=== PATIENT | female | born 1955 | race Caucasian/White ===

== ENCOUNTER 2019-01-01 16:47 | Inpatient (IN) | payer MEDICARE, OTHER ==
[~2019-01-01] VITALS: Ht 182.9 cm; Wt 120.8 kg
[2019-01-01] MEDS ORDERED: NITROGLYCERIN 0.4 MG SL TABS BTL 25'S SL ONE (17:00)
[2019-01-01] MEDS ORDERED: ASPIRIN 81 MG CHEW (CHILDREN'S ASA) ONE (17:00)
[2019-01-01] MEDS ORDERED: ONDANSETRON 4 MG/2 ML (SDV) Z0FRAN ONE (17:01)
--- NOTE | 2019-01-01 17:12 | ED Chest Pain ---
General Chief Complaint: Chest Pain Stated Complaint: CHEST PAIN Nursing Triage Note: PATIENT C/O CHEST PAIN SINCE AROUND 1400. STATES THAT THE PAIN IN HER CHEST AND RADIATES DOWN BILATERAL UPPER EXTREMITIES Nursing Sepsis Screen: No Definite Risk Source: patient Exam Limitations: no limitations History of Present Illness Date Seen by Provider: January 01, 2019 Time Seen by Provider: 16:49 Initial Comments Patient presents to ER by private conveyance with her significant other and chief complaint that for the past 3 hours she's been experiencing some constant , progressively worsening, sharp chest pain and tightness across the front of her chest radiating down the bilateral shoulders and arms. She is having some nausea but no sweats. She has a little shortness of breath and does have a history of COPD but denies any wheezing. She has not had any coughing or fevers area and she has no history of coronary disease or stroke or heart failure but she did have some pains in her chest before that were diagnosed as probable bronchospasms a year or 2 ago. She's not noticing any swelling in her hands or feet. She has no orthopnea. She does smoke cigarettes about a pack per day and has high blood pressure but no hypercholesterolemia. She does take her medicines routinely. She has diabetes for which she is on Victoza. She did take some Motrin earlier but it did not help her pain. Allergies and Home Medications Allergies Coded Allergies: No Known Drug Allergies (Unverified , 01/01/19) Patient Home Medication List Home Medication List Reviewed: Yes Review of Systems Review of Systems Constitutional: No chills, No fever, No malaise EENTM: No Blurred Vision, No Double Vision Respiratory: Denies Cough; Shortness of Air; Denies Wheezing Cardiovascular: See HPI, Chest Pain; Denies Edema, Denies Syncope Gastrointestinal: Denies Abdomen Distended, Denies Abdominal Pain, Denies Constipated, Denies Diarrhea; Nausea Genitourinary: Denies Burning, Denies Discharge Musculoskeletal: No back pain, No joint pain Skin: No lesions, No lumps Past Hsqvqfy-Lyfoxy-Zqnrco Hx Patient Social History Alcohol Use: Denies Use Recreational Drug Use: No Smoking Status: Current Everyday Smoker Type Used: Cigarettes 2nd Hand Smoke Exposure: No Recent Foreign Travel: No Contact w/Someone Who Travel: No Recent Infectious Disease Expo: No Recent Hopitalizations: No Physical Abuse: No Sexual Abuse: No Mistreated: No Fear: No Seasonal Allergies Seasonal Allergies: No Past Medical History Surgeries: Yes (MELANOMA REMOVED FROM RIGHT SHOULDER AND FOREARM) Section, Hysterectomy Respiratory: No Cardiac: Yes Hypertension Neurological: 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 oz. 112.092120wg; BMI Method:Stated General Appearance: WD/WN, Anxious, Moderate Distress HEENT: Normal ENT Inspection, Moist Mucous Membranes Neck: Full Range of Motion, Normal Inspection Respiratory: Chest Non Tender, Lungs Clear, Normal Breath Sounds, No Accessory Muscle Use, No Respiratory Distress Cardiovascular: Regular Rate, Rhythm, No Edema, Normal Peripheral Pulses Gastrointestinal: Normal Bowel Sounds, Non Tender, Soft Extremity: Normal Capillary Refill, Normal Inspection, No Pedal Edema Neurologic/Psychiatric: Alert, Oriented x3 Skin: Normal Color, Warm/Dry Progress/Results/Core Measures Results/Orders Lab Results Laboratory Tests Test 01/01/19 16:59 Range/Units White Blood Count 19.0 H 4.3-11.0 10^3/uL Red Blood Count 4.90 4.35-5.85 10^6/uL Hemoglobin 15.7 11.5-16.0 G/DL Hematocrit 47 35-52 % Mean Corpuscular Volume 96 80-99 FL Mean Corpuscular Hemoglobin 32 25-34 PG Mean Corpuscular Hemoglobin Concent 34 32-36 G/DL Red Cell Distribution Width 12.5 10.0-14.5 % Platelet Count 293 130-400 10^3/uL Mean Platelet Volume 10.1 7.4-10.4 FL Neutrophils (%) (Auto) 70 42-75 % Lymphocytes (%) (Auto) 21 12-44 % Monocytes (%) (Auto) 7 0-12 % Eosinophils (%) (Auto) 1 0-10 % Basophils (%) (Auto) 1 0-10 % Neutrophils # (Auto) 13.2 H 1.8-7.8 X 10^3 Lymphocytes # (Auto) 4.0 1.0-4.0 X 10^3 Monocytes # (Auto) 1.4 H 0.0-1.0 X 10^3 Eosinophils # (Auto) 0.3 0.0-0.3 10^3/uL Basophils # (Auto) 0.1 0.0-0.1 10^3/uL Neutrophils % (Manual) 74 % Lymphocytes % (Manual) 15 % Monocytes % (Manual) 5 % Eosinophils % (Manual) 1 % Reactive Lymphocytes 5 % Blood Morphology Comment NORMAL Prothrombin Time 12.9 12.2-14.7 SEC INR Comment 0.9 0.8-1.4 Activated Partial Thromboplast Time 36 H 24-35 SEC Sodium Level 139 135-145 MMOL/L Potassium Level 3.8 3.6-5.0 MMOL/L Chloride Level 98 98-107 MMOL/L Carbon Dioxide Level 22 21-32 MMOL/L Anion Gap 19 H 5-14 MMOL/L Blood Urea Nitrogen 10 7-18 MG/DL Creatinine 0.70 0.60-1.30 MG/DL Estimat Glomerular Filtration Rate > 60 BUN/Creatinine Ratio 14 Glucose Level 244 H 70-105 MG/DL Calcium Level 9.3 8.5-10.1 MG/DL Corrected Calcium 8.9 8.5-10.1 MG/DL Magnesium Level 1.8 1.8-2.4 MG/DL Total Bilirubin 0.7 0.1-1.0 MG/DL Aspartate Amino Transf (AST/SGOT) 13 5-34 U/L Alanine Aminotransferase (ALT/SGPT) 16 0-55 U/L Alkaline Phosphatase 93 40-136 U/L Myoglobin 25.6 10.0-92.0 NG/ML Troponin T 19 H <=10 NG/L Pro-B-Type Natriuretic Peptide 202.9 H <75.0 PG/ML Total Protein 7.6 6.4-8.2 GM/DL Albumin 4.5 3.2-4.5 GM/DL My Orders Orders - JOSE LUND Continuous Ekg Monitoring (01/01/19 16:48) Ekg Tracing (01/01/19 16:48) Cbc With Automated Diff (01/01/19 17:02) Magnesium (01/01/19 17:02) Chest 1 View Ap/Pa Only (01/01/19 17:02) Comprehensive Metabolic Panel (01/01/19 17:02) Myoglobin Serum (01/01/19 17:02) Protime With Inr (01/01/19 17:02) Partial Thromboplastin Time (01/01/19 17:02) O2 (01/01/19 17:02) Lipid Panel (01/02/19 06:00) Aspirin Chewable Tablet (Baby Aspirin Ch (01/01/19 17:15) Nitroglycerin 0.4 Mg Btl 25's (Nitrostat (01/01/19 17:15) Ed Iv/Invasive Line Start (01/01/19 17:02) Troponin T (01/01/19 17:02) Probnp Fs (01/01/19 17:02) Ondansetron Injection (Zofran Injectio (01/01/19 17:15) Nitroglycerin 0.4 Mg Btl 25's (Nitrostat (01/01/19 17:00) Aspirin Chewable Tablet (Baby Aspirin Ch (01/01/19 17:00) Ondansetron Injection (Zofran Injectio (01/01/19 17:01) Morphine Injection (Morphine Injection (01/01/19 17:16) Manual Differential (01/01/19 16:59) Morphine Injection (Morphine Injection (01/01/19 17:39) Ekg Tracing (01/01/19 17:48) Ticagrelor Tablet (Brilinta Tablet) (01/01/19 18:15) Enoxaparin Injection (Lovenox Injection) (01/01/19 18:15) Morphine Injection (Morphine Injection (01/01/19 18:12) Medications Given in ED Current Medications Medications Dose Ordered Sig/Ciara Route Start Time Stop Time Status Last Admin Dose Admin Aspirin 324 mg ONCE ONCE PO 01/01/19 17:15 01/01/19 17:16 DC 01/01/19 17:07 324 MG Nitroglycerin 0.4 mg UD PRN SL 01/01/19 17:15 01/01/19 17:07 0.4 MG Ondansetron HCl 4 mg ONCE ONCE IVP 01/01/19 17:15 01/01/19 17:16 DC 01/01/19 17:05 4 MG Vital Signs/I&O 01/01/19 16:47 Pulse 93 Resp 17 B/P (MAP) 187/58 (101) Pulse Ox 98 O2 Delivery Room Air Blood Pressure Mean: 101 Progress Progress Note #1: Time: 17:10 Progress Note We will start with aspirin and nitroglycerin. Unfortunately the first EKG because of her tremor and shortness of breath has quite a bit of artifact making it difficult to interpret. There may be some elevation in aVR over that may be artifact. There is also some depression in the 3 and V5 but they are not contiguous. After we get her pain under control with either nitroglycerin or morphine we will repeat an EKG. Progress Note #2: Time: 18:20 Progress Note Nitroglycerin did nothing for her pain and was given a total of 12 mg of morphine. We have ordered another 6 mg and she says her pains really not helped any. She is not complaining anymore and seems a little more relaxed. We'll going give her Brilinta 180 mg she has already received aspirin and will give her metoprolol XL 50 mg times one and Lovenox 120 mg subcutaneous. Initial ECG Impression Date: January 01, 2019 Initial ECG Impression Time: 16:53 Initial ECG Rate: 91 Initial ECG Rhythm: Normal Sinus Initial ECG Intervals: QT (511) Initial ECG Impression: Nonspecific Changes Initial ECG Comparisson: No Previous ECG Available Comment No significant ST elevation or depression. No contiguous ST depression. We'll need to repeat with less artifact. EKG : EKG Time: 17:53 Rate: 79 Rhythm: Normal Sinus Intervals: QT (519) ECG Comparisson: Unchanged ECG Impression: Nonspecific Changes Comment No significant ST elevation or depression. Diagnostic Imaging Diagonstic Imaging: Xray Plain Films/CT/US/NM/MRI: chest (1v) Comments NAME: CARMEN RICHARDSON [facility] REC#: [id number] PT STATUS: REG ER : 1955 PHYSICIAN: JOSE LUND MD ADMIT DATE: 01/01/19/ER FS Signed Date of Exam:01/01/19 CHEST 1 VIEW AP/PA ONLY Indication: Chest pain Single AP view of the chest is obtained. COMPARISON: No previous study is available for comparison at this time. FINDINGS: Heart size and pulmonary vasculature are within normal limits, and the lungs are clear, bilaterally. IMPRESSION: Unremarkable chest. Dictated by: Dictated on workstation # [id number] Dict: 01/01/19 1725 Trans: 01/01/19 1725 [id number] Interpreted by: SATNAM OSPINA MD Electronically signed by: SATNAM OSPINA MD 01/01/195 Reviewed: Reviewed by Me Departure Communication (Admissions) Time/Spoke to Admitting Phy: 18:05 Discussed the case with Dr. Hudson and he agrees to admit the patient with consultation to Dr. Mercado. Time/Spoke to Consulting Phy: 18:10 Discussed the case with Dr. Mercado, cardiology and he agrees with Brilinta, aspirin and Lovenox. Once the patient on cardiac stepdown and get an echocardiogram in the morning. We'll repeat a troponin I as soon as the patient arrives. Impression Primary Impression: NSTEMI, initial episode of care Disposition: ADMITTED INPATIENT Condition: Stable Admissions Decision to Admit Reason: Admit from ER (General) Decision to Admit/Date: January 01, 2019 Time/Decision to Admit Time: 18:00 Copy Copies To 1: MARYSOL ROWE MD, TITUS J January 01, 2019 17:12
[2019-01-01 17:13] LABS: BASOPHILS % (AUTO) 1 % (0-10); EOSINOPHILS % (AUTO) 1 % (0-10); HEMATOCRIT 47 % (35-52); HEMOGLOBIN 15.7 G/DL (11.5-16.0); LYMPHOCYTES % (AUTO) 21 % (12-44); MEAN CORPUSCULAR HEMOGLOBIN 32 PG (25-34); MEAN CORPUSCULAR HGB CONC 34 G/DL (32-36); MEAN CORPUSCULAR VOLUME 96 FL (80-99); MEAN PLATELET VOLUME 10.1 FL (7.4-10.4); MONOCYTES % (AUTO) 7 % (0-12); NEUTROPHILS % (AUTO) 70 % (42-75); PLATELET COUNT 293 10^3/uL (130-400); RED CELL DISTRIBUTION WIDTH 12.5 % (10.0-14.5)
[2019-01-01 17:14] LABS: BASOPHILS # (AUTO) 0.1 10^3/uL (0.0-0.1); EOSINOPHILS # (AUTO) 0.3 10^3/uL (0.0-0.3); MONOCYTES # (AUTO) 1.4 X 10^3 (0.0-1.0); NEUTROPHILS # (AUTO) 13.2 X 10^3 (1.8-7.8)
[2019-01-01] MEDS ORDERED: ONDANSETRON 4 MG/2 ML (SDV) Z0FRAN IVP ONE (17:15)
[2019-01-01] MEDS ORDERED: NITROGLYCERIN 0.4 MG SL TABS BTL 25'S SL PRN ×2 (17:15→20:15)
[2019-01-01] MEDS ORDERED: ASPIRIN 81 MG CHEW (CHILDREN'S ASA) PO ONE (17:15)
[2019-01-01] MEDS ORDERED: morphine INJ 10 MG/ML 1ML (SYR OR VIAL) IVP STA ×3 (17:16→18:12)
[2019-01-01 17:25] LABS: EOSINOPHILS % (MANUAL) 1 %; LYMPHOCYTES % (MANUAL) 15 %; MONOCYTES % (MANUAL) 5 %; NEUTROPHILS % (MANUAL) 74 %; RBC MORPH NORMAL; REACTIVE LYMPHOCYTES 5 %
--- NOTE | 2019-01-01 17:25 | Diagnostic Imaging Report ---
Indication: Chest pain Single AP view of the chest is obtained. COMPARISON: No previous study is available for comparison at this time. FINDINGS: Heart size and pulmonary vasculature are within normal limits, and the lungs are clear, bilaterally. IMPRESSION: Unremarkable chest. Dictated by: Dictated on workstation # [id number]
[2019-01-01 17:26] LABS: INR 0.9 (0.8-1.4); PROTHROMBIN TIME PATIENT 12.9 SEC (12.2-14.7)
[2019-01-01 17:27] LABS: SODIUM 139 MMOL/L (135-145)
[2019-01-01 17:28] LABS: ALANINE AMINOTRANSFERASE 16 U/L (0-55); ALBUMIN 4.5 GM/DL (3.2-4.5); ALKALINE PHOSPHATASE 93 U/L (40-136); BILIRUBIN,TOTAL 0.7 MG/DL (0.1-1.0); BUN/CREATININE RATIO 14; CALCIUM 9.3 MG/DL (8.5-10.1); CARBON DIOXIDE 22 MMOL/L (21-32); CHLORIDE 98 MMOL/L (98-107); GFR ESTIMATED > 60; GLUCOSE 244 MG/DL (70-105); MAGNESIUM 1.8 MG/DL (1.8-2.4); POTASSIUM 3.8 MMOL/L (3.6-5.0); TOTAL PROTEIN 7.6 GM/DL (6.4-8.2)
[2019-01-01] MEDS ORDERED: TICAGRELOR 90 MG TABLET (BRILINTA) PO ONE (18:15)
[2019-01-01] MEDS ORDERED: ENOXAPARIN 60 MG/0.6 ML (LOVENOX) SYR SC ONE (18:15)
[2019-01-01] MEDS ORDERED: meTOproloL SUCCINATE 50 MG (TOPROL XL) TAB PO SCH (18:30)
[2019-01-01 20:00] VITALS: BP 114/66
[2019-01-01] MEDS ORDERED: CATHETER FLUSH 10 ML SYR IV PRN (20:15)
[2019-01-01] MEDS ORDERED: morphine INJ 10 MG/ML 1ML (SYR OR VIAL) IV PRN (20:15)
[2019-01-01] MEDS ORDERED: ONDANSETRON 4 MG/2 ML (SDV) Z0FRAN IV PRN (20:15)
[2019-01-01 21:00] VITALS: BP 124/65
[2019-01-01] MEDS ORDERED: ATORVASTATIN 40 MG (LIPITOR) TABLET PO SCH (21:00)
[2019-01-01] MEDS: NS IV 1000 ML 1,000 ML IV SCH (22:01)
[2019-01-01 22:02] VITALS: BP 135/78
--- NOTE | 2019-01-01 22:12 | Diagnostic Imaging Report ---
PROCEDURE: CT angiography of the chest with contrast. TECHNIQUE: Multiple contiguous axial images were obtained through the chest after uneventful bolus administration of intravenous contrast. 2D reconstructed CTA MIP acquisitions were also performed. Auto Exposure Controls were utilized during the CT exam to meet ALARA standards for radiation dose reduction. INDICATION: Chest pain. FINDINGS: There is good opacification of pulmonary arteries. There is a small intraluminal filling defect along the inferior left hilum. This cannot definitely be connected with the arterial system. This would be unusual for pulmonary vein and may represent small embolism. Otherwise, there is no evidence of pulmonary arterial filling defect. Thoracic aorta demonstrates atherosclerotic calcification without other evidence of acute abnormality. 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 There is mild diffuse centrilobular emphysema throughout the lungs. There is mild dependent atelectasis in the lung bases without significant pleural or pericardial fluid. There is low-density in the liver suggestive of steatosis. IMPRESSION: There is apparent intraluminal vessel filling defect along the inferior left hilum. This cannot be confirmed as arterial or venous. The possibility of small pulmonary embolism is not excluded. Otherwise, there is no acute abnormality identified. Dictated by: Dictated on workstation # [id number]
[2019-01-01] MEDS: inSUlin ASPART (NovoLOG) 1 UNIT/0.01 ML (CHARGE PER UNIT) SC SCH (22:37)
[2019-01-01 23:00] VITALS: BP 106/79
[2019-01-02] VITALS (29 sets, daily range): BP systolic 89–165; BP diastolic 51–100
[2019-01-02 02:14] LABS: BASOPHILS % (AUTO) 0 % (0-10); EOSINOPHILS % (AUTO) 0 % (0-10); HEMATOCRIT 44 % (35-52); HEMOGLOBIN 14.4 G/DL (11.5-16.0); LYMPHOCYTES % (AUTO) 4 % (12-44); MEAN CORPUSCULAR HEMOGLOBIN 32 PG (25-34); MEAN CORPUSCULAR HGB CONC 33 G/DL (32-36); MEAN CORPUSCULAR VOLUME 98 FL (80-99); MEAN PLATELET VOLUME 10.3 FL (7.4-10.4); MONOCYTES # (AUTO) 1.7 X 10^3 (0.0-1.0); MONOCYTES % (AUTO) 7 % (0-12); NEUTROPHILS # (AUTO) 23.5 X 10^3 (1.8-7.8); NEUTROPHILS % (AUTO) 90 % (42-75); PLATELET COUNT 280 10^3/uL (130-400); RED CELL DISTRIBUTION WIDTH 13.2 % (10.0-14.5); WHITE BLOOD COUNT 26.2 10^3/uL (4.3-11.0)
[2019-01-02 02:26] LABS: ALBUMIN 4.2 GM/DL (3.2-4.5); BILIRUBIN,TOTAL 0.3 MG/DL (0.1-1.0); CALCIUM 9.3 MG/DL (8.5-10.1); CREATININE SERUM 1.23 MG/DL (0.60-1.30); POTASSIUM 5.2 MMOL/L (3.6-5.0); TOTAL PROTEIN 7.1 GM/DL (6.4-8.2)
[2019-01-02] MEDS ORDERED: NS IV 1000 ML 1,000 ML IV SCH ×2 (06:15→12:45)
--- NOTE | 2019-01-02 06:23 | Pulmonary Consultation ---
History of Present Illness History of Present Illness Date of Consultation 01/02/19 06:17 Time Seen by Provider: 06:17 Date of Admission History of Present Illness 63yo with hx DM, COPD and current smoker presented to ED secondary to progressive sharp CP with radiation down bilateral upper extremities. Pt was also having worsening SOB, wheezing, diaphoresis and nausea. No fevers or productive cough. Pt's troponin has continued to rise to 16. RN has notified Dr. Mercado. This AM pt started having arrhythmia, EKG changes. EKG shows supraventricular bigeminy and RBBB. Cardiology is already consulted. I am consulted for pulmonary management. Allergies and Home Medications Allergies Coded Allergies: No Known Drug Allergies (Unverified , 01/01/19) Past Mgkgsyl-Jgwiig-Fbwwno Hx Patient Social History Alcohol Use: Denies Use Recreational Drug Use: No Smoking Status: Current Everyday Smoker Type Used: Cigarettes 2nd Hand Smoke Exposure: No Recent Foreign Travel: No Contact w/Someone Who Travel: No Recent Infectious Disease Expo: No Recent Hopitalizations: No Physical Abuse: No Sexual Abuse: No Mistreated: No Fear: No Immunizations Up To Date Date of Pneumonia Vaccine: January 01, 2017 Seasonal Allergies Seasonal Allergies: No Past Medical History Surgeries: Yes (MELANOMA REMOVED FROM RIGHT SHOULDER AND FOREARM) Section, Hysterectomy Respiratory: No Cardiac: Yes Hypertension 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 Genitourinary: No Gastrointestinal: No Musculoskeletal: No Endocrine: Yes Diabetes, Non-Insulin dep HEENT: No Cancer: No Psychosocial: No Integumentary: No Blood Disorders: No Review of Systems Time Seen by Provider: 06:40 Constitutional: Sweats, Malaise; No: Fever, Chills, Weakness, Other Eyes: No: Pain, Vision change, Conjunctivae inflammation, Eyelid inflammation, Other, Redness ENT: Nose congestion; No: Ear pain, Ear discharge, Nose pain, Nose discharge, Mouth pain, Mouth swelling, Throat pain, Throat swelling, Other Respiratory: Cough, Dry, Shortness of breath, SOB with excertion, Wheezing; No : Hemoptysis, Pleuritic Pain Cardiovascular: Chest Pain, Orthopnea, Paroxysmal Noc. Dyspnea, Lt Headedness Gastrointestinal: Nausea; No: Vomiting, Abdominal Pain, Diarrhea, Constipation Genitourinary: Dysuria; No Frequency, No Incontinence; Retention Sepsis Event Evaluation Height, Weight, BMI Height: 6'0.00" Weight: 256lbs. 8.0oz. 116.117367uf; 34.8 BMI Method:Stated Exam Exam Vital Signs Date Time Temp Pulse Resp B/P (MAP) Pulse Ox O2 Delivery O2 Flow Rate FiO2 01/02/19 06:00 82 14 98/67 (77) 91 Nasal Cannula 4.00 01/02/19 05:00 80 18 120/70 (87) 93 Nasal Cannula 4.00 01/02/19 04:00 94 Nasal Cannula 4.00 01/02/19 04:00 81 17 118/71 (87) 92 Nasal Cannula 4.00 01/02/19 03:00 83 12 125/80 (95) 93 Nasal Cannula 4.00 01/02/19 02:00 87 16 119/74 (89) 93 Nasal Cannula 4.00 01/02/19 01:00 92 13 165/93 (117) 95 Nasal Cannula 4.00 01/02/19 00:48 92 01/02/19 00:00 87 12 136/83 (100) 94 Nasal Cannula 4.00 01/02/19 00:00 94 Nasal Cannula 4.00 01/01/19 23:00 96 21 106/79 (88) 93 Nasal Cannula 4.00 01/01/19 22:42 Nasal Cannula 4.00 01/01/19 22:02 101 19 135/78 (97) 92 Nasal Cannula 2.00 01/01/19 21:09 Nasal Cannula 2.00 01/01/19 21:00 93 12 124/65 (84) 88 Nasal Cannula 2.00 01/01/19 20:00 92 22 114/66 (82) 92 Nasal Cannula 2.00 01/01/19 20:00 94 01/01/19 19:50 94 Nasal Cannula 2.00 01/01/19 19:10 97.6 91 16 128/55 (79) 95 Room Air 01/01/19 18:15 Nasal Cannula 2.00 95 01/01/19 16:47 93 17 187/58 (101) 98 Room Air I & O 01/02/19 07:00 Intake Total 0 ml Output Total 0 ml Balance 0 ml Height & Weight Height: 6'0.00" Weight: 256lbs. 8.0oz. 116.740088uh; 34.8 BMI Method:Stated General Appearance: WD/WN, Anxious, Moderate Distress HEENT: Normal ENT Inspection, Moist Mucous Membranes Neck: Full Range of Motion, Normal Inspection Respiratory: Chest Non Tender, Lungs Clear, Normal Breath Sounds, No Accessory Muscle Use, No Respiratory Distress Cardiovascular: Regular Rate, Rhythm, No Edema, Normal Peripheral Pulses Capillary Refill: Greater Than 3 Seconds Extremity: Normal Capillary Refill, Normal Inspection, No Pedal Edema Neurologic/Psychiatric: Alert, Oriented x3 Skin: Normal Color, Warm/Dry Results Lab Laboratory Tests 01/01/19 16:59 01/02/19 02:00 Assessment/Plan Assessment/Plan CP with NSTEMI and EKG changes -Make ICU status -Cardiology following -Nitro was given in ED however made pt nauseated and did not improve pain -Morphine CT scan shows possible PE -Lovenox was started -Check Bilateral dopplers Leukocytosis r/o sepsis -Check LA -Reilly culture, check UA -MRSA swab -Start Rocephin Hypotension -Give a liter bolus of NS Hyperkalemia -Repeat labs with mg, and phos COPDAE -Start Solumedrol IV Q 6 -SVNs -Singulair, Claritin Hx of COPD with persistent tobacco use -education -oxygen -monitor Probable JAC -Out pt testing JOSE LUIS MONTOYA DO January 02, 2019 06:23
[2019-01-02] MEDS: NS IV 1000 ML 1,000 ML IV SCH ×4 (06:25→17:13)
[2019-01-02] MEDS: ENOXAPARIN 300 MG/3 ML (LOVENOX) MULTI-DOSE VIAL SQ SCH ×2 (06:27→17:32)
[2019-01-02] MEDS ORDERED: cefTRIAXone FOR IV USE 1,000 MG in WATER (STERILE) FOR INJECTION 10 ML IV SCH (06:30)
[2019-01-02 06:51] LABS: BASOPHILS % (AUTO) 0 % (0-10); EOSINOPHILS % (AUTO) 0 % (0-10); HEMATOCRIT 42 % (35-52); HEMOGLOBIN 14.2 G/DL (11.5-16.0); LYMPHOCYTES # (AUTO) 1.6 X 10^3 (1.0-4.0); LYMPHOCYTES % (AUTO) 7 % (12-44); MEAN CORPUSCULAR HEMOGLOBIN 33 PG (25-34); MEAN CORPUSCULAR HGB CONC 34 G/DL (32-36); MEAN CORPUSCULAR VOLUME 97 FL (80-99); MEAN PLATELET VOLUME 10.5 FL (7.4-10.4); MONOCYTES % (AUTO) 9 % (0-12); NEUTROPHILS # (AUTO) 19.5 X 10^3 (1.8-7.8); NEUTROPHILS % (AUTO) 85 % (42-75); PLATELET COUNT 269 10^3/uL (130-400); RED CELL DISTRIBUTION WIDTH 13.2 % (10.0-14.5); WHITE BLOOD COUNT 23.1 10^3/uL (4.3-11.0)
--- NOTE | 2019-01-02 06:52 | Diagnostic Imaging Report ---
EXAM: CHEST 1 VIEW, AP/PA ONLY INDICATION: Shortness of breath. Chest pain. COMPARISON: Chest radiograph 01/01/2019. FINDINGS: Normal heart size and central pulmonary vascularity. Mild atelectasis or infiltrate in the right lung base has progressed since yesterday. No pleural effusion or pneumothorax. No acute osseous findings. IMPRESSION: Mild atelectasis or infiltrate in the right lung base has progressed since yesterday. Dictated by: Dictated on workstation # [id number]
[2019-01-02 06:57] LABS: SMEAR SCAN COMMENT N
[2019-01-02] MEDS: inSUlin ASPART (NovoLOG) 1 UNIT/0.01 ML (CHARGE PER UNIT) SC SCH ×4 (06:59→23:51)
[2019-01-02 07:03] LABS: BILIRUBIN,URINE NEGATIVE (NEGATIVE); CLARITY,URINE CLEAR; COLOR,URINE YELLOW; GLUCOSE, URINE (UA) 1+ (NEGATIVE); KETONES,URINE NEGATIVE (NEGATIVE); LEUKOCYTE ESTERASE ,URINE 1+ (NEGATIVE); NITRITE,URINE NEGATIVE (NEGATIVE); PH,URINE 5 (5-9); PROTEIN,URINE 2+ (NEGATIVE); UROBILINOGEN,URINE 1 MG/DL (NORMAL)
[2019-01-02 07:14] LABS: BILIRUBIN,TOTAL 0.3 MG/DL (0.1-1.0); CREATININE SERUM 1.33 MG/DL (0.60-1.30); MAGNESIUM 1.9 MG/DL (1.8-2.4); PHOSPHORUS 5.7 MG/DL (2.3-4.7); POTASSIUM 4.9 MMOL/L (3.6-5.0); TOTAL PROTEIN 6.6 GM/DL (6.4-8.2)
[2019-01-02 07:14] LABS: BACTERIA,URINE FEW /HPF; SQUAMOUS EPITHELIAL CELL,UR 0-2 /HPF; WBC,URINE 0-2 /HPF
[2019-01-02] MEDS: NS IV 1000 ML 2,000 ML IV NR (07:41)
--- NOTE | 2019-01-02 07:50 | NUR ---
1949--Pt to ICU 2 via EMS, pt attached to monitors, pt reporting chest pain, Dr Mercado notified, orders received 2105--Repeat EKG obtained, troponin elevated, labs called to Dr Mercado, CTA obtained 2209--CTA results to , ordered to obtain consent for cath in am 239--repeat troponin elevated, notified, pt continues to rate chest pain at 2/10, resting comfortably, reports that morphine makes pt drowsy, pt requiring 4L NC o2 0600--Pt's rhythm per tele changed significantly in ectopy, new EKG obtained, pt's blood pressure decreased to 60/30 at this time, pt awoken, rhythm and blood pressure improved to 100s/50s, pt is alert and oriented, reports chest pain is still at 2/10 0620--Dr Mercado notified of new EKG and pt condition, ordered to hold am dose of lovenox 0630--Pt unable to void, bladder scan performed, 570 ml noted in bladder, orders received to place [place] 0635--[place] placed
[2019-01-02] MEDS: LORATADINE (CLARITIN) 10 MG TAB PO SCH (07:54)
[2019-01-02] MEDS ORDERED: LIDOCAINE 1% INJ 20 ML 20 ML VIAL ONE ×2 (07:59→08:11)
[2019-01-02] MEDS ORDERED: HEParin (CATH LAB) 1,000 ML IV ONE (07:59)
--- NOTE | 2019-01-02 08:09 | Consultation-Cardiology ---
HPI-Cardiology Cardiology Consultation: Date of Consultation 01/02/19 Date of Admission Attending Physician Ish Hudson MD Admitting Physician Consulting Physician Jc MERCADO MD HPI: Time Seen by a Provider: 07:45 Chief Complaint: Chest pain This is a 63 year old lady with history of active smoking, copd, diabetes who presented with severe chest pain yesterday afternoon. 10/10 which improved with morphine to 6/10. substernal. no radiation. associated with cough. no exacerbation or relieving factors. overnight the chest pain reduced to 2/10 to 3 /10. Review of Systems-Cardiology Review of Systems Constitutional: As described under HPI; No As described under HPI, No no symptoms reported, No chills, No fever, No lightheadedness Eyes: No As described under HPI, No no symptoms reported, No blindness, No blurred vision, No contact lenses, No drainage, No decreased acuity, No foreign body sensation, No pain, No vision change Ears/Nose/Throat: No As described under HPI, No no symptoms reported, No chronic hearing loss, No ear discharge, No ear pain, No nasal drainage, No ulcerations Respiratory: No no symptoms reported; As described under HPI; No As described under HPI, No cough, No orthopnea; shortness of breath; No SOB with excertion Cardiovascular: No no symptoms reported; As described under HPI; No As described under HPI; chest pain; No edema, No irregular heart rate, No lightheadedness, No palpitations Gastrointestinal: No no symptoms reported, No As described under HPI, No abdomen distended, No abdominal pain, No blood streaked bowels, No constipation , No diarrhea, No nausea, No vomiting, No stool coloration changes Genitourinary: No As described under HPI, No burning, No dysuria, No discharge , No frequency, No flank pain, No hematuria, No urgency : Yes : No Skin: No rash, No skin related problems, No ulcerations Psychiatric/Neurological: No anxiety, No depression, No seizure, No focal weakness, No syncope Hematologic: No bleeding abnormalities UBS-[id number]-[id number] Hx Patient Social History Alcohol Use: Denies Use Recreational Drug Use: No Smoking Status: Current Everyday Smoker Type Used: Cigarettes 2nd Hand Smoke Exposure: No Recent Foreign Travel: No Recent Infectious Disease Expo: No Immunizations Up To Date Date of Pneumonia Vaccine: January 01, 2017 Past Medical History PMH As described under Assessment. Allergies and Home Medications Allergies Coded Allergies: No Known Drug Allergies (Unverified , 01/01/19) Home Medications Amlodipine Besylate 10 Mg Tablet, 10 MG PO DAILY, (Reported) Buspirone HCl 7.5 Mg Tablet, 7.5 MG PO BID, (Reported) Cholecalciferol (Vitamin D3) 1,000 Unit Capsule, 1,000 UNIT PO DAILY, (Reported) Citalopram Hydrobromide 40 Mg Tablet, 40 MG PO DAILY, (Reported) Glimepiride 4 Mg Tablet, 4 MG PO BID, (Reported) Krill/Om-3/Dha/Epa/Phospho/Ast 1 Each Capsule, 1,000 MG PO DAILY, (Reported) Liraglutide 0.6 Mg/0.1 Ml Pen.injctr, 1.6 MG SC HS, (Reported) Losartan Potassium 100 Mg Tablet, 100 MG PO DAILY, (Reported) Meloxicam 15 Mg Tablet, 15 MG PO DAILY, (Reported) Multivitamin 1 Each Tablet, 1 TAB PO DAILY, (Reported) Nystatin 15 Gm Oint...g., TOP BID PRN for RASH, (Reported) Pantoprazole Sodium 40 Mg Tablet.dr, 40 MG PO DAILY, (Reported) Patient Home Medication List Home Medication List Reviewed: Yes Physical Exam-Cardiology Physical Exam Vital Signs/I&O 01/02/19 01/02/19 01/02/19 01/02/19 01:00 02:00 03:00 04:00 Pulse 92 87 83 81 Resp 13 16 12 17 B/P (MAP) 165/93 (117) 119/74 (89) 125/80 (95) 118/71 (87) Pulse Ox 95 93 93 92 O2 Delivery Nasal Cannula Nasal Cannula Nasal Cannula Nasal Cannula O2 Flow Rate 4.00 4.00 4.00 4.00 01/02/19 01/02/19 01/02/19 01/02/19 04:00 05:00 06:00 07:00 Pulse 80 82 72 Resp 18 14 B/P (MAP) 120/70 (87) 98/67 (77) Pulse Ox 94 93 91 O2 Delivery Nasal Cannula Nasal Cannula Nasal Cannula O2 Flow Rate 4.00 4.00 4.00 5/10/19 5/10/19 5/10/19 5/10/19 07:00 07:42 08:00 08:00 Temp 99.2 Pulse 81 88 Resp 12 25 B/P (MAP) 131/100 (110) 134/79 (97) Pulse Ox 92 96 O2 Delivery Nasal Cannula Nasal Cannula Nasal Cannula O2 Flow Rate 4.00 4.00 4.00 01/02/19 01/02/19 01/02/19 01/02/19 08:36 08:54 09:00 10:00 Pulse 90 85 Resp 11 17 B/P (MAP) 126/69 (88) 139/74 (95) Pulse Ox 93 95 99 96 O2 Delivery Nasal Cannula Nasal Cannula Nasal Cannula Nasal Cannula O2 Flow Rate 4.00 4.00 4.00 4.00 01/02/19 01/02/19 01/02/19 01/02/19 10:24 11:00 11:00 11:05 Temp 99.7 Pulse 80 80 Resp 19 10 B/P (MAP) 132/100 (111) Pulse Ox 99 99 97 O2 Delivery Nasal Cannula NIV Bilevel O2 Flow Rate 40.00 4.00 FiO2 40 01/02/19 11:32 B/P (MAP) 130/50 01/02/19 00:00 Intake Total 0 ml Output Total 0 ml Balance 0 ml Capillary Refill : Greater Than 3 Seconds Constitutional: appears stated age, AAO x 3, apparent distress, well-developed , well-nourished HEENT: PERRL; No normal ENT inspection, No TMs normal, No pharynx normal, No scleral icterus (R), No scleral icterus (L), No pale conjunctivae (R), No pale conjunctivae (L), No photophobia, No TM abnormal (R), No TM abnormal (L), No pharyngeal erythema, No tonsillar exudate, No other, No discharge, No EOMI; hearing is well preserved; No hard of hearing; oral hygience is good; No ulceration, No xanthelasmas are seen Neck: No non-tender, No full range of motion, No supple, No normal inspection, No carotid bruit, No limited range of motion, No lymphadenopathy (R), No lymphadenopathy (L), No tender lateral, No tender midline, No thyromegaly, No other; carotid pulses are 2 + bilaterally; No with good upstrokes Respiratory: accessory muscle use, respiratory distress, chest is bilaterally symmetric, lungs clear to auscultation Cardiovascular: regular rate-rhythm; No irregularly irregular, No extra beats, No parasternal heave is noted, No JVD, No edema, No bradycardia, No tachycardia , No point of maximal impulse, No cardiac thrills are palpable; S1 and S2; No gallop/S3, No gallop/S4, No diastolic murmur, No systolic murmur, No friction rub, No click, No other Gastrointestinal: No tender, No soft, No round, No distended, No pulsatile mass , No organomegaly, No guarding, No rebound, No tenderness, No hernia, No mass, No audible bowel sounds, No abnormal bowel sounds, No abdominal bruits, No spleenomegaly, No other Rectal: deferred Extremities: No normal range of motion, No non-tender, No normal inspection, No pedal edema, No calf tenderness, No normal capillary refill, No pelvis stable , No calf tenderness, No inflammation, No pedal edema, No slow capillary refill , No swelling, No other, No abrasion, No clubbing, No cyanosis, No ecchymosis, No laceration, No no lower extremity edema bilateral, No significant edema, No tenderness, No wound Neurologic/Psychiatric: no motor/sensory deficits, alert, normal mood/affect, oriented x 3, power is 5/5 both on sides Skin: No normal color, No warm/dry, No cyanosis, No cool, No diaphoresis, No damp, No ecchymosis, No jaundice, No mottled, No pallor, No rash, No tattoos/ piercings, No ulcerations, No rash on exposed areas, No ulcerations on exposed areas, No other Data Review Labs Laboratory Tests 01/01/19 16:59: White Blood Count 19.0H, Red Blood Count 4.90, Hemoglobin 15.7, Hematocrit 47, Mean Corpuscular Volume 96, Mean Corpuscular Hemoglobin 32, Mean Corpuscular Hemoglobin Concent 34, Red Cell Distribution Width 12.5, Platelet Count 293, Mean Platelet Volume 10.1, Neutrophils (%) (Auto) 70, Lymphocytes (%) (Auto) 21 , Monocytes (%) (Auto) 7, Eosinophils (%) (Auto) 1, Basophils (%) (Auto) 1, Neutrophils # (Auto) 13.2H, Lymphocytes # (Auto) 4.0, Monocytes # (Auto) 1.4H, Eosinophils # (Auto) 0.3, Basophils # (Auto) 0.1, Neutrophils % (Manual) 74, Lymphocytes % (Manual) 15, Monocytes % (Manual) 5, Eosinophils % (Manual) 1, Reactive Lymphocytes 5, Blood Morphology Comment NORMAL, Prothrombin Time 12.9, INR Comment 0.9, Activated Partial Thromboplast Time 36H, Sodium Level 139, Potassium Level 3.8, Chloride Level 98, Carbon Dioxide Level 22, Anion Gap 19H, Blood Urea Nitrogen 10, Creatinine 0.70, Estimat Glomerular Filtration Rate > 60 , BUN/Creatinine Ratio 14, Glucose Level 244H, Calcium Level 9.3, Corrected Calcium 8.9, Magnesium Level 1.8, Total Bilirubin 0.7, Aspartate Amino Transf ( AST/SGOT) 13, Alanine Aminotransferase (ALT/SGPT) 16, Alkaline Phosphatase 93, Myoglobin 25.6, Troponin T 19H, Pro-B-Type Natriuretic Peptide 202.9H, Total Protein 7.6, Albumin 4.5 01/01/19 20:09: D-Dimer 0.54H, Troponin I 0.745*H, B-Type Natriuretic Peptide 69.0 01/01/19 22:24: Glucometer 314H 01/02/19 02:00: White Blood Count 26.2H, Red Blood Count 4.46, Hemoglobin 14.4, Hematocrit 44, Mean Corpuscular Volume 98, Mean Corpuscular Hemoglobin 32, Mean Corpuscular Hemoglobin Concent 33, Red Cell Distribution Width 13.2, Platelet Count 280, Mean Platelet Volume 10.3, Neutrophils (%) (Auto) 90H, Lymphocytes (%) (Auto) 4L , Monocytes (%) (Auto) 7, Eosinophils (%) (Auto) 0, Basophils (%) (Auto) 0, Neutrophils # (Auto) 23.5H, Lymphocytes # (Auto) 1.0, Monocytes # (Auto) 1.7H, Eosinophils # (Auto) 0.0, Basophils # (Auto) 0.0, Sodium Level 137, Potassium Level 5.2H, Chloride Level 103, Carbon Dioxide Level 21, Anion Gap 13, Blood Urea Nitrogen 13, Creatinine 1.23, Estimat Glomerular Filtration Rate 44, BUN/ Creatinine Ratio 11, Glucose Level 271H, Calcium Level 9.3, Corrected Calcium 9.1, Total Bilirubin 0.3, Aspartate Amino Transf (AST/SGOT) 80H, Alanine Aminotransferase (ALT/SGPT) 25, Alkaline Phosphatase 89, Total Protein 7.1, Albumin 4.2, Troponin I 16.131*H, Triglycerides Level 190H, Cholesterol Level 237H, LDL Cholesterol Direct 178H, VLDL Cholesterol 38, HDL Cholesterol 39L 01/02/19 06:30: White Blood Count 23.1H, Red Blood Count 4.35, Hemoglobin 14.2, Hematocrit 42, Mean Corpuscular Volume 97, Mean Corpuscular Hemoglobin 33, Mean Corpuscular Hemoglobin Concent 34, Red Cell Distribution Width 13.2, Platelet Count 269, Mean Platelet Volume 10.5H, Neutrophils (%) (Auto) 85H, Lymphocytes (%) (Auto) 7L, Monocytes (%) (Auto) 9, Eosinophils (%) (Auto) 0, Basophils (%) (Auto) 0, Neutrophils # (Auto) 19.5H, Lymphocytes # (Auto) 1.6, Monocytes # (Auto) 2.0H, Eosinophils # (Auto) 0.0, Basophils # (Auto) 0.0, Sodium Level 136, Potassium Level 4.9, Chloride Level 104, Carbon Dioxide Level 22, Anion Gap 10, Blood Urea Nitrogen 15, Creatinine 1.33H, Estimat Glomerular Filtration Rate 40, BUN/ Creatinine Ratio 11, Glucose Level 162H, Lactic Acid Level 2.35*H, Calcium Level 9.0, Corrected Calcium 9.0, Phosphorus Level 5.7H, Magnesium Level 1.9, Total Bilirubin 0.3, Aspartate Amino Transf (AST/SGOT) 96H, Alanine Aminotransferase (ALT/SGPT) 26, Alkaline Phosphatase 81, Total Protein 6.6, Albumin 4.0, Smear Scan N 01/02/19 06:55: Urine Color YELLOW, Urine Clarity CLEAR, Urine pH 5, Urine Specific [place] 1.010L, Urine Protein 2+H, Urine Glucose (UA) 1+H, Urine Ketones NEGATIVE, Urine Nitrite NEGATIVE, Urine Bilirubin NEGATIVE, Urine Urobilinogen 1, Urine Leukocyte Esterase 1+H, Urine RBC (Auto) NEGATIVE, Urine RBC NONE, Urine WBC 0-2 , Urine Squamous Epithelial Cells 0-2, Urine Crystals NONE, Urine Bacteria FEWH , Urine Casts PRESENT, Urine Hyaline Casts 2-5H, Urine Mucus NEGATIVE, Urine Culture Indicated NO 01/02/19 08:09: Blood Gas Puncture Site RT RADIAL, Blood Gas Patient Temperature 99.2, Arterial Blood pH 7.25*L, Arterial Blood Partial Pressure CO2 58H, Arterial Blood Partial Pressure O2 75L, Arterial Blood HCO3 24, Arterial Blood Total CO2 25.9, Arterial Blood Oxygen Saturation 95, Arterial Blood Base Excess -2.0, Denny Test YES-POS, Blood Gas Ventilator Setting NO, Blood Gas Inspired Oxygen 4 01/02/19 09:20: Lactic Acid Level 2.48*H 01/02/19 10:18: Glucometer 168H Microbiology 01/02/19 Influenza Types A,B Antigen (SYLVIE) - Final, Complete ECG Impression ECG Initial ECG Rhythm: Normal Sinus Initial ECG Impression: Nonspecific Changes A/P-Cardiology Assessment/Admission Diagnosis NSTEMI, refractory to medical therapy. Acute respiratory failure, Active smoking, Diabetes, COPD Plan Non-STEMI refractory to medical therapy, Coronary angiography today, aspirin, Brilinta. hold lovenox for now. The patient has sepsis with leukocytosis, respiratory acidosis, lactic acidosis , mild fever. Source is likely right lower lobe pneumonia. However the patient is having non-STEMI with continuous chest pain refractory to medical therapy with significantly elevated troponin. Therefore coronary angiography is emergent/urgent. I have discussed with Dr. Riggs and he agrees with the plan. Acute respiratory failure, intubated/ventilated. Sepsis, likely right lower lobe pneumonia. Broad-spectrum antibiotic. Due to coronary angiography, I will recommend IV vancomycin to be added. Active smoking, strongly recommended to quit. Diabetes, deferred to the primary team. Critically ill patient, over 30 minutes were spent taking care of this patient. Thank you for your consultation. Please call me if you have any questions. Bety Mercado MD, FACP, FACC, FSCAI, FHRS, CCDS Interventional Cardiology Cardiac Electrophysiology Vascular Medicine and Endovascular Interventions Clinical Quality Measures AMI/AHF: ASA po Prior to arrival: No DVT/VTE Risk/Contraindication: Risk Factor Score Per Nursin RFS Level Per Nursing on Admit: 4+=Very High Jc MERCADO MD January 02, 2019 08:09
[2019-01-02] MEDS ORDERED: HEParin (CATH LAB) 2,000 ML IV ONE (08:11)
[2019-01-02 08:16] LABS: ABG OXYGEN SATURATION 95 % (94-100); ABG PCO2 58 MMHG (35-45); ABG PO2 75 MMHG (79-93); ABG TCO2 25.9 MMOL/L (21.0-31.0)
[2019-01-02 08:19] LABS: ABG PH 7.25 (7.37-7.43); ALLENS TEST YES-POS; INSPIRED O2 4; PATIENT TEMP 99.2; VENTILATOR NO
[2019-01-02] MEDS: lisINopril 5 MG (PRINIVIL) TABLET PO SCH (08:25)
[2019-01-02] MEDS: meTOproloL SUCCINATE 50 MG (TOPROL XL) TAB PO SCH (08:25)
--- NOTE | 2019-01-02 08:26 | NUR ---
TOPROL AND LISINOPRIL HELD PER DR KHAN.
[2019-01-02] MEDS ORDERED: RT-ALBUTEROL/IPRATROPIUM 3 ML (DUONEB) VIAL INH SCH ×2 (09:00→12:00)
[2019-01-02] MEDS: ASPIRIN E.C. 81 MG (ECOTRIN) TAB PO SCH (09:02)
[2019-01-02] MEDS: TICAGRELOR 90 MG TABLET (BRILINTA) PO SCH ×2 (09:02→21:27)
[2019-01-02] MEDS ORDERED: GLIM4TAB PO (09:49)
[2019-01-02] MEDS ORDERED: MULT1TAB69 PO (09:49)
[2019-01-02] MEDS ORDERED: NYST15OI13 TOP (09:49)
[2019-01-02] MEDS ORDERED: CITA40TA11 PO (09:49)
[2019-01-02] MEDS ORDERED: KRIL1CAP18 PO (09:49)
[2019-01-02] MEDS ORDERED: LIRA0.6P SC (09:49)
[2019-01-02] MEDS ORDERED: LOSA100T57 PO (09:49)
[2019-01-02] MEDS ORDERED: PANT40TA3 PO (09:49)
[2019-01-02] MEDS ORDERED: BUSP7.5T5 PO (09:49)
[2019-01-02] MEDS ORDERED: MELO15TA39 PO (09:49)
[2019-01-02] MEDS ORDERED: AMLO10TA7 PO (09:49)
[2019-01-02] MEDS ORDERED: CHOL10007 PO (09:50)
--- NOTE | 2019-01-02 09:51 | NUR ---
SPOKE WITH THE PATIENT ABOUT HER MEDICATIONS, WE WENT OVER THE EXT MED HX AND SHE VERIFIED HOW SHE TAKES THEM. SHE ALSO LISTED HER OTC MEDS.
[2019-01-02] MEDS ORDERED: methylPREDNISolone 125 MG (Solu-MEDROL) VIAL IVP NR (10:28)
[2019-01-02] MEDS ORDERED: MIDAZOLAM 5 MG/5 ML (VERSED) VIAL ONE (10:40)
[2019-01-02] MEDS ORDERED: fentaNYL INJECTION 100 MCG/2 ML AMP ONE ×2 (10:40→11:57)
--- NOTE | 2019-01-02 10:48 | Diagnostic Imaging Report ---
PROCEDURE: US Venous Lower Ext [place]. TECHNIQUE: Multiple real-time grayscale images were obtained over the lower extremities in various projections, bilaterally. Additional duplex Doppler and color Doppler images were also obtained. INDICATION: Chest pain. There is no evidence of right or left lower extremity DVT. Both lower extremity deep venous systems demonstrate normal compressibility with normal response to augmentation and Valsalva. No fluid collection or mass is seen. IMPRESSION: No evidence of right or left lower extremity DVT. Dictated by: Dictated on workstation # [id number]
[2019-01-02] MEDS ORDERED: PROPOFOL DRIP (ICU) 100 ML IV ONE (10:54)
--- NOTE | 2019-01-02 11:05 | NUR ---
DR MONTOYA IN ROOM W/ PT, RT, AND THIS RN TO INTUBATE PT. PT AGREES TO INTUBATION AND CONSENT SIGNED. PT RECEIVED VERSED 2MG IVP AND FENTANYL 50MCG IVP @1105AM FOR SEDATION. @1110AM PT RECEIVED ADDITIONAL 2MG VERSED IVP. 11:19AM PT INTUBATED BY DR MONTOYA W/ SIZE 8ETT, PLACED 22-23@LIP. PROPOFOL GTT STARTED AT 20 (SEE EMAR FOR DETAILS) AND ADDITIONAL 75MCG IVP FENTANYL GIVEN PER DR MONTOYA. OG INSERTED AND CONNECTED TO LIS W/O DIFFICULTY AND STAT CXR ORDERED FOR PLACEMENT.
[2019-01-02] MEDS: PROPOFOL DRIP (ICU) 100 ML IV SCH ×4 (11:32→21:39)
--- NOTE | 2019-01-02 11:37 | NUR ---
PT LEFT FLOOR W/ EQUIPMENT OR MACHINERY CLEANER STAFF.
--- NOTE | 2019-01-02 11:37 | Pulmonary Progress Note ---
Subjective Time Seen by a Provider: 11:34 Subjective/Events-last exam Called back to bedside secondary to worsening respiratory distress. ABG shows acute respiratory failure. Pt is now on BiPAP and family at bedside. Sepsis Event Evaluation Height, Weight, BMI Height: 6'0.00" Weight: 261lbs. 9.0oz. 118.067207sn; 34.8 BMI Method:Stated Focused Exam Lactate Level 01/02/19 06:30: Lactic Acid Level 2.35*H 01/02/19 09:20: Lactic Acid Level 2.48*H Lactic Acid Level Laboratory Tests Test 01/02/19 09:20 Lactic Acid Level 2.48 MMOL/L (0.50-2.00) *H Exam Exam Vital Signs Date Time Temp Pulse Resp B/P (MAP) Pulse Ox O2 Delivery O2 Flow Rate FiO2 01/02/19 10:24 80 19 99 40.00 01/02/19 10:00 85 17 139/74 (95) 96 Nasal Cannula 4.00 01/02/19 09:00 90 11 126/69 (88) 99 Nasal Cannula 4.00 01/02/19 08:54 95 Nasal Cannula 4.00 01/02/19 08:36 93 Nasal Cannula 4.00 01/02/19 08:00 Nasal Cannula 4.00 01/02/19 08:00 88 25 134/79 (97) 96 Nasal Cannula 4.00 01/02/19 07:42 99.2 01/02/19 07:00 81 12 131/100 (110) 92 Nasal Cannula 4.00 01/02/19 07:00 72 01/02/19 06:00 82 14 98/67 (77) 91 Nasal Cannula 4.00 01/02/19 05:00 80 18 120/70 (87) 93 Nasal Cannula 4.00 01/02/19 04:00 94 Nasal Cannula 4.00 01/02/19 04:00 81 17 118/71 (87) 92 Nasal Cannula 4.00 01/02/19 03:00 83 12 125/80 (95) 93 Nasal Cannula 4.00 01/02/19 02:00 87 16 119/74 (89) 93 Nasal Cannula 4.00 01/02/19 01:00 92 13 165/93 (117) 95 Nasal Cannula 4.00 01/02/19 00:48 92 01/02/19 00:00 87 12 136/83 (100) 94 Nasal Cannula 4.00 01/02/19 00:00 94 Nasal Cannula 4.00 01/01/19 23:00 96 21 106/79 (88) 93 Nasal Cannula 4.00 01/01/19 22:42 Nasal Cannula 4.00 01/01/19 22:02 101 19 135/78 (97) 92 Nasal Cannula 2.00 01/01/19 21:09 Nasal Cannula 2.00 01/01/19 21:00 93 12 124/65 (84) 88 Nasal Cannula 2.00 01/01/19 20:00 92 22 114/66 (82) 92 Nasal Cannula 2.00 01/01/19 20:00 94 01/01/19 19:50 94 Nasal Cannula 2.00 01/01/19 19:10 97.6 91 16 128/55 (79) 95 Room Air 01/01/19 18:15 Nasal Cannula 2.00 95 01/01/19 16:47 93 17 187/58 (101) 98 Room Air I & O 01/02/19 07:00 Intake Total 0 ml Output Total 100 ml Balance -100 ml Height & Weight Height: 6'0.00" Weight: 261lbs. 9.0oz. 118.580234wk; 34.8 BMI Method:Stated General Appearance: WD/WN, Anxious, Chronically ill, Severe Distress HEENT: Normal ENT Inspection, Moist Mucous Membranes Neck: Full Range of Motion, Normal Inspection Respiratory: Accessory Muscle Use, Decreased Breath Sounds, Respiratory Distress Cardiovascular: Regular Rate, Rhythm, No Edema, Normal Peripheral Pulses Capillary Refill: Greater Than 3 Seconds Gastrointestinal: normal bowel sounds, non tender, soft, no organomegaly, no pulsatile mass Extremity: Normal Capillary Refill, Normal Inspection, No Pedal Edema Neurologic/Psychiatric: Alert Skin: Normal Color, Warm/Dry Results Lab Laboratory Tests 01/01/19 16:59 01/02/19 02:00 01/02/19 06:30 Assessment/Plan Assessment/Plan Acute respiratory failure -- much worse -AGB shows acute respiratory acidosis -Intubate pt secondary to progressive respiratory failure CP with NSTEMI and EKG changes -Dr. Espinoza-- I agree pt needs cardiac cath -Cardiology following -Nitro was given in ED however made pt nauseated and did not improve pain -Morphine CT scan shows possible PE -- I am not convinced this is PE -Lovenox was started -Bilateral dopplers -- neg Severe sepsis secondary to pneumonia -Pt is on severe sepsis protocol -Reilly culture, check UA -MRSA swab -Start Rocephin Metabolic lactic acidosis -IVF -MOnitor Hypotension -Give a liter bolus of NS Hyperkalemia -Repeat labs with mg, and phos COPDAE -Start Solumedrol IV Q 6 -SVNs -Singulair, Claritin Hx of COPD with persistent tobacco use -education -oxygen -monitor Probable JAC -Out pt testing I have discussed plan of care in detail with family, Dr. Mercado, and medical staff. Time spent with patient, family, and medical staff is 60min not including this morning's exam or procedure. Critical Care: Critically Ill Patient Time spent with patient (mins): 45 JOSE LUIS MONTOYA DO January 02, 2019 11:37
--- NOTE | 2019-01-02 11:40 | Diagnostic Imaging Report ---
INDICATION: Intubated COMPARISON: 01/02/19 at 6:43 a.m. FINDINGS: Single view chest demonstrates the ET tube in the midtrachea. There is an NG tube well within the stomach. There is no pneumothorax. Heart is enlarged. There is some increasing perihilar and basilar opacities. IMPRESSION: 1. Well-positioned support lines. 2. Increasing opacities in the bases and perihilar regions. Dictated by: Dictated on workstation # [id number]
--- NOTE | 2019-01-02 11:55 | Pulmonary Procedures ---
Pulmonary Procedures Date of Procedure Date of Service: January 02, 2019 Reason for Intubation: Acute respiratory failure Time of Intubation: 11:54 Intubation Method: orotracheal Tube Size: 8 Medications: Fentanyl, Propofol, Versed Positive End Tide CO2: Yes Breath Sounds after Intubation: bilateral-equal Intubation Complications: no complications Post Intubation Xray: Yes JOSE LUIS MONTOYA DO January 02, 2019 11:55
[2019-01-02] MEDS ORDERED: MIDAZOLAM 2 MG/2 ML (VERSED) VIAL ONE (11:59)
[2019-01-02] MEDS ORDERED: PHARMACY TO DOSE IV SCH (12:00)
[2019-01-02] MEDS ORDERED: HEParin 1000 UNIT/ML (10ML VIAL) FOR BOLUS ONE (12:01)
[2019-01-02] MEDS ORDERED: NITRO DRIP 25000 MCG/D5W 250 ML IV ONE (12:01)
[2019-01-02] MEDS ORDERED: VANCOMYCIN INJECTION 2,250 MG in NS IV 500 ML 500 ML IV NR (12:09)
--- NOTE | 2019-01-02 12:28 | NUR ---
VANCOMYCIN DOSING SCR 1.33; CRCL ~ 60; BOLUS VANC 20 MG/KG X 118 KG ~ 2250 MG THEN VANC 15 MG/KG ~ 1750 MG Q24H CHECK TROUGH LEVEL 01/04 AT 1200 HOLD DOSE AND CONTACT PHARMACY IF LEVEL IS GREATER THAN 20
[2019-01-02] MEDS ORDERED: PATIENT MAY USE OWN MEDS, ALL PO SCH (12:45)
--- NOTE | 2019-01-02 12:45 | Coronary Angiography & PCI ---
Coronary Angiography & PCI DATE OF PROCEDURE: 01/02/19 INDICATION: Non-STEMI refractory to medical therapy PREOPERATIVE DIAGNOSIS: Non-STEMI refractory to medical therapy POSTOPERATIVE DIAGNOSIS: Severe OM1 stenosis treated with a drug-eluting stent. HISTORY: This is a 63-year-old lady with history of active smoking, COPD, diabetes who presents with a prolonged episode of chest pain which was initially 10/10. She was given aspirin, Brilinta, Lovenox, high dose morphine but the pain continued. When I saw the patient the patient was still having 3/ 10 chest pain. She was also found to have sepsis with leukocytosis, lactic acidosis, mild fever. However I discussed with Dr. Riggs and because of non- STEMI refractory to medical therapy with ongoing chest pain with a significantly increased troponin and decided to proceed with urgent coronary angiography. Due to severe respiratory failure and respiratory acidosis, the patient was intubated just prior to coming down to the [facility]. PROCEDURES PERFORMED: 1.Coronary angiography. 2.Left heart catheterization. 3.PCI to the OM1 with 2 drug-eluting stents. COMPLICATIONS: None. SPECIMENS: None. ESTIMATED BLOOD LOSS: 10 mL ANESTHESIA: Conscious sedation ANTICOAGULATION: IV heparin CONTRAST: 120 mL. FLUOROSCOPY: 5.6 minutes. FLOUROSCOPY DOSE: 2275 mgy. PROCEDURE DETAILS: The patient is a 63 female and was brought to the rn cardiac cath after informed consent was taken. All the risks and complications were explained in detail; this included the risk of bleeding, vascular damage, stroke , OR and even . The patient was draped and prepped in the usual sterile fashion. Denny's test was abnormal therefore access was not gained in the right radial artery. Access was gained in the right femoral artery with a 6 Polish sheath. Coronary angiography and left heart catheterization was performed with a JR4 and JL4 catheter. FINDINGS: 1.Left main: Patent. 2.LAD: Long severe stenosis in the proximal/midsegment. 3.Left circumflex artery: Subtotal occlusion of the proximal OM1 artery with CHRIS 2 flow. Mild haziness suggesting culprit artery. 4.RCA: Moderate to severe mid RCA stenosis. 5.Left heart catheterization: LV pressure 111/28 mmHg. LVEDP 31 mmHg. Aortic pressure 105/61 mmHg. Preserved LV function with no clear wall motion abnormalities. No gradient across the aortic valve. RECOMMENDATIONS: PCI to OM1 artery is recommended. INTERVENTION DETAILS: EBU guide catheter, whisper extra-support guidewire, IV heparin for anticoagulation. ACT was done once which was 237 seconds. The lesion was crossed with the whisper wire and the tip of the whisper wire was placed in the distal OM1 artery. The lesion was direct stented with a science Raine 2.5 x 15 mm stent at 18 aide for 30 seconds. Post-stent angiogram showed the just distal to the distal edge of the stent there was at least a moderate stenosis with possible haziness suggesting possible dissection. Therefore another science Raine 2.5 x 15 stent was placed with an overlap with the previous stent at 14 aide for 26 seconds. The stent balloon was then pulled back and the overlap area was postdilated at 18 aide for 30 seconds. The stent balloon was taken out and post-angiogram showed excellent results with CHRIS 3 flow with no residual stenosis. Manual compression will be held at the right groin site. CONCLUSIONS: 1. Culprit artery was a severe subtotal OM 1 artery which was successfully treated with 2 drug-eluting stents. Dual antiplatelet therapy, high-dose statin. 2. Severe LAD stenosis and moderate to severe mid RCA stenosis can be treated as a stage procedure if required. 3. Continue IV fluids, transferred back to the ICU. Patient will need added vancomycin. I've already discussed with Dr. Riggs the director of regulatory affairs. Bety Mercado MD, FACP, FACC, [facility] Interventional Cardiology Jc MERCADO MD January 02, 2019 12:45
--- NOTE | 2019-01-02 12:57 | NUR ---
PT BACK TO [facility] FROM [facility] VIA BED. RIGHT GROIN SHEATH NOTED. SEE POST CATH INTERVENTION FOR FURTHER DETAILS.
[2019-01-02] MEDS: CEFEPIME INJECTION 1,000 MG in WATER (STERILE) FOR INJECTION 10 ML IV SCH ×3 (13:17→23:44)
[2019-01-02] MEDS: methylPREDNISolone 40 MG/ML (Solu-MEDROL) VIAL IV SCH ×3 (13:25→23:44)
[2019-01-02] MEDS: fentaNYL INJECTION 1,250 MCG in NS (IVPB) 250 ML IV SCH (13:33)
--- NOTE | 2019-01-02 13:48 | NUR ---
DR MONTOYA INFORMED OF DECREASE IN BP, NEW ORDERS RECEIVED FOR PICC LINE PLACEMENT.
[2019-01-02] MEDS ORDERED: MIDAZOLAM 5 MG/5 ML (VERSED) VIAL IJ ONE (14:05)
[2019-01-02] MEDS ORDERED: fentaNYL INJECTION 100 MCG/2 ML AMP INJ ONE (14:05)
--- NOTE | 2019-01-02 14:18 | Diagnostic Imaging Report ---
INDICATION: ET tube placement. COMPARISON: 01/02/2019 at 11:30 a.m. FINDINGS: Single view of the chest demonstrates the ET tube in the [id number] trachea. The NG tube is well within the stomach. Aeration of the lungs is unchanged. No pneumothorax. IMPRESSION: Support lines as described. Unchanged aeration of the lungs. Dictated by: Dictated on workstation # [id number]
[2019-01-02 14:34] LABS: ABG BASE EXCESS -5.7 MMOL/L (-2.5-2.5); ABG OXYGEN SATURATION 96 % (94-100); ABG PCO2 59 MMHG (35-45); ABG PO2 90 MMHG (79-93)
[2019-01-02 14:36] LABS: ABG PH 7.19 (7.37-7.43); ALLENS TEST YES-POS; INSPIRED O2 80%; PATIENT TEMP 99.8; VENTILATOR YES
--- NOTE | 2019-01-02 14:50 | NUR ---
HEART RATE DECREASED TO 40'S, BP 89/50. DR MONTOYA INFORMED, NEW ORDERS RECEIVED TO START LEVOPHED. DR KHAN ALSO INFORMED, OK TO START LEVOPHED. PICC LINE BEING PLACED AT THIS TIME.
[2019-01-02] MEDS: NOREPINEPHRINE 4 MG in NS (IVPB) 250 ML IV SCH ×3 (15:13→21:40)
[2019-01-02] MEDS: RT-ALBUTEROL/IPRATROPIUM 3 ML (DUONEB) VIAL INH SCH ×3 (15:35→22:30)
--- NOTE | 2019-01-02 16:05 | Diagnostic Imaging Report ---
INDICATION: Line placement. TECHNIQUE: Single view chest 3:16 p.m. CORRELATION STUDY: 01/02/2019. FINDINGS: Endotracheal tube and gastric tube remain in place. Since the prior study, a right-sided central line has been placed. Tip projects over the high right atrium just below the cavoatrial junction. Heart size remains enlarged. Pulmonary vascular congestion and perihilar edema persists. Additional areas of consolidation about the central lung ham are noted. Probable edema with superimposed infiltrate not excluded. IMPRESSION: 1. Right left-sided central line has been placed, tip projects at the high right atrium. 2. Cardiac enlargement, pulmonary vascular congestion and likely perihilar edema. Superimposed infiltrate would be difficult to exclude. Followup imaging recommended. Dictated by: Dictated on workstation # [id number]
[2019-01-02 16:25] LABS: ABG BASE EXCESS -7.9 MMOL/L (-2.5-2.5); ABG OXYGEN SATURATION 97 % (94-100); ABG PCO2 53 MMHG (35-45); ABG PO2 95 MMHG (79-93); ABG TCO2 20.6 MMOL/L (21.0-31.0)
[2019-01-02 16:28] LABS: ABG PH 7.18 (7.37-7.43); ALLENS TEST POSITIVE; INSPIRED O2 80%; PATIENT TEMP 99.3; VENTILATOR YES
[2019-01-02] MEDS ORDERED: ATROPINE INJ 0.4 MG/ML SDV ONE (16:45)
[2019-01-02] MEDS ORDERED: ATROPINE INJECTION 1 MG/10 ML SYR (ABBOTT) ONE (16:54)
--- NOTE | 2019-01-02 16:57 | Diagnostic Imaging Report ---
INDICATION: PICC line reposition. COMPARISON: 01/02/2019 at 3:16 p.m. FINDINGS: Single view of the chest demonstrates slight withdrawal of the right entering PICC line to the SVC right atrial junction. The remaining support lines are intact. Aeration is unchanged. There is no pneumothorax. IMPRESSION: Slight withdrawal of the right entering PICC line to the SVC right atrial junction. Dictated by: Dictated on workstation # [id number]
[2019-01-02] MEDS: PANTOPRAZOLE 40 MG (PROTONIX) VIAL IV SCH (18:26)
[2019-01-02] MEDS: ENOXAPARIN 40 MG/0.4 ML (LOVENOX) SYR SQ SCH (18:26)
[2019-01-02 19:16] LABS: ABG BASE EXCESS -8.8 MMOL/L (-2.5-2.5); ABG OXYGEN SATURATION 99 % (94-100); ABG PCO2 43 MMHG (35-45); ABG PO2 122 MMHG (79-93); ABG TCO2 18.6 MMOL/L (21.0-31.0)
[2019-01-02 19:20] LABS: ABG PH 7.23 (7.37-7.43)
[2019-01-02 19:21] LABS: ALLENS TEST POSITIVE; INSPIRED O2 80%; PATIENT TEMP 99.1; VENTILATOR YES
--- NOTE | 2019-01-02 19:30 | NUR ---
CRITICAL ABG RESULTS CALLED TO E-ICU. DR. BLUE ORDERED TO TURN FIO2 FROM 80% DOWN TO 60% AT THIS TIME. ORDER REPORTED TO RT NICOLETTE AT THIS TIME.
[2019-01-02] MEDS ORDERED: TICAGRELOR 90 MG TABLET (BRILINTA) PO SCH (21:00)
[2019-01-02] MEDS: ATORVASTATIN 80 MG (LIPITOR) TABLET PO SCH (21:27)
[2019-01-02] MEDS: MONTELUKAST 10 MG (SINGULAIR) TAB PO SCH (21:28)
[2019-01-03] VITALS (33 sets, daily range): BP systolic 88–166; BP diastolic 45–82
[2019-01-03] MEDS: NS IV 1000 ML 1,000 ML IV SCH (00:03)
[2019-01-03] MEDS: PROPOFOL DRIP (ICU) 100 ML IV SCH ×9 (01:13→20:00)
[2019-01-03] MEDS: RT-ALBUTEROL/IPRATROPIUM 3 ML (DUONEB) VIAL INH SCH ×7 (02:21→22:40)
[2019-01-03 02:52] LABS: BASOPHILS % (AUTO) 0 % (0-10); EOSINOPHILS % (AUTO) 0 % (0-10); HEMATOCRIT 37 % (35-52); HEMOGLOBIN 11.8 G/DL (11.5-16.0); LYMPHOCYTES # (AUTO) 0.7 X 10^3 (1.0-4.0); LYMPHOCYTES % (AUTO) 5 % (12-44); MEAN CORPUSCULAR HEMOGLOBIN 32 PG (25-34); MEAN CORPUSCULAR HGB CONC 32 G/DL (32-36); MEAN CORPUSCULAR VOLUME 100 FL (80-99); MEAN PLATELET VOLUME 10.3 FL (7.4-10.4); MONOCYTES # (AUTO) 0.6 X 10^3 (0.0-1.0); MONOCYTES % (AUTO) 4 % (0-12); NEUTROPHILS # (AUTO) 12.1 X 10^3 (1.8-7.8); NEUTROPHILS % (AUTO) 91 % (42-75); PLATELET COUNT 216 10^3/uL (130-400); RED CELL DISTRIBUTION WIDTH 13.4 % (10.0-14.5); WHITE BLOOD COUNT 13.4 10^3/uL (4.3-11.0)
[2019-01-03 03:06] LABS: ABG BASE EXCESS -8.7 MMOL/L (-2.5-2.5); ABG OXYGEN SATURATION 92 % (94-100); ABG PCO2 37 MMHG (35-45); ABG PO2 112 MMHG (79-93)
[2019-01-03 03:07] LABS: ABG PH 7.28 (7.37-7.43); ALLENS TEST POSITIVE; INSPIRED O2 40% VENT; PATIENT TEMP 97.3; VENTILATOR YES
[2019-01-03 03:14] LABS: CALCIUM 7.6 MG/DL (8.5-10.1); CREATININE SERUM 1.16 MG/DL (0.60-1.30); MAGNESIUM 1.6 MG/DL (1.8-2.4); POTASSIUM 4.2 MMOL/L (3.6-5.0)
[2019-01-03] MEDS ORDERED: SODIUM BICARB 8.4% 50 MEQ/50 ML VIAL ONE (04:45)
[2019-01-03] MEDS: methylPREDNISolone 40 MG/ML (Solu-MEDROL) VIAL IV SCH (05:30)
[2019-01-03] MEDS: inSUlin ASPART (NovoLOG) 1 UNIT/0.01 ML (CHARGE PER UNIT) SC SCH ×3 (05:30→17:36)
[2019-01-03] MEDS: CEFEPIME INJECTION 1,000 MG in WATER (STERILE) FOR INJECTION 10 ML IV SCH ×4 (05:30→23:23)
[2019-01-03] MEDS: NS IV 1000 ML 2,000 ML IV NR (05:49)
--- NOTE | 2019-01-03 06:14 | Pulmonary Progress Note ---
Subjective Time Seen by a Provider: 06:48 Subjective/Events-last exam Pt is sedated on vent. Family at bedside. I discussed with family extensively. Sepsis Event Evaluation Height, Weight, BMI Height: 6'0.00" Weight: 265lbs. 9.0oz. 120.529222lq; 34.8 BMI Method:Stated Focused Exam Lactate Level 01/02/19 06:30: Lactic Acid Level 2.35*H 01/02/19 09:20: Lactic Acid Level 2.48*H 01/03/19 02:45: Lactic Acid Level 4.32*H Lactic Acid Level Laboratory Tests Test 01/03/19 02:45 Lactic Acid Level 4.32 MMOL/L (0.50-2.00) *H Exam Exam Vital Signs Date Time Temp Pulse Resp B/P (MAP) Pulse Ox O2 Delivery O2 Flow Rate FiO2 01/03/19 05:00 106 166/79 (108) 97 Mechanical Ventilator 35.00 01/03/19 04:07 97.7 82 24 121/65 96 Mechanical Ventilator 35.00 01/03/19 04:00 96 Mechanical Ventilator 35 01/03/19 04:00 96 Mechanical Ventilator 35 01/03/19 04:00 103 23 148/82 (104) 96 Mechanical Ventilator 35.00 01/03/19 03:57 97.7 Mechanical Ventilator 35.00 01/03/19 03:54 92 24 95 35 01/03/19 03:00 84 24 101/54 (70) 96 Mechanical Ventilator 40.00 01/03/19 02:30 Mechanical Ventilator 40.00 01/03/19 02:28 82 24 98 40 01/03/19 02:00 81 23 106/57 (73) 98 Mechanical Ventilator 50.00 01/03/19 01:13 97.2 86 24 120/63 97 Mechanical Ventilator 45.00 01/03/19 01:00 85 01/03/19 01:00 85 24 103/55 (71) 97 Mechanical Ventilator 50.00 01/03/19 00:06 Mechanical Ventilator 45.00 01/03/19 00:05 86 24 97 45 01/03/19 00:00 95 Mechanical Ventilator 45 01/03/19 00:00 97.2 Mechanical Ventilator 45.00 01/03/19 00:00 95 Mechanical Ventilator 45 01/03/19 00:00 86 30 120/63 (82) 97 Mechanical Ventilator 45.00 01/02/19 23:00 89 23 149/72 (97) 98 Mechanical Ventilator 50.00 01/02/19 22:36 Mechanical Ventilator 50.00 01/02/19 22:36 Mechanical Ventilator 50.00 01/02/19 22:30 75 24 99 50 01/02/19 22:00 79 23 144/75 (98) 99 Mechanical Ventilator 60.00 01/02/19 21:39 97.8 80 23 144/75 98 Mechanical Ventilator 60.00 01/02/19 21:00 80 23 144/75 (98) 98 Mechanical Ventilator 60.00 01/02/19 20:20 73 24 98 60 01/02/19 20:00 96 Mechanical Ventilator 60 01/02/19 20:00 96 Mechanical Ventilator 60 01/02/19 20:00 67 23 120/59 (79) 96 Mechanical Ventilator 60.00 01/02/19 19:39 97.8 71 24 108/60 (76) 96 Mechanical Ventilator 60.00 01/02/19 19:05 Mechanical Ventilator 75.00 01/02/19 19:00 78 24 98 75 01/02/19 19:00 76 01/02/19 19:00 76 24 118/59 (78) 98 Mechanical Ventilator 80.00 01/02/19 18:26 124/61 01/02/19 18:00 75 24 134/63 (86) 99 Mechanical Ventilator 80.00 01/02/19 17:00 76 23 127/67 (87) 100 Mechanical Ventilator 80.00 01/02/19 16:00 61 23 128/77 (94) 98 Mechanical Ventilator 80.00 01/02/19 15:41 97 Mechanical Ventilator 80 01/02/19 15:37 97 Mechanical Ventilator 80 01/02/19 15:35 64 24 97 80 01/02/19 15:27 98.8 01/02/19 15:00 81 24 89/51 (64) 96 Mechanical Ventilator 80.00 01/02/19 14:25 88/58 01/02/19 14:00 76 19 89/54 (66) 97 Mechanical Ventilator 80.00 01/02/19 13:16 82 01/02/19 13:10 70 19 95 100 01/02/19 13:00 62 21 90 Mechanical Ventilator 100.00 01/02/19 12:00 79 15 129/67 (87) 99 Mechanical Ventilator 100.00 01/02/19 11:32 130/50 01/02/19 11:30 Mechanical Ventilator 100 01/02/19 11:19 75 16 98 100 01/02/19 11:05 97 NIV Bilevel 40 01/02/19 11:00 99.7 01/02/19 11:00 80 10 132/100 (111) 99 Nasal Cannula 4.00 01/02/19 10:24 80 19 99 40.00 01/02/19 10:00 85 17 139/74 (95) 96 Nasal Cannula 4.00 01/02/19 09:00 90 11 126/69 (88) 99 Nasal Cannula 4.00 01/02/19 08:54 95 Nasal Cannula 4.00 01/02/19 08:36 93 Nasal Cannula 4.00 01/02/19 08:00 Nasal Cannula 4.00 01/02/19 08:00 88 25 134/79 (97) 96 Nasal Cannula 4.00 01/02/19 07:42 99.2 01/02/19 07:00 81 12 131/100 (110) 92 Nasal Cannula 4.00 01/02/19 07:00 72 I & O 01/03/19 07:00 Intake Total 7556.5 ml Output Total 1710 ml Balance 5846.5 ml Height & Weight Height: 6'0.00" Weight: 265lbs. 9.0oz. 120.687242my; 34.8 BMI Method:Stated General Appearance: No Apparent Distress, WD/WN, Anxious, Chronically ill, Other (pt sedated on vent) HEENT: Normal ENT Inspection, Moist Mucous Membranes Neck: Full Range of Motion, Normal Inspection Respiratory: Accessory Muscle Use, Decreased Breath Sounds, Respiratory Distress Cardiovascular: Regular Rate, Rhythm, No Edema, Normal Peripheral Pulses Capillary Refill: Less Than 3 Seconds Gastrointestinal: normal bowel sounds, non tender, soft, no organomegaly, no pulsatile mass Extremity: Normal Capillary Refill, Normal Inspection, Pedal Edema Skin: Normal Color, Warm/Dry Results Lab Laboratory Tests 01/01/19 16:59 01/02/19 02:00 01/02/19 06:30 01/03/19 02:45 Assessment/Plan Assessment/Plan Acute respiratory failure -- much worse -Continue ventilator care -Propofol, Fentanyl CP with NSTEMI and EKG changes -Dr. Espinoza-- I agree pt needs cardiac cath -Cardiology following -Nitro was given in ED however made pt nauseated and did not improve pain -Morphine CT scan shows possible PE -- I am not convinced this is PE -Lovenox was started -Bilateral dopplers -- neg Severe sepsis secondary to pneumonia -Pt is on severe sepsis protocol -Reilly culture, check UA -MRSA swab -Start Rocephin Metabolic lactic acidosis -Lactic acid worsening. Repeat in 2hrs if still worsening CT abd/pelvis -IVF -Monitor Hyperkalemia -Repeat labs with mg, and phos COPDAE -Start Solumedrol IV Q 6 -SVNs -Singulair, Claritin Hx of COPD with persistent tobacco use -education -oxygen -monitor Probable JAC -Out pt testing JOSE LUIS MONTOYA DO January 03, 2019 06:14
[2019-01-03] MEDS ORDERED: SODIUM PHOSPHATE INJ 30 MM in NS (IVPB) 250 ML IV ONE (06:15)
[2019-01-03] MEDS ORDERED: LACTATED RINGERS 1,000 ML IV ONE ×2 (06:24→07:00)
[2019-01-03] MEDS: LACTATED RINGERS 1,000 ML IV SCH ×3 (06:42→18:09)
[2019-01-03] MEDS: fentaNYL INJECTION 1,250 MCG in NS (IVPB) 250 ML IV SCH ×2 (07:33→21:26)
--- NOTE | 2019-01-03 07:34 | NUR ---
50ML CADD PUMP FENTANYL WASTED W/ HELEN PAN.
[2019-01-03] MEDS: PANTOPRAZOLE 40 MG (PROTONIX) VIAL IV SCH (07:46)
[2019-01-03] MEDS: MAGNESIUM 1 GM/100 ML IVPB 100 ML IV SCH (07:46)
[2019-01-03] MEDS: LORATADINE (CLARITIN) 10 MG TAB PO SCH (07:47)
[2019-01-03] MEDS: ASPIRIN E.C. 81 MG (ECOTRIN) TAB PO SCH (07:47)
[2019-01-03] MEDS: meTOproloL SUCCINATE 50 MG (TOPROL XL) TAB PO SCH (07:47)
[2019-01-03] MEDS: lisINopril 5 MG (PRINIVIL) TABLET PO SCH (07:47)
[2019-01-03] MEDS: TICAGRELOR 90 MG TABLET (BRILINTA) PO SCH ×2 (07:47→20:00)
--- NOTE | 2019-01-03 07:57 | Diagnostic Imaging Report ---
EXAM: Portable erect AP chest at 3:38 a.m. INDICATION: Respiratory failure FINDINGS: The heart is enlarged but similar in size to the prior exam of 01/02/2019. However, the central pulmonary vascularity and the interstitial densities in both lungs do seem less prominent than noted on the previous study. The band of atelectasis/infiltrate in the right perihilar region noted on the prior study has also diminished in size. No new parenchymal abnormality has developed. The mediastinum is not widened. The osseous structures are intact. In the interval since the prior exam, the right-sided PICC line has been retracted and the tip now overlies the distal superior vena cava. The other supportive tubes and lines seem to be in good position. IMPRESSION: 1. The appearance of the chest has improved as there is less pulmonary congestion. A follow study would be recommended for continued evaluation. 2. The right-sided PICC line tip has been retracted and the tip now overlies the distal superior vena cava. Dictated by: Dictated on workstation # [id number]
[2019-01-03] MEDS ORDERED: meTOprolol TARTRATE 25 MG (LOPRESSOR) TABLET PO SCH (09:00)
[2019-01-03] MEDS ORDERED: ASPIRIN E.C. 81 MG (ECOTRIN) TAB PO SCH (09:00)
--- NOTE | 2019-01-03 09:13 | NUR ---
PULMOCARE TF STARTED AT 15ML/HR PER DR ORDERS.
--- NOTE | 2019-01-03 10:40 | NUR ---
BP TRENDING BACK DOWN, CURRENTLY 87/46. DR MONTOYA INFORMED. NEW ORDERS RECEIVED TO RESTART LEVOPHED AND START SOLUCORTEF 100MG Q8 HRS. SOLUMEDROL D/C'D PER
[2019-01-03] MEDS: VANCOMYCIN 1,750 MG/NS 500 ML IVPB IV SCH ×2 (12:22)
--- NOTE | 2019-01-03 12:22 | Progress Note-Hospitalist ---
Subjective HPI/CC On Admission Date Seen by Provider: January 03, 2019 Time Seen by Provider: 09:30 Patient sedated on vent appears to be in no acute distress. Skin coloration looks good which the family status and improvement from yesterday Focused Exam Lactate Level 01/02/19 09:20: Lactic Acid Level 2.48*H 01/03/19 02:45: Lactic Acid Level 4.32*H 01/03/19 06:35: Lactic Acid Level 5.40*H Objective Exam Vital Signs Vital Signs Date Time Temp Pulse Resp B/P (MAP) Pulse Ox O2 Delivery O2 Flow Rate FiO2 01/03/19 12:00 91 115/60 (78) 95 Mechanical Ventilator 35.00 01/03/19 11:46 35 01/03/19 11:43 24 01/03/19 11:30 98.8 Capillary Refill : Less Than 3 Seconds General Appearance: No Apparent Distress, WD/WN, Obese, Other (pt sedated on vent) HEENT: Moist Mucous Membranes Neck: Normal Inspection Respiratory: No Respiratory Distress, Accessory Muscle Use, Other (Chest surprisingly clear a few diminished breath sounds in both bases no wheezing or rhonchi appreciated.) Cardiovascular: Regular Rate, Rhythm, No Edema, Normal Peripheral Pulses Gastrointestinal: Normal Bowel Sounds, Non Tender, Soft Extremity: Normal Capillary Refill, Normal Inspection, Pedal Edema (1+ edema noted in both upper and lower extremities.) Skin: Normal Color, Warm/Dry Results/Procedures Lab Laboratory Tests 01/03/19 02:45 Patient resulted labs reviewed. Assessment/Plan Assessment and Plan Assess & Plan/Chief Complaint Acute respiratory failure -improved from yesterday ABGs improving patient appears to be in less distress. -Continue ventilator care -Propofol, Fentanyl CP with NSTEMI and EKG changes -Dr. Espinoza-- apparently placed to obtuse marginal stents with disease in other arteries son noted report pending. This is according to nursing staff. -Cardiology following -Nitro was given in ED however made pt nauseated and did not improve pain -Morphine CT scan shows possible PE -- I am not convinced this is PE -Lovenox was started -Bilateral dopplers -- neg Severe sepsis secondary to pneumonia -Pt is on severe sepsis protocol -Reilly culture, check UA -MRSA swab -Start Rocephin Metabolic lactic acidosis -Lactic acid worsening. Repeat in 2hrs if still worsening CT abd/pelvis -IVF -Monitor Hyperkalemia -Repeat labs with mg, and phos COPDAE -Start Solumedrol IV Q 6 -SVNs -Singulair, Claritin Hx of COPD with persistent tobacco use -education -oxygen -monitor Probable JAC -Out pt testing Critical Care Critically Ill Patient Clinical Quality Measures AMI/AHF: ASA po Prior to arrival: No DVT/VTE Risk/Contraindication: Risk Factor Score Per Nursin RFS Level Per Nursing on Admit: 4+=Very High EVITA JOSEPH MD January 03, 2019 12:22
--- NOTE | 2019-01-03 13:14 | Cardiology Progress Note ---
Cardiology SOAP Progress Note Subjective: Intubated/ventilated. Objective: I&O/Vital Signs 01/03/19 01/03/19 01/03/19 01/03/19 01:13 02:00 02:28 02:30 Temp 97.2 Pulse 86 81 82 Resp 24 23 24 B/P (MAP) 120/63 106/57 (73) Pulse Ox 97 98 98 O2 Delivery Mechanical Ventilator Mechanical Ventilator Mechanical Ventilator O2 Flow Rate 45.00 50.00 40.00 FiO2 40 01/03/19 01/03/19 01/03/19 01/03/19 03:00 03:54 03:57 04:00 Temp 97.7 Pulse 84 92 103 Resp 24 23 B/P (MAP) 101/54 (70) 148/82 (104) Pulse Ox 96 95 96 O2 Delivery Mechanical Ventilator Mechanical Ventilator Mechanical Ventilator O2 Flow Rate 40.00 35.00 35.00 FiO2 35 01/03/19 01/03/19 01/03/19 01/03/19 04:00 04:00 04:07 05:00 Temp 97.7 Pulse 82 106 Resp 24 B/P (MAP) 121/65 166/79 (108) Pulse Ox 96 96 96 97 O2 Delivery Mechanical Ventilator Mechanical Ventilator Mechanical Ventilator Mechanical Ventilator O2 Flow Rate 35.00 35.00 FiO2 35 35 01/03/19 01/03/19 01/03/19 01/03/19 06:00 06:42 07:00 07:00 Temp 97.7 Pulse 102 102 99 99 Resp 24 B/P (MAP) 133/64 (87) 133/64 121/59 (79) Pulse Ox 96 96 95 O2 Delivery Mechanical Ventilator Mechanical Ventilator Mechanical Ventilator O2 Flow Rate 35.00 35.00 35.00 01/03/19 01/03/19 01/03/19 01/03/19 07:11 07:32 08:00 08:25 Temp 99.3 Pulse 98 100 Resp 20 B/P (MAP) 120/58 (78) Pulse Ox 95 94 O2 Delivery Mechanical Ventilator Mechanical Ventilator O2 Flow Rate 35.00 FiO2 40 35 01/03/19 01/03/19 01/03/19 01/03/19 08:31 08:38 09:00 10:00 Pulse 96 91 B/P (MAP) 115/55 104/53 (70) 91/48 (62) Pulse Ox 94 95 O2 Delivery Mechanical Ventilator Mechanical Ventilator Mechanical Ventilator O2 Flow Rate 35.00 35.00 FiO2 35 01/03/19 01/03/19 01/03/19 01/03/19 11:00 11:08 11:30 11:43 Temp 98.8 Pulse 90 90 Resp 24 B/P (MAP) 147/71 (96) 147/71 Pulse Ox 95 95 O2 Delivery Mechanical Ventilator O2 Flow Rate 35.00 FiO2 40 01/03/19 01/03/19 01/03/19 01/03/19 11:46 12:00 12:27 13:00 Pulse 91 90 B/P (MAP) 115/60 (78) Pulse Ox 95 O2 Delivery Mechanical Ventilator Mechanical Ventilator Mechanical Ventilator O2 Flow Rate 35.00 FiO2 35 35 01/03/19 00:00 Intake Total 3346.5 ml Output Total 925 ml Balance 2421.5 ml Weight (Pounds): 265 Weight (Ounces): 9.0 Weight (Calculated Kilograms): 120.885031 Constitutional: appears stated age, apparent distress, well-developed, well- nourished, other (Intubated/ventilated.) Respiratory: No accessory muscle use, No respiratory distress, No chest tender , No chest expansion is symmetric; chest is bilaterally symmetric; No lungs clear to percussion; lungs clear to auscultation; No crackles, No rhonchi, No rales, No stridor, No wheezing, No pleural rub, No other Cardiovascular: regular rate-rhythm; No irregularly irregular, No extra beats, No parasternal heave is noted, No JVD, No edema, No bradycardia, No tachycardia , No point of maximal impulse, No cardiac thrills are palpable; S1 and S2; No gallop/S3, No gallop/S4, No diastolic murmur, No systolic murmur, No friction rub, No click, No other Gastrointestional: No tender, No soft, No round, No distended, No pulsatile mass, No organomegaly, No guarding, No rebound, No tenderness, No hernia, No mass, No audible bowel sounds, No abnormal bowel sounds, No abdominal bruits, No spleenomegaly, No other Extremities: No normal range of motion, No non-tender, No normal inspection, No pedal edema, No calf tenderness, No normal capillary refill, No pelvis stable , No calf tenderness, No inflammation, No pedal edema, No slow capillary refill , No swelling, No other, No abrasion, No clubbing, No cyanosis, No ecchymosis, No laceration, No no lower extremity edema bilateral, No significant edema, No tenderness, No wound Neurologic/Psychiatric: other (Intubated/ventilated.) Skin: No normal color, No warm/dry, No cyanosis, No cool, No diaphoresis, No damp, No ecchymosis, No jaundice, No mottled, No pallor, No rash, No tattoos/ piercings, No ulcerations, No rash on exposed areas, No ulcerations on exposed areas, No other Results/Procedures: Labs Laboratory Tests 01/02/19 13:50: Activated Partial Thromboplast Time 135*H, Triglycerides Level 122 01/02/19 14:27: Blood Gas Puncture Site LT RADIAL, Blood Gas Patient Temperature 99.8, Arterial Blood pH 7.19*L, Arterial Blood Partial Pressure CO2 59H, Arterial Blood Partial Pressure O2 90, Arterial Blood HCO3 21L, Arterial Blood Total CO2 23.0, Arterial Blood Oxygen Saturation 96, Arterial Blood Base Excess -5.7L, Denny Test YES-POS, Blood Gas Ventilator Setting YES, Blood Gas Inspired Oxygen 80% 01/02/19 15:50: Activated Partial Thromboplast Time 55H 01/02/19 16:15: Blood Gas Puncture Site LEFT RADIAL, Blood Gas Patient Temperature 99.3, Arterial Blood pH 7.18*L, Arterial Blood Partial Pressure CO2 53H, Arterial Blood Partial Pressure O2 95H, Arterial Blood HCO3 19L, Arterial Blood Total CO2 20.6L, Arterial Blood Oxygen Saturation 97, Arterial Blood Base Excess -7.9L , Denny Test POSITIVE, Blood Gas Ventilator Setting YES, Blood Gas Inspired Oxygen 80% 01/02/19 17:29: Glucometer 325H 01/02/19 19:05: Blood Gas Puncture Site RIGHT RADIAL, Blood Gas Patient Temperature 99.1, Arterial Blood pH 7.23*L, Arterial Blood Partial Pressure CO2 43, Arterial Blood Partial Pressure O2 122H, Arterial Blood HCO3 17*L, Arterial Blood Total CO2 18.6L, Arterial Blood Oxygen Saturation 99, Arterial Blood Base Excess -8.8L , Denny Test POSITIVE, Blood Gas Ventilator Setting YES, Blood Gas Inspired Oxygen 80% 01/02/19 23:43: Glucometer 318H 01/03/19 02:45: White Blood Count 13.4H, Red Blood Count 3.69L, Hemoglobin 11.8, Hematocrit 37, Mean Corpuscular Volume 100H, Mean Corpuscular Hemoglobin 32, Mean Corpuscular Hemoglobin Concent 32, Red Cell Distribution Width 13.4, Platelet Count 216, Mean Platelet Volume 10.3, Neutrophils (%) (Auto) 91H, Lymphocytes (%) (Auto) 5L , Monocytes (%) (Auto) 4, Eosinophils (%) (Auto) 0, Basophils (%) (Auto) 0, Neutrophils # (Auto) 12.1H, Lymphocytes # (Auto) 0.7L, Monocytes # (Auto) 0.6, Eosinophils # (Auto) 0.0, Basophils # (Auto) 0.0, Sodium Level 137, Potassium Level 4.2, Chloride Level 111H, Carbon Dioxide Level 14L, Anion Gap 12, Blood Urea Nitrogen 19H, Creatinine 1.16, Estimat Glomerular Filtration Rate 47, BUN/ Creatinine Ratio 16, Glucose Level 301H, Lactic Acid Level 4.32*H, Calcium Level 7.6L, Phosphorus Level 2.0L, Magnesium Level 1.6L, Troponin I 15.861*H 01/03/19 03:02: Blood Gas Puncture Site LEFT RADIAL, Blood Gas Patient Temperature 97.3, Arterial Blood pH 7.28*L, Arterial Blood Partial Pressure CO2 37, Arterial Blood Partial Pressure O2 112H, Arterial Blood HCO3 17*L, Arterial Blood Total CO2 18.0L, Arterial Blood Oxygen Saturation 92L, Arterial Blood Base Excess - 8.7L, Denny Test POSITIVE, Blood Gas Ventilator Setting YES, Blood Gas Inspired Oxygen 40% VENT 01/03/19 06:35: Lactic Acid Level 5.40*H 01/03/19 11:37: Glucometer 239H Microbiology 01/02/19 Gram Stain - Final, Resulted 01/02/19 Sputum Culture, Resulted Pending A/P: Assessment/Dx: NSTEMI, refractory to medical therapy. Acute respiratory failure, Active smoking, Diabetes, COPD Plan: Non-STEMI refractory to medical therapy, Coronary angiography today, aspirin, Brilinta. 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 Proximal OM artery had severe stenosis with haziness and CHRIS 2 flow which is likely the culprit artery. 2 drug-eluting stents placed. LAD and RCA to be addressed later when the patient is much more stable. The patient has sepsis with leukocytosis, respiratory acidosis, lactic acidosis , mild fever. Source is likely right lower lobe pneumonia. However the patient is having non-STEMI with continuous chest pain refractory to medical therapy with significantly elevated troponin. Therefore coronary angiography is emergent/urgent. I have discussed with Dr. Riggs and he agrees with the plan. Acute respiratory failure, intubated/ventilated. Sepsis, likely right lower lobe pneumonia. Broad-spectrum antibiotic. On cefepime and vancomycin. Active smoking, strongly recommended to quit on admission. Diabetes, deferred to the primary team. Critically ill patient. Thank you for your consultation. Please call me if you have any questions. Bety Mercado MD, FACP, FACC, FSCAI, FHRS, CCDS Interventional Cardiology Cardiac Electrophysiology Vascular Medicine and Endovascular Interventions Focused Exam Lactate Level 01/02/19 09:20: Lactic Acid Level 2.48*H 01/03/19 02:45: Lactic Acid Level 4.32*H 01/03/19 06:35: Lactic Acid Level 5.40*H Clinical Quality Measures AMI/AHF: ASA po Prior to arrival: Jc Cheatham MD January 03, 2019 13:14
[2019-01-03] MEDS: HYDROCORTISONE 100 MG/2 ML (Solu-CORTEF) VIAL IV SCH ×2 (13:26→23:23)
[2019-01-03 15:35] LABS: ALANINE AMINOTRANSFERASE 35 U/L (0-55); ALBUMIN 2.9 GM/DL (3.2-4.5); ALKALINE PHOSPHATASE 50 U/L (40-136); BILIRUBIN,TOTAL 0.2 MG/DL (0.1-1.0); BUN/CREATININE RATIO 22; CALCIUM 7.8 MG/DL (8.5-10.1); CARBON DIOXIDE 17 MMOL/L (21-32); CHLORIDE 110 MMOL/L (98-107); CREATININE SERUM 0.92 MG/DL (0.60-1.30); GFR ESTIMATED > 60; GLUCOSE 224 MG/DL (70-105); POTASSIUM 3.8 MMOL/L (3.6-5.0); SODIUM 139 MMOL/L (135-145); TOTAL PROTEIN 4.7 GM/DL (6.4-8.2)
[2019-01-03] MEDS: ENOXAPARIN 40 MG/0.4 ML (LOVENOX) SYR SQ SCH (17:36)
[2019-01-03] MEDS: MONTELUKAST 10 MG (SINGULAIR) TAB PO SCH (20:00)
[2019-01-03] MEDS: ATORVASTATIN 80 MG (LIPITOR) TABLET PO SCH (20:00)
[2019-01-04] VITALS (33 sets, daily range): BP systolic 89–153; BP diastolic 47–91
[2019-01-04] MEDS: inSUlin ASPART (NovoLOG) 1 UNIT/0.01 ML (CHARGE PER UNIT) SC SCH ×5 (00:12→23:24)
[2019-01-04] MEDS: PROPOFOL DRIP (ICU) 100 ML IV SCH ×9 (00:30→21:00)
[2019-01-04] MEDS: LACTATED RINGERS 1,000 ML IV SCH ×4 (01:04→19:42)
[2019-01-04] MEDS: RT-ALBUTEROL/IPRATROPIUM 3 ML (DUONEB) VIAL INH SCH ×6 (02:26→22:30)
[2019-01-04 03:17] LABS: BASOPHILS % (AUTO) 0 % (0-10); EOSINOPHILS % (AUTO) 0 % (0-10); HEMATOCRIT 33 % (35-52); HEMOGLOBIN 10.8 G/DL (11.5-16.0); LYMPHOCYTES # (AUTO) 0.8 X 10^3 (1.0-4.0); LYMPHOCYTES % (AUTO) 4 % (12-44); MEAN CORPUSCULAR HEMOGLOBIN 32 PG (25-34); MEAN CORPUSCULAR HGB CONC 33 G/DL (32-36); MEAN CORPUSCULAR VOLUME 99 FL (80-99); MEAN PLATELET VOLUME 10.2 FL (7.4-10.4); MONOCYTES # (AUTO) 1.8 X 10^3 (0.0-1.0); MONOCYTES % (AUTO) 9 % (0-12); NEUTROPHILS # (AUTO) 17.3 X 10^3 (1.8-7.8); NEUTROPHILS % (AUTO) 87 % (42-75); PLATELET COUNT 202 10^3/uL (130-400); RED CELL DISTRIBUTION WIDTH 13.9 % (10.0-14.5)
[2019-01-04 03:18] LABS: ABG BASE EXCESS -3.1 MMOL/L (-2.5-2.5); ABG OXYGEN SATURATION 96 % (94-100); ABG PCO2 35 MMHG (35-45); ABG PH 7.39 (7.37-7.43); ABG PO2 73 MMHG (79-93); ABG TCO2 22.3 MMOL/L (21.0-31.0); ALLENS TEST POSITIVE; INSPIRED O2 35% VENT; PATIENT TEMP 97.5; VENTILATOR YES
[2019-01-04 04:12] LABS: BUN/CREATININE RATIO 22; CALCIUM 8.1 MG/DL (8.5-10.1); CARBON DIOXIDE 18 MMOL/L (21-32); CHLORIDE 111 MMOL/L (98-107); GFR ESTIMATED > 60; GLUCOSE 149 MG/DL (70-105); MAGNESIUM 1.9 MG/DL (1.8-2.4); SODIUM 140 MMOL/L (135-145)
--- NOTE | 2019-01-04 05:13 | Pulmonary Progress Note ---
Subjective Time Seen by a Provider: 05:18 Subjective/Events-last exam Pt is sedated on vent Sepsis Event Evaluation Height, Weight, BMI Height: 6'0.00" Weight: 265lbs. 9.0oz. 120.985723fv; 34.8 BMI Method:Stated Focused Exam Lactate Level 01/03/19 06:35: Lactic Acid Level 5.40*H 01/03/19 15:05: Lactic Acid Level 3.15*H 01/03/19 17:29: Lactic Acid Level 3.18*H Exam Exam Vital Signs Date Time Temp Pulse Resp B/P (MAP) Pulse Ox O2 Delivery O2 Flow Rate FiO2 01/04/19 04:35 88 24 95 35 01/04/19 03:54 98.0 93 23 100/51 93 Mechanical Ventilator 35.00 01/04/19 03:00 93 23 100/51 (67) 93 Mechanical Ventilator 35.00 01/04/19 02:33 98.0 93 24 130/65 94 Mechanical Ventilator 35.00 01/04/19 02:27 93 24 94 35 01/04/19 02:00 96 23 107/54 (71) 94 Mechanical Ventilator 35.00 01/04/19 01:00 97 24 108/53 (71) 94 Mechanical Ventilator 35.00 01/04/19 01:00 96 01/04/19 00:32 87 24 94 35 01/04/19 00:30 98.0 87 24 91/48 94 Mechanical Ventilator 35.00 01/04/19 00:00 92 14 89/47 (61) 94 Mechanical Ventilator 35.00 01/04/19 00:00 Mechanical Ventilator 35 01/04/19 00:00 Mechanical Ventilator 35 01/03/19 23:38 98.0 01/03/19 23:00 100 25 116/56 (76) 95 Mechanical Ventilator 35.00 01/03/19 22:40 96 24 94 35 01/03/19 22:00 86 24 91/47 (62) 94 Mechanical Ventilator 35.00 01/03/19 21:00 89 24 102/48 (66) 95 Mechanical Ventilator 35.00 01/03/19 20:37 90 24 95 35 01/03/19 20:00 92 23 105/47 (66) 95 Mechanical Ventilator 35.00 01/03/19 20:00 Mechanical Ventilator 35 5/11/19 20:00 98.0 87 24 91/48 94 Mechanical Ventilator 35.00 01/03/19 19:59 Mechanical Ventilator 35 01/03/19 19:22 98.1 92 24 98/45 (62) 94 Mechanical Ventilator 35.00 01/03/19 19:00 93 01/03/19 18:24 85 24 95 35 01/03/19 18:09 102/51 01/03/19 18:00 85 24 102/51 (68) 95 Mechanical Ventilator 35.00 01/03/19 17:00 87 23 98/50 (66) 95 Mechanical Ventilator 35.00 01/03/19 16:00 89 18 88/45 (59) 94 Mechanical Ventilator 35.00 01/03/19 15:59 97/52 01/03/19 15:11 Mechanical Ventilator 35 01/03/19 15:10 99.1 01/03/19 15:10 Mechanical Ventilator 35 01/03/19 15:00 93 23 94/49 (64) 94 Mechanical Ventilator 35.00 01/03/19 14:37 96 24 95 40 01/03/19 14:00 88 23 115/60 (78) 94 Mechanical Ventilator 35.00 01/03/19 13:53 115/60 01/03/19 13:00 90 108/58 (75) 95 Mechanical Ventilator 35.00 01/03/19 13:00 90 01/03/19 12:27 Mechanical Ventilator 35 01/03/19 12:00 91 115/60 (78) 95 Mechanical Ventilator 35.00 01/03/19 11:46 Mechanical Ventilator 35 01/03/19 11:43 90 24 95 40 01/03/19 11:30 98.8 01/03/19 11:08 147/71 01/03/19 11:00 90 147/71 (96) 95 Mechanical Ventilator 35.00 01/03/19 10:00 91 91/48 (62) 95 Mechanical Ventilator 35.00 01/03/19 09:00 96 104/53 (70) 94 Mechanical Ventilator 35.00 01/03/19 08:38 115/55 01/03/19 08:31 Mechanical Ventilator 35 01/03/19 08:25 Mechanical Ventilator 35 01/03/19 08:00 100 120/58 (78) 94 Mechanical Ventilator 35.00 01/03/19 07:32 99.3 01/03/19 07:11 98 20 95 40 01/03/19 07:00 99 121/59 (79) 95 Mechanical Ventilator 35.00 01/03/19 07:00 99 01/03/19 06:42 97.7 102 24 133/64 96 Mechanical Ventilator 35.00 01/03/19 06:00 102 133/64 (87) 96 Mechanical Ventilator 35.00 I & O 01/04/19 07:00 Intake Total 4769.5 ml Output Total 900 ml Balance 3869.5 ml Height & Weight Height: 6'0.00" Weight: 265lbs. 9.0oz. 120.108615ct; 34.8 BMI Method:Stated General Appearance: No Apparent Distress, WD/WN, Anxious, Chronically ill, Other (pt sedated on vent) HEENT: Normal ENT Inspection, Moist Mucous Membranes Neck: Full Range of Motion, Normal Inspection Respiratory: Accessory Muscle Use, Decreased Breath Sounds, Respiratory Distress Cardiovascular: Regular Rate, Rhythm, No Edema, Normal Peripheral Pulses Capillary Refill: Less Than 3 Seconds Gastrointestinal: normal bowel sounds, non tender, soft, no organomegaly, no pulsatile mass Extremity: Normal Capillary Refill, Normal Inspection, Pedal Edema Skin: Normal Color, Warm/Dry Results Lab Laboratory Tests 01/02/19 06:30 01/03/19 02:45 01/03/19 15:05 01/04/19 03:00 Assessment/Plan Assessment/Plan Acute respiratory failure -- much worse -Continue ventilator care -Propofol, Fentanyl -TF started yesterday CP with NSTEMI and EKG changes s/p cath -Cardiology following -Morphine CT scan shows possible PE -- I am not convinced this is PE -Lovenox was started -Bilateral dopplers -- neg Severe sepsis secondary to pneumonia -Pt is on severe sepsis protocol -Reilly culture, check UA -MRSA swab -Start Rocephin Metabolic lactic acidosis -Lactic acid worsening. Repeat in 2hrs if still worsening CT abd/pelvis -IVF -Monitor COPDAE -SoluCortef decrease to 100 to IV q12 -SVNs -Singulair, Claritin Hx of COPD with persistent tobacco use -education -oxygen -monitor Probable JAC -Out pt testing JOSE LUIS MONTOYA DO January 04, 2019 05:13
[2019-01-04] MEDS ORDERED: DEXMEDETOMIDINE INJECTION 200 MCG in NS (IVPB) 50 ML IV SCH (05:15)
[2019-01-04] MEDS: CEFEPIME INJECTION 1,000 MG in WATER (STERILE) FOR INJECTION 10 ML IV SCH ×4 (05:59→23:22)
[2019-01-04] MEDS: lisINopril 5 MG (PRINIVIL) TABLET PO SCH (07:13)
[2019-01-04] MEDS: meTOproloL SUCCINATE 50 MG (TOPROL XL) TAB PO SCH (07:13)
[2019-01-04] MEDS ORDERED: LACTATED RINGERS 1,000 ML IV ONE (07:15)
[2019-01-04] MEDS: LORATADINE (CLARITIN) 10 MG TAB PO SCH (07:26)
[2019-01-04] MEDS: HYDROCORTISONE 100 MG/2 ML (Solu-CORTEF) VIAL IV SCH ×2 (07:26→20:15)
[2019-01-04] MEDS: TICAGRELOR 90 MG TABLET (BRILINTA) PO SCH ×2 (07:26→20:15)
[2019-01-04] MEDS: PANTOPRAZOLE 40 MG (PROTONIX) VIAL IV SCH (07:26)
[2019-01-04] MEDS: ASPIRIN E.C. 81 MG (ECOTRIN) TAB PO SCH (07:26)
[2019-01-04] MEDS: fentaNYL INJECTION 1,250 MCG in NS (IVPB) 250 ML IV SCH ×2 (07:50→21:01)
--- NOTE | 2019-01-04 07:52 | NUR ---
40ML CADD PUMP FENT WASTED W/ JOCELINE PAN.
--- NOTE | 2019-01-04 08:20 | Diagnostic Imaging Report ---
Indication: Dyspnea, followup sepsis. Comparison: 01/03/2019. Discussion: Single portable upright view of the chest was obtained. Endotracheal tube, enteric tube, and right upper extremity PICC line are stable and in good position. Normal heart size. Nonspecific bilateral infiltrates are stable, right greater than left. No pleural fluid or pneumothorax. No osseous abnormality. Impression: 1. Stable chest. Dictated by: Dictated on workstation # [id number]
[2019-01-04] MEDS: DEXMEDETOMIDINE INJECTION 1,000 MCG in NS (IVPB) 250 ML IV SCH ×2 (11:26→22:57)
[2019-01-04] MEDS ORDERED: TROUGH ORDER-PHARMACY XX NR (12:00)
[2019-01-04] MEDS: VANCOMYCIN 1,750 MG/NS 500 ML IVPB IV SCH ×2 (12:47)
--- NOTE | 2019-01-04 13:32 | Progress Note-Hospitalist ---
Subjective HPI/CC On Admission Date Seen by Provider: January 04, 2019 Time Seen by Provider: 11:30 Patient sedated on vent appears to be in no acute distress. Skin coloration looks good which the family status and improvement from yesterday Subjective/Events-last exam Patient sedated on the vent appears to be in no acute distress. Focused Exam Lactate Level 01/03/19 17:29: Lactic Acid Level 3.18*H 01/04/19 06:15: Lactic Acid Level 3.44*H 01/04/19 09:00: Lactic Acid Level 2.07*H Objective Exam Vital Signs Vital Signs Date Time Temp Pulse Resp B/P (MAP) Pulse Ox O2 Delivery O2 Flow Rate FiO2 01/04/19 12:10 147/75 01/04/19 11:48 Mechanical Ventilator 35 01/04/19 11:42 97.8 01/04/19 10:28 81 24 95 01/04/19 10:00 35.00 Capillary Refill : Less Than 3 Seconds General Appearance: No Apparent Distress, WD/WN, Anxious, Chronically ill, Other (pt sedated on vent) HEENT: Normal ENT Inspection, Moist Mucous Membranes Neck: Full Range of Motion, Normal Inspection Respiratory: Accessory Muscle Use, Decreased Breath Sounds, Respiratory Distress Cardiovascular: Regular Rate, Rhythm, No Edema, Normal Peripheral Pulses Gastrointestinal: Normal Bowel Sounds, Non Tender, Soft Extremity: Normal Capillary Refill, Normal Inspection, Pedal Edema Skin: Normal Color, Warm/Dry Results/Procedures Lab Laboratory Tests 01/03/19 15:05 01/04/19 03:00 Patient resulted labs reviewed. Assessment/Plan Assessment and Plan Assess & Plan/Chief Complaint Acute respiratory failure -improved from yesterday ABGs pain to improve patient and a 35 percent FiO2. If improvement continues suspect patiently ready for lightening of sedation and pressure support trials tomorrow. Defer to Dr. Riggs. -Continue ventilator care -Propofol, Fentanyl CP with NSTEMI and EKG changes -Dr. Espinoza-- apparently placed to obtuse marginal stents with disease in other arteries son noted report pending. This is according to nursing staff. -Cardiology following -Nitro was given in ED however made pt nauseated and did not improve pain -Morphine CT scan shows possible PE -- I am not convinced this is PE -Lovenox was started -Bilateral dopplers -- neg Severe sepsis secondary to pneumonia improving lactate levels returning to normal with stable vital signs. -Pt is on severe sepsis protocol -Reilly culture, check UA -MRSA swab -Start Rocephin Metabolic lactic acidosis -Lactic acid worsening. Repeat in 2hrs if still worsening CT abd/pelvis -IVF -Monitor Hyperkalemia -Repeat labs with mg, and phos COPDAE -Start Solumedrol IV Q 6 -SVNs -Singulair, Claritin Hx of COPD with persistent tobacco use -education -oxygen -monitor Probable JAC -Out pt testing Critical Care Critically Ill Patient Clinical Quality Measures AMI/AHF: ASA po Prior to arrival: No DVT/VTE Risk/Contraindication: Risk Factor Score Per Nursin RFS Level Per Nursing on Admit: 4+=Very High EVITA JOSEPH MD January 04, 2019 13:32
[2019-01-04] MEDS: ENOXAPARIN 40 MG/0.4 ML (LOVENOX) SYR SQ SCH (17:09)
--- NOTE | 2019-01-04 19:17 | Cardiology Progress Note ---
Cardiology SOAP Progress Note Subjective: Intubated/ventilated Objective: I&O/Vital Signs 01/04/19 01/04/19 01/04/19 01/04/19 07:27 08:00 08:09 08:11 Temp 96.8 Pulse 82 Resp 25 B/P (MAP) 108/55 120/63 (82) Pulse Ox 95 O2 Delivery Mechanical Ventilator Mechanical Ventilator O2 Flow Rate 35.00 FiO2 35 01/04/19 01/04/19 01/04/19 01/04/19 08:19 08:37 09:00 10:00 Pulse 84 80 81 Resp 24 23 23 B/P (MAP) 132/74 (93) 136/76 (96) Pulse Ox 95 95 95 O2 Delivery Mechanical Ventilator Mechanical Ventilator Mechanical Ventilator O2 Flow Rate 35.00 35.00 FiO2 35 35 01/04/19 01/04/19 01/04/19 01/04/19 10:08 10:28 11:00 11:42 Temp 97.8 Pulse 81 85 Resp 24 23 B/P (MAP) 136/76 139/70 (93) Pulse Ox 95 95 O2 Delivery Mechanical Ventilator O2 Flow Rate 35.00 FiO2 35 01/04/19 01/04/19 01/04/19 01/04/19 11:48 12:00 12:10 13:00 Pulse 85 83 Resp 24 24 B/P (MAP) 149/79 (102) 147/75 153/83 (106) Pulse Ox 95 O2 Delivery Mechanical Ventilator Mechanical Ventilator Mechanical Ventilator O2 Flow Rate 35.00 35.00 FiO2 35 01/04/19 01/04/19 01/04/19 01/04/19 13:00 14:00 14:08 15:00 Pulse 83 74 74 77 Resp 24 24 23 B/P (MAP) 150/84 (106) 152/81 (104) Pulse Ox 95 O2 Delivery Mechanical Ventilator Mechanical Ventilator O2 Flow Rate 35.00 35.00 FiO2 35 01/04/19 01/04/19 01/04/19 01/04/19 15:11 15:13 16:00 16:01 Temp 97.2 Pulse 76 Resp 25 B/P (MAP) 142/75 (97) 142/75 O2 Delivery Mechanical Ventilator Mechanical Ventilator O2 Flow Rate 35.00 FiO2 35 01/04/19 01/04/19 17:00 18:00 Pulse 74 74 Resp 18 22 B/P (MAP) 139/82 (101) 142/81 (101) O2 Delivery Mechanical Ventilator Mechanical Ventilator O2 Flow Rate 35.00 35.00 01/04/19 00:00 Intake Total 3210.5 ml Output Total 650 ml Balance 2560.5 ml Weight (Pounds): 289 Weight (Ounces): 9.0 Weight (Calculated Kilograms): 131.894215 Constitutional: appears stated age, apparent distress, well-developed, well- nourished, other (Intubated/ventilated.) Respiratory: No accessory muscle use, No respiratory distress, No chest tender , No chest expansion is symmetric; chest is bilaterally symmetric; No lungs clear to percussion; lungs clear to auscultation; No crackles, No rhonchi, No rales, No stridor, No wheezing, No pleural rub, No other Cardiovascular: regular rate-rhythm; No irregularly irregular, No extra beats, No parasternal heave is noted, No JVD, No edema, No bradycardia, No tachycardia , No point of maximal impulse, No cardiac thrills are palpable; S1 and S2; No gallop/S3, No gallop/S4, No diastolic murmur, No systolic murmur, No friction rub, No click, No other Gastrointestional: No tender, No soft, No round, No distended, No pulsatile mass, No organomegaly, No guarding, No rebound, No tenderness, No hernia, No mass, No audible bowel sounds, No abnormal bowel sounds, No abdominal bruits, No spleenomegaly, No other Extremities: No normal range of motion, No non-tender, No normal inspection, No pedal edema, No calf tenderness, No normal capillary refill, No pelvis stable , No calf tenderness, No inflammation, No pedal edema, No slow capillary refill , No swelling, No other, No abrasion, No clubbing, No cyanosis, No ecchymosis, No laceration, No no lower extremity edema bilateral, No significant edema, No tenderness, No wound Neurologic/Psychiatric: other (Intubated/ventilated.) Skin: No normal color, No warm/dry, No cyanosis, No cool, No diaphoresis, No damp, No ecchymosis, No jaundice, No mottled, No pallor, No rash, No tattoos/ piercings, No ulcerations, No rash on exposed areas, No ulcerations on exposed areas, No other Results/Procedures: Labs Laboratory Tests 01/03/19 23:33: Glucometer 154H 01/04/19 03:00: White Blood Count 20.0H, Red Blood Count 3.35L, Hemoglobin 10.8L, Hematocrit 33L , Mean Corpuscular Volume 99, Mean Corpuscular Hemoglobin 32, Mean Corpuscular Hemoglobin Concent 33, Red Cell Distribution Width 13.9, Platelet Count 202, Mean Platelet Volume 10.2, Neutrophils (%) (Auto) 87H, Lymphocytes (%) (Auto) 4L , Monocytes (%) (Auto) 9, Eosinophils (%) (Auto) 0, Basophils (%) (Auto) 0, Neutrophils # (Auto) 17.3H, Lymphocytes # (Auto) 0.8L, Monocytes # (Auto) 1.8H, Eosinophils # (Auto) 0.0, Basophils # (Auto) 0.0, Blood Gas Puncture Site LEFT RADIAL, Blood Gas Patient Temperature 97.5, Arterial Blood pH 7.39, Arterial Blood Partial Pressure CO2 35, Arterial Blood Partial Pressure O2 73L, Arterial Blood HCO3 21L, Arterial Blood Total CO2 22.3, Arterial Blood Oxygen Saturation 96, Arterial Blood Base Excess -3.1L, Denny Test POSITIVE, Blood Gas Ventilator Setting YES, Blood Gas Inspired Oxygen 35% VENT, Sodium Level 140, Potassium Level 4.0, Chloride Level 111H, Carbon Dioxide Level 18L, Anion Gap 11, Blood Urea Nitrogen 20H, Creatinine 0.90, Estimat Glomerular Filtration Rate > 60, BUN /Creatinine Ratio 22, Glucose Level 149H, Calcium Level 8.1L, Phosphorus Level 2.8, Magnesium Level 1.9, Troponin I 9.689*H 01/04/19 06:15: Lactic Acid Level 3.44*H 01/04/19 09:00: Lactic Acid Level 2.07*H 01/04/19 11:25: Glucometer 189H 01/04/19 12:10: Triglycerides Level 290H, Vancomycin Level Trough 12.0 01/04/19 16:56: Glucometer 224H Microbiology 01/02/19 Blood Culture - Preliminary, Resulted No growth 01/02/19 Gram Stain - Final, Complete 01/02/19 Sputum Culture - Final, Complete Usual upper respiratory manuel A/P: Assessment/Dx: NSTEMI, refractory to medical therapy. Acute respiratory failure, Active smoking, Diabetes, COPD Plan: Non-STEMI refractory to medical therapy, aspirin, Brilinta. 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 Proximal OM artery had severe stenosis with haziness and CHRIS 2 flow which is likely the culprit artery. 2 drug-eluting stents placed. LAD and RCA to be addressed later when the patient is much more stable. The patient has sepsis with leukocytosis, respiratory acidosis, lactic acidosis , mild fever. Source is likely right lower lobe pneumonia. Worsening sepsis, defer to Dr. Riggs. Acute respiratory failure, intubated/ventilated. Sepsis, likely right lower lobe pneumonia. Broad-spectrum antibiotic. On cefepime and vancomycin. Active smoking, strongly recommended to quit on admission. Diabetes, deferred to the primary team. Critically ill patient. Thank you for your consultation. Please call me if you have any questions. Bety Mercado MD, FACP, FACC, FSCAI, FHRS, CCDS Interventional Cardiology Cardiac Electrophysiology Vascular Medicine and Endovascular Interventions Focused Exam Lactate Level 01/03/19 17:29: Lactic Acid Level 3.18*H 01/04/19 06:15: Lactic Acid Level 3.44*H 01/04/19 09:00: Lactic Acid Level 2.07*H Clinical Quality Measures AMI/AHF: ASA po Prior to arrival: Jc Cheatham MD January 04, 2019 19:17
[2019-01-04] MEDS: MONTELUKAST 10 MG (SINGULAIR) TAB PO SCH (20:15)
[2019-01-04] MEDS: ATORVASTATIN 80 MG (LIPITOR) TABLET PO SCH (20:15)
[2019-01-05] VITALS (33 sets, daily range): BP systolic 142–169; BP diastolic 77–101
[2019-01-05] MEDS: PROPOFOL DRIP (ICU) 100 ML IV SCH ×5 (01:18→21:29)
[2019-01-05] MEDS: LACTATED RINGERS 1,000 ML IV SCH ×3 (02:25→15:09)
[2019-01-05] MEDS: RT-ALBUTEROL/IPRATROPIUM 3 ML (DUONEB) VIAL INH SCH ×6 (02:28→21:32)
[2019-01-05 02:45] LABS: BASOPHILS % (AUTO) 0 % (0-10); EOSINOPHILS % (AUTO) 0 % (0-10); HEMATOCRIT 38 % (35-52); HEMOGLOBIN 12.6 G/DL (11.5-16.0); LYMPHOCYTES # (AUTO) 1.3 X 10^3 (1.0-4.0); LYMPHOCYTES % (AUTO) 9 % (12-44); MEAN CORPUSCULAR HEMOGLOBIN 32 PG (25-34); MEAN CORPUSCULAR HGB CONC 33 G/DL (32-36); MEAN CORPUSCULAR VOLUME 97 FL (80-99); MEAN PLATELET VOLUME 10.2 FL (7.4-10.4); MONOCYTES # (AUTO) 1.5 X 10^3 (0.0-1.0); MONOCYTES % (AUTO) 10 % (0-12); NEUTROPHILS # (AUTO) 12.8 X 10^3 (1.8-7.8); NEUTROPHILS % (AUTO) 82 % (42-75); PLATELET COUNT 211 10^3/uL (130-400); RED CELL DISTRIBUTION WIDTH 13.9 % (10.0-14.5); WHITE BLOOD COUNT 15.7 10^3/uL (4.3-11.0)
[2019-01-05 02:56] LABS: BUN/CREATININE RATIO 23; CALCIUM 8.4 MG/DL (8.5-10.1); CARBON DIOXIDE 20 MMOL/L (21-32); CHLORIDE 111 MMOL/L (98-107); CREATININE SERUM 0.88 MG/DL (0.60-1.30); GFR ESTIMATED > 60; GLUCOSE 233 MG/DL (70-105); MAGNESIUM 2.2 MG/DL (1.8-2.4); PHOSPHORUS 2.8 MG/DL (2.3-4.7); POTASSIUM 4.7 MMOL/L (3.6-5.0); SODIUM 141 MMOL/L (135-145)
[2019-01-05 04:02] LABS: ABG BASE EXCESS -0.5 MMOL/L (-2.5-2.5); ABG OXYGEN SATURATION 94 % (94-100); ABG PCO2 38 MMHG (35-45); ABG PH 7.41 (7.37-7.43); ABG PO2 73 MMHG (79-93); ABG TCO2 24.4 MMOL/L (21.0-31.0)
[2019-01-05 04:07] LABS: ALLENS TEST POSITIVE; INSPIRED O2 25% VENT; PATIENT TEMP 100.7; VENTILATOR YES
[2019-01-05] MEDS: ACETAMINOPHEN 500 MG TAB (TYLENOL) PO PRN (04:15)
--- NOTE | 2019-01-05 05:07 | Pulmonary Progress Note ---
Subjective Time Seen by a Provider: 05:55 Subjective/Events-last exam Sedated on vent family at bedside. Sepsis Event Evaluation Height, Weight, BMI Height: 6'0.00" Weight: 289lbs. 9.0oz. [id number]; 34.8 BMI Method:Stated Focused Exam Lactate Level 01/03/19 17:29: Lactic Acid Level 3.18*H 01/04/19 06:15: Lactic Acid Level 3.44*H 01/04/19 09:00: Lactic Acid Level 2.07*H Exam Exam Vital Signs Date Time Temp Pulse Resp B/P (MAP) Pulse Ox O2 Delivery O2 Flow Rate FiO2 01/05/19 04:15 100.7 01/05/19 04:00 100.7 01/05/19 04:00 93 Mechanical Ventilator 25 01/05/19 04:00 75 23 155/87 (109) 93 Mechanical Ventilator 25.00 01/05/19 03:00 77 24 155/84 (107) 93 Mechanical Ventilator 25.00 01/05/19 02:25 Mechanical Ventilator 25.00 01/05/19 02:00 75 23 152/83 (106) 94 Mechanical Ventilator 30.00 01/05/19 01:18 Mechanical Ventilator 30.00 01/05/19 01:02 77 01/05/19 01:00 77 23 154/85 (108) 94 Mechanical Ventilator 30.00 01/05/19 00:30 75 24 94 30 01/05/19 00:00 79 24 155/86 (109) 94 Mechanical Ventilator 30.00 01/04/19 23:25 94 Mechanical Ventilator 30 01/04/19 23:15 99.2 Mechanical Ventilator 30.00 01/04/19 23:00 79 24 152/85 (107) 94 Mechanical Ventilator 30.00 01/04/19 22:30 Mechanical Ventilator 30.00 01/04/19 22:27 76 24 94 30 01/04/19 22:00 75 23 152/87 (108) 94 Mechanical Ventilator 35.00 01/04/19 21:00 76 24 146/85 (105) 95 Mechanical Ventilator 35.00 01/04/19 21:00 77 24 146/85 95 Mechanical Ventilator 35.00 01/04/19 20:00 95 Mechanical Ventilator 35 01/04/19 20:00 76 23 146/85 (105) 96 Mechanical Ventilator 35.00 01/04/19 19:30 98.6 75 24 138/79 (98) 96 Mechanical Ventilator 35.00 01/04/19 19:13 73 24 96 35 01/04/19 19:02 72 01/04/19 18:00 74 22 142/81 (101) Mechanical Ventilator 35.00 01/04/19 17:00 74 18 139/82 (101) Mechanical Ventilator 35.00 01/04/19 16:01 142/75 01/04/19 16:00 76 25 142/75 (97) Mechanical Ventilator 35.00 01/04/19 15:13 Mechanical Ventilator 35 01/04/19 15:11 97.2 01/04/19 15:00 77 23 152/81 (104) Mechanical Ventilator 35.00 01/04/19 14:08 74 24 95 35 01/04/19 14:00 74 24 150/84 (106) Mechanical Ventilator 35.00 01/04/19 13:00 83 01/04/19 13:00 83 24 153/83 (106) Mechanical Ventilator 35.00 01/04/19 12:10 147/75 01/04/19 12:00 85 24 149/79 (102) 95 Mechanical Ventilator 35.00 01/04/19 11:48 Mechanical Ventilator 35 01/04/19 11:42 97.8 01/04/19 11:00 85 23 139/70 (93) 95 Mechanical Ventilator 35.00 01/04/19 10:28 81 24 95 35 01/04/19 10:08 136/76 01/04/19 10:00 81 23 136/76 (96) 95 Mechanical Ventilator 35.00 01/04/19 09:00 80 23 132/74 (93) 95 Mechanical Ventilator 35.00 01/04/19 08:37 Mechanical Ventilator 35 01/04/19 08:19 84 24 95 35 01/04/19 08:11 Mechanical Ventilator 35 01/04/19 08:09 96.8 01/04/19 08:00 82 25 120/63 (82) 95 Mechanical Ventilator 35.00 01/04/19 07:27 108/55 01/04/19 07:00 84 24 112/57 (75) 95 Mechanical Ventilator 35.00 01/04/19 07:00 84 01/04/19 06:34 81 24 96 35 01/04/19 06:00 85 24 113/58 (76) 96 Mechanical Ventilator 35.00 01/04/19 05:51 98.0 88 24 108/55 95 Mechanical Ventilator 35.00 I & O 01/05/19 07:00 Intake Total 7703.5 ml Output Total 1575 ml Balance 6128.5 ml Height & Weight Height: 6'0.00" Weight: 289lbs. 9.0oz. 131.615058dr; 34.8 BMI Method:Stated General Appearance: No Apparent Distress, WD/WN, Anxious, Chronically ill, Other (pt sedated on vent) HEENT: Normal ENT Inspection, Moist Mucous Membranes Neck: Full Range of Motion, Normal Inspection Respiratory: Accessory Muscle Use, Decreased Breath Sounds, Respiratory Distress Cardiovascular: Regular Rate, Rhythm, No Edema, Normal Peripheral Pulses Capillary Refill: Less Than 3 Seconds Gastrointestinal: normal bowel sounds, non tender, soft, no organomegaly, no pulsatile mass Extremity: Normal Capillary Refill, Normal Inspection, Pedal Edema Skin: Normal Color, Warm/Dry Results Lab Laboratory Tests 01/03/19 15:05 01/04/19 03:00 01/05/19 02:32 Assessment/Plan Assessment/Plan Acute respiratory failure -- much worse -Continue ventilator care -Propofol, Fentanyl precedex -TF Pulmonary edema with anasarca -Give 2mg of Bumex IV X 1 CP with NSTEMI and EKG changes s/p cath -Cardiology following -Morphine CT scan shows possible PE -- I am not convinced this is PE -Lovenox was started -Bilateral dopplers -- neg Severe sepsis secondary to pneumonia -Persistent fever, leukocytosis is improving -Repan cultures pending -Continue Abx -Pt is on severe sepsis protocol -Reilly culture, check UA -MRSA swab -Start Rocephin Metabolic lactic acidosis - improving -IVF -Monitor COPDAE -SoluCortef 100 to IV q12 -- change to solumedrol -SVNs -Singulair, Claritin Hx of COPD with persistent tobacco use -education -oxygen -monitor Probable JAC -Out pt testing JOSE LUIS MONTOYA DO January 05, 2019 05:07
[2019-01-05] MEDS: inSUlin ASPART (NovoLOG) 1 UNIT/0.01 ML (CHARGE PER UNIT) SC SCH ×4 (05:36→23:32)
[2019-01-05] MEDS: CEFEPIME INJECTION 1,000 MG in WATER (STERILE) FOR INJECTION 10 ML IV SCH ×4 (05:36→23:45)
[2019-01-05 05:41] LABS: BILIRUBIN,URINE NEGATIVE (NEGATIVE); CLARITY,URINE CLEAR; COLOR,URINE YELLOW; GLUCOSE, URINE (UA) NEGATIVE (NEGATIVE); KETONES,URINE NEGATIVE (NEGATIVE); LEUKOCYTE ESTERASE ,URINE 1+ (NEGATIVE); NITRITE,URINE NEGATIVE (NEGATIVE); PH,URINE 6 (5-9); PROTEIN,URINE 1+ (NEGATIVE); UROBILINOGEN,URINE NORMAL (NORMAL)
[2019-01-05 05:51] LABS: BACTERIA,URINE TRACE /HPF; SQUAMOUS EPITHELIAL CELL,UR RARE /HPF; WBC,URINE 0-2 /HPF
--- NOTE | 2019-01-05 07:42 | Diagnostic Imaging Report ---
PATIENT HISTORY: Chest pain. TECHNIQUE: Frontal view of the chest COMPARISON: 01/04/2019 FINDINGS: The endotracheal tube is approximately 4.5 cm from the kehinde. The right PICC line projects over the mid SVC. An enteric tube is not well seen distally, but appears to enter the stomach. There are airspace opacities in the lungs bilaterally which appear mildly increased, particularly in the right midlung and the left lung base. There is cardiomegaly with central vascular congestion which appears increased. No pneumothorax is seen. There is a small left pleural effusion. IMPRESSION: 1. Increasing central vascular congestion with increased airspace opacities in the right midlung and left lung base, may represent edema. 2. Small left pleural effusion. Dictated by: Dictated on workstation # [id number]
[2019-01-05] MEDS: TICAGRELOR 90 MG TABLET (BRILINTA) PO SCH ×2 (08:26→20:42)
[2019-01-05] MEDS: PANTOPRAZOLE 40 MG (PROTONIX) VIAL IV SCH (08:26)
[2019-01-05] MEDS: LORATADINE (CLARITIN) 10 MG TAB PO SCH (08:26)
[2019-01-05] MEDS: lisINopril 5 MG (PRINIVIL) TABLET PO SCH (08:26)
[2019-01-05] MEDS: HYDROCORTISONE 100 MG/2 ML (Solu-CORTEF) VIAL IV SCH ×2 (08:26→20:41)
[2019-01-05] MEDS: ASPIRIN E.C. 81 MG (ECOTRIN) TAB PO SCH (08:26)
[2019-01-05] MEDS: meTOproloL SUCCINATE 50 MG (TOPROL XL) TAB PO SCH (08:26)
[2019-01-05] MEDS: fentaNYL INJECTION 1,250 MCG in NS (IVPB) 250 ML IV SCH ×2 (08:53→23:03)
[2019-01-05] MEDS: ENOXAPARIN 40 MG/0.4 ML (LOVENOX) SYR SC SCH ×2 (11:09→23:45)
--- NOTE | 2019-01-05 11:15 | NUR ---
Pastoral care visit.
[2019-01-05] MEDS: VANCOMYCIN 1,750 MG/NS 500 ML IVPB IV SCH ×2 (12:28)
[2019-01-05] MEDS: DEXMEDETOMIDINE INJECTION 1,000 MCG in NS (IVPB) 250 ML IV SCH (15:08)
[2019-01-05] MEDS: hydrALAZINE (APESOLINE) 20 MG/ML VIAL IV PRN (15:23)
--- NOTE | 2019-01-05 16:01 | Progress Note-Hospitalist ---
Progress Note Progress Notes/Assess & Plan Date Seen 01/05/19 Time Seen by Provider: 15:56 Assessment & Plan The patient is a 63-year-old white female who presented to the [facility] emergency room on the evening of 01/01. She had been ill for about 3-4 hours before giving up and driving herself to the emergency room. The pain had been constant during that period of time. Workup showed a white blood count initially of 26,200. Additionally her troponins I was initially 0.745 which is elevated, it ultimately peaked at 16.13 and then began to decline. Her lactic acid in the resuscitation was elevated modestly at 2.35. Serially it then climbed to 4.32 and then peaked at 5.4 before declining. Today's reading is 2.07. Chest x-ray and CT pulmonary angiography did not demonstrate any pneumonia. Given the remarkable elevation of her troponin during the night of admission she was taken to the angiography lab on the morning of 01/02. She was found to have a severe stenosis of the obtuse marginal artery and angioplasty and stenting were performed. She remains on the ventilator although her vital signs are quite satisfactory and her laboratory abnormalities are correcting. Physical exam: Color is good. She is sedated and resting comfortably on the ventilator. Lungs are clear to auscultation. CV is regular without murmur. Abdomen is obese. Impression: Lactic acidosis and laboratory evidence suggesting sepsis. No site of infection has been defined. 2.acute non-STEMI. 3.status post intervention on severe obtuse marginal stenosis Focused Exam Lactate Level 01/03/19 17:29: Lactic Acid Level 3.18*H 01/04/19 06:15: Lactic Acid Level 3.44*H 01/04/19 09:00: Lactic Acid Level 2.07*H ANDREA WHITING MD January 05, 2019 16:01
--- NOTE | 2019-01-05 17:15 | Cardiology Progress Note ---
Cardiology SOAP Progress Note Subjective: Intubated/ventilated. Objective: I&O/Vital Signs 01/05/19 01/05/19 01/05/19 01/05/19 05:26 06:00 06:09 06:11 Temp 100.3 Pulse 72 72 Resp 24 24 B/P (MAP) 155/91 (112) Pulse Ox 93 95 O2 Delivery Mechanical Ventilator Mechanical Ventilator O2 Flow Rate 25.00 25.00 FiO2 30 01/05/19 01/05/19 01/05/19 01/05/19 07:00 07:00 08:00 08:00 Pulse 76 75 75 Resp 23 24 B/P (MAP) 160/90 (113) 149/101 (117) Pulse Ox 92 93 93 O2 Delivery Mechanical Ventilator Mechanical Ventilator Mechanical Ventilator O2 Flow Rate 25.00 25.00 FiO2 25 01/05/19 01/05/19 01/05/19 01/05/19 08:41 09:00 10:00 10:48 Pulse 73 72 72 71 Resp 24 24 24 24 B/P (MAP) 154/87 (109) 157/87 (110) Pulse Ox 93 91 92 92 O2 Delivery Mechanical Ventilator Mechanical Ventilator O2 Flow Rate 25.00 25.00 FiO2 30 30 01/05/19 01/05/19 01/05/19 01/05/19 11:00 12:00 12:00 12:29 Pulse 73 74 82 Resp 23 6 B/P (MAP) 155/87 (109) 164/88 (113) Pulse Ox 92 92 92 O2 Delivery Mechanical Ventilator Mechanical Ventilator Mechanical Ventilator O2 Flow Rate 25.00 25.00 FiO2 25 01/05/19 01/05/19 01/05/19 01/05/19 12:40 12:47 13:00 14:00 Pulse 82 74 81 70 Resp 24 23 7 B/P (MAP) 168/92 (117) 164/89 (114) Pulse Ox 88 89 92 O2 Delivery Mechanical Ventilator Mechanical Ventilator O2 Flow Rate 25.00 25.00 FiO2 30 01/05/19 01/05/19 01/05/19 01/05/19 14:23 15:00 16:00 16:36 Pulse 70 71 71 68 Resp 24 23 23 24 B/P (MAP) 161/88 (112) 149/77 (101) Pulse Ox 93 93 93 93 O2 Delivery Mechanical Ventilator Mechanical Ventilator O2 Flow Rate 25.00 25.00 FiO2 30 30 01/05/19 01/05/19 17:00 17:08 Pulse 67 67 Resp 23 B/P (MAP) 149/79 (102) Pulse Ox 94 O2 Delivery Mechanical Ventilator O2 Flow Rate 25.00 01/05/19 00:00 Intake Total 3832.5 ml Output Total 875 ml Balance 2957.5 ml Weight (Pounds): 303 Weight (Ounces): 6.0 Weight (Calculated Kilograms): 137.192874 Constitutional: appears stated age, apparent distress, well-developed, well- nourished, other (Intubated/ventilated.) Respiratory: No accessory muscle use, No respiratory distress, No chest tender , No chest expansion is symmetric; chest is bilaterally symmetric; No lungs clear to percussion; lungs clear to auscultation; No crackles, No rhonchi, No rales, No stridor, No wheezing, No pleural rub, No other Cardiovascular: regular rate-rhythm; No irregularly irregular, No extra beats, No parasternal heave is noted, No JVD, No edema, No bradycardia, No tachycardia , No point of maximal impulse, No cardiac thrills are palpable; S1 and S2; No gallop/S3, No gallop/S4, No diastolic murmur, No systolic murmur, No friction rub, No click, No other Gastrointestional: No tender, No soft, No round, No distended, No pulsatile mass, No organomegaly, No guarding, No rebound, No tenderness, No hernia, No mass, No audible bowel sounds, No abnormal bowel sounds, No abdominal bruits, No spleenomegaly, No other Extremities: No normal range of motion, No non-tender, No normal inspection, No pedal edema, No calf tenderness, No normal capillary refill, No pelvis stable , No calf tenderness, No inflammation, No pedal edema, No slow capillary refill , No swelling, No other, No abrasion, No clubbing, No cyanosis, No ecchymosis, No laceration, No no lower extremity edema bilateral, No significant edema, No tenderness, No wound Neurologic/Psychiatric: other (Intubated/ventilated.) Skin: No normal color, No warm/dry, No cyanosis, No cool, No diaphoresis, No damp, No ecchymosis, No jaundice, No mottled, No pallor, No rash, No tattoos/ piercings, No ulcerations, No rash on exposed areas, No ulcerations on exposed areas, No other Results/Procedures: Labs Laboratory Tests 01/04/19 23:21: Glucometer 224H 01/05/19 02:32: White Blood Count 15.7H, Red Blood Count 3.91L, Hemoglobin 12.6, Hematocrit 38, Mean Corpuscular Volume 97, Mean Corpuscular Hemoglobin 32, Mean Corpuscular Hemoglobin Concent 33, Red Cell Distribution Width 13.9, Platelet Count 211, Mean Platelet Volume 10.2, Neutrophils (%) (Auto) 82H, Lymphocytes (%) (Auto) 9L , Monocytes (%) (Auto) 10, Eosinophils (%) (Auto) 0, Basophils (%) (Auto) 0, Neutrophils # (Auto) 12.8H, Lymphocytes # (Auto) 1.3, Monocytes # (Auto) 1.5H, Eosinophils # (Auto) 0.0, Basophils # (Auto) 0.0, Sodium Level 141, Potassium Level 4.7, Chloride Level 111H, Carbon Dioxide Level 20L, Anion Gap 10, Blood Urea Nitrogen 20H, Creatinine 0.88, Estimat Glomerular Filtration Rate > 60, BUN /Creatinine Ratio 23, Glucose Level 233H, Calcium Level 8.4L, Phosphorus Level 2.8, Magnesium Level 2.2 01/05/19 03:51: Blood Gas Puncture Site LEFT RADIAL, Blood Gas Patient Temperature 100.7, Arterial Blood pH 7.41, Arterial Blood Partial Pressure CO2 38, Arterial Blood Partial Pressure O2 73L, Arterial Blood HCO3 23, Arterial Blood Total CO2 24.4, Arterial Blood Oxygen Saturation 94, Arterial Blood Base Excess -0.5, Denny Test POSITIVE, Blood Gas Ventilator Setting YES, Blood Gas Inspired Oxygen 25% VENT 01/05/19 05:30: Urine Color YELLOW, Urine Clarity CLEAR, Urine pH 6, Urine Specific S[place]heimer 1.015L, Urine Protein 1+H, Urine Glucose (UA) NEGATIVE, Urine Ketones NEGATIVE, Urine Nitrite NEGATIVE, Urine Bilirubin NEGATIVE, Urine Urobilinogen NORMAL, Urine Leukocyte Esterase 1+H, Urine RBC (Auto) 1+H, Urine RBC NONE, Urine WBC 0- 2, Urine Squamous Epithelial Cells RARE, Urine Crystals NONE, Urine Bacteria TRACE, Urine Casts NONE, Urine Mucus NEGATIVE, Urine Culture Indicated NO 01/05/19 05:31: Glucometer 208H 01/05/19 10:50: Glucometer 183H 01/05/19 17:01: Glucometer 211H Microbiology 01/02/19 Blood Culture - Preliminary, Resulted No growth 01/02/19 Gram Stain - Final, Complete 01/02/19 Sputum Culture - Final, Complete Usual upper respiratory manuel A/P: Assessment/Dx: NSTEMI, refractory to medical therapy. Acute respiratory failure, Active smoking, Diabetes, COPD Plan: Non-STEMI refractory to medical therapy, aspirin, Brilinta. 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 Proximal OM artery had severe stenosis with haziness and CHRIS 2 flow which is likely the culprit artery. 2 drug-eluting stents placed. LAD and RCA to be addressed later when the patient is much more stable. Hemodynamically stable, off pressors. The patient has sepsis with leukocytosis, respiratory acidosis, lactic acidosis , mild fever. Source is likely right lower lobe pneumonia. Worsening sepsis, defer to Dr. Riggs. Acute respiratory failure, intubated/ventilated. Sepsis, likely right lower lobe pneumonia. Broad-spectrum antibiotic. On cefepime and vancomycin. Active smoking, strongly recommended to quit on admission. Diabetes, deferred to the primary team. Critically ill patient. Thank you for your consultation. Please call me if you have any questions. Bety Mercado MD, FACP, FACC, FSCAI, FHRS, CCDS Interventional Cardiology Cardiac Electrophysiology Vascular Medicine and Endovascular Interventions Focused Exam Lactate Level 01/03/19 17:29: Lactic Acid Level 3.18*H 01/04/19 06:15: Lactic Acid Level 3.44*H 01/04/19 09:00: Lactic Acid Level 2.07*H Clinical Quality Measures AMI/AHF: ASA po Prior to arrival: Jc Cheatham MD January 05, 2019 5:15 pm
[2019-01-05] MEDS: MONTELUKAST 10 MG (SINGULAIR) TAB PO SCH (20:41)
[2019-01-05] MEDS: ATORVASTATIN 80 MG (LIPITOR) TABLET PO SCH (20:41)
[2019-01-06] VITALS (32 sets, daily range): BP systolic 18–168; BP diastolic 78–101
[2019-01-06] MEDS: LACTATED RINGERS 1,000 ML IV SCH (02:11)
[2019-01-06] MEDS: PROPOFOL DRIP (ICU) 100 ML IV SCH ×6 (02:18→20:48)
[2019-01-06] MEDS: RT-ALBUTEROL/IPRATROPIUM 3 ML (DUONEB) VIAL INH SCH ×6 (02:44→22:48)
[2019-01-06 03:48] LABS: ABG OXYGEN SATURATION 90 % (94-100); ABG PCO2 34 MMHG (35-45); ABG PH 7.46 (7.37-7.43); ABG PO2 58 MMHG (79-93); ABG TCO2 25.6 MMOL/L (21.0-31.0); BASOPHILS % (AUTO) 0 % (0-10); EOSINOPHILS % (AUTO) 0 % (0-10); HEMATOCRIT 38 % (35-52); HEMOGLOBIN 12.6 G/DL (11.5-16.0); LYMPHOCYTES # (AUTO) 1.7 X 10^3 (1.0-4.0); LYMPHOCYTES % (AUTO) 11 % (12-44); MEAN CORPUSCULAR HEMOGLOBIN 32 PG (25-34); MEAN CORPUSCULAR HGB CONC 33 G/DL (32-36); MEAN CORPUSCULAR VOLUME 95 FL (80-99); MEAN PLATELET VOLUME 10.5 FL (7.4-10.4); MONOCYTES # (AUTO) 1.3 X 10^3 (0.0-1.0); MONOCYTES % (AUTO) 9 % (0-12); NEUTROPHILS % (AUTO) 80 % (42-75); PLATELET COUNT 187 10^3/uL (130-400); RED CELL DISTRIBUTION WIDTH 13.5 % (10.0-14.5)
[2019-01-06 03:49] LABS: ALLENS TEST POSITIVE; INSPIRED O2 25%; PATIENT TEMP 97.7; VENTILATOR YES
[2019-01-06 04:07] LABS: BUN/CREATININE RATIO 22; CARBON DIOXIDE 21 MMOL/L (21-32); CHLORIDE 108 MMOL/L (98-107); CREATININE SERUM 0.72 MG/DL (0.60-1.30); GFR ESTIMATED > 60; GLUCOSE 192 MG/DL (70-105); MAGNESIUM 2.1 MG/DL (1.8-2.4); PHOSPHORUS 3.2 MG/DL (2.3-4.7); SODIUM 139 MMOL/L (135-145)
[2019-01-06] MEDS ORDERED: BUMETANIDE 1 MG/4 ML (BUMEX) VIAL IV ONE (05:15)
[2019-01-06] MEDS ORDERED: methylPREDNISolone 40 MG/ML (Solu-MEDROL) VIAL ONE (05:22)
[2019-01-06] MEDS ORDERED: BUMETANIDE 1 MG/4 ML (BUMEX) VIAL ONE (05:22)
[2019-01-06] MEDS ORDERED: POTASSIUM CL 10MEQ/50ML IVPB 200 ML IV ONE (05:30)
[2019-01-06] MEDS: CEFEPIME INJECTION 1,000 MG in WATER (STERILE) FOR INJECTION 10 ML IV SCH ×4 (05:35→23:44)
[2019-01-06] MEDS: methylPREDNISolone 40 MG/ML (Solu-MEDROL) VIAL IV SCH ×4 (05:35→23:44)
[2019-01-06] MEDS: inSUlin ASPART (NovoLOG) 1 UNIT/0.01 ML (CHARGE PER UNIT) SC SCH ×4 (05:36→23:44)
[2019-01-06] MEDS: POTASSIUM CL 10MEQ/50ML IVPB 50 ML IV SCH ×4 (05:36→07:34)
--- NOTE | 2019-01-06 05:55 | NUR ---
DR MONTOYA AT BEDSIDE, ORDERS TO DECREASE FENTANYL DRIP TO 50MCG/HR , INCREASE PRECEDEX DRIP TO 1.5MCG/KG/HR AND START TO TITRATE PROPOFOL TO D/C.
[2019-01-06] MEDS: DEXMEDETOMIDINE INJECTION 1,000 MCG in NS (IVPB) 250 ML IV SCH ×3 (05:59→22:23)
[2019-01-06] MEDS: hydrALAZINE (APESOLINE) 20 MG/ML VIAL IV PRN (06:53)
[2019-01-06] MEDS: TICAGRELOR 90 MG TABLET (BRILINTA) PO SCH ×2 (07:40→20:49)
[2019-01-06] MEDS: meTOproloL SUCCINATE 50 MG (TOPROL XL) TAB PO SCH (07:40)
[2019-01-06] MEDS: lisINopril 5 MG (PRINIVIL) TABLET PO SCH (07:40)
[2019-01-06] MEDS: LORATADINE (CLARITIN) 10 MG TAB PO SCH (07:40)
[2019-01-06] MEDS: ASPIRIN E.C. 81 MG (ECOTRIN) TAB PO SCH (07:41)
[2019-01-06] MEDS: PANTOPRAZOLE 40 MG (PROTONIX) VIAL IV SCH (07:41)
--- NOTE | 2019-01-06 07:59 | Diagnostic Imaging Report ---
Indication: Sepsis and heart disease. Comparison made with prior examination of 01/05/2019. Findings: Lines and tubes are in satisfactory position. There is cardiomegaly. Some venous congestion. Right perihilar atelectasis and/or pneumonitis. No pleural effusion or pneumothorax. Mediastinum is unremarkable. Impression: Right perihilar atelectasis and/or pneumonitis. Cardiomegaly and some central pulmonary venous congestion. Dictated by: Dictated on workstation # [id number]
--- NOTE | 2019-01-06 09:46 | History & Physical-Hospitalist ---
History of Present Illness HPI/Chief Complaint The patient is a 63-year-old white female with no previous history of cardiovascular disease noted the onset of rather sharp precordial chest pain that radiated to both arms roughly 3 hours prior to presentation to the emergency room. She had diaphoresis and shortness of breath with this. Upon presentation to the emergency room she appeared to be in acute distress with elevated troponin level and some ST depression in the anterior leads somewhat difficult to interpret as the patient was shaking. Initially her chest was clear and CTA study of the chest revealed no definitive evidence for pulmonary embolism or pneumonia. Patient was admitted to intensive care unit where she had progressive shortness of breath with ABG compatible acute respiratory failure for which she was intubated by Dr. Riggs and underwent emergent cardiac catheterization where the pulmonary report was patient had to critical stenosis of to obtuse marginal coronary arteries for which successful drug- eluting stents were placed. Currently the patient is on pressure support with mean arterial pressures greater than 65 sedated on mechanical ventilation. Date Seen 01/02/19 Time Seen by a Provider: 15:00 Attending Physician Evita Schwab MD PCP Referring Physician Date of Admission January 01, 2019 at 18:35 Home Medications & Allergies Home Medications Reviewed patient Home Medication Reconciliation performed by pharmacy medication reconciliations explosive ordnance disposal technician and/or nursing. Patients Allergies have been reviewed. Allergies Allergies Coded Allergies No Known Drug Allergies (Unverified01/01/19) Past Pkonjud-Lveudc-Diytzb Hx Past Med/Social Hx: Reviewed and Corrections made Patient Social History Alcohol Use: Denies Use Recreational Drug Use: No Smoking Status: Current Everyday Smoker Type Used: Cigarettes 2nd Hand Smoke Exposure: No Recent Foreign Travel: No Contact w/other who traveled: No Recent Hopitalizations: No Recent Infectious Disease Expo: No Immunizations Up To Date Date of Pneumonia Vaccine: January 01, 2017 Seasonal Allergies Seasonal Allergies: No Past Medical History Surgeries: Section, Hysterectomy Cardiac: Hypertension : No Hysterectomy Endocrine: Diabetes, Non-Insulin dep History of Blood Disorders: No Review of Systems ROS-Unable to Obtain: Due to the fact the patient is sedated and on mechanical ventilation Constitutional: see HPI Physical Exam Physical Exam Vital Signs Vital Signs - First Documented 01/01/19 01/01/19 01/01/19 16:47 18:15 19:10 Temp 97.6 Pulse 93 Resp 17 B/P (MAP) 187/58 (101) Pulse Ox 98 O2 Delivery Room Air O2 Flow Rate 2.00 FiO2 95 Capillary Refill : Less Than 3 Seconds Height, Weight, BMI Height: 6'0.00" Weight: 301lbs. 6.0oz. 136.195135vf; 34.8 BMI Method:Stated General Appearance: Moderate Distress Neck: Full Range of Motion, Normal Inspection Respiratory: Accessory Muscle Use, Other (Bilateral rales noted with scattered rhonchi due to the midlung ham posteriorly with rhonchi noted anteriorly no wheezing appreciated.) Cardiovascular: Regular Rate, Rhythm, No Edema, No Gallop, No JVD, No Murmur ( Difficult to hear over respiratory noises and mechanical ventilation however), Normal Peripheral Pulses Gastrointestinal: Normal Bowel Sounds, No Organomegaly, No Pulsatile Mass, Non Tender, Soft Extremity: Normal Capillary Refill, Normal Inspection, Normal Range of Motion, Non Tender, No Calf Tenderness, No Pedal Edema Neurologic/Psychiatric: Other (Sedated on vent but had been moving all extremities with no focal findings being appreciated prior to mechanical ventilation) Skin: Damp, Pallor Results Results/Procedures Labs Laboratory Tests 01/05/19 02:32 01/06/19 03:35 Patient resulted labs reviewed. Assessment/Plan Admission Diagnosis A/P 1. Acute coronary syndrome with secondary congestive heart failure leading to acute respiratory failure. Patient's condition temporarily stabilized on mechanical ventilation post OM stenting times two per Dr. Mercado. 2. There are also concerns for possible underlying pneumonia with sepsis Dr. Riggs's initiated broad-spectrum antibiotics will continue to monitor blood and sputum cultures pending. 3. History of ongoing tobaccoism with likely COPD patient for pulmonary function tests likely as an outpatient and will be discussing smoking cessation when appropriate. Admission Status: Inpatient Order (span 2 midnights) Reason for Inpatient Admission: See admission diagnosis Assessment and Plan Acute respiratory failure -improved from yesterday ABGs pain to improve patient and a 35 percent FiO2. If improvement continues suspect patiently ready for lightening of sedation and pressure support trials tomorrow. Defer to Dr. Riggs. -Continue ventilator care -Propofol, Fentanyl CP with NSTEMI and EKG changes -Dr. Espinoza-- apparently placed to obtuse marginal stents with disease in other arteries son noted report pending. This is according to nursing staff. -Cardiology following -Nitro was given in ED however made pt nauseated and did not improve pain -Morphine CT scan shows possible PE -- I am not convinced this is PE -Lovenox was started -Bilateral dopplers -- neg Severe sepsis secondary to pneumonia improving lactate levels returning to normal with stable vital signs. -Pt is on severe sepsis protocol -Reilly culture, check UA -MRSA swab -Start Rocephin Metabolic lactic acidosis -Lactic acid worsening. Repeat in 2hrs if still worsening CT abd/pelvis -IVF -Monitor Hyperkalemia -Repeat labs with mg, and phos COPDAE -Start Solumedrol IV Q 6 -SVNs -Singulair, Claritin Hx of COPD with persistent tobacco use -education -oxygen -monitor Probable JAC -Out pt testing Critical Care Critically Ill Patient Clinical Quality Measures AMI/AHF: ASA po Prior to arrival: No DVT/VTE Risk/Contraindication: Risk Factor Score Per Nursin RFS Level Per Nursing on Admit: 4+=Very High EVITA SCHWAB MD January 06, 2019 09:46
[2019-01-06] MEDS: fentaNYL INJECTION 1,250 MCG in NS (IVPB) 250 ML IV SCH (10:31)
[2019-01-06] MEDS: ENOXAPARIN 40 MG/0.4 ML (LOVENOX) SYR SC SCH ×2 (10:36→23:43)
--- NOTE | 2019-01-06 11:21 | Cardiology Progress Note ---
Cardiology SOAP Progress Note Subjective: Intubated/ventilated. Objective: I&O/Vital Signs 01/05/19 01/06/19 01/06/19 01/06/19 23:47 00:00 00:00 00:31 Temp 98.8 Pulse 65 64 Resp 23 24 B/P (MAP) 18/84 (62) Pulse Ox 94 94 95 O2 Delivery Mechanical Ventilator Mechanical Ventilator O2 Flow Rate 25.00 FiO2 25 25 01/06/19 01/06/19 01/06/19 01/06/19 01:00 01:00 02:00 02:18 Pulse 67 82 67 Resp 20 8 B/P (MAP) 138/101 (113) 153/78 (103) 153/78 Pulse Ox 93 94 O2 Delivery Mechanical Ventilator Mechanical Ventilator O2 Flow Rate 25.00 25.00 01/06/19 01/06/19 01/06/19 01/06/19 02:44 03:00 04:00 04:00 Temp 97.7 Pulse 64 67 Resp 24 9 B/P (MAP) 150/83 (105) Pulse Ox 94 94 94 O2 Delivery Mechanical Ventilator Mechanical Ventilator O2 Flow Rate 25.00 FiO2 25 25 01/06/19 01/06/19 01/06/19 01/06/19 04:00 05:00 05:58 06:00 Pulse 67 65 65 Resp 24 24 24 B/P (MAP) 167/87 (113) 167/89 (115) 167/90 164/90 (114) Pulse Ox 94 94 94 O2 Delivery Mechanical Ventilator Mechanical Ventilator Mechanical Ventilator O2 Flow Rate 25.00 25.00 25.00 01/06/19 01/06/19 01/06/19 01/06/19 06:05 07:00 07:00 08:00 Temp 98.8 Pulse 66 69 68 Resp 24 24 B/P (MAP) 162/87 (112) Pulse Ox 94 93 O2 Delivery Mechanical Ventilator O2 Flow Rate 25.00 FiO2 25 01/06/19 01/06/19 01/06/19 01/06/19 08:00 08:00 09:00 10:00 Pulse 67 84 71 Resp 24 14 13 B/P (MAP) 153/82 (105) 163/89 (113) 159/83 (108) Pulse Ox 92 93 91 92 O2 Delivery Mechanical Ventilator Mechanical Ventilator Mechanical Ventilator Mechanical Ventilator O2 Flow Rate 25.00 25.00 25.00 FiO2 25 01/06/19 01/06/19 01/06/19 10:17 10:26 11:00 Pulse 70 71 72 Resp 24 23 B/P (MAP) 163/84 (110) Pulse Ox 92 92 O2 Delivery Mechanical Ventilator O2 Flow Rate 25.00 FiO2 25 01/05/19 23:59 Intake Total 120 ml Output Total 1750 ml Balance -1630 ml Weight (Pounds): 301 Weight (Ounces): 6.0 Weight (Calculated Kilograms): 136.041184 Constitutional: appears stated age, apparent distress, well-developed, well- nourished, other (Intubated/ventilated.) Respiratory: No accessory muscle use, No respiratory distress, No chest tender , No chest expansion is symmetric; chest is bilaterally symmetric; No lungs clear to percussion; lungs clear to auscultation; No crackles, No rhonchi, No rales, No stridor, No wheezing, No pleural rub, No other Cardiovascular: regular rate-rhythm; No irregularly irregular, No extra beats, No parasternal heave is noted, No JVD, No edema, No bradycardia, No tachycardia , No point of maximal impulse, No cardiac thrills are palpable; S1 and S2; No gallop/S3, No gallop/S4, No diastolic murmur, No systolic murmur, No friction rub, No click, No other Gastrointestional: No tender, No soft, No round, No distended, No pulsatile mass, No organomegaly, No guarding, No rebound, No tenderness, No hernia, No mass, No audible bowel sounds, No abnormal bowel sounds, No abdominal bruits, No spleenomegaly, No other Extremities: No normal range of motion, No non-tender, No normal inspection, No pedal edema, No calf tenderness, No normal capillary refill, No pelvis stable , No calf tenderness, No inflammation, No pedal edema, No slow capillary refill , No swelling, No other, No abrasion, No clubbing, No cyanosis, No ecchymosis, No laceration, No no lower extremity edema bilateral, No significant edema, No tenderness, No wound Neurologic/Psychiatric: other (Intubated/ventilated.) Skin: No normal color, No warm/dry, No cyanosis, No cool, No diaphoresis, No damp, No ecchymosis, No jaundice, No mottled, No pallor, No rash, No tattoos/ piercings, No ulcerations, No rash on exposed areas, No ulcerations on exposed areas, No other Results/Procedures: Labs Laboratory Tests 01/05/19 17:01: Glucometer 211H 01/05/19 23:29: Glucometer 170H 01/06/19 03:35: White Blood Count 15.0H, Red Blood Count 3.95L, Hemoglobin 12.6, Hematocrit 38, Mean Corpuscular Volume 95, Mean Corpuscular Hemoglobin 32, Mean Corpuscular Hemoglobin Concent 33, Red Cell Distribution Width 13.5, Platelet Count 187, Mean Platelet Volume 10.5H, Neutrophils (%) (Auto) 80H, Lymphocytes (%) (Auto) 11L, Monocytes (%) (Auto) 9, Eosinophils (%) (Auto) 0, Basophils (%) (Auto) 0, Neutrophils # (Auto) 12.0H, Lymphocytes # (Auto) 1.7, Monocytes # (Auto) 1.3H, Eosinophils # (Auto) 0.0, Basophils # (Auto) 0.0, Blood Gas Puncture Site LEFT RADIAL, Blood Gas Patient Temperature 97.7, Arterial Blood pH 7.46H, Arterial Blood Partial Pressure CO2 34L, Arterial Blood Partial Pressure O2 58L, Arterial Blood HCO3 25, Arterial Blood Total CO2 25.6, Arterial Blood Oxygen Saturation 90L, Arterial Blood Base Excess 1.0, Denny Test POSITIVE, Blood Gas Ventilator Setting YES, Blood Gas Inspired Oxygen 25%, Sodium Level 139, Potassium Level 4.0, Chloride Level 108H, Carbon Dioxide Level 21, Anion Gap 10 , Blood Urea Nitrogen 16, Creatinine 0.72, Estimat Glomerular Filtration Rate > 60, BUN/Creatinine Ratio 22, Glucose Level 192H, Calcium Level 8.0L, Phosphorus Level 3.2, Magnesium Level 2.1 01/06/19 10:40: Glucometer 219H Microbiology 01/05/19 Blood Culture - Preliminary, Resulted No growth 01/05/19 Gram Stain - Final, Resulted 01/05/19 Sputum Culture, Resulted Pending A/P: Assessment/Dx: NSTEMI, refractory to medical therapy. Acute respiratory failure, Active smoking, Diabetes, COPD Plan: Non-STEMI refractory to medical therapy, aspirin, Brilinta. 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 Proximal OM artery had severe stenosis with haziness and CHRIS 2 flow which is likely the culprit artery. 2 drug-eluting stents placed. LAD and RCA to be addressed later when the patient is much more stable. Hemodynamically stable, off pressors. The patient has sepsis with leukocytosis, respiratory acidosis, lactic acidosis , mild fever. Source is likely right lower lobe pneumonia. Improving sepsis, defer to Dr. Riggs. Acute respiratory failure, intubated/ventilated. Sepsis, likely right lower lobe pneumonia. Broad-spectrum antibiotic. On cefepime and vancomycin. Active smoking, strongly recommended to quit on admission. Diabetes, deferred to the primary team. Critically ill patient. Thank you for your consultation. Please call me if you have any questions. Bety Mercado MD, FACP, FACC, FSCAI, FHRS, CCDS Interventional Cardiology Cardiac Electrophysiology Vascular Medicine and Endovascular Interventions Focused Exam Lactate Level 01/03/19 17:29: Lactic Acid Level 3.18*H 01/04/19 06:15: Lactic Acid Level 3.44*H 01/04/19 09:00: Lactic Acid Level 2.07*H Clinical Quality Measures AMI/AHF: ASA po Prior to arrival: Jc Cheatham MD January 06, 2019 11:21
[2019-01-06] MEDS: VANCOMYCIN 1,750 MG/NS 500 ML IVPB IV SCH ×2 (12:32)
--- NOTE | 2019-01-06 15:22 | Progress Note-Hospitalist ---
Progress Note Progress Notes/Assess & Plan Date Seen 01/06/19 Time Seen by Provider: 15:20 Assessment & Plan The patient remains deeply sedated and paralyzed. Her vital signs are stable. Lungs are clear to auscultation. CV is regular. Abdomen is obese and nontender. Impression: Bilateral pneumonia. 2.respiratory failure. 3.N STEMI post intervention. There are apparently several additional lesions to be dealt with after further recovery. Plan: There is to be an attempt at weaning from the ventilator tomorrow. Focused Exam Lactate Level 01/03/19 17:29: Lactic Acid Level 3.18*H 01/04/19 06:15: Lactic Acid Level 3.44*H 01/04/19 09:00: Lactic Acid Level 2.07*H ANDREA WHITING MD January 06, 2019 15:22
[2019-01-06] MEDS: ATORVASTATIN 80 MG (LIPITOR) TABLET PO SCH (20:49)
[2019-01-06] MEDS: meTOprolol TARTRATE 25 MG (LOPRESSOR) TABLET GT SCH (20:49)
[2019-01-06] MEDS: MONTELUKAST 10 MG (SINGULAIR) TAB PO SCH (20:49)
[2019-01-07] VITALS (25 sets, daily range): BP systolic 117–173; BP diastolic 49–92
[2019-01-07] MEDS: hydrALAZINE (APESOLINE) 20 MG/ML VIAL IV PRN (01:10)
[2019-01-07] MEDS: PROPOFOL DRIP (ICU) 100 ML IV SCH ×2 (01:11→03:39)
[2019-01-07] MEDS: RT-ALBUTEROL/IPRATROPIUM 3 ML (DUONEB) VIAL INH SCH ×6 (02:22→22:49)
[2019-01-07 03:24] LABS: BASOPHILS % (AUTO) 0 % (0-10); EOSINOPHILS % (AUTO) 0 % (0-10); HEMATOCRIT 37 % (35-52); HEMOGLOBIN 12.6 G/DL (11.5-16.0); LYMPHOCYTES # (AUTO) 0.7 X 10^3 (1.0-4.0); LYMPHOCYTES % (AUTO) 4 % (12-44); MEAN CORPUSCULAR HEMOGLOBIN 32 PG (25-34); MEAN CORPUSCULAR HGB CONC 34 G/DL (32-36); MEAN CORPUSCULAR VOLUME 94 FL (80-99); MEAN PLATELET VOLUME 10.3 FL (7.4-10.4); MONOCYTES % (AUTO) 7 % (0-12); NEUTROPHILS # (AUTO) 13.5 X 10^3 (1.8-7.8); NEUTROPHILS % (AUTO) 89 % (42-75); PLATELET COUNT 190 10^3/uL (130-400); RED CELL DISTRIBUTION WIDTH 13.1 % (10.0-14.5); WHITE BLOOD COUNT 15.1 10^3/uL (4.3-11.0)
[2019-01-07 03:25] LABS: ABG BASE EXCESS 4.2 MMOL/L (-2.5-2.5); ABG OXYGEN SATURATION 93 % (94-100); ABG PCO2 34 MMHG (35-45); ABG PH 7.52 (7.37-7.43); ABG PO2 65 MMHG (79-93); ABG TCO2 28.2 MMOL/L (21.0-31.0)
[2019-01-07 03:26] LABS: ALLENS TEST POSITIVE; INSPIRED O2 25% FIO2; PATIENT TEMP 98.5; VENTILATOR YES
[2019-01-07 03:42] LABS: BUN/CREATININE RATIO 27; CARBON DIOXIDE 22 MMOL/L (21-32); CHLORIDE 105 MMOL/L (98-107); CREATININE SERUM 0.66 MG/DL (0.60-1.30); GFR ESTIMATED > 60; GLUCOSE 201 MG/DL (70-105); MAGNESIUM 2.2 MG/DL (1.8-2.4); PHOSPHORUS 2.7 MG/DL (2.3-4.7); POTASSIUM 3.9 MMOL/L (3.6-5.0); SODIUM 139 MMOL/L (135-145)
[2019-01-07] MEDS: DEXMEDETOMIDINE INJECTION 1,000 MCG in NS (IVPB) 250 ML IV SCH ×4 (04:26→21:32)
[2019-01-07 04:48] LABS: LYMPHOCYTES % (MANUAL) 5 %; MONOCYTES % (MANUAL) 8 %; NEUTROPHILS % (MANUAL) 87 %
[2019-01-07] MEDS ORDERED: FUROSEMIDE 40 MG/4 ML INJ (LASIX) IVP ONE (05:45)
[2019-01-07] MEDS ORDERED: ANIDULAFUNGIN INJECTION 200 MG in NS (IVPB) 250 ML IV ONE (05:45)
[2019-01-07] MEDS ORDERED: FUROSEMIDE 40 MG/4 ML INJ (LASIX) ONE (05:59)
[2019-01-07] MEDS ORDERED: D5W IV SCH (06:00)
[2019-01-07] MEDS ORDERED: TRIMETHO IV SCH (06:00)
[2019-01-07] MEDS ORDERED: SULFAMETHOXAZOLE IV SCH (06:00)
--- NOTE | 2019-01-07 06:18 | Pulmonary Progress Note ---
Subjective Date Seen by a Provider: January 06, 2019 (Late entry for 01/06 today is 01/07 ) Time Seen by a Provider: 06:18 Subjective/Events-last exam Sedated on ventilator Sepsis Event Evaluation Height, Weight, BMI Height: 6'0.00" Weight: 301lbs. 6.0oz. 136.732455qq; 34.8 BMI Method:Stated Focused Exam Lactate Level 01/04/19 06:15: Lactic Acid Level 3.44*H 01/04/19 09:00: Lactic Acid Level 2.07*H Exam Exam Vital Signs Date Time Temp Pulse Resp B/P (MAP) Pulse Ox O2 Delivery O2 Flow Rate FiO2 01/07/19 05:00 68 23 158/81 (106) 92 Mechanical Ventilator 25.00 01/07/19 04:00 98.5 01/07/19 04:00 91 Mechanical Ventilator 25 01/07/19 04:00 69 23 151/78 (102) 91 Mechanical Ventilator 25.00 01/07/19 03:39 151/74 01/07/19 03:00 71 24 151/75 (100) 90 Mechanical Ventilator 25.00 01/07/19 02:22 71 24 91 25 01/07/19 02:00 77 23 152/74 (100) 91 Mechanical Ventilator 25.00 01/07/19 01:11 173/91 01/07/19 01:00 69 23 173/91 (118) 92 Mechanical Ventilator 25.00 01/07/19 01:00 69 01/07/19 00:00 71 23 170/88 (115) 91 Mechanical Ventilator 25.00 01/07/19 00:00 99.6 01/07/19 00:00 91 Mechanical Ventilator 25 01/06/19 23:00 70 24 164/83 (110) 91 Mechanical Ventilator 25.00 01/06/19 22:49 69 24 91 25 01/06/19 22:00 70 24 165/86 (112) 91 Mechanical Ventilator 25.00 01/06/19 21:00 87 14 167/90 (115) 93 Mechanical Ventilator 25.00 01/06/19 20:48 158/79 01/06/19 20:14 78 24 92 25 01/06/19 20:00 91 Mechanical Ventilator 25 01/06/19 20:00 75 24 167/85 (112) 92 Mechanical Ventilator 25.00 01/06/19 19:52 98.6 01/06/19 19:00 75 24 162/82 (108) 92 Mechanical Ventilator 25.00 01/06/19 19:00 75 01/06/19 18:30 71 24 92 25 01/06/19 18:00 93 Mechanical Ventilator 25 01/06/19 18:00 71 23 162/83 (109) 92 Mechanical Ventilator 25.00 01/06/19 17:00 71 24 160/82 (108) 92 Mechanical Ventilator 25.00 01/06/19 16:44 73 01/06/19 16:00 73 23 156/78 (104) 92 Mechanical Ventilator 25.00 01/06/19 16:00 93 Mechanical Ventilator 25 01/06/19 15:50 98.9 01/06/19 15:00 72 10 164/81 (108) 93 Mechanical Ventilator 25.00 01/06/19 14:16 71 24 92 25 01/06/19 14:00 73 7 168/83 (111) 92 Mechanical Ventilator 25.00 01/06/19 13:00 72 24 162/83 (109) 89 Mechanical Ventilator 25.00 01/06/19 12:47 70 01/06/19 12:33 70 01/06/19 12:00 93 Mechanical Ventilator 25 01/06/19 12:00 71 23 164/85 (111) 93 Mechanical Ventilator 25.00 01/06/19 11:25 98.9 01/06/19 11:00 72 23 163/84 (110) 92 Mechanical Ventilator 25.00 01/06/19 10:26 71 01/06/19 10:17 70 24 92 25 01/06/19 10:00 71 13 159/83 (108) 92 Mechanical Ventilator 25.00 01/06/19 09:00 84 14 163/89 (113) 91 Mechanical Ventilator 25.00 01/06/19 08:00 93 Mechanical Ventilator 25 01/06/19 08:00 67 24 153/82 (105) 92 Mechanical Ventilator 25.00 01/06/19 08:00 98.8 01/06/19 07:00 68 01/06/19 07:00 69 24 162/87 (112) 93 Mechanical Ventilator 25.00 I & O 01/07/19 07:00 Intake Total 180 ml Output Total 6590 ml Balance -6410 ml Height & Weight Height: 6'0.00" Weight: 301lbs. 6.0oz. 136.695973mh; 34.8 BMI Method:Stated General Appearance: No Apparent Distress, Other (sedated on vent ) HEENT: Normal ENT Inspection, Moist Mucous Membranes Neck: Full Range of Motion, Normal Inspection Respiratory: Accessory Muscle Use, Other (Bilateral rales noted with scattered rhonchi due to the midlung ham posteriorly with rhonchi noted anteriorly no wheezing appreciated.) Cardiovascular: Regular Rate, Rhythm, No Edema, No Gallop, No JVD, No Murmur ( Difficult to hear over respiratory noises and mechanical ventilation however), Normal Peripheral Pulses Capillary Refill: Less Than 3 Seconds Gastrointestinal: normal bowel sounds, non tender, soft, no organomegaly, no pulsatile mass Extremity: Normal Capillary Refill, Normal Inspection, Normal Range of Motion, Non Tender, No Calf Tenderness, No Pedal Edema Neurologic/Psychiatric: Other (Sedated on vent but had been moving all extremities with no focal findings being appreciated prior to mechanical ventilation) Skin: Damp, Pallor Results Lab Laboratory Tests 01/06/19 03:35 01/07/19 03:06 Assessment/Plan Assessment/Plan Acute respiratory failure -- much worse -Continue ventilator care -Propofol, Fentanyl precedex -TF - Pulmonary edema with anasarca -Bumex IV x1 CP with NSTEMI and EKG changes s/p cath -Cardiology following -Morphine CT scan shows possible PE -- I am not convinced this is PE -Lovenox was started -Bilateral dopplers -- neg Severe sepsis secondary to pneumonia -Persistent fever, leukocytosis is improving -Repan cultures pending -Continue Abx -Pt is on severe sepsis protocol -Reilly culture, check UA -MRSA swab -Start Rocephin Metabolic lactic acidosis - improving -IVF -Monitor COPDAE -SoluCortef 100 to IV q12 -- change to solumedrol -SVNs -Singulair, Claritin Hx of COPD with persistent tobacco use -education -oxygen -monitor Probable JAC -Out pt testing JOSE LUIS MONTOYA DO January 07, 2019 06:18
[2019-01-07] MEDS ORDERED: PROPOFOL DRIP (ICU) 0 ML IV ONE (06:22)
--- NOTE | 2019-01-07 06:24 | Pulmonary Progress Note ---
Subjective Time Seen by a Provider: 06:19 Subjective/Events-last exam Sedated on vent Sepsis Event Evaluation Height, Weight, BMI Height: 6'0.00" Weight: 301lbs. 6.0oz. 136.835348np; 34.8 BMI Method:Stated Focused Exam Lactate Level 01/04/19 09:00: Lactic Acid Level 2.07*H Exam Exam Vital Signs Date Time Temp Pulse Resp B/P (MAP) Pulse Ox O2 Delivery O2 Flow Rate FiO2 01/07/19 05:00 68 23 158/81 (106) 92 Mechanical Ventilator 25.00 01/07/19 04:00 98.5 01/07/19 04:00 91 Mechanical Ventilator 25 01/07/19 04:00 69 23 151/78 (102) 91 Mechanical Ventilator 25.00 01/07/19 03:39 151/74 01/07/19 03:00 71 24 151/75 (100) 90 Mechanical Ventilator 25.00 01/07/19 02:22 71 24 91 25 01/07/19 02:00 77 23 152/74 (100) 91 Mechanical Ventilator 25.00 01/07/19 01:11 173/91 01/07/19 01:00 69 23 173/91 (118) 92 Mechanical Ventilator 25.00 01/07/19 01:00 69 01/07/19 00:00 71 23 170/88 (115) 91 Mechanical Ventilator 25.00 01/07/19 00:00 99.6 01/07/19 00:00 91 Mechanical Ventilator 25 01/06/19 23:00 70 24 164/83 (110) 91 Mechanical Ventilator 25.00 01/06/19 22:49 69 24 91 25 01/06/19 22:00 70 24 165/86 (112) 91 Mechanical Ventilator 25.00 01/06/19 21:00 87 14 167/90 (115) 93 Mechanical Ventilator 25.00 01/06/19 20:48 158/79 01/06/19 20:14 78 24 92 25 01/06/19 20:00 91 Mechanical Ventilator 25 01/06/19 20:00 75 24 167/85 (112) 92 Mechanical Ventilator 25.00 01/06/19 19:52 98.6 01/06/19 19:00 75 24 162/82 (108) 92 Mechanical Ventilator 25.00 01/06/19 19:00 75 01/06/19 18:30 71 24 92 25 01/06/19 18:00 93 Mechanical Ventilator 25 01/06/19 18:00 71 23 162/83 (109) 92 Mechanical Ventilator 25.00 01/06/19 17:00 71 24 160/82 (108) 92 Mechanical Ventilator 25.00 01/06/19 16:44 73 01/06/19 16:00 73 23 156/78 (104) 92 Mechanical Ventilator 25.00 01/06/19 16:00 93 Mechanical Ventilator 25 01/06/19 15:50 98.9 01/06/19 15:00 72 10 164/81 (108) 93 Mechanical Ventilator 25.00 01/06/19 14:16 71 24 92 25 01/06/19 14:00 73 7 168/83 (111) 92 Mechanical Ventilator 25.00 01/06/19 13:00 72 24 162/83 (109) 89 Mechanical Ventilator 25.00 01/06/19 12:47 70 01/06/19 12:33 70 01/06/19 12:00 93 Mechanical Ventilator 25 01/06/19 12:00 71 23 164/85 (111) 93 Mechanical Ventilator 25.00 01/06/19 11:25 98.9 01/06/19 11:00 72 23 163/84 (110) 92 Mechanical Ventilator 25.00 01/06/19 10:26 71 01/06/19 10:17 70 24 92 25 01/06/19 10:00 71 13 159/83 (108) 92 Mechanical Ventilator 25.00 01/06/19 09:00 84 14 163/89 (113) 91 Mechanical Ventilator 25.00 01/06/19 08:00 93 Mechanical Ventilator 25 01/06/19 08:00 67 24 153/82 (105) 92 Mechanical Ventilator 25.00 01/06/19 08:00 98.8 01/06/19 07:00 68 01/06/19 07:00 69 24 162/87 (112) 93 Mechanical Ventilator 25.00 I & O 01/07/19 07:00 Intake Total 180 ml Output Total 6590 ml Balance -6410 ml Height & Weight Height: 6'0.00" Weight: 301lbs. 6.0oz. 136.314121hr; 34.8 BMI Method:Stated General Appearance: No Apparent Distress, Other (sedated on vent) HEENT: Normal ENT Inspection, Moist Mucous Membranes Neck: Full Range of Motion, Normal Inspection Respiratory: Accessory Muscle Use, Other (Bilateral rales noted with scattered rhonchi due to the midlung ham posteriorly with rhonchi noted anteriorly no wheezing appreciated.) Cardiovascular: Regular Rate, Rhythm, No Edema, No Gallop, No JVD, No Murmur ( Difficult to hear over respiratory noises and mechanical ventilation however), Normal Peripheral Pulses Capillary Refill: Less Than 3 Seconds Gastrointestinal: normal bowel sounds, non tender, soft, no organomegaly, no pulsatile mass Extremity: Normal Capillary Refill, Normal Inspection, Normal Range of Motion, Non Tender, No Calf Tenderness, No Pedal Edema Neurologic/Psychiatric: Other (Sedated on vent but had been moving all extremities with no focal findings being appreciated prior to mechanical ventilation) Skin: Damp, Pallor Results Lab Laboratory Tests 01/06/19 03:35 01/07/19 03:06 Assessment/Plan Assessment/Plan Acute respiratory failure -- much worse -Continue ventilator care -Will D/C sedation and attempt extubation -TF - Pulmonary edema with anasarca -Will give lasix x 1 CP with NSTEMI and EKG changes s/p cath -Cardiology following -Morphine CT scan shows possible PE -- I am not convinced this is PE -Lovenox was started -Bilateral dopplers -- neg Severe sepsis secondary to pneumonia -Persistent fever, leukocytosis is improving -Repan cultures pending -Continue Abx -Pt is on severe sepsis protocol -Reilly culture, check UA -MRSA swab -Start Rocephin Metabolic lactic acidosis - improving -IVF -Monitor COPDAE -SoluCortef 100 to IV q12 -- change to solumedrol -SVNs -Singulair, Claritin Hx of COPD with persistent tobacco use -education -oxygen -monitor Probable JAC -Out pt testing UPDATE: I have been in room multiple times secondary to pt waking up from sedation agitated. Family at bedside and I have discussed pt's current condition in depth. Family is very nice and understanding of pt's current condition. One of her Son's in an ED doctor. PT is currently extubated. She is lethargic however will follow some commands. She is currently requiring BIPAP. I am going to check ABG to make sure she's not retaining C02. Haldol, morphine and Ativan given secondary to agitation. Total time spent with pt today is 120min. JOSE LUIS MONTOYA DO January 07, 2019 06:24
[2019-01-07] MEDS: CEFEPIME INJECTION 1,000 MG in WATER (STERILE) FOR INJECTION 10 ML IV SCH ×4 (06:38→23:53)
[2019-01-07] MEDS: inSUlin ASPART (NovoLOG) 1 UNIT/0.01 ML (CHARGE PER UNIT) SC SCH ×4 (06:38→23:52)
[2019-01-07] MEDS: methylPREDNISolone 40 MG/ML (Solu-MEDROL) VIAL IV SCH ×4 (06:38→23:53)
--- NOTE | 2019-01-07 06:45 | NUR ---
PT EXTUBATED AND PLACED ON VAPOTHERM 21LPM AND 50% FIO2, TOLERATING WELL WITH FAMILY AT BEDSIDE
[2019-01-07] MEDS: POTASSIUM CL 10MEQ/50ML IVPB 50 ML IV SCH ×4 (07:00→08:57)
--- NOTE | 2019-01-07 07:45 | NUR ---
DISCUSSED WITH DR MONTOYA THE HIGH VOLUME NEEDED FOR BACTRIM IV, OK TO CHANGE DOSE TO 480MG/500 ML D5W, AND WILL RE-EVALUATE DOSING/ROUTE ONCE PATIENT ABLE TO SWALLOW.
[2019-01-07] MEDS: PANTOPRAZOLE 40 MG (PROTONIX) VIAL IV SCH (07:51)
--- NOTE | 2019-01-07 08:03 | Diagnostic Imaging Report ---
INDICATION: Respiratory distress. Comparison with 01/06/2019. FINDINGS: ET tube and NG tube remain in good position. There continues to be infiltrate in right perihilar region with some atelectasis. Left lung is well-aerated and clear. The heart is mildly enlarged. No pulmonary edema. No pneumothorax or pleural effusion. IMPRESSION: Tubes and lines remain in good position. Persistent right perihilar atelectasis and infiltrate. Dictated by: Dictated on workstation # [id number]
[2019-01-07] MEDS: SULFAMETHOXAZOLE/TRIMETHO INJ 480 MG in D5W 500 ML IV SOLUTION 500 ML IV SCH ×3 (08:55→19:39)
[2019-01-07] MEDS: TICAGRELOR 90 MG TABLET (BRILINTA) PO SCH ×2 (09:27→23:25)
--- NOTE | 2019-01-07 09:34 | Progress Note-Hospitalist ---
Subjective HPI/CC On Admission Date Seen by Provider: January 07, 2019 Time Seen by Provider: 09:30 The patient is a 63-year-old white female with no previous history of cardiovascular disease noted the onset of rather sharp precordial chest pain that radiated to both arms roughly 3 hours prior to presentation to the emergency room. She had diaphoresis and shortness of breath with this. Upon presentation to the emergency room she appeared to be in acute distress with elevated troponin level and some ST depression in the anterior leads somewhat difficult to interpret as the patient was shaking. Initially her chest was clear and CTA study of the chest revealed no definitive evidence for pulmonary embolism or pneumonia. Patient was admitted to intensive care unit where she had progressive shortness of breath with ABG compatible acute respiratory failure for which she was intubated by Dr. Riggs and underwent emergent cardiac catheterization where the pulmonary report was patient had to critical stenosis of to obtuse marginal coronary arteries for which successful drug- eluting stents were placed. Currently the patient is on pressure support with mean arterial pressures greater than 65 sedated on mechanical ventilation. Subjective/Events-last exam Patient has been extubated Very agitated so will initiate Ativan and will titrate down on Precedex if needed if becomes oversedated Entire family at the bedside Additional catheterization with intervention will be required Patient confused Will monitor closely Review of Systems General: Fatigue Pulmonary: Dyspnea Neurological: Confusion Objective Exam Vital Signs Vital Signs Date Time Temp Pulse Resp B/P (MAP) Pulse Ox O2 Delivery O2 Flow Rate FiO2 01/07/19 10:09 92 Vapotherm 21.00 50 01/07/19 10:00 84 47 158/83 (108) 01/07/19 04:00 98.5 Capillary Refill : Less Than 3 Seconds General Appearance: No Apparent Distress, WD/WN, Chronically ill, Obese HEENT: PERRL/EOMI, Normal ENT Inspection, Moist Mucous Membranes Neck: Full Range of Motion, Normal Inspection Respiratory: Accessory Muscle Use, Other (Bilateral rales noted with scattered rhonchi due to the midlung ham posteriorly with rhonchi noted anteriorly no wheezing appreciated.) Cardiovascular: Regular Rate, Rhythm, No Edema, No Gallop, No JVD, No Murmur, Normal Peripheral Pulses Gastrointestinal: Normal Bowel Sounds, No Organomegaly, No Pulsatile Mass, Non Tender, Soft Extremity: Normal Capillary Refill, Normal Inspection, Normal Range of Motion, Non Tender, No Calf Tenderness, No Pedal Edema Neurologic/Psychiatric: Alert, 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, lighting designer II-XII Norm as Tested, Disoriented, Other (Sedated on vent but had been moving all extremities with no focal findings being appreciated prior to mechanical ventilation) Skin: Damp, Pallor Results/Procedures Lab Laboratory Tests 01/07/19 03:06 Patient resulted labs reviewed. Assessment/Plan Assessment and Plan Assess & Plan/Chief Complaint Assessment: Vent dependent respiratory failure now extubated Respiratory failure Non-ST elevation CO status post stent placement but needs additional interventions Sepsis Obesity Diabetes mellitus Current smoker Plan: Smoking cessation Diabetes management with insulin Antibiotics Ativan for agitation Monitor closely Critical Care Critically Ill Patient Diagnosis/Problems Diagnosis/Problems (1) Respiratory failure Status: Acute Qualifiers: Chronicity: unspecified Respiratory failure complication: unspecified whether with hypoxia or hypercapnia Qualified Codes: J96.90 - Respiratory failure, unspecified, unspecified whether with hypoxia or hypercapnia (2) Ventilator dependence Status: Resolved Resolution Date/Time: 01/07/19 @ 11:09 (3) Obesity Status: Chronic Qualifiers: Obesity type: due to excess calories Obesity classification: adult class 3 (BMI >= 40) Serious obesity comorbidity presence: with serious comorbidity Body mass index: BMI 40.0-44.9 Qualified Codes: E66.01 - Morbid (severe) obesity due to excess calories; Z68.41 - Body mass index (BMI) 40.0-44.9, adult (4) Smoker Status: Chronic (5) Diabetes mellitus Status: Chronic Qualifiers: Diabetes mellitus type: type 2 Diabetes mellitus extermination supervisor insulin use: without extermination supervisor use Diabetes mellitus complication status: with unspecified complications Qualified Codes: E11.8 - Type 2 diabetes mellitus with unspecified complications (6) Agitation Status: Acute (7) Confusion Status: Acute (8) NSTEMI, initial episode of care Status: Acute (9) Chest pain Status: Acute Qualifiers: Chest pain type: chest pain due to myocardial ischemia Ischemic chest pain type: unspecified angina pectoris type Qualified Codes: I25.9 - Chronic ischemic heart disease, unspecified (10) Elevated brain natriuretic peptide (BNP) level Status: Acute (11) Leukocytosis Status: Acute Qualifiers: Leukocytosis type: leukemoid reaction Qualified Codes: D72.823 - Leukemoid reaction Clinical Quality Measures AMI/AHF: ASA po Prior to arrival: No DVT/VTE Risk/Contraindication: Risk Factor Score Per Nursin RFS Level Per Nursing on Admit: 4+=Very High YOGESH STALLWORTH DO January 07, 2019 09:34
[2019-01-07] MEDS ORDERED: LORazepam INJ 2 MG/ML (ATIVAN) VIAL ONE (09:47)
--- NOTE | 2019-01-07 09:57 | NUR ---
I spoke to Dr Riggs and the RN Prem Rogers about placing patient in contact isolation for her MDRO in her sputum. Patient resting quietly with family at bedside.
[2019-01-07] MEDS: meTOprolol TARTRATE 25 MG (LOPRESSOR) TABLET GT SCH ×2 (10:03→23:25)
[2019-01-07] MEDS: ASPIRIN E.C. 81 MG (ECOTRIN) TAB PO SCH (10:04)
[2019-01-07] MEDS: LORATADINE (CLARITIN) 10 MG TAB PO SCH (10:04)
[2019-01-07] MEDS: lisINopril 5 MG (PRINIVIL) TABLET PO SCH (10:04)
[2019-01-07] MEDS ORDERED: HALOPERIDOL 5 MG/ML (HALDOL) AMP ONE (11:53)
[2019-01-07] MEDS ORDERED: morphine INJ 4 MG/ML 1 ML (VIAL/SYRINGE) ONE (11:55)
[2019-01-07] MEDS: ENOXAPARIN 40 MG/0.4 ML (LOVENOX) SYR SC SCH ×2 (12:20→23:25)
--- NOTE | 2019-01-07 12:21 | Cardiology Progress Note ---
Cardiology SOAP Progress Note Subjective: Patient is agitated. However not complaining of chest pain. Objective: I&O/Vital Signs 01/07/19 01/07/19 01/07/19 01/07/19 01:11 02:00 02:22 03:00 Pulse 77 71 71 Resp 23 24 24 B/P (MAP) 173/91 152/74 (100) 151/75 (100) Pulse Ox 91 91 90 O2 Delivery Mechanical Ventilator Mechanical Ventilator O2 Flow Rate 25.00 25.00 FiO2 25 01/07/19 01/07/19 01/07/19 01/07/19 03:39 04:00 04:00 04:00 Temp 98.5 Pulse 69 Resp 23 B/P (MAP) 151/74 151/78 (102) Pulse Ox 91 91 O2 Delivery Mechanical Ventilator Mechanical Ventilator O2 Flow Rate 25.00 FiO2 25 01/07/19 01/07/19 01/07/19 01/07/19 05:00 06:00 07:00 07:00 Pulse 68 68 96 97 Resp 23 23 21 B/P (MAP) 158/81 (106) 165/78 (107) 139/80 (99) Pulse Ox 92 92 95 O2 Delivery Mechanical Ventilator Mechanical Ventilator Vapotherm O2 Flow Rate 25.00 25.00 50.00 01/07/19 01/07/19 01/07/19 01/07/19 08:00 08:00 09:00 10:00 Pulse 88 86 84 Resp 39 12 47 B/P (MAP) 145/80 (101) 159/82 (107) 158/83 (108) Pulse Ox 93 93 90 O2 Delivery Vapotherm Vapotherm Vapotherm Vapotherm O2 Flow Rate 21.00 50.00 50.00 50.00 FiO2 50 01/07/19 01/07/19 01/07/19 01/07/19 10:09 11:00 12:00 12:00 Pulse 85 75 Resp 31 28 B/P (MAP) 158/87 (110) 161/89 (113) Pulse Ox 92 91 75 93 O2 Delivery Vapotherm Vapotherm Vapotherm Vapotherm O2 Flow Rate 21.00 50.00 50.00 21.00 FiO2 50 70 01/07/19 12:02 Temp 96.1 01/06/19 23:59 Intake Total 120 ml Output Total 1750 ml Balance -1630 ml Weight (Pounds): 301 Weight (Ounces): 6.0 Weight (Calculated Kilograms): 136.186972 Constitutional: appears stated age, well-developed, well-nourished Respiratory: No accessory muscle use, No respiratory distress, No chest tender , No chest expansion is symmetric; chest is bilaterally symmetric; No lungs clear to percussion; lungs clear to auscultation; No crackles, No rhonchi, No rales, No stridor, No wheezing, No pleural rub, No other Cardiovascular: regular rate-rhythm; No irregularly irregular, No extra beats, No parasternal heave is noted, No JVD, No edema, No bradycardia, No tachycardia , No point of maximal impulse, No cardiac thrills are palpable; S1 and S2; No gallop/S3, No gallop/S4, No diastolic murmur, No systolic murmur, No friction rub, No click, No other Gastrointestional: No tender, No soft, No round, No distended, No pulsatile mass, No organomegaly, No guarding, No rebound, No tenderness, No hernia, No mass, No audible bowel sounds, No abnormal bowel sounds, No abdominal bruits, No spleenomegaly, No other Extremities: No normal range of motion, No non-tender, No normal inspection, No pedal edema, No calf tenderness, No normal capillary refill, No pelvis stable , No calf tenderness, No inflammation, No pedal edema, No slow capillary refill , No swelling, No other, No abrasion, No clubbing, No cyanosis, No ecchymosis, No laceration, No no lower extremity edema bilateral, No significant edema, No tenderness, No wound Neurologic/Psychiatric: disoriented x 3 Skin: No normal color, No warm/dry, No cyanosis, No cool, No diaphoresis, No damp, No ecchymosis, No jaundice, No mottled, No pallor, No rash, No tattoos/ piercings, No ulcerations, No rash on exposed areas, No ulcerations on exposed areas, No other Results/Procedures: Labs Laboratory Tests 01/06/19 17:57: Glucometer 224H 01/06/19 23:29: Glucometer 210H 01/07/19 03:06: White Blood Count 15.1H, Red Blood Count 4.00L, Hemoglobin 12.6, Hematocrit 37, Mean Corpuscular Volume 94, Mean Corpuscular Hemoglobin 32, Mean Corpuscular Hemoglobin Concent 34, Red Cell Distribution Width 13.1, Platelet Count 190, Mean Platelet Volume 10.3, Neutrophils (%) (Auto) 89H, Lymphocytes (%) (Auto) 4L , Monocytes (%) (Auto) 7, Eosinophils (%) (Auto) 0, Basophils (%) (Auto) 0, Neutrophils # (Auto) 13.5H, Lymphocytes # (Auto) 0.7L, Monocytes # (Auto) 1.0, Eosinophils # (Auto) 0.0, Basophils # (Auto) 0.0, Neutrophils % (Manual) 87, Lymphocytes % (Manual) 5, Monocytes % (Manual) 8, Sodium Level 139, Potassium Level 3.9, Chloride Level 105, Carbon Dioxide Level 22, Anion Gap 12, Blood Urea Nitrogen 18, Creatinine 0.66, Estimat Glomerular Filtration Rate > 60, BUN/ Creatinine Ratio 27, Glucose Level 201H, Calcium Level 8.0L, Phosphorus Level 2.7, Magnesium Level 2.2, B-Type Natriuretic Peptide 894.7H 01/07/19 03:20: Blood Gas Puncture Site LEFT RADIAL, Blood Gas Patient Temperature 98.5, Arterial Blood pH 7.52H, Arterial Blood Partial Pressure CO2 34L, Arterial Blood Partial Pressure O2 65L, Arterial Blood HCO3 27, Arterial Blood Total CO2 28.2, Arterial Blood Oxygen Saturation 93L, Arterial Blood Base Excess 4.2H, Denny Test POSITIVE, Blood Gas Ventilator Setting YES, Blood Gas Inspired Oxygen 25% FIO2 01/07/19 12:13: Glucometer 175H Microbiology 01/05/19 Blood Culture - Preliminary, Resulted No growth 01/05/19 Gram Stain - Final, Resulted 01/05/19 Sputum Culture - Preliminary, Resulted Stenotrophomonas Maltophilia YEAST A/P: Assessment/Dx: NSTEMI, refractory to medical therapy. Acute respiratory failure, Active smoking, Diabetes, COPD Plan: Non-STEMI refractory to medical therapy, aspirin, Brilinta. 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 Proximal OM artery had severe stenosis with haziness and CHRIS 2 flow which is likely the culprit artery. 2 drug-eluting stents placed. LAD and RCA to be addressed later when the patient is much more stable. Hemodynamically stable, off pressors. The patient has sepsis with leukocytosis, respiratory acidosis, lactic acidosis , mild fever. Source is likely right lower lobe pneumonia. Improving sepsis, defer to Dr. Riggs. Acute respiratory failure, extubated this morning. Patient is agitated and disoriented. Sepsis, likely right lower lobe pneumonia. Broad-spectrum antibiotic. On cefepime and vancomycin. Active smoking, strongly recommended to quit on admission. Diabetes, deferred to the primary team. Critically ill patient. Thank you for your consultation. Please call me if you have any questions. Bety Mercado MD, FACP, FACC, FSCAI, FHRS, CCDS Interventional Cardiology Cardiac Electrophysiology Vascular Medicine and Endovascular Interventions Clinical Quality Measures AMI/AHF: ASA po Prior to arrival: Jc Cheatham MD January 07, 2019 12:21
--- NOTE | 2019-01-07 13:53 | Physician Query Clarification ---
PQ-Intro New Diagnosis Admission/Discharge Admission Date: January 01, 2019 at 18:35 Discharge Date: The medical record reflects the following clinical scenario: History/Risk Factors: Severe Sepsis due to pneumonia NSTEMI Clinical Findings: 01/03-BP 105/57 and 101/54, Lactic acid 4.32 rising to 5.40. Treatment: Vasopressors Do you feel that this patient met criteria for any of the following diagnoses? Question: What condition best reflects the above clinical scenario? Please document below. 1. Septic Shock 2. Cardiogenic shock 3. Other, with explanation of the clinical findings. 4. Clinically undetermined, no explanation for the clinical findings. PHYSICIAN RESPONSE What condition reflects above: 2 In responding to this query, please exercise your independent professional judgment. The purpose of this communication is to more accurately reflect the complexity of your patients condition. The fact that a question is asked does not imply that any particular answer is desired or expected. Thank you for your timely response to this clarification. Requestors name: Viola Ortega [facility] Phone # ext [phone] or [phone] THIS PHYSICIAN QUERY FORM IS A PERMANENT PART OF THE MEDICAL RECORD VIOLA ORTEGA January 07, 2019 13:53 EVITA JOSEPH MD January 09, 2019 12:31
[2019-01-07 14:31] LABS: ABG BASE EXCESS 3.9 MMOL/L (-2.5-2.5); ABG OXYGEN SATURATION 96 % (94-100); ABG PCO2 36 MMHG (35-45); ABG PH 7.49 (7.37-7.43); ABG PO2 76 MMHG (79-93); ABG TCO2 28.4 MMOL/L (21.0-31.0)
[2019-01-07 14:32] LABS: ALLENS TEST POSITIVE; INSPIRED O2 70% VAPOTHERM
[2019-01-07 14:33] LABS: PATIENT TEMP 98.1; VENTILATOR NO
[2019-01-07] MEDS: HALOPERIDOL 5 MG/ML (HALDOL) AMP IV PRN ×2 (18:10→23:53)
[2019-01-07] MEDS: morphine INJ 4 MG/ML 1 ML (VIAL/SYRINGE) IVP PRN (21:50)
[2019-01-07] MEDS: ATORVASTATIN 80 MG (LIPITOR) TABLET PO SCH (23:25)
[2019-01-07] MEDS: MONTELUKAST 10 MG (SINGULAIR) TAB PO SCH (23:25)
[2019-01-08] VITALS (26 sets, daily range): BP systolic 121–167; BP diastolic 49–98
[2019-01-08] MEDS: morphine INJ 4 MG/ML 1 ML (VIAL/SYRINGE) IVP PRN ×2 (01:32→08:06)
[2019-01-08] MEDS ORDERED: morphine INJ 4 MG/ML 1 ML (VIAL/SYRINGE) IV ONE (02:00)
[2019-01-08] MEDS: SULFAMETHOXAZOLE/TRIMETHO INJ 480 MG in D5W 500 ML IV SOLUTION 500 ML IV SCH ×4 (02:20→20:57)
[2019-01-08] MEDS: DEXMEDETOMIDINE INJECTION 1,000 MCG in NS (IVPB) 250 ML IV SCH ×4 (02:30→21:39)
[2019-01-08] MEDS: RT-ALBUTEROL/IPRATROPIUM 3 ML (DUONEB) VIAL INH SCH ×6 (03:08→22:19)
[2019-01-08 03:15] LABS: BASOPHILS % (AUTO) 0 % (0-10); EOSINOPHILS % (AUTO) 0 % (0-10); HEMATOCRIT 36 % (35-52); HEMOGLOBIN 12.1 G/DL (11.5-16.0); LYMPHOCYTES # (AUTO) 0.5 X 10^3 (1.0-4.0); LYMPHOCYTES % (AUTO) 3 % (12-44); MEAN CORPUSCULAR HEMOGLOBIN 32 PG (25-34); MEAN CORPUSCULAR HGB CONC 34 G/DL (32-36); MEAN CORPUSCULAR VOLUME 94 FL (80-99); MEAN PLATELET VOLUME 10.4 FL (7.4-10.4); MONOCYTES % (AUTO) 5 % (0-12); NEUTROPHILS # (AUTO) 18.5 X 10^3 (1.8-7.8); NEUTROPHILS % (AUTO) 93 % (42-75); PLATELET COUNT 184 10^3/uL (130-400)
[2019-01-08 03:36] LABS: BUN/CREATININE RATIO 22; CALCIUM 8.4 MG/DL (8.5-10.1); CARBON DIOXIDE 23 MMOL/L (21-32); CHLORIDE 100 MMOL/L (98-107); CREATININE SERUM 0.81 MG/DL (0.60-1.30); GFR ESTIMATED > 60; GLUCOSE 256 MG/DL (70-105); MAGNESIUM 2.2 MG/DL (1.8-2.4); POTASSIUM 3.8 MMOL/L (3.6-5.0); SODIUM 135 MMOL/L (135-145)
--- NOTE | 2019-01-08 04:30 | NUR ---
PT ROLLED OVER RAIL OF BED AND WENT TO FLOOR, 2 FAMILY MEMBERS IN ROOM. ASSISTED BACK TO BED WITH STAFF TIMES 5. PT DENIES ANY INJURIES OR COMPLAINTS OF PAIN. DR MONTOYA HERE AND NOTIFIED. GONZALEZ SALEH RN [employer] AWARE
--- NOTE | 2019-01-08 05:35 | Pulmonary Progress Note ---
Subjective Time Seen by a Provider: 07:34 Subjective/Events-last exam PT is still lethargic and confused. Sepsis Event Evaluation Height, Weight, BMI Height: 6'0.00" Weight: 301lbs. 6.0oz. 136.274432al; 34.8 BMI Method:Stated Exam Exam Vital Signs Date Time Temp Pulse Resp B/P (MAP) Pulse Ox O2 Delivery O2 Flow Rate FiO2 01/08/19 05:00 79 14 152/75 (100) 95 Vapotherm 60.00 11.00 01/08/19 04:31 84 158/81 (106) Vapotherm 60.00 11.00 01/08/19 04:00 93 Vapotherm 21.00 70 01/08/19 04:00 79 20 148/75 (99) Vapotherm 60.00 11.00 01/08/19 03:13 81 12 94 Vapotherm 60.00 11.00 01/08/19 03:09 97 Vapotherm 21.00 70 01/08/19 03:00 78 22 147/81 (103) 97 Vapotherm 70.00 15.00 01/08/19 02:00 80 22 143/49 (80) 96 Vapotherm 70.00 15.00 01/08/19 01:30 80 22 141/73 (95) 93 Vapotherm 70.00 15.00 01/08/19 01:04 80 22 92 Vapotherm 70.00 15.00 01/08/19 01:00 81 01/08/19 01:00 81 25 131/64 (86) 94 Vapotherm 50.00 21.00 01/08/19 00:00 80 22 154/82 (106) 95 Vapotherm 50.00 21.00 01/08/19 00:00 93 Vapotherm 21.00 70 01/08/19 00:00 99.0 01/07/19 23:00 79 7 139/70 (93) 96 Vapotherm 50.00 21.00 01/07/19 22:50 95 Vapotherm 21.00 70 01/07/19 22:00 76 27 138/70 (92) 95 Vapotherm 50.00 21.00 01/07/19 21:00 71 24 117/49 (71) 96 Vapotherm 50.00 21.00 01/07/19 20:00 98.2 01/07/19 20:00 93 Vapotherm 21.00 70 01/07/19 20:00 74 131/61 (84) 95 Vapotherm 50.00 21.00 01/07/19 19:00 74 01/07/19 19:00 74 133/70 (91) 93 Vapotherm 50.00 21.00 01/07/19 18:39 94 Vapotherm 21.00 70 01/07/19 18:00 74 22 128/74 (92) 91 Vapotherm 50.00 21.00 01/07/19 17:00 72 18 161/81 (107) 92 Vapotherm 50.00 21.00 01/07/19 16:09 98.2 01/07/19 16:00 79 22 151/82 (105) 95 Vapotherm 50.00 21.00 01/07/19 16:00 93 Vapotherm 21.00 70 01/07/19 15:00 74 18 158/85 (109) 94 Vapotherm 50.00 21.00 01/07/19 14:28 94 Vapotherm 21.00 70 01/07/19 14:00 75 22 161/90 (113) 93 Vapotherm 50.00 21.00 01/07/19 13:00 89 20 165/92 (116) 92 Vapotherm 50.00 21.00 01/07/19 13:00 73 01/07/19 12:02 96.1 01/07/19 12:00 93 Vapotherm 21.00 70 01/07/19 12:00 75 28 161/89 (113) 75 Vapotherm 50.00 01/07/19 11:00 85 31 158/87 (110) 91 Vapotherm 50.00 01/07/19 10:09 92 Vapotherm 21.00 50 01/07/19 10:00 84 47 158/83 (108) 90 Vapotherm 50.00 01/07/19 09:00 86 12 159/82 (107) 93 Vapotherm 50.00 01/07/19 08:00 88 39 145/80 (101) Vapotherm 50.00 01/07/19 08:00 93 Vapotherm 21.00 50 01/07/19 07:00 97 21 139/80 (99) 95 Vapotherm 50.00 01/07/19 07:00 96 01/07/19 06:00 68 23 165/78 (107) 92 Mechanical Ventilator 25.00 I & O 01/08/19 07:00 Intake Total 150 ml Output Total 3850 ml Balance -3700 ml Height & Weight Height: 6'0.00" Weight: 301lbs. 6.0oz. 136.684365cw; 34.8 BMI Method:Stated General Appearance: No Apparent Distress, Other (sedated on vent) HEENT: Normal ENT Inspection, Moist Mucous Membranes Neck: Full Range of Motion, Normal Inspection Respiratory: Accessory Muscle Use, Other (Bilateral rales noted with scattered rhonchi due to the midlung ham posteriorly with rhonchi noted anteriorly no wheezing appreciated.) Cardiovascular: Regular Rate, Rhythm, No Edema, No Gallop, No JVD, No Murmur ( Difficult to hear over respiratory noises and mechanical ventilation however), Normal Peripheral Pulses Capillary Refill: Less Than 3 Seconds Gastrointestinal: normal bowel sounds, non tender, soft, no organomegaly, no pulsatile mass Extremity: Normal Capillary Refill, Normal Inspection, Normal Range of Motion, Non Tender, No Calf Tenderness, No Pedal Edema Neurologic/Psychiatric: Alert, Other (Sedated on vent but had been moving all extremities with no focal findings being appreciated prior to mechanical ventilation) Skin: Normal Color, Warm/Dry, Damp, Pallor Results Lab Laboratory Tests 01/07/19 03:06 01/08/19 03:10 Assessment/Plan Assessment/Plan Acute respiratory failure -- much worse - Vapotherm Pulmonary edema with anasarca -Continue Lasix daily 40mg CP with NSTEMI and EKG changes s/p cath -Cardiology following -Morphine CT scan shows possible PE -- I am not convinced this is PE -Lovenox was started -Bilateral dopplers -- neg Metabolic encephalopathy secondary to meds and medical condition Severe sepsis secondary to pneumonia with Stenotrophomonas - present at admission --Pt was septic at admission from pneumonia. -Continue Abx cefepime, Eraxis, Bactrim -Pt is on severe sepsis protocol -Reilly culture, check UA -MRSA swab - is negative Metabolic lactic acidosis - improving -IVF -Monitor COPDAE - solumedrol - decrease to Q12 -SVNs -Singulair, Claritin Hx of COPD with persistent tobacco use -education -oxygen -monitor Probable JAC -Out pt testing JOSE LUIS MONTOYA DO January 08, 2019 05:35
[2019-01-08] MEDS ORDERED: POTASSIUM CL 10MEQ/50ML IVPB 200 ML IV ONE (05:56)
[2019-01-08] MEDS: CEFEPIME INJECTION 1,000 MG in WATER (STERILE) FOR INJECTION 10 ML IV SCH ×3 (06:18→18:18)
[2019-01-08] MEDS: POTASSIUM CL 10MEQ/50ML IVPB 50 ML IV SCH ×3 (06:18→08:16)
[2019-01-08] MEDS: inSUlin ASPART (NovoLOG) 1 UNIT/0.01 ML (CHARGE PER UNIT) SC SCH ×3 (06:18→18:18)
--- NOTE | 2019-01-08 06:51 | Diagnostic Imaging Report ---
Clinical indication: Followup sepsis, non-STEMI ICU care. Exam: Portable chest x-ray upright view. Comparison: Portable chest x-ray dated 01/07/2019. Findings: There has been interval development of patchy bilateral lung infiltrates (right side more than the left). There is blunting of both costophrenic angle regions and small pleural effusions can't be excluded. There is no pneumothorax. Pulmonary vasculature is partially obscured, but does not appear significantly congested. There is mild cardiomegaly. Right PICC line seen in stable position. There is interval removal of the ET tube and feeding tube. Impression: 1: There is interval development of diffuse bilateral lung infiltrates (right side more than the left). 2: Small bilateral pleural effusions can't be excluded. Dictated by: Dictated on workstation # [id number]
[2019-01-08] MEDS: PANTOPRAZOLE 40 MG (PROTONIX) VIAL IV SCH (08:06)
[2019-01-08] MEDS: meTOprolol TARTRATE 25 MG (LOPRESSOR) TABLET GT SCH ×2 (08:06→20:59)
[2019-01-08] MEDS: methylPREDNISolone 40 MG/ML (Solu-MEDROL) VIAL IV SCH ×2 (08:06→20:59)
[2019-01-08] MEDS: TICAGRELOR 90 MG TABLET (BRILINTA) PO SCH ×2 (08:06→21:01)
[2019-01-08] MEDS: LORATADINE (CLARITIN) 10 MG TAB PO SCH (08:06)
[2019-01-08] MEDS: lisINopril 5 MG (PRINIVIL) TABLET PO SCH (08:08)
[2019-01-08] MEDS: ASPIRIN E.C. 81 MG (ECOTRIN) TAB PO SCH (08:08)
[2019-01-08] MEDS ORDERED: FUROSEMIDE 40 MG/4 ML INJ (LASIX) IVP SCH ×2 (09:00→21:00)
--- NOTE | 2019-01-08 10:01 | Progress Note-Hospitalist ---
Subjective HPI/CC On Admission Date Seen by Provider: January 08, 2019 Time Seen by Provider: 09:15 The patient is a 63-year-old white female with no previous history of cardiovascular disease noted the onset of rather sharp precordial chest pain that radiated to both arms roughly 3 hours prior to presentation to the emergency room. She had diaphoresis and shortness of breath with this. Upon presentation to the emergency room she appeared to be in acute distress with elevated troponin level and some ST depression in the anterior leads somewhat difficult to interpret as the patient was shaking. Initially her chest was clear and CTA study of the chest revealed no definitive evidence for pulmonary embolism or pneumonia. Patient was admitted to intensive care unit where she had progressive shortness of breath with ABG compatible acute respiratory failure for which she was intubated by Dr. Riggs and underwent emergent cardiac catheterization where the pulmonary report was patient had to critical stenosis of to obtuse marginal coronary arteries for which successful drug- eluting stents were placed. Currently the patient is on pressure support with mean arterial pressures greater than 65 sedated on mechanical ventilation. Subjective/Events-last exam Delirium continues Hypoxia stable Labs reviewed Meds reviewed Family at bedside along with sitter due to high risk for falling out of bed CXR reviewed Review of Systems General: Fatigue Pulmonary: Dyspnea Neurological: Confusion Objective Exam Vital Signs Vital Signs Date Time Temp Pulse Resp B/P (MAP) Pulse Ox O2 Delivery O2 Flow Rate FiO2 01/08/19 09:00 68 9 150/87 (108) 96 Vapotherm 50.00 9.00 01/08/19 08:00 50 01/08/19 00:00 99.0 Capillary Refill : Less Than 3 Seconds General Appearance: WD/WN, Chronically ill, Mild Distress, Obese HEENT: Normal ENT Inspection, Moist Mucous Membranes Neck: Full Range of Motion, Normal Inspection Respiratory: Accessory Muscle Use, Crackles, Decreased Breath Sounds Cardiovascular: Regular Rate, Rhythm, No Edema, No Gallop, No JVD, No Murmur ( Difficult to hear over respiratory noises and mechanical ventilation however), Normal Peripheral Pulses Gastrointestinal: Normal Bowel Sounds, No Organomegaly, No Pulsatile Mass, Non Tender, Soft Extremity: Normal Capillary Refill, Normal Inspection, Normal Range of Motion, Non Tender, No Calf Tenderness, No Pedal Edema Neurologic/Psychiatric: Alert, No Motor/Sensory Deficits, interventional radiology technologist II-XII Norm as Tested, Disoriented, Other (Sedated on vent but had been moving all extremities with no focal findings being appreciated prior to mechanical ventilation) Skin: Normal Color, Warm/Dry, Damp, Pallor Results/Procedures Lab Laboratory Tests 01/08/19 03:10 Patient resulted labs reviewed. Assessment/Plan Assessment and Plan Assess & Plan/Chief Complaint Assessment: Acute delirium Vent dependent respiratory failure now extubated Respiratory failure Non-ST elevation NV status post stent placement but needs additional interventions Sepsis Obesity Diabetes mellitus Current smoker Plan: Smoking cessation Diabetes management with insulin Antibiotics Ativan for agitation Monitor closely Delirium support Critical Care Critically Ill Patient Diagnosis/Problems Diagnosis/Problems (1) Delirium Status: Acute (2) Respiratory failure Status: Acute Qualifiers: Chronicity: unspecified Respiratory failure complication: unspecified whether with hypoxia or hypercapnia Qualified Codes: J96.90 - Respiratory failure, unspecified, unspecified whether with hypoxia or hypercapnia (3) Ventilator dependence Status: Resolved Resolution Date/Time: 01/07/19 @ 11:09 (4) Obesity Status: Chronic Qualifiers: Obesity type: due to excess calories Obesity classification: adult class 3 (BMI >= 40) Serious obesity comorbidity presence: with serious comorbidity Body mass index: BMI 40.0-44.9 Qualified Codes: E66.01 - Morbid (severe) obesity due to excess calories; Z68.41 - Body mass index (BMI) 40.0-44.9, adult (5) Smoker Status: Chronic (6) Diabetes mellitus Status: Chronic Qualifiers: Diabetes mellitus type: type 2 Diabetes mellitus fpc insulin use: without fpc use Diabetes mellitus complication status: with unspecified complications Qualified Codes: E11.8 - Type 2 diabetes mellitus with unspecified complications (7) Agitation Status: Acute (8) Confusion Status: Acute (9) NSTEMI, initial episode of care Status: Acute (10) Chest pain Status: Acute Qualifiers: Chest pain type: chest pain due to myocardial ischemia Ischemic chest pain type: unspecified angina pectoris type Qualified Codes: I25.9 - Chronic ischemic heart disease, unspecified (11) Elevated brain natriuretic peptide (BNP) level Status: Acute (12) Leukocytosis Status: Acute Qualifiers: Leukocytosis type: leukemoid reaction Qualified Codes: D72.823 - Leukemoid reaction Clinical Quality Measures AMI/AHF: ASA po Prior to arrival: No DVT/VTE Risk/Contraindication: Risk Factor Score Per Nursin RFS Level Per Nursing on Admit: 4+=Very High YOGESH STALLWORTH DO January 08, 2019 10:00
[2019-01-08] MEDS: ANIDULAFUNGIN INJECTION 100 MG in NS (IVPB) 100 ML IV SCH (10:13)
--- NOTE | 2019-01-08 10:28 | Cardiology Progress Note ---
Cardiology SOAP Progress Note Subjective: Agitated, noncooperative Objective: I&O/Vital Signs 01/07/19 01/07/19 01/08/19 01/08/19 22:50 23:00 00:00 00:00 Temp 99.0 Pulse 79 Resp 7 B/P (MAP) 139/70 (93) Pulse Ox 95 96 93 O2 Delivery Vapotherm Vapotherm Vapotherm O2 Flow Rate 21.00 50.00 21.00 21.00 FiO2 70 70 01/08/19 01/08/19 01/08/19 01/08/19 00:00 01:00 01:00 01:04 Pulse 80 81 81 80 Resp 22 25 22 B/P (MAP) 154/82 (106) 131/64 (86) Pulse Ox 95 94 92 O2 Delivery Vapotherm Vapotherm Vapotherm O2 Flow Rate 50.00 50.00 70.00 21.00 21.00 15.00 01/08/19 01/08/19 01/08/19 01/08/19 01:30 02:00 03:00 03:09 Pulse 80 80 78 Resp 22 22 22 B/P (MAP) 141/73 (95) 143/49 (80) 147/81 (103) Pulse Ox 93 96 97 97 O2 Delivery Vapotherm Vapotherm Vapotherm Vapotherm O2 Flow Rate 70.00 70.00 70.00 21.00 15.00 15.00 15.00 FiO2 70 01/08/19 01/08/19 01/08/19 01/08/19 03:13 04:00 04:00 04:31 Pulse 81 79 84 Resp 12 20 B/P (MAP) 148/75 (99) 158/81 (106) Pulse Ox 94 93 O2 Delivery Vapotherm Vapotherm Vapotherm Vapotherm O2 Flow Rate 60.00 60.00 21.00 60.00 11.00 11.00 11.00 FiO2 70 01/08/19 01/08/19 01/08/19 01/08/19 05:00 06:00 06:49 07:00 Pulse 79 77 80 Resp 14 14 14 B/P (MAP) 152/75 (100) 159/86 (110) 167/92 (117) Pulse Ox 95 95 97 97 O2 Delivery Vapotherm Vapotherm Vapotherm Vapotherm O2 Flow Rate 60.00 60.00 11.00 50.00 11.00 11.00 9.00 FiO2 60 01/08/19 01/08/19 01/08/19 01/08/19 07:00 08:00 08:00 09:00 Pulse 76 78 68 Resp 20 9 B/P (MAP) 158/89 (112) 150/87 (108) Pulse Ox 95 97 96 O2 Delivery Vapotherm Vapotherm Vapotherm O2 Flow Rate 9.00 50.00 50.00 9.00 9.00 FiO2 50 01/08/19 01/08/19 10:00 10:23 Pulse 63 Resp 23 B/P (MAP) 144/88 (106) Pulse Ox 98 96 O2 Delivery Vapotherm Vapotherm O2 Flow Rate 50.00 9.00 9.00 FiO2 50 01/08/19 00:00 Intake Total 150 ml Output Total 3850 ml Balance -3700 ml Weight (Pounds): 302 Weight (Ounces): 6.0 Weight (Calculated Kilograms): 136.790731 Constitutional: appears stated age, well-developed, well-nourished Respiratory: No accessory muscle use, No respiratory distress, No chest tender , No chest expansion is symmetric; chest is bilaterally symmetric; No lungs clear to percussion; lungs clear to auscultation; No crackles, No rhonchi, No rales, No stridor, No wheezing, No pleural rub, No other Cardiovascular: regular rate-rhythm; No irregularly irregular, No extra beats, No parasternal heave is noted, No JVD, No edema, No bradycardia, No tachycardia , No point of maximal impulse, No cardiac thrills are palpable; S1 and S2; No gallop/S3, No gallop/S4, No diastolic murmur, No systolic murmur, No friction rub, No click, No other Gastrointestional: No tender, No soft, No round, No distended, No pulsatile mass, No organomegaly, No guarding, No rebound, No tenderness, No hernia, No mass, No audible bowel sounds, No abnormal bowel sounds, No abdominal bruits, No spleenomegaly, No other Extremities: No normal range of motion, No non-tender, No normal inspection, No pedal edema, No calf tenderness, No normal capillary refill, No pelvis stable , No calf tenderness, No inflammation, No pedal edema, No slow capillary refill , No swelling, No other, No abrasion, No clubbing, No cyanosis, No ecchymosis, No laceration, No no lower extremity edema bilateral, No significant edema, No tenderness, No wound Neurologic/Psychiatric: No wheel adjuster II-XII nml as tested, No no motor/sensory deficits, No alert, No normal mood/affect, No oriented x 3, No abnormal cerebellar tests, No abnormal wheel adjuster II-XII, No abnormal gait, No aphasia, No EOM palsy, No facial droop, No motor weakness, No sensory deficit, No depressed affect; disoriented x 3; No other, No grossly intact, No power is 5/5 both on sides Skin: No normal color, No warm/dry, No cyanosis, No cool, No diaphoresis, No damp, No ecchymosis, No jaundice, No mottled, No pallor, No rash, No tattoos/ piercings, No ulcerations, No rash on exposed areas, No ulcerations on exposed areas, No other Results/Procedures: Labs Laboratory Tests 01/07/19 12:13: Glucometer 175H 01/07/19 14:23: Blood Gas Puncture Site RIGHT RADIAL, Blood Gas Patient Temperature 98.1, Arterial Blood pH 7.49H, Arterial Blood Partial Pressure CO2 36, Arterial Blood Partial Pressure O2 76L, Arterial Blood HCO3 27, Arterial Blood Total CO2 28.4, Arterial Blood Oxygen Saturation 96, Arterial Blood Base Excess 3.9H, Denny Test POSITIVE, Blood Gas Ventilator Setting NO, Blood Gas Inspired Oxygen 70% VAPOTHERM 01/07/19 18:11: Glucometer 262H 01/07/19 23:48: Glucometer 248H 01/08/19 03:10: White Blood Count 20.0H, Red Blood Count 3.78L, Hemoglobin 12.1, Hematocrit 36, Mean Corpuscular Volume 94, Mean Corpuscular Hemoglobin 32, Mean Corpuscular Hemoglobin Concent 34, Red Cell Distribution Width 13.0, Platelet Count 184, Mean Platelet Volume 10.4, Neutrophils (%) (Auto) 93H, Lymphocytes (%) (Auto) 3L , Monocytes (%) (Auto) 5, Eosinophils (%) (Auto) 0, Basophils (%) (Auto) 0, Neutrophils # (Auto) 18.5H, Lymphocytes # (Auto) 0.5L, Monocytes # (Auto) 1.0, Eosinophils # (Auto) 0.0, Basophils # (Auto) 0.0, Sodium Level 135, Potassium Level 3.8, Chloride Level 100, Carbon Dioxide Level 23, Anion Gap 12, Blood Urea Nitrogen 18, Creatinine 0.81, Estimat Glomerular Filtration Rate > 60, BUN/ Creatinine Ratio 22, Glucose Level 256H, Calcium Level 8.4L, Phosphorus Level 3.1, Magnesium Level 2.2 01/08/19 06:05: Ammonia 24 Microbiology 01/05/19 Blood Culture - Preliminary, Resulted No growth 01/05/19 Gram Stain - Final, Resulted 01/05/19 Sputum Culture - Preliminary, Resulted Stenotrophomonas Maltophilia YEAST A/P: Assessment/Dx: NSTEMI, refractory to medical therapy. Acute respiratory failure, Active smoking, Diabetes, COPD Plan: Non-STEMI refractory to medical therapy, aspirin, Brilinta. 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 Proximal OM artery had severe stenosis with haziness and CHRIS 2 flow which is likely the culprit artery. 2 drug-eluting stents placed. Severe LAD and moderate to severe RCA to be addressed later when the patient is much more stable. No urgency to perform PCI to LAD. It can be done as an outpatient when all the medical issues have stabilized/resolved. The patient has sepsis with leukocytosis, respiratory acidosis, lactic acidosis , mild fever. Source is likely right lower lobe pneumonia. Improving sepsis, defer to Dr. Riggs. Acute respiratory failure, Patient is agitated and disoriented. Sepsis, likely right lower lobe pneumonia. Broad-spectrum antibiotic. On cefepime and vancomycin. Active smoking, strongly recommended to quit on admission. Diabetes, deferred to the primary team. Thank you for your consultation. Please call me if you have any questions. Bety Mercado MD, FACP, FACC, FSCAI, FHRS, CCDS Interventional Cardiology Cardiac Electrophysiology Vascular Medicine and Endovascular Interventions Clinical Quality Measures AMI/AHF: ASA po Prior to arrival: Jc Cheatham MD January 08, 2019 10:28
--- NOTE | 2019-01-08 11:15 | NUR ---
Pastoral care visit.
[2019-01-08] MEDS: ENOXAPARIN 40 MG/0.4 ML (LOVENOX) SYR SC SCH ×2 (11:51→22:45)
[2019-01-08] MEDS: ATORVASTATIN 80 MG (LIPITOR) TABLET PO SCH (20:59)
[2019-01-08] MEDS: MONTELUKAST 10 MG (SINGULAIR) TAB PO SCH (20:59)
[2019-01-09] VITALS (24 sets, daily range): BP systolic 119–183; BP diastolic 55–102
[2019-01-09] MEDS: CEFEPIME INJECTION 1,000 MG in WATER (STERILE) FOR INJECTION 10 ML IV SCH ×2 (00:03→05:14)
[2019-01-09] MEDS: inSUlin ASPART (NovoLOG) 1 UNIT/0.01 ML (CHARGE PER UNIT) SC SCH ×4 (00:10→18:18)
[2019-01-09] MEDS: SULFAMETHOXAZOLE/TRIMETHO INJ 480 MG in D5W 500 ML IV SOLUTION 500 ML IV SCH ×4 (02:14→20:58)
[2019-01-09] MEDS: ACETAMINOPHEN 500 MG TAB (TYLENOL) PO PRN (02:14)
[2019-01-09] MEDS: RT-ALBUTEROL/IPRATROPIUM 3 ML (DUONEB) VIAL INH SCH ×6 (02:20→22:46)
[2019-01-09 04:09] LABS: BASOPHILS % (AUTO) 0 % (0-10); EOSINOPHILS % (AUTO) 0 % (0-10); HEMATOCRIT 37 % (35-52); HEMOGLOBIN 12.6 G/DL (11.5-16.0); LYMPHOCYTES # (AUTO) 0.5 X 10^3 (1.0-4.0); LYMPHOCYTES % (AUTO) 2 % (12-44); MEAN CORPUSCULAR HEMOGLOBIN 32 PG (25-34); MEAN CORPUSCULAR HGB CONC 34 G/DL (32-36); MEAN CORPUSCULAR VOLUME 93 FL (80-99); MEAN PLATELET VOLUME 10.3 FL (7.4-10.4); MONOCYTES # (AUTO) 1.9 X 10^3 (0.0-1.0); MONOCYTES % (AUTO) 9 % (0-12); NEUTROPHILS # (AUTO) 19.2 X 10^3 (1.8-7.8); NEUTROPHILS % (AUTO) 89 % (42-75); PLATELET COUNT 235 10^3/uL (130-400); RED CELL DISTRIBUTION WIDTH 13.4 % (10.0-14.5); WHITE BLOOD COUNT 21.7 10^3/uL (4.3-11.0)
[2019-01-09 04:27] LABS: CREATININE SERUM 0.99 MG/DL (0.60-1.30); MAGNESIUM 2.3 MG/DL (1.8-2.4); POTASSIUM 4.2 MMOL/L (3.6-5.0)
--- NOTE | 2019-01-09 05:24 | Pulmonary Progress Note ---
Subjective Time Seen by a Provider: 05:47 Subjective/Events-last exam Pt is doing better today. SHe is very weak however more alert. Family at bedside. She does have conversational dyspnea. Sepsis Event Evaluation Height, Weight, BMI Height: 6'0.00" Weight: 279lbs. 9.0oz. 126.704113zm; 34.8 BMI Method:Stated Exam Exam Vital Signs Date Time Temp Pulse Resp B/P (MAP) Pulse Ox O2 Delivery O2 Flow Rate FiO2 01/09/19 04:00 97.8 01/09/19 04:00 Vapotherm 9.00 50 01/09/19 04:00 78 26 149/73 (98) 95 Vapotherm 50.00 9.00 01/09/19 03:00 73 23 145/76 (99) 95 Vapotherm 50.00 9.00 01/09/19 02:21 95 Vapotherm 9.00 50 01/09/19 02:00 72 19 138/64 (88) 95 Vapotherm 50.00 9.00 01/09/19 01:00 65 20 119/55 (76) 95 Vapotherm 50.00 9.00 01/09/19 01:00 65 01/09/19 00:02 96.9 01/09/19 00:00 Vapotherm 9.00 50 01/09/19 00:00 67 20 126/65 (85) 95 Vapotherm 50.00 9.00 01/08/19 23:00 64 20 125/63 (83) 94 Vapotherm 50.00 9.00 01/08/19 22:21 95 Vapotherm 9.00 50 01/08/19 22:00 65 26 123/80 (94) 96 Vapotherm 50.00 9.00 01/08/19 21:00 66 21 135/71 (92) 96 Vapotherm 50.00 9.00 01/08/19 20:00 97.6 Vapotherm 50.00 9.00 01/08/19 20:00 Vapotherm 9.00 50 01/08/19 20:00 67 19 134/72 (92) 95 Vapotherm 50.00 9.00 01/08/19 19:00 64 20 142/98 (113) 95 Vapotherm 50.00 9.00 01/08/19 19:00 64 01/08/19 18:46 95 Vapotherm 9.00 50 01/08/19 18:00 64 20 129/73 (91) 96 Vapotherm 50.00 9.00 01/08/19 17:00 66 15 121/68 (85) 96 Vapotherm 50.00 9.00 01/08/19 16:00 65 21 134/74 (94) 95 Vapotherm 50.00 9.00 01/08/19 16:00 98.2 01/08/19 15:57 95 Vapotherm 9.00 50 01/08/19 15:05 97 Vapotherm 9.00 50 01/08/19 15:00 68 24 150/86 (107) 96 Vapotherm 50.00 9.00 01/08/19 14:00 66 17 137/75 (95) 96 Vapotherm 50.00 9.00 01/08/19 13:00 68 01/08/19 13:00 68 18 131/72 (91) 96 Vapotherm 50.00 9.00 01/08/19 12:00 97.2 01/08/19 12:00 66 23 141/73 (95) 96 Vapotherm 50.00 9.00 01/08/19 12:00 95 Vapotherm 9.00 50 01/08/19 11:00 65 15 143/83 (103) 97 Vapotherm 50.00 9.00 01/08/19 10:23 96 Vapotherm 9.00 50 01/08/19 10:00 63 23 144/88 (106) 98 Vapotherm 50.00 9.00 01/08/19 09:00 68 9 150/87 (108) 96 Vapotherm 50.00 9.00 01/08/19 08:00 78 20 158/89 (112) 97 Vapotherm 50.00 9.00 01/08/19 08:00 95 Vapotherm 9.00 50 01/08/19 07:00 76 01/08/19 07:00 80 14 167/92 (117) 97 Vapotherm 50.00 9.00 01/08/19 06:49 97 Vapotherm 11.00 60 01/08/19 06:00 77 14 159/86 (110) 95 Vapotherm 60.00 11.00 I & O 01/09/19 07:00 Intake Total 2850 ml Output Total 6900 ml Balance -4050 ml Height & Weight Height: 6'0.00" Weight: 279lbs. 9.0oz. 126.872725hx; 34.8 BMI Method:Stated General Appearance: Anxious, Mild Distress HEENT: Normal ENT Inspection, Moist Mucous Membranes Neck: Full Range of Motion, Normal Inspection Respiratory: Accessory Muscle Use, Decreased Breath Sounds, Wheezing Cardiovascular: Regular Rate, Rhythm, No Edema, No Gallop, No JVD, No Murmur ( Difficult to hear over respiratory noises and mechanical ventilation however), Normal Peripheral Pulses Capillary Refill: Less Than 3 Seconds Gastrointestinal: normal bowel sounds, non tender, soft, no organomegaly, no pulsatile mass Extremity: Normal Capillary Refill, Normal Inspection, Normal Range of Motion, Non Tender, No Calf Tenderness, No Pedal Edema Neurologic/Psychiatric: Alert, Oriented x3, Other (Sedated on vent but had been moving all extremities with no focal findings being appreciated prior to mechanical ventilation) Skin: Normal Color, Warm/Dry, Damp, Pallor Lymphatic: No Adenopathy Results Lab Laboratory Tests 01/08/19 03:10 01/09/19 04:00 Assessment/Plan Assessment/Plan Acute respiratory failure --slowly improving - Vapotherm Pulmonary edema with anasarca -Continue Lasix daily 40mg CP with NSTEMI and EKG changes s/p cath -Cardiology following -Morphine CT scan shows possible PE -- I am not convinced this is PE -Lovenox was started -Bilateral dopplers -- neg Metabolic encephalopathy secondary to meds and medical condition Severe sepsis secondary to pneumonia with Stenotrophomonas - present at admission --Pt was septic at admission from pneumonia. -cefepime, Eraxis, Bactrim -Pt is on severe sepsis protocol -Reilly culture, check UA -MRSA swab - is negative COPDAE - solumedrol - decrease to daily -SVNs -Singulair, Claritin Atelectasis -Start IS -Increase activity Hx of COPD with persistent tobacco use -education -oxygen -monitor Probable JAC -Out pt testing Debility -PT/OT -Up to chair -Advance diet to regular JOSE LUIS MONTOYA DO January 09, 2019 05:24
[2019-01-09] MEDS ORDERED: methylPREDNISolone 40 MG/ML (Solu-MEDROL) VIAL IV ONE (05:45)
[2019-01-09] MEDS ORDERED: morphine INJ 4 MG/ML 1 ML (VIAL/SYRINGE) IVP PRN (05:45)
[2019-01-09] MEDS ORDERED: RT-ALBUTEROL/IPRATROPIUM 3 ML (DUONEB) VIAL INH PRN (05:45)
[2019-01-09] MEDS ORDERED: ONDANSETRON 4 MG/2 ML (SDV) Z0FRAN ONE (06:13)
[2019-01-09] MEDS ORDERED: methylPREDNISolone 40 MG/ML (Solu-MEDROL) VIAL ONE (06:13)
[2019-01-09] MEDS: ONDANSETRON 4 MG/2 ML (SDV) Z0FRAN IVP PRN ×2 (06:27→20:58)
[2019-01-09] MEDS ORDERED: KCL 20 MEQ TAB (K-DUR) PO SCH (07:00)
[2019-01-09] MEDS: PANTOPRAZOLE 40 MG (PROTONIX) VIAL IV SCH (07:51)
[2019-01-09] MEDS: meTOprolol TARTRATE 25 MG (LOPRESSOR) TABLET GT SCH ×2 (07:51→20:58)
[2019-01-09] MEDS: TICAGRELOR 90 MG TABLET (BRILINTA) PO SCH ×2 (07:51→20:58)
[2019-01-09] MEDS: LORATADINE (CLARITIN) 10 MG TAB PO SCH (07:52)
[2019-01-09] MEDS: ASPIRIN E.C. 81 MG (ECOTRIN) TAB PO SCH (07:52)
[2019-01-09] MEDS: lisINopril 5 MG (PRINIVIL) TABLET PO SCH (07:52)
--- NOTE | 2019-01-09 07:57 | Diagnostic Imaging Report ---
INDICATION: Sepsis. COMPARISON: 01/08/2019. FINDINGS: Single frontal radiographic view of the chest was obtained and demonstrates overall improvement. Scattered patchy alveolar opacities are diminished. There is some mild residual diffuse interstitial prominence. There is also persistent prominence of the pulmonary vasculature and borderline prominence of cardiac silhouette. There is no large effusion or pneumothorax on either side. Right upper extremity PICC line is seen with tip in the low SVC. Bony structures show no gross acute abnormalities. IMPRESSION: 1. Overall improved aeration bilaterally. Dictated by: Dictated on workstation # [id number]
--- NOTE | 2019-01-09 08:50 | Physical Therapy Evaluation ---
PT Evaluation-General Medical Diagnosis Admission Date January 01, 2019 at 18:35 Medical Diagnosis: debility, MS Onset Date: January 01, 2019 Therapy Diagnosis Therapy Diagnosis: impaired mobility, strength, endurnace Height/Weight Height (Feet): 6 Height (Inches): 0.00 Weight (Pounds): 279 Weight (Ounces): 9.0 Precautions Precautions/Isolations: Fall Prevention Referral Physician: Antony Riggs DO Reason for Referral: Evaluation/Treatment Medical History Pertinent Medical History: COPD, DM, Smoking Additional Medical History obesity Current History Patient went to ER with CP and SOB Reviewed History: Yes Social History Home: Single Level Current Living Status: Spouse Entry Into Home: Stairs With Railing PT Steps Into Home: 2 Prior/Core FIM Prior Level of Function Therapy Code Descriptions/Definitions Functional [place] Measure: 0=Not Assessed/NA 4=Minimal Assistance 1=Total Assistance 5=Supervision or Setup 2=Maximal Assistance 6=Modified [place] 3=Moderate Assistance 7=Complete [place] Therapy Quality Codes: 6 Independent with activity with or without an assistive device 5 Patient requires set up or clean up by helper. Patient completes activity by themselves 4 Supervision or touching assist (CGA). Richards provide cues , steadying assist 3 The helper provides less than half the effort to complete the activity 2 The helper provides more than half the effort to complete the activity 1 Dependent. The helper does all the effort to complete an activity 7 Patient refused to complete or attempt activity 9 The patient did not perform the activity before the current illness or injury 88 Not attempted due to Medical conditions or safety concerns Functional Abilities and Goals: Independent: Patient completed the activities by him/herself, with or without an assistive device, with no assistance from a helper. Needed Some Help: Patient needed partial assistance from another person to complete activities. Dependent: A helper completed the activities for the patient. Unknown: Not Applicable: Bed Mobility: 7 Transfers (B,C,W/C) (FIM): 7 Gait: 7 Stairs: 7 Indoor Mobility (Ambulation): Independent Stairs: Independent PT Evaluation-Current Subjective Patient in bed pre tx, agrees to PT, has no complaints of pain. Patient is very shaky. Pt/Family Goals to be independent at home Objective Patient Orientation: Person, Place, Situation Attachments: Oxygen, [place] Catheter, IV ROM/Strength ROM Lower Extremities slightly generally limited due to obesity and LE edema Strength Lower Extremities right lower extremity (hip flexion 2/5, knee flexion 3+/5, knee extension 4/5, dorsiflexion 4/5), left lower extremity (hip flexion 2/5, knee flexion 3+/5, knee extension 4/5, dorsiflexion 4/5) Neuromuscular (Tone, Coordination, Reflexes) NT Sensory Hearing: Functional Sensation Right Lower Extremit: Intact Sensation Left Lower Extremity: Intact Transfers Therapy Code Descriptions/Definitions Functional [place] Measure: 0=Not Assessed/NA 4=Minimal Assistance 1=Total Assistance 5=Supervision or Setup 2=Maximal Assistance 6=Modified [place] 3=Moderate Assistance 7=Complete [place] Transfers (B, C, W/C) (FIM): 3 Scootin Rollin Supine to/from Sit: 4 Sit to/from Stand: 3 Patient needs min assist for supine to sit, mod assist to stand and perform transfer. Patient transferred to recliner beside bed. She could not do the transfer with a rolling walker because of knee buckling and her arms could not support her weight. Balance Sitting Static: Fair Sitting Dynamic: Fair Standing Static: Fair Standing Dynamic: Fair Treatment BLE seated exercises x15 (AP, LAQ). Patient advised to perform AP every 30 min for DVT prevention. Assessment/Needs Patient has impaired mobility, strength, endurance. She is very shaky. Weakness in BLE and has knee buckling when standing. Rehab Potential: Fair PT Short Term Goals Short Term Goals Time Frame: January 16, 2019 Transfers (B,C,W/C) (FIM): 5 Gait (FIM): 1 Gait Distance Comment: 20' Gait Level of Assist: 4 Gait Assistive Device: FWW PT Plan Problem List Problem List: Activity Tolerance, Functional Strength, Safety, Balance, Gait, Transfer, Bed Mobility, ROM Treatment/Plan Treatment Plan: Continue Plan of Care Treatment Plan: Bed Mobility, Education, Functional Activity Anaid, Functional Strength, Gait, Safety, Therapeutic Exercise, Transfers Treatment Duration: January 16, 2019 Frequency: 6 times per week Estimated Hrs Per Day: .25 hour per day (15-30') Patient and/or Family Agrees t: Yes Safety Risks/Education Patient Education: Transfer Techniques, Correct Positioning, Safety Issues Teaching Recipient: Patient Teaching Methods: Demonstration, Discussion Response to Teaching: Reinforcement Needed Discharge Recommendations Plan Patient will perform bed mobility and transfer training, balance and endurance training, functional strengthening, stair training, gait training, and education , to improve functional mobility and independence at home. Therapy D/C Recommendations: Acute Rehab, Home w/ Family Support Time/GCodes Time In: 814 Time Out: 839 Total Billed Treatment Time: 25 Total Billed Treatment 1 visit OSWALDO 15' FA 10' TRE SOLOMON PT January 09, 2019 08:50
[2019-01-09] MEDS ORDERED: FUROSEMIDE 40 MG/4 ML INJ (LASIX) IVP SCH (09:00)
[2019-01-09] MEDS: ANIDULAFUNGIN INJECTION 100 MG in NS (IVPB) 100 ML IV SCH (09:37)
--- NOTE | 2019-01-09 10:15 | Progress Note-Hospitalist ---
Subjective HPI/CC On Admission Date Seen by Provider: January 09, 2019 Time Seen by Provider: 09:30 The patient is a 63-year-old white female with no previous history of cardiovascular disease noted the onset of rather sharp precordial chest pain that radiated to both arms roughly 3 hours prior to presentation to the emergency room. She had diaphoresis and shortness of breath with this. Upon presentation to the emergency room she appeared to be in acute distress with elevated troponin level and some ST depression in the anterior leads somewhat difficult to interpret as the patient was shaking. Initially her chest was clear and CTA study of the chest revealed no definitive evidence for pulmonary embolism or pneumonia. Patient was admitted to intensive care unit where she had progressive shortness of breath with ABG compatible acute respiratory failure for which she was intubated by Dr. Riggs and underwent emergent cardiac catheterization where the pulmonary report was patient had to critical stenosis of to obtuse marginal coronary arteries for which successful drug- eluting stents were placed. Currently the patient is on pressure support with mean arterial pressures greater than 65 sedated on mechanical ventilation. Subjective/Events-last exam Patient delirium has improved tremendously Patient feels much better Lovenox oozing right lower abdomen and being dressed currently Just now eating today and will monitor bowels No pain is reported Dyspnea improved Overall much improved Review of Systems General: Fatigue Pulmonary: Dyspnea Objective Exam Vital Signs Vital Signs Date Time Temp Pulse Resp B/P (MAP) Pulse Ox O2 Delivery O2 Flow Rate FiO2 01/09/19 09:00 81 28 167/83 (111) 93 Vapotherm 50.00 9.00 01/09/19 07:55 98.7 01/09/19 07:02 50 Capillary Refill : Less Than 3 Seconds General Appearance: No Apparent Distress, WD/WN, Chronically ill, Obese HEENT: Normal ENT Inspection, Moist Mucous Membranes Neck: Full Range of Motion, Normal Inspection Respiratory: Chest Non Tender, No Respiratory Distress, Accessory Muscle Use, Decreased Breath Sounds, Wheezing Cardiovascular: Regular Rate, Rhythm, No Edema, No Gallop, No JVD, No Murmur ( Difficult to hear over respiratory noises and mechanical ventilation however), Normal Peripheral Pulses Gastrointestinal: Normal Bowel Sounds, No Organomegaly, No Pulsatile Mass, Non Tender, Soft Extremity: Normal Capillary Refill, Normal Inspection, Normal Range of Motion, Non Tender, No Calf Tenderness, No Pedal Edema Neurologic/Psychiatric: Alert, Oriented x3, No Motor/Sensory Deficits, 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, research and evaluation manager II-XII Norm as Tested, Other (Sedated on vent but had been moving all extremities with no focal findings being appreciated prior to mechanical ventilation) Skin: Normal Color, Warm/Dry, Damp, Pallor Lymphatic: No Adenopathy Results/Procedures Lab Laboratory Tests 01/09/19 04:00 Patient resulted labs reviewed. Assessment/Plan Assessment and Plan Assess & Plan/Chief Complaint Assessment: Acute delirium-resolving Vent dependent respiratory failure now extubated and on Vapotherm and weaning down Respiratory failure-resolving Non-ST elevation SD status post stent placement but needs additional interventions Sepsis Obesity Diabetes mellitus Current smoker Plan: Smoking cessation Diabetes management with insulin Antibiotics Ativan for agitation Monitor closely Delirium resolving PT/OT IRF Saturday? Critical Care Critically Ill Patient Diagnosis/Problems Diagnosis/Problems (1) Delirium Status: Resolved Resolution Date/Time: 01/09/19 @ 10:19 (2) Respiratory failure Status: Acute Qualifiers: Chronicity: unspecified Respiratory failure complication: unspecified whether with hypoxia or hypercapnia Qualified Codes: J96.90 - Respiratory failure, unspecified, unspecified whether with hypoxia or hypercapnia (3) Ventilator dependence Status: Resolved Resolution Date/Time: 01/07/19 @ 11:09 (4) Obesity Status: Chronic Qualifiers: Obesity type: due to excess calories Obesity classification: adult class 3 (BMI >= 40) Serious obesity comorbidity presence: with serious comorbidity Body mass index: BMI 40.0-44.9 Qualified Codes: E66.01 - Morbid (severe) obesity due to excess calories; Z68.41 - Body mass index (BMI) 40.0-44.9, adult (5) Smoker Status: Chronic (6) Diabetes mellitus Status: Chronic Qualifiers: Diabetes mellitus type: type 2 Diabetes mellitus watermaster insulin use: without usp use Diabetes mellitus complication status: with unspecified complications Qualified Codes: E11.8 - Type 2 diabetes mellitus with unspecified complications (7) Agitation Status: Acute (8) Confusion Status: Acute (9) NSTEMI, initial episode of care Status: Acute (10) Chest pain Status: Acute Qualifiers: Chest pain type: chest pain due to myocardial ischemia Ischemic chest pain type: unspecified angina pectoris type Qualified Codes: I25.9 - Chronic ischemic heart disease, unspecified (11) Elevated brain natriuretic peptide (BNP) level Status: Acute (12) Leukocytosis Status: Acute Qualifiers: Leukocytosis type: leukemoid reaction Qualified Codes: D72.823 - Leukemoid reaction Clinical Quality Measures AMI/AHF: ASA po Prior to arrival: No DVT/VTE Risk/Contraindication: Risk Factor Score Per Nursin RFS Level Per Nursing on Admit: 4+=Very High YOGESH STALLWORTH DO January 09, 2019 10:15
--- NOTE | 2019-01-09 11:11 | Cardiology Progress Note ---
Cardiology SOAP Progress Note Subjective: No chest pain. Objective: I&O/Vital Signs 01/09/19 01/09/19 01/09/19 01/09/19 00:00 00:00 00:02 01:00 Temp 96.9 Pulse 67 65 Resp 20 B/P (MAP) 126/65 (85) Pulse Ox 95 O2 Delivery Vapotherm Vapotherm O2 Flow Rate 50.00 9.00 9.00 FiO2 50 01/09/19 01/09/19 01/09/19 01/09/19 01:00 02:00 02:21 03:00 Pulse 65 72 73 Resp 20 19 23 B/P (MAP) 119/55 (76) 138/64 (88) 145/76 (99) Pulse Ox 95 95 95 95 O2 Delivery Vapotherm Vapotherm Vapotherm Vapotherm O2 Flow Rate 50.00 50.00 9.00 50.00 9.00 9.00 9.00 FiO2 50 01/09/19 01/09/19 01/09/19 01/09/19 04:00 04:00 04:00 05:00 Temp 97.8 Pulse 78 86 Resp 22 B/P (MAP) 149/73 (98) 153/72 (99) Pulse Ox 95 96 O2 Delivery Vapotherm Vapotherm Vapotherm O2 Flow Rate 50.00 9.00 50.00 9.00 9.00 FiO2 50 01/09/19 01/09/19 01/09/19 01/09/19 06:00 07:00 07:02 07:09 Pulse 90 100 99 Resp 20 B/P (MAP) 159/69 (99) 167/76 (106) Pulse Ox 95 96 96 O2 Delivery Vapotherm Vapotherm Vapotherm O2 Flow Rate 50.00 50.00 9.00 9.00 9.00 FiO2 50 01/09/19 01/09/19 01/09/19 01/09/19 07:55 08:00 08:00 09:00 Temp 98.7 Pulse 104 81 Resp 26 28 B/P (MAP) 160/102 (121) 167/83 (111) Pulse Ox 98 93 O2 Delivery Vapotherm Vapotherm Vapotherm O2 Flow Rate 9.00 50.00 50.00 9.00 9.00 FiO2 50 01/09/19 01/09/19 01/09/19 10:00 10:15 10:28 Pulse 82 Resp 15 B/P (MAP) 169/80 (109) Pulse Ox 94 93 O2 Delivery Vapotherm Vapotherm Vapotherm O2 Flow Rate 50.00 9.00 45.00 9.00 7.00 FiO2 50 01/09/19 00:00 Intake Total 1770 ml Output Total 2300 ml Balance -530 ml Weight (Pounds): 279 Weight (Ounces): 9.0 Weight (Calculated Kilograms): 126.636648 Constitutional: appears stated age, well-developed, well-nourished Respiratory: No accessory muscle use, No respiratory distress, No chest tender, No chest expansion is symmetric; chest is bilaterally symmetric; No lungs clear to percussion; lungs clear to auscultation; No crackles, No rhonchi, No rales, No stridor, No wheezing, No pleural rub, No other Cardiovascular: regular rate-rhythm; No irregularly irregular, No extra beats, No parasternal heave is noted, No JVD, No edema, No bradycardia, No tachycardia, No point of maximal impulse, No cardiac thrills are palpable; S1 and S2; No gallop/S3, No gallop/S4, No diastolic murmur, No systolic murmur, No friction rub, No click, No other Gastrointestional: No tender, No soft, No round, No distended, No pulsatile mass, No organomegaly, No guarding, No rebound, No tenderness, No hernia, No mass, No audible bowel sounds, No abnormal bowel sounds, No abdominal bruits, No spleenomegaly, No other Extremities: No normal range of motion, No non-tender, No normal inspection, No pedal edema, No calf tenderness, No normal capillary refill, No pelvis stable, No calf tenderness, No inflammation, No pedal edema, No slow capillary refill, No swelling, No other, No abrasion, No clubbing, No cyanosis, No ecchymosis, No laceration, No no lower extremity edema bilateral, No significant edema, No tenderness, No wound Neurologic/Psychiatric: No reference librarian II-XII nml as tested, No no motor/sensory deficits, No alert, No normal mood/affect, No oriented x 3, No abnormal cerebellar tests, No abnormal reference librarian II-XII, No abnormal gait, No aphasia, No EOM palsy, No facial droop, No motor weakness, No sensory deficit, No depressed affect; disoriented x 3; No other, No grossly intact, No power is 5/5 both on si kulwinder Skin: No normal color, No warm/dry, No cyanosis, No cool, No diaphoresis, No damp, No ecchymosis, No jaundice, No mottled, No pallor, No rash, No tattoos/piercings, No ulcerations, No rash on exposed areas, No ulcerations on exposed areas, No other Results/Procedures: Labs Laboratory Tests 01/08/19 11:45: Glucometer 250H 01/08/19 17:52: Glucometer 229H 01/09/19 00:03: Glucometer 247H 01/09/19 04:00: White Blood Count 21.7H, Red Blood Count 3.94L, Hemoglobin 12.6, Hematocrit 37, Mean Corpuscular Volume 93, Mean Corpuscular Hemoglobin 32, Mean Corpuscular Hem oglobin Concent 34, Red Cell Distribution Width 13.4, Platelet Count 235, Mean Platelet Volume 10.3, Neutrophils (%) (Auto) 89H, Lymphocytes (%) (Auto) 2L, Monocytes (%) (Auto) 9, Eosinophils (%) (Auto) 0, Basophils (%) (Auto) 0, Neutrophils # (Auto) 19.2H, Lymphocytes # (Auto) 0.5L, Monocytes # (Auto) 1.9H, Eosinophils # (Auto) 0.0, Basophils # (Auto) 0.0, Sodium Level 135, Potassium Level 4.2, Chloride Level 100, Carbon Dioxide Level 22, Anion Gap 13, Blood Urea Nitrogen 18, Creatinine 0.99, Estimat Glomerular Filtration Rate 56, BUN/Creatinine Ratio 18, Glucose Level 239H, Calcium Level 9.0, Phosphorus Level 3.5, Magnesium Level 2.3 Microbiology 01/05/19 Blood Culture - Preliminary, Resulted No growth 01/05/19 Gram Stain - Final, Complete 01/05/19 Sputum Culture - Final, Complete Stenotrophomonas Maltophilia YEAST A/P: Assessment/Dx: NSTEMI, refractory to medical therapy. Acute respiratory failure, Active smoking, Diabetes, COPD Plan: Non-STEMI refractory to medical therapy, aspirin, Brilinta. 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 Proximal OM artery had severe stenosis with haziness and CHRIS 2 flow which is likely the culprit artery. 2 drug-eluting stents placed. Severe LAD and moderate to severe RCA to be addressed later when the patient is much more stable. No urgency to perform PCI to LAD. It can be done as an outpatient when all the medical issues have stabilized/resolved. The patient has sepsis with leukocytosis, respiratory acidosis, lactic acidosis, mild fever. Source is likely right lower lobe pneumonia. Improving sepsis, defer to Dr. Riggs. Acute respiratory failure, Patient is agitated and disoriented. Sepsis, likely right lower lobe pneumonia. Broad-spectrum antibiotic. On cefepime and vancomycin. Active smoking, strongly recommended to quit on admission. Diabetes, deferred to the primary team. Thank you for your consultation. Please call me if you have any questions. Bety Mercado MD, FACP, FACC, FSCAI, FHRS, CCDS Interventional Cardiology Cardiac Electrophysiology Vascular Medicine and Endovascular Interventions Clinical Quality Measures AMI/AHF: ASA po Prior to arrival: Jc Cheatham MD January 09, 2019 11:11
[2019-01-09] MEDS: ENOXAPARIN 40 MG/0.4 ML (LOVENOX) SYR SC SCH ×2 (11:16→22:15)
--- NOTE | 2019-01-09 13:01 | Occupational Therapy Eval ---
OT Evaluation-General/PLF Medical Diagnosis Admission Date January 01, 2019 at 18:35 Medical Diagnosis: debility, IN Onset Date: January 01, 2019 Therapy Diagnosis Therapy Diagnosis: impaired ADLs and mobility Height/Weight Height (Feet): 6 Height (Inches): 0.00 Weight (Pounds): 279 Weight (Ounces): 9.0 Precautions Precautions/Isolations: Fall Prevention, Standard Precautions, Pressure Ulcer Safety Interventions: Reorient-PRN Weight Bear Status Weight Bearing Restriction: Weight Bearing/Tolerated Referral Physician: Antony Riggs DO Referral Reason: Activity Tolerance, Self Care, Evaluation/Treatment Medical History Pertinent Medical History: COPD, DM, Smoking Additional Medical History obesity Current History H &P : 01/06/19: "patient is a 63-year-old white female with no previous history of cardiovascular disease noted the onset of rather sharp precordial chest pain that radiated to both arms roughly 3 hours prior to presentation to the emergency room. She had diaphoresis and shortness of breath with this. Upon presentation to the emergency room she appeared to be in acute distress with elevated troponin level and some ST depression in the anterior leads somewhat difficult to interpret as the patient was shaking. Initially her chest was clear and CTA study of the chest revealed no definitive evidence for pulmonary embolism or pneumonia. Patient was admitted to intensive care unit where she had progressive shortness of breath with ABG compatible acute respiratory failure for which she was intubated by Dr. Riggs and underwent emergent cardiac catheterization where the pulmonary report was patient had to critical stenosis of to obtuse marginal coronary arteries for which successful drug-eluting stents were placed." Reviewed History: Yes Social History Home: Single Level Current Living Status: Spouse Entry Into Home: Stairs With Railing Steps Into Home: 3 ADL-Prior Level of Function Therapy Code Descriptions/Definitions Functional Point Measure: 0=Not Assessed/NA 4=Minimal Assistance 1=Total Assistance 5=Supervision or Setup 2=Maximal Assistance 6=Modified Point 3=Moderate Assistance 7=Complete Point Therapy Quality Codes: 6 Independent with activity with or without an assistive device 5 Patient requires set up or clean up by helper. Patient completes activity by themselves 4 Supervision or touching assist (CGA). [place] provide cues , steadying assist 3 The helper provides less than half the effort to complete the activity 2 The helper provides more than half the effort to complete the activity 1 Dependent. The helper does all the effort to complete an activity 7 Patient refused to complete or attempt activity 9 The patient did not perform the activity before the current illness or injury 88 Not attempted due to Medical conditions or safety concerns Functional Abilities and Goals: Independent: Patient completed the activities by him/herself, with or without an assistive device, with no assistance from a helper. Needed Some Help: Patient needed partial assistance from another person to complete activities. Dependent: A helper completed the activities for the patient. 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 pt son present in room. pt agreed to OT evaluation/ treatment session. noted fully body tremors. pt stated tremors are PLOF (began 3 years ago) Pain Numeric Pain Scale: 0-No Pain Mental Status/Objective Patient Orientation: Person, Place, Situation, Normal For Age Attachments: [place] Catheter, Oxygen, Telemetry Current Glasses/Contacts: Yes Hearing Aids: No Dentures/Partials: No Hand Dominance: Right Upper Extremity ROM WFL Upper Extremity Coordination decrease coordination secondary to trimmers. pt stated inna are PLOF (3 years) Upper Extremity Sensation WFL kade UE Upper Extremity Strength Kade UE 4/5 ADL-Treatment Therapy Code Descriptions/Definitions Functional Point Measure: 0=Not Assessed/NA 4=Minimal Assistance 1=Total Assistance 5=Supervision or Setup 2=Maximal Assistance 6=Modified Point 3=Moderate Assistance 7=Complete Point Therapy Quality Codes: 6 Independent with activity with or without an assistive device 5 Patient requires set up or clean up by helper. Patient completes activity by themselves 4 Supervision or touching assist (CGA). [place] provide cues , steadying assist 3 The helper provides less than half the effort to complete the activity 2 The helper provides more than half the effort to complete the activity 1 Dependent. The helper does all the effort to complete an activity 7 Patient refused to complete or attempt activity 9 The patient did not perform the activity before the current illness or injury 88 Not attempted due to Medical conditions or safety concerns pt currently requires set up while siting for grooming/ eating, total assist for LB dressing, MOD A for bathing, and MAX A X 2 person for sit to stands. Other Treatments pt education on proper hand placement / technique when performing sit to stands with RW. pt demo ability to perform scooting in chair with CGA for safety/ balance, and sit to stand with MAX A X 2 person. full stand not perform. noted pt has fear of falling. pt demo ability to perform 3X2 buttock raised while seated in chair in prep for toilet transfers. O2 saturation remained above 92% during TX session. pt education on energy conservation techniques during TX session/ pursed lip breathing. pt require MAX VC to facilitate trained technique within task. Education OT Patient Education: Energy conservation, Progress toward Goal/Update tx plan, Purpose of tx/functional activities, Safety issues, Transfer techniques Teaching Recipient: Patient, Family Teaching Methods: Demonstration, Discussion Response to Teaching: Verbalize Understanding, Reinforcement Needed OT Short Term Goals Short Term Goals Grooming(FIM): 5 Bathing(FIM): 4 Lower Body Dressing(FIM): 3 Toileting(FIM): 4 Transfers (B,C,W/C) (FIM): 5 Toilet/Commode Transfer(FIM): 4 1=Demonstrate adherence to instructed precautions during ADL tasks. 2=Patient will verbalize/demonstrate understanding of assistive devices/mo difications for ADL. 3=Patient will improve strength/tolerance for activity to enable patient to perform ADL's. OT [place] M[place] Supervisor Goals [place] Supervisor Goals Grooming(FIM): 6 Bathing(FIM): 6 Bathing Location: L Arm, R Arm, L Upper Leg, R Upper Leg, L Lower Leg (including foot), R Lower Leg (including foot), Chest, Abdomen, Buttocks, Perineal Area Lower Body Dressing(FIM): 6 Toileting(FIM): 6 Transfers (B,C,W/C) (FIM): 6 Toilet/Commode Transfer(FIM): 6 Additional Goals: 1-Demonstrate ADL Tasks, 2-Verbalize Understanding, 3- ImproveStrength/Anaid 1=Demonstrate adherence to instructed precautions during ADL tasks. 2=Patient will verbalize/demonstrate understanding of assistive devices/modifications for ADL. 3=Patient will improve strength/tolerance for activity to enable patient to perform ADL's. OT Education/Plan Problem List/Assessment Assessment: Decreased Activ Tolerance, Decreased Safety Aware, Decreased UE Strength, Dependent Transfers, Impaired Bed Mobility, Impaired Coordination, Impaired Funct Balance, Impaired I ADL's, Impaired Self-Care Skills, Restricted Funct UE ROM pt presents with functional limitations affecting areas of ADLS/ functional transfers. pt would benefit from OT services to increase safety/ independence with ADLS/. functional transfers. pt is NOT safe to return home at this time. recommend inpt rehab when medically stable. Discharge Recommendations Plan/Recommendations: Continue POC Therapy D/C Recommendations: Acute Rehab Treatment Plan/Plan of Care Treatment,Training & Education: Yes Patient would benefit from OT for education, treatment and training to promote independence in ADL's, mobility, safety and/or upper extremity function for ADL's. Plan of Care: ADL Retraining, Caregiver Training, Concurrent Therapy, Functional Mobility, Group Exercise/Act as Ind, UE Funct Exercise/Act Treatment Duration: January 23, 2019 Frequency: 5 times per week Estimated Hrs Per Day: .25 hour per day Agreement: Yes Rehab Potential: Fair Time/GCodes Start Time: 11:35 Stop Time: 12:00 Billed Treatment Time EVM 15 minutes FA 10 minutes, 1 unit GONZALEZ PEREZ OT January 09, 2019 13:00
--- NOTE | 2019-01-09 13:51 | Physical Therapy Progress Note ---
Therapy Progress Note Checked on patient to see if she was still up in the chair and if she would like to go back to bed. She was still in the chair and happy to stay in it for now. She was aware that being in the chair vs the bed was better for her lungs and she wanted to stay there. She also states that she has been performing ankle pumps often. Patient will get her regular daily treatment in the morning. TRE SOLOMON PT January 09, 2019 13:50
--- NOTE | 2019-01-09 15:39 | Physical Therapy Progress Note ---
Therapy Progress Note Nursing asked PT to help get patient back to bed this afternoon. Patient has been sitting in recliner most of the day, since PT got her into the recliner this morning. Patient performs transfer with mod assist and nurse aide help to watch lines and patient needs max assist to lay back down. Patient continues to be very shaky but no complaints of pain. Patient in bed post tx with nurse call, phone, tray, family in the room and nurse aide in the room. TRE SOLOMON PT January 09, 2019 15:39
[2019-01-09] MEDS: ATORVASTATIN 80 MG (LIPITOR) TABLET PO SCH (20:58)
[2019-01-09] MEDS: MONTELUKAST 10 MG (SINGULAIR) TAB PO SCH (20:58)
[2019-01-10] VITALS (22 sets, daily range): BP systolic 137–169; BP diastolic 64–116
[2019-01-10] MEDS: RT-ALBUTEROL/IPRATROPIUM 3 ML (DUONEB) VIAL INH SCH ×6 (02:30→22:12)
[2019-01-10] MEDS: SULFAMETHOXAZOLE/TRIMETHO INJ 480 MG in D5W 500 ML IV SOLUTION 500 ML IV SCH (02:33)
[2019-01-10 02:50] LABS: BASOPHILS % (AUTO) 0 % (0-10); EOSINOPHILS % (AUTO) 0 % (0-10); HEMATOCRIT 39 % (35-52); HEMOGLOBIN 13.1 G/DL (11.5-16.0); LYMPHOCYTES % (AUTO) 8 % (12-44); MEAN CORPUSCULAR HEMOGLOBIN 32 PG (25-34); MEAN CORPUSCULAR HGB CONC 33 G/DL (32-36); MEAN CORPUSCULAR VOLUME 95 FL (80-99); MEAN PLATELET VOLUME 10.2 FL (7.4-10.4); MONOCYTES # (AUTO) 3.4 X 10^3 (0.0-1.0); MONOCYTES % (AUTO) 14 % (0-12); NEUTROPHILS # (AUTO) 18.1 X 10^3 (1.8-7.8); NEUTROPHILS % (AUTO) 77 % (42-75); PLATELET COUNT 317 10^3/uL (130-400); RED CELL DISTRIBUTION WIDTH 13.8 % (10.0-14.5); WHITE BLOOD COUNT 23.5 10^3/uL (4.3-11.0)
[2019-01-10 03:07] LABS: CREATININE SERUM 1.08 MG/DL (0.60-1.30); POTASSIUM 3.8 MMOL/L (3.6-5.0)
[2019-01-10 03:08] LABS: CALCIUM 9.1 MG/DL (8.5-10.1); MAGNESIUM 2.4 MG/DL (1.8-2.4); PHOSPHORUS 2.2 MG/DL (2.3-4.7)
[2019-01-10 04:00] LABS: LYMPHOCYTES % (MANUAL) 9 %; MONOCYTES % (MANUAL) 12 %; NEUTROPHILS % (MANUAL) 79 %
[2019-01-10] MEDS ORDERED: POTASSIUM PHOSPHATE INJ 30 MM in NS (IVPB) 250 ML IV ONE (04:00)
--- NOTE | 2019-01-10 04:00 | Pulmonary Progress Note ---
Subjective Time Seen by a Provider: 04:34 Subjective/Events-last exam Pt was up in chair x 5 hours yesterday. She is running low grade fever and WBC is increasing. MS much improved. Sepsis Event Evaluation Height, Weight, BMI Height: 6'0.00" Weight: 279lbs. 9.0oz. 126.074063jx; 34.8 BMI Method:Stated Exam Exam Vital Signs Date Time Temp Pulse Resp B/P (MAP) Pulse Ox O2 Delivery O2 Flow Rate FiO2 01/10/19 03:00 76 15 167/81 (109) Vapotherm 40.00 9.00 01/10/19 02:35 Vapotherm 40.00 9.00 01/10/19 02:30 95 Vapotherm 9.00 40 01/10/19 02:00 89 15 169/91 (117) Vapotherm 45.00 9.00 01/10/19 01:00 83 19 164/81 (108) Vapotherm 45.00 9.00 01/10/19 01:00 83 01/10/19 00:00 Vapotherm 9.00 45 01/10/19 00:00 73 24 161/81 (107) 93 Vapotherm 45.00 9.00 01/09/19 23:45 100.0 01/09/19 23:00 75 20 158/89 (112) 94 Vapotherm 45.00 9.00 01/09/19 22:46 93 Vapotherm 9.00 45 01/09/19 22:00 92 18 149/83 (105) 94 Vapotherm 45.00 9.00 01/09/19 21:00 95 22 123/89 (100) 95 Vapotherm 45.00 9.00 01/09/19 20:00 98 25 175/96 (122) 96 Vapotherm 45.00 9.00 01/09/19 20:00 Vapotherm 9.00 45 01/09/19 19:55 99.6 01/09/19 19:00 98 18 153/81 (105) 96 Vapotherm 45.00 9.00 01/09/19 19:00 99 01/09/19 18:54 94 Vapotherm 9.00 50 01/09/19 18:00 96 18 155/79 (104) 92 Vapotherm 60.00 9.00 01/09/19 17:00 103 11 183/86 (118) 91 Vapotherm 60.00 9.00 01/09/19 16:00 Vapotherm 9.00 60 01/09/19 16:00 93 19 177/84 (115) 95 Vapotherm 60.00 9.00 01/09/19 15:55 99.2 01/09/19 15:00 83 19 166/82 (110) 93 Vapotherm 60.00 9.00 01/09/19 14:50 95 Vapotherm 9.00 60 01/09/19 14:00 84 25 173/74 (107) 94 Vapotherm 60.00 9.00 01/09/19 13:11 80 01/09/19 13:00 80 17 163/73 (103) 93 Vapotherm 60.00 9.00 01/09/19 12:00 Vapotherm 7.00 45 01/09/19 12:00 82 22 162/74 (103) 94 Vapotherm 45.00 7.00 01/09/19 12:00 97.6 01/09/19 11:00 81 23 136/101 (113) 92 Vapotherm 45.00 7.00 01/09/19 10:28 Vapotherm 45.00 7.00 01/09/19 10:15 93 Vapotherm 9.00 50 01/09/19 10:00 82 15 169/80 (109) 94 Vapotherm 50.00 9.00 01/09/19 09:00 81 28 167/83 (111) 93 Vapotherm 50.00 9.00 01/09/19 08:00 104 26 160/102 (121) 98 Vapotherm 50.00 9.00 01/09/19 08:00 Vapotherm 9.00 50 01/09/19 07:55 98.7 01/09/19 07:09 99 01/09/19 07:02 96 Vapotherm 9.00 50 01/09/19 07:00 100 20 167/76 (106) 96 Vapotherm 50.00 9.00 01/09/19 06:00 90 20 159/69 (99) 95 Vapotherm 50.00 9.00 01/09/19 05:00 86 22 153/72 (99) 96 Vapotherm 50.00 9.00 01/09/19 04:00 97.8 01/09/19 04:00 Vapotherm 9.00 50 01/09/19 04:00 78 26 149/73 (98) 95 Vapotherm 50.00 9.00 I & O 01/10/19 07:00 Intake Total 2790 ml Output Total 3725 ml Balance -935 ml Height & Weight Height: 6'0.00" Weight: 279lbs. 9.0oz. 126.910301fh; 34.8 BMI Method:Stated General Appearance: No Apparent Distress, WD/WN, Chronically ill, Obese HEENT: Normal ENT Inspection, Moist Mucous Membranes Neck: Full Range of Motion, Normal Inspection Respiratory: Chest Non Tender, No Respiratory Distress, Accessory Muscle Use, Decreased Breath Sounds, Wheezing Cardiovascular: Regular Rate, Rhythm, No Edema, No Gallop, No JVD, No Murmur (Difficult to hear over respiratory noises and mechanical ventilation however), Normal Peripheral Pulses Capillary Refill: Less Than 3 Seconds Gastrointestinal: normal bowel sounds, non tender, soft, no organomegaly, no pulsatile mass Extremity: Normal Capillary Refill, Normal Inspection, Normal Range of Motion, Non Tender, No Calf Tenderness, No Pedal Edema Neurologic/Psychiatric: Alert, Oriented x3, No Motor/Sensory Deficits, 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, clinical coder II-XII Norm as Tested, Other (Sedated on vent but had been moving all extremities with no focal findings being appreciated prior to mechanical ventilation) Skin: Normal Color, Warm/Dry, Damp, Pallor Lymphatic: No Adenopathy Results Lab Laboratory Tests 01/09/19 04:00 01/10/19 02:43 Assessment/Plan Assessment/Plan Acute respiratory failure --slowly improving - Vapotherm Pulmonary edema with anasarca - improved -D/C Lasix daily 40mg BUN is starting to increase and UO is very concentrated -Check UA -Start LR at 30cc/hr CP with NSTEMI and EKG changes s/p cath -Cardiology following -Morphine Fever and worsening leukocytosis despite decreasing Steroids -Solumedrol is d/c'd -Will start Merrem and Zyvox after repan culturing and repeating MRSA nasal swab -Continue Eraxis -Cefepime auto stopped 01/09 yesterday -No diarrhea Thrush -Start nystatin SS CT scan shows possible PE - Doubt PE -Lovenox PPX dose -Bilateral dopplers -- neg Metabolic encephalopathy secondary to meds and medical condition Severe sepsis secondary to pneumonia with Stenotrophomonas - present at admission --Pt was septic at admission from pneumonia. - Eraxis, Bactrim -Pt is on severe sepsis protocol -Reilly culture, check UA -MRSA swab - is negative COPDAE - solumedrol - decrease to daily -SVNs -Singulair, Claritin Atelectasis -Start IS -Increase activity Hx of COPD with persistent tobacco use -education -oxygen -monitor Probable JAC -Out pt testing Debility -PT/OT -Up to chair -Advance diet to regular JOSE LUIS MONTOYA DO January 10, 2019 04:00
[2019-01-10] MEDS: inSUlin ASPART (NovoLOG) 1 UNIT/0.01 ML (CHARGE PER UNIT) SC SCH ×4 (05:27→21:45)
[2019-01-10 05:30] LABS: BILIRUBIN,URINE NEGATIVE (NEGATIVE); CLARITY,URINE SLIGHTLY CLOUDY; COLOR,URINE AMBER; GLUCOSE, URINE (UA) NEGATIVE (NEGATIVE); KETONES,URINE NEGATIVE (NEGATIVE); LEUKOCYTE ESTERASE ,URINE 1+ (NEGATIVE); NITRITE,URINE NEGATIVE (NEGATIVE); PH,URINE 7 (5-9); PROTEIN,URINE 2+ (NEGATIVE); UROBILINOGEN,URINE NORMAL (NORMAL)
[2019-01-10 05:38] LABS: BACTERIA,URINE TRACE /HPF; RBC,URINE >100 /HPF; WBC,URINE 0-2 /HPF
[2019-01-10] MEDS: LACTATED RINGERS 1,000 ML IV SCH (05:41)
[2019-01-10] MEDS: NYSTATIN ORAL SUSP 5 ML UDC PO SCH ×4 (05:44→23:12)
[2019-01-10] MEDS: MEROPENEM 500 MG in WATER (STERILE) FOR INJECTION 10 ML IV SCH ×4 (05:44→21:32)
[2019-01-10] MEDS: ONDANSETRON 4 MG/2 ML (SDV) Z0FRAN IVP PRN (05:44)
[2019-01-10] MEDS: LORATADINE (CLARITIN) 10 MG TAB PO SCH (08:22)
[2019-01-10] MEDS: ASPIRIN E.C. 81 MG (ECOTRIN) TAB PO SCH (08:22)
[2019-01-10] MEDS: PANTOPRAZOLE 40 MG (PROTONIX) VIAL IV SCH (08:22)
[2019-01-10] MEDS: TICAGRELOR 90 MG TABLET (BRILINTA) PO SCH ×2 (08:22→21:32)
[2019-01-10] MEDS: ANIDULAFUNGIN INJECTION 100 MG in NS (IVPB) 100 ML IV SCH (08:22)
[2019-01-10] MEDS: meTOprolol TARTRATE 25 MG (LOPRESSOR) TABLET GT SCH ×2 (08:22→21:32)
[2019-01-10] MEDS: TRIM/SULFAMETH 160/800 (SEPTRA DS) TAB PO SCH ×2 (08:23→16:58)
[2019-01-10] MEDS: DOCUSATE SODIUM 100 MG (COLACE) CAP PO SCH ×2 (08:23→21:32)
[2019-01-10] MEDS: lisINopril 5 MG (PRINIVIL) TABLET PO SCH (08:23)
[2019-01-10] MEDS: LINEZOLID IVPB 300 ML IV SCH ×2 (09:21→21:32)
--- NOTE | 2019-01-10 09:28 | Progress Note-Hospitalist ---
Subjective HPI/CC On Admission Date Seen by Provider: January 10, 2019 Time Seen by Provider: 08:30 The patient is a 63-year-old white female with no previous history of cardiovascular disease noted the onset of rather sharp precordial chest pain that radiated to both arms roughly 3 hours prior to presentation to the emergency room. She had diaphoresis and shortness of breath with this. Upon presentation to the emergency room she appeared to be in acute distress with elevated troponin level and some ST depression in the anterior leads somewhat difficult to interpret as the patient was shaking. Initially her chest was clear and CTA study of the chest revealed no definitive evidence for pulmonary embolism or pneumonia. Patient was admitted to intensive care unit where she had progressive shortness of breath with ABG compatible acute respiratory failure for which she was intubated by Dr. Riggs and underwent emergent cardiac catheterization where the pulmonary report was patient had to critical stenosis of to obtuse marginal coronary arteries for which successful drug-eluting stents were placed. Currently the patient is on pressure support with mean arterial pressures greater than 65 sedated on mechanical ventilation. Subjective/Events-last exam Patient is working with the physical therapy this morning and getting ready to stand up to sit in a chair. She is very weak and shaky but alert and oriented and very easy to communicate with. She has not had a bowel movement to her recollection her abdomen does appear to be somewhat distended and is very quiet. She is on Vapotherm with sats 96 percent. Review of Systems Pulmonary: Dyspnea Neurological: Weakness Objective Exam Vital Signs Vital Signs Date Time Temp Pulse Resp B/P (MAP) Pulse Ox O2 Delivery O2 Flow Rate FiO2 01/11/19 20:03 95 Nasal Cannula 3.00 01/11/19 19:40 99.6 78 18 129/61 (83) 01/11/19 04:00 40 Capillary Refill : Less Than 3 Seconds General Appearance: No Apparent Distress, WD/WN, Chronically ill, Obese HEENT: Normal ENT Inspection, Moist Mucous Membranes Neck: Full Range of Motion, Normal Inspection Respiratory: Chest Non Tender, No Respiratory Distress, Accessory Muscle Use, Decreased Breath Sounds, Wheezing Cardiovascular: Regular Rate, Rhythm, No Edema, No Gallop, No JVD, No Murmur (Difficult to hear over respiratory noises and mechanical ventilation however), Normal Peripheral Pulses Gastrointestinal: No Organomegaly, No Pulsatile Mass, Non Tender, Abnormal Bowel Sounds, Distended Extremity: Normal Capillary Refill, Normal Inspection, Normal Range of Motion, Non Tender, No Calf Tenderness, Pedal Edema Neurologic/Psychiatric: Alert, Oriented x3, No Motor/Sensory Deficits, 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, division operations specialist II-XII Norm as Tested Skin: Normal Color, Warm/Dry, Damp, Pallor Lymphatic: No Adenopathy Results/Procedures Lab Laboratory Tests 01/11/19 03:30 Patient resulted labs reviewed. Imaging: Reviewed Imaging Report Assessment/Plan Assessment and Plan Assess & Plan/Chief Complaint Acute respiratory failure secondary to pneumonia and sepsis. Off the mechanical ventilator on Vapotherm-sats are 92 percent Non-ST segment elevation [place] status post stent placement. Abdominal distention will consider getting a KUB later today. Sepsis currently on meropenem and Zyvox and Bactrim-still running a low-grade fever. Weakness and deconditioning consideration should be given for an inpatient rehabilitation stay. Tobaccoism currently curtailed and counseled Critical Care Critically Ill Patient Clinical Quality Measures AMI/AHF: ASA po Prior to arrival: No DVT/VTE Risk/Contraindication: Risk Factor Score Per Nursin RFS Level Per Nursing on Admit: 4+=Very High HIPOLITO BRAVO MD January 10, 2019 09:28
--- NOTE | 2019-01-10 09:52 | Physical Therapy Daily Note ---
PT Daily Note-Current Subjective Pt reports she is starting to feel a little better. She requested to be up in the chair. Mental Status Patient Orientation: Person, Place, Time, Eyes Open, Situation Attachments: Oxygen, [place] Catheter, IV Transfers Therapy Code Descriptions/Definitions Functional [place] Measure: 0=Not Assessed/NA 4=Minimal Assistance 1=Total Assistance 5=Supervision or Setup 2=Maximal Assistance 6=Modified [place] 3=Moderate Assistance 7=Complete [place] Therapy Quality Codes: 6 Independent with activity with or without an assistive device 5 Patient requires set up or clean up by helper. Patient completes activity by themselves 4 Supervision or touching assist (CGA). [place] provide cues , steadying assist 3 The helper provides less than half the effort to complete the activity 2 The helper provides more than half the effort to complete the activity 1 Dependent. The helper does all the effort to complete an activity 7 Patient refused to complete or attempt activity 9 The patient did not perform the activity before the current illness or injury 88 Not attempted due to Medical conditions or safety concerns Transfers (B, C, W/C) (FIM): 3 Scootin Sit to/from Stand: 3 Bed to/from Chair: 3 Pt needed moderate physical assist for initial stand. 2nd trial of standing was min A. Pt was not able to fully lock knees during stand pivot transfer. Required Moderate assist for stand pivot to chair. Provided education on sequencing. Assessment Current Status: Fair Progress Demonstrated improved initiation of movement. she is very weak in (B) LEs and at risk for falls during standing. Activity tolerance is low. Pt will benefit from continued therapy to address mobility and strength. PT Short Term Goals Short Term Goals Time Frame: January 16, 2019 Transfers (B,C,W/C) (FIM): 5 Gait (FIM): 1 Gait Distance Comment: 20' Gait Level of Assist: 4 Gait Assistive Device: FWW PT Plan Problem List Problem List: Activity Tolerance, Balance, Gait, Bed Mobility Treatment/Plan Treatment Plan: Continue Plan of Care Treatment Plan: Bed Mobility, Education, Functional Activity [place], Functional Strength, Gait, Safety, Therapeutic Exercise, Transfers Treatment Duration: January 16, 2019 Frequency: 6 times per week Estimated Hrs Per Day: .25 hour per day (15-30') Patient and/or Family Agrees t: Yes Time/GCodes Time In: 850 Time Out: 915 Total Billed Treatment Time: 25 Total Billed Treatment visit, FA x 2 BALDEV ETIENNE PT January 10, 2019 09:52
--- NOTE | 2019-01-10 10:12 | Diagnostic Imaging Report ---
EXAM: CHEST 1 VIEW, AP/PA ONLY INDICATION: Sepsis. COMPARISON: Chest radiograph 01/09/2019. FINDINGS: Low lung volumes accentuate heart size. Diffuse interstitial prominence similar to the prior exam. No focal pulmonary opacity. No pleural effusion or pneumothorax. No acute osseous findings. Right PICC tip mid SVC. IMPRESSION: 1. Persistent interstitial prominence similar to yesterday. No new focal consolidation. 2. Heart size is accentuated by low lung volumes. Dictated by: Dictated on workstation # [id number]
[2019-01-10] MEDS: ENOXAPARIN 40 MG/0.4 ML (LOVENOX) SYR SC SCH ×2 (10:28→23:12)
--- NOTE | 2019-01-10 14:29 | Progress Note-Cardiology ---
Cardiology SOAP Progress Note Subjective: Less short of breath, but still tires easily and has shortness of breath with mild exertion No cp or palp or syncope Objective: I&O/Vital Signs 01/10/19 01/10/19 01/10/19 01/10/19 02:30 02:35 03:00 04:00 Pulse 76 Resp 15 B/P (MAP) 167/81 (109) Pulse Ox 95 O2 Delivery Vapotherm Vapotherm Vapotherm Vapotherm O2 Flow Rate 9.00 40.00 40.00 9.00 9.00 9.00 FiO2 40 45 01/10/19 01/10/19 01/10/19 01/10/19 04:00 04:08 05:00 06:00 Temp 99.5 Pulse 80 83 86 Resp 17 14 16 B/P (MAP) 163/81 (108) 163/76 (105) 152/77 (102) O2 Delivery Vapotherm Vapotherm Vapotherm O2 Flow Rate 40.00 40.00 40.00 9.00 9.00 9.00 01/10/19 01/10/19 01/10/19 01/10/19 06:59 07:00 07:00 08:00 Pulse 85 85 Resp 21 B/P (MAP) 163/74 (103) Pulse Ox 92 O2 Delivery Vapotherm Vapotherm Vapotherm O2 Flow Rate 9.00 40.00 9.00 9.00 FiO2 40 40 01/10/19 01/10/19 01/10/19 01/10/19 08:00 08:00 09:00 10:00 Temp 98.6 Pulse 85 90 78 Resp 42 16 15 B/P (MAP) 137/79 (98) 147/67 (93) O2 Delivery Vapotherm Vapotherm Vapotherm O2 Flow Rate 40.00 40.00 40.00 9.00 9.00 9.00 01/10/19 01/10/19 01/10/19 01/10/19 10:38 11:00 12:00 12:00 Temp 98.7 Pulse 73 Resp 22 B/P (MAP) 153/76 (101) Pulse Ox 93 95 O2 Delivery Vapotherm Vapotherm Vapotherm O2 Flow Rate 9.00 40.00 9.00 9.00 FiO2 40 40 01/10/19 01/10/19 01/10/1901/10/19 12:00 12:50 13:00 14:00 Pulse 68 66 80 69 Resp 13 32 26 B/P (MAP) 153/72 (99) 140/68 (92) 147/73 (97) O2 Delivery Vapotherm Vapotherm Vapotherm O2 Flow Rate 40.00 40.00 40.00 9.00 9.00 9.00 01/10/19 00:00 Intake Total 1930 ml Output Total 1625 ml Balance 305 ml Weight (Pounds): 266 Weight (Ounces): 7.0 Weight (Calculated Kilograms): 120.087815 Constitutional: AAO x 3, well-developed, well-nourished Respiratory: chest is bilaterally symmetric, other (fair air entry, prolonged exp, exp rhonchi, coarse basal crackles) Cardiovascular: regular rate-rhythm, S1 and S2, systolic murmur (soft PRIYANK at card basee) Gastrointestional: No tender; soft; No guarding, No rebound; audible bowel sounds Extremities: No clubbing, No cyanosis; significant edema (3-4+ edema of both legs) Neurologic/Psychiatric: oriented x 3, other (able to move all limbs equally) Skin: No rash on exposed areas, No ulcerations on exposed areas Results/Procedures: Labs Laboratory Tests 01/09/19 16:10: Glucometer 151H 01/09/19 21:20: Glucometer 111H 01/10/19 02:43: White Blood Count 23.5H, Red Blood Count 4.12L, Hemoglobin 13.1, Hematocrit 39, Mean Corpuscular Volume 95, Mean Corpuscular Hemoglobin 32, Mean Corpuscular Hemoglobin Concent 33, Red Cell Distribution Width 13.8, Platelet Count 317, Mean Platelet Volume 10.2, Neutrophils (%) (Auto) 77H, Lymphocytes (%) (Auto) 8L , Monocytes (%) (Auto) 14H, Eosinophils (%) (Auto) 0, Basophils (%) (Auto) 0, Neutrophils # (Auto) 18.1H, Lymphocytes # (Auto) 2.0, Monocytes # (Auto) 3.4H, Eosinophils # (Auto) 0.0, Basophils # (Auto) 0.0, Neutrophils % (Manual) 79, Lymphocytes % (Manual) 9, Monocytes % (Manual) 12, Sodium Level 136, Potassium Level 3.8, Chloride Level 99, Carbon Dioxide Level 24, Anion Gap 13, Blood Urea Nitrogen 20H, Creatinine 1.08, Estimat Glomerular Filtration Rate 51, BU N/Creatinine Ratio 19, Glucose Level 116H, Calcium Level 9.1, Phosphorus Level 2.2L, Magnesium Level 2.4 01/10/19 04:35: Urine Color AMBERH, Urine Clarity SLIGHTLY CLOUDY, Urine pH 7, Urine Specific [place] 1.010L, Urine Protein 2+H, Urine Glucose (UA) NEGATIVE, Urine Ketones NEGATIVE, Urine Nitrite NEGATIVE, Urine Bilirubin NEGATIVE, Urine Urobilinogen NORMAL, Urine Leukocyte Esterase 1+H, Urine RBC (Auto) 5+H, Urine RBC >100H, Urine WBC 0-2, Urine Squamous Epithelial Cells NONE, Urine Crystals NONE, Urine Bacteria TRACE, Urine Casts NONE, Urine Mucus NEGATIVE, Urine Culture Indicated NO 01/10/19 11:39: Glucometer 163H Microbiology 01/05/19 Blood Culture - Preliminary, Resulted No growth 01/05/19 Gram Stain - Final, Complete 01/05/19 Sputum Culture - Final, Complete Stenotrophomonas Maltophilia YEAST Laboratory Tests 01/09/19 04:00 01/10/19 02:43 A/P: Assessment: CAD. NSTEMI led to coronary angiography on 01/02/2019: triple vessel disease, severe. Proximal OM artery had severe stenosis with haziness and CHRIS 2 flow which was likely the culprit artery. 2 drug-eluting stents placed. Severe LAD and moderate to severe RCA to be addressed later when the patient is much more stable Acute respiratory failure: COPD exacerbation due to RLL pneumonia Sepsis due to right lower lobe pneumonia Chronic, continuing tobacco use DM II Echo of 01/02/19: LVEF 50-55%, grade 2 quarles dysfxn, mild to mod MR Plan: * Complex management due to multiple comorbidities * I reviewed her chart, interviewed her, examined her and answer and her family's CV-related questions * Continue current cardiac regimen * Furosemide is currently being held by the ICU Svce because of clinical ind icators of intravasc vol depletion (decreasing urine output, concentrated urine, rising Cr) * Monitor labs closely * She has been advised to refrain from tobacco use Clinical Quality Measures AMI/AHF: ASA po Prior to arrival: SHYANN Spaulding MD FACP FACC CCDS January 10, 2019 14:29
[2019-01-10] MEDS: ATORVASTATIN 80 MG (LIPITOR) TABLET PO SCH (21:32)
[2019-01-10] MEDS: MONTELUKAST 10 MG (SINGULAIR) TAB PO SCH (21:32)
[2019-01-11] VITALS (12 sets, daily range): BP systolic 129–163; BP diastolic 61–79
[2019-01-11] MEDS: RT-ALBUTEROL/IPRATROPIUM 3 ML (DUONEB) VIAL INH SCH ×6 (02:36→22:20)
[2019-01-11] MEDS: MEROPENEM 500 MG in WATER (STERILE) FOR INJECTION 10 ML IV SCH ×4 (03:26→23:08)
[2019-01-11 03:38] LABS: BASOPHILS % (AUTO) 0 % (0-10); EOSINOPHILS # (AUTO) 0.1 10^3/uL (0.0-0.3); EOSINOPHILS % (AUTO) 1 % (0-10); HEMATOCRIT 36 % (35-52); LYMPHOCYTES # (AUTO) 2.3 X 10^3 (1.0-4.0); LYMPHOCYTES % (AUTO) 14 % (12-44); MEAN CORPUSCULAR HEMOGLOBIN 32 PG (25-34); MEAN CORPUSCULAR HGB CONC 33 G/DL (32-36); MEAN CORPUSCULAR VOLUME 95 FL (80-99); MEAN PLATELET VOLUME 9.8 FL (7.4-10.4); MONOCYTES # (AUTO) 2.4 X 10^3 (0.0-1.0); MONOCYTES % (AUTO) 14 % (0-12); NEUTROPHILS # (AUTO) 12.2 X 10^3 (1.8-7.8); NEUTROPHILS % (AUTO) 72 % (42-75); PLATELET COUNT 270 10^3/uL (130-400); RED CELL DISTRIBUTION WIDTH 13.9 % (10.0-14.5); WHITE BLOOD COUNT 16.9 10^3/uL (4.3-11.0)
[2019-01-11 03:57] LABS: BUN/CREATININE RATIO 19; CALCIUM 8.6 MG/DL (8.5-10.1); CARBON DIOXIDE 25 MMOL/L (21-32); CHLORIDE 101 MMOL/L (98-107); CREATININE SERUM 0.78 MG/DL (0.60-1.30); GFR ESTIMATED > 60; GLUCOSE 125 MG/DL (70-105); PHOSPHORUS 2.5 MG/DL (2.3-4.7); POTASSIUM 3.8 MMOL/L (3.6-5.0); SODIUM 137 MMOL/L (135-145)
[2019-01-11] MEDS: LACTATED RINGERS 1,000 ML IV SCH (04:30)
--- NOTE | 2019-01-11 04:59 | Pulmonary Progress Note ---
Subjective Time Seen by a Provider: 04:59 Subjective/Events-last exam Pt is doing better. Pt is still requiring Vapotherm. Sepsis Event Evaluation Height, Weight, BMI Height: 6'0.00" Weight: 266lbs. 7.0oz. 120.811120pq; 34.8 BMI Method:Stated Exam Exam Vital Signs Date Time Temp Pulse Resp B/P (MAP) Pulse Ox O2 Delivery O2 Flow Rate FiO2 01/11/19 04:00 Vapotherm 9.00 40 01/11/19 04:00 75 29 163/78 (106) 97 Vapotherm 40.00 9.00 01/11/19 04:00 97.9 01/11/19 03:00 77 19 155/69 (97) 91 Vapotherm 40.00 9.00 01/11/19 02:37 96 Vapotherm 9.00 40 01/11/19 02:00 67 22 161/74 (103) 97 Vapotherm 40.00 9.00 01/11/19 01:00 67 21 157/71 (99) 97 Vapotherm 40.00 9.00 01/11/19 01:00 68 01/11/19 00:00 Vapotherm 9.00 40 01/11/19 00:00 65 20 160/77 (104) 96 Vapotherm 40.00 9.00 01/10/19 23:12 97.3 01/10/19 23:00 70 19 161/75 (103) 95 Vapotherm 40.00 9.00 01/10/19 22:13 97 Vapotherm 9.00 40 01/10/19 22:00 84 24 149/81 (103) 96 Vapotherm 40.00 9.00 01/10/19 21:00 80 21 143/67 (92) 93 Vapotherm 40.00 9.00 01/10/19 20:00 78 19 161/70 (100) 95 Vapotherm 40.00 9.00 01/10/19 20:00 Vapotherm 9.00 40 01/10/19 20:00 98.2 01/10/19 19:00 81 17 152/116 (128) 96 Vapotherm 40.00 9.00 01/10/19 19:00 83 01/10/19 18:45 96 Vapotherm 9.00 40 01/10/19 18:00 79 12 152/78 (102) Vapotherm 40.00 9.00 01/10/19 17:00 75 21 142/64 (90) Vapotherm 40.00 9.00 01/10/19 16:00 Vapotherm 9.00 40 01/10/19 16:00 73 26 146/67 (93) Vapotherm 40.00 9.00 01/10/19 15:00 72 27 Vapotherm 40.00 9.00 01/10/19 14:41 93 Vapotherm 9.00 40 01/10/19 14:00 69 26 147/73 (97) Vapotherm 40.00 9.00 01/10/19 13:00 80 32 140/68 (92) Vapotherm 40.00 9.00 01/10/19 12:50 66 01/10/19 12:00 68 13 153/72 (99) Vapotherm 40.00 9.00 01/10/19 12:00 98.7 01/10/19 12:00 Vapotherm 9.00 40 01/10/19 11:00 73 22 153/76 (101) 95 Vapotherm 40.00 9.00 01/10/19 10:38 93 Vapotherm 9.00 40 01/10/19 10:00 78 15 147/67 (93) Vapotherm 40.00 9.00 01/10/19 09:00 90 16 Vapotherm 40.00 9.00 01/10/19 08:00 85 42 137/79 (98) Vapotherm 40.00 9.00 01/10/19 08:00 98.6 01/10/19 08:00 Vapotherm 9.00 40 01/10/19 07:00 85 21 163/74 (103) Vapotherm 40.00 9.00 01/10/19 07:00 85 01/10/19 06:59 92 Vapotherm 9.00 40 01/10/19 06:00 86 16 152/77 (102) Vapotherm 40.00 9.00 01/10/19 05:00 83 14 163/76 (105) Vapotherm 40.00 9.00 I & O 01/11/19 07:00 Intake Total 1935 ml Output Total 1300 ml Balance 635 ml Height & Weight Height: 6'0.00" Weight: 266lbs. 7.0oz. 120.066035nq; 34.8 BMI Method:Stated General Appearance: No Apparent Distress, WD/WN, Chronically ill, Obese HEENT: Normal ENT Inspection, Moist Mucous Membranes Neck: Full Range of Motion, Normal Inspection Respiratory: Chest Non Tender, No Respiratory Distress, Accessory Muscle Use, Decreased Breath Sounds, Wheezing Cardiovascular: Regular Rate, Rhythm, No Edema, No Gallop, No JVD, No Murmur (Difficult to hear over respiratory noises and mechanical ventilation however), Normal Peripheral Pulses Capillary Refill: Less Than 3 Seconds Gastrointestinal: normal bowel sounds, non tender, soft, no organomegaly, no pulsatile mass Extremity: Normal Capillary Refill, Normal Inspection, Normal Range of Motion, Non Tender, No Calf Tenderness, Pedal Edema Neurologic/Psychiatric: Alert, Oriented x3, No Motor/Sensory Deficits, 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, 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 Skin: Normal Color, Warm/Dry, Damp, Pallor Lymphatic: No Adenopathy Results Lab Laboratory Tests 01/10/19 02:43 01/11/19 03:30 Assessment/Plan Assessment/Plan Acute respiratory failure --slowly improving - Vapotherm Pulmonary edema with anasarca - improved -improving CP with NSTEMI and EKG changes s/p cath -Cardiology following -Morphine Fever and worsening leukocytosis despite decreasing Steroids -Solumedrol is d/c'd - Merrem and Zyvox - repan culture pending repeat MRSA nasal swab -pending -Eraxis -Cefepime auto stopped 01/09 yesterday -No diarrhea Thrush -nystatin SS CT scan shows possible PE - Doubt PE -Lovenox PPX dose -Bilateral dopplers -- neg Metabolic encephalopathy secondary to meds and medical condition Severe sepsis secondary to pneumonia with Stenotrophomonas - present at admission --Pt was septic at admission from pneumonia. - Eraxis, Bactrim -Pt is on severe sepsis protocol -Reilly culture, check UA -MRSA swab - is negative COPDAE -SVNs -Singulair, Claritin Atelectasis -Start IS -Increase activity Hx of COPD with persistent tobacco use -education -oxygen -monitor Probable JAC -Out pt testing Debility -PT/OT -Up to chair -Advance diet to regular JOSE LUIS MONTOYA DO January 11, 2019 04:59
[2019-01-11] MEDS: inSUlin ASPART (NovoLOG) 1 UNIT/0.01 ML (CHARGE PER UNIT) SC SCH ×4 (05:51→20:23)
[2019-01-11] MEDS: NYSTATIN ORAL SUSP 5 ML UDC PO SCH ×4 (05:55→23:08)
[2019-01-11] MEDS: LORATADINE (CLARITIN) 10 MG TAB PO SCH (08:28)
[2019-01-11] MEDS: TRIM/SULFAMETH 160/800 (SEPTRA DS) TAB PO SCH ×2 (08:28→17:40)
[2019-01-11] MEDS: TICAGRELOR 90 MG TABLET (BRILINTA) PO SCH ×2 (08:29→20:23)
[2019-01-11] MEDS: PANTOPRAZOLE 40 MG (PROTONIX) VIAL IV SCH (08:29)
[2019-01-11] MEDS: DOCUSATE SODIUM 100 MG (COLACE) CAP PO SCH ×2 (08:29→20:22)
[2019-01-11] MEDS: meTOprolol TARTRATE 25 MG (LOPRESSOR) TABLET GT SCH ×2 (08:29→20:23)
[2019-01-11] MEDS: lisINopril 5 MG (PRINIVIL) TABLET PO SCH (08:29)
[2019-01-11] MEDS: ASPIRIN E.C. 81 MG (ECOTRIN) TAB PO SCH (08:29)
[2019-01-11] MEDS: LINEZOLID IVPB 300 ML IV SCH ×2 (08:30→20:23)
--- NOTE | 2019-01-11 08:45 | NUR ---
REPORT RECEIVED FROM MAXIM HEREDIA. PT IN ROOM 431, ALERT AND ORIENTED. O2 ON AT 3L. SANDERS PATENT, URINE CLEAR. FAMILY AT BEDSIDE, ORIENTED OT ROOM, CALL LIGHT WITHIN REACH. VOICES NO COMPLAINTS.
--- NOTE | 2019-01-11 09:45 | Diagnostic Imaging Report ---
Portable chest compared to prior study from 01/10/2019. INDICATION: Sepsis. Non-ST elevation myocardial infarction. FINDINGS: Position of right-sided PICC line is unchanged. Heart size remains mildly prominent, but there has been interval improvement in the central pulmonary vascularity compared to the previous exam. There is no focal infiltrate, consolidation or significant effusion. IMPRESSION: 1. Interval improvement in pulmonary vascularity compared to the prior examination. There is decreased prominence of the central pulmonary vascularity. There is no effusion. There are no alveolar infiltrates. Dictated by: Dictated on workstation # [id number]
[2019-01-11] MEDS: ANIDULAFUNGIN INJECTION 100 MG in NS (IVPB) 100 ML IV SCH (10:08)
--- NOTE | 2019-01-11 12:01 | Progress Note-Hospitalist ---
Subjective HPI/CC On Admission Date Seen by Provider: January 11, 2019 Time Seen by Provider: 11:30 The patient is a 63-year-old white female with no previous history of cardiovascular disease noted the onset of rather sharp precordial chest pain that radiated to both arms roughly 3 hours prior to presentation to the emergency room. She had diaphoresis and shortness of breath with this. Upon presentation to the emergency room she appeared to be in acute distress with elevated troponin level and some ST depression in the anterior leads somewhat difficult to interpret as the patient was shaking. Initially her chest was clear and CTA study of the chest revealed no definitive evidence for pulmonary embolism or pneumonia. Patient was admitted to intensive care unit where she had progressive shortness of breath with ABG compatible acute respiratory failure for which she was intubated by Dr. Riggs and underwent emergent cardiac catheterization where the pulmonary report was patient had to critical stenosis of to obtuse marginal coronary arteries for which successful drug-eluting stents were placed. Currently the patient is on pressure support with mean arterial pressures greater than 65 sedated on mechanical ventilation. Subjective/Events-last exam Patient is been moved down to fourth medical floor. She is up sitting in a chair and looks much stronger. She complains of the fluid overload. Otherwise she is without complaint Review of Systems Neurological: Weakness Objective Exam Vital Signs Vital Signs Date Time Temp Pulse Resp B/P (MAP) Pulse Ox O2 Delivery O2 Flow Rate FiO2 01/11/19 10:48 94 Nasal Cannula 2.00 01/11/19 08:00 81 20 153/78 (103) 01/11/19 04:00 40 01/11/19 04:00 97.9 Capillary Refill : Less Than 3 Seconds General Appearance: No Apparent Distress, WD/WN, Chronically ill, Obese HEENT: Normal ENT Inspection, Moist Mucous Membranes Neck: Full Range of Motion, Normal Inspection Respiratory: Chest Non Tender, No Respiratory Distress, Accessory Muscle Use, D ecreased Breath Sounds, Wheezing Cardiovascular: Regular Rate, Rhythm, No Edema, No Gallop, No JVD, No Murmur (Difficult to hear over respiratory noises and mechanical ventilation however), Normal Peripheral Pulses Gastrointestinal: No Organomegaly, No Pulsatile Mass, Non Tender, Abnormal Bowel Sounds, Distended Extremity: Normal Capillary Refill, Normal Inspection, Normal Range of Motion, Non Tender, No Calf Tenderness, Pedal Edema Neurologic/Psychiatric: Alert, Oriented x3, No Motor/Sensory Deficits, 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 Imaging: Reviewed Imaging Report Assessment/Plan Assessment and Plan Assess & Plan/Chief Complaint Acute respiratory failure secondary to pneumonia and sepsis. Off the mechanical ventilator on 3 L nasal cannula-sats are 92 percent Non-ST segment elevation [place] status post stent placement Abdominal distention improved after bowels moved Sepsis currently on meropenem and Zyvox and Bactrim-still running a low-grade fever. Weakness and deconditioning ; inpatient rehabilitation evaluation Tobaccoism currently curtailed and counseled Critical Care Critically Ill Patient Diagnosis/Problems Diagnosis/Problems (1) Respiratory failure Status: Acute Qualifiers: Chronicity: unspecified Respiratory failure complication: unspecified whether with hypoxia or hypercapnia Qualified Codes: J96.90 - Respiratory failure, unspecified, unspecified whether with hypoxia or hypercapnia (2) Obesity Status: Chronic Qualifiers: Obesity type: due to excess calories Obesity classification: adult class 3 (BMI >= 40) Serious obesity comorbidity presence: with serious comorbidity Body mass index: BMI 40.0-44.9 Qualified Codes: E66.01 - Morbid (severe) obesity due to excess calories; Z68.41 - Body mass index (BMI) 40.0-44.9, adult (3) Leukocytosis Status: Acute Qualifiers: Leukocytosis type: leukemoid reaction Qualified Codes: D72.823 - Leukemoid reaction (4) NSTEMI, initial episode of care Status: Acute (5) Diabetes mellitus Status: Chronic Qualifiers: Diabetes mellitus type: type 2 Diabetes mellitus long-term insulin use: without long-term use Diabetes mellitus complication status: with unspecified complications Qualified Codes: E11.8 - Type 2 diabetes mellitus with unspecified complications Clinical Quality Measures AMI/AHF: ASA po Prior to arrival: No DVT/VTE Risk/Contraindication: Risk Factor Score Per Nursin RFS Level Per Nursing on Admit: 4+=Very High HIPOLITO BRAVO MD January 11, 2019 12:01
[2019-01-11] MEDS: ENOXAPARIN 40 MG/0.4 ML (LOVENOX) SYR SC SCH (12:06)
--- NOTE | 2019-01-11 15:14 | Progress Note-Cardiology ---
Cardiology SOAP Progress Note Subjective: Feels a little less short of breath No cp or palp or syncope Objective: I&O/Vital Signs 01/11/19 01/11/19 01/11/19 01/11/19 04:00 04:00 04:00 05:00 Temp 97.9 Pulse 75 74 Resp 29 21 B/P (MAP) 163/78 (106) 158/77 (104) Pulse Ox 97 O2 Delivery Vapotherm Vapotherm Vapotherm O2 Flow Rate 40.00 9.00 40.00 9.00 9.00 FiO2 40 01/11/19 01/11/19 01/11/19 01/11/19 05:56 06:00 06:04 06:10 Pulse 75 Resp 24 B/P (MAP) 161/79 (106) Pulse Ox 96 96 O2 Delivery Nasal Cannula Nasal Cannula Nasal Cannula Nasal Cannula O2 Flow Rate 3.00 3.00 2.00 2.00 01/11/19 01/11/19 01/11/19 01/11/19 07:00 07:00 08:00 08:00 Pulse 80 82 81 Resp 22 20 B/P (MAP) 157/78 (104) 153/78 (103) O2 Delivery Nasal Cannula Nasal Cannula High Flow N/C O2 Flow Rate 3.00 3.00 3.00 01/11/19 01/11/19 01/11/19 01/11/19 09:00 10:48 12:00 14:28 Temp 98.4 Pulse 66 Resp 22 B/P (MAP) 139/64 (89) Pulse Ox 94 94 O2 Delivery Nasal Cannula Nasal Cannula Nasal Cannula Nasal Cannula O2 Flow Rate 3.00 2.00 3.00 2.00 01/11/19 00:00 Intake Total 1375 ml Output Total 675 ml Balance 700 ml Weight (Pounds): 265 Weight (Ounces): 2.0 Weight (Calculated Kilograms): 120.849959 Constitutional: AAO x 3, well-developed, well-nourished Respiratory: chest is bilaterally symmetric, other (fair air entry, prolonged e xp, exp rhonchi, coarse basal crackles) Cardiovascular: regular rate-rhythm, S1 and S2, systolic murmur (soft PRIYANK at card basee) Gastrointestional: No tender; soft; No guarding, No rebound; audible bowel sounds Extremities: No clubbing, No cyanosis; significant edema (2-3+ edema of both legs) Neurologic/Psychiatric: oriented x 3, other (able to move all limbs equally) Skin: No rash on exposed areas, No ulcerations on exposed areas Results/Procedures: Labs Laboratory Tests 01/10/19 16:40: Glucometer 164H 01/10/19 21:44: Glucometer 137H 01/11/19 03:30: White Blood Count 16.9H, Red Blood Count 3.80L, Hemoglobin 12.0, Hematocrit 36, Mean Corpuscular Volume 95, Mean Corpuscular Hemoglobin 32, Mean Corpuscular Hemoglobin Concent 33, Red Cell Distribution Width 13.9, Platelet Count 270, Mean Platelet Volume 9.8, Neutrophils (%) (Auto) 72, Lymphocytes (%) (Auto) 14, Monocytes (%) (Auto) 14H, Eosinophils (%) (Auto) 1, Basophils (%) (Auto) 0, Neutrophils # (Auto) 12.2H, Lymphocytes # (Auto) 2.3, Monocytes # (Auto) 2.4H, Eosinophils # (Auto) 0.1, Basophils # (Auto) 0.0, Sodium Level 137, Potassium Level 3.8, Chloride Level 101, Carbon Dioxide Level 25, Anion Gap 11, Blood Urea Nitrogen 15, Creatinine 0.78, Estimat Glomerular Filtration Rate > 60, BUN/Creatinine Ratio 19, Glucose Level 125H, Calcium Level 8.6, Phosphorus Level 2.5, Magnesium Level 2.0 01/11/19 11:04: Glucometer 222H Microbiology 01/05/19 Blood Culture - Final, Complete No growth 01/10/19 MRSA Screen - Final, Complete MRSA not isolated Laboratory Tests 01/10/19 02:43 01/11/19 03:30 A/P: Assessment: CAD. NSTEMI led to coronary angiography on 01/02/2019: triple vessel disease, severe. Proximal OM artery had severe stenosis with haziness and CHRIS 2 flow which was likely the culprit artery. 2 drug-eluting stents placed. Severe LAD and moderate to severe RCA to be addressed later when the patient is much more stable Acute respiratory failure: COPD exacerbation due to RLL pneumonia Sepsis due to right lower lobe pneumonia Chronic, continuing tobacco use DM II Echo of 01/02/19: LVEF 50-55%, grade 2 quarles dysfxn, mild to mod MR Plan: * Continue current cardiac regimen * Monitor labs closely * She has been advised to refrain from tobacco use Clinical Quality Measures AMI/AHF: ASA po Prior to arrival: SHYANN Spaulding MD FACP FAC CCDS January 11, 2019 15:14
[2019-01-11] MEDS: ATORVASTATIN 80 MG (LIPITOR) TABLET PO SCH (20:23)
[2019-01-11] MEDS: MONTELUKAST 10 MG (SINGULAIR) TAB PO SCH (20:23)
[2019-01-12 00:04] VITALS: BP 158/71
--- NOTE | 2019-01-12 01:15 | NUR ---
WHILE THE PT WAS SITTING ON THE TOILET URINATION WAS NOTED WHILE A SANDERS CATHETER IS IN PLACE. BLADDER SCANNER SHOWING 0 MLS AT THIS TIME. 5 MLS NS ADDED TO THE SANDERS CATHETER BALLOON, TOTALING 15 MLS NS. PT TOLERATED WELL. WILL CONTINUE TO MONITOR.
[2019-01-12] MEDS: RT-ALBUTEROL/IPRATROPIUM 3 ML (DUONEB) VIAL INH SCH ×2 (02:22→08:01)
[2019-01-12 03:01] VITALS: BP 158/73
[2019-01-12] MEDS: MEROPENEM 500 MG in WATER (STERILE) FOR INJECTION 10 ML IV SCH (05:11)
[2019-01-12 05:16] LABS: BASOPHILS % (AUTO) 0 % (0-10); EOSINOPHILS # (AUTO) 0.2 10^3/uL (0.0-0.3); EOSINOPHILS % (AUTO) 2 % (0-10); HEMATOCRIT 37 % (35-52); HEMOGLOBIN 12.1 G/DL (11.5-16.0); LYMPHOCYTES # (AUTO) 2.4 X 10^3 (1.0-4.0); LYMPHOCYTES % (AUTO) 16 % (12-44); MEAN CORPUSCULAR HEMOGLOBIN 32 PG (25-34); MEAN CORPUSCULAR HGB CONC 33 G/DL (32-36); MEAN CORPUSCULAR VOLUME 97 FL (80-99); MEAN PLATELET VOLUME 9.8 FL (7.4-10.4); MONOCYTES % (AUTO) 13 % (0-12); NEUTROPHILS # (AUTO) 10.8 X 10^3 (1.8-7.8); NEUTROPHILS % (AUTO) 70 % (42-75); PLATELET COUNT 260 10^3/uL (130-400); RED CELL DISTRIBUTION WIDTH 13.9 % (10.0-14.5); WHITE BLOOD COUNT 15.5 10^3/uL (4.3-11.0)
[2019-01-12 05:41] LABS: ALANINE AMINOTRANSFERASE 40 U/L (0-55); ALBUMIN 3.1 GM/DL (3.2-4.5); ALKALINE PHOSPHATASE 63 U/L (40-136); BILIRUBIN,TOTAL 0.6 MG/DL (0.1-1.0); BUN/CREATININE RATIO 18; CALCIUM 8.5 MG/DL (8.5-10.1); CARBON DIOXIDE 25 MMOL/L (21-32); CHLORIDE 103 MMOL/L (98-107); CREATININE SERUM 0.74 MG/DL (0.60-1.30); GFR ESTIMATED > 60; GLUCOSE 122 MG/DL (70-105); MAGNESIUM 2.2 MG/DL (1.8-2.4); PHOSPHORUS 2.5 MG/DL (2.3-4.7); POTASSIUM 3.7 MMOL/L (3.6-5.0); SODIUM 136 MMOL/L (135-145); TOTAL PROTEIN 5.2 GM/DL (6.4-8.2)
[2019-01-12] MEDS: TRIM/SULFAMETH 160/800 (SEPTRA DS) TAB PO SCH (05:42)
[2019-01-12] MEDS: NYSTATIN ORAL SUSP 5 ML UDC PO SCH ×2 (05:44→10:50)
[2019-01-12] MEDS: inSUlin ASPART (NovoLOG) 1 UNIT/0.01 ML (CHARGE PER UNIT) SC SCH ×2 (05:45→10:50)
--- NOTE | 2019-01-12 07:28 | Diagnostic Imaging Report ---
INDICATION: Sepsis COMPARISON: 01/11/2019 FINDINGS: Single view of the chest demonstrates stable cardiac enlargement. There is minimal atelectasis in both bases. There is no pneumothorax or large effusion. PICC line stable. IMPRESSION: Stable minimal basilar atelectasis Dictated by: Dictated on workstation # [id number]
[2019-01-12 08:17] VITALS: BP 161/68
[2019-01-12] MEDS: PANTOPRAZOLE 40 MG (PROTONIX) VIAL IV SCH (08:55)
[2019-01-12] MEDS: ASPIRIN E.C. 81 MG (ECOTRIN) TAB PO SCH (08:56)
[2019-01-12] MEDS: TICAGRELOR 90 MG TABLET (BRILINTA) PO SCH (08:56)
[2019-01-12] MEDS: LINEZOLID IVPB 300 ML IV SCH (08:56)
[2019-01-12] MEDS: LORATADINE (CLARITIN) 10 MG TAB PO SCH (08:56)
[2019-01-12] MEDS: lisINopril 5 MG (PRINIVIL) TABLET PO SCH (08:56)
[2019-01-12] MEDS: meTOprolol TARTRATE 25 MG (LOPRESSOR) TABLET GT SCH (08:56)
[2019-01-12] MEDS: DOCUSATE SODIUM 100 MG (COLACE) CAP PO SCH (09:16)
--- NOTE | 2019-01-12 09:22 | Cardiology Progress Note ---
Cardiology SOAP Progress Note Subjective: Improved shortness of breath. Objective: I&O/Vital Signs 01/12/19 01/12/19 01/12/19 01/12/19 00:04 02:22 03:01 08:01 Temp 97.5 98.4 Pulse 64 69 Resp 20 20 B/P (MAP) 158/71 (100) 158/73 (101) Pulse Ox 96 95 96 93 O2 Delivery High Flow N/C Nasal Cannula High Flow N/C Nasal Cannula O2 Flow Rate 3.00 2.00 3.00 1.00 01/12/19 08:17 Temp 97.7 Pulse 73 Resp 20 B/P (MAP) 161/68 (99) Pulse Ox 95 O2 Delivery Nasal Cannula O2 Flow Rate 1.00 01/12/19 00:00 Intake Total 1180 ml Output Total 850 ml Balance 330 ml Weight (Pounds): 266 Weight (Ounces): 6.0 Weight (Calculated Kilograms): 120.824842 Constitutional: AAO x 3, well-developed, well-nourished Respiratory: chest is bilaterally symmetric, other (fair air entry, prolonged exp, exp rhonchi, coarse basal crackles) Cardiovascular: regular rate-rhythm, S1 and S2, systolic murmur (soft PRIYANK at card basee) Gastrointestional: No tender; soft; No guarding, No rebound; audible bowel so unds Extremities: No clubbing, No cyanosis; significant edema (2-3+ edema of both legs) Neurologic/Psychiatric: oriented x 3, other (able to move all limbs equally) Skin: No rash on exposed areas, No ulcerations on exposed areas Results/Procedures: Labs Laboratory Tests 01/11/19 15:39: Glucometer 187H 01/11/19 19:58: Glucometer 177H 01/12/19 05:05: White Blood Count 15.5H, Red Blood Count 3.82L, Hemoglobin 12.1, Hematocrit 37, Mean Corpuscular Volume 97, Mean Corpuscular Hemoglobin 32, Mean Corpuscular Hemoglobin Concent 33, Red Cell Distribution Width 13.9, Platelet Count 260, Mean Platelet Volume 9.8, Neutrophils (%) (Auto) 70, Lymphocytes (%) (Auto) 16, Monocytes (%) (Auto) 13H, Eosinophils (%) (Auto) 2, Basophils (%) (Auto) 0, Neutrophils # (Auto) 10.8H, Lymphocytes # (Auto) 2.4, Monocytes # (Auto) 2.0H, Eosinophils # (Auto) 0.2, Basophils # (Auto) 0.0, Sodium Level 136, Potassium Level 3.7, Chloride Level 103, Carbon Dioxide Level 25, Anion Gap 8, Blood Urea Nitrogen 13, Creatinine 0.74, Estimat Glomerular Filtration Rate > 60, BUN/Creatinine Ratio 18, Glucose Level 122H, Calcium Level 8.5, Corrected Calcium 9.2, Phosphorus Level 2.5, Magnesium Level 2.2, Total Bilirubin 0.6, Aspartate Amino Transf (AST/SGOT) 25, Alanine Aminotransferase (ALT/SGPT) 40, Alkaline Phosphatase 63, B-Type Natriuretic Peptide 540.2H, Total Protein 5.2L, Albumin 3.1L 01/12/19 10:45: Glucometer 207H Microbiology 01/10/19 Blood Culture - Preliminary, Resulted No growth 01/10/19 MRSA Screen - Final, Complete MRSA not isolated A/P: Assessment/Dx: NSTEMI, refractory to medical therapy. Acute respiratory failure, Active smoking, Diabetes, COPD Plan: Non-STEMI refractory to medical therapy, aspirin, Brilinta. 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 Proximal OM artery had severe stenosis with haziness and CHRIS 2 flow which is likely the culprit artery. 2 drug-eluting stents placed. Severe LAD and moderate to severe RCA to be addressed later when the patient is much more stable. No urgency to perform PCI to LAD. It can be done as an outpatient when all the medical issues have stabilized/resolved. The patient has sepsis with leukocytosis, respiratory acidosis, lactic acidosis, mild fever. Source is likely right lower lobe pneumonia. Improving sepsis, defer to Dr. Riggs. Acute respiratory failure, significantly improved. Sepsis, likely right lower lobe pneumonia. Broad-spectrum antibiotic. On cefepime and vancomycin. Active smoking, patient is strongly considering to quit. Diabetes, deferred to the primary team. Thank you for your consultation. Please call me if you have any questions. Bety Mercado MD, FACP, FACC, FSCAI, FHRS, CCDS Interventional Cardiology Cardiac Electrophysiology Vascular Medicine and Endovascular Interventions Clinical Quality Measures AMI/AHF: ASA po Prior to arrival: Jc Cheatham MD January 12, 2019 09:22
--- NOTE | 2019-01-12 09:53 | NUR ---
IRF Evaluation Order received to evaluate patient for the ARU. Chart reviewed and discussed with Dr. Torres - patient accepted. Met with patient and son, Seymour to discuss details of rehabilitation program. Patient is agreeable to required therapy regimen and admission. Thank you for this referral.
[2019-01-12] MEDS: ANIDULAFUNGIN INJECTION 100 MG in NS (IVPB) 100 ML IV SCH (10:07)
[2019-01-12 10:25] VITALS: BP 161/68
--- NOTE | 2019-01-12 10:25 | NUR ---
DISCHARGED TO ARU ROOM 223 PER W/C WITH P.T. REPORT CALLED TO NICOLETTE PAN.
--- NOTE | 2019-01-12 10:39 | Progress Note-Hospitalist ---
Progress Note Progress Notes/Assess & Plan Date Seen 01/12/19 Time Seen by Provider: 10:32 Assessment & Plan The patient is off the ventilator, on the [facility] floor, and ready for transfer to the inpatient rehabilitation facility. This is my first visit with her off the ventilator and unsedated. She is really quite charming. 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 She has been able to get to the bathroom FOR bowel movements. Therefore [place] will be removed. She has had a persistent granulocytosis since admission despite long-term antibiotics and improvement in her respiratory state. After discussion with clinical pharmacology all of her antibacterials will be discontinued save Bactrim. A hematology consultation has been requested relative to the persistent granulocytosis. Physical exam: The patient is slightly hoarse. She states that this is chronic and related to cigarettes and not necessarily to the intubation. Lungs show distant breath sounds but are clear. CV is regular without murmur. Abdomen is obese. Remedies show 1+ pedal edema. Impression: Pneumonia. 2.septic shock. 3.respiratory failure. 4.N STEMI in the early acute phase of pneumonia, septic shock, and treatment. ANDREA WHITING MD January 12, 2019 10:39
[2019-01-12] MEDS ORDERED: ENOXAPARIN 40 MG/0.4 ML (LOVENOX) SYR SC SCH (11:00)
--- NOTE | 2019-01-12 11:19 | Pulmonary Progress Note ---
Sepsis Event Evaluation Height, Weight, BMI Height: 6'0.00" Weight: 266lbs. 6.0oz. 120.240748vi; 34.8 BMI Method:Stated Exam Exam Vital Signs Date Time Temp Pulse Resp B/P (MAP) Pulse Ox O2 Delivery O2 Flow Rate FiO2 01/12/19 08:17 97.7 73 20 161/68 (99) 95 Nasal Cannula 1.00 01/12/19 08:01 93 Nasal Cannula 1.00 01/12/19 03:01 98.4 69 20 158/73 (101) 96 High Flow N/C 3.00 01/12/19 02:22 95 Nasal Cannula 2.00 01/12/19 00:04 97.5 64 20 158/71 (100) 96 High Flow N/C 3.00 01/11/19 22:20 93 Nasal Cannula 2.00 01/11/19 20:03 95 Nasal Cannula 3.00 01/11/19 20:00 Nasal Cannula 3.00 01/11/19 19:40 99.6 78 18 129/61 (83) 92 Nasal Cannula 3.00 01/11/19 16:00 98.7 69 20 141/64 (89) 96 Nasal Cannula 3.00 01/11/19 14:28 94 Nasal Cannula 2.00 01/11/19 12:00 98.4 66 22 139/64 (89) Nasal Cannula 3.00 I & O 01/12/19 07:00 Intake Total 1530 ml Output Total 1150 ml Balance 380 ml Height & Weight Height: 6'0.00" Weight: 266lbs. 6.0oz. 120.671938ai; 34.8 BMI Method:Stated General Appearance: No Apparent Distress, WD/WN, Chronically ill, Obese HEENT: Normal ENT Inspection, Moist Mucous Membranes Neck: Full Range of Motion, Normal Inspection Respiratory: Chest Non Tender, No Respiratory Distress, Accessory Muscle Use, Decreased Breath Sounds, Wheezing Cardiovascular: Regular Rate, Rhythm, No Edema, No Gallop, No JVD, No Murmur (Difficult to hear over respiratory noises and mechanical ventilation however), Normal Peripheral Pulses Capillary Refill: Less Than 3 Seconds Gastrointestinal: normal bowel sounds, non tender, soft, no organomegaly, no pulsatile mass Extremity: Normal Capillary Refill, Normal Inspection, Normal Range of Motion, Non Tender, No Calf Tenderness, Pedal Edema Neurologic/Psychiatric: Alert, Oriented x3, No Motor/Sensory Deficits, 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, breaker tender II-XII Norm as Tested Skin: Normal Color, Warm/Dry, Damp, Pallor Lymphatic: No Adenopathy Results Lab Laboratory Tests 01/11/19 03:30 01/12/19 05:05 Assessment/Plan Assessment/Plan Acute respiratory failure --slowly improving - Vapotherm Pulmonary edema with anasarca - improved -improving CP with NSTEMI and EKG changes s/p cath -Cardiology following -Morphine Fever and worsening leukocytosis despite decreasing Steroids -Solumedrol is d/c'd - Merrem and Zyvox - repan culture pending repeat MRSA nasal swab -pending -Eraxis -Cefepime auto stopped 01/09 yesterday -No diarrhea Thrush -nystatin SS CT scan shows possible PE - Doubt PE -Lovenox PPX dose -Bilateral dopplers -- neg Metabolic encephalopathy secondary to meds and medical condition Severe sepsis secondary to pneumonia with Stenotrophomonas - present at admissi on --Pt was septic at admission from pneumonia. - Eraxis, Bactrim -Pt is on severe sepsis protocol -Reilly culture, check UA -MRSA swab - is negative COPDAE -SVNs -Singulair, Claritin Atelectasis -Start IS -Increase activity Hx of COPD with persistent tobacco use -education -oxygen -monitor Probable JAC -Out pt testing Debility -PT/OT -Up to chair -Advance diet to regular JOSE LUIS MONTOYA DO January 12, 2019 11:18
[2019-01-13] MEDS ORDERED: fluCOnazole (DIFLUCAN) 100 MG TAB PO SCH (09:00)
[2019-01-13] MEDS ORDERED: PANTOPRAZOLE 40 MG (PROTONIX) TAB PO SCH (09:00)
--- NOTE | 2019-01-15 12:09 | Physician Query Clarification ---
PQ-CHF Specificity Admission Date: January 01, 2019 at 18:35 Discharge Date: January 12, 2019 at 10:50 The medical record reflects the following clinical scenario: History/Risk Factors: Sepsis, NSTEMI, Pneumonia, Acute respiratory failure Clinical Findings: Acute coronary syndrome with secondary congestive heart failure leading to acute respiratory failure per Dr. Schwab 01/06 PN, BNP 894.7 Treatment: IVBumex 2 mg, IV lasix 60 mg Question: Can you further specify the acuity &/or type of CHF per the clinical indicators above? Please document a response in the Progress Notes or Discharge Summary. 1. Acuity: Acute, Chronic or Acute on Chronic 2. Type: Systolic, Diastolic or Systolic & Diastolic 3. Unspecified: CHF cannot be further specified regarding type or acuity 4. Other, with explanation of clinical findings 5. Clinically undetermined, no explanation for clinical findings PHYSICIAN RESPONSE Acuity: Acute Type: Diastolic Please remember a lack of response to the above will prompt a phone page by CDI/Coding staff. In responding to this query, please exercise your independent professional judgment. The purpose of this communication is to more accurately reflect the complexity of your patients condition. The fact that a question is asked does not imply that any particular answer is desired or expected. Thank you for your timely response to this clarification. Requestors name: [employer] THIS PHYSICIAN QUERY FORM IS A PERMANENT PART OF THE MEDICAL RECORD FANTA VALDEZ January 15, 2019 12:09 Jc KHAN MD January 16, 2019 09:16
[2019-01-16] MEDS ORDERED: LISI-552 PO (09:07)
[2019-01-16] MEDS ORDERED: NYST1000 PO (09:07)
[2019-01-16] MEDS ORDERED: ASPI-983 PO (09:07)
[2019-01-16] MEDS ORDERED: IPRA3AMP31 INH (09:07)
[2019-01-16] MEDS ORDERED: METO-333 GT (09:07)
[2019-01-16] MEDS ORDERED: BUSP7.5T5 PO (09:07)
[2019-01-16] MEDS ORDERED: POTA10CA43 PO (09:07)
[2019-01-16] MEDS ORDERED: MONT10TA24 PO (09:07)
[2019-01-16] MEDS ORDERED: GLIM1TAB PO (09:07)
[2019-01-16] MEDS ORDERED: TICA90TA PO (09:07)
[2019-01-16] MEDS ORDERED: LORA10TA7 PO (09:07)
[2019-01-16] MEDS ORDERED: ATOR80TA76 PO (09:07)
== END 2019-01-12 10:50 | DRG 853 ==
LOC: ER FS 16:48 → ICU 18:35 → 4TH 01-11 08:51
PROVIDERS: ADMIT Internal Medicine; ATTEND Internal Medicine
PROC: 0BH17EZ Insertion of Endotracheal Airway into Trachea, Via Natural or Artificial Opening (ICD-10-PCS; principal; 2019-01-02)
PROC: 5A1955Z Respiratory Ventilation, Greater than 96 Consecutive Hours (ICD-10-PCS; 2019-01-02)
PROC: 027035Z Dilation of Coronary Artery, One Artery with Two Drug-eluting Intraluminal Devices, Percutaneous Approach (ICD-10-PCS; 2019-01-02)
PROC: 4A023N7 Measurement of Cardiac Sampling and Pressure, Left Heart, Percutaneous Approach (ICD-10-PCS; 2019-01-02)
PROC: B2111ZZ Fluoroscopy of Multiple Coronary Arteries using Low Osmolar Contrast (ICD-10-PCS; 2019-01-02)
PROC: B2151ZZ Fluoroscopy of Left Heart using Low Osmolar Contrast (ICD-10-PCS; 2019-01-02)
DX: A41.59 Other Gram-negative sepsis (principal); R65.20 Severe sepsis without septic shock; J15.6 Pneumonia due to other Gram-negative bacteria; I21.4 Non-ST elevation (NSTEMI) myocardial infarction; J96.00 Acute respiratory failure, unspecified whether with hypoxia or hypercapnia; R57.0 Cardiogenic shock; I25.42 Coronary artery dissection; J44.1 Chronic obstructive pulmonary disease with (acute) exacerbation; I50.31 Acute diastolic (congestive) heart failure; I11.0 Hypertensive heart disease with heart failure; E87.2 Acidosis; J44.0 Chronic obstructive pulmonary disease with (acute) lower respiratory infection; E11.9 Type 2 diabetes mellitus without complications; E66.01 Morbid (severe) obesity due to excess calories; E87.5 Hyperkalemia; G47.33 Obstructive sleep apnea (adult) (pediatric); I45.10 Unspecified right bundle-branch block; F17.210 Nicotine dependence, cigarettes, uncomplicated; Z85.820 Personal history of malignant melanoma of skin; Z68.36 Body mass index [BMI] 36.0-36.9, adult; G93.41 Metabolic encephalopathy; J98.11 Atelectasis; B37.0 Candidal stomatitis
CPT/HCPCS: 36415; 36600; 71045; 71275; 80048; 80053; 80061; 80202; 81000; 82140; 82805; 82962; 83605; 83735; 83874; 83880; 84100; 84478; 84484; 85007; 85025; 85027; 85379; 85610; 85730; 87040; 87070; 87077; 87081; 87186; 87205; 87804; 93005; 93306; 93458; 93970; 94002; 94003; 94640; 94660; 94760; 94799; 96372; 96374; 96375; 96376

== ENCOUNTER 2019-01-12 10:50 | Inpatient (IN) | payer MEDICARE, OTHER | END 2019-01-17 10:35 | disposition home or self-care (01) ==

== ENCOUNTER 2019-01-22 08:49 | Inpatient (IN) | payer MEDICARE, OTHER ==
[~2019-01-22] VITALS: Ht 182.9 cm; Wt 112.5 kg
[2019-01-22] VITALS (13 sets, daily range): BP systolic 84–159; BP diastolic 56–116
[~2019-01-22 08:49] MED LIST: AMLO10TA7 PO; ASPI-983 PO; ATOR80TA76 PO; BUSP7.5T5 PO; CHOL10007 PO; CITA40TA11 PO; GLIM1TAB PO; GLIM4TAB PO; IPRA3AMP31 INH; KRIL1CAP18 PO; LIRA0.6P SC; LISI-552 PO; LORA10TA7 PO; LOSA100T57 PO; MELO15TA39 PO; METO-333 GT; MONT10TA24 PO; MULT1TAB69 PO; NYST1000 PO; NYST15OI13 TOP; PANT40TA3 PO; POTA10CA43 PO; TICA90TA PO
--- NOTE | 2019-01-22 09:17 | ED Respiratory ---
General Chief Complaint: Respiratory Problems Stated Complaint: SOB Source: patient, family Exam Limitations: no limitations History of Present Illness Date Seen by Provider: January 22, 2019 Time Seen by Provider: 09:05 Initial Comments 63-year-old female recently discharged from [facility] with history of an NSTEMI, sepsis and hypoxia. She presents with some increased difficulty breathing. No associated chest pain or palpitations. She's not had any fever or chills. She thought she would stop by to be evaluated given her history of previous problems. She has a history of melanoma on her neck and arm without known recurrence. Timing/Duration: yesterday Allergies and Home Medications Allergies Coded Allergies: No Known Drug Allergies (Unverified , 01/01/19) Home Medications Aspirin 81 Mg Tablet.dr, 81 MG PO DAILY Prescribed by: YOGESH STALLWORTH on 01/16/19906 Atorvastatin Calcium 80 Mg Tablet, 80 MG PO HS Prescribed by: YOGESH STALLWORTH on 01/16/19906 Buspirone HCl 7.5 Mg Tablet, 7.5 MG PO BID Prescribed by: YOGESH STALLWORTH on 01/16/19906 Cholecalciferol (Vitamin D3) 1,000 Unit Capsule, 1,000 UNIT PO DAILY, (Reported) Citalopram Hydrobromide 40 Mg Tablet, 40 MG PO DAILY, (Reported) Glimepiride 1 Mg Tablet, 1 MG PO BID Prescribed by: YOGESH STALLWORTH on 01/16/19906 Ipratropium/Albuterol Sulfate 3 Ml Ampul.neb, 3 ML INH RTQID Prescribed by: YOGESH STALLWORTH on 01/16/19906 Krill/Om-3/Dha/Epa/Phospho/Ast 1 Each Capsule, 1,000 MG PO DAILY, (Reported) Liraglutide 0.6 Mg/0.1 Ml Pen.injctr, 1.6 MG SC HS, (Reported) Lisinopril 20 Mg Tablet, 20 MG PO DAILY@0900 Prescribed by: YOGESH STALLWORTH on 01/16/19906 Loratadine 10 Mg Tablet, 10 MG PO DAILY Prescribed by: YOGESH STALLWORTH on 01/16/19906 Metoprolol Tartrate 25 Mg Tablet, 25 MG GT BID Prescribed by: YOGESH STALLWORTH on 01/16/19906 Montelukast Sodium 10 Mg Tablet, 10 MG PO HS Prescribed by: YOGESH STALLWORTH on 01/16/19906 Multivitamin 1 Each Tablet, 1 TAB PO DAILY, (Reported) Nystatin 15 Gm Oint...g., TOP BID PRN for RASH, (Reported) Nystatin 100,000 Unit/1 Ml Oral.susp, 5 ML PO Q6HR Prescribed by: YOGESH STALLWORTH on 01/16/19906 Pantoprazole Sodium 40 Mg Tablet.dr, 40 MG PO DAILY, (Reported) Potassium Chloride 10 Meq Capsule.er, 10 MEQ PO DAILY Prescribed by: YOGESH STALLWORTH on 01/16/19906 Ticagrelor 90 Mg Tablet, 90 MG PO BID Prescribed by: YOGESH STALLWORTH on 01/16/19906 Patient Home Medication List Home Medication List Reviewed: Yes Review of Systems Review of Systems Constitutional: see HPI, malaise EENTM: see HPI Respiratory: see HPI, cough; No phlegm Cardiovascular: no symptoms reported Gastrointestinal: no symptoms reported Genitourinary: no symptoms reported Musculoskeletal: no symptoms reported Skin: no symptoms reported Psychiatric/Neurological: No Symptoms Reported Hematologic/Lymphatic: No Symptoms Reported Immunological/Allergic: no symptoms reported Past Jkonghl-Pgmmhd-Yztfbw Hx Past Med/Social Hx: Reviewed Nursing Past Med/Soc Hx Patient Social History Type Used: Cigarettes 2nd Hand Smoke Exposure: No Recent Hopitalizations: Yes Immunizations Up To Date PED Vaccines UTD: Yes Date of Pneumonia Vaccine: Jan 25, 2016 Seasonal Allergies Seasonal Allergies: No Past Medical History Surgeries: Yes Section, Hysterectomy Respiratory: Yes COPD Currently Using CPAP: No Currently Using BIPAP: No Cardiac: Yes Hypertension 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 Sexually Transmitted Disease: No HIV/AIDS: No Genitourinary: No Gastrointestinal: No Musculoskeletal: No Endocrine: No Diabetes, Non-Insulin dep HEENT: No Cancer: Yes Melanoma Did You Recieve Any Treatments: No What Type of Treatment Did You: Surgical Intervention Psychosocial: No Integumentary: Yes (Melanoma on Right arm Removed) Blood Disorders: No Adverse Reaction/Blood Tranf: No Family Medical History Alcoholism 19 MOTHER Alzheimer's disease 19 FATHER Arthritis 19 FATHER Asthma 19 FATHER Cardiovascular disease 19 FATHER Cataracts 19 FATHER Diabetes mellitus Hypertension 19 FATHER 19 MOTHER Myocardial infarction 19 FATHER Osteoporosis 19 MOTHER Parkinson's disease 19 MOTHER Respiratory disorder 19 MOTHER No Family History of: Glaucoma Physical Exam Vital Signs - First Documented 01/22/19 09:00 Temp 99.4 Pulse 84 Resp 20 B/P (MAP) 160/77 (104) Pulse Ox 96 O2 Delivery Room Air Capillary Refill : less than 2 sec Height: 6'0.00" Weight: 251lbs. 0.0oz. 113.086982np; 37.5 BMI Method:Stated General Appearance: WD/WN, no apparent distress Eyes: Bilateral Eye Normal Inspection, Bilateral Eye PERRL, Bilateral Eye EOMI HEENT: PERRL/EOMI, normal ENT inspection, pharynx normal; No scleral icterus (R ), No scleral icterus (L) Neck: non-tender, full range of motion, supple, normal inspection Respiratory: chest non-tender, lungs clear, normal breath sounds, no respiratory distress, no accessory muscle use; No respiratory distress; decreased breath sounds Cardiovascular: regular rate, rhythm, no edema, no gallop, no JVD, no murmur Gastrointestinal: normal bowel sounds, non tender, soft Extremities: normal range of motion, non-tender, normal inspection, no pedal edema, no calf tenderness, normal capillary refill Neurologic/Psychiatric: floor supervisor II-XII nml as tested, no motor/sensory deficits, alert, normal mood/affect, oriented x 3 Skin: normal color, warm/dry Lymphatic: no adenopathy Focused Exam Lactate Level 01/22/19 10:40: Lactic Acid Level Laboratory Tests Test 01/22/19 10:40 Procedures/Interventions Date of ETT Placement: January 02, 2019 Time of ETT Placement: 1119 Progress/Results/Core Measures Suspected Sepsis SIRS Temperature: Pulse: Respiratory Rate: Laboratory Tests 01/22/19 09:20: White Blood Count 7.8 Blood Pressure / Mean: 01/22/19 10:40: Laboratory Tests 01/22/19 09:20: Creatinine 0.57L, INR Comment 1.0, Platelet Count 339, Total Bilirubin 0.6 Results/Orders Lab Results Laboratory Tests Test 01/22/19 09:20 01/22/19 10:25 01/22/19 10:40 Range/Units White Blood Count 7.8 4.3-11.0 10^3/uL Red Blood Count 3.79 L 4.35-5.85 10^6/uL Hemoglobin 11.8 11.5-16.0 G/DL Hematocrit 37 35-52 % Mean Corpuscular Volume 97 80-99 FL Mean Corpuscular Hemoglobin 31 25-34 PG Mean Corpuscular Hemoglobin Concent 32 32-36 G/DL Red Cell Distribution Width 12.9 10.0-14.5 % Platelet Count 339 130-400 10^3/uL Mean Platelet Volume 9.3 7.4-10.4 FL Neutrophils (%) (Auto) 72 42-75 % Lymphocytes (%) (Auto) 17 12-44 % Monocytes (%) (Auto) 8 0-12 % Eosinophils (%) (Auto) 2 0-10 % Basophils (%) (Auto) 1 0-10 % Neutrophils # (Auto) 5.6 1.8-7.8 X 10^3 Lymphocytes # (Auto) 1.3 1.0-4.0 X 10^3 Monocytes # (Auto) 0.7 0.0-1.0 X 10^3 Eosinophils # (Auto) 0.2 0.0-0.3 10^3/uL Basophils # (Auto) 0.1 0.0-0.1 10^3/uL Prothrombin Time 13.0 12.2-14.7 SEC INR Comment 1.0 0.8-1.4 Activated Partial Thromboplast Time 32 24-35 SEC Sodium Level 141 135-145 MMOL/L Potassium Level 3.1 L 3.6-5.0 MMOL/L Chloride Level 102 98-107 MMOL/L Carbon Dioxide Level 25 21-32 MMOL/L Anion Gap 14 5-14 MMOL/L Blood Urea Nitrogen 7 7-18 MG/DL Creatinine 0.57 L 0.60-1.30 MG/DL Estimat Glomerular Filtration Rate > 60 BUN/Creatinine Ratio 12 Glucose Level 182 H 70-105 MG/DL Calcium Level 8.8 8.5-10.1 MG/DL Corrected Calcium 9.0 8.5-10.1 MG/DL Magnesium Level 1.3 L 1.8-2.4 MG/DL Total Bilirubin 0.6 0.1-1.0 MG/DL Aspartate Amino Transf (AST/SGOT) 24 5-34 U/L Alanine Aminotransferase (ALT/SGPT) 58 H 0-55 U/L Alkaline Phosphatase 86 40-136 U/L Myoglobin 26.7 10.0-92.0 NG/ML Troponin T 72 H <=10 NG/L Pro-B-Type Natriuretic Peptide 3387.0 H <75.0 PG/ML Total Protein 6.3 L 6.4-8.2 GM/DL Albumin 3.7 3.2-4.5 GM/DL Lipase 46 8-78 U/L My Orders Orders - MARYSOL MONTAGUE MD Cbc With Automated Diff (01/22/19 09:10) Magnesium (01/22/19 09:10) Chest 1 View Ap/Pa Only (01/22/19 09:10) Ekg Tracing (01/22/19 09:10) Comprehensive Metabolic Panel (01/22/19 09:10) Myoglobin Serum (01/22/19 09:10) Protime With Inr (01/22/19 09:10) Partial Thromboplastin Time (01/22/19 09:10) O2 (01/22/19 09:10) Monitor-Rhythm Ecg Trace Only (01/22/19 09:10) Ed Iv/Invasive Line Start (01/22/19 09:10) Lipase (01/22/19 09:10) Blood Culture (01/22/19 09:40) Lactic Acid Analyzer (01/22/19 09:40) Ceftriaxone For Iv Use (Rocephin For I (01/22/19 09:45) Azithromycin Injection (Zithromax Inject (01/22/19 09:45) Probnp Fs (01/22/19 09:42) Troponin T (01/22/19 10:22) Ua Culture If Indicated (01/22/19 10:22) Ondansetron Injection (Zofran Injectio (01/22/19 11:05) Troponin T (01/22/19 11:19) Ondansetron Injection (Zofran Injectio (01/22/19 11:30) Medications Given in ED Current Medications Medications Dose Ordered Sig/Ciara Route Start Time Stop Time Status Last Admin Dose Admin Azithromycin 500 mg/Sodium Chloride 250 ml @ 250 mls/hr ONCE ONCE IV 01/22/19 09:45 01/22/19 10:44 DC 01/22/19 10:53 250 MLS/HR Ceftriaxone Sodium 1000 mg/ Sterile Water 10 ml @ 200 mls/hr ONCE ONCE IV 01/22/19 09:45 01/22/19 09:47 DC 01/22/19 10:53 200 MLS/HR Ondansetron HCl 4 mg STK-MED ONCE .ROUTE 01/22/19 11:05 01/22/19 11:10 DC 01/22/19 11:12 4 MG Vital Signs/I&O 01/22/19 09:00 Temp 99.4 Pulse 84 Resp 20 B/P (MAP) 160/77 (104) Pulse Ox 96 O2 Delivery Room Air Capillary Refill : Progress Note : Time: 09:15 Progress Note Patient in no distress. O2 sat is 97% we'll proceed with cardiac workup. Discussed with patient and who understand and agree with plan. 0940 chest x-ray demonstrates changes consistent with pneumonia. With her recent history, we will obtain blood cultures, lactic acid and administer antibiotics. I explained this to the patient and her who agree. 1104 Discussed findings with patient and . I recommended hospitalization due to elevated troponin and CXR findings. I left a message for Dr. Stallworth, hospitalist valuation consultant and who took care of her the recent hospitalization. ECG Initial ECG Impression Date: January 22, 2019 Initial ECG Impression Time: 09:16 Initial ECG Rate: 80 Initial ECG Rhythm: Normal Sinus Initial ECG Intervals Interventricular conduction delay noted. nonspecific ST changes are evident. Initial ECG Impression: Nonspecific Changes Diagnostic Imaging Diagonstic Imaging: Xray Plain Films/CT/US/NM/MRI: chest Comments NAME: [facility]ICHAR[facility]ON [facility] REC#: [id number] PT STATUS: REG ER : 1955 PHYSICIAN: MARYSOL MONTAGUE MD ADMIT DATE: 01/22/19/ER FS Draft Date of Exam:01/22/19 CHEST 1 VIEW AP/PA ONLY INDICATION: Dyspnea and chest tightness AP view of the chest obtained with comparison made to the study of 01/14/2019. Heart size and pulmonary vascularity within normal limits. There is mild bibasilar atelectasis and/or scarring. No consolidation or significant pleural fluid is seen. IMPRESSION: Mild bibasilar atelectasis and/or pneumonitis. Dictated on workstation # [id number] Dict: 01/22/1933 Trans: 01/22/19 0934 [facility] [id number] Interpreted by: SATNAM OSPINA MD Electronically signed by: Critical Care Note Critical Care Total Time (minutes) 35 Progress NSTEMI, pneumonia, medical intervention, discussion with specialist. Departure Communication (Admissions) Time/Spoke to Admitting Phy: 10:56 Time/Spoke to Consulting Phy: 11:20 Pseudomonal Risk: COPD HCAP with risk for mulit-drug: Hospitalized>2d (pst 90d) Patient allergy/sensitivity/re: None Pneumonia order set available: CAP Non ICU Impression Primary Impression: NSTEMI (non-ST elevated myocardial infarction) Additional Impressions: Pneumonia Qualified Codes: J18.9 - Pneumonia, unspecified organism CHF (congestive heart failure) Qualified Codes: I50.9 - Heart failure, unspecified COPD (chronic obstructive pulmonary disease) Qualified Codes: J44.1 - Chronic obstructive pulmonary disease with (acute) exacerbation CAD (coronary artery disease) Qualified Codes: I25.10 - Atherosclerotic heart disease of [place] coronary artery without angina pectoris Disposition: XFER SHT-TRM HOSP Condition: Improved Admissions Decision to Admit Reason: Admit from ER (General) Decision to Admit/Date: January 22, 2019 Time/Decision to Admit Time: 11:00 Transfer Time Spoke to Accepting Phy: 10:[address] Stallworth, accepting. discussed with Dr. Em who agrees with transfer and will see patient upon arrival. Transfer Time: 11:31 Method of Transfer: EMS Departure-Patient Inst. Decision time for Depature: 11:32 Referrals: MARYSOL ROWE MD (PCP/Family) Primary Care Physician MARYSOL MONTAGUE MD January 22, 2019 09:17
--- NOTE | 2019-01-22 09:34 | Diagnostic Imaging Report ---
INDICATION: Dyspnea and chest tightness AP view of the chest obtained with comparison made to the study of 01/14/2019. Heart size and pulmonary vascularity within normal limits. There is mild bibasilar atelectasis and/or scarring. No consolidation or significant pleural fluid is seen. IMPRESSION: Mild bibasilar atelectasis and/or pneumonitis. Dictated by: Dictated on workstation # [id number]
[2019-01-22 09:41] LABS: BASOPHILS # (AUTO) 0.1 10^3/uL (0.0-0.1); BASOPHILS % (AUTO) 1 % (0-10); EOSINOPHILS # (AUTO) 0.2 10^3/uL (0.0-0.3); EOSINOPHILS % (AUTO) 2 % (0-10); HEMATOCRIT 37 % (35-52); HEMOGLOBIN 11.8 G/DL (11.5-16.0); LYMPHOCYTES # (AUTO) 1.3 X 10^3 (1.0-4.0); LYMPHOCYTES % (AUTO) 17 % (12-44); MEAN CORPUSCULAR HEMOGLOBIN 31 PG (25-34); MEAN CORPUSCULAR HGB CONC 32 G/DL (32-36); MEAN CORPUSCULAR VOLUME 97 FL (80-99); MEAN PLATELET VOLUME 9.3 FL (7.4-10.4); MONOCYTES # (AUTO) 0.7 X 10^3 (0.0-1.0); MONOCYTES % (AUTO) 8 % (0-12); NEUTROPHILS # (AUTO) 5.6 X 10^3 (1.8-7.8); NEUTROPHILS % (AUTO) 72 % (42-75); PLATELET COUNT 339 10^3/uL (130-400); RED CELL DISTRIBUTION WIDTH 12.9 % (10.0-14.5); WHITE BLOOD COUNT 7.8 10^3/uL (4.3-11.0)
[2019-01-22] MEDS ORDERED: AZITHROMYCIN INJECTION 500 MG in NS (IVPB) 250 ML IV ONE (09:45)
[2019-01-22] MEDS ORDERED: cefTRIAXone FOR IV USE 1,000 MG in WATER (STERILE) FOR INJECTION 10 ML IV ONE (09:45)
[2019-01-22 09:57] LABS: BUN/CREATININE RATIO 12; CALCIUM 8.8 MG/DL (8.5-10.1); CARBON DIOXIDE 25 MMOL/L (21-32); CHLORIDE 102 MMOL/L (98-107); CREATININE SERUM 0.57 MG/DL (0.60-1.30); GFR ESTIMATED > 60; GLUCOSE 182 MG/DL (70-105); POTASSIUM 3.1 MMOL/L (3.6-5.0); SODIUM 141 MMOL/L (135-145)
[2019-01-22 09:58] LABS: ALANINE AMINOTRANSFERASE 58 U/L (0-55); ALBUMIN 3.7 GM/DL (3.2-4.5); ALKALINE PHOSPHATASE 86 U/L (40-136); BILIRUBIN,TOTAL 0.6 MG/DL (0.1-1.0); LIPASE 46 U/L (8-78); MAGNESIUM 1.3 MG/DL (1.8-2.4); TOTAL PROTEIN 6.3 GM/DL (6.4-8.2)
[2019-01-22] MEDS ORDERED: ONDANSETRON 4 MG/2 ML (SDV) Z0FRAN ONE (11:05)
[2019-01-22] MEDS ORDERED: ONDANSETRON 4 MG/2 ML (SDV) Z0FRAN IVP ONE (11:30)
[2019-01-22 12:18] LABS: BILIRUBIN,URINE NEGATIVE (NEGATIVE); CLARITY,URINE CLEAR; COLOR,URINE YELLOW; GLUCOSE, URINE (UA) NEGATIVE (NEGATIVE); KETONES,URINE NEGATIVE (NEGATIVE); NITRITE,URINE NEGATIVE (NEGATIVE); PH,URINE 6.5 (5-9); PROTEIN,URINE NEGATIVE (NEGATIVE)
[2019-01-22 12:19] LABS: BACTERIA,URINE FEW /HPF; LEUKOCYTE ESTERASE ,URINE TRACE (NEGATIVE); UROBILINOGEN,URINE 0.2 MG/DL (NORMAL)
[2019-01-22] MEDS ORDERED: CATHETER FLUSH 10 ML SYR IV PRN (14:15)
[2019-01-22] MEDS ORDERED: ATOR80TA64 PO (14:28)
[2019-01-22] MEDS ORDERED: LISI-552 PO (14:28)
[2019-01-22] MEDS ORDERED: POTA10CA43 PO (14:28)
[2019-01-22] MEDS ORDERED: GLIM1TAB PO (14:28)
[2019-01-22] MEDS ORDERED: ASPI-983 PO (14:28)
[2019-01-22] MEDS ORDERED: BUSP7.5T5 PO (14:28)
[2019-01-22] MEDS ORDERED: NYST1000 PO (14:28)
[2019-01-22] MEDS ORDERED: TICA90TA PO (14:28)
[2019-01-22] MEDS ORDERED: METO-333 PO (14:28)
[2019-01-22] MEDS ORDERED: LORA10TA7 PO (14:28)
[2019-01-22] MEDS ORDERED: IPRA3AMP31 NEB (14:28)
[2019-01-22] MEDS ORDERED: MONT10TA24 PO (14:28)
[2019-01-22] MEDS ORDERED: ONDANSETRON 4 MG (ZOFRAN) ORAL DISSOLVE TAB PO PRN (14:30)
[2019-01-22] MEDS ORDERED: ACETAMINOPHEN 500 MG TAB (TYLENOL) PO PRN (14:30)
[2019-01-22] MEDS ORDERED: DOCUSATE SODIUM 100 MG (COLACE) CAP PO PRN (14:30)
[2019-01-22] MEDS ORDERED: diphenhydrAMINE 25 MG TAB (BENADRYL) PO PRN (14:30)
[2019-01-22] MEDS ORDERED: HYDROcodone/APAP 5 MG/325 MG (LORTAB) TAB PO PRN (14:30)
[2019-01-22] MEDS ORDERED: MELATONIN 3 MG TABLET PO PRN (14:30)
[2019-01-22] MEDS ORDERED: ONDANSETRON 4 MG/2 ML (SDV) Z0FRAN IVP PRN (14:30)
[2019-01-22] MEDS ORDERED: CALCIUM CARBONATE 500 MG (TUMS) TAB.CHEW PO PRN (14:30)
[2019-01-22] MEDS ORDERED: ALPRAZolam 0.25 MG (XANAX) TAB PO PRN (14:30)
--- NOTE | 2019-01-22 14:30 | NUR ---
SPOKE WITH THE PATIENT AND SHE VERIFIED SHE HAS BEEN FOLLOWING HER DISCHARGE ORDERS FROM HER RECENT DISCHARGE FROM REHAB EXACTLY HOW THEY WERE PRESCRIBED. THE ONLY PROBLEM WAS SHE HAD DIFFICULTY FILLING HER NEBULIZER SOLUTION AND MACHINE SO SHE HAS NOT STARTED THOSE AT HOME YET. SHE STATES SHE THINKS IT WAS FINALLY RESOLVED AND SUPPOSED TO BE READY FOR VAMP STRAP IRONER TODAY HOWEVER NOW SHE HAS BEEN RE ADMITTED. I LEFT IT ON THE MED REC IT WAS ORDERED UPON DISCHARGE AND SHE HOPES TO NOT HAVE ANY TROUBLE GETTING IT SOON SHE IS DISCHARGED AGAIN.
--- NOTE | 2019-01-22 14:37 | Pulmonary Consultation ---
History of Present Illness History of Present Illness Date of Consultation 01/22/19 14:31 Time Seen by Provider: 14:31 Date of Admission History of Present Illness 63yo with hx of melanoma, and recent hospitalization with NSTEMI, and sepsis. She was recently discharged from hospital she presented to ED secondary to worsening dyspnea. Denies f/ns/c. While in the ED pt was found to have i nfiltrations on CXR and an elevated troponin. I am consulted for pulmonary/CC management. Allergies and Home Medications Allergies Coded Allergies: No Known Drug Allergies (Unverified , 01/01/19) Home Medications Aspirin 81 Mg Tablet.dr, 81 MG PO DAILY, (Reported) Atorvastatin Calcium 80 Mg Tablet, 80 MG PO HS, (Reported) Buspirone HCl 7.5 Mg Tablet, 7.5 MG PO BID, (Reported) Cholecalciferol (Vitamin D3) 1,000 Unit Capsule, 1,000 UNIT PO DAILY, (Reported) Citalopram Hydrobromide 40 Mg Tablet, 40 MG PO DAILY, (Reported) Glimepiride 1 Mg Tablet, 1 MG PO BID, (Reported) Ipratropium/Albuterol Sulfate 3 Ml Ampul.neb, 3 ML NEB QID, (Reported) Isosorbide Mononitrate 30 Mg Tab.er.24h, 30 MG PO DAILY Prescribed by: ERIN SANTIAGO on 01/23/19 0725 Krill/Om-3/Dha/Epa/Phospho/Ast 1 Each Capsule, 1,000 MG PO DAILY, (Reported) Liraglutide 0.6 Mg/0.1 Ml Pen.injctr, 1.6 MG SC HS, (Reported) Lisinopril 20 Mg Tablet, 20 MG PO DAILY, (Reported) Loratadine 10 Mg Tablet, 10 MG PO DAILY, (Reported) Metoprolol Tartrate 25 Mg Tablet, 25 MG PO BID, (Reported) Montelukast Sodium 10 Mg Tablet, 10 MG PO HS, (Reported) Multivitamin 1 Each Tablet, 1 TAB PO DAILY, (Reported) Nitroglycerin 0.4 Mg Tab.subl, 0.4 MG SL UD Use one tablet under tongue every 5 minutes up to 3 tablets for chest pain Prescribed by: ERIN SANTIAGO on 01/23/19 0725 Nystatin 15 Gm Oint...g., TOP BID PRN for RASH, (Reported) Nystatin 100,000 Unit/1 Ml Oral.susp, 5 ML PO Q6H, (Reported) 6 DAY SUPPLY FILLED 01-16-19 Pantoprazole Sodium 40 Mg Tablet.dr, 40 MG PO DAILY, (Reported) Potassium Chloride 10 Meq Capsule.er, 10 MEQ PO DAILY, (Reported) Ticagrelor 90 Mg Tablet, 90 MG PO BID, (Reported) Past Vtivkyq-Lwypvq-Gonwev Hx Past Med/Social Hx: Reviewed Nursing Past Med/Soc Hx Patient Social History Alcohol Use: Denies Use Recreational Drug Use: No Smoking Status: Former Smoker Type Used: Cigarettes Former Smoker, Quit: January 08, 2019 2nd Hand Smoke Exposure: No Recent Foreign Travel: No Contact w/Someone Who Travel: No Recent Infectious Disease Expo: No Recent Hopitalizations: Yes (VIA [employer] 01/17/19) Physical Abuse: No Sexual Abuse: No Mistreated: No Fear: No Immunizations Up To Date PED Vaccines UTD: Yes Date of Pneumonia Vaccine: Jan 25, 2016 Seasonal Allergies Seasonal Allergies: No Past Medical History Surgeries: Yes Section, Coronary Stent, Hysterectomy Respiratory: Yes COPD Currently Using CPAP: No Currently Using BIPAP: No Cardiac: Yes Heart Attack, Hypertension 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 Sexually Transmitted Disease: No HIV/AIDS: No Genitourinary: No Gastrointestinal: No Musculoskeletal: No Endocrine: No Diabetes, Non-Insulin dep HEENT: No Cancer: Yes Melanoma Did You Recieve Any Treatments: No What Type of Treatment Did You: Surgical Intervention Psychosocial: No Integumentary: Yes (Melanoma on Right arm Removed) Blood Disorders: No Adverse Reaction/Blood Tranf: No Family Medical History Alcoholism 19 MOTHER Alzheimer's disease 19 FATHER Arthritis 19 FATHER Asthma 19 FATHER Cardiovascular disease 19 FATHER Cataracts 19 FATHER Diabetes mellitus Hypertension 19 FATHER 19 MOTHER Myocardial infarction 19 FATHER Osteoporosis 19 MOTHER Parkinson's disease 19 MOTHER Respiratory disorder 19 MOTHER No Family History of: Glaucoma Review of Systems Time Seen by Provider: 14:36 Sepsis Event Evaluation Height, Weight, BMI Height: 6'0" Weight: 245lbs. 0.0oz. 111.026539xt; 37.5 BMI Method:Stated Exam Exam Vital Signs Date Time Temp Pulse Resp B/P (MAP) Pulse Ox O2 Delivery O2 Flow Rate FiO2 01/22/19 14:18 79 01/22/19 13:10 99.1 81 18 149/60 (89) 95 Room Air 01/22/19 09:00 99.4 84 20 160/77 (104) 96 Room Air Height & Weight Height: 6'0" Weight: 245lbs. 0.0oz. 111.308026kk; 37.5 BMI Method:Stated General Appearance: Anxious, Chronically ill HEENT: Normal ENT Inspection, Pharynx Normal Neck: Full Range of Motion, Non Tender, Supple Respiratory: Chest Non Tender, Crackles, Decreased Breath Sounds Cardiovascular: No Edema, No Gallop Capillary Refill: Less Than 3 Seconds Gastrointestinal: normal bowel sounds, non tender, soft Extremity: Normal Capillary Refill Neurologic/Psychiatric: Alert Skin: Normal Color, Warm/Dry Results Lab Laboratory Tests 01/22/19 09:20 Assessment/Plan Assessment/Plan NSTEMI -Cardiology following recent hx with PNA with Stenotrophomonas - S/p BCTM -No leukocytosis or fever currently Metabolic lactic acidosis Atelectasis -Start IS -Increase activity Hx of COPD with persistent tobacco use -education -oxygen -monitor Probable JAC -Out pt testing Debility -PT/OT JOSE LUIS MONTOYA DO January 22, 2019 14:36
--- NOTE | 2019-01-22 15:00 | NUR ---
RECEIVED REPORT FROM NADIRA PAN, THIS RN TO ASSUME CARE OF PT FOR REMAINDER OF SHIFT. PT CURRENTLY SITTING UP IN BED W/ AT BEDSIDE. VSS, ON ROOM AIR. NO C/O AT THIS TIME. 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 CALL LIGHT W/IN REACH. WILL CONT TO MONITOR.
[2019-01-22 15:03] LABS: BASOPHILS % (AUTO) 0 % (0-10); EOSINOPHILS # (AUTO) 0.1 10^3/uL (0.0-0.3); EOSINOPHILS % (AUTO) 1 % (0-10); HEMATOCRIT 35 % (35-52); HEMOGLOBIN 11.2 G/DL (11.5-16.0); LYMPHOCYTES % (AUTO) 14 % (12-44); MEAN CORPUSCULAR HEMOGLOBIN 31 PG (25-34); MEAN CORPUSCULAR HGB CONC 32 G/DL (32-36); MEAN CORPUSCULAR VOLUME 97 FL (80-99); MEAN PLATELET VOLUME 9.5 FL (7.4-10.4); MONOCYTES # (AUTO) 0.6 X 10^3 (0.0-1.0); MONOCYTES % (AUTO) 8 % (0-12); NEUTROPHILS # (AUTO) 5.6 X 10^3 (1.8-7.8); NEUTROPHILS % (AUTO) 78 % (42-75); PLATELET COUNT 315 10^3/uL (130-400); RED CELL DISTRIBUTION WIDTH 13.2 % (10.0-14.5); WHITE BLOOD COUNT 7.2 10^3/uL (4.3-11.0)
[2019-01-22] MEDS ORDERED: NYSTATIN OINTMENT 30 GM TUBE TOP PRN (15:15)
[2019-01-22] MEDS ORDERED: DILTIAZEM 25 MG/5 ML INJ (CARDIZEM) VIAL IVP ONE (16:00)
--- NOTE | 2019-01-22 16:10 | Consultation-Cardiology ---
HPI-Cardiology Cardiology Consultation Date of Consultation 01/22/19 Date of Admission Time Seen by Provider: 16:04 Indication: Shortness of breath HPI and 63 years old lady with history of coronary artery disease, had stenting to the ostial and proximal obtuse marginal branch, has severe multivessel disease. Was doing well until this morning when she started having shortness of breath and chest discomfort, described it as tightness in the retrosternal area. No palpitation. No syncope or near syncopal episode, came into the emergency room and noted to have mild infiltrate on her chest x-ray. Has slight elevation in troponin level. Currently feeling better. No active chest pain. No palpitation. No syncope or near syncopal episodes. Home Medications & Allergies Allergies: Coded Allergies: No Known Drug Allergies (Unverified , 01/01/19) Home Medication List Reviewed: Yes [id number] Hx Patient Social History Marital Status: Employed/Student: employed Alcohol Use: Denies Use Recreational Drug Use: No Smoking Status: Former Smoker Type Used: Cigarettes 2nd Hand Smoke Exposure: No Recent Foreign Travel: No Recent Infectious Disease Expo: No Recent Hopitalizations: Yes (VIA [employer] 01/17/19) Immunizations Up To Date Date of Pneumonia Vaccine: Jan 25, 2016 Past Medical History discussed below Family Medical History Family History: Alcoholism 19 MOTHER Alzheimer's disease 19 FATHER Arthritis 19 FATHER Asthma 19 FATHER Cardiovascular disease 19 FATHER Cataracts 19 FATHER Diabetes mellitus Hypertension 19 FATHER 19 MOTHER Myocardial infarction 19 FATHER Osteoporosis 19 MOTHER Parkinson's disease 19 MOTHER Respiratory disorder 19 MOTHER No Family History of: Glaucoma Review of Systems-General Review of Systems Constitutional: no symptoms reported, see HPI, malaise EENTM: see HPI, no symptoms reported Respiratory: see HPI, cough, dyspnea on exertion; No phlegm; short of breath Cardiovascular: see HPI, chest pain; No edema, No Hx of Intervention, No palpitations, No syncope, No vascular heart diseas, No other Gastrointestinal: no symptoms reported, see HPI Genitourinary: no symptoms reported, see HPI Musculoskeletal: no symptoms reported, see HPI Skin: no symptoms reported, see HPI Psychiatric/Neurological: No Symptoms Reported, See HPI Reviewed Test Results Reviewed Test Results Lab Laboratory Tests Test 01/22/19 09:20 01/22/19 10:25 01/22/19 10:40 5/30/19 11:55 Range/Units White Blood Count 7.8 4.3-11.0 10^3/uL Red Blood Count 3.79 L 4.35-5.85 10^6/uL Hemoglobin 11.8 11.5-16.0 G/DL Hematocrit 37 35-52 % Mean Corpuscular Volume 97 80-99 FL Mean Corpuscular Hemoglobin 31 25-34 PG Mean Corpuscular Hemoglobin Concent 32 32-36 G/DL Red Cell Distribution Width 12.9 10.0-14.5 % Platelet Count 339 130-400 10^3/uL Mean Platelet Volume 9.3 7.4-10.4 FL Neutrophils (%) (Auto) 72 42-75 % Lymphocytes (%) (Auto) 17 12-44 % Monocytes (%) (Auto) 8 0-12 % Eosinophils (%) (Auto) 2 0-10 % Basophils (%) (Auto) 1 0-10 % Neutrophils # (Auto) 5.6 1.8-7.8 X 10^3 Lymphocytes # (Auto) 1.3 1.0-4.0 X 10^3 Monocytes # (Auto) 0.7 0.0-1.0 X 10^3 Eosinophils # (Auto) 0.2 0.0-0.3 10^3/uL Basophils # (Auto) 0.1 0.0-0.1 10^3/uL Prothrombin Time 13.0 12.2-14.7 SEC INR Comment 1.0 0.8-1.4 Activated Partial Thromboplast Time 32 24-35 SEC Sodium Level 141 135-145 MMOL/L Potassium Level 3.1 L 3.6-5.0 MMOL/L Chloride Level 102 98-107 MMOL/L Carbon Dioxide Level 25 21-32 MMOL/L Anion Gap 14 5-14 MMOL/L Blood Urea Nitrogen 7 7-18 MG/DL Creatinine 0.57 L 0.60-1.30 MG/DL Estimat Glomerular Filtration Rate > 60 BUN/Creatinine Ratio 12 Glucose Level 182 H 70-105 MG/DL Calcium Level 8.8 8.5-10.1 MG/DL Corrected Calcium 9.0 8.5-10.1 MG/DL Magnesium Level 1.3 L 1.8-2.4 MG/DL Total Bilirubin 0.6 0.1-1.0 MG/DL Aspartate Amino Transf (AST/SGOT) 24 5-34 U/L Alanine Aminotransferase (ALT/SGPT) 58 H 0-55 U/L Alkaline Phosphatase 86 40-136 U/L Myoglobin 26.7 10.0-92.0 NG/ML Troponin T 72 H 63 H <=10 NG/L Pro-B-Type Natriuretic Peptide 3387.0 H <75.0 PG/ML Total Protein 6.3 L 6.4-8.2 GM/DL Albumin 3.7 3.2-4.5 GM/DL Lipase 46 8-78 U/L Urine Color YELLOW Urine Clarity CLEAR Urine pH 6.5 5-9 Urine Specific [place] <=1.005 1.016-1.022 Urine Protein NEGATIVE NEGATIVE Urine Glucose (UA) NEGATIVE NEGATIVE Urine Ketones NEGATIVE NEGATIVE Urine Nitrite NEGATIVE NEGATIVE Urine Bilirubin NEGATIVE NEGATIVE Urine Urobilinogen 0.2 NORMAL MG/DL Urine Leukocyte Esterase TRACE H NEGATIVE Urine RBC (Auto) NEGATIVE NEGATIVE Urine RBC NONE /HPF Urine WBC 5-10 H /HPF Urine Squamous Epithelial Cells 10-25 H /HPF Urine Crystals NONE /LPF Urine Bacteria FEW H /HPF Urine Casts NONE /LPF Urine Mucus NEGATIVE /LPF Urine Culture Indicated NO Lactic Acid Level 2.33 *H 0.50-2.00 MMOL/L Test 01/22/19 14:28 01/22/19 14:50 Range/Units Phosphorus Level 3.9 2.3-4.7 MG/DL Troponin I 0.045 H <0.028 NG/ML White Blood Count 7.2 4.3-11.0 10^3/uL Red Blood Count 3.59 L 4.35-5.85 10^6/uL Hemoglobin 11.2 L 11.5-16.0 G/DL Hematocrit 35 35-52 % Mean Corpuscular Volume 97 80-99 FL Mean Corpuscular Hemoglobin 31 25-34 PG Mean Corpuscular Hemoglobin Concent 32 32-36 G/DL Red Cell Distribution Width 13.2 10.0-14.5 % Platelet Count 315 130-400 10^3/uL Mean Platelet Volume 9.5 7.4-10.4 FL Neutrophils (%) (Auto) 78 H 42-75 % Lymphocytes (%) (Auto) 14 12-44 % Monocytes (%) (Auto) 8 0-12 % Eosinophils (%) (Auto) 1 0-10 % Basophils (%) (Auto) 0 0-10 % Neutrophils # (Auto) 5.6 1.8-7.8 X 10^3 Lymphocytes # (Auto) 1.0 1.0-4.0 X 10^3 Monocytes # (Auto) 0.6 0.0-1.0 X 10^3 Eosinophils # (Auto) 0.1 0.0-0.3 10^3/uL Basophils # (Auto) 0.0 0.0-0.1 10^3/uL Lactic Acid Level 1.18 0.50-2.00 MMOL/L Physical Exam Physical Exam Vital Signs Vital Signs - First Documented 01/22/19 09:00 Temp 99.4 Pulse 84 Resp 20 B/P (MAP) 160/77 (104) Pulse Ox 96 O2 Delivery Room Air Capillary Refill : Less Than 3 Seconds Height, Weight, BMI Height: 6'0.00" Weight: 248lbs. 0.0oz. [id number]; 33.6 BMI Method:Stated General Appearance: No Apparent Distress, WD/WN Eyes: Bilateral Eye Normal Inspection, Bilateral Eye PERRL, Bilateral Eye EOMI HEENT: PERRL/EOMI, TMs Normal, Normal ENT Inspection, Pharynx Normal, Moist Mucous Membranes Neck: Full Range of Motion, Normal Inspection, Non Tender, Supple, Carotid Bruit Respiratory: Chest Non Tender, Normal Breath Sounds, No Accessory Muscle Use, No Respiratory Distress Cardiovascular: Regular Rate, Rhythm, No Edema, No Gallop, No JVD, No Murmur, Normal Peripheral Pulses Gastrointestinal: Normal Bowel Sounds, No Organomegaly, No Pulsatile Mass, Non Tender, Soft Back: Normal Inspection, No CVA Tenderness, No Vertebral Tenderness Extremity: Normal Capillary Refill, Normal Inspection, Normal Range of Motion, Non Tender, No Calf Tenderness, No Pedal Edema Neurologic/Psychiatric: Alert, Oriented x3, No Motor/Sensory Deficits, 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 Skin: Normal Color, Warm/Dry Lymphatic: No Adenopathy A/P-Cardiology Admission Diagnosis Unstable angina Coronary artery disease Non-ST elevation myocardial infarction Hypertension Hyperlipidemia Assessment/Plan Chest pain, shortness of breath, non-ST elevation myocardial infarction, slight elevation in troponin level. Patient had a cardiac catheterization done by Dr. Mercado on January 02, 2019 showing severe proximal and ostial obtuse marginal branch underwent 2 stent deployment to that artery. In addition she had severe diffuse disease in the proper circumflex artery, severe long segment stenosis in the mid LAD and severe stenosis at the midright coronary artery that will be addressed at a later point. I will continue monitoring troponin level, add long-acting nitroglycerin to her medication and continue on current medication Abnormal EKG with poor R-wave progression in the anterior leads. No acute ST-T changes, left axis deviation. Continue to monitor Pulmonary infiltrates and shortness of breath, mild elevation lactic acid. Managed by Dr. Keely Juarez, educated on smoking cessation Hypertension, controlled and monitored Hyperlipidemia started on Lipitor 80 mg daily Diabetes mellitus, followed and managed by primary care physician BMI 33, obesity, educated on weight loss Clinical Quality Measures DVT/VTE Risk/Contraindication: Risk Factor Score Per Nursin RFS Level Per Nursing on Admit: 3=High Pneumonia: Pseudomonal Risk: COPD HCAP with risk for mulit-drug: Hospitalized>2d (pst 90d) ERIN SANTIAGO MD January 22, 2019 16:10
[2019-01-22] MEDS: ISOSORBIDE MONONITRATE 30 MG (IMDUR) TAB PO SCH (16:24)
[2019-01-22] MEDS: GLIMEPIRIDE 1 MG (AMARYL) TAB PO SCH (16:24)
--- NOTE | 2019-01-22 16:32 | Diagnostic Imaging Report ---
PROCEDURE: US Venous Lower Ext [place]. INDICATION: Pneumonia. Myocardial infarction. Dyspnea and chest tightness. TECHNIQUE: Grayscale with color-flow and Doppler waveform evaluation of the bilateral lower extremity deep venous systems. CORRELATION STUDY: None FINDINGS: Color and grayscale sonographic images demonstrate no intraluminal defect within the visualized portion of the common femoral, superficial femoral and/or popliteal veins to suggest thrombus formation. These vessels demonstrate normal response to compression and augmentation. No soft tissue fluid collection. IMPRESSION: 1. Negative for deep venous thrombosis of either leg. Dictated by: Dictated on workstation # [id number]
[2019-01-22] MEDS ORDERED: RT-ALBUTEROL/IPRATROPIUM 3 ML (DUONEB) VIAL INH SCH (18:00)
[2019-01-22] MEDS: RT-ALBUTEROL/IPRATROPIUM 3 ML (DUONEB) VIAL IH SCH (19:47)
[2019-01-22] MEDS: busPIRone 15 MG (BUSPAR) TABLET PO SCH (21:00)
[2019-01-22] MEDS ORDERED: MONTELUKAST 10 MG (SINGULAIR) TAB PO SCH (21:00)
[2019-01-22] MEDS ORDERED: ATORVASTATIN 80 MG (LIPITOR) TABLET PO SCH (21:00)
[2019-01-22] MEDS: SENNA W/DOCUSATE (SENOKOT S) TABLET PO SCH (21:01)
[2019-01-22] MEDS: meTOprolol TARTRATE 25 MG (LOPRESSOR) TABLET PO SCH (21:01)
[2019-01-22] MEDS: TICAGRELOR 90 MG TABLET (BRILINTA) PO SCH (21:01)
[2019-01-22] MEDS: POLYETHYLENE GLYCOL 17 GM (MIRALAX) PACK PO SCH (21:11)
[2019-01-22] MEDS: CATHETER FLUSH 10 ML SYR IV SCH (23:07)
[2019-01-23] VITALS (13 sets, daily range): BP systolic 105–133; BP diastolic 52–84
[2019-01-23 03:26] LABS: HEMOGLOBIN 10.3 G/DL (11.5-16.0); MEAN PLATELET VOLUME 9.6 FL (7.4-10.4); RED CELL DISTRIBUTION WIDTH 13.3 % (10.0-14.5); WHITE BLOOD COUNT 7.5 10^3/uL (4.3-11.0)
[2019-01-23 03:51] LABS: ALANINE AMINOTRANSFERASE 47 U/L (0-55); ALBUMIN 3.2 GM/DL (3.2-4.5); ALKALINE PHOSPHATASE 72 U/L (40-136); BILIRUBIN,TOTAL 0.5 MG/DL (0.1-1.0); BUN/CREATININE RATIO 13; CALCIUM 8.4 MG/DL (8.5-10.1); CARBON DIOXIDE 26 MMOL/L (21-32); CHLORIDE 107 MMOL/L (98-107); CHOLESTEROL 122 MG/DL (< 200); CREATININE SERUM 0.64 MG/DL (0.60-1.30); GFR ESTIMATED > 60; GLUCOSE 78 MG/DL (70-105); HDL CHOLESTEROL 28 MG/DL (40-60); MAGNESIUM 1.3 MG/DL (1.8-2.4); POTASSIUM 3.3 MMOL/L (3.6-5.0); SODIUM 142 MMOL/L (135-145); TOTAL PROTEIN 5.4 GM/DL (6.4-8.2); TRIGLYCERIDES 190 MG/DL (<150); VLDL CHOLESTEROL 38 MG/DL (5-40)
--- NOTE | 2019-01-23 05:27 | Pulmonary Progress Note ---
Subjective Time Seen by a Provider: 10:53 Sepsis Event Evaluation Height, Weight, BMI Height: 6'0.00" Weight: 248lbs. 0.0oz. 112.155408ct; 33.6 BMI Method:Stated Focused Exam Lactate Level 01/22/19 10:40: Lactic Acid Level 2.33*H 01/22/19 14:50: Lactic Acid Level 1.18 Exam Exam Vital Signs Date Time Temp Pulse Resp B/P (MAP) Pulse Ox O2 Delivery O2 Flow Rate FiO2 01/23/19 04:00 79 14 128/67 (87) 95 Room Air 01/23/19 04:00 Room Air 01/23/19 04:00 98.3 01/23/19 03:00 81 18 123/65 (84) 94 Room Air 01/23/19 02:00 78 26 115/56 (75) 91 Room Air 01/23/19 01:00 85 20 121/61 (81) 93 Room Air 01/23/19 01:00 85 01/23/19 00:00 98.9 01/23/19 00:00 77 18 113/72 (86) 95 Room Air 01/23/19 00:00 Room Air 01/22/19 23:00 80 18 106/56 (73) 95 Room Air 01/22/19 22:00 87 18 84/63 (70) 94 Room Air 01/22/19 21:00 88 18 126/73 (90) 95 Room Air 01/22/19 20:00 80 16 120/95 (103) 95 Room Air 01/22/19 20:00 Room Air 01/22/19 19:48 95 Room Air 01/22/19 19:45 98.3 01/22/19 19:00 77 17 123/64 (83) 95 Room Air 01/22/19 19:00 77 01/22/19 18:00 78 16 136/72 (93) 96 Room Air 01/22/19 17:00 81 22 135/82 (99) 97 Room Air 01/22/19 16:00 98.0 01/22/19 16:00 77 20 159/116 (130) 96 Room Air 01/22/19 15:45 79 25 151/80 (103) 97 Room Air 01/22/19 15:30 78 21 144/88 (106) 96 Room Air 01/22/19 15:21 Room Air 01/22/19 15:15 77 13 131/81 (98) 97 Room Air 01/22/19 15:00 13 146/91 (109) 97 Room Air 01/22/19 14:30 82 96 Room Air 01/22/19 14:18 79 01/22/19 14:15 131/79 (96) 97 Room Air 01/22/19 13:10 98 Nasal Cannula 01/22/19 13:10 99.1 81 18 149/60 (89) 95 Room Air 01/22/19 09:00 99.4 84 20 160/77 (104) 96 Room Air I & O 01/23/19 07:00 Intake Total 800 ml Output Total 600 ml Balance 200 ml Height & Weight Height: 6'0.00" Weight: 248lbs. 0.0oz. 112.698173jf; 33.6 BMI Method:Stated General Appearance: No Apparent Distress, WD/WN HEENT: PERRL/EOMI, TMs Normal, Normal ENT Inspection, Pharynx Normal, Moist Mucous Membranes Neck: Full Range of Motion, Normal Inspection, Non Tender, Supple, Carotid Bruit Respiratory: Chest Non Tender, Normal Breath Sounds, No Accessory Muscle Use, No Respiratory Distress Cardiovascular: Regular Rate, Rhythm, No Edema, No Gallop, No JVD, No Murmur, Normal Peripheral Pulses Capillary Refill: Less Than 3 Seconds Gastrointestinal: normal bowel sounds, non tender, soft Extremity: Normal Capillary Refill, Normal Inspection, Normal Range of Motion, Non Tender, No Calf Tenderness, No Pedal Edema Neurologic/Psychiatric: Alert, Oriented x3, No Motor/Sensory Deficits, 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 Skin: Normal Color, Warm/Dry Lymphatic: No Adenopathy Results Lab Laboratory Tests 01/22/19 09:20 01/22/19 14:50 01/23/19 02:59 Assessment/Plan Assessment/Plan NSTEMI -Cardiology following -Await their recommendations Metabolic lactic acidosis - resolved - secondary to cardiac Resolving PNA -- Doubt active PNA -Monitor Atelectasis -Start IS -Increase activity Hx of COPD - currently stable -education -SVNs -oxygen -monitor Probable JAC -Out pt testing recent hx with PNA with Stenotrophomonas - S/p BCTM -No leukocytosis or fever currently JOSE LUIS MONTOYA DO January 23, 2019 05:27
[2019-01-23] MEDS: MAGNESIUM 1 GM/100 ML IVPB 100 ML IV SCH ×2 (05:56→08:29)
[2019-01-23] MEDS: CATHETER FLUSH 10 ML SYR IV SCH (05:57)
[2019-01-23] MEDS ORDERED: POTASSIUM CL 10MEQ/50ML IVPB 50 ML IV SCH (06:00)
[2019-01-23] MEDS ORDERED: MAGNESIUM 1 GM/100 ML IVPB 100 ML IV SCH (06:00)
[2019-01-23] MEDS ORDERED: KCL 20 MEQ TAB (K-DUR) PO SCH (06:00)
[2019-01-23] MEDS: RT-ALBUTEROL/IPRATROPIUM 3 ML (DUONEB) VIAL IH SCH ×2 (06:29→10:34)
[2019-01-23] MEDS ORDERED: KCL 20 MEQ TAB (K-DUR) PO ONE (07:00)
[2019-01-23] MEDS ORDERED: KCL 10 MEQ TAB (MICRO K) PO ONE (07:00)
[2019-01-23] MEDS ORDERED: VITAMIN D3 1,000 UNITS (CHOLECALCIFEROL) TABLET PO SCH (07:00)
[2019-01-23] MEDS ORDERED: MULTIVIT W/MINERALS TAB (THERAGRAN M) PO SCH (07:00)
[2019-01-23] MEDS ORDERED: KCL 10 MEQ TAB (MICRO K) PO SCH (07:00)
--- NOTE | 2019-01-23 07:21 | Cardiology Progress Note ---
Subjective Date Seen by Provider: January 23, 2019 Time Seen by Provider: 07:19 Subjective/Events-last exam patient is laying down in bed, feeling better. Denied any further episode of chest pain or shortness of breath. Reporting improvement after receiving Isosorbide. Review of Systems General: No Chills, No Night Sweats, No Fatigue, No Malaise, No Appetite, No Other HEENT: No Head Aches, No Visual Changes, No Eye Pain, No Ear Pain, No Dysphasia, No Sinus Congestion, No Post Nasal Drip, No Sore Throat, No Other Pulmonary: No Dyspnea, No Cough, No Pleuritic Chest Pain, No Other Cardiovascular: No: Chest Pain, Palpitations, Orthopnea, Paroxysmal Noc. Dyspnea, Edema, Lt Headedness, Other Focused Exam Lactate Level 01/22/19 10:40: Lactic Acid Level 2.33*H 01/22/19 14:50: Lactic Acid Level 1.18 Objective-Cardiology Exam Last Set of Vital Signs Vital Signs 01/23/19 01/23/19 01/23/19 04:00 06:00 06:29 Temp 98.3 Pulse 78 Resp 21 B/P (MAP) 133/66 (88) Pulse Ox 93 O2 Delivery Room Air Capillary Refill : Less Than 3 Seconds I&O Intake and Output 01/23/19 00:00 Intake Total 800 ml Output Total 600 ml Balance 200 ml Intake Oral 800 ml Output Urine Total 600 ml # Voids 1 General: Alert, Oriented X3, Cooperative HEENT: Atraumatic, PERRLA Neck: Supple, No JVD, No Thyromegaly Lungs: Clear to Auscultation, Normal Air Movement Heart: Regular Rate, Normal S1, Normal S2, No Murmurs Abdomen: Normal Bowel Sounds, Soft, No Tenderness, No Hepatosplenomegaly, No Masses Extremities: No Clubbing, No Cyanosis, No Edema, Normal Pulses, No Tenderness/Swelling Skin: No Rashes, No Breakdown, No Significant Lesion Neuro: Normal Gait, Normal Speech, Strength at 5/5 X4 Ext, Normal Tone, Sensation Intact Psych/Mental Status: Mental Status NL, Mood NL Results Lab Laboratory Tests 01/22/19 09:20 01/22/19 14:50 01/23/19 02:59 A/P-Cardiology Admission Diagnosis Unstable angina Coronary artery disease Non-ST elevation myocardial infarction Hypertension Hyperlipidemia Assessment/Plan Chest pain, shortness of breath, non-ST elevation myocardial infarction, slight elevation in troponin level. Patient had a cardiac catheterization done by Dr. Mercado on January 02, 2019 showing severe proximal and ostial obtuse marginal branch underwent 2 stent deployment to that artery. In addition she had severe diffuse disease in the proper circumflex artery, severe long segment stenosis in the mid LAD and severe stenosis at the midright coronary artery, discussed in length management plan, recommended referral for bypass surgery, patient requested [facility]. I'll make arrangement. Unstable angina, started on Isorbid bite, educated about using sublingual nitroglycerin as needed Abnormal EKG with poor R-wave progression in the anterior leads. No acute ST-T changes, left axis deviation. Continue to monitor Pulmonary infiltrates and shortness of breath, mild elevation lactic acid. Managed by Dr. Keely Juarez, educated on smoking cessation Hypertension, controlled and monitored Hyperlipidemia started on Lipitor 80 mg daily Diabetes mellitus, followed and managed by primary care physician BMI 33, obesity, educated on weight loss Clinical Quality Measures DVT/VTE Risk/Contraindication: Risk Factor Score Per Nursin RFS Level Per Nursing on Admit: 3=High Pneumonia: Pseudomonal Risk: COPD HCAP with risk for mulit-drug: Hospitalized>2d (pst 90d) ERIN SANTIAGO MD January 23, 2019 07:21
[2019-01-23] MEDS ORDERED: ISOS30TA3 PO (07:25)
[2019-01-23] MEDS ORDERED: NITR0.4T42 SL (07:25)
[2019-01-23] MEDS: meTOprolol TARTRATE 25 MG (LOPRESSOR) TABLET PO SCH (08:30)
[2019-01-23] MEDS: busPIRone 15 MG (BUSPAR) TABLET PO SCH (08:31)
[2019-01-23] MEDS: GLIMEPIRIDE 1 MG (AMARYL) TAB PO SCH (08:31)
[2019-01-23] MEDS: TICAGRELOR 90 MG TABLET (BRILINTA) PO SCH (08:31)
[2019-01-23] MEDS: ISOSORBIDE MONONITRATE 30 MG (IMDUR) TAB PO SCH (08:32)
--- NOTE | 2019-01-23 08:38 | Diagnostic Imaging Report ---
INDICATION: Pneumonia. Frontal chest obtained at 3:35 a.m. and compared to yesterday. FINDINGS: Heart is borderline in size. Mediastinal silhouette is unremarkable. There are chronic appearing increased interstitial markings. There is some mild infiltrate versus atelectasis in the right medial base which is unchanged. There is no new abnormality. IMPRESSION: Borderline heart size with mild chronic appearing increased interstitial markings. Mild infiltrate or atelectasis in right medial base is unchanged. There is no new abnormality. Dictated by: Dictated on workstation # [id number]
[2019-01-23] MEDS ORDERED: LORATADINE (CLARITIN) 10 MG TAB PO SCH (09:00)
[2019-01-23] MEDS ORDERED: lisINopril 20 MG (PRINIVIL) TABLET PO SCH (09:00)
[2019-01-23] MEDS ORDERED: PANTOPRAZOLE 40 MG (PROTONIX) TAB PO SCH (09:00)
[2019-01-23] MEDS ORDERED: ASPIRIN E.C. 81 MG (ECOTRIN) TAB PO SCH (09:00)
[2019-01-23] MEDS: POLYETHYLENE GLYCOL 17 GM (MIRALAX) PACK PO SCH (09:11)
[2019-01-23] MEDS: SENNA W/DOCUSATE (SENOKOT S) TABLET PO SCH (09:11)
--- NOTE | 2019-01-23 10:56 | Short Stay Summary-Hospitalist ---
History of Present Illness HPI/Chief Complaint CC: NSTEMI HPI: This is a 63-year-old white female clinic patient of Dr. Hagen who I know very well following severe debility and ICU myopathy and requiring inpatient rehabilitation for 7 days due to respiratory failure exacerbation of COPD and non-ST elevation PA at that time requiring stent placement but more heart di shiv was in need of multiple interventions who presented the [facility] less than 1 week after discharge shortness of breath found to have elevated troponin and elevated BNP so Dr. Em was consulted and he reviewed cardiac catheterization report along with Dr. Villegas and the consensus was to refer to [facility] for bypass surgery so she was placed on Imdur with good results overnight. She will remain on aspirin and Brilinta along with the new Imdur and will have close follow-up with cardiothoracic surgery at for bypass surgery. Source: patient, family, RN/MD, old records Exam Limitations: no limitations Date Seen 01/23/19 Time Seen by a Provider: 10:00 Attending Physician Gretchen Stallworth DO PCP Kade Hagen MD Referring Physician Date of Admission January 22, 2019 at 11:59 Home Medications & Allergies Home Medications Reviewed patient Home Medication Reconciliation performed by pharmacy medication reconciliations telephone technician and/or nursing. Patients Allergies have been reviewed. Allergies Allergies Coded Allergies No Known Drug Allergies (Unverified01/01/19) Past Jcljwuy-Poshbv-Xwyzoa Hx Past Med/Social Hx: Reviewed Nursing Past Med/Soc Hx, Reviewed and Corrections made Patient Social History Marrital Status: Employed/Student: employed Alcohol Use: Denies Use Recreational Drug Use: No Smoking Status: Former Smoker Former Smoker, Quit: January 08, 2019 Type Used: Cigarettes 2nd Hand Smoke Exposure: No Recent Foreign Travel: No Contact w/other who traveled: No Recent Hopitalizations: Yes (VIA [email or web address] 01/17/19) Recent Infectious Disease Expo: No Immunizations Up To Date Pediatric: Yes Date of Pneumonia Vaccine: Jan 25, 2016 Seasonal Allergies Seasonal Allergies: No Past Medical History Surgeries: Section, Coronary Stent, Hysterectomy Respiratory: Pneumonia, Sleep Apnea Currently Using CPAP: No Currently Using BIPAP: No Cardiac: Coronary Artery Disease, Heart Attack, Hypertension Sexually Transmitted Disease: No HIV/AIDS: No Hysterectomy Endocrine: Diabetes, Non-Insulin dep Cancer: Melanoma Did You Recieve Any Treatments: No What Type of Treatment Did You: Surgical Intervention History of Blood Disorders: No Adverse Reaction to Blood Pearson: No Family History Alcoholism 19 MOTHER Alzheimer's disease 19 FATHER Arthritis 19 FATHER Asthma 19 FATHER Cardiovascular disease 19 FATHER Cataracts 19 FATHER Diabetes mellitus Hypertension 19 FATHER 19 MOTHER Myocardial infarction 19 FATHER Osteoporosis 19 MOTHER Parkinson's disease 19 MOTHER Respiratory disorder 19 MOTHER No Family History of: Glaucoma Review of Systems Constitutional: see HPI EENTM: no symptoms reported Respiratory: dyspnea on exertion Cardiovascular: chest pain Gastrointestinal: no symptoms reported Genitourinary: no symptoms reported Musculoskeletal: no symptoms reported Skin: no symptoms reported Psychiatric/Neurological: No Symptoms Reported All Other Systems Reviewed Negative Unless Noted: Yes Physical Exam Physical Exam Vital Signs Vital Signs - First Documented 01/22/19 09:00 Temp 99.4 Pulse 84 Resp 20 B/P (MAP) 160/77 (104) Pulse Ox 96 O2 Delivery Room Air Capillary Refill : Less Than 3 Seconds Height, Weight, BMI Height: 6'0.00" Weight: 248lbs. 0.0oz. 112.883793ni; 33.6 BMI Method:Stated General Appearance: No Apparent Distress, WD/WN, Chronically ill, Obese Eyes: Bilateral Eye Normal Inspection, Bilateral Eye PERRL, Bilateral Eye EOMI HEENT: PERRL/EOMI, Normal ENT Inspection, Pharynx Normal, Moist Mucous Membranes Neck: Full Range of Motion, Normal Inspection, Non Tender, Supple, Carotid Bruit Respiratory: Chest Non Tender, Normal Breath Sounds, No Accessory Muscle Use, N o Respiratory Distress Cardiovascular: Regular Rate, Rhythm, No Edema, No Gallop, No JVD, No Murmur, Normal Peripheral Pulses Gastrointestinal: Normal Bowel Sounds, No Organomegaly, No Pulsatile Mass, Non Tender, Soft Back: Normal Inspection, No CVA Tenderness, No Vertebral Tenderness Extremity: Normal Capillary Refill, Normal Inspection, Normal Range of Motion, Non Tender, No Calf Tenderness, No Pedal Edema Neurologic/Psychiatric: Alert, Oriented x3, No Motor/Sensory Deficits, 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 Skin: Normal Color, Warm/Dry Lymphatic: No Adenopathy Results Results/Procedures Labs Laboratory Tests 01/22/19 09:20 01/22/19 14:50 01/23/19 02:59 Patient resulted labs reviewed. Short Stay Diagnosis Discharge Diagnosis-Short Stay Admission Diagnosis Non-ST elevation PA Recent stent placement in need of bypass surgery Angina COPD Smoker JAC Critical illness myopathy just DC last Saturday Final Discharge Diagnosis Non-ST elevation PA Recent stent placement in need of bypass surgery Angina COPD Smoker JAC Critical illness myopathy just DC last Saturday Conclusion Plan DC home Imdur [facility] needs bypass Diagnosis/Problems Diagnosis/Problems (1) NSTEMI (non-ST elevated myocardial infarction) Status: Acute (2) Chest pain Status: Acute Qualifiers: (3) CAD (coronary artery disease) Status: Acute Qualifiers: Qualified Codes: I25.10 - Atherosclerotic heart disease of [place] coronary artery without angina pectoris (4) Smoker Status: Chronic (5) Diabetes mellitus Status: Chronic Qualifiers: Qualified Codes: E11.8 - Type 2 diabetes mellitus with unspecified complications (6) Obesity Status: Chronic Qualifiers: (7) Elevated brain natriuretic peptide (BNP) level Status: Acute (8) Myopathy Status: Acute (9) COPD (chronic obstructive pulmonary disease) Status: Chronic Qualifiers: Qualified Codes: J44.1 - Chronic obstructive pulmonary disease with (acute) exacerbation Clinical Quality Measures DVT/VTE Risk/Contraindication: Risk Factor Score Per Nursin RFS Level Per Nursing on Admit: 3=High Pneumonia: Pseudomonal Risk: COPD HCAP with risk for mulit-drug: Hospitalized>2d (pst 90d) GRETCHEN STALLWORTH DO January 23, 2019 10:56
--- NOTE | 2019-01-23 11:43 | NUR ---
1115 THIS RN LEFT MESSAGE WITH [facility] REGARDING FOLLOWUP APPT.
--- NOTE | 2019-01-27 12:00 | Physician Query Clarification ---
PQ-Further Specificity Admission/Discharge Admission Date: January 22, 2019 at 11:59 Discharge Date: January 23, 2019 at 11:40 The medical record reflects the following clinical scenario: History/Risk Factors: NSTEMI, HTN, CHF, CAD, COPD, resolving pneumonia Clinical Findings: Pro-B Natriuretic 3387.0, EF 50-55% 01/22/19 Treatment: Metoprolol PO Question: Can you further specify CHF per the clinical indicators above? Please document a response in the Progress Notes or Discharge Summary. 1. Chronic diastolic CHF 2. Acute on chronic diastolic CHF (if yes, what treatment was given)? 3. CHF ruled out 4. Other, with explanation of the clinical findings. 5. Clinically undetermined, no explanation for the clinical findings. PHYSICIAN RESPONSE Can you specify per above: Other, explanation/clinical finding Explanation/Clinical Findings CHF ruled out Normal echo Please remember a lack of response to the above will prompt a phone page by CDI/Coding staff. In responding to this query, please exercise your independent professional judgment. The purpose of this communication is to more accurately reflect the complexity of your patients condition. The fact that a question is asked does not imply that any particular answer is desired or expected. Thank you for your timely response to this clarification. Requestors name: Fanta THIS PHYSICIAN QUERY FORM IS A PERMANENT PART OF THE MEDICAL RECORD FANTA VALDEZ Jan 27, 2019 12:00 ERIN SANTIAGO MD Jan 27, 2019 19:21
--- NOTE | 2019-01-27 12:13 | Physician Query Clarification ---
PQ-Further Specificity Admission/Discharge Admission Date: January 22, 2019 at 11:59 Discharge Date: January 23, 2019 at 11:40 The medical record reflects the following clinical scenario: History/Risk Factors: NSTEMI, HTN, CHF, CAD, COPD, recent Pneumonia Clinical Findings: CXR - mild atelectasis and or pneumonitis, decreased breathe sounds, WBC 7.8 Treatment: 01/22 Ceftriaxone, Azithromycin Question: Can you further specify Pneumonia per the clinical indicators above? Please document a response in the Progress Notes or Discharge Summary. 1. Pneumonia still being treated on this admission 2. Pneumonia resolved. Atelectasis only 3. Other, with explanation of the clinical findings. 4. Clinically undetermined, no explanation for the clinical findings. PHYSICIAN RESPONSE Can you specify per above: 2 Please remember a lack of response to the above will prompt a phone page by CDI/Coding staff. In responding to this query, please exercise your independent professional judgment. The purpose of this communication is to more accurately reflect the complexity of your patients condition. The fact that a question is asked does not imply that any particular answer is desired or expected. Thank you for your timely response to this clarification. Requestors name: Fanat THIS PHYSICIAN QUERY FORM IS A PERMANENT PART OF THE MEDICAL RECORD FANTA VALDEZ Jan 27, 2019 12:13 YOGESH STALLWORTH DO Jan 27, 2019 14:07
== END 2019-01-23 11:40 | disposition home or self-care (01) | DRG 281 ==
LOC: EDUNIT# 08:49 → ER FS 08:50 → ICU 11:59
PROVIDERS: ADMIT Internal Medicine; ATTEND Internal Medicine
DX: I21.4 Non-ST elevation (NSTEMI) myocardial infarction (principal); I25.110 Atherosclerotic heart disease of native coronary artery with unstable angina pectoris; J98.11 Atelectasis; Z87.01 Personal history of pneumonia (recurrent); J44.9 Chronic obstructive pulmonary disease, unspecified; I10 Essential (primary) hypertension; E11.9 Type 2 diabetes mellitus without complications; Z79.84 Long term (current) use of oral hypoglycemic drugs; E87.2 Acidosis; G47.33 Obstructive sleep apnea (adult) (pediatric); E78.5 Hyperlipidemia, unspecified; E66.9 Obesity, unspecified; Z68.33 Body mass index [BMI] 33.0-33.9, adult; Z95.5 Presence of coronary angioplasty implant and graft; Z85.820 Personal history of malignant melanoma of skin; Z87.891 Personal history of nicotine dependence
CPT/HCPCS: 36415; 71045; 80053; 80061; 81000; 82962; 83605; 83690; 83735; 83874; 83880; 84100; 84484; 85025; 85027; 85610; 85730; 87040; 87081; 93005; 93041; 93306; 93970; 94640; 94664; 96365; 96375

== ENCOUNTER → 2019-02-24 | Outpatient (CLI) | payer MEDICARE, OTHER ==
[~2019-02-24] MED LIST changes: +ATOR80TA64 PO; +IPRA3AMP31 NEB; +ISOS30TA3 PO; +METO-333 PO; +NITR0.4T42 SL
[2019-02-24 10:42] LABS: BUN/CREATININE RATIO 7; CREATININE SERUM 0.92 MG/DL (0.60-1.30); GFR ESTIMATED > 60
--- NOTE | 2019-02-24 12:00 | Diagnostic Imaging Report ---
PROCEDURE: CT chest with contrast only. TECHNIQUE: Multiple contiguous axial images were obtained through the chest after administration of intravenous contrast. Auto Exposure Controls were utilized during the CT exam to meet ALARA standards for radiation dose reduction. INDICATION: Shortness of breath, COPD, pneumonia and sepsis COMPARISON: Comparison made with prior examination 01/01/2019. FINDINGS: There are no discrete pulmonary nodules, masses or infiltrates. There is minimal scarring in the right lung base. There is no pneumothorax. The thoracic aorta is normal in caliber without evidence of dissection. There is no pathologically enlarged adenopathy of the chest. There are mild degenerative changes in the spine. The visualized intra-abdominal structures are unremarkable. IMPRESSION: Minimal scarring in the right lung base otherwise unremarkable CT chest. Dictated by: Dictated on workstation # [id number]
== END ==
LOC: RAD 09:28
PROVIDERS: ATTEND Nurse Practitioner Family
DX: J44.9 Chronic obstructive pulmonary disease, unspecified (principal); J30.9 Allergic rhinitis, unspecified; J96.90 Respiratory failure, unspecified, unspecified whether with hypoxia or hypercapnia; J18.9 Pneumonia, unspecified organism
CPT/HCPCS: 36415; 71260; 82565; 84520

== ENCOUNTER 2019-03-19 07:21 | Inpatient (IN) | payer MEDICARE, OTHER ==
[~2019-03-19] VITALS: Ht 182.9 cm; Wt 110.9 kg
[2019-03-19] VITALS (17 sets, daily range): BP systolic 141–179; BP diastolic 76–117
--- NOTE | 2019-03-19 07:22 | NUR ---
Arrival via [facility] as 911 call for patient with chest pain. Pt arrival with c/o SOA. "I was panting trying to get my breathe." "I have had problems for the last 10 days with increasing problems getting my breathe." "I thought the higher humidity and temperatures have affected me." Pt reports a hx of 01/01/19 have been to ER for similar problem and had pneumonia with sepsis requiring intubation and also an AR. Pt has 2 cardiac stents placed on that admission and is recooperating to get stronger for a probable double bypass to occur at [facility]. Pt follow up is April to arrange. Pt was initiated on CPAP as new for her JAC dx last night. Pt reports poor tolerance with c/o "sweating, face confinement and smoothering feeling." Pt wore CPAP 2517-2720 being awake or up most of it and then resumed [id number] and could not tolerate any more. Pt arriving trial of room air was 85-86% with good wave form and moderately anxious patient. Pt was titrated onto O2 requiring 4L/m n.c. to achieve 90% initially. The O2 flow rate discussed with Dr Hoffman to try to achieve 90-92%.
[2019-03-19] MEDS ORDERED: RT-ALBUTEROL/IPRATROPIUM 3 ML (DUONEB) VIAL INH ONE (07:30)
[2019-03-19] MEDS ORDERED: methylPREDNISolone 125 MG (Solu-MEDROL) VIAL IVP ONE (07:30)
--- NOTE | 2019-03-19 07:44 | ED Dyspnea ---
General Stated Complaint: SOB Source of Information: Patient, EMS Exam Limitations: No Limitations History of Present Illness Date Seen by Provider: Mar 19, 2019 Time Seen by Provider: 07:25 Initial Comments The patient is a very pleasant 64-year-old female who arrives via EMS for evaluation of shortness of breath and chest tightness. The patient has a history of COPD and coronary artery disease. She had 2 cardiac stents placed at [facility] on January 01. She is currently taking Brilinta. This morning she was sitting on her couch and suddenly became more short of breath than usual. She did note some wheezing. She tried to use her home DuoNeb but states it did not help significantly and EMS was called. She then developed some chest discomfort and diaphoresis. EMS gave the patient 4 baby aspirin and an additional DuoNeb treatment which seemed to help significantly. Upon arrival the patient states she is no longer having any chest discomfort but does feel somewhat short of breath. She is no longer diaphoretic but the back of her hair is noted to be damp. She says that in April of this year she is expecting to have at least a double if not triple CABG at . During her recent visit at [place] where she had the stents placed she also had a pneumonia, sepsis, and required intubation. She is not in any significant respiratory distress upon arrival today. She is a former smoker who essentially quit January 01. Additionally she was recently instructed to use home CPAP for obstructive sleep apnea and last night was the first attempt and she states that it "did not go well". Timing/Duration: 4-6 Hours Severity: Moderate Activities at Onset: None Prior Episodes/Possible Cause: Other (previous COPD exacerbations, recent pneumonia, coronary artery disease with recent stent placement) Modifying Factors: Improves With Activity (worsens), Improves With Albuterol Nebulizer (helps), Improves With Oxygen (helps), Improves With Rest (helps) Associated Symptoms: Chest Pain ("tightness"), Wheezing Allergies and Home Medications Allergies Coded Allergies: No Known Drug Allergies (Unverified , 01/01/19) Home Medications Aspirin 81 Mg Tablet.dr, 81 MG PO DAILY, (Reported) Atorvastatin Calcium 80 Mg Tablet, 80 MG PO HS, (Reported) Buspirone HCl 7.5 Mg Tablet, 7.5 MG PO BID, (Reported) Cholecalciferol (Vitamin D3) 1,000 Unit Capsule, 1,000 UNIT PO DAILY, (Reported) Citalopram Hydrobromide 40 Mg Tablet, 40 MG PO DAILY, (Reported) Glimepiride 1 Mg Tablet, 1 MG PO BID, (Reported) Ipratropium/Albuterol Sulfate 3 Ml Ampul.neb, 3 ML NEB QID, (Reported) Isosorbide Mononitrate 30 Mg Tab.er.24h, 30 MG PO DAILY Prescribed by: ERIN SANTIAGO on 01/23/19724 Krill/Om-3/Dha/Epa/Phospho/Ast 1 Each Capsule, 1,000 MG PO DAILY, (Reported) Liraglutide 0.6 Mg/0.1 Ml Pen.injctr, 1.6 MG SC HS, (Reported) Loratadine 10 Mg Tablet, 10 MG PO DAILY, (Reported) Metoprolol Tartrate 25 Mg Tablet, 25 MG PO BID, (Reported) Montelukast Sodium 10 Mg Tablet, 10 MG PO HS, (Reported) Multivitamin 1 Each Tablet, 1 TAB PO DAILY, (Reported) Nitroglycerin 0.4 Mg Tab.subl, 0.4 MG SL UD Use one tablet under tongue every 5 minutes up to 3 tablets for chest pain Prescribed by: ERIN SANTIAGO on 01/23/19724 Pantoprazole Sodium 40 Mg Tablet.dr, 40 MG PO DAILY, (Reported) Potassium Chloride 10 Meq Capsule.er, 10 MEQ PO DAILY, (Reported) Ticagrelor 90 Mg Tablet, 90 MG PO BID, (Reported) Patient Home Medication List Home Medication List Reviewed: Yes Review of Systems Review of Systems Constitutional: diaphoresis EENTM: see HPI; No blurred vision, No double vision, No throat pain Respiratory: cough, short of breath; No stridor; wheezing Cardiovascular: chest pain; No edema, No palpitations, No syncope Gastrointestinal: no symptoms reported; No diarrhea, No nausea Genitourinary: No hematuria, No pain : No Musculoskeletal: no symptoms reported Skin: no symptoms reported Psychiatric/Neurological: No Symptoms Reported; Denies Paresthesia, Denies Seizure, Denies Tingling Endocrine: Denies Excessive Sweating, Denies Flushing, Denies Increased Urine, Denies Other Hematologic/Lymphatic: Denies Other All Other Systems Reviewed Negative Unless Noted: Yes Past Qxefgww-[id number]-Fbnqpn Hx Past Med/Social Hx: Reviewed Nursing Past Med/Soc Hx Patient Social History Type Used: Cigarettes Former Smoker, Quit: January 08, 2019 2nd Hand Smoke Exposure: No Recent Hopitalizations: Yes ([facility] - [place] 01/17/19) Immunizations Up To Date PED Vaccines UTD: Yes Date of Pneumonia Vaccine: Jan 25, 2016 Seasonal Allergies Seasonal Allergies: No Past Medical History Surgeries: Yes Section, Coronary Stent, Hysterectomy Respiratory: Yes COPD Currently Using CPAP: No Currently Using BIPAP: No Cardiac: Yes Coronary Artery Disease, Heart Attack, Hypertension 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 Sexually Transmitted Disease: No HIV/AIDS: No Genitourinary: No Gastrointestinal: No Musculoskeletal: No Endocrine: No Diabetes, Non-Insulin dep HEENT: No Cancer: Yes Melanoma Did You Recieve Any Treatments: No What Type of Treatment Did You: Surgical Intervention Psychosocial: No Integumentary: Yes (Melanoma on Right arm Removed) Blood Disorders: No Adverse Reaction/Blood Tranf: No Family Medical History Alcoholism 19 MOTHER Alzheimer's disease 19 FATHER Arthritis 19 FATHER Asthma 19 FATHER Cardiovascular disease 19 FATHER Cataracts 19 FATHER Diabetes mellitus Hypertension 19 FATHER 19 MOTHER Myocardial infarction 19 FATHER Osteoporosis 19 MOTHER Parkinson's disease 19 MOTHER Respiratory disorder 19 MOTHER No Family History of: Glaucoma Physical Exam Vital Signs Vital Signs - First Documented 03/19/19 07:22 Temp 96.8 Pulse 95 Resp 22 B/P (MAP) 163/116 (132) Pulse Ox 90 O2 Delivery Nasal Cannula O2 Flow Rate 4.00 Capillary Refill : Height, Weight, BMI Height: 6'0.00" Weight: 248lbs. 0.0oz. 112.410726cd; 33.6 BMI Method:Stated General Appearance: WD/WN, Mild Distress (respiratory) HEENT: PERRL/EOMI, Normal ENT Inspection Neck: Full Range of Motion, Non Tender, Supple Respiratory: Decreased Breath Sounds (bilateral), Rales (bilateral bases), Wheezing (diffuse) Cardiovascular: No Edema, No JVD, No Murmur Gastrointestinal: Normal Bowel Sounds, No Pulsatile Mass, Non Tender, Soft Extremity: Normal Capillary Refill, Normal Inspection, Normal Range of Motion, Non Tender, No Calf Tenderness Neurologic/Psychiatric: Alert, Oriented x3, No Motor/Sensory Deficits, 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 Skin: Normal Color, Diaphoresis (back of hair damp, otherwise dry) Procedures/Interventions Date of ETT Placement: January 02, 2019 Time of ETT Placement: 1119 Progress/Results/Core Measures Results/Orders Lab Results Laboratory Tests Test 03/19/19 07:40 Range/Units White Blood Count 21.5 H 4.3-11.0 10^3/uL Red Blood Count 4.39 4.35-5.85 10^6/uL Hemoglobin 13.2 11.5-16.0 G/DL Hematocrit 41 35-52 % Mean Corpuscular Volume 95 80-99 FL Mean Corpuscular Hemoglobin 30 25-34 PG Mean Corpuscular Hemoglobin Concent 32 32-36 G/DL Red Cell Distribution Width 13.1 10.0-14.5 % Platelet Count 278 130-400 10^3/uL Mean Platelet Volume 11.1 H 7.4-10.4 FL Neutrophils (%) (Auto) 77 H 42-75 % Lymphocytes (%) (Auto) 12 12-44 % Monocytes (%) (Auto) 11 0-12 % Eosinophils (%) (Auto) 0 0-10 % Basophils (%) (Auto) 0 0-10 % Neutrophils # (Auto) 16.2 H 1.8-7.8 X 10^3 Lymphocytes # (Auto) 2.5 1.0-4.0 X 10^3 Monocytes # (Auto) 2.3 H 0.0-1.0 X 10^3 Eosinophils # (Auto) 0.1 0.0-0.3 10^3/uL Basophils # (Auto) 0.1 0.0-0.1 10^3/uL Neutrophils % (Manual) 79 % Lymphocytes % (Manual) 11 % Monocytes % (Manual) 9 % Myelocytes % 1 % Band Neutrophils 3 % Blood Morphology Comment NORMAL Sodium Level 136 135-145 MMOL/L Potassium Level 3.4 L 3.6-5.0 MMOL/L Chloride Level 98 98-107 MMOL/L Carbon Dioxide Level 22 21-32 MMOL/L Anion Gap 16 H 5-14 MMOL/L Blood Urea Nitrogen 16 7-18 MG/DL Creatinine 0.77 0.60-1.30 MG/DL Estimat Glomerular Filtration Rate > 60 BUN/Creatinine Ratio 21 Glucose Level 307 H 70-105 MG/DL Calcium Level 8.9 8.5-10.1 MG/DL Corrected Calcium 8.9 8.5-10.1 MG/DL Magnesium Level 1.7 L 1.8-2.4 MG/DL Total Bilirubin 0.6 0.1-1.0 MG/DL Aspartate Amino Transf (AST/SGOT) 35 H 5-34 U/L Alanine Aminotransferase (ALT/SGPT) 44 0-55 U/L Alkaline Phosphatase 113 40-136 U/L Troponin I < 0.30 <0.30 NG/ML Pro-B-Type Natriuretic Peptide 5843.0 H <75.0 PG/ML Total Protein 6.8 6.4-8.2 GM/DL Albumin 4.0 3.2-4.5 GM/DL My Orders Orders - CHRISTOPHER HOFFMAN DO Cbc With Automated Diff (03/19/19 07:23) Comprehensive Metabolic Panel (03/19/19 07:23) Blood Culture (03/19/19 07:23) Chest 1 View Ap/Pa Only (03/19/19 07:23) Albuterol/Ipra Inhalation Soln (Duoneb I (03/19/19 07:30) Magnesium (03/19/19 07:23) Ekg Tracing (03/19/19 07:23) O2 (03/19/19 07:23) Ed Iv/Invasive Line Start (03/19/19 07:23) Monitor-Rhythm Ecg Trace Only (03/19/19 07:23) Troponin I (03/19/19 07:23) Probnp Fs (03/19/19 07:23) Methylprednisolone Sod Succ (Solu-Medrol (03/19/19 07:30) Investigation Officer (03/19/19 08:15) Ed Iv/Invasive Line Start (03/19/19 08:15) Continuous Pulse Ox (03/19/19 08:15) Creatine Kinase Mb (03/19/19 07:40) Manual Differential (03/19/19 07:40) Furosemide Injection (Lasix Injection) (03/19/19 08:45) Medications Given in ED Current Medications Medications Dose Ordered Sig/Ciara Route Start Time Stop Time Status Last Admin Dose Admin Albuterol/ Ipratropium 3 ml ONCE ONCE INH 03/19/19 07:30 03/19/19 07:33 DC 03/19/19 07:50 3 ML Furosemide 40 mg ONCE ONCE IVP 03/19/19 08:45 03/19/19 08:46 DC 03/19/19 09:00 40 MG Methylprednisolone Sodium Succinate 125 mg ONCE ONCE IVP 03/19/19 07:30 03/19/19 07:33 DC 03/19/19 07:50 125 MG Vital Signs/I&O 03/19/19 03/19/19 03/19/19 03/19/19 07:22 07:25 07:30 07:45 Temp 96.8 96.8 Pulse 95 91 89 Resp 22 23 26 B/P (MAP) 163/116 (132) 163/116 (132) 164/100 (121) Pulse Ox 90 91 89 92 O2 Delivery Nasal Cannula Nasal Cannula Nasal Cannula Room Air O2 Flow Rate 4.00 4.00 4.00 4.00 4.00 03/19/19 08:00 Pulse 88 Resp 19 B/P (MAP) 153/106 (122) Pulse Ox 95 O2 Delivery Nasal Cannula O2 Flow Rate 4.00 Progress Progress Note : Progress Note @0935 - Patient and family updated on Levaquin and imaging results suggesting COPD exacerbation as well as CHF exacerbation the patient is agreeable to admission. Dr. Torres at [facility] accepts the admission. Comment EKG@0729 - Normal sinus rhythm, rate of 91, left axis deviation present, evidence of LVH, no acute ischemic findings noted, no STEMI, reviewed and interpreted by myself Diagnostic Imaging Comments [facility] [employer], [place] NAME: CARMEN RICHARDSON [facility] REC#: [id number] PT STATUS: REG ER : 1955 PHYSICIAN: CHRISTOPHER HOFFMAN DO ADMIT DATE: 03/19/19/ER FS Draft Date of Exam:03/19/19 CHEST 1 VIEW AP/PA ONLY Indication: Shortness of breath, cough Comparison: 01/23/2019 Technique: Single frontal radiograph of the chest dated 03/19/2019. Findings: The cardiac silhouette is borderline enlarged. Significant central pulmonary vascular congestion is present, increased from the prior examination. Diffuse interstitial opacities are now present with associated multiple Trixie B-lines. Trace right pleural effusion. No significant left pleural effusion. No pneumothorax. No acute osseous abnormality. Impression: Constellation of findings felt to relate to congestive heart failure with associated interstitial edema and tiny right basilar pleural effusion. Dictated on workstation # [id number] Dict: 03/19/19 0807 Trans: 03/19/19 0811 CVB [id number] Interpreted by: CAMERON LOZANO MD Electronically signed by: Departure Communication (Admissions) Time/Spoke to Admitting Phy: 09:30 @0930 - Dr. Torres accepts the telemetry admission at this time. Impression Primary Impression: COPD with exacerbation Additional Impression: Congestive heart failure Disposition: ADMITTED INPATIENT Condition: Stable Admissions Decision to Admit Reason: Admit from ER (General) Decision to Admit/Date: Mar 19, 2019 Time/Decision to Admit Time: 09:30 Transfer Method of Transfer: EMS Departure-Patient Inst. Referrals: MARYSOL RWOE MD (PCP/Family) Primary Care Physician CHRISTOPHER HOFFMAN DO Mar 19, 2019 07:44
--- NOTE | 2019-03-19 07:55 | NUR ---
Completion of 5 min Duoneb tx with aersol via O2 at 7L. SaO2 noted up to 97% while nebulizing. Pt was replaced on n.c. at 4L/m per n.c. Pt reports feeling it is starting to loosen up chest tightness. No expectoration with tx.
--- NOTE | 2019-03-19 08:12 | Diagnostic Imaging Report ---
Indication: Shortness of breath, cough Comparison: 01/23/2019 Technique: Single frontal radiograph of the chest dated 03/19/2019. Findings: The cardiac silhouette is borderline enlarged. Significant central pulmonary vascular congestion is present, increased from the prior examination. Diffuse interstitial opacities are now present with associated multiple Trixie B-lines. Trace right pleural effusion. No significant left pleural effusion. No pneumothorax. No acute osseous abnormality. Impression: Constellation of findings felt to relate to congestive heart failure with associated interstitial edema and tiny right basilar pleural effusion. Dictated by: Dictated on workstation # [id number]
[2019-03-19 08:25] LABS: ALANINE AMINOTRANSFERASE 44 U/L (0-55); ALKALINE PHOSPHATASE 113 U/L (40-136); BILIRUBIN,TOTAL 0.6 MG/DL (0.1-1.0); BUN/CREATININE RATIO 21; CALCIUM 8.9 MG/DL (8.5-10.1); CARBON DIOXIDE 22 MMOL/L (21-32); CHLORIDE 98 MMOL/L (98-107); CREATININE SERUM 0.77 MG/DL (0.60-1.30); GFR ESTIMATED > 60; GLUCOSE 307 MG/DL (70-105); MAGNESIUM 1.7 MG/DL (1.8-2.4); POTASSIUM 3.4 MMOL/L (3.6-5.0); SODIUM 136 MMOL/L (135-145)
[2019-03-19 08:26] LABS: TOTAL PROTEIN 6.8 GM/DL (6.4-8.2)
[2019-03-19 08:27] LABS: WHITE BLOOD COUNT 21.5 10^3/uL (4.3-11.0)
[2019-03-19 08:28] LABS: BASOPHILS # (AUTO) 0.1 10^3/uL (0.0-0.1); BASOPHILS % (AUTO) 0 % (0-10); EOSINOPHILS # (AUTO) 0.1 10^3/uL (0.0-0.3); EOSINOPHILS % (AUTO) 0 % (0-10); HEMOGLOBIN 13.2 G/DL (11.5-16.0); LYMPHOCYTES # (AUTO) 2.5 X 10^3 (1.0-4.0); LYMPHOCYTES % (AUTO) 12 % (12-44); MEAN CORPUSCULAR HEMOGLOBIN 30 PG (25-34); MEAN CORPUSCULAR HGB CONC 32 G/DL (32-36); MEAN CORPUSCULAR VOLUME 95 FL (80-99); MEAN PLATELET VOLUME 11.1 FL (7.4-10.4); MONOCYTES # (AUTO) 2.3 X 10^3 (0.0-1.0); MONOCYTES % (AUTO) 11 % (0-12); NEUTROPHILS # (AUTO) 16.2 X 10^3 (1.8-7.8); NEUTROPHILS % (AUTO) 77 % (42-75); PLATELET COUNT 278 10^3/uL (130-400); RED CELL DISTRIBUTION WIDTH 13.1 % (10.0-14.5)
[2019-03-19 08:29] LABS: HEMATOCRIT 41 % (35-52)
[2019-03-19 08:33] LABS: BAND NEUTROPHILS 3 %; LYMPHOCYTES % (MANUAL) 11 %; MONOCYTES % (MANUAL) 9 %; MYELOCYTES % 1 %; NEUTROPHILS % (MANUAL) 79 %; RBC MORPH NORMAL
[2019-03-19] MEDS ORDERED: FUROSEMIDE 40 MG/4 ML INJ (LASIX) IVP ONE (08:45)
--- NOTE | 2019-03-19 09:00 | NUR ---
Pt resting with H.O.B. elevated and continuing to converse with family present in room. SaO2-94% on 4L/n.c.
--- NOTE | 2019-03-19 09:10 | NUR ---
Maura has infused SIVP.
--- NOTE | 2019-03-19 09:35 | NUR ---
Patient has voided 500 ml clear lt fanta urine on BSC
[2019-03-19] MEDS ORDERED: PRD10T PO (09:39)
[2019-03-19] MEDS ORDERED: ALBU18HF2 INH (09:41)
[2019-03-19] MEDS ORDERED: FLUT1BLS3 INH (09:41)
--- NOTE | 2019-03-19 10:05 | NUR ---
Pt up to BSC to void 700 ml clear urine. Pt reports not feeling like panting with exertional activity.
--- NOTE | 2019-03-19 10:57 | NUR ---
Patient voided 600 ml clear urine. Pt reports breathing is much improved and no chest pain/tightness.
[2019-03-19] MEDS ORDERED: CATHETER FLUSH 10 ML SYR IV PRN (12:00)
[2019-03-19] MEDS ORDERED: ISOS30TA3 PO (13:19)
[2019-03-19] MEDS ORDERED: BETA1TAB15 PO (13:19)
[2019-03-19] MEDS ORDERED: ATOR80TA76 PO (13:19)
[2019-03-19] MEDS ORDERED: VITA-252 PO (13:19)
[2019-03-19] MEDS ORDERED: NITR0.4T39 SL (13:19)
[2019-03-19] MEDS ORDERED: POTA10TA10 PO (13:19)
--- NOTE | 2019-03-19 13:29 | NUR ---
SPOKE WITH THE PATIENT ABOUT HER MEDICATIONS. WE WENT OVER THE EXT MED HX AND SHE VERIFIED HOW SHE TAKES THEM. SHE STATES SHE HAS NOT HAD ANY OF HER MEDICATIONS YET TODAY. SHE NO LONGER TAKING THE LISINOPRIL OR AMLODIPINE. OTC MEDS: MTV DAILY HAIR SKIN AND NAILS DAILY PRESERVISION DAILY KRILL OIL DAILY VITAMIN D DAILY
[2019-03-19] MEDS: CATHETER FLUSH 10 ML SYR IV SCH ×2 (14:08→21:39)
--- NOTE | 2019-03-19 14:54 | History & Physical-Hospitalist ---
History of Present Illness HPI/Chief Complaint Chief complain: SOB HPI: This is a 63yoWF known to me from prior admission then subsequent inpatient rehab hospital course after a critical illness and intubation with coronary stents placed and intubation who ultimately returned home, was connected with [facility] and will likely undergo coronary artery bypass graft in April who presented to the [facility] with SOB, her BNP was 5,00 chest X-ray was consistent with pulmonary edema, white count was 21,000 but she is on steroids currently. EMS brought her into the ER and Pt is less hypoxic and will be consulting Dr. Riggs and Dr. Mercado once she arrives in cardiac step-down at [facility] in [place]. Dr. Hagen is her PCP. Source: patient, family Exam Limitations: no limitations Date Seen 03/19/19 Time Seen by a Provider: 13:05 Attending Physician Gretchen Stallworth DO PCP Kade Hagen MD Referring Physician Date of Admission Mar 19, 2019 at 10:53 Home Medications & Allergies Home Medications Reviewed patient Home Medication Reconciliation performed by pharmacy medication reconciliations line technician and/or nursing. Patients Allergies have been reviewed. Allergies Allergies Coded Allergies No Known Drug Allergies (Unverified01/01/19) Past Ufodeyy-Vdtycb-Ytgsyv Hx Past Med/Social Hx: Reviewed Nursing Past Med/Soc Hx, Reviewed and Corrections made Patient Social History Marrital Status: Employed/Student: retired Alcohol Use: Denies Use Recreational Drug Use: No Smoking Status: Former Smoker Former Smoker, Quit: January 01, 2019 Type Used: Cigarettes 2nd Hand Smoke Exposure: No Recent Foreign Travel: No Contact w/other who traveled: No Recent Hopitalizations: Yes (VIA [employer] 01/17/19) Recent Infectious Disease Expo: No Immunizations Up To Date Pediatric: Yes Date of Pneumonia Vaccine: Jan 25, 2016 Seasonal Allergies Seasonal Allergies: No Past Medical History Surgeries: Section, Coronary Stent, Hysterectomy Respiratory: Asthma, COPD, Pneumonia, Sleep Apnea Currently Using CPAP: No Currently Using BIPAP: No Cardiac: Coronary Artery Disease, Heart Attack, Hypertension : No Sexually Transmitted Disease: No HIV/AIDS: No Hysterectomy Endocrine: Diabetes, Non-Insulin dep Cancer: Melanoma Did You Recieve Any Treatments: No What Type of Treatment Did You: Surgical Intervention History of Blood Disorders: No Adverse Reaction to Blood Pearson: No Family History Alcoholism 19 MOTHER Alzheimer's disease 19 FATHER Arthritis 19 FATHER Asthma 19 FATHER Cardiovascular disease 19 FATHER Cataracts 19 FATHER Diabetes mellitus Hypertension 19 FATHER 19 MOTHER Myocardial infarction 19 FATHER Osteoporosis 19 MOTHER Parkinson's disease 19 MOTHER Respiratory disorder 19 MOTHER No Family History of: Glaucoma Review of Systems Constitutional: see HPI EENTM: no symptoms reported Respiratory: dyspnea on exertion, wheezing Physical Exam Physical Exam Vital Signs Vital Signs - First Documented 03/19/19 07:22 Temp 96.8 Pulse 95 Resp 22 B/P (MAP) 163/116 (132) Pulse Ox 90 O2 Delivery Nasal Cannula O2 Flow Rate 4.00 Capillary Refill : Less Than 3 SecondsLess Than 3 Seconds Height, Weight, BMI Height: 6'0.00" Weight: 244lbs. 9.0oz. 110.426796pc; 33.2 BMI Method:Stated General Appearance: No Apparent Distress, WD/WN, Chronically ill, Obese Eyes: Right Eye Normal Inspection, Right Eye PERRL HEENT: PERRL/EOMI, Normal ENT Inspection, Pharynx Normal, Moist Mucous Membranes Neck: Full Range of Motion, Normal Inspection, Non Tender Respiratory: Chest Non Tender, No Accessory Muscle Use, No Respiratory Distress, Crackles, Decreased Breath Sounds, Wheezing Cardiovascular: Regular Rate, Rhythm, No Edema, No Gallop, No JVD, No Murmur, Normal Peripheral Pulses Gastrointestinal: Normal Bowel Sounds, No Organomegaly, No Pulsatile Mass, Non Tender, Soft Back: Normal Inspection, No CVA Tenderness, No Vertebral Tenderness Extremity: Normal Capillary Refill, Normal Inspection, Normal Range of Motion, Non Tender, No Calf Tenderness, No Pedal Edema Neurologic/Psychiatric: Alert, Oriented x3, No Motor/Sensory Deficits, 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 Skin: Normal Color, Warm/Dry Lymphatic: No Adenopathy Results Results/Procedures Labs Laboratory Tests 03/19/19 07:40 Patient resulted labs reviewed. Assessment/Plan Admission Diagnosis Assessment: Acute respiratory failure Pulmonary edema CP with elevated troponin Leukocytosis AECOPD Former smoker Probable JAC Debility DM Plan: Cardiology and Pulmonology consultations IV steroids Nebs O2 Admission Status: Inpatient Order (span 2 midnights) Reason for Inpatient Admission: Hypoxia and elevated troponin will require ICU monitoring and 3 days hospital Diagnosis/Problems Diagnosis/Problems (1) Respiratory failure Status: Acute (2) COPD with exacerbation Status: Acute (3) Elevated brain natriuretic peptide (BNP) level Status: Acute (4) Diabetes mellitus Status: Chronic Qualifiers: Diabetes mellitus type: type 2 Diabetes mellitus intermission coordinator insulin use: unspecified group home insulin use status (5) COPD (chronic obstructive pulmonary disease) Status: Chronic (6) Leukocytosis Status: Acute Qualifiers: Leukocytosis type: leukemoid reaction Qualified Codes: D72.823 - Leukemoid reaction Clinical Quality Measures DVT/VTE Risk/Contraindication: Risk Factor Score Per Nursin RFS Level Per Nursing on Admit: 4+=Very High GRETCHEN STALLWORTH DO Mar 19, 2019 14:54
[2019-03-19] MEDS ORDERED: guaiFENesin/CODEINE (ROBITUSSIN AC) 10ML UDC PO PRN (16:00)
[2019-03-19] MEDS ORDERED: LOPERAMIDE 2 MG (IMODIUM) TABLET PO PRN (16:00)
[2019-03-19] MEDS ORDERED: inSUlin ASPART (NovoLOG) 1 UNIT/0.01 ML (CHARGE PER UNIT) SC SCH ×2 (16:00→21:15)
[2019-03-19] MEDS ORDERED: MELATONIN 3 MG TABLET PO PRN (16:00)
[2019-03-19] MEDS ORDERED: HYDROcodone/APAP 5 MG/325 MG (LORTAB) TAB PO PRN (16:00)
[2019-03-19] MEDS ORDERED: ONDANSETRON 4 MG/2 ML (SDV) Z0FRAN IVP PRN (16:00)
[2019-03-19] MEDS ORDERED: NITROGLYCERIN 0.4 MG SL TABS BTL 25'S SL PRN (16:00)
[2019-03-19] MEDS ORDERED: ACETAMINOPHEN 500 MG TAB (TYLENOL) PO PRN (16:00)
[2019-03-19] MEDS ORDERED: methylPREDNISolone 40 MG/ML (Solu-MEDROL) VIAL IV SCH (16:00)
[2019-03-19] MEDS: GLIMEPIRIDE 1 MG (AMARYL) TAB PO SCH (16:11)
[2019-03-19] MEDS: inSUlin ASPART (NovoLOG) 1 UNIT/0.01 ML (CHARGE PER UNIT) SC SCH (21:34)
[2019-03-19] MEDS: busPIRone 15 MG (BUSPAR) TABLET PO SCH (21:36)
[2019-03-19] MEDS: methylPREDNISolone 40 MG/ML (Solu-MEDROL) VIAL IV SCH (21:36)
[2019-03-19] MEDS: MONTELUKAST 10 MG (SINGULAIR) TAB PO SCH (21:37)
[2019-03-19] MEDS: SENNA W/DOCUSATE (SENOKOT S) TABLET PO SCH (21:37)
[2019-03-19] MEDS: meTOprolol TARTRATE 25 MG (LOPRESSOR) TABLET PO SCH (21:38)
[2019-03-19] MEDS: TICAGRELOR 90 MG TABLET (BRILINTA) PO SCH (21:38)
[2019-03-19] MEDS: ATORVASTATIN 80 MG (LIPITOR) TABLET PO SCH (21:38)
[2019-03-20] VITALS (11 sets, daily range): BP systolic 125–156; BP diastolic 68–91
[2019-03-20 03:49] LABS: BASOPHILS % (AUTO) 0 % (0-10); EOSINOPHILS % (AUTO) 0 % (0-10); HEMATOCRIT 41 % (35-52); LYMPHOCYTES # (AUTO) 0.9 X 10^3 (1.0-4.0); LYMPHOCYTES % (AUTO) 6 % (12-44); MEAN CORPUSCULAR HEMOGLOBIN 29 PG (25-34); MEAN CORPUSCULAR HGB CONC 32 G/DL (32-36); MEAN CORPUSCULAR VOLUME 92 FL (80-99); MEAN PLATELET VOLUME 11.1 FL (7.4-10.4); MONOCYTES # (AUTO) 1.1 X 10^3 (0.0-1.0); MONOCYTES % (AUTO) 7 % (0-12); NEUTROPHILS # (AUTO) 13.5 X 10^3 (1.8-7.8); NEUTROPHILS % (AUTO) 87 % (42-75); PLATELET COUNT 246 10^3/uL (130-400); RED CELL DISTRIBUTION WIDTH 13.4 % (10.0-14.5); WHITE BLOOD COUNT 15.5 10^3/uL (4.3-11.0)
[2019-03-20 04:08] LABS: ALANINE AMINOTRANSFERASE 36 U/L (0-55); ALBUMIN 3.9 GM/DL (3.2-4.5); ALKALINE PHOSPHATASE 111 U/L (40-136); BILIRUBIN,TOTAL 0.7 MG/DL (0.1-1.0); BUN/CREATININE RATIO 22; CALCIUM 9.8 MG/DL (8.5-10.1); CARBON DIOXIDE 23 MMOL/L (21-32); CHLORIDE 99 MMOL/L (98-107); CREATININE SERUM 0.79 MG/DL (0.60-1.30); GFR ESTIMATED > 60; GLUCOSE 188 MG/DL (70-105); MAGNESIUM 2.1 MG/DL (1.8-2.4); PHOSPHORUS 3.4 MG/DL (2.3-4.7); POTASSIUM 3.6 MMOL/L (3.6-5.0); SODIUM 136 MMOL/L (135-145); TOTAL PROTEIN 6.7 GM/DL (6.4-8.2)
[2019-03-20] MEDS: CATHETER FLUSH 10 ML SYR IV SCH ×3 (05:10→20:27)
[2019-03-20] MEDS: methylPREDNISolone 40 MG/ML (Solu-MEDROL) VIAL IV SCH ×4 (05:10→20:26)
--- NOTE | 2019-03-20 05:40 | Pulmonary Consultation ---
History of Present Illness History of Present Illness Date of Consultation 03/20/19 05:37 Time Seen by Provider: 05:37 Date of Admission History of Present Illness 63yo with recent hospitalization and required mechanical ventilation, cardiac cath with stent placement, and in patient rehab presented to ED secondary to worsening SOB. She was given lasix after BNP was found to be elevated. Pt is also known to maureen and is planning on undergoing CABG this Apr. Pt was seen in my office on Saturday and I rx her a steroid taper. She was taking prednisone taper however SOB continued to worsen. Allergies and Home Medications Allergies Coded Allergies: No Known Drug Allergies (Unverified , 01/01/19) Home Medications Albuterol Sulfate 18 Gm Hfa.aer.ad, 2 PUFF INH Q4H, (Reported) Aspirin 81 Mg Tablet.dr, 81 MG PO DAILY, (Reported) Atorvastatin Calcium 80 Mg Tablet, 80 MG PO HS, (Reported) Buspirone HCl 7.5 Mg Tablet, 7.5 MG PO BID, (Reported) Cholecalciferol (Vitamin D3) 1,000 Unit Capsule, 1,000 UNIT PO DAILY, (Reported) Citalopram Hydrobromide 40 Mg Tablet, 40 MG PO DAILY, (Reported) Fluticasone/Umeclidin/Vilanter 1 Each Blst.w.dev, 1 PUFF INH DAILY, (Reported) Glimepiride 1 Mg Tablet, 1 MG PO BID, (Reported) Ipratropium/Albuterol Sulfate 3 Ml Ampul.neb, 3 ML NEB QID PRN for SHORTNESS OF BREATH, (Reported) Isosorbide Mononitrate 30 Mg Tab.er.24h, 30 MG PO DAILY, (Reported) Krill/Om-3/Dha/Epa/Phospho/Ast 1 Each Capsule, 1,000 MG PO DAILY, (Reported) Liraglutide 0.6 Mg/0.1 Ml Pen.injctr, 1.6 MG SC HS, (Reported) Loratadine 10 Mg Tablet, 10 MG PO DAILY, (Reported) Metoprolol Tartrate 25 Mg Tablet, 25 MG PO BID, (Reported) Montelukast Sodium 10 Mg Tablet, 10 MG PO HS, (Reported) Multivitamin 1 Each Tablet, 1 TAB PO DAILY, (Reported) Nitroglycerin 0.4 Mg Tab.subl, 0.4 MG SL UD PRN for CHEST PAIN, (Reported) Pantoprazole Sodium 40 Mg Tablet.dr, 40 MG PO DAILY, (Reported) Potassium Chloride 10 Meq Tablet.er, 10 MEQ PO DAILY, (Reported) Prednisone 10 Mg Tab, PO UD, (Reported) TAKE 6 TABS DAYS 1 & 2 TAKE 5 TABS DAYS 3 & 4 TAKE 4 TABS DAYS 5 & 6 TAKE 3 TABS DAYS 7 & 8 TAKE 2 TABS DAYS 9 & 10 TAKE 1 TAB DAYS 10 & 11 FILLED # 42 03-16-19 Ticagrelor 90 Mg Tablet, 90 MG PO BID, (Reported) Vit A/Vit C/Vit E/Zinc/Copper 1 Each Tablet, 1 TAB PO DAILY, (Reported) Vitamin C/Biotin 1 Each Tab.chew, 1 TAB.CHEW PO DAILY, (Reported) Past Jbfeeag-Vzvgga-Zralcf Hx Past Med/Social Hx: Reviewed Nursing Past Med/Soc Hx, Reviewed and Corrections made Patient Social History Alcohol Use: Denies Use Recreational Drug Use: No Smoking Status: Former Smoker Type Used: Cigarettes Former Smoker, Quit: January 01, 2019 2nd Hand Smoke Exposure: No Recent Foreign Travel: No Contact w/Someone Who Travel: No Recent Infectious Disease Expo: No Recent Hopitalizations: Yes (VIA [employer] 01/17/19) Physical Abuse: No Sexual Abuse: No Mistreated: No Fear: No Immunizations Up To Date PED Vaccines UTD: Yes Date of Pneumonia Vaccine: Jan 25, 2016 Seasonal Allergies Seasonal Allergies: No Past Medical History Surgeries: Yes (Coronary stenting x 2 12/2018) Section, Coronary Stent, Hysterectomy Respiratory: Yes (Initiation home CPAP 03/18/19, Tobaccoism Hx) Sleep Apnea, COPD Currently Using CPAP: No Currently Using BIPAP: No Cardiac: Yes Coronary Artery Disease, Heart Attack, Hypertension Neurological: Yes : No [employer] History: Hysterectomy Sexually Transmitted Disease: No HIV/AIDS: No Genitourinary: No Gastrointestinal: No Musculoskeletal: No Endocrine: Yes Diabetes, Non-Insulin dep HEENT: No Cancer: Yes Melanoma Did You Recieve Any Treatments: No What Type of Treatment Did You: Surgical Intervention Psychosocial: No Integumentary: Yes (Melanoma on Right arm Removed) Blood Disorders: No Adverse Reaction/Blood Tranf: No Family Medical History Alcoholism 19 MOTHER Alzheimer's disease 19 FATHER Arthritis 19 FATHER Asthma 19 FATHER Cardiovascular disease 19 FATHER Cataracts 19 FATHER Diabetes mellitus Hypertension 19 FATHER 19 MOTHER Myocardial infarction 19 FATHER Osteoporosis 19 MOTHER Parkinson's disease 19 MOTHER Respiratory disorder 19 MOTHER No Family History of: Glaucoma Review of Systems Time Seen by Provider: 07:42 Constitutional: Sweats, Weakness, Malaise Eyes: No: Pain, Vision change, Conjunctivae inflammation, Eyelid inflammation, Other, Redness ENT: Nose congestion; No: Ear pain, Ear discharge, Nose pain, Nose discharge, Mouth pain, Mouth swelling, Throat pain, Throat swelling, Other Respiratory: Cough, Shortness of breath, SOB with excertion, Wheezing, Pleuritic Pain, Sputum; No: Hemoptysis Cardiovascular: Chest Pain, Palpitations, Paroxysmal Noc. Dyspnea, Lt Headedness Gastrointestinal: No: Nausea, Vomiting, Diarrhea, Constipation Neurological: Weakness Sepsis Event Evaluation Height, Weight, BMI Height: 6'0.00" Weight: 244lbs. 9.0oz. 110.700397ae; 33.2 BMI Method:Stated Exam Exam Vital Signs Date Time Temp Pulse Resp B/P (MAP) Pulse Ox O2 Delivery O2 Flow Rate FiO2 03/20/19 04:12 74 25 148/82 (104) 96 Nasal Cannula 3.00 03/20/19 03:00 73 26 156/82 (106) 96 Nasal Cannula 3.00 03/20/19 02:00 67 20 141/82 (101) 97 Nasal Cannula 3.00 03/20/19 01:00 75 20 150/87 (108) 97 Nasal Cannula 3.00 03/20/19 01:00 75 03/20/19 00:00 80 26 154/91 (112) 96 Nasal Cannula 3.00 03/19/19 21:00 96 Nasal Cannula 3.00 03/19/19 19:57 97.5 84 20 179/100 (126) 96 Nasal Cannula 3.00 03/19/19 19:00 87 03/19/19 16:00 80 19 141/86 (104) 97 Nasal Cannula 3.00 03/19/19 16:00 97.7 03/19/19 13:45 84 31 141/76 (97) 96 Nasal Cannula 3.00 03/19/19 13:15 84 26 149/117 (128) 96 Nasal Cannula 3.00 03/19/19 13:00 85 03/19/19 12:45 85 22 151/76 (101) 96 Nasal Cannula 3.00 03/19/19 12:30 91 19 153/84 (107) 97 Nasal Cannula 3.00 03/19/19 12:15 81 25 143/94 (110) 96 Nasal Cannula 3.00 03/19/19 12:00 98 Nasal Cannula 3.00 03/19/19 12:00 97.7 03/19/19 12:00 84 19 166/87 (113) 96 Nasal Cannula 3.00 03/19/19 11:53 87 03/19/19 11:00 99.8 88 23 156/82 (106) 96 Nasal Cannula 4.00 03/19/19 11:00 99.8 88 23 156/82 (106) 96 Nasal Cannula 4.00 03/19/19 10:45 99.8 90 20 161/81 (107) 95 Nasal Cannula 4.00 03/19/19 10:30 87 19 168/76 (106) 95 Nasal Cannula 4.00 03/19/19 10:15 99.7 88 21 175/98 (123) 95 Nasal Cannula 4.00 03/19/19 10:00 99.7 90 23 175/98 (123) 95 Nasal Cannula 4.00 03/19/19 09:30 89 20 94 Nasal Cannula 4.00 03/19/19 09:00 94 23 170/101 (124) 94 Nasal Cannula 4.00 03/19/19 08:30 25 94 Nasal Cannula 4.00 03/19/19 08:15 94 Nasal Cannula 4.00 03/19/19 08:00 88 19 153/106 (122) 95 Nasal Cannula 4.00 03/19/19 07:45 89 26 164/100 (121) 92 Room Air 4.00 03/19/19 07:30 96.8 91 23 163/116 (132) 89 Nasal Cannula 4.00 4.00 03/19/19 07:25 91 Nasal Cannula 4.00 03/19/19 07:22 96.8 95 22 163/116 (132) 90 Nasal Cannula 4.00 I & O 03/20/19 07:00 Intake Total 2258 ml Output Total 3600 ml Balance -1342 ml Height & Weight Height: 6'0.00" Weight: 244lbs. 9.0oz. 110.924325qm; 33.2 BMI Method:Stated General Appearance: Anxious, Mild Distress HEENT: PERRL/EOMI, Pharynx Normal Neck: Full Range of Motion, Non Tender, Supple Respiratory: Chest Non Tender, No Accessory Muscle Use, No Respiratory Distress, Crackles, Decreased Breath Sounds, Wheezing Cardiovascular: Regular Rate, Rhythm Capillary Refill: Less Than 3 Seconds Gastrointestinal: normal bowel sounds, non tender, soft Extremity: Normal Capillary Refill, No Pedal Edema Neurologic/Psychiatric: Alert, Oriented x3 Skin: Normal Color, Warm/Dry Lymphatic: No Adenopathy Results Lab Laboratory Tests 03/19/19 07:40 03/20/19 03:35 Assessment/Plan Assessment/Plan Acute respiratory failure -Repeat Troponin --Check Echocardiogram -Consult cardiology -CXR reviewed -Continue lasix for now COPDAE -failed out pt treatment. -Duonebs -Solumedrol -S/p Lasix 40mg -Oxygen Leukocytosis -Probably secondary to steroids before and during hospitalization JAC -Pt has a home CPAP DM CAD hx HTN JOSE LUIS MONTOYA DO Mar 20, 2019 05:40
[2019-03-20] MEDS ORDERED: KCL 20 MEQ TAB (K-DUR) PO ONE ×4 (05:45→09:00)
[2019-03-20] MEDS ORDERED: FUROSEMIDE 40 MG/4 ML INJ (LASIX) IVP ONE (06:00)
[2019-03-20] MEDS ORDERED: FUROSEMIDE 40 MG/4 ML INJ (LASIX) ONE (06:35)
[2019-03-20] MEDS: VITAMIN D3 1,000 UNITS (CHOLECALCIFEROL) TABLET PO SCH (06:46)
[2019-03-20] MEDS: GLIMEPIRIDE 1 MG (AMARYL) TAB PO SCH ×2 (06:46→16:43)
[2019-03-20] MEDS: MULTIVIT W/MINERALS TAB (THERAGRAN M) PO SCH (06:47)
[2019-03-20] MEDS: KCL 10 MEQ TAB (MICRO K) PO SCH (06:47)
[2019-03-20] MEDS: inSUlin ASPART (NovoLOG) 1 UNIT/0.01 ML (CHARGE PER UNIT) SC SCH ×4 (06:48→20:26)
--- NOTE | 2019-03-20 08:58 | Diagnostic Imaging Report ---
EXAMINATION: Chest one view. INDICATION: Shortness of breath. COMPARISON: 03/19/2019. FINDINGS: Heart size is normal. Previously seen pulmonary edema has resolved. No pleural effusion. No pneumothorax. No pneumonia. IMPRESSION: 1. Clear lungs. Dictated by: Dictated on workstation # [id number]
[2019-03-20] MEDS ORDERED: NON-FORMULARY MEDICATION 1 EA EA (Fluticasone/Umeclidin/Vilanter (Trelegy Ellipta 100-62.5 INH SCH (09:00)
[2019-03-20] MEDS: busPIRone 15 MG (BUSPAR) TABLET PO SCH ×2 (09:02→20:26)
[2019-03-20] MEDS: LORATADINE (CLARITIN) 10 MG TAB PO SCH (09:02)
[2019-03-20] MEDS: TICAGRELOR 90 MG TABLET (BRILINTA) PO SCH ×2 (09:03→20:26)
[2019-03-20] MEDS: SENNA W/DOCUSATE (SENOKOT S) TABLET PO SCH ×2 (09:03→20:25)
[2019-03-20] MEDS: ASPIRIN E.C. 81 MG (ECOTRIN) TAB PO SCH (09:03)
[2019-03-20] MEDS: PANTOPRAZOLE 40 MG (PROTONIX) TAB PO SCH (09:04)
[2019-03-20] MEDS: meTOprolol TARTRATE 25 MG (LOPRESSOR) TABLET PO SCH ×2 (09:04→20:26)
[2019-03-20] MEDS: ISOSORBIDE MONONITRATE 30 MG (IMDUR) TAB PO SCH (09:04)
--- NOTE | 2019-03-20 10:32 | Progress Note - Hospitalist ---
Subjective HPI/CC On Admission Date Seen by Provider: Mar 20, 2019 Time Seen by Provider: 09:45 Chief complain: SOB HPI: This is a 63yoWF known to me from prior admission then subsequent inpatient rehab hospital course after a critical illness and intubation with coronary stents placed and intubation who ultimately returned home, was connected with Med and will likely undergo coronary artery bypass graft in April who presented to the [facility] ER with SOB, her BNP was 5,00 chest X-ray was consistent with pulmonary edema, white count was 21,000 but she is on steroids currently. EMS brought her into the ER and Pt is less hypoxic and will be consulting Dr. Riggs and Dr. Mercado once she arrives in cardiac step-down at [facility] in [place]. Dr. Hagen is her PCP. Subjective/Events-last exam Patient feeling much better Appreciate Dr. Riggs consultation Elevated troponin is concerning Cardiology evaluated the need for intervention or transfer up to for bypass surgery Denies any other significant pain Feels like she is much better Review of Systems General: Fatigue Objective Exam Vital Signs Vital Signs Date Time Temp Pulse Resp B/P (MAP) Pulse Ox O2 Delivery O2 Flow Rate FiO2 03/20/19 09:00 96 Nasal Cannula 3.00 03/20/19 08:00 73 33 144/85 (104) 03/19/19 19:57 97.5 Capillary Refill : Less Than 3 SecondsLess Than 3 Seconds General Appearance: Anxious, Mild Distress HEENT: PERRL/EOMI, Pharynx Normal Neck: Full Range of Motion, Non Tender, Supple Respiratory: Chest Non Tender, No Accessory Muscle Use, No Respiratory Distress, Crackles, Decreased Breath Sounds, Wheezing Cardiovascular: Regular Rate, Rhythm Gastrointestinal: Normal Bowel Sounds, No Organomegaly, No Pulsatile Mass, Non Tender, Soft Back: Normal Inspection, No CVA Tenderness, No Vertebral Tenderness Extremity: Normal Capillary Refill, No Pedal Edema Neurologic/Psychiatric: Alert, Oriented x3 Skin: Normal Color, Warm/Dry Lymphatic: No Adenopathy Results/Procedures Lab Laboratory Tests 03/20/19 03:35 Patient resulted labs reviewed. Assessment/Plan Assessment and Plan Assess & Plan/Chief Complaint Assessment: Acute respiratory failure resolved Pulmonary edema CP with elevated troponin Leukocytosis AECOPD Former smoker Probable JAC Debility DM Plan: Cardiology and Pulmonology consultations IV steroids Nebs O2 Diagnosis/Problems Diagnosis/Problems (1) Respiratory failure Status: Acute (2) COPD with exacerbation Status: Acute (3) Elevated brain natriuretic peptide (BNP) level Status: Acute (4) Diabetes mellitus Status: Chronic Qualifiers: Diabetes mellitus type: type 2 Diabetes mellitus chcf insulin use: unspecified chcf insulin use status (5) COPD (chronic obstructive pulmonary disease) Status: Chronic (6) Leukocytosis Status: Acute Qualifiers: Leukocytosis type: leukemoid reaction Qualified Codes: D72.823 - Leukemoid reaction Clinical Quality Measures DVT/VTE Risk/Contraindication: Risk Factor Score Per Nursin RFS Level Per Nursing on Admit: 4+=Very High YOGESH STALLWORTH DO Mar 20, 2019 10:32
--- NOTE | 2019-03-20 10:48 | Consultation-Cardiology ---
HPI-Cardiology Cardiology Consultation: Date of Consultation 03/20/19 Date of Admission Attending Physician Gretchen Torres DO Admitting Physician Kade Hagen MD Consulting Physician Jc MERCADO MD HPI: Time Seen by a Provider: 08:45 Chief Complaint: Shortness of breath, chest tightness This is a 64-year-old lady who I previously saw in December 2018 when she presented with severe chest pain and non-STEMI. However she developed acute respiratory failure and sepsis and needed to be intubated. I did coronary angiography in December 2018 and which demonstrated severe triple vessel disease. However the culprit vessel with CHRIS 2 flow and haziness was left circumflex artery which was treated with 2 drug-eluting stents. LAD and RCA; CABG versus staged PCI. Patient does have history of diabetes. Patient presented with shortness of breath and wheezing. She is a previous smoker. She does have history of obstructive sleep apnea on CPAP. Review of Systems-Cardiology Review of Systems Constitutional: As described under HPI; No As described under HPI, No no symptoms reported, No chills, No fever, No lightheadedness Eyes: No As described under HPI, No no symptoms reported, No blindness, No blurred vision, No contact lenses, No drainage, No decreased acuity, No foreign body sensation, No pain, No vision change Ears/Nose/Throat: No As described under HPI, No no symptoms reported, No chronic hearing loss, No ear discharge, No ear pain, No nasal drainage, No ulcerations Respiratory: No no symptoms reported; As described under HPI; No As described under HPI, No cough, No orthopnea; shortness of breath; No SOB with excertion Cardiovascular: No no symptoms reported; As described under HPI; No As described under HPI; chest pain; No edema, No irregular heart rate, No lightheadedness, No palpitations Gastrointestinal: No no symptoms reported, No As described under HPI, No abdomen distended, No abdominal pain, No blood streaked bowels, No constipation, No diarrhea, No nausea, No vomiting, No stool coloration changes Genitourinary: No As described under HPI, No burning, No dysuria, No discharge, No frequency, No flank pain, No hematuria, No urgency : No Skin: No rash, No skin related problems, No ulcerations Psychiatric/Neurological: No anxiety, No depression, No seizure, No focal weakness, No syncope Hematologic: No bleeding abnormalities All Other Systems Reviewed Negative Unless Noted: Yes [id number] Hx Patient Social History Marrital Status: Employed/Student: retired Alcohol Use: Denies Use Recreational Drug Use: No Smoking Status: Former Smoker Type Used: Cigarettes 2nd Hand Smoke Exposure: No Recent Foreign Travel: No Recent Infectious Disease Expo: No Hospitalization with Isolation: Denies Immunizations Up To Date Date of Pneumonia Vaccine: Jan 25, 2016 Past Medical History PMH As described under Assessment. Family Medical History Family History: Alcoholism 19 MOTHER Alzheimer's disease 19 FATHER Arthritis 19 FATHER Asthma 19 FATHER Cardiovascular disease 19 FATHER Cataracts 19 FATHER Diabetes mellitus Hypertension 19 FATHER 19 MOTHER Myocardial infarction 19 FATHER Osteoporosis 19 MOTHER Parkinson's disease 19 MOTHER Respiratory disorder 19 MOTHER No Family History of: Glaucoma Allergies and Home Medications Allergies Coded Allergies: No Known Drug Allergies (Unverified , 01/01/19) Home Medications Albuterol Sulfate 18 Gm Hfa.aer.ad, 2 PUFF INH Q4H, (Reported) Aspirin 81 Mg Tablet.dr, 81 MG PO DAILY, (Reported) Atorvastatin Calcium 80 Mg Tablet, 80 MG PO HS, (Reported) Buspirone HCl 7.5 Mg Tablet, 7.5 MG PO BID, (Reported) Cholecalciferol (Vitamin D3) 1,000 Unit Capsule, 1,000 UNIT PO DAILY, (Reported) Citalopram Hydrobromide 40 Mg Tablet, 40 MG PO DAILY, (Reported) Fluticasone/Umeclidin/Vilanter 1 Each Blst.w.dev, 1 PUFF INH DAILY, (Reported) Glimepiride 1 Mg Tablet, 1 MG PO BID, (Reported) Ipratropium/Albuterol Sulfate 3 Ml Ampul.neb, 3 ML NEB QID PRN for SHORTNESS OF BREATH, (Reported) Isosorbide Mononitrate 30 Mg Tab.er.24h, 30 MG PO DAILY, (Reported) Krill/Om-3/Dha/Epa/Phospho/Ast 1 Each Capsule, 1,000 MG PO DAILY, (Reported) Liraglutide 0.6 Mg/0.1 Ml Pen.injctr, 1.6 MG SC HS, (Reported) Loratadine 10 Mg Tablet, 10 MG PO DAILY, (Reported) Metoprolol Tartrate 25 Mg Tablet, 25 MG PO BID, (Reported) Montelukast Sodium 10 Mg Tablet, 10 MG PO HS, (Reported) Multivitamin 1 Each Tablet, 1 TAB PO DAILY, (Reported) Nitroglycerin 0.4 Mg Tab.subl, 0.4 MG SL UD PRN for CHEST PAIN, (Reported) Pantoprazole Sodium 40 Mg Tablet.dr, 40 MG PO DAILY, (Reported) Potassium Chloride 10 Meq Tablet.er, 10 MEQ PO DAILY, (Reported) Prednisone 10 Mg Tab, PO UD, (Reported) TAKE 6 TABS DAYS 1 & 2 TAKE 5 TABS DAYS 3 & 4 TAKE 4 TABS DAYS 5 & 6 TAKE 3 TABS DAYS 7 & 8 TAKE 2 TABS DAYS 9 & 10 TAKE 1 TAB DAYS 10 & 11 FILLED # 42 03-16-19 Ticagrelor 90 Mg Tablet, 90 MG PO BID, (Reported) Vit A/Vit C/Vit E/Zinc/Copper 1 Each Tablet, 1 TAB PO DAILY, (Reported) Vitamin C/Biotin 1 Each Tab.chew, 1 TAB.CHEW PO DAILY, (Reported) Patient Home Medication List Home Medication List Reviewed: Yes Physical Exam-Cardiology Physical Exam Vital Signs/I&O 03/20/19 03/20/19 03/20/19 03/20/19 12:00 13:00 16:05 19:00 Temp 98.1 Pulse 66 70 67 70 Resp 19 18 B/P (MAP) 140/81 (100) 125/68 (87) Pulse Ox 96 94 O2 Delivery Nasal Cannula Room Air O2 Flow Rate 3.00 03/20/19 03/20/19 19:57 21:24 Temp 98.4 Pulse 72 Resp 20 B/P (MAP) 131/80 (97) Pulse Ox 94 O2 Delivery Room Air Room Air 03/19/19 23:59 Intake Total 2258 ml Output Total 1600 ml Balance 658 ml Capillary Refill : Less Than 3 SecondsLess Than 3 Seconds Constitutional: appears stated age, AAO x 3; No apparent distress; well- developed, well-nourished HEENT: PERRL; No normal ENT inspection, No TMs normal, No pharynx normal, No scleral icterus (R), No scleral icterus (L), No pale conjunctivae (R), No pale conjunctivae (L), No photophobia, No TM abnormal (R), No TM abnormal (L), No pharyngeal erythema, No tonsillar exudate, No other, No discharge, No EOMI; hearing is well preserved; No hard of hearing; oral hygience is good; No ulceration, No xanthelasmas are seen Neck: No non-tender, No full range of motion, No supple, No normal inspection, No carotid bruit, No limited range of motion, No lymphadenopathy (R), No lymphadenopathy (L), No tender lateral, No tender midline, No thyromegaly, No o ther; carotid pulses are 2 + bilaterally; No with good upstrokes Respiratory: chest is bilaterally symmetric, lungs clear to auscultation Cardiovascular: regular rate-rhythm, S1 and S2 Gastrointestinal: No tender, No soft, No round, No distended, No pulsatile mass, No organomegaly, No guarding, No rebound, No tenderness, No hernia, No mass, No audible bowel sounds, No abnormal bowel sounds, No abdominal bruits, No spleenomegaly, No other Rectal: deferred Extremities: No normal range of motion, No non-tender, No normal inspection, No pedal edema, No calf tenderness, No normal capillary refill, No pelvis stable, No calf tenderness, No inflammation, No pedal edema, No slow capillary refill, No swelling, No other, No abrasion, No clubbing, No cyanosis, No ecchymosis, No laceration, No no lower extremity edema bilateral, No significant edema, No tenderness, No wound Neurologic/Psychiatric: no motor/sensory deficits, alert, normal mood/affect, oriented x 3, power is 5/5 both on sides Skin: No normal color, No warm/dry, No cyanosis, No cool, No diaphoresis, No damp, No ecchymosis, No jaundice, No mottled, No pallor, No rash, No tattoos/piercings, No ulcerations, No rash on exposed areas, No ulcerations on exposed areas, No other Data Review Labs Laboratory Tests 03/20/19 03:35: White Blood Count 15.5H, Red Blood Count 4.42, Hemoglobin 13.0, Hematocrit 41, Mean Corpuscular Volume 92, Mean Corpuscular Hemoglobin 29, Mean Corpuscular Hemoglobin Concent 32, Red Cell Distribution Width 13.4, Platelet Count 246, Mean Platelet Volume 11.1H, Neutrophils (%) (Auto) 87H, Lymphocytes (%) (Auto) 6L, Monocytes (%) (Auto) 7, Eosinophils (%) (Auto) 0, Basophils (%) (Auto) 0, Neutrophils # (Auto) 13.5H, Lymphocytes # (Auto) 0.9L, Monocytes # (Auto) 1.1H, Eosinophils # (Auto) 0.0, Basophils # (Auto) 0.0, Sodium Level 136, Potassium Level 3.6, Chloride Level 99, Carbon Dioxide Level 23, Anion Gap 14, Blood Urea Nitrogen 17, Creatinine 0.79, Estimat Glomerular Filtration Rate > 60, BUN/Creatinine Ratio 22, Glucose Level 188H, Calcium Level 9.8, Corrected Calcium 9.9, Phosphorus Level 3.4, Magnesium Level 2.1, Total Bilirubin 0.7, Aspartate Amino Transf (AST/SGOT) 13, Alanine Aminotransferase (ALT/SGPT) 36, Alkaline Phosphatase 111, Troponin I 0.049H, Total Protein 6.7, Albumin 3.9 03/20/19 11:21: Glucometer 256H 03/20/19 16:27: Glucometer 298H 03/20/19 19:55: Glucometer 307H Microbiology 03/19/19 Blood Culture - Preliminary, Resulted No growth ECG Impression ECG Initial ECG Rhythm: Normal Sinus Comment IVCD, Prolonged QTc 502 ms, PVCs A/P-Cardiology Assessment/Admission Diagnosis Unstable angina Coronary artery disease, s/p PCI, Acute diastolic CHF, Pneumonia, Leucocytosis, Hypertension, Hyperlipidemia. Plan Chest pain, shortness of breath, non-ST elevation myocardial infarction, slight elevation in troponin level. Patient had a cardiac catheterization done January 02, 2019 showing severe proximal and ostial obtuse marginal branch underwent 2 stent deployment to that artery. In addition she had severe diffuse disease in the proper circumflex artery, severe long segment stenosis in the mid LAD and severe stenosis at the midright coronary artery, discussed in length management plan, Staged PCI vs CABG. Unstable angina, Leukocytosis, shortness of breath, pneumonia, Managed by Dr. Keely Juarez, educated on smoking cessation Hypertension, controlled and monitored Hyperlipidemia, on Lipitor 80 mg daily Diabetes mellitus, followed and managed by primary care physician BMI 33, obesity, educated on weight loss Thank you for your consultation. Please call me if you have any questions. Bety Mercado MD, FACP, FACC, FSCAI, FHRS, CCDS Interventional Cardiology Cardiac Electrophysiology Vascular Medicine and Endovascular Interventions Clinical Quality Measures DVT/VTE Risk/Contraindication: Risk Factor Score Per Nursin RFS Level Per Nursing on Admit: 4+=Very High Jc MERCADO MD Mar 20, 2019 10:48
--- NOTE | 2019-03-20 15:54 | NUR ---
Patient arrived on unit at 1550.
[2019-03-20] MEDS: ATORVASTATIN 80 MG (LIPITOR) TABLET PO SCH (20:25)
[2019-03-20] MEDS: MONTELUKAST 10 MG (SINGULAIR) TAB PO SCH (20:25)
[2019-03-21 04:01] VITALS: BP 137/86
[2019-03-21] MEDS: methylPREDNISolone 40 MG/ML (Solu-MEDROL) VIAL IV SCH (04:04)
[2019-03-21] MEDS: CATHETER FLUSH 10 ML SYR IV SCH ×2 (04:05→12:43)
[2019-03-21] MEDS: VITAMIN D3 1,000 UNITS (CHOLECALCIFEROL) TABLET PO SCH (05:52)
[2019-03-21] MEDS: KCL 10 MEQ TAB (MICRO K) PO SCH (05:52)
[2019-03-21] MEDS: GLIMEPIRIDE 1 MG (AMARYL) TAB PO SCH (05:52)
[2019-03-21] MEDS: MULTIVIT W/MINERALS TAB (THERAGRAN M) PO SCH (05:52)
[2019-03-21] MEDS: inSUlin ASPART (NovoLOG) 1 UNIT/0.01 ML (CHARGE PER UNIT) SC SCH ×2 (06:05→11:22)
[2019-03-21] MEDS ORDERED: RT-ALBUTEROL/IPRATROPIUM 3 ML (DUONEB) VIAL INH PRN (07:00)
--- NOTE | 2019-03-21 07:47 | Pulmonary Progress Note ---
Subjective Time Seen by a Provider: 07:42 Subjective/Events-last exam No complications noted. Sepsis Event Evaluation Height, Weight, BMI Height: 6'0.00" Weight: 244lbs. 9.0oz. 110.591791mx; 33.2 BMI Method:Stated Exam Exam Vital Signs Date Time Temp Pulse Resp B/P (MAP) Pulse Ox O2 Delivery O2 Flow Rate FiO2 03/21/19 07:28 95 Room Air 03/21/19 07:00 71 03/21/19 04:01 97.5 63 22 137/86 (103) 94 Room Air 03/21/19 01:00 69 03/20/19 23:57 98.0 74 18 142/71 (94) 92 Room Air 03/20/19 21:24 Room Air 03/20/19 19:57 98.4 72 20 131/80 (97) 94 Room Air 03/20/19 19:00 70 03/20/19 16:05 98.1 67 18 125/68 (87) 94 Room Air 03/20/19 13:00 70 03/20/19 12:00 66 19 140/81 (100) 96 Nasal Cannula 3.00 03/20/19 09:00 96 Nasal Cannula 3.00 03/20/19 08:00 73 33 144/85 (104) 93 Nasal Cannula 3.00 I & O 03/21/19 07:00 Intake Total 1860 ml Output Total 1200 ml Balance 660 ml Height & Weight Height: 6'0.00" Weight: 244lbs. 9.0oz. 110.517471bp; 33.2 BMI Method:Stated General Appearance: No Apparent Distress, WD/WN, Anxious HEENT: PERRL/EOMI, Normal ENT Inspection, Pharynx Normal Neck: Full Range of Motion, Non Tender, Supple Respiratory: Chest Non Tender, No Accessory Muscle Use, No Respiratory Distress, Decreased Breath Sounds Cardiovascular: Regular Rate, Rhythm, No Edema, No Murmur Capillary Refill: Less Than 3 Seconds Gastrointestinal: normal bowel sounds, non tender, soft Extremity: Normal Capillary Refill, Pedal Edema Neurologic/Psychiatric: Alert, Oriented x3 Skin: Normal Color, Warm/Dry Lymphatic: No Adenopathy Results Lab Laboratory Tests 03/20/19 03:35 Assessment/Plan Assessment/Plan Acute respiratory failure -- Echocardiogram - cardiology -CXR reviewed COPDAE -failed out pt treatment. -Duonebs -Solumedrol - change to prednisone taper -Oxygen Leukocytosis -Probably secondary to steroids before and during hospitalization JAC -Pt has a home CPAP DM CAD hx HTN Pt is ok from pulmonary standpoint for discharge. JOSE LUIS MONTOYA DO Mar 21, 2019 07:46
[2019-03-21 08:00] VITALS: BP 167/79
[2019-03-21] MEDS ORDERED: predniSONE 10 MG TAB PO SCH (09:00)
[2019-03-21] MEDS ORDERED: RT-ALBUTEROL/IPRATROPIUM 3 ML (DUONEB) VIAL INH SCH ×2 (09:00→14:00)
[2019-03-21] MEDS: meTOprolol TARTRATE 25 MG (LOPRESSOR) TABLET PO SCH (09:12)
[2019-03-21] MEDS: busPIRone 15 MG (BUSPAR) TABLET PO SCH (09:12)
[2019-03-21] MEDS: ASPIRIN E.C. 81 MG (ECOTRIN) TAB PO SCH (09:13)
[2019-03-21] MEDS: LORATADINE (CLARITIN) 10 MG TAB PO SCH (09:13)
[2019-03-21] MEDS: PANTOPRAZOLE 40 MG (PROTONIX) TAB PO SCH (09:13)
[2019-03-21] MEDS: TICAGRELOR 90 MG TABLET (BRILINTA) PO SCH (09:13)
[2019-03-21] MEDS: ISOSORBIDE MONONITRATE 30 MG (IMDUR) TAB PO SCH (09:13)
[2019-03-21] MEDS: SENNA W/DOCUSATE (SENOKOT S) TABLET PO SCH (09:13)
[2019-03-21] MEDS ORDERED: inSUlin ASPART (NovoLOG) 1 UNIT/0.01 ML (CHARGE PER UNIT) SC ONE (11:30)
[2019-03-21] MEDS ORDERED: inSUlin (REGULAR) HUMAN 1 UNIT/0.01 ML (CHARGE PER UNIT) SC ONE (11:30)
[2019-03-21 12:00] VITALS: BP 133/78
[2019-03-21] MEDS ORDERED: FURO20TA4 PO (13:13)
--- NOTE | 2019-03-21 13:20 | Discharge Summary ---
Diagnosis/Chief Complaint Date of Admission Mar 19, 2019 at 10:53 Date of Discharge Discharge Date: Mar 21, 2019 Admission Diagnosis Assessment: Acute respiratory failure Pulmonary edema CP with elevated troponin Leukocytosis AECOPD Former smoker Probable JAC Debility DM Plan: Cardiology and Pulmonology consultations IV steroids Nebs O2 Discharge Diagnosis (1) Respiratory failure Status: Acute (2) COPD with exacerbation Status: Acute (3) Elevated brain natriuretic peptide (BNP) level Status: Acute (4) Diabetes mellitus Status: Chronic (5) COPD (chronic obstructive pulmonary disease) Status: Chronic (6) Leukocytosis Status: Acute Discharge Summary Discharge Physical Exam Allergies: Coded Allergies: No Known Drug Allergies (Unverified , 01/01/19) Vitals & I&Os Vital Signs Date Time Temp Pulse Resp B/P (MAP) Pulse Ox O2 Delivery O2 Flow Rate FiO2 03/21/19 12:44 66 03/21/19 12:00 97.6 20 133/78 (96) 96 Room Air 03/20/19 12:00 3.00 General Appearance: No Apparent Distress, WD/WN, Obese Respiratory: Chest Non Tender, Normal Breath Sounds, No Accessory Muscle Use, No Respiratory Distress, Crackles (2 fine basilar rales noted chest clear otherwise) Cardiovascular: Regular Rate, Rhythm, No Edema, No Gallop, No JVD, Normal Peripheral Pulses, Systolic Murmur (early systolic murmur noted best at the left lower sternal border and apex) Extremity: Normal Capillary Refill, No Calf Tenderness, No Pedal Edema Hospital Course Was the Problem List Reviewed?: Yes HPI: This is a 63yoWF known to me from prior admission then subsequent inpatient rehab hospital course after a critical illness and intubation with coronary stents placed and intubation who ultimately returned home, was connected with [facility] and will likely undergo coronary artery bypass graft in April who presented to the [place] ER with SOB, her BNP was 5,00 chest X-ray was consistent with pulmonary edema, white count was 21,000 but she is on steroids currently. EMS brought her into the ER and Pt is less hypoxic and will be c onsulting Dr. Riggs and Dr. Mercado once she arrives in cardiac step-down at [facility] in [place]. Dr. Rowe is her PCP patient was started on oral steroids Lasix and her other home medications which are numerous were initiated. She had a small bump in her troponin level but rather rapid resolution of shortness of breath. She had no infectious type symptoms with nonproductive cough that was significantly improved by the time of her discharge as well. Echocardiography is pending. Patient is aware of the possibility of significant infarct as she is having more shortness of breath or chest discomfort that she needs to return to the emergency room. Currently the game plan is to try to wait several weeks post-stenting and then undergo likely bypass surgery in [place]. She'll be discharged on furosemide 20 mg daily continuing the potassium that she was already on. She was advised to follow-up with Dr. Rowe next week unless she has an appointment with cardiovascular services at . She'll need repeat laboratory evaluation on her return including a basic metabolic panel considering the initiation of Lasix. She will continue current potassium replacement. Labs (last 24 hrs) Laboratory Tests 03/20/19 16:27: Glucometer 298H 03/20/19 19:55: Glucometer 307H 03/21/19 05:53: Glucometer 232H Microbiology 03/19/19 Blood Culture - Preliminary, Resulted No growth Patient resulted labs reviewed. Pending Labs Laboratory Tests 03/21/19 05:53: Glucometer 232 Imaging: Reviewed Imaging Report Discussion & Recommendations Discharge Planning: >30 minutes discharge planning Discharge Home Medications: Active Scripts Active Furosemide 20 Mg Tablet 20 Mg PO DAILY 30 Days Reported Nitroglycerin 0.4 Mg Tab.subl 0.4 Mg SL UD PRN Potassium Chloride 10 Meq Tablet.er 10 Meq PO DAILY Wvur-Dizs-Nwxlm Gummies (Vitamin C/Biotin) 1 Each Tab.chew 1 Tab.chew PO DAILY Preservision Areds Tablet (Vit A/Vit C/Vit E/Zinc/Copper) 1 Each Tablet 1 Tab PO DAILY Atorvastatin Calcium 80 Mg Tablet 80 Mg PO HS Isosorbide Mononitrate ER (Isosorbide Mononitrate) 30 Mg Tab.er.24h 30 Mg PO DAILY Ventolin Hfa (Albuterol Sulfate) 18 Gm Hfa.aer.ad 2 Puff INH Q4H Trelegy Ellipta 100-62.5-25 (Fluticasone/Umeclidin/Vilanter) 1 Each Blst.w.dev 1 Puff INH DAILY Prednisone 10 Mg Tab PO UD 12 Days TAKE 6 TABS DAYS 1 & 2 TAKE 5 TABS DAYS 3 & 4 TAKE 4 TABS DAYS 5 & 6 TAKE 3 TABS DAYS 7 & 8 TAKE 2 TABS DAYS 9 & 10 TAKE 1 TAB DAYS 10 & 11 FILLED # 42 7-22-19 Metoprolol Tartrate 25 Mg Tablet 25 Mg PO BID Iprat-Albut 0.5-3(2.5) mg/3 ml (Ipratropium/Albuterol Sulfate) 3 Ml Ampul.neb 3 Ml NEB QID PRN Glimepiride 1 Mg Tablet 1 Mg PO BID Montelukast Sodium 10 Mg Tablet 10 Mg PO HS Loratadine 10 Mg Tablet 10 Mg PO DAILY Aspirin EC (Aspirin) 81 Mg Tablet.dr 81 Mg PO DAILY Brilinta (Ticagrelor) 90 Mg Tablet 90 Mg PO BID Buspirone HCl 7.5 Mg Tablet 7.5 Mg PO BID Vitamin D3 (Cholecalciferol (Vitamin D3)) 1,000 Unit Capsule 1,000 Unit PO DAILY Krill Oil 1,000 mg Softgel (Krill/Om-3/Dha/Epa/Phospho/Ast) 1 Each Capsule 1,000 Mg PO DAILY Multivitamins (Multivitamin) 1 Each Tablet 1 Tab PO DAILY Victoza 2-Willi (Liraglutide) 0.6 Mg/0.1 Ml Pen.injctr 1.6 Mg SC HS Pantoprazole Sodium 40 Mg Tablet.dr 40 Mg PO DAILY Citalopram HBr (Citalopram Hydrobromide) 40 Mg Tablet 40 Mg PO DAILY Instructions to patient/family Please see electronic discharge instructions given to patient. 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
--- NOTE | 2019-03-21 13:34 | NUR ---
PT REQUESTING DISCHARGE. SPOKE WITH DR. KHAN FOR LONG TIME. STATES SHE WILL CALL ON SATURDAY FOR F/U WITH PLANS FOR CABG. DR. JOSEPH NOTIFIED AND ORDERS REC'D.
--- NOTE | 2019-03-21 13:35 | Cardiology Progress Note ---
Cardiology SOAP Progress Note Subjective: No further chest pain. Improved shortness of breath. Objective: I&O/Vital Signs 03/21/19 03/21/19 03/21/19 03/21/19 04:01 07:00 07:28 08:00 Temp 97.5 97.1 Pulse 63 71 84 Resp 22 20 B/P (MAP) 137/86 (103) 167/79 (108) Pulse Ox 94 95 97 O2 Delivery Room Air Room Air Room Air 03/21/19 03/21/19 03/21/19 09:00 12:00 12:44 Temp 97.6 Pulse 64 66 Resp 20 B/P (MAP) 133/78 (96) Pulse Ox 96 O2 Delivery Room Air Room Air 03/21/19 00:00 Intake Total 1460 ml Output Total 1200 ml Balance 260 ml Weight (Pounds): 244 Weight (Ounces): 9.0 Weight (Calculated Kilograms): 110.523861 Constitutional: appears stated age, AAO x 3; No apparent distress; well- developed, well-nourished Respiratory: chest is bilaterally symmetric, lungs clear to auscultation Cardiovascular: regular rate-rhythm, S1 and S2 Gastrointestional: No tender, No soft, No round, No distended, No pulsatile mass, No organomegaly, No guarding, No rebound, No tenderness, No hernia, No ma ss, No audible bowel sounds, No abnormal bowel sounds, No abdominal bruits, No spleenomegaly, No other Extremities: No normal range of motion, No non-tender, No normal inspection, No pedal edema, No calf tenderness, No normal capillary refill, No pelvis stable, No calf tenderness, No inflammation, No pedal edema, No slow capillary refill, No swelling, No other, No abrasion, No clubbing, No cyanosis, No ecchymosis, No laceration, No no lower extremity edema bilateral, No significant edema, No tenderness, No wound Neurologic/Psychiatric: no motor/sensory deficits, alert, normal mood/affect, oriented x 3, power is 5/5 both on sides Skin: No normal color, No warm/dry, No cyanosis, No cool, No diaphoresis, No damp, No ecchymosis, No jaundice, No mottled, No pallor, No rash, No tattoos/piercings, No ulcerations, No rash on exposed areas, No ulcerations on exposed areas, No other Results/Procedures: Labs Laboratory Tests 03/20/19 16:27: Glucometer 298H 03/20/19 19:55: Glucometer 307H 03/21/19 05:53: Glucometer 232H Microbiology 03/19/19 Blood Culture - Preliminary, Resulted No growth A/P: Assessment/Dx: Non-STEMI Coronary artery disease, s/p PCI, Acute diastolic CHF, Pneumonia, Leucocytosis, Hypertension, Hyperlipidemia. Plan: Chest pain, shortness of breath, non-ST elevation myocardial infarction, slight elevation in troponin level. Patient had a cardiac catheterization done January 02, 2019 showing severe proximal and ostial obtuse marginal branch underwent 2 stent deployment to that artery. In addition she had severe diffuse disease in the proper circumflex artery, severe long segment stenosis in the mid LAD and severe stenosis at the midright coronary artery, discussed in length management plan, Staged PCI vs CABG. I discussed at length with the patient and discussed that she is had mildly abnormal troponin which represent non-STEMI. I discussed option of PCI versus CABG. In patients that have diabetes CABG is superior to PCI. However there is a risk of non-STEMI on STEMI while the patient is waiting for surgery. The patient understands the risk. She will be discharged later today. She will call the cardiac surgery team on Saturday to discuss about earlier appointment and early cardiac surgery. I will recommended cardiac surgery be done on dual antiplatelet therapy. Non-STEMI, continue dual antiplatelet therapy. Leukocytosis, shortness of breath, pneumonia, Managed by Dr. Riggs Tobaccoism, educated on smoking cessation Hypertension, controlled and monitored Hyperlipidemia, on Lipitor 80 mg daily Diabetes mellitus, followed and managed by primary care physician BMI 33, obesity, educated on weight loss Thank you for your consultation. Please call me if you have any questions. Bety Mercado MD, FACP, FACC, FSCAI, FHRS, CCDS Interventional Cardiology Cardiac Electrophysiology Vascular Medicine and Endovascular Interventions Jc MERCADO MD Mar 21, 2019 1:35 pm
--- NOTE | 2019-03-21 13:40 | NUR ---
DC'D PER ESTUARDO WITH . REVIEWED RX AND INST AND PT TO F/U SATURDAY WITH [facility] PER DR. KHAN.
== END 2019-03-21 13:40 | disposition home or self-care (01) | DRG 189 ==
LOC: EDUNIT# 07:21 → ER FS 07:22 → ICU 10:53 → 4TH 03-20 15:45
PROVIDERS: ADMIT Internal Medicine; ATTEND Internal Medicine
DX: J96.01 Acute respiratory failure with hypoxia (principal); J44.1 Chronic obstructive pulmonary disease with (acute) exacerbation; I11.0 Hypertensive heart disease with heart failure; I50.31 Acute diastolic (congestive) heart failure; I25.110 Atherosclerotic heart disease of native coronary artery with unstable angina pectoris; I25.2 Old myocardial infarction; E11.9 Type 2 diabetes mellitus without complications; G47.33 Obstructive sleep apnea (adult) (pediatric); R53.81 Other malaise; D72.823 Leukemoid reaction; E78.5 Hyperlipidemia, unspecified; E66.9 Obesity, unspecified; T38.0X5A Adverse effect of glucocorticoids and synthetic analogues, initial encounter; Z68.33 Body mass index [BMI] 33.0-33.9, adult; Z95.5 Presence of coronary angioplasty implant and graft; Z87.891 Personal history of nicotine dependence; Z87.01 Personal history of pneumonia (recurrent); Z85.820 Personal history of malignant melanoma of skin; Z79.02 Long term (current) use of antithrombotics/antiplatelets; Z79.84 Long term (current) use of oral hypoglycemic drugs
CPT/HCPCS: 36415; 71045; 80053; 82553; 82962; 83735; 83880; 84100; 84484; 85007; 85025; 85027; 87040; 93005; 93041; 93306; 94640; 94760; 96374; 96375

== ENCOUNTER 2019-05-02 15:01 | Emergency (ER) | payer MEDICARE, OTHER ==
[~2019-05-02] VITALS: Ht 182.9 cm; Wt 114.3 kg
[~2019-05-02 15:01] MED LIST changes: +ALBU18HF2 INH; +BETA1TAB15 PO; +FLUT1BLS3 INH; +FURO20TA4 PO; +NITR0.4T39 SL; +POTA10TA10 PO; +PRD10T PO; +VITA-252 PO
[2019-05-02] MEDS ORDERED: RT-ALBUTEROL/IPRATROPIUM 3 ML (DUONEB) VIAL ONE (15:14)
--- NOTE | 2019-05-02 15:28 | ED Respiratory ---
General Stated Complaint: SOB Source: patient, family Exam Limitations: no limitations History of Present Illness Date Seen by Provider: May 02, 2019 Time Seen by Provider: 15:14 Initial Comments Patient arrives to the ER by private conveyance with family and chief complaint of shortness of breath since yesterday. She's had a cough today mildly productive. No fevers or chills. She does have a history of CHF, coronary disease and COPD. She says usually with her COPD if she takes a breathing treatment and makes it feel better but today it open her lungs up she said she still was not able to catch her breath and so she suspected maybe her CHF was getting worse. She's noticed an 8 pound weight gain over the past 2 days but no edema in her abdomen or feet. She took her Lasix 40 mg per scheduled this morning and did produce urine multiple times. She still feels short of breath and shaky. In December, 4 months ago she had pneumonia, sepsis with respiratory failure and had to be intubated and also had a non-STEMI. She had [address] Mercado and was referred on to [facility] Dr. Roland for CABG. She has an appointment Saturday, 4 days from now at [facility]. Allergies and Home Medications Allergies Coded Allergies: No Known Drug Allergies (Unverified , 01/01/19) Home Medications Albuterol Sulfate 18 Gm Hfa.aer.ad, 2 PUFF INH Q4H, (Reported) Aspirin 81 Mg Tablet.dr, 81 MG PO DAILY, (Reported) Atorvastatin Calcium 80 Mg Tablet, 80 MG PO HS, (Reported) Buspirone HCl 7.5 Mg Tablet, 7.5 MG PO BID, (Reported) Cholecalciferol (Vitamin D3) 1,000 Unit Capsule, 1,000 UNIT PO DAILY, (Reported) Citalopram Hydrobromide 40 Mg Tablet, 40 MG PO DAILY, (Reported) Fluticasone/Umeclidin/Vilanter 1 Each Blst.w.dev, 1 PUFF INH DAILY, (Reported) Furosemide 20 Mg Tablet, 20 MG PO DAILY Prescribed by: EVITA JOSEPH on 03/21/19 1313 Glimepiride 1 Mg Tablet, 1 MG PO BID, (Reported) Ipratropium/Albuterol Sulfate 3 Ml Ampul.neb, 3 ML NEB QID PRN for SHORTNESS OF BREATH, (Reported) Isosorbide Mononitrate 30 Mg Tab.er.24h, 30 MG PO DAILY, (Reported) Krill/Om-3/Dha/Epa/Phospho/Ast 1 Each Capsule, 1,000 MG PO DAILY, (Reported) Liraglutide 0.6 Mg/0.1 Ml Pen.injctr, 1.6 MG SC HS, (Reported) Loratadine 10 Mg Tablet, 10 MG PO DAILY, (Reported) Metoprolol Tartrate 25 Mg Tablet, 25 MG PO BID, (Reported) Montelukast Sodium 10 Mg Tablet, 10 MG PO HS, (Reported) Multivitamin 1 Each Tablet, 1 TAB PO DAILY, (Reported) Nitroglycerin 0.4 Mg Tab.subl, 0.4 MG SL UD PRN for CHEST PAIN, (Reported) Pantoprazole Sodium 40 Mg Tablet.dr, 40 MG PO DAILY, (Reported) Potassium Chloride 10 Meq Tablet.er, 10 MEQ PO DAILY, (Reported) Prednisone 10 Mg Tab, PO UD, (Reported) TAKE 6 TABS DAYS 1 & 2 TAKE 5 TABS DAYS 3 & 4 TAKE 4 TABS DAYS 5 & 6 TAKE 3 TABS DAYS 7 & 8 TAKE 2 TABS DAYS 9 & 10 TAKE 1 TAB DAYS 10 & 11 FILLED # 42 03-16-19 Ticagrelor 90 Mg Tablet, 90 MG PO BID, (Reported) Vit A/Vit C/Vit E/Zinc/Copper 1 Each Tablet, 1 TAB PO DAILY, (Reported) Vitamin C/Biotin 1 Each Tab.chew, 1 TAB.CHEW PO DAILY, (Reported) Patient Home Medication List Home Medication List Reviewed: Yes Review of Systems Review of Systems Constitutional: No chills, No diaphoresis EENTM: No ear discharge, No ear pain Respiratory: cough, orthopnea, phlegm, short of breath, wheezing Cardiovascular: No chest pain, No edema; Hx of Intervention; No palpitations, No syncope; vascular heart diseas Gastrointestinal: No abdominal pain, No constipation, No diarrhea, No nausea Genitourinary: No discharge, No dysuria Musculoskeletal: No back pain, No joint pain Past Msjwmmz-Eeuahr-Kkitlv Hx Patient Social History Alcohol Use: Denies Use Recreational Drug Use: No Smoking Status: Former Smoker Type Used: Cigarettes Former Smoker, Quit: January 01, 2019 2nd Hand Smoke Exposure: No Recent Hopitalizations: Yes (VIA [employer] 01/17/19) Immunizations Up To Date PED Vaccines UTD: Yes Date of Pneumonia Vaccine: Jan 25, 2016 Seasonal Allergies Seasonal Allergies: No Past Medical History Surgeries: Yes (Coronary stenting x 2 12/2018) Section, Coronary Stent, Hysterectomy Respiratory: Yes (Initiation home CPAP 03/18/19, Tobaccoism Hx) Sleep Apnea, COPD Currently Using CPAP: No Currently Using BIPAP: No Cardiac: Yes Coronary Artery Disease, Heart Attack, Hypertension 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 Sexually Transmitted Disease: No HIV/AIDS: No Genitourinary: No Gastrointestinal: No Musculoskeletal: No Endocrine: Yes Diabetes, Non-Insulin dep HEENT: No Cancer: Yes Melanoma Did You Recieve Any Treatments: No What Type of Treatment Did You: Surgical Intervention Psychosocial: No Integumentary: Yes (Melanoma on Right arm Removed) Blood Disorders: No Adverse Reaction/Blood Tranf: No Family Medical History Alcoholism 19 MOTHER Alzheimer's disease 19 FATHER Arthritis 19 FATHER Asthma 19 FATHER Cardiovascular disease 19 FATHER Cataracts 19 FATHER Diabetes mellitus Hypertension 19 FATHER 19 MOTHER Myocardial infarction 19 FATHER Osteoporosis 19 MOTHER Parkinson's disease 19 MOTHER Respiratory disorder 19 MOTHER No Family History of: Glaucoma Physical Exam Vital Signs - First Documented 05/02/19 15:10 Temp 98.1 Pulse 62 Resp 17 B/P (MAP) 122/97 (105) Pulse Ox 96 O2 Delivery Room Air Capillary Refill : Height: 6'0.00" Weight: 244lbs. 9.0oz. 110.188985ll; 33.2 BMI Method:Stated General Appearance: WD/WN, mild distress Eyes: Bilateral Eye Normal Inspection, Bilateral Eye PERRL, Bilateral Eye EOMI HEENT: PERRL/EOMI, normal ENT inspection, pharynx normal Respiratory: chest non-tender, respiratory distress (mild), accessory muscle use (mild); No rales; wheezing, expiration Cardiovascular: normal peripheral pulses, regular rate, rhythm, no edema, no JVD Gastrointestinal: non tender, soft Neurologic/Psychiatric: alert, normal mood/affect, oriented x 3 Skin: normal color, warm/dry Focused Exam Lactate Level 05/02/19 15:30: Lactic Acid Level 2.14*H 05/02/19 17:30: Lactic Acid Level 2.04*H Lactic Acid Level Laboratory Tests Test 05/02/19 15:30 05/02/19 17:30 Lactic Acid Level 2.14 MMOL/L (0.50-2.00) *H 2.04 MMOL/L (0.50-2.00) *H Procedures/Interventions Date of ETT Placement: January 02, 2019 Time of ETT Placement: 1119 Progress/Results/Core Measures Suspected Sepsis SIRS Temperature: Pulse: Respiratory Rate: Laboratory Tests 05/02/19 15:30: White Blood Count 9.3 Blood Pressure / Mean: 05/02/19 15:30: Lactic Acid Level 2.14*H 05/02/19 17:30: Lactic Acid Level 2.04*H Laboratory Tests 05/02/19 15:30: Creatinine 1.06, INR Comment 0.9, Platelet Count 221, Total Bilirubin 0.4 Results/Orders Lab Results Laboratory Tests Test 05/02/19 15:30 05/02/19 17:30 Range/Units White Blood Count 9.3 4.3-11.0 10^3/uL Red Blood Count 4.44 4.35-5.85 10^6/uL Hemoglobin 13.5 11.5-16.0 G/DL Hematocrit 41 35-52 % Mean Corpuscular Volume 91 80-99 FL Mean Corpuscular Hemoglobin 30 25-34 PG Mean Corpuscular Hemoglobin Concent 33 32-36 G/DL Red Cell Distribution Width 13.6 10.0-14.5 % Platelet Count 221 130-400 10^3/uL Mean Platelet Volume 10.7 H 7.4-10.4 FL Neutrophils (%) (Auto) 59 42-75 % Lymphocytes (%) (Auto) 25 12-44 % Monocytes (%) (Auto) 9 0-12 % Eosinophils (%) (Auto) 6 0-10 % Basophils (%) (Auto) 1 0-10 % Neutrophils # (Auto) 5.5 1.8-7.8 X 10^3 Lymphocytes # (Auto) 2.3 1.0-4.0 X 10^3 Monocytes # (Auto) 0.9 0.0-1.0 X 10^3 Eosinophils # (Auto) 0.5 H 0.0-0.3 10^3/uL Basophils # (Auto) 0.1 0.0-0.1 10^3/uL Prothrombin Time 12.3 12.2-14.7 SEC INR Comment 0.9 0.8-1.4 Activated Partial Thromboplast Time 32 24-35 SEC Sodium Level 135 135-145 MMOL/L Potassium Level 4.6 3.6-5.0 MMOL/L Chloride Level 94 L 98-107 MMOL/L Carbon Dioxide Level 23 21-32 MMOL/L Anion Gap 18 H 5-14 MMOL/L Blood Urea Nitrogen 17 7-18 MG/DL Creatinine 1.06 0.60-1.30 MG/DL Estimat Glomerular Filtration Rate 52 BUN/Creatinine Ratio 16 Glucose Level 236 H 70-105 MG/DL Lactic Acid Level 2.14 *H 2.04 *H 0.50-2.00 MMOL/L Calcium Level 9.4 8.5-10.1 MG/DL Corrected Calcium 9.4 8.5-10.1 MG/DL Total Bilirubin 0.4 0.1-1.0 MG/DL Aspartate Amino Transf (AST/SGOT) 17 5-34 U/L Alanine Aminotransferase (ALT/SGPT) 18 0-55 U/L Alkaline Phosphatase 95 40-136 U/L Troponin I < 0.30 < 0.30 <0.30 NG/ML Pro-B-Type Natriuretic Peptide 985.3 H <75.0 PG/ML Total Protein 6.7 6.4-8.2 GM/DL Albumin 4.0 3.2-4.5 GM/DL My Orders Orders - JOSE LUND Albuterol/Ipra Inhalation Soln (Duoneb I (05/02/19 15:14) Albuterol/Ipra Inhalation Soln (Duoneb I (05/02/19 15:30) Svn Small Volume Nebulizer (05/02/19 15:22) Chest Pa/Lat (2 View) (05/02/19 15:22) Probnp Fs (05/02/19 15:22) Cbc With Automated Diff (05/02/19 15:22) Comprehensive Metabolic Panel (05/02/19 15:22) Troponin I (05/02/19 15:22) Protime With Inr (05/02/19 15:22) Partial Thromboplastin Time (05/02/19 15:22) Blood Culture (05/02/19 15:22) Lactic Acid Analyzer (05/02/19 15:22) Continuous Ekg Monitoring (05/02/19 15:22) Ekg Tracing (05/02/19 15:22) Ekg Tracing (05/02/19 16:11) Troponin I (05/02/19 17:30) Medications Given in ED Current Medications Medications Dose Ordered Sig/Ciara Route Start Time Stop Time Status Last Admin Dose Admin Albuterol/ Ipratropium 3 ml ONCE ONCE INH 05/02/19 15:30 05/02/19 15:31 DC 05/02/19 15:35 3 ML Vital Signs/I&O 05/02/19 05/02/19 15:10 15:30 Temp 98.1 Pulse 62 Resp 17 B/P (MAP) 122/97 (105) Pulse Ox 96 95 O2 Delivery Room Air Room Air Capillary Refill : Progress Note #1: Time: 15:27 Progress Note Labs to include troponin, BNP. PT/INR/PTT in case she needs heparin drip. She's not having any chest pain at this time. She does still have wheezes so we'll give her a DuoNeb reading treatment get a 2 view chest x-ray and keep her on the monitor. Initial EKG unremarkable. Echocardiogram Dr. Mercado February 2019: Left ventricular wall thickness mildly moderately increased with concentric hypertrophy, normal systolic function of 55-65%. Moderate to severe mitral regurgitation Cardiac catheterization January 02, 2019 showing severe proximal and ostial obtuse marginal branch stenosis with placement of 2 stents. Severe diffuse disease in the proper certain complex artery, severe long segment stenosis in the mid LAD and severe stenosis at the mid right coronary artery. Tobaccoism, hyperlipidemia, diabetes, BMI 33, history of NSTEMI. Progress Note #2: Time: 15:59 Progress Note After a DuoNeb her work of breathing is acting normal and her oxygen saturations are still in the high 90s. She still not having any chest pain. Her expiratory wheezes are gone. She is not using accessory muscles to breathe. She says she feels better. Chest x-ray does not demonstrate any pulmonary edema/congestion. No overt external signs of heart failure exacerbation. This is Less likely atypical angina since it was improved with a DuoNeb and she had monster ball improvement in her breath sounds and work of breathing coinciding with her improvement in symptoms. Progress Note #3: Time: 16:21 Progress Note Her BNP is acceptable. The past she was in the 3-5000 range when she was in fluid overload and today she is 1000. Chest x-ray unremarkable for acute disease. I suspect this is just a COPD exacerbation. She should not hold her Lasix despite the mildly elevated lactate which is probably indicative of mild dehydration secondary to the Lasix which does seem to be working per her history. It would be reasonable to do a delta troponin however. Delta EKG. ECG Initial ECG Impression Date: May 02, 2019 Initial ECG Impression Time: 15:15 Initial ECG Rate: 55 Initial ECG Rhythm: Normal Sinus Initial ECG Intervals: Normal Initial ECG Impression: Normal, Nonspecific Changes Initial ECG Comparisson: Unchanged Comment Right bundle-branch block and LVH. Sinus rhythm without ST elevation or depression. Respiratory artifact noted. EKG : EKG Time: 16:41 Rate: 53 Rhythm: Normal Sinus Intervals: Normal Intervals Right bundle-branch block and left anterior fascicular block with LVH. Sinus rhythm without clinically significant ST elevation or depression. Diagnostic Imaging Diagonstic Imaging: Xray Plain Films/CT/US/NM/MRI: chest (2v) Comments No acute cardiopulmonary processes noted. NAME: CARMEN RICHARDSON [facility] REC#: [id number] PT STATUS: REG ER : 1955 PHYSICIAN: JOSE LUND MD ADMIT DATE: 05/02/19/ER FS Draft Date of Exam:05/02/19 CHEST PA/LAT (2 VIEW) INDICATION: Shortness of breath. EXAMINATION: PA and lateral chest at 3:32 p.m. FINDINGS: The heart size is within normal limits and stable when compared to 03/20/2019. The central pulmonary vascularity is somewhat prominent but no different than on the prior exam. The elevated right hemidiaphragm, seen previously, is again visualized and unchanged as well. There is no evidence for failure, pneumonia or for a pleural effusion. The mediastinum is not widened. The osseous structures are intact. IMPRESSION: There is no evidence for active disease. When compared to the previous study, there has been no adverse change. Dictated on workstation # [id number] Dict: 05/02/19 1558 Trans: 05/02/19 1603 [facility] [id number] Interpreted by: GEORGI ALLEN MD Electronically signed by: Reviewed: Reviewed by Me Departure Impression Primary Impression: COPD exacerbation Disposition: HOME, SELF-CARE Condition: Improved Departure-Patient Inst. Decision time for Depature: 18:01 Referrals: MARYSOL ROWE MD (PCP/Family) Primary Care Physician Patient Instructions: Chronic Obstructive Pulmonary Disease (COPD), Including Emphysema Add. Discharge Instructions: Start taking your DuoNeb 4 times a day on a schedule. You may take the DuoNeb in between those scheduled doses if necessary for wheezing coughing or shortness of breath. Follow-up with primary care as necessary. Keep your scheduled appointment with the cardiothoracic surgeon at [facility]. If you begin to experience chest pain, shortness of breath or other worrisome symptoms please return to the nearest ER. JOSE LUND May 02, 2019 15:28
[2019-05-02] MEDS ORDERED: RT-ALBUTEROL/IPRATROPIUM 3 ML (DUONEB) VIAL INH ONE (15:30)
[2019-05-02 15:47] LABS: BASOPHILS % (AUTO) 1 % (0-10); EOSINOPHILS % (AUTO) 6 % (0-10); HEMATOCRIT 41 % (35-52); HEMOGLOBIN 13.5 G/DL (11.5-16.0); LYMPHOCYTES # (AUTO) 2.3 X 10^3 (1.0-4.0); LYMPHOCYTES % (AUTO) 25 % (12-44); MEAN CORPUSCULAR HEMOGLOBIN 30 PG (25-34); MEAN CORPUSCULAR HGB CONC 33 G/DL (32-36); MEAN CORPUSCULAR VOLUME 91 FL (80-99); MEAN PLATELET VOLUME 10.7 FL (7.4-10.4); MONOCYTES # (AUTO) 0.9 X 10^3 (0.0-1.0); MONOCYTES % (AUTO) 9 % (0-12); NEUTROPHILS # (AUTO) 5.5 X 10^3 (1.8-7.8); NEUTROPHILS % (AUTO) 59 % (42-75); PLATELET COUNT 221 10^3/uL (130-400); RED CELL DISTRIBUTION WIDTH 13.6 % (10.0-14.5); WHITE BLOOD COUNT 9.3 10^3/uL (4.3-11.0)
[2019-05-02 15:48] LABS: BASOPHILS # (AUTO) 0.1 10^3/uL (0.0-0.1); EOSINOPHILS # (AUTO) 0.5 10^3/uL (0.0-0.3)
--- NOTE | 2019-05-02 16:04 | Diagnostic Imaging Report ---
INDICATION: Shortness of breath. EXAMINATION: PA and lateral chest at 3:32 p.m. FINDINGS: The heart size is within normal limits and stable when compared to 03/20/2019. The central pulmonary vascularity is somewhat prominent but no different than on the prior exam. The elevated right hemidiaphragm, seen previously, is again visualized and unchanged as well. There is no evidence for failure, pneumonia or for a pleural effusion. The mediastinum is not widened. The osseous structures are intact. IMPRESSION: There is no evidence for active disease. When compared to the previous study, there has been no adverse change. Dictated by: Dictated on workstation # [id number]
[2019-05-02 16:06] LABS: INR 0.9 (0.8-1.4); PROTHROMBIN TIME PATIENT 12.3 SEC (12.2-14.7)
[2019-05-02 16:17] LABS: BILIRUBIN,TOTAL 0.4 MG/DL (0.1-1.0); BUN/CREATININE RATIO 16; CALCIUM 9.4 MG/DL (8.5-10.1); CARBON DIOXIDE 23 MMOL/L (21-32); CHLORIDE 94 MMOL/L (98-107); CREATININE SERUM 1.06 MG/DL (0.60-1.30); GFR ESTIMATED 52; GLUCOSE 236 MG/DL (70-105); POTASSIUM 4.6 MMOL/L (3.6-5.0); SODIUM 135 MMOL/L (135-145)
[2019-05-02 16:18] LABS: ALANINE AMINOTRANSFERASE 18 U/L (0-55); ALKALINE PHOSPHATASE 95 U/L (40-136); TOTAL PROTEIN 6.7 GM/DL (6.4-8.2)
[2019-05-02 18:04] VITALS: BP 114/86
== END 2019-05-02 18:13 | disposition home or self-care (01) ==
LOC: EDUNIT# 15:01 → ER FS 15:02
DX: J44.1 Chronic obstructive pulmonary disease with (acute) exacerbation (principal); I11.0 Hypertensive heart disease with heart failure; I50.9 Heart failure, unspecified; I25.10 Atherosclerotic heart disease of native coronary artery without angina pectoris; G47.30 Sleep apnea, unspecified; E11.9 Type 2 diabetes mellitus without complications; Z85.828 Personal history of other malignant neoplasm of skin; Z95.5 Presence of coronary angioplasty implant and graft; Z95.1 Presence of aortocoronary bypass graft; Z79.82 Long term (current) use of aspirin; Z79.84 Long term (current) use of oral hypoglycemic drugs; Z87.891 Personal history of nicotine dependence; Z90.710 Acquired absence of both cervix and uterus; Z82.49 Family history of ischemic heart disease and other diseases of the circulatory system
CPT/HCPCS: 36415; 71046; 80053; 83605; 83880; 84484; 85025; 85610; 85730; 87040; 93005; 94640

== ENCOUNTER 2019-06-10 13:25 | Inpatient (IN) | payer MEDICARE, OTHER ==
[~2019-06-10] VITALS: Ht 182.9 cm; Wt 118.7 kg
[~2019-06-10 13:25] MED LIST changes: -GLIM1TAB PO; +GLIM1TAB2 PO; -GLIM4TAB PO; +GLIM4TAB3 PO
[2019-06-10 16:33] VITALS: BP 149/75
[2019-06-10] MEDS ORDERED: HEParin 1000 UNIT/ML (10ML VIAL) FOR BOLUS IV PRN (17:15)
--- NOTE | 2019-06-10 17:19 | Consultation-Cardiology ---
HPI-Cardiology Cardiology Consultation Date of Consultation 06/10/19 Date of Admission Time Seen by Provider: 17:16 Indication: Atrial fibrillation HPI 64-year-old lady with history of coronary artery disease, had CABG 3 with mitral valve repair done 3 weeks ago, was at for follow-up where she was noted to be in atrial fibrillation, denied any chest pain, no palpitation, no syncope, feeling some fluttering sensation in her chest. I was contacted by Dr. Bailey from regarding initiating her on aggressive anticoagulation with heparin and Coumadin. Patient was admitted directly. Home Medications & Allergies Allergies: Coded Allergies: No Known Drug Allergies (Unverified , 01/01/19) Home Medication List Reviewed: Yes [id number]-Amunbp Hx Patient Social History Marital Status: Employed/Student: employed Type Used: Cigarettes 2nd Hand Smoke Exposure: No Recent Foreign Travel: No Recent Infectious Disease Expo: No Recent Hopitalizations: Yes (VIA [employer] 01/17/19) Immunizations Up To Date Date of Pneumonia Vaccine: Jun 11, 2017 Date of Influenza Vaccine: Jun 08, 2019 Past Medical History Discussed below Family Medical History Family History: Alcoholism 19 MOTHER Alzheimer's disease 19 FATHER Arthritis 19 FATHER Asthma 19 FATHER Cardiovascular disease 19 FATHER Cataracts 19 FATHER Diabetes mellitus Hypertension 19 FATHER 19 MOTHER Myocardial infarction 19 FATHER Osteoporosis 19 MOTHER Parkinson's disease 19 MOTHER Respiratory disorder 19 MOTHER No Family History of: Glaucoma Review of Systems-General Review of Systems Constitutional: no symptoms reported, see HPI EENTM: see HPI, no symptoms reported Respiratory: no symptoms reported, see HPI Cardiovascular: see HPI; No chest pain, No edema, No Hx of Intervention; palpitations; No syncope, No vascular heart diseas, No other Gastrointestinal: no symptoms reported, see HPI Genitourinary: no symptoms reported, see HPI Musculoskeletal: no symptoms reported, see HPI Skin: no symptoms reported, see HPI Psychiatric/Neurological: No Symptoms Reported, See HPI Reviewed Test Results Reviewed Test Results Lab Labs were drawn today Physical Exam Physical Exam Vital Signs Vital Signs - First Documented 06/10/19 16:33 Temp 36.9 Pulse 54 Resp 15 B/P (MAP) 149/75 (99) Pulse Ox 96 O2 Delivery Room Air Capillary Refill : Height, Weight, BMI Height: 6'0" Weight: 252lbs. 9.0oz. 114.329613cw; 33.83 BMI Method:Stated General Appearance: No Apparent Distress, WD/WN Eyes: Bilateral Eye Normal Inspection, Bilateral Eye PERRL, Bilateral Eye EOMI HEENT: PERRL/EOMI, TMs Normal, Normal ENT Inspection, Pharynx Normal, Moist Mucous Membranes Neck: Full Range of Motion, Normal Inspection, Non Tender, Supple, Carotid Bruit Respiratory: Chest Non Tender, Normal Breath Sounds, No Accessory Muscle Use, No Respiratory Distress Cardiovascular: No Edema, No Gallop, No JVD, Normal Peripheral Pulses, Systolic Murmur, Irregularly Irregular Gastrointestinal: Normal Bowel Sounds, No Organomegaly, No Pulsatile Mass, Non Tender, Soft Back: Normal Inspection, No CVA Tenderness, No Vertebral Tenderness Extremity: Normal Capillary Refill, Normal Inspection, Normal Range of Motion, Non Tender, No Calf Tenderness, No Pedal Edema Neurologic/Psychiatric: Alert, Oriented x3, No Motor/Sensory Deficits, 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 Skin: Normal Color, Warm/Dry Lymphatic: No Adenopathy A/P-Cardiology Admission Diagnosis Acute atrial fibrillation Coronary artery disease Hypertension Hyperlipidemia Assessment/Plan Atrial fibrillation with controlled heart rate, no onset, patient has been on amiodarone which will be continued, started on heparin drip and loading Coumadin monitoring INR closely, continue on metoprolol and monitor next Coronary artery disease status post CABG 3 done 3 weeks ago, recovering well. Continue to monitor Severe mitral regurgitation, status post mitral valve repair with a ring and a clip, doing well. Continue to monitor next Hypertension, restart home medication monitor next Hyperlipidemia, restart Lipitor 80 mg and monitor Diabetes mellitus, followed and managed by primary care physician Tobaccoism, stopped smoking after her bypass surgery. Clinical Quality Measures DVT/VTE Risk/Contraindication: Risk Factor Score Per Nursin RFS Level Per Nursing on Admit: 4+=Very High ERIN SANTIAGO MD Jun 10, 2019 17:19
[2019-06-10 17:36] LABS: HEMOGLOBIN 9.6 G/DL (11.5-16.0); MEAN PLATELET VOLUME 9.4 FL (7.4-10.4); RED CELL DISTRIBUTION WIDTH 17.9 % (10.0-14.5); WHITE BLOOD COUNT 10.8 10^3/uL (4.3-11.0)
[2019-06-10 17:47] LABS: INR 1.2 (0.8-1.4); PROTHROMBIN TIME PATIENT 15.6 SEC (12.2-14.7)
[2019-06-10 17:55] LABS: ALBUMIN 3.5 GM/DL (3.2-4.5); BILIRUBIN,TOTAL 0.6 MG/DL (0.1-1.0); CALCIUM 8.8 MG/DL (8.5-10.1); CREATININE SERUM 1.39 MG/DL (0.60-1.30); POTASSIUM 4.5 MMOL/L (3.6-5.0); TOTAL PROTEIN 6.2 GM/DL (6.4-8.2)
[2019-06-10] MEDS: HEParin DRIP 25000 UNIT/500ML 500 ML IV SCH (17:58)
[2019-06-10] MEDS ORDERED: warFARin 10 MG (COUMADIN) TAB PO SCH (18:00)
[2019-06-10 20:00] VITALS: BP 134/70
[2019-06-10] MEDS: AMIODARONE 200 MG (CORDARONE) TAB PO SCH (21:15)
[2019-06-10] MEDS ORDERED: ACETAMINOPHEN 325 MG TABLET ONE (21:55)
[2019-06-11 00:26] VITALS: BP 134/71
[2019-06-11 03:58] LABS: INR 1.1 (0.8-1.4); PROTHROMBIN TIME PATIENT 14.7 SEC (12.2-14.7)
[2019-06-11 04:35] VITALS: BP 158/71
[2019-06-11 07:46] VITALS: BP 161/80
--- NOTE | 2019-06-11 07:58 | Cardiology Progress Note ---
Subjective Date Seen by Provider: Jun 11, 2019 Time Seen by Provider: 07:57 Subjective/Events-last exam Patient is laying down in bed, feeling well, mild shortness of breath. No chest pain Review of Systems General: No Chills, No Night Sweats, No Fatigue, No Malaise, No Appetite, No Other HEENT: No Head Aches, No Visual Changes, No Eye Pain, No Ear Pain, No Dysphas ia, No Sinus Congestion, No Post Nasal Drip, No Sore Throat, No Other Pulmonary: Dyspnea; No Cough, No Pleuritic Chest Pain, No Other Cardiovascular: No: Chest Pain, Palpitations, Orthopnea, Paroxysmal Noc. Dyspnea, Edema, Lt Headedness, Other Objective-Cardiology Exam Last Set of Vital Signs Vital Signs 06/11/19 07:46 Temp 36.1 Pulse 58 Resp 18 B/P (MAP) 161/80 (107) Pulse Ox 96 O2 Delivery Room Air Capillary Refill : I&O Intake and Output 06/11/19 00:00 Intake Total 250 ml Balance 250 ml Intake Oral 250 ml # Voids 1 Daily Weight Change No General: Alert, Oriented X3, Cooperative HEENT: Atraumatic, PERRLA Neck: Supple, No JVD, No Thyromegaly Lungs: Clear to Auscultation, Normal Air Movement Heart: Normal S1, Normal S2, Other (Irregular rhythm, systolic murmur at the left sternal border) Abdomen: Normal Bowel Sounds, Soft, No Tenderness, No Hepatosplenomegaly, No Masses Extremities: No Clubbing, No Cyanosis, No Edema, Normal Pulses, No Tenderness/Swelling Skin: No Rashes, No Breakdown, No Significant Lesion Neuro: Normal Gait, Normal Speech, Strength at 5/5 X4 Ext, Normal Tone, Sensation Intact Psych/Mental Status: Mental Status NL, Mood NL Results Lab Laboratory Tests 06/10/19 17:27 06/11/19 03:20 A/P-Cardiology Admission Diagnosis Acute atrial fibrillation Coronary artery disease Hypertension Hyperlipidemia Assessment/Plan Atrial fibrillation with controlled heart rate, no onset, patient has been on amiodarone which will be continued, continue with Coumadin and heparin and monitor INR Coronary artery disease status post CABG 3 done 3 weeks ago, recovering well. Continue to monitor Severe mitral regurgitation, status post mitral valve repair with a ring and a clip, doing well. Continue to monitor next Hypertension, restart home medication monitor next Hyperlipidemia, restart Lipitor 80 mg and monitor Diabetes mellitus, followed and managed by primary care physician Tobaccoism, stopped smoking after her bypass surgery. Clinical Quality Measures DVT/VTE Risk/Contraindication: Risk Factor Score Per Nursin RFS Level Per Nursing on Admit: 4+=Very High ERIN SANTIAGO MD Jun 11, 2019 07:58
[2019-06-11] MEDS: ASPIRIN E.C. 81 MG (ECOTRIN) TAB PO SCH (08:34)
[2019-06-11] MEDS: AMIODARONE 200 MG (CORDARONE) TAB PO SCH ×2 (08:34→21:10)
[2019-06-11] MEDS: ACETAMINOPHEN 325 MG TABLET PO PRN ×2 (08:40→21:17)
--- NOTE | 2019-06-11 09:12 | Diagnostic Imaging Report ---
INDICATION: Dyspnea. Time of exam: 8:47 AM Correlation is made with prior study from 05/02/2019. Changes of median sternotomy are noted. Heart size is stable. There appears to be some infiltrate or atelectasis in the left base. Otherwise, the lungs are clear. There is no effusion or pneumothorax. IMPRESSION: Mild left basilar infiltrate or atelectasis. Dictated by: Dictated on workstation # [id number]
[2019-06-11] MEDS ORDERED: FURO20TA4 PO (09:23)
[2019-06-11] MEDS ORDERED: POTA10CA43 PO (09:23)
[2019-06-11] MEDS ORDERED: AMIO400T5 PO (09:23)
[2019-06-11] MEDS ORDERED: TRM50T PO (09:23)
[2019-06-11] MEDS ORDERED: METF-397 PO (09:23)
[2019-06-11] MEDS ORDERED: FLUT1DIS26 IH (09:23)
[2019-06-11] MEDS ORDERED: NPH,100I5 SQ (09:23)
--- NOTE | 2019-06-11 09:32 | NUR ---
SPOKE WITH THE PATIENT ABOUT HER MEDICATIONS. SHE HAD A LIST FORM HER RECENT DISCHARGE FROM , WE WENT OVER THAT WELL THE EXT MED HX AND SHE WAS ABLE TO VERIFY HER RECENT MEDICATION CHANGES. SHE WAS PRESCRIBED OXYCODONE AND SENNA S AT DISCHARGE, SHE IS NOT TAKING EITHER OF THESE MEDICATIONS. SHE DOES NOT LIKE TO TAKE PAIN MEDICATION AND THEREFORE HAS NOT HAD ANY CONSTIPATION. SHE WAS STARTED ON METFORMIN AND HUMULIN N - THEREFORE SHE STOPPED THE GLIMEPIRIDE AND VICTOZA. SHE STATES SHE IS TO RESUME THE VICOTZA IN THE FUTURE WITH GUIDANCE FROM HER PCP AND AT THAT TIME REDUCE THE HUMULIN FROM 7 UNITS BID TO 3 UNITS BID BUT THAT HAS NOT HAPPENED YET. I REMOVED VICTOZA FROM THE MED REC AT THIS TIME. SHE STATES THE FOLLOWING MEDICATIONS HAVE BEEN STOPPED: 05-12-19 LISINOPRIL 20MG DAILY #90 (STOPPED) 05-12-19 IMDUR 30MG DAILY #60 (STOPPED) 05-09-19 VICTOZA (CURRENTLY STOPPED) 04-15-19 TRELEGY (CHANGED TO ADVAIR 250 BID, RECEIVES THROUGH 340B AT [facility]) 04-13-19 GLIMEPIRIDE 1MG #180 BID (STOPPED) 04-13-19 BRILINTA 90MG BID #180 (STOPPED) SHE ALSO STATES SHE HAS NITRO NEEDED AND DUONEB NEEDED. OTC MEDS: ASPIRIN 81MG DAILY VITAMIN D 1000 UNITS DAILY KRILL OIL DAILY MTV DAILY PRESERVISION DAILY HAIR SKIN AND NAILS DAILY
[2019-06-11] MEDS ORDERED: RT-ALBUTEROL SULF 2.5 MG/3 ML PRE-MIX VIAL INH PRN (11:45)
[2019-06-11] MEDS ORDERED: POLYETHYLENE GLYCOL 17 GM (MIRALAX) PACK PO PRN (11:45)
[2019-06-11] MEDS ORDERED: ONDANSETRON 4 MG (ZOFRAN) ORAL DISSOLVE TAB PO PRN (11:45)
[2019-06-11] MEDS ORDERED: RT-ALBUTEROL/IPRATROPIUM 3 ML (DUONEB) VIAL IH PRN (11:45)
[2019-06-11] MEDS ORDERED: diphenhydrAMINE 25 MG TAB (BENADRYL) PO PRN (11:45)
[2019-06-11] MEDS ORDERED: SENNA W/DOCUSATE (SENOKOT S) TABLET PO PRN (11:45)
[2019-06-11] MEDS ORDERED: MELATONIN 3 MG TABLET PO PRN (11:45)
--- NOTE | 2019-06-11 11:45 | History & Physical-Hospitalist ---
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 She reports that she had been there for a follow-up appointment from her recent bypass surgery and mitral valve ring. She denies any previous history of atrial fibrillation. She currently denies any fevers, chills, chest pain, palpitations, shortness of breath, cough, abdominal pain, nausea, vomiting, diarrhea, constipation, dysuria. Source: patient Exam Limitations: no limitations Date Seen 06/11/19 Time Seen by a Provider: 10:00 Attending Physician Aminah Segura MD PCP Kade Hagen MD Referring Physician Date of Admission Jun 10, 2019 at 16:33 Home Medications & Allergies Home Medications Reviewed patient Home Medication Reconciliation performed by pharmacy medication reconciliations control valve technician and/or nursing. Patients Allergies have been reviewed. Allergies Allergies Coded Allergies No Known Drug Allergies (Unverified01/01/19) Past Jisanrq-Uzvooa-Eefmmg Hx Past Med/Social Hx: Reviewed Nursing Past Med/Soc Hx Patient Social History Marrital Status: Employed/Student: employed Former Smoker, Quit: January 01, 2019 Type Used: Cigarettes 2nd Hand Smoke Exposure: No Recent Foreign Travel: No Contact w/other who traveled: No Recent Hopitalizations: Yes (VIA [employer] 01/17/19) Recent Infectious Disease Expo: No Immunizations Up To Date Pediatric: Yes Date of Pneumonia Vaccine: Jun 11, 2017 Date of Influenza Vaccine: Jun 08, 2019 Seasonal Allergies Seasonal Allergies: No Past Medical History Surgeries: Section, Coronary Stent, Hysterectomy Respiratory: Pneumonia, Sleep Apnea Currently Using CPAP: No Currently Using BIPAP: No Cardiac: Coronary Artery Disease, Heart Attack, Hypertension Sexually Transmitted Disease: No HIV/AIDS: No Hysterectomy Endocrine: Diabetes, Non-Insulin dep Cancer: Melanoma Did You Recieve Any Treatments: No What Type of Treatment Did You: Surgical Intervention History of Blood Disorders: No Adverse Reaction to Blood Pearson: No Family History Alcoholism 19 MOTHER Alzheimer's disease 19 FATHER Arthritis 19 FATHER Asthma 19 FATHER Cardiovascular disease 19 FATHER Cataracts 19 FATHER Diabetes mellitus Hypertension 19 FATHER 19 MOTHER Myocardial infarction 19 FATHER Osteoporosis 19 MOTHER Parkinson's disease 19 MOTHER Respiratory disorder 19 MOTHER No Family History of: Glaucoma Review of Systems Constitutional: no symptoms reported, see HPI Physical Exam Physical Exam Vital Signs Vital Signs - First Documented 06/10/19 16:33 Temp 36.9 Pulse 54 Resp 15 B/P (MAP) 149/75 (99) Pulse Ox 96 O2 Delivery Room Air Capillary Refill : Height, Weight, BMI Height: 6'0" Weight: 252lbs. 9.0oz. 114.910785rp; 33.83 BMI Method:Stated General Appearance: No Apparent Distress, WD/WN, Obese HEENT: PERRL/EOMI, Pharynx Normal Neck: Normal Inspection, Supple Respiratory: Lungs Clear, Normal Breath Sounds, No Respiratory Distress Cardiovascular: Regular Rate, Rhythm, No Edema, No Murmur Gastrointestinal: Normal Bowel Sounds, Non Tender, Soft Extremity: Normal Inspection, Non Tender, No Pedal Edema Neurologic/Psychiatric: Alert, Oriented x3, No Motor/Sensory Deficits, 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 Skin: Normal Color, Warm/Dry Lymphatic: No Adenopathy Results Results/Procedures Labs Laboratory Tests 06/10/19 17:27 06/11/19 03:20 Patient resulted labs reviewed. Assessment/Plan Admission Diagnosis paroxysmal atrial fibrillation Admission Status: Observation Reason for Inpatient Admission: new onset paroxysmal atrial fibrillation requiring anticoagulation and heparin bridge Assessment and Plan Paroxysmal atrial fibrillation Hypertension Coronary artery disease status post CABG Started on heparin GTT Received one dose of Coumadin 10 mg last night Decrease to Coumadin 5 mg daily Continue to monitor INR Continue amiodarone and metoprolol Cardiology following, appreciate assistance Type II diabetes mellitus Continue metformin Sliding scale insulin COPD without exacerbation continue home meds Hyperlipidemia Continue statin Seasonal allergies Continue loratadine DVT prophylaxis: Patient already receiving therapeutic anticoagulation Diagnosis/Problems Diagnosis/Problems (1) Paroxysmal atrial fibrillation Status: Acute (2) Hypertension Status: Chronic Qualifiers: Hypertension type: essential hypertension Qualified Codes: I10 - Essential (primary) hypertension (3) Hyperlipidemia Status: Chronic (4) COPD without exacerbation Status: Chronic (5) Seasonal allergies Status: Chronic (6) Obesity Status: Chronic Qualifiers: Obesity type: due to excess calories Obesity classification: adult class 1 (BMI 30 - 34.9) Serious obesity comorbidity presence: with serious comorbidity Body mass index: BMI 33.0-33.9 Qualified Codes: E66.09 - Other obesity due to excess calories; Z68.33 - Body mass index (bmi) 33.0-33.9, adult Clinical Quality Measures DVT/VTE Risk/Contraindication: Risk Factor Score Per Nursin RFS Level Per Nursing on Admit: 4+=Very High AMINAH SEGURA MD Jun 11, 2019 11:45
[2019-06-11 12:00] VITALS: BP 170/73
[2019-06-11] MEDS: inSUlin ASPART (NovoLOG) 1 UNIT/0.01 ML (CHARGE PER UNIT) SC SCH ×3 (13:27→21:12)
--- NOTE | 2019-06-11 13:52 | NUR ---
RD ASSESSMENT PMHx: CAD, CABGx3, DM, HTN, HLD PT INTERACTION: Pt was awake and pleasant during consult for MST score. Pt states current appetite as "so-so" and has been for the past three weeks. Pt states trying to follow a "low-sodium/low-fat kind of diet" at home, and currently has no issues with chewing/swallowing food at this time. Pt states no recent issues with n/v/c/d at this time, and last BM was 06/10. Pt states recent 3-4# wt loss x3w, attributing to poot appetite since her surgery. Note 2# wt loss x1mon, per chart review. Pt states current DM management is good and that her last HbA1c was 6.1% in Apr. Upon visual exam, pt appears to be well-nourished with BMI of 33.8. ABNORMAL NUTRITION-RELATED LAB VALUES: BUN 28 (H); cr 1.39 (H); glu 151 (H); Pro 6.1 (L) Est. kcal needs: 3544-1593 kcal (15-20 kcal/kg) Est. Pro needs: 113-125 g Pro (1.0-1.1 g Pro/kg) PES STATEMENT: Inadequate oral intake (NI-2.1) related to loss of appetite (x3w) as evidenced by pt interview INTERVENTION: Continue with current diet order of Heart Healthy diet. Encouraged pt to eat when able. MONITOR/EVALUATE: PO Intake; Plan of Care; Hydration Status; Weight Status; Lab Values Prem oMreira, MS, RD, LD Ext. 133
[2019-06-11] MEDS: HEParin DRIP 25000 UNIT/500ML 500 ML IV SCH (15:09)
[2019-06-11 16:00] VITALS: BP 172/85
[2019-06-11] MEDS: metFORMIN 500 MG (GLUCOPHAGE) TAB PO SCH (16:22)
[2019-06-11] MEDS ORDERED: warFARin 10 MG (COUMADIN) TAB PO SCH (18:00)
[2019-06-11] MEDS: warFARin 5 MG (COUMADIN) TAB PO SCH (19:02)
[2019-06-11 19:27] VITALS: BP 169/74
[2019-06-11] MEDS: RT-ADVAIR HFA 115/21 MCG PER PUFF IH SCH (19:40)
[2019-06-11] MEDS: busPIRone 15 MG (BUSPAR) TABLET PO SCH (21:09)
[2019-06-11] MEDS: MONTELUKAST 10 MG (SINGULAIR) TAB PO SCH (21:10)
[2019-06-11] MEDS: DOCUSATE SODIUM 100 MG (COLACE) CAP PO SCH (21:11)
[2019-06-12] VITALS: BP 150/74
[2019-06-12 03:57] LABS: INR 1.4 (0.8-1.4); PROTHROMBIN TIME PATIENT 17.3 SEC (12.2-14.7)
[2019-06-12 04:00] VITALS: BP 160/2
[2019-06-12 04:07] LABS: CALCIUM 8.8 MG/DL (8.5-10.1); CREATININE SERUM 0.94 MG/DL (0.60-1.30); POTASSIUM 4.4 MMOL/L (3.6-5.0)
[2019-06-12] MEDS: inSUlin ASPART (NovoLOG) 1 UNIT/0.01 ML (CHARGE PER UNIT) SC SCH ×4 (06:50→21:07)
[2019-06-12] MEDS: metFORMIN 500 MG (GLUCOPHAGE) TAB PO SCH ×2 (06:50→17:01)
[2019-06-12] MEDS: RT-ADVAIR HFA 115/21 MCG PER PUFF IH SCH ×2 (07:17→19:02)
--- NOTE | 2019-06-12 07:20 | Cardiology Progress Note ---
Subjective Date Seen by Provider: Jun 12, 2019 Time Seen by Provider: 07:19 Subjective/Events-last exam Patient is laying down in bed feeling better today. No chest pain was reported. Review of Systems General: No Chills, No Night Sweats, No Fatigue, No Malaise, No Appetite, No Other HEENT: No Head Aches, No Visual Changes, No Eye Pain, No Ear Pain, No Dysphasia, No Sinus Congestion, No Post Nasal Drip, No Sore Throat, No Other Pulmonary: No Dyspnea, No Cough, No Pleuritic Chest Pain, No Other Cardiovascular: No: Chest Pain, Palpitations, Orthopnea, Paroxysmal Noc. Dyspnea, Edema, Lt Headedness, Other Objective-Cardiology Exam Last Set of Vital Signs Vital Signs Capillary Refill : I&O Intake and Output 06/12/19 00:00 Intake Total 1730 ml Balance 1730 ml Intake Oral 1230 ml IV Total 500 ml # Voids 6 # Bowel Movements 1 General: Alert, Oriented X3, Cooperative HEENT: Atraumatic, PERRLA Neck: Supple, No JVD, No Thyromegaly Lungs: Clear to Auscultation, Normal Air Movement Heart: Normal S1, Normal S2, Other (Irregular rhythm, systolic murmur at the left sternal border) Abdomen: Normal Bowel Sounds, Soft, No Tenderness, No Hepatosplenomegaly, No Masses Extremities: No Clubbing, No Cyanosis, No Edema, Normal Pulses, No Tenderness/Swelling Skin: No Rashes, No Breakdown, No Significant Lesion Neuro: Normal Gait, Normal Speech, Strength at 5/5 X4 Ext, Normal Tone, Sensation Intact Psych/Mental Status: Mental Status NL, Mood NL Results Lab Laboratory Tests 06/12/19 03:10 A/P-Cardiology Admission Diagnosis Acute atrial fibrillation Coronary artery disease Hypertension Hyperlipidemia Assessment/Plan Atrial fibrillation with controlled heart rate, new onset, patient has been on amiodarone which will be continued, continue with Coumadin and heparin and monitor INR, will consider DAKSHA and cardioversion after reaching a therapeutic level of INR if she did not convert on her own Coronary artery disease status post CABG 3 done 3 weeks ago, recovering well. Continue to monitor Severe mitral regurgitation, status post mitral valve repair with a ring and a clip, doing well. Continue to monitor next Hypertension, continue current medication monitor blood pressure Hyperlipidemia, continue on Lipitor 80 mg and continue to monitor as an outpatient Diabetes mellitus, followed and managed by primary care physician Larry, stopped smoking after her bypass surgery. Clinical Quality Measures DVT/VTE Risk/Contraindication: Risk Factor Score Per Nursin RFS Level Per Nursing on Admit: 4+=Very High ERIN SANTIAGO MD Jun 12, 2019 07:20
[2019-06-12 08:30] VITALS: BP 160/70
[2019-06-12] MEDS: busPIRone 15 MG (BUSPAR) TABLET PO SCH ×2 (08:54→21:10)
[2019-06-12] MEDS: PANTOPRAZOLE 40 MG (PROTONIX) TAB PO SCH (08:54)
[2019-06-12] MEDS: LORATADINE (CLARITIN) 10 MG TAB PO SCH (08:54)
[2019-06-12] MEDS: DOCUSATE SODIUM 100 MG (COLACE) CAP PO SCH ×2 (08:55→21:11)
[2019-06-12] MEDS: ASPIRIN E.C. 81 MG (ECOTRIN) TAB PO SCH (08:55)
[2019-06-12] MEDS: AMIODARONE 200 MG (CORDARONE) TAB PO SCH ×2 (08:55→21:10)
[2019-06-12] MEDS: ACETAMINOPHEN 325 MG TABLET PO PRN ×2 (09:53→21:12)
--- NOTE | 2019-06-12 09:54 | Progress Note - Hospitalist ---
Subjective HPI/CC On Admission Date Seen by Provider: Jun 12, 2019 Time Seen by Provider: 09:30 new onset atrial fibrillation Subjective/Events-last exam She has no complaints or concerns this morning. She is watching television. She had breakfast without any issues. She denies any abdominal pain, nausea, vo miting, or diarrhea. She denies any chest pain or palpitations. She denies any shortness of breath. She denies any bleeding issues. Objective Exam Vital Signs Vital Signs Date Time Temp Pulse Resp B/P (MAP) Pulse Ox O2 Delivery O2 Flow Rate FiO2 06/12/19 08:30 35.8 55 20 160/70 (100) 95 06/12/19 07:17 Room Air Capillary Refill : General Appearance: No Apparent Distress, WD/WN, Obese Neck: Normal Inspection, Supple Respiratory: Lungs Clear, Normal Breath Sounds, No Respiratory Distress Cardiovascular: Regular Rate, Rhythm, No Edema, No Murmur Gastrointestinal: Normal Bowel Sounds, Non Tender, Soft Extremity: Normal Inspection, Non Tender, No Pedal Edema Neurologic/Psychiatric: Alert, Oriented x3, No Motor/Sensory Deficits, 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 Skin: Normal Color, Warm/Dry Lymphatic: No Adenopathy Results/Procedures Lab Laboratory Tests 06/12/19 03:10 Patient resulted labs reviewed. Assessment/Plan Assessment and Plan Assess & Plan/Chief Complaint Paroxysmal atrial fibrillation Hypertension Coronary artery disease status post CABG continue heparin GTT continue Coumadin Continue to monitor INR daily Continue amiodarone and metoprolol Cardiology following, appreciate assistance Type II diabetes mellitus Continue metformin Sliding scale insulin COPD without exacerbation continue home meds Hyperlipidemia Continue statin Seasonal allergies Continue loratadine DVT prophylaxis: Patient already receiving therapeutic anticoagulation Diagnosis/Problems Diagnosis/Problems (1) Paroxysmal atrial fibrillation Status: Acute (2) Hypertension Status: Chronic Qualifiers: Hypertension type: essential hypertension Qualified Codes: I10 - Essential (primary) hypertension (3) Hyperlipidemia Status: Chronic (4) COPD without exacerbation Status: Chronic (5) Seasonal allergies Status: Chronic (6) Obesity Status: Chronic Qualifiers: Obesity type: due to excess calories Obesity classification: adult class 1 (BMI 30 - 34.9) Serious obesity comorbidity presence: with serious comorbidity Body mass index: BMI 33.0-33.9 Qualified Codes: E66.09 - Other obesity due to excess calories; Z68.33 - Body mass index (bmi) 33.0-33.9, adult Clinical Quality Measures DVT/VTE Risk/Contraindication: Risk Factor Score Per Nursin RFS Level Per Nursing on Admit: 4+=Very High AMINAH SEGURA MD Jun 12, 2019 09:54
[2019-06-12] MEDS: MAGNESIUM 1 GM/100 ML IVPB 100 ML IV SCH (10:34)
[2019-06-12 12:00] VITALS: BP 114/68
--- NOTE | 2019-06-12 13:32 | NUR ---
Initial visit: Pt is [facility]. Her , Mil, was present this visit. They live in [place], and describe supportive family and community.
[2019-06-12] MEDS: HEParin DRIP 25000 UNIT/500ML 500 ML IV SCH (15:04)
[2019-06-12 16:00] VITALS: BP 121/56
[2019-06-12] MEDS: warFARin 5 MG (COUMADIN) TAB PO SCH (17:01)
[2019-06-12 20:00] VITALS: BP 158/76
[2019-06-12] MEDS: MONTELUKAST 10 MG (SINGULAIR) TAB PO SCH (21:10)
[2019-06-13] VITALS: BP 167/70
[2019-06-13 04:14] VITALS: BP 136/73
[2019-06-13 04:18] LABS: HEMOGLOBIN 9.2 G/DL (11.5-16.0); MEAN PLATELET VOLUME 9.6 FL (7.4-10.4); WHITE BLOOD COUNT 9.2 10^3/uL (4.3-11.0)
[2019-06-13 04:23] LABS: INR 1.6 (0.8-1.4); PROTHROMBIN TIME PATIENT 19.5 SEC (12.2-14.7)
[2019-06-13 04:34] LABS: ALBUMIN 3.6 GM/DL (3.2-4.5); BILIRUBIN,TOTAL 0.5 MG/DL (0.1-1.0); CREATININE SERUM 0.99 MG/DL (0.60-1.30); POTASSIUM 4.8 MMOL/L (3.6-5.0)
[2019-06-13] MEDS: inSUlin ASPART (NovoLOG) 1 UNIT/0.01 ML (CHARGE PER UNIT) SC SCH ×4 (06:16→21:45)
[2019-06-13] MEDS: PANTOPRAZOLE 40 MG (PROTONIX) TAB PO SCH (06:51)
[2019-06-13] MEDS: metFORMIN 500 MG (GLUCOPHAGE) TAB PO SCH ×2 (06:52→18:11)
[2019-06-13 08:00] VITALS: BP 183/70
[2019-06-13] MEDS: DOCUSATE SODIUM 100 MG (COLACE) CAP PO SCH ×2 (09:00→22:36)
[2019-06-13] MEDS: busPIRone 15 MG (BUSPAR) TABLET PO SCH ×2 (09:14→20:23)
[2019-06-13] MEDS: AMIODARONE 200 MG (CORDARONE) TAB PO SCH ×2 (09:14→20:23)
[2019-06-13] MEDS: LORATADINE (CLARITIN) 10 MG TAB PO SCH (09:14)
[2019-06-13] MEDS: ASPIRIN E.C. 81 MG (ECOTRIN) TAB PO SCH (09:14)
[2019-06-13] MEDS: RT-ADVAIR HFA 115/21 MCG PER PUFF IH SCH ×2 (09:39→21:14)
[2019-06-13 12:00] VITALS: BP 171/63
--- NOTE | 2019-06-13 13:35 | Progress Note - Cardiology ---
Cardiology SOAP Progress Note Subjective: Feels well No cp or palp or syncope or shortness of breath Wishes to come off of iv heparin (pole limits activity) Objective: I&O/Vital Signs 06/13/19 06/13/19 06/13/19 06/13/19 04:13 04:14 07:00 08:00 Temp 36.6 Pulse 52 56 Resp 18 B/P (MAP) 136/73 (94) Pulse Ox 94 O2 Delivery Room Air Room Air Room Air 06/13/19 06/13/19 06/13/19 06/13/19 08:00 09:00 09:39 11:25 Temp 36.7 Pulse 56 Resp 18 B/P (MAP) 183/70 (107) Pulse Ox 95 95 O2 Delivery Room Air Room Air Room Air Room Air 06/13/19 00:00 Intake Total 860 ml Balance 860 ml Weight (Pounds): 252 Weight (Ounces): 9.0 Weight (Calculated Kilograms): 114.338736 Constitutional: AAO x 3, well-developed, well-nourished Respiratory: No accessory muscle use; other (good bilat air enty) Cardiovascular: regular rate-rhythm, S1 and S2, systolic murmur (faint PRIYANK at card base) Gastrointestional: No tender; soft; No guarding, No rebound; audible bowel sounds Extremities: No clubbing, No cyanosis, No significant edema Neurologic/Psychiatric: oriented x 3, grossly intact, power is 5/5 both on sides Skin: No rash on exposed areas, No ulcerations on exposed areas Results/Procedures: Labs Laboratory Tests 06/12/19 16:10: Activated Partial Thromboplast Time 72H 06/12/19 20:50: Glucometer 187H 06/12/19 22:30: Activated Partial Thromboplast Time 79H 06/13/19 03:44: White Blood Count 9.2, Red Blood Count 3.22L, Hemoglobin 9.2L, Hematocrit 31L, M danny Corpuscular Volume 96, Mean Corpuscular Hemoglobin 29, Mean Corpuscular Hemoglobin Concent 30L, Red Cell Distribution Width 18.0H, Platelet Count 396, Mean Platelet Volume 9.6, Prothrombin Time 19.5H, INR Comment 1.6H, Sodium Level 138, Potassium Level 4.8, Chloride Level 104, Carbon Dioxide Level 23, Anion Gap 11, Blood Urea Nitrogen 13, Creatinine 0.99, Estimat Glomerular Filtration Rate 56, BUN/Creatinine Ratio 13, Glucose Level 117H, Calcium Level 9.0, Corrected Calcium 9.3, Total Bilirubin 0.5, Aspartate Amino Transf (AST/SGOT) 16, Alanine Aminotransferase (ALT/SGPT) 31, Alkaline Phosphatase 143H, Total Protein 6.0L, Albumin 3.6 06/13/19 11:15: Glucometer 178H Laboratory Tests 06/12/19 03:10 06/13/19 03:44 A/P: Assessment: PAF, currently NSR Coronary artery disease status post CABG 3 and MV Repair at [facility] in late Apr 2019 Hypertension Hyperlipidemia DM II Tobaccoism, stopped smoking after her bypass surgery. Plan: * I reviewed spoke with her, examined her, reviewed her records, and discussed her case with Dr Fine * Will change iv heparin to treatment-márquez enoxaparin, per pt request * INR not therapeutic, but rising. Likely to be therapeutic at next reading. Continue to monitor SHYANN YOST MD FACP FAC CCDS Jun 13, 2019 13:35
[2019-06-13] MEDS: HEParin DRIP 25000 UNIT/500ML 500 ML IV SCH (15:11)
--- NOTE | 2019-06-13 15:29 | Progress Note - Hospitalist ---
Subjective HPI/CC On Admission Date Seen by Provider: Jun 13, 2019 Time Seen by Provider: 08:30 new onset atrial fibrillation Subjective/Events-last exam She has no complaints or concerns. She denies any bleeding. She denies fevers, chest pain, shortness of breath, abdominal pain, nausea, vomiting, and diarrhea. Objective Exam Vital Signs Vital Signs Date Time Temp Pulse Resp B/P (MAP) Pulse Ox O2 Delivery O2 Flow Rate FiO2 06/13/19 15:17 Room Air 06/13/19 13:00 60 06/13/19 12:00 36.4 18 171/63 (99) 96 Capillary Refill : General Appearance: No Apparent Distress, WD/WN HEENT: PERRL/EOMI, Pharynx Normal Neck: Normal Inspection, Supple Respiratory: Lungs Clear, Normal Breath Sounds, No Respiratory Distress Cardiovascular: Regular Rate, Rhythm, No Edema, No Murmur, Other (sternal incision clean, dry and intact) Gastrointestinal: Normal Bowel Sounds, Non Tender, Soft Extremity: Normal Inspection, Non Tender, No Pedal Edema Neurologic/Psychiatric: Alert, Oriented x3, 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 Skin: Normal Color, Warm/Dry Results/Procedures Lab Laboratory Tests 06/13/19 03:44 Patient resulted labs reviewed. Assessment/Plan Assessment and Plan Assess & Plan/Chief Complaint Paroxysmal atrial fibrillation Hypertension Coronary artery disease status post CABG continue heparin GTT continue Coumadin Continue to monitor INR daily Continue amiodarone and metoprolol Cardiology following, appreciate assistance Type II diabetes mellitus Continue metformin Sliding scale insulin COPD without exacerbation continue home meds Hyperlipidemia Continue statin Seasonal allergies Continue loratadine DVT prophylaxis: Patient already receiving therapeutic anticoagulation Diagnosis/Problems Diagnosis/Problems (1) Paroxysmal atrial fibrillation Status: Acute (2) Hypertension Status: Chronic Qualifiers: Hypertension type: essential hypertension Qualified Codes: I10 - Essential (primary) hypertension (3) Hyperlipidemia Status: Chronic (4) COPD without exacerbation Status: Chronic (5) Seasonal allergies Status: Chronic (6) Obesity Status: Chronic Qualifiers: Obesity type: due to excess calories Obesity classification: adult class 1 (BMI 30 - 34.9) Serious obesity comorbidity presence: with serious comorbidity Body mass index: BMI 33.0-33.9 Qualified Codes: E66.09 - Other obesity due to excess calories; Z68.33 - Body mass index (bmi) 33.0-33.9, adult Clinical Quality Measures DVT/VTE Risk/Contraindication: Risk Factor Score Per Nursin RFS Level Per Nursing on Admit: 4+=Very High AMINAH SEGURA MD Jun 13, 2019 15:29
[2019-06-13 16:00] VITALS: BP 123/74
[2019-06-13] MEDS: warFARin 5 MG (COUMADIN) TAB PO SCH (18:11)
[2019-06-13 20:21] VITALS: BP 153/63
[2019-06-13] MEDS: MONTELUKAST 10 MG (SINGULAIR) TAB PO SCH (20:23)
[2019-06-13] MEDS: ENOXAPARIN 300 MG/3 ML (LOVENOX) MULTI-DOSE VIAL SQ SCH (20:24)
[2019-06-13] MEDS: ACETAMINOPHEN 325 MG TABLET PO PRN (20:26)
[2019-06-14 00:55] VITALS: BP 143/74
[2019-06-14 04:34] VITALS: BP 147/74
[2019-06-14 04:53] LABS: INR 1.7 (0.8-1.4); PROTHROMBIN TIME PATIENT 20.9 SEC (12.2-14.7)
[2019-06-14] MEDS: RT-ADVAIR HFA 115/21 MCG PER PUFF IH SCH (06:53)
[2019-06-14] MEDS: inSUlin ASPART (NovoLOG) 1 UNIT/0.01 ML (CHARGE PER UNIT) SC SCH ×2 (06:57→12:06)
[2019-06-14] MEDS: PANTOPRAZOLE 40 MG (PROTONIX) TAB PO SCH (06:57)
[2019-06-14] MEDS: metFORMIN 500 MG (GLUCOPHAGE) TAB PO SCH (06:57)
--- NOTE | 2019-06-14 07:07 | Progress Note - Hospitalist ---
Subjective HPI/CC On Admission Date Seen by Provider: Jun 14, 2019 new onset atrial fibrillation Objective Exam Vital Signs Capillary Refill : Results/Procedures Lab Patient resulted labs reviewed. Assessment/Plan Assessment and Plan Assess & Plan/Chief Complaint Paroxysmal atrial fibrillation Hypertension Coronary artery disease status post CABG continue heparin GTT continue Coumadin Continue to monitor INR daily Continue amiodarone and metoprolol Cardiology following, appreciate assistance Type II diabetes mellitus Continue metformin Sliding scale insulin COPD without exacerbation continue home meds Hyperlipidemia Continue statin Seasonal allergies Continue loratadine DVT prophylaxis: Patient already receiving therapeutic anticoagulation Diagnosis/Problems Diagnosis/Problems (1) Paroxysmal atrial fibrillation Status: Acute (2) Hypertension Status: Chronic Qualifiers: Hypertension type: essential hypertension Qualified Codes: I10 - Essential (primary) hypertension (3) Hyperlipidemia Status: Chronic (4) COPD without exacerbation Status: Chronic (5) Seasonal allergies Status: Chronic (6) Obesity Status: Chronic Qualifiers: Obesity type: due to excess calories Obesity classification: adult class 1 (BMI 30 - 34.9) Serious obesity comorbidity presence: with serious comorbidity Body mass index: BMI 33.0-33.9 Qualified Codes: E66.09 - Other obesity due to excess calories; Z68.33 - Body mass index (bmi) 33.0-33.9, adult Clinical Quality Measures DVT/VTE Risk/Contraindication: Risk Factor Score Per Nursin RFS Level Per Nursing on Admit: 4+=Very High AMINAH SEGURA MD Jun 14, 2019 07:07 POS
[2019-06-14] MEDS: DOCUSATE SODIUM 100 MG (COLACE) CAP PO SCH (07:17)
[2019-06-14 08:00] VITALS: BP 167/70
[2019-06-14] MEDS: ASPIRIN E.C. 81 MG (ECOTRIN) TAB PO SCH (09:21)
[2019-06-14] MEDS: busPIRone 15 MG (BUSPAR) TABLET PO SCH (09:21)
[2019-06-14] MEDS: AMIODARONE 200 MG (CORDARONE) TAB PO SCH (09:21)
[2019-06-14] MEDS: ENOXAPARIN 300 MG/3 ML (LOVENOX) MULTI-DOSE VIAL SQ SCH (09:21)
[2019-06-14] MEDS: LORATADINE (CLARITIN) 10 MG TAB PO SCH (09:21)
[2019-06-14 12:00] VITALS: BP 156/78
[2019-06-14] MEDS ORDERED: WARF5TAB PO (14:03)
[2019-06-14] MEDS ORDERED: ENOX120D SQ (14:03)
--- NOTE | 2019-06-14 14:12 | Discharge Summary ---
Discharge Summary Hospital Course Problems/Dx: (1) Paroxysmal atrial fibrillation Status: Acute (2) Hypertension Status: Chronic Qualifiers: Qualified Codes: I10 - Essential (primary) hypertension (3) Hyperlipidemia Status: Chronic (4) COPD without exacerbation Status: Chronic (5) Seasonal allergies Status: Chronic (6) Obesity Status: Chronic Qualifiers: Qualified Codes: E66.09 - Other obesity due to excess calories; Z68.33 - Body mass index (bmi) 33.0-33.9, adult Hospital Course Date of Admission: Jun 11, 2019 at 14:34 Admission Diagnosis : Paroxysmal atrial fibrillation Family Physician/Provider: Kade Hagen MD Date of Discharge: 06/14/19 Discharge Diagnosis: Paroxysmal atrial fibrillation Hospital Course: Lisseth Payne is a 64-year-old female with past medical history of hypertension, hyperlipidemia, COPD, mitral stenosis status post mitral valve ring, coronary artery disease status post 3 vessel CABG, 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 She was started on IV heparin initially and started on Coumadin. Her INR increased to 1.7. She was transitioned to subcutaneous Lovenox from the IV heparin . She will continue the Lovenox as an outpatient until her INR is therapeutic between 2 and 3. She will be taking Coumadin 5 mg daily. She will follow up with Dr. Em's office. Labs and Pending Lab Test: Laboratory Tests 06/13/19 16:49: Glucometer 175H 06/13/19 21:45: Glucometer 174H 06/13/19 22:10: Activated Partial Thromboplast Time 63H 06/14/19 04:15: Platelet Count 372, Prothrombin Time 20.9H, INR Comment 1.7H Home Meds Active Lovenox (Enoxaparin Sodium) 120 Mg/0.8 Ml Syringe 120 Mg SQ BID 3 Days Coumadin (Warfarin Sodium) 5 Mg Tablet 5 Mg PO DAILY@1800 30 Days Reported Advair 250-50 Diskus (Fluticasone/Salmeterol) 1 Each Blst.w.dev 1 Puff IH BID Furosemide 20 Mg Tablet 20 Mg PO DAILY Humulin N Kwikpen (Insulin NPH Human Isophane) 100 Unit/1 Ml Insuln.pen 7 Unit SQ BID Amiodarone HCl 400 Mg Tablet 400 Mg PO DAILY 21 Days FILLED 10-7-19 TO TAKE TWICE DAILY X 1 WEEK, THEN 1 DAILY FOR 3 WEEKS THEN DISCONTINUE Metformin HCl 500 Mg Tablet 1,000 Mg PO BID TAKES 2 (500MG) TABLETS Tramadol HCl 50 Mg Tablet 50-100 Mg PO Q6H PRN Nitroglycerin 0.4 Mg Tab.subl 0.4 Mg SL UD PRN Potassium Chloride 10 Meq Tablet.er 10 Meq PO DAILY Nxgn-Xoat-Tatss Gummies (Vitamin C/Biotin) 1 Each Tab.chew 1 Tab.chew PO DAILY Preservision Areds Tablet (Vit A/Vit C/Vit E/Zinc/Copper) 1 Each Tablet 1 Tab PO DAILY Atorvastatin Calcium 80 Mg Tablet 80 Mg PO HS Ventolin Hfa (Albuterol Sulfate) 18 Gm Hfa.aer.ad 2 Puff INH Q4H PRN Metoprolol Tartrate 25 Mg Tablet 25 Mg PO BID Iprat-Albut 0.5-3(2.5) mg/3 ml (Ipratropium/Albuterol Sulfate) 3 Ml Ampul.neb 3 Ml NEB QID PRN Montelukast Sodium 10 Mg Tablet 10 Mg PO HS Loratadine 10 Mg Tablet 10 Mg PO DAILY Aspirin EC (Aspirin) 81 Mg Tablet. 81 Mg PO DAILY Buspirone HCl 7.5 Mg Tablet 7.5 Mg PO BID Vitamin D3 (Cholecalciferol (Vitamin D3)) 1,000 Unit Capsule 1,000 Unit PO DAILY Krill Oil 1,000 mg Softgel (Krill/Om-3/Dha/Epa/Phospho/Ast) 1 Each Capsule 1,000 Mg PO DAILY Multivitamins (Multivitamin) 1 Each Tablet 1 Tab PO DAILY Pantoprazole Sodium 40 Mg Tablet. 40 Mg PO DAILY Citalopram HBr (Citalopram Hydrobromide) 40 Mg Tablet 40 Mg PO DAILY Assessment/Pt Instructions Take medications as prescribed. Take Lovenox injections and coumadin until your INR is in the therapeutic range between 2-3. You will need to have labs drawn daily to check your INR. Call Dr. Em's office tomorrow to discuss the plan and let them know your INR level. Discharge Planning: <30 minutes discharge planning Discharge Instructions Discharge Diet: Low Sodium Diet Activity as Tolerated: Yes Discharge Physical Examination Vital Signs Vital Signs Date Time Temp Pulse Resp B/P (MAP) Pulse Ox O2 Delivery O2 Flow Rate FiO2 06/14/19 13:00 56 10/20/19 12:00 36.6 16 156/78 (104) 94 Room Air General Appearance: No Apparent Distress, WD/WN, Obese Respiratory: Lungs Clear, Normal Breath Sounds, No Respiratory Distress Cardiovascular: Regular Rate, Rhythm, No Edema, No Murmur Gastrointestinal: Normal Bowel Sounds, Non Tender, Soft Extremity: Normal Inspection, Non Tender, No Pedal Edema Skin: Normal Color Neurologic/Psychiatric: Alert, Oriented x3, No Motor/Sensory Deficits, 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 Allergies: Coded Allergies: No Known Drug Allergies (Unverified , 01/01/19) Copy Copies To 1: ERIN EM MD Discharge Summary Date of Admission Jun 11, 2019 at 14:34 Date of Discharge Discharge Date: Jun 14, 2019 Discharge Time: 14:09 Admission Diagnosis paroxysmal atrial fibrillation Consults/Procedures Consulations Cardiology Discharge Diagnosis Paroxysmal atrial fibrillation (1) Paroxysmal atrial fibrillation Status: Acute (2) Hypertension Status: Chronic Qualifiers: Qualified Codes: I10 - Essential (primary) hypertension (3) Hyperlipidemia Status: Chronic (4) COPD without exacerbation Status: Chronic (5) Seasonal allergies Status: Chronic (6) Obesity Status: Chronic Qualifiers: Qualified Codes: E66.09 - Other obesity due to excess calories; Z68.33 - Body mass index (bmi) 33.0-33.9, adult Clinical Quality Measures DVT/VTE Risk/Contraindication: Risk Factor Score Per Nursin RFS Level Per Nursing on Admit: 4+=Very High AMINAH SEGURA MD Jun 14, 2019 14:11
--- NOTE | 2019-06-14 14:25 | Progress Note - Cardiology ---
Cardiology SOAP Progress Note Subjective: No cp, palp, shortness of breath, syncope Insists on going home States can self-administer Lovenox (has done that in the past) Objective: I&O/Vital Signs 06/14/19 06/14/19 06/14/19 06/14/19 04:00 04:34 06:55 07:00 Temp 36.2 Pulse 49 50 Resp 18 B/P (MAP) 147/74 (98) Pulse Ox 93 95 O2 Delivery Room Air Room Air Room Air 06/14/19 06/14/19 06/14/19 06/14/19 08:00 08:00 09:00 11:34 Temp 36.7 Pulse 62 Resp 16 B/P (MAP) 167/70 (102) Pulse Ox 94 O2 Delivery Room Air Room Air Room Air Room Air 06/14/19 06/14/19 12:00 13:00 Temp 36.6 Pulse 50 56 Resp 16 B/P (MAP) 156/78 (104) Pulse Ox 94 O2 Delivery Room Air 06/14/19 00:00 Intake Total 1625 ml Balance 1625 ml Weight (Pounds): 252 Weight (Ounces): 9.0 Weight (Calculated Kilograms): 114.872481 Constitutional: AAO x 3, well-developed, well-nourished Respiratory: No accessory muscle use; other (good bilat air enty) Cardiovascular: regular rate-rhythm, S1 and S2, systolic murmur (faint PRIYANK at card base) Gastrointestional: No tender; soft; No guarding, No rebound; audible bowel sounds Extremities: No clubbing, No cyanosis, No significant edema Neurologic/Psychiatric: oriented x 3, grossly intact, power is 5/5 both on sides Skin: No rash on exposed areas, No ulcerations on exposed areas Results/Procedures: Labs Laboratory Tests 06/13/19 16:49: Glucometer 175H 06/13/19 21:45: Glucometer 174H 06/13/19 22:10: Activated Partial Thromboplast Time 63H 06/14/19 04:15: Platelet Count 372, Prothrombin Time 20.9H, INR Comment 1.7H Laboratory Tests 06/13/19 03:44 06/14/19 04:15 A/P: Assessment: PAF INR rising, but not therapeutic Coronary artery disease status post CABG 3 and MV Repair at [facility] in late Apr 2019 Hypertension Hyperlipidemia DM II Tobaccoism, stopped smoking after her bypass surgery. Plan: * She insists on going home. States will self-administer Lovenox sc for as long as is needed * We advised continuing therapeutic-dose Lovenox along with continuing oral warfarin until INR therapeutic. Then stop Lovenox and continue warfaring * Advised INR tomorrow and to call Dr Em for instructions regarding Lovenox * She understands all of the above and states she will comply SHYANN YOST MD FACP FACC CCDS Jun 14, 2019 14:25
== END 2019-06-14 15:20 | disposition home or self-care (01) | DRG 310 ==
LOC: UNDOADMOB 16:33 → CSD 16:33 → OBSVTOIN 06-11 14:34 → INTOOBSV 06-11 14:34 → UNDODISIN 06-14 15:20
PROVIDERS: ADMIT Internal Medicine; ATTEND Internal Medicine Cardiovascular Disease
DX: I48.0 Paroxysmal atrial fibrillation (principal); I10 Essential (primary) hypertension; I25.10 Atherosclerotic heart disease of native coronary artery without angina pectoris; E78.5 Hyperlipidemia, unspecified; E11.9 Type 2 diabetes mellitus without complications; I25.2 Old myocardial infarction; G47.30 Sleep apnea, unspecified; J44.9 Chronic obstructive pulmonary disease, unspecified; J30.2 Other seasonal allergic rhinitis; I34.0 Nonrheumatic mitral (valve) insufficiency; E66.09 Other obesity due to excess calories; Z98.890 Other specified postprocedural states; Z95.1 Presence of aortocoronary bypass graft; Z95.5 Presence of coronary angioplasty implant and graft; Z87.891 Personal history of nicotine dependence; Z85.820 Personal history of malignant melanoma of skin; Z68.35 Body mass index [BMI] 35.0-35.9, adult; Z79.4 Long term (current) use of insulin
CPT/HCPCS: 36415; 71045; 80048; 80053; 82962; 83735; 83880; 84443; 85027; 85049; 85610; 85730; 93005; 94640; 94664; 94760

== ENCOUNTER → 2019-06-15 | Outpatient (CLI) | payer MEDICARE, OTHER ==
[~2019-06-15] MED LIST changes: +AMIO400T5 PO; +ENOX120D SQ; +FLUT1DIS26 IH; +GLIM1TAB PO; -GLIM1TAB2 PO; +GLIM4TAB PO; -GLIM4TAB3 PO; +METF-397 PO; +NPH,100I5 SQ; +TRAM50TA2 PO; +WARF5TAB PO
[2019-06-15 09:54] LABS: INR 2.1 (0.8-1.4); PROTHROMBIN TIME PATIENT 24.3 SEC (12.2-14.7)
== END ==
LOC: LAB FS 08:59
PROVIDERS: ATTEND Internal Medicine
DX: I48.0 Paroxysmal atrial fibrillation (principal)
CPT/HCPCS: 36415; 85610

== ENCOUNTER → 2019-06-30 | Outpatient (CLI) | payer MEDICARE, OTHER ==
[2019-06-30 14:00] LABS: BACTERIA,URINE FEW /HPF; BILIRUBIN,URINE NEGATIVE (NEGATIVE); CLARITY,URINE CLOUDY; COLOR,URINE YELLOW; GLUCOSE, URINE (UA) NEGATIVE (NEGATIVE); KETONES,URINE NEGATIVE (NEGATIVE); LEUKOCYTE ESTERASE ,URINE 2+ (NEGATIVE); NITRITE,URINE NEGATIVE (NEGATIVE); PROTEIN,URINE 2+ (NEGATIVE); RBC,URINE >100 /HPF; WBC,URINE >100 /HPF
== END ==
LOC: LAB FS 13:26
PROVIDERS: ATTEND Pediatrics
DX: R30.0 Dysuria (principal)
CPT/HCPCS: 81000; 87077; 87088; 87186

== ENCOUNTER 2019-07-02 14:25 | Outpatient (RCR) | payer MEDICARE, OTHER ==
[2019-06-16 14:35] LABS: INR 2.8 (0.8-1.4); PROTHROMBIN TIME PATIENT 30.9 SEC (12.2-14.7)
[2019-06-19 09:10] LABS: PROTHROMBIN TIME PATIENT 40.5 SEC (12.2-14.7)
[2019-06-24 13:04] LABS: INR 3.2 (0.8-1.4)
[~2019-07-02 14:25] MED LIST changes: -GLIM1TAB PO; +GLIM1TAB2 PO; -GLIM4TAB PO; +GLIM4TAB3 PO; -TRAM50TA2 PO; +TRM50T PO
[2019-07-02 15:34] LABS: INR 3.7 (0.8-1.4); PROTHROMBIN TIME PATIENT 38.5 SEC (12.2-14.7)
[2019-08-25] MEDS ORDERED: TRM50T PO (09:58)
== END 2019-09-14 | disposition home or self-care (01) ==
LOC: LAB FS 14:25
PROVIDERS: ATTEND Internal Medicine Cardiovascular Disease
DX: Z51.81 Encounter for therapeutic drug level monitoring (principal); I48.0 Paroxysmal atrial fibrillation; Z79.01 Long term (current) use of anticoagulants
CPT/HCPCS: 36415; 85610

== ENCOUNTER 2019-08-25 08:40 | Emergency (ER) | payer MEDICARE, OTHER ==
[~2019-08-25] VITALS: Ht 182 cm; Wt 107.3 kg
[~2019-08-25 08:40] MED LIST changes: +GLIM1TAB PO; -GLIM1TAB2 PO; +GLIM4TAB PO; -GLIM4TAB3 PO; +TRAM50TA2 PO; -TRM50T PO
[2019-08-25] MEDS ORDERED: TETANUS,DIPTH,PERTUSS P/F (BOOSTRIX) 0.5 ML VIAL IM ONE (09:00)
--- NOTE | 2019-08-25 09:03 | ED Upper Extremity ---
General Chief Complaint: Upper Extremity Stated Complaint: LEWIS SHOULDER INJ Source: patient Exam Limitations: no limitations History of Present Illness Date Seen by Provider: Aug 25, 2019 Time Seen by Provider: 08:52 Initial Comments The patient is a pleasant 64-year-old female who presents for evaluation of bilateral upper arm pain. She states that she was walking a dog and tripped and fell putting her arms out. She has some bruising and swelling to the left mid humeral region and states she cannot move the arm. She has less pain in a similar region and the right mid upper arm. She is a skin tear to the right elbow. She is not up-to-date with her tetanus immunization status of this will be updated today. She did not hit her head or lose consciousness and has no neck pain, shortness of breath, back pain, abdominal pain, vision changes, focal weakness or numbness. She is alert and oriented 4, calm, and appears to be in no distress this time. Onset: just prior to arrival Severity: moderate Pain/Injury Location: bilateral arm Method of Injury: fell Modifying Factors: Improves With Movement (makes it worse) Allergies and Home Medications Allergies Coded Allergies: No Known Drug Allergies (Unverified , 01/01/19) Home Medications Albuterol Sulfate 18 Gm Hfa.aer.ad, 2 PUFF INH Q4H PRN for SHORTNESS OF BREATH, (Reported) Amiodarone HCl 400 Mg Tablet, 400 MG PO DAILY, (Reported) FILLED 06-01-19 TO TAKE TWICE DAILY X 1 WEEK, THEN 1 DAILY FOR 3 WEEKS THEN DISCONTINUE Aspirin 81 Mg Tablet.dr, 81 MG PO DAILY, (Reported) Atorvastatin Calcium 80 Mg Tablet, 80 MG PO HS, (Reported) Buspirone HCl 7.5 Mg Tablet, 7.5 MG PO BID, (Reported) Cholecalciferol (Vitamin D3) 1,000 Unit Capsule, 1,000 UNIT PO DAILY, (Reported) Citalopram Hydrobromide 40 Mg Tablet, 40 MG PO DAILY, (Reported) Enoxaparin Sodium 120 Mg/0.8 Ml Syringe, 120 MG SQ BID Prescribed by: AMINAH SEGURA on 06/14/19 1403 Fluticasone/Salmeterol 1 Each Blst.w.dev, 1 PUFF IH BID, (Reported) Furosemide 20 Mg Tablet, 20 MG PO DAILY, (Reported) Insulin NPH Human Isophane 100 Unit/1 Ml Insuln.pen, 7 UNIT SQ BID, (Reported) Ipratropium/Albuterol Sulfate 3 Ml Ampul.neb, 3 ML NEB QID PRN for SHORTNESS OF BREATH, (Reported) Krill/Om-3/Dha/Epa/Phospho/Ast 1 Each Capsule, 1,000 MG PO DAILY, (Reported) Loratadine 10 Mg Tablet, 10 MG PO DAILY, (Reported) Metformin HCl 500 Mg Tablet, 1,000 MG PO BID, (Reported) TAKES 2 (500MG) TABLETS Metoprolol Tartrate 25 Mg Tablet, 25 MG PO BID, (Reported) Montelukast Sodium 10 Mg Tablet, 10 MG PO HS, (Reported) Multivitamin 1 Each Tablet, 1 TAB PO DAILY, (Reported) Nitroglycerin 0.4 Mg Tab.subl, 0.4 MG SL UD PRN for CHEST PAIN, (Reported) Pantoprazole Sodium 40 Mg Tablet.dr, 40 MG PO DAILY, (Reported) Potassium Chloride 10 Meq Tablet.er, 10 MEQ PO DAILY, (Reported) Tramadol HCl 50 Mg Tablet, 50-100 MG PO Q6H PRN for PAIN-MODERATE, (Reported) Vit A/Vit C/Vit E/Zinc/Copper 1 Each Tablet, 1 TAB PO DAILY, (Reported) Vitamin C/Biotin 1 Each Tab.chew, 1 TAB.CHEW PO DAILY, (Reported) Warfarin Sodium 5 Mg Tablet, 5 MG PO DAILY@1800 Prescribed by: AIMNAH SEGURA on 06/14/19 1403 Patient Home Medication List Home Medication List Reviewed: Yes Review of Systems Constitutional: no symptoms reported EENTM: no symptoms reported Respiratory: no symptoms reported Cardiovascular: no symptoms reported Gastrointestinal: no symptoms reported Genitourinary: no symptoms reported : No Musculoskeletal: no symptoms reported, other (b/l upper arm pain, worse at left mid-humerus) Skin: no symptoms reported, other (skin tear right elbow) Psychiatric/Neurological: No Symptoms Reported All Other Systems Reviewed Negative Unless Noted: Yes Past Phntzcn-Cagcrw-Xbcyav Hx Past Med/Social Hx: Reviewed Nursing Past Med/Soc Hx Patient Social History Type Used: Cigarettes Former Smoker, Quit: January 01, 2019 2nd Hand Smoke Exposure: No Recent Foreign Travel: No Recent Hopitalizations: Yes (VIA [employer] 01/17/19) Immunizations Up To Date PED Vaccines UTD: Yes Date of Pneumonia Vaccine: Jun 11, 2017 Date of Influenza Vaccine: Jun 08, 2019 Seasonal Allergies Seasonal Allergies: No Past Medical History Surgeries: Yes (Coronary stenting x 2 12/2018) Section, Coronary Stent, Hysterectomy Respiratory: Yes (Initiation home CPAP 03/18/19, Tobaccoism Hx) Sleep Apnea, COPD Currently Using CPAP: No Currently Using BIPAP: No Cardiac: Yes (CHF) Coronary Artery Disease, Heart Attack, Hypertension 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 Sexually Transmitted Disease: No HIV/AIDS: No Genitourinary: No Gastrointestinal: No Musculoskeletal: No Endocrine: Yes Diabetes, Non-Insulin dep HEENT: No Cancer: Yes Melanoma Did You Recieve Any Treatments: No What Type of Treatment Did You: Surgical Intervention Psychosocial: No Integumentary: Yes (Melanoma on Right arm Removed) Blood Disorders: No Adverse Reaction/Blood Tranf: No Family Medical History Alcoholism 19 MOTHER Alzheimer's disease 19 FATHER Arthritis 19 FATHER Asthma 19 FATHER Cardiovascular disease 19 FATHER Cataracts 19 FATHER Diabetes mellitus Hypertension 19 FATHER 19 MOTHER Myocardial infarction 19 FATHER Osteoporosis 19 MOTHER Parkinson's disease 19 MOTHER Respiratory disorder 19 MOTHER No Family History of: Glaucoma Physical Exam Vital Signs Vital Signs - First Documented 08/25/19 08:43 Temp 36.9 Pulse 98 Resp 16 B/P (MAP) 157/83 (107) Pulse Ox 98 Capillary Refill : Height, Weight, BMI Height: 6'0" Weight: 252lbs. 9.0oz. 114.198770id; 33.83 BMI Method:Stated General Appearance: WD/WN, no apparent distress HEENT: PERRL/EOMI, pharynx normal Neck: non-tender, full range of motion, supple Cardiovascular: regular rate, rhythm, no edema, no JVD Respiratory: chest non-tender, lungs clear, normal breath sounds, no respiratory distress, no accessory muscle use Back: normal inspection, no CVA tenderness, no vertebral tenderness Shoulder: swelling (left mid-humerus swelling/hematoma, decreased ROM 2/2 pain, no clavicle ttp, no dislocation/deformity, distally CMS intact) Elbow/Forearm: Right (skin tear, FROM present) Wrist: Yes normal inspection, Yes non-tender, Yes no evidence of injury, Yes normal ROM Hand: normal inspection, non-tender, no evidence of injury, normal ROM Neurologic/Psychiatric: designer/writer II-XII nml as tested, no motor/sensory deficits, alert, normal mood/affect, oriented x 3 Skin: normal color, warm/dry Procedures/Interventions Date of ETT Placement: January 02, 2019 Time of ETT Placement: 1119 Progress/Results/Core Measures Results/Orders My Orders Orders - CHRISTOPHER HOFFMAN DO Dipht,Pertuss(Acell),Tet Adult (Boostrix (08/25/19 09:00) Humerus 2 View Left (08/25/19 08:54) Humerus 2 View Right (08/25/19 08:54) Chest 1 View Ap/Pa Only (08/25/19 08:54) Tramadol Tablet (Ultram Tablet) (08/25/19 10:00) Ed Ortho/Other Supplies Order (08/25/19 09:51) Medications Given in ED Current Medications Medications Dose Ordered Sig/Ciara Route Start Time Stop Time Status Last Admin Dose Admin Diphtheria/ Tetanus/Acell Pertussis 0.5 ml ONCE ONCE IM 08/25/19 09:00 08/25/19 09:01 DC 08/25/19 09:09 0.5 ML Vital Signs/I&O 08/25/19 08:43 Temp 36.9 Pulse 98 Resp 16 B/P (MAP) 157/83 (107) Pulse Ox 98 Progress Progress Note : Progress Note @0935 - Case discussed with Dr. Aceves's nurse ([facility]). She discussed the case with Dr. Aceves who recommends putting the patient in a sling and following up with him in the next 1-2 days in his office. My concerns that the patient will have to have a slightly on both arms because she has bilateral fractures of her upper arms. The patient states that her should be able to provide her care at home and she would prefer to go home then to be admitted especially because the surgery would not take place probably for a few days. This will be discussed at length with the patient's to make sure that he understands and feels capable of providing her care at home. Then this will be discussed again with Dr. Aceves and his nurse. @5147 - patient discussed her injuries with her who is able to take off of work and is comfortable providing her care at home. The patient declines admission/transfer at this time. She states that she is tolerated tramadol in the past and would like a prescription for this as opposed to any other hydrocodone/oxycodone medication. The patient is stable for discharge at this time. Diagnostic Imaging Diagonstic Imaging: Xray Comments [facility], [place] NAME: CARMEN RICHARDSON [facility] REC#: [id number] PT STATUS: REG ER : 1955 PHYSICIAN: CHRISTOPHER HOFFMAN DO ADMIT DATE: 08/25/19/ER FS Draft Date of Exam:08/25/19 HUMERUS 2 VIEW LEFT INDICATION: Fall. Time of exam 8:42 AM Multiple views left femur demonstrate an obliquely oriented fracture of the proximal humerus near the junction of the proximal and mid 3rd. There is medial displacement of the distal fracture fragment. Alignment at the elbow and shoulder is normal. There is also a fracture of the proximal humerus involving the greater tuberosity. IMPRESSION: Obliquely oriented fracture through the mid shaft humerus, as described. There is also a nondisplaced fracture of the greater tuberosity of the proximal humerus. Dictated on workstation # [id number] Dict: 08/25/19917 Trans: 08/25/19923 [facility] [phone] Interpreted by: KIT ROMERO MD Electronically signed by: Departure Impression Primary Impression: Fracture of proximal end of right humerus Additional Impressions: Closed fracture of shaft of left humerus Fracture of head of left humerus Disposition: 01 HOME, SELF-CARE Condition: Stable Departure-Patient Inst. Decision time for Depature: 09:58 Referrals: BULMARO ACEVES MD Patient Instructions: How to Use a Shoulder Sling, Shoulder Fracture Add. Discharge Instructions: Call Dr. Aceves's office at [phone] to be seen as soon as possible. Take the prescribed pain medication as needed. Return to the emergency Department immediately for new or worsening symptoms. Scripts Tramadol HCl (Tramadol HCl) 50 Mg Tablet 50 MG PO Q6H PRN for PAIN for 5 Days, #20 TAB 0 Refills Prov: CHRISTOPHER HOFFMAN DO 08/25/19 CHRISTOPHER HOFFMAN DO Aug 25, 2019 09:03
--- NOTE | 2019-08-25 09:22 | Diagnostic Imaging Report ---
INDICATION: Fall. Time of exam 8:44 AM Comparison is made with prior chest from 06/11/2019. Changes of median sternotomy are noted. Heart size is stable. Lungs are clear. No infiltrate, effusion or pneumothorax is detected. IMPRESSION: No acute cardiopulmonary process is detected. Dictated by: Dictated on workstation # [id number]
--- NOTE | 2019-08-25 09:23 | Diagnostic Imaging Report ---
INDICATION: Fall. Time of exam 8:38 AM Multiple views right humerus were obtained. There is normal alignment at the shoulder and elbow. There is an acute fracture of the proximal humerus. This appears to be slightly impacted at the neck. No significant displacement or angulation is seen. Distal humerus is intact. IMPRESSION: Impacted proximal humerus fracture. Dictated by: Dictated on workstation # [id number]
[2019-08-25] MEDS ORDERED: morphine INJ 10 MG/ML 1ML (SYR OR VIAL) IVP STA (09:24)
--- NOTE | 2019-08-25 09:24 | Diagnostic Imaging Report ---
INDICATION: Fall. Time of exam 8:42 AM Multiple views left femur demonstrate an obliquely oriented fracture of the proximal humerus near the junction of the proximal and mid 3rd. There is medial displacement of the distal fracture fragment. Alignment at the elbow and shoulder is normal. There is also a fracture of the proximal humerus involving the greater tuberosity. IMPRESSION: Obliquely oriented fracture through the mid shaft humerus, as described. There is also a nondisplaced fracture of the greater tuberosity of the proximal humerus. Dictated by: Dictated on workstation # [id number]
[2019-08-25] MEDS ORDERED: TRAM50TA2 PO (09:58)
[2019-08-25 10:15] VITALS: BP 121/71
== END 2019-08-25 10:15 | disposition home or self-care (01) ==
LOC: EDUNIT# 08:40 → ER FS 08:41
DX: S42.201A Unspecified fracture of upper end of right humerus, initial encounter for closed fracture (principal); S42.302A Unspecified fracture of shaft of humerus, left arm, initial encounter for closed fracture; S42.202A Unspecified fracture of upper end of left humerus, initial encounter for closed fracture; J44.9 Chronic obstructive pulmonary disease, unspecified; I11.0 Hypertensive heart disease with heart failure; E11.9 Type 2 diabetes mellitus without complications; I50.9 Heart failure, unspecified; I25.10 Atherosclerotic heart disease of native coronary artery without angina pectoris; I25.2 Old myocardial infarction; Z85.820 Personal history of malignant melanoma of skin; Z90.710 Acquired absence of both cervix and uterus; Z95.5 Presence of coronary angioplasty implant and graft; Z79.82 Long term (current) use of aspirin; Z79.51 Long term (current) use of inhaled steroids; Z79.4 Long term (current) use of insulin; Z79.01 Long term (current) use of anticoagulants; Z87.891 Personal history of nicotine dependence; Z82.49 Family history of ischemic heart disease and other diseases of the circulatory system; Z23 Encounter for immunization; W01.0XXA Fall on same level from slipping, tripping and stumbling without subsequent striking against object, initial encounter; Y93.K1 Activity, walking an animal
CPT/HCPCS: 71045; 73060; 90471; 90715

== ENCOUNTER → 2020-03-08 | Outpatient (CLI) | payer MEDICARE, OTHER ==
[~2020-03-08] MED LIST changes: -GLIM1TAB PO; +GLIM1TAB4 PO; -GLIM4TAB PO; +GLIM4TAB5 PO; -MONT10TA24 PO; +MONT10TA26 PO; +MULT-567 PO; -MULT1TAB69 PO; -TRAM50TA2 PO; +TRM50T PO; -WARF5TAB PO; +WARF5TAB2 PO
== END ==
LOC: CARD 11:45
PROVIDERS: ATTEND Internal Medicine Cardiovascular Disease
DX: I08.1 Rheumatic disorders of both mitral and tricuspid valves (principal); E11.9 Type 2 diabetes mellitus without complications; G47.10 Hypersomnia, unspecified; E78.2 Mixed hyperlipidemia; G47.33 Obstructive sleep apnea (adult) (pediatric)
CPT/HCPCS: 93306

== ENCOUNTER → 2020-03-08 | Outpatient (CLI) | payer MEDICARE, OTHER ==
--- NOTE | 2020-03-08 13:36 | Diagnostic Imaging Report ---
CT Lung Screening INDICATION: History of tobacco use with a 46 pack year history. Quit smoking 14 months ago. Shortness of air along with chest heaviness. TECHNIQUE: Noncontrast, low-dose CT imaging performed according to lung cancer screening protocol. Auto Exposure Controls were utilized during the CT exam to meet ALARA standards for radiation dose reduction. COMPARISON: Chest radiograph 08/25/2019, CT chest 02/24/2019 FINDINGS: HEART/MEDIASTINUM: Poststernotomy changes. Appears to be nonunion across the sternotomy. Heart size is enlarged. Scattered areas of coronary artery calcification as well as a cardiac valvular calcification. Surgical changes of the mitral valve. No pericardial effusion. Thoracic aortic contour unremarkable. No suggestion for pathologically enlarged mediastinal lymph nodes on limited, noncontrast imaging. LUNGS/MEASURED PULMONARY NODULES: Mildly advanced emphysematous change about the lung parenchyma. No infiltrate. There are few scattered micronodules present. No concerning pulmonary mass at the baseline assessment. Minimal areas of scarring at the left as well as right lung base. No significant effusion. OTHER: Mildly advanced degenerative change about the thoracic spine. IMPRESSION: 1. No concerning pulmonary mass at baseline screening assessment. 2. Cardiac enlargement with scattered coronary artery calcification with the prior sternotomy changes. LUNG-RADS CATEGORY: 1 LUNG SCREENING MANAGEMENT/RECOMMENDATIONS: Continued annual screening with low dose CT in 12 months. Notes: Lung rads category 1 or 2 does not mean that an individual does not have lung cancer or other active disease process, but rather nothing is identified to meet criteria for current lung pathology. Therefore, continued annual lung cancer screening should be performed. Please note that this is a low dose CT examination, intended for lung cancer screening of high risk patients. As a technical result, the examination is limited in diagnostic quality compared to a conventional CT examination of the chest. Dictated by: Dictated on workstation # [id number]
== END ==
LOC: RAD 11:38
PROVIDERS: ATTEND Nurse Practitioner Family
DX: Z12.2 Encounter for screening for malignant neoplasm of respiratory organs (principal); I51.7 Cardiomegaly; I25.10 Atherosclerotic heart disease of native coronary artery without angina pectoris; J43.9 Emphysema, unspecified; M47.814 Spondylosis without myelopathy or radiculopathy, thoracic region; Z87.891 Personal history of nicotine dependence; Z98.890 Other specified postprocedural states

== ENCOUNTER → 2020-03-09 | Outpatient (CLI) | payer MEDICARE, OTHER ==
[~2020-03-09] VITALS: Ht 182 cm; Wt 105.0 kg
[~2020-03-09] MED LIST changes: +REGADENOSON 0.4 MG/5 ML SYR (LEXISCAN) IV ONE
[2020-03-09] MEDS: CATHETER FLUSH 10 ML SYR IV PRN ×2 (08:37→10:08)
[2020-03-09 10:07] VITALS: BP 256/116
--- NOTE | 2020-03-09 12:32 | Cardiology Stress Test Report ---
Stress Test Report Date of Procedure/Referring: Date of Procedure: Mar 09, 2020 PCP Erin Em MD Admitting Physician Kade Hagen MD Indications: Diabetes mellitus, hyperlipidemia Baseline Heart Rate: 83 Baseline Blood Pressure: Blood Pressure Systolic: 256 Blood Pressure Diastolic: 116 Baseline Vitals Vital Signs Date Time Temp Pulse Resp B/P (MAP) Pulse Ox O2 Delivery O2 Flow Rate FiO2 03/09/20 10:07 83 16 256/116 (162) 98 Room Air Baseline EKG: Baseline EKG: Left bundle branch block Summary After explaining the procedure to the patient, she signed a consent and then brought to the stress nuclear laboratory. Patient received 0.4 mg Lexiscan for stress test, ECG, heart rate and blood pressure were monitored continuously. Resting and stress dose of radio tracer were injected, imaging was acquired and reviewed in short axis, horizontal long axis and vertical long axis views. TID: 1.03 SSS: 7 SDS: 5 EF: 32 1. Patient tolerated Lexiscan well 2. Baseline left bundle branch block persisted during test 3. Severe hypertension persisted throughout test 4. Patchy uptake with decreased uptake involving the whole inferior wall and inferolateral wall and anterolateral wall with mild reversibility 5. Prominent left ventricle with diffuse left ventricular hypokinesia, more pronounced at the inferior wall, EF 32 percent ERIN EM MD Mar 09, 2020 12:32
== END ==
LOC: CARD 08:17
PROVIDERS: ATTEND Internal Medicine Cardiovascular Disease
DX: E11.9 Type 2 diabetes mellitus without complications (principal); G47.10 Hypersomnia, unspecified; E78.2 Mixed hyperlipidemia; G47.33 Obstructive sleep apnea (adult) (pediatric); I51.89 Other ill-defined heart diseases
CPT/HCPCS: 78452; 93017; A9502

== ENCOUNTER 2020-03-16 06:53 | Day surgery (SDC) | payer MEDICARE, OTHER ==
[~2020-03-16] VITALS: Ht 183 cm; Wt 105.0 kg
[2020-03-16] VITALS (10 sets, daily range): BP systolic 110–153; BP diastolic 62–96
[~2020-03-16 06:53] MED LIST changes: -REGADENOSON 0.4 MG/5 ML SYR (LEXISCAN) IV ONE
[2020-03-16] MEDS ORDERED: HEParin (CATH LAB) 2,000 ML IV ONE (06:59)
[2020-03-16] MEDS ORDERED: LIDOCAINE 1% INJ 20 ML 20 ML VIAL ONE (06:59)
[2020-03-16] MEDS ORDERED: NS IV 1000 ML 1,000 ML ONE (06:59)
[2020-03-16] MEDS ORDERED: NS IV 1000 ML 1,000 ML IV SCH ×2 (07:00→09:39)
--- OUTSIDE RECORDS SUMMARY | 2020-03-16 07:17 | XMS REPORT | Continuity of Care Document ---
Author Organization Unknown Address Unknown Phone Unavailable Allergies Active Description Code Type Severity Reaction Onset Reported/Identified Relationship to Patient Clinical Status Yes No Known Drug Allergies [id number] Drug Allergy Unknown N/A 01/01/2019 Medications There is no data. Problems Date Dx Coded Attending Type Code Diagnosis Diagnosed By 01/02/2019 ANDREA WHITING MD, Ot D72.829 ELEVATED WHITE BLOOD CELL COUNT, UNSPECI 01/02/2019 ANDREA WHITING MD, Ot E11 .9 TYPE 2 DIABETES MELLITUS WITHOUT COMPLIC 01/02/2019 ANDREA WHITING MD Ot E87 .5 HYPERKALEMIA 01/02/2019 ANDREA WHITING MD Ot F17.210 NICOTINE DEPENDENCE, CIGARETTES, UNCOMPL 01/02/2019 ANDREA WHITING MD Ot G47.33 OBSTRUCTIVE SLEEP APNEA (ADULT) (PEDIATR 01/02/2019 ANDREA WHITING MD Ot I10 ESSENTIAL (PRIMARY) HYPERTENSION 01/02/2019 ANDREA WHITING MD Ot I21 .4 NON-ST ELEVATION (NSTEMI) MYOCARDIAL INF 01/02/2019 ANDREA WHITING MD Ot I45.10 UNSPECIFIED RIGHT BUNDLE-BRANCH BLOCK 01/02/2019 ANDREA WHITING MD Ot I95 .9 HYPOTENSION, UNSPECIFIED 01/02/2019 ANDREA WHITING MD Ot J44 .1 CHRONIC OBSTRUCTIVE PULMONARY DISEASE W 01/02/2019 ANDREA WHITING MD Ot Z85.820 PERSONAL HISTORY OF MALIGNANT MELANOMA O 01/02/2019 ANDREA WHITING MD Ot D72.829 ELEVATED WHITE BLOOD CELL COUNT, UNSPECI 01/02/2019 ANDREA WHITING MD Ot E11 .9 TYPE 2 DIABETES MELLITUS WITHOUT COMPLIC 01/02/2019 ANDREA WHITING MD Ot E87 .5 HYPERKALEMIA 01/02/2019 ANDREA WHITING MD Ot F17.210 NICOTINE DEPENDENCE, CIGARETTES, UNCOMPL 01/02/2019 ANDREA WHITING MD Ot G47.33 OBSTRUCTIVE SLEEP APNEA (ADULT) (PEDIATR 01/02/2019 ANDREA WHITING MD Ot I10 ESSENTIAL (PRIMARY) HYPERTENSION 01/02/2019 ANDREA WHITING MD Ot I21 .4 NON-ST ELEVATION (NSTEMI) MYOCARDIAL INF 01/02/2019 ANDREA WHITING MD Ot I45.10 UNSPECIFIED RIGHT BUNDLE-BRANCH BLOCK 01/02/2019 ANDREA WHITING MD Ot I95 .9 HYPOTENSION, UNSPECIFIED 01/02/2019 ANDREA WHITING MD Ot J44 .1 CHRONIC OBSTRUCTIVE PULMONARY DISEASE W 01/02/2019 ANDREA WHITING MD Ot Z85.820 PERSONAL HISTORY OF MALIGNANT MELANOMA O 01/02/2019 ANDREA WHITING MD Ot D72.829 ELEVATED WHITE BLOOD CELL COUNT, UNSPECI 01/02/2019 ANDREA WHITING MD Ot E11 .9 TYPE 2 DIABETES MELLITUS WITHOUT COMPLIC 01/02/2019 ANDREA WHITING MD Ot E87 .5 HYPERKALEMIA 01/02/2019 ANDREA WHITING MD Ot F17.210 NICOTINE DEPENDENCE, CIGARETTES, UNCOMPL 01/02/2019 ANDREA WHITING MD Ot G47.33 OBSTRUCTIVE SLEEP APNEA (ADULT) (PEDIATR 01/02/2019 ANDREA WHITING MD Ot I10 ESSENTIAL (PRIMARY) HYPERTENSION 01/02/2019 ANDREA WHITING MD Ot I21 .4 NON-ST ELEVATION (NSTEMI) MYOCARDIAL INF 01/02/2019 ANDREA WHITING MD Ot I45.10 UNSPECIFIED RIGHT BUNDLE-BRANCH BLOCK 01/02/2019 ANDREA WHITING MD Ot I95 .9 HYPOTENSION, UNSPECIFIED 01/02/2019 ANDREA WHITING MD Ot J44 .1 CHRONIC OBSTRUCTIVE PULMONARY DISEASE W 01/02/2019 ANDREA WHITING MD Ot Z85.820 PERSONAL HISTORY OF MALIGNANT MELANOMA O 01/03/2019 ANDREA WHITING MD Ot D72.829 ELEVATED WHITE BLOOD CELL COUNT, UNSPECI 01/03/2019 ANDREA WHITING MD Ot E11 .9 TYPE 2 DIABETES MELLITUS WITHOUT COMPLIC 01/03/2019 ANDREA WHITING MD Ot E87 .5 HYPERKALEMIA 01/03/2019 ANDREA WHITING MD Ot F17.210 NICOTINE DEPENDENCE, CIGARETTES, UNCOMPL 01/03/2019 ANDREA WHITING MD Ot G47.33 OBSTRUCTIVE SLEEP APNEA (ADULT) (PEDIATR 01/03/2019 ANDREA WHITING MD Ot I10 ESSENTIAL (PRIMARY) HYPERTENSION 01/03/2019 ANDREA WHITING MD Ot I21 .4 NON-ST ELEVATION (NSTEMI) MYOCARDIAL INF 01/03/2019 ANDREA WHITING MD Ot I45.10 UNSPECIFIED RIGHT BUNDLE-BRANCH BLOCK 01/03/2019 ANDREA WHITING MD Ot I95 .9 HYPOTENSION, UNSPECIFIED 01/03/2019 ANDREA WHITING MD Ot J44 .1 CHRONIC OBSTRUCTIVE PULMONARY DISEASE W 01/03/2019 ANDREA WHITING MD Ot Z85.820 PERSONAL HISTORY OF MALIGNANT MELANOMA O 01/04/2019 ANDREA WHITING MD Ot D72.829 ELEVATED WHITE BLOOD CELL COUNT, UNSPECI 01/04/2019 ANDREA WHITING MD Ot E11 .9 TYPE 2 DIABETES MELLITUS WITHOUT COMPLIC 01/04/2019 ANDREA WHITING MD Ot E87 .5 HYPERKALEMIA 01/04/2019 ANDREA WHITING MD Ot F17.210 NICOTINE DEPENDENCE, CIGARETTES, UNCOMPL 01/04/2019 ANDREA WHITING MD Ot G47.33 OBSTRUCTIVE SLEEP APNEA (ADULT) (PEDIATR 01/04/2019 ANDREA WHITING MD Ot I10 ESSENTIAL (PRIMARY) HYPERTENSION 01/04/2019 ANDREA WHITING MD Ot I21 .4 NON-ST ELEVATION (NSTEMI) MYOCARDIAL INF 01/04/2019 ANDREA WHITING MD Ot I45.10 UNSPECIFIED RIGHT BUNDLE-BRANCH BLOCK 01/04/2019 ANDREA WHITING MD Ot I95 .9 HYPOTENSION, UNSPECIFIED 01/04/2019 ANDREA WHITING MD Ot J44 .1 CHRONIC OBSTRUCTIVE PULMONARY DISEASE W 01/04/2019 ANDREA WHITING MD Ot Z85.820 PERSONAL HISTORY OF MALIGNANT MELANOMA O 01/05/2019 ANDREA WHITING MD Ot D72.829 ELEVATED WHITE BLOOD CELL COUNT, UNSPECI 01/05/2019 ANDREA WHITING MD Ot E11 .9 TYPE 2 DIABETES MELLITUS WITHOUT COMPLIC 01/05/2019 ANDREA WHITING MD Ot E87 .5 HYPERKALEMIA 01/05/2019 ANDREA WHITING MD Ot F17.210 NICOTINE DEPENDENCE, CIGARETTES, UNCOMPL 01/05/2019 ANDREA WHITING MD Ot G47.33 OBSTRUCTIVE SLEEP APNEA (ADULT) (PEDIATR 01/05/2019 ANDREA WHITING MD Ot I10 ESSENTIAL (PRIMARY) HYPERTENSION 01/05/2019 ANDREA WHITING MD Ot I21 .4 NON-ST ELEVATION (NSTEMI) MYOCARDIAL INF 01/05/2019 ANDREA WHITING MD Ot I45.10 UNSPECIFIED RIGHT BUNDLE-BRANCH BLOCK 01/05/2019 ANDREA WHITING MD Ot I95 .9 HYPOTENSION, UNSPECIFIED 01/05/2019 ANDREA WHITING MD Ot J44 .1 CHRONIC OBSTRUCTIVE PULMONARY DISEASE W 01/05/2019 ANDREA WHITING MD Ot Z85.820 PERSONAL HISTORY OF MALIGNANT MELANOMA O 01/06/2019 ANDREA WHITING MD Ot D72.829 ELEVATED WHITE BLOOD CELL COUNT, UNSPECI 01/06/2019 ANDREA WHITING MD Ot E11 .9 TYPE 2 DIABETES MELLITUS WITHOUT COMPLIC 01/06/2019 ANDREA WHITING MD Ot E87 .5 HYPERKALEMIA 01/06/2019 ANDREA WHITING MD Ot F17.210 NICOTINE DEPENDENCE, CIGARETTES, UNCOMPL 01/06/2019 ANDREA WHITING MD Ot G47.33 OBSTRUCTIVE SLEEP APNEA (ADULT) (PEDIATR 01/06/2019 ANDREA WHITING MD Ot I10 ESSENTIAL (PRIMARY) HYPERTENSION 01/06/2019 ANDREA WHITING MD Ot I21 .4 NON-ST ELEVATION (NSTEMI) MYOCARDIAL INF 01/06/2019 ANDREA WHITING MD Ot I45.10 UNSPECIFIED RIGHT BUNDLE-BRANCH BLOCK 01/06/2019 ANDREA WHITING MD Ot I95 .9 HYPOTENSION, UNSPECIFIED 01/06/2019 ANDREA WHITING MD Ot J44 .1 CHRONIC OBSTRUCTIVE PULMONARY DISEASE W 01/06/2019 ANDREA WHITING MD Ot Z85.820 PERSONAL HISTORY OF MALIGNANT MELANOMA O 01/06/2019 ANDREA WHITING MD Ot D72.829 ELEVATED WHITE BLOOD CELL COUNT, UNSPECI 01/06/2019 ANDREA WHITING MD Ot E11 .9 TYPE 2 DIABETES MELLITUS WITHOUT COMPLIC 01/06/2019 ANDREA WHITING MD Ot E87 .5 HYPERKALEMIA 01/06/2019 ANDREA WHITING MD Ot F17.210 NICOTINE DEPENDENCE, CIGARETTES, UNCOMPL 01/06/2019 ANDREA WHITING MD Ot G47.33 OBSTRUCTIVE SLEEP APNEA (ADULT) (PEDIATR 01/06/2019 ANDREA WHITING MD Ot I10 ESSENTIAL (PRIMARY) HYPERTENSION 01/06/2019 ANDREA WHITING MD Ot I21 .4 NON-ST ELEVATION (NSTEMI) MYOCARDIAL INF 01/06/2019 ANDREA WHITING MD Ot I45.10 UNSPECIFIED RIGHT BUNDLE-BRANCH BLOCK 01/06/2019 ANDREA WHITING MD Ot I95 .9 HYPOTENSION, UNSPECIFIED 01/06/2019 ANDREA WHITING MD Ot J44 .1 CHRONIC OBSTRUCTIVE PULMONARY DISEASE W 01/06/2019 ANDREA WHITING MD Ot Z85.820 PERSONAL HISTORY OF MALIGNANT MELANOMA O 01/06/2019 ANDREA WHITING MD Ot D72.829 ELEVATED WHITE BLOOD CELL COUNT, UNSPECI 01/06/2019 ANDREA WHITING MD Ot E11 .9 TYPE 2 DIABETES MELLITUS WITHOUT COMPLIC 01/06/2019 ANDREA WHITING MD Ot E87 .5 HYPERKALEMIA 01/06/2019 ANDREA WHITING MD Ot F17.210 NICOTINE DEPENDENCE, CIGARETTES, UNCOMPL 01/06/2019 ANDREA WHITING MD Ot G47.33 OBSTRUCTIVE SLEEP APNEA (ADULT) (PEDIATR 01/06/2019 ANDREA WHITING MD Ot I10 ESSENTIAL (PRIMARY) HYPERTENSION 01/06/2019 ANDREA WHITING MD Ot I21 .4 NON-ST ELEVATION (NSTEMI) MYOCARDIAL INF 01/06/2019 ANDREA WHITING MD Ot I45.10 UNSPECIFIED RIGHT BUNDLE-BRANCH BLOCK 01/06/2019 ANDREA WHITING MD Ot I95 .9 HYPOTENSION, UNSPECIFIED 01/06/2019 ANDREA WHITING MD Ot J44 .1 CHRONIC OBSTRUCTIVE PULMONARY DISEASE W 01/06/2019 ANDREA WHITING MD Ot Z85.820 PERSONAL HISTORY OF MALIGNANT MELANOMA O 01/07/2019 ANDREA WHITING MD Ot D72.829 ELEVATED WHITE BLOOD CELL COUNT, UNSPECI 01/07/2019 ANDREA WHITING MD Ot E11 .9 TYPE 2 DIABETES MELLITUS WITHOUT COMPLIC 01/07/2019 ANDREA WHITING MD Ot E87 .5 HYPERKALEMIA 01/07/2019 ANDREA WHITING MD Ot F17.210 NICOTINE DEPENDENCE, CIGARETTES, UNCOMPL 01/07/2019 ANDREA WHITING MD Ot G47.33 OBSTRUCTIVE SLEEP APNEA (ADULT) (PEDIATR 01/07/2019 ANDREA WHITING MD Ot I10 ESSENTIAL (PRIMARY) HYPERTENSION 01/07/2019 ANDREA WHITING MD Ot I21 .4 NON-ST ELEVATION (NSTEMI) MYOCARDIAL INF 01/07/2019 ANDREA WHITING MD Ot I45.10 UNSPECIFIED RIGHT BUNDLE-BRANCH BLOCK 01/07/2019 ANDREA WHITING MD Ot I95 .9 HYPOTENSION, UNSPECIFIED 01/07/2019 ANDREA WHITING MD Ot J44 .1 CHRONIC OBSTRUCTIVE PULMONARY DISEASE W 01/07/2019 ANDREA WHITING MD Ot Z85.820 PERSONAL HISTORY OF MALIGNANT MELANOMA O 01/08/2019 ANDREA WHITING MD Ot A41 .9 SEPSIS, UNSPECIFIED ORGANISM 01/08/2019 ANDREA WHITING MD Ot D72.829 ELEVATED WHITE BLOOD CELL COUNT, UNSPECI 01/08/2019 ANDREA WHITING MD Ot E11 .9 TYPE 2 DIABETES MELLITUS WITHOUT COMPLIC 01/08/2019 ANDREA WHITING MD Ot E87 .5 HYPERKALEMIA 01/08/2019 ANDREA WHITING MD Ot F17.210 NICOTINE DEPENDENCE, CIGARETTES, UNCOMPL 01/08/2019 ANDREA WHITING MD Ot G47.33 OBSTRUCTIVE SLEEP APNEA (ADULT) (PEDIATR 01/08/2019 ANDREA WHITING MD Ot I10 ESSENTIAL (PRIMARY) HYPERTENSION 01/08/2019 ANDREA WHITING MD Ot I21 .4 NON-ST ELEVATION (NSTEMI) MYOCARDIAL INF 01/08/2019 ANDREA WHITING MD Ot I45.10 UNSPECIFIED RIGHT BUNDLE-BRANCH BLOCK 01/08/2019 ANDREA WHITING MD Ot I95 .9 HYPOTENSION, UNSPECIFIED 01/08/2019 ANDREA WHITING MD Ot J18 .9 PNEUMONIA, UNSPECIFIED ORGANISM 01/08/2019 ANDREA WHITING MD Ot J44 .1 CHRONIC OBSTRUCTIVE PULMONARY DISEASE W 01/08/2019 ANDREA WHITING MD Ot J96.00 ACUTE RESPIRATORY FAILURE, UNSP W HYPOXI 01/08/2019 ANDREA WHITING MD Ot R65.20 SEVERE SEPSIS WITHOUT SEPTIC SHOCK 01/08/2019 ANDREA WHITING MD Ot Z85.820 PERSONAL HISTORY OF MALIGNANT MELANOMA O 01/09/2019 ANDREA WHITING MD Ot A41 .9 SEPSIS, UNSPECIFIED ORGANISM 01/09/2019 ANDREA WHITING MD Ot D72.829 ELEVATED WHITE BLOOD CELL COUNT, UNSPECI 01/09/2019 ANDREA WHITING MD Ot E11 .9 TYPE 2 DIABETES MELLITUS WITHOUT COMPLIC 01/09/2019 ANDREA WHITING MD Ot E87 .5 HYPERKALEMIA 01/09/2019 ANDREA WHITING MD Ot F17.210 NICOTINE DEPENDENCE, CIGARETTES, UNCOMPL 01/09/2019 ANDREA WHITING MD Ot G47.33 OBSTRUCTIVE SLEEP APNEA (ADULT) (PEDIATR 01/09/2019 ANDREA WHITING MD Ot I10 ESSENTIAL (PRIMARY) HYPERTENSION 01/09/2019 ANDREA WHITING MD Ot I21 .4 NON-ST ELEVATION (NSTEMI) MYOCARDIAL INF 01/09/2019 ANDREA WHITING MD Ot I45.10 UNSPECIFIED RIGHT BUNDLE-BRANCH BLOCK 01/09/2019 ANDREA WHITING MD Ot I95 .9 HYPOTENSION, UNSPECIFIED 01/09/2019 ANDREA WHITING MD Ot J18 .9 PNEUMONIA, UNSPECIFIED ORGANISM 01/09/2019 ANDREA WHITING MD Ot J44 .1 CHRONIC OBSTRUCTIVE PULMONARY DISEASE W 01/09/2019 ANDREA WHITING MD Ot J96.00 ACUTE RESPIRATORY FAILURE, UNSP W HYPOXI 01/09/2019 ANDREA WHITING MD Ot R65.20 SEVERE SEPSIS WITHOUT SEPTIC SHOCK 01/09/2019 ANDREA WHITING MD Ot Z85.820 PERSONAL HISTORY OF MALIGNANT MELANOMA O 01/10/2019 ANDREA WHITING MD Ot A41 .9 SEPSIS, UNSPECIFIED ORGANISM 01/10/2019 ANDREA WHITING MD Ot D72.829 ELEVATED WHITE BLOOD CELL COUNT, UNSPECI 01/10/2019 ANDREA WHITING MD Ot E11 .9 TYPE 2 DIABETES MELLITUS WITHOUT COMPLIC 01/10/2019 ANDREA WHITING MD Ot E87 .5 HYPERKALEMIA 01/10/2019 ANDREA WHITING MD Ot F17.210 NICOTINE DEPENDENCE, CIGARETTES, UNCOMPL 01/10/2019 ANDREA WHITING MD Ot G47.33 OBSTRUCTIVE SLEEP APNEA (ADULT) (PEDIATR 01/10/2019 ANDREA WHITING MD Ot I10 ESSENTIAL (PRIMARY) HYPERTENSION 01/10/2019 ANDREA WHITING MD Ot I21 .4 NON-ST ELEVATION (NSTEMI) MYOCARDIAL INF 01/10/2019 ANDREA WHITING MD Ot I45.10 UNSPECIFIED RIGHT BUNDLE-BRANCH BLOCK 01/10/2019 ANDREA WHITING MD Ot I95 .9 HYPOTENSION, UNSPECIFIED 01/10/2019 ANDREA WHITING MD Ot J18 .9 PNEUMONIA, UNSPECIFIED ORGANISM 01/10/2019 ANDREA WHITING MD Ot J44 .1 CHRONIC OBSTRUCTIVE PULMONARY DISEASE W 01/10/2019 ANDREA WHITING MD Ot J96.00 ACUTE RESPIRATORY FAILURE, UNSP W HYPOXI 01/10/2019 ANDREA WHITING MD Ot R65.20 SEVERE SEPSIS WITHOUT SEPTIC SHOCK 01/10/2019 ANDREA WHITING MD Ot Z85.820 PERSONAL HISTORY OF MALIGNANT MELANOMA O 01/11/2019 ANDREA WHITING MD Ot A41 .9 SEPSIS, UNSPECIFIED ORGANISM 01/11/2019 ANDREA WHITING MD Ot D72.829 ELEVATED WHITE BLOOD CELL COUNT, UNSPECI 01/11/2019 ANDREA WHITING MD Ot E11 .9 TYPE 2 DIABETES MELLITUS WITHOUT COMPLIC 01/11/2019 ANDREA WHITING MD Ot E87 .5 HYPERKALEMIA 01/11/2019 ANDREA WHITING MD Ot F17.210 NICOTINE DEPENDENCE, CIGARETTES, UNCOMPL 01/11/2019 ANDREA WHITING MD Ot G47.33 OBSTRUCTIVE SLEEP APNEA (ADULT) (PEDIATR 01/11/2019 ANDREA WHITING MD Ot I10 ESSENTIAL (PRIMARY) HYPERTENSION 01/11/2019 ANDREA WHITING MD Ot I21 .4 NON-ST ELEVATION (NSTEMI) MYOCARDIAL INF 01/11/2019 ANDREA WHITING MD Ot I45.10 UNSPECIFIED RIGHT BUNDLE-BRANCH BLOCK 01/11/2019 ANDREA WHITING MD Ot I95 .9 HYPOTENSION, UNSPECIFIED 01/11/2019 ANDREA WHITING MD Ot J18 .9 PNEUMONIA, UNSPECIFIED ORGANISM 01/11/2019 ANDREA WHITING MD Ot J44 .1 CHRONIC OBSTRUCTIVE PULMONARY DISEASE W 01/11/2019 ANDREA WHITING MD Ot J96.00 ACUTE RESPIRATORY FAILURE, UNSP W HYPOXI 01/11/2019 ANDREA WHITING MD Ot R65.20 SEVERE SEPSIS WITHOUT SEPTIC SHOCK 01/11/2019 ANDREA WHITING MD Ot Z85.820 PERSONAL HISTORY OF MALIGNANT MELANOMA O 01/11/2019 ANDREA WHITING MD Ot A41 .9 SEPSIS, UNSPECIFIED ORGANISM 01/11/2019 ANDREA WHITING MD Ot D72.829 ELEVATED WHITE BLOOD CELL COUNT, UNSPECI 01/11/2019 ANDREA WHITING MD Ot E11 .9 TYPE 2 DIABETES MELLITUS WITHOUT COMPLIC 01/11/2019 ANDREA WHITING MD Ot E87 .5 HYPERKALEMIA 01/11/2019 ANDREA WHITING MD Ot F17.210 NICOTINE DEPENDENCE, CIGARETTES, UNCOMPL 01/11/2019 ANDREA WHITING MD Ot G47.33 OBSTRUCTIVE SLEEP APNEA (ADULT) (PEDIATR 01/11/2019 ANDREA WHITING MD Ot I10 ESSENTIAL (PRIMARY) HYPERTENSION 01/11/2019 ANDREA WHITING MD Ot I21 .4 NON-ST ELEVATION (NSTEMI) MYOCARDIAL INF 01/11/2019 ANDREA WHITING MD Ot I45.10 UNSPECIFIED RIGHT BUNDLE-BRANCH BLOCK 01/11/2019 ANDREA WHITING MD Ot I95 .9 HYPOTENSION, UNSPECIFIED 01/11/2019 ANDREA WHITING MD Ot J18 .9 PNEUMONIA, UNSPECIFIED ORGANISM 01/11/2019 ANDREA WHITING MD Ot J44 .1 CHRONIC OBSTRUCTIVE PULMONARY DISEASE W 01/11/2019 ANDREA WHITING MD Ot J96.00 ACUTE RESPIRATORY FAILURE, UNSP W HYPOXI 01/11/2019 ANDREA WHITING MD Ot R65.20 SEVERE SEPSIS WITHOUT SEPTIC SHOCK 01/11/2019 ANDREA WHITING MD Ot Z85.820 PERSONAL HISTORY OF MALIGNANT MELANOMA O 01/11/2019 ANDREA WHITING MD Ot A41 .9 SEPSIS, UNSPECIFIED ORGANISM 01/11/2019 ANDREA WHITING MD Ot D72.829 ELEVATED WHITE BLOOD CELL COUNT, UNSPECI 01/11/2019 ANDREA WHITING MD Ot E11 .9 TYPE 2 DIABETES MELLITUS WITHOUT COMPLIC 01/11/2019 ANDREA WHITING MD Ot E87 .5 HYPERKALEMIA 01/11/2019 ANDREA WHITING MD Ot F17.210 NICOTINE DEPENDENCE, CIGARETTES, UNCOMPL 01/11/2019 ANDREA WHITING MD Ot G47.33 OBSTRUCTIVE SLEEP APNEA (ADULT) (PEDIATR 01/11/2019 ANDREA WHITING MD Ot I10 ESSENTIAL (PRIMARY) HYPERTENSION 01/11/2019 ANDREA WHITING MD Ot I21 .4 NON-ST ELEVATION (NSTEMI) MYOCARDIAL INF 01/11/2019 ANDREA WHITING MD Ot I45.10 UNSPECIFIED RIGHT BUNDLE-BRANCH BLOCK 01/11/2019 ANDREA WHITING MD Ot I95 .9 HYPOTENSION, UNSPECIFIED 01/11/2019 ANDREA WHITING MD Ot J18 .9 PNEUMONIA, UNSPECIFIED ORGANISM 01/11/2019 ANDREA WHITING MD Ot J44 .1 CHRONIC OBSTRUCTIVE PULMONARY DISEASE W 01/11/2019 ANDREA WHITING MD Ot J96.00 ACUTE RESPIRATORY FAILURE, UNSP W HYPOXI 01/11/2019 ANDREA WHITING MD Ot R65.20 SEVERE SEPSIS WITHOUT SEPTIC SHOCK 01/11/2019 ANDREA WHITING MD Ot Z85.820 PERSONAL HISTORY OF MALIGNANT MELANOMA O 01/12/2019 ANDREA WHITING MD Ot A41 .9 SEPSIS, UNSPECIFIED ORGANISM 01/12/2019 ANDREA WHITING MD Ot D72.829 ELEVATED WHITE BLOOD CELL COUNT, UNSPECI 01/12/2019 ANDREA WHITING MD Ot E11 .9 TYPE 2 DIABETES MELLITUS WITHOUT COMPLIC 01/12/2019 ANDREA WHITING MD Ot E87 .5 HYPERKALEMIA 01/12/2019 ANDREA WHITING MD Ot F17.210 NICOTINE DEPENDENCE, CIGARETTES, UNCOMPL 01/12/2019 ANDREA WHITING MD Ot G47.33 OBSTRUCTIVE SLEEP APNEA (ADULT) (PEDIATR 01/12/2019 ANDREA WHITING MD Ot I10 ESSENTIAL (PRIMARY) HYPERTENSION 01/12/2019 ANDREA WHITING MD Ot I21 .4 NON-ST ELEVATION (NSTEMI) MYOCARDIAL INF 01/12/2019 ANDREA WHITING MD Ot I45.10 UNSPECIFIED RIGHT BUNDLE-BRANCH BLOCK 01/12/2019 ANDREA WHITING MD Ot I95 .9 HYPOTENSION, UNSPECIFIED 01/12/2019 ANDREA WHITING MD Ot J18 .9 PNEUMONIA, UNSPECIFIED ORGANISM 01/12/2019 ANDREA WHITING MD Ot J44 .1 CHRONIC OBSTRUCTIVE PULMONARY DISEASE W 01/12/2019 ANDREA WHITING MD Ot J96.00 ACUTE RESPIRATORY FAILURE, UNSP W HYPOXI 01/12/2019 ANDREA WHITING MD Ot R65.20 SEVERE SEPSIS WITHOUT SEPTIC SHOCK 01/12/2019 ANDREA WHITING MD Ot Z85.820 PERSONAL HISTORY OF MALIGNANT MELANOMA O 01/12/2019 ANDREA WHITING MD Ot A41 .9 SEPSIS, UNSPECIFIED ORGANISM 01/12/2019 ANDREA WHITING MD Ot E11 .9 TYPE 2 DIABETES MELLITUS WITHOUT COMPLIC 01/12/2019 ANDREA WHITING MD Ot E66 .9 OBESITY, UNSPECIFIED 01/12/2019 ANDREA WHITING MD Ot E87 .2 ACIDOSIS 01/12/2019 ANDREA WHITING MD Ot E87 .5 HYPERKALEMIA 01/12/2019 ANDREA WHITING MD Ot F17.210 NICOTINE DEPENDENCE, CIGARETTES, UNCOMPL 01/12/2019 ANDREA WHITING MD Ot G47.33 OBSTRUCTIVE SLEEP APNEA (ADULT) (PEDIATR 01/12/2019 ANDREA WHITING MD Ot I10 ESSENTIAL (PRIMARY) HYPERTENSION 01/12/2019 ANDREA WHITING MD Ot I21 .4 NON-ST ELEVATION (NSTEMI) MYOCARDIAL INF 01/12/2019 ANDREA WHITING MD Ot I25.42 CORONARY ARTERY DISSECTION 01/12/2019 ANDREA WHITING MD Ot I26.99 OTHER PULMONARY EMBOLISM WITHOUT ACUTE C 01/12/2019 ANDREA WHITING MD Ot I45.10 UNSPECIFIED RIGHT BUNDLE-BRANCH BLOCK 01/12/2019 ANDREA WHITING MD Ot J18 .1 LOBAR PNEUMONIA, UNSPECIFIED ORGANISM 01/12/2019 ANDREA WHITING MD Ot J44 .1 CHRONIC OBSTRUCTIVE PULMONARY DISEASE W 01/12/2019 ANDREA WHITING MD Ot J96.00 ACUTE RESPIRATORY FAILURE, UNSP W HYPOXI 01/12/2019 ANDREA WHITING MD Ot R57 .0 CARDIOGENIC SHOCK 01/12/2019 ANDREA WHITING MD Ot R65.20 SEVERE SEPSIS WITHOUT SEPTIC SHOCK 01/12/2019 ANDREA WHITING MD Ot Z68.36 BODY MASS INDEX (BMI) 36.0-36.9, ADULT 01/12/2019 ANDREA WHITING MD Ot Z85.820 PERSONAL HISTORY OF MALIGNANT MELANOMA O 01/12/2019 ANDREA WHITING MD Ot A41.59 OTHER GRAM-NEGATIVE SEPSIS 01/12/2019 ANDREA WHITING MD Ot A41 .9 SEPSIS, UNSPECIFIED ORGANISM 01/12/2019 ANDREA WHITING MD Ot B37 .0 CANDIDAL STOMATITIS 01/12/2019 ANDREA WHITING MD Ot E11 .9 TYPE 2 DIABETES MELLITUS WITHOUT COMPLIC 01/12/2019 ANDREA WHITING MD Ot E66.01 MORBID (SEVERE) OBESITY DUE TO EXCESS CA 01/12/2019 ANDREA WHITING MD Ot E66 .9 OBESITY, UNSPECIFIED 01/12/2019 ANDREA WHITING MD Ot E87 .2 ACIDOSIS 01/12/2019 ANDREA WHITING MD Ot E87 .5 HYPERKALEMIA 01/12/2019 ANDREA WHITING MD Ot F17.210 NICOTINE DEPENDENCE, CIGARETTES, UNCOMPL 01/12/2019 ANDREA WHITING MD Ot G47.33 OBSTRUCTIVE SLEEP APNEA (ADULT) (PEDIATR 01/12/2019 ANDREA WHITING MD Ot G93.41 METABOLIC ENCEPHALOPATHY 01/12/2019 ANDREA WHITING MD Ot I10 ESSENTIAL (PRIMARY) HYPERTENSION 01/12/2019 ANDREA WHITING MD Ot I11 .0 HYPERTENSIVE HEART DISEASE WITH HEART FA 01/12/2019 ANDREA WHITING MD Ot I21 .4 NON-ST ELEVATION (NSTEMI) MYOCARDIAL INF 01/12/2019 ANDREA WHITING MD Ot I25.42 CORONARY ARTERY DISSECTION 01/12/2019 ANDREA WHITING MD Ot I26.99 OTHER PULMONARY EMBOLISM WITHOUT ACUTE C 01/12/2019 ANDREA WHITING MD Ot I45.10 UNSPECIFIED RIGHT BUNDLE-BRANCH BLOCK 01/12/2019 ANDREA WHITING MD Ot I50.31 ACUTE DIASTOLIC (CONGESTIVE) HEART FAILU 01/12/2019 ANDREA WHITING MD Ot J15 .6 PNEUMONIA DUE TO OTHER GRAM-NEGATIVE MARLENE 01/12/2019 ANDREA WHITING MD Ot J18 .1 LOBAR PNEUMONIA, UNSPECIFIED ORGANISM 01/12/2019 ANDREA WHITING MD Ot J44 .0 CHRONIC OBSTRUCTIVE PULMON DISEASE W ACU 01/12/2019 ANDREA WHITING MD Ot J44 .1 CHRONIC OBSTRUCTIVE PULMONARY DISEASE W 01/12/2019 ANDREA WHITING MD Ot J96.00 ACUTE RESPIRATORY FAILURE, UNSP W HYPOXI 01/12/2019 ANDREA WHITING MD Ot J98.11 ATELECTASIS 01/12/2019 ANDREA WHITING MD Ot R57 .0 CARDIOGENIC SHOCK 01/12/2019 ANDREA WHITING MD Ot R65.20 SEVERE SEPSIS WITHOUT SEPTIC SHOCK 01/12/2019 ANDREA WHITING MD Ot Z68.36 BODY MASS INDEX (BMI) 36.0-36.9, ADULT 01/12/2019 ANDREA WHITING MD Ot Z85.820 PERSONAL HISTORY OF MALIGNANT MELANOMA O 01/17/2019 DALJIT STALLWORTH DOI Ot A41.59 OTHER GRAM-NEGATIVE SEPSIS 01/17/2019 YOGESH STALLWORTH DO Ot B37.0 CANDIDAL STOMATITIS 01/17/2019 YOGESH STALLWORTH DO Ot E11.9 TYPE 2 DIABETES MELLITUS WITHOUT COMPLIC 01/17/2019 DALJIT STALLWORTH DOI Ot F17.21 0 NICOTINE DEPENDENCE, CIGARETTES, UNCOMPL 01/17/2019 DALJIT STALLWORTH DOI Ot G47.33 OBSTRUCTIVE SLEEP APNEA (ADULT) (PEDIATR 01/17/2019 BASIM LOWERY YOGESH Ot 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 01/17/2019 BASIM LOWERY YOGESH Ot G93.41 METABOLIC ENCEPHALOPATHY 01/17/2019 DALJIT SATLLWORTH DOI Ot I11.0 HYPERTENSIVE HEART DISEASE WITH HEART FA 01/17/2019 DALJIT STALLWORTH DOI Ot I21.4 NON-ST ELEVATION (NSTEMI) MYOCARDIAL INF 01/17/2019 DALJIT STALLWORTH DOI Ot I25.10 ATHSCL HEART DISEASE OF [place] CORONARY 01/17/2019 YOGESH STALLWORTH DO Ot I50.31 ACUTE DIASTOLIC (CONGESTIVE) HEART FAILU 01/17/2019 YOGESH STALLWORTH DO Ot J15.6 PNEUMONIA DUE TO OTHER GRAM-NEGATIVE MARLENE 01/17/2019 YOGESH STALLWORTH DO Ot J44.1 CHRONIC OBSTRUCTIVE PULMONARY DISEASE W 01/17/2019 YOGESH STALLWORTH DO Ot J98.11 ATELECTASIS 01/17/2019 YOGESH STALLWORTH DO Ot R65.20 SEVERE SEPSIS WITHOUT SEPTIC SHOCK 01/17/2019 YOGESH STALLWORTH DO Ot Z95.5 PRESENCE OF CORONARY ANGIOPLASTY IMPLANT 01/23/2019 YOGESH STALLWORTH DO Ot E11.9 TYPE 2 DIABETES MELLITUS WITHOUT COMPLIC 01/23/2019 YOGESH STALLWORTH DO Ot E66.9 OBESITY, UNSPECIFIED 01/23/2019 YOGESH STALLWORTH DO Ot E78.5 HYPERLIPIDEMIA, UNSPECIFIED 01/23/2019 YOGESH STALLWORTH DO Ot E87.2 ACIDOSIS 01/23/2019 YOGESH STALLWORTH DO Ot G47.33 OBSTRUCTIVE SLEEP APNEA (ADULT) (PEDIATR 01/23/2019 YOGESH STALLWORTH DO Ot I10 ESSENTIAL (PRIMARY) HYPERTENSION 01/23/2019 YOGESH STALLWORTH DO Ot I21.4 NON-ST ELEVATION (NSTEMI) MYOCARDIAL INF 01/23/2019 YOGESH STALLWORTH DO Ot I25.11 0 ATHSCL HEART DISEASE OF [place] COR ART W 01/23/2019 YOGESH STALLWORTH DO Ot J44.9 CHRONIC OBSTRUCTIVE PULMONARY DISEASE, U 01/23/2019 YOGESH STALLWORTH DO Ot J98.11 ATELECTASIS 01/23/2019 YOGESH STALLWORTH DO Ot Z68.33 BODY MASS INDEX (BMI) 33.0-33.9, ADULT 01/23/2019 YOGESH STALLWORTH DO Ot Z79.84 DETENTION (CURRENT) USE OF ORAL HYPOGLYC 01/23/2019 YOGESH STALLWORTH DO Ot Z85.82 0 PERSONAL HISTORY OF MALIGNANT MELANOMA O 01/23/2019 YOGESH STALLWORTH DO Ot Z87.01 PERSONAL HISTORY OF PNEUMONIA (RECURRENT 01/23/2019 YOGESH STALLWORTH DO Ot Z87.89 1 PERSONAL HISTORY OF NICOTINE DEPENDENCE 01/23/2019 YOGESH STALLWORTH DO Ot Z95.5 PRESENCE OF CORONARY ANGIOPLASTY IMPLANT 02/17/2019 MERRY TELLO, MIKHAIL Seaz Ot I25.119 ATHSCL HEART DISEASE OF [place] COR ART W 02/23/2019 MATTHEW JOE APRN Ot G47.10 HYPERSOMNIA, UNSPECIFIED 02/25/2019 MATTHEW JOE APRN Ot J18.9 PNEUMONIA, UNSPECIFIED ORGANISM 02/25/2019 MATTHEW JOE APRN Ot J30.9 ALLERGIC RHINITIS, UNSPECIFIED 02/25/2019 MATTHEW JOE APRN Ot J44.9 CHRONIC OBSTRUCTIVE PULMONARY DISEASE, U 02/25/2019 MATTHEW JOE APRN Ot J96.90 RESPIRATORY FAILURE, UNSP, UNSP W HYPOXI 03/05/2019 MERRY TELLO, MIKHAIL Saez Ot I25.119 ATHSCL HEART DISEASE OF [place] COR ART W 03/19/2019 MATTHEW JOE APRN Ot J18.9 PNEUMONIA, UNSPECIFIED ORGANISM 03/19/2019 MATTHEW JOE APRN Ot J30.9 ALLERGIC RHINITIS, UNSPECIFIED 03/19/2019 MATTHEW JOE APRN Ot J44.9 CHRONIC OBSTRUCTIVE PULMONARY DISEASE, U 03/19/2019 MATTHEW JOE APRN Ot J96.90 RESPIRATORY FAILURE, UNSP, UNSP W HYPOXI 03/21/2019 DALJIT STALLWORTH DOI Ot D72.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 REACTION 03/21/2019 BASIM LOWERY YOGESH Ot E11.9 TYPE 2 DIABETES MELLITUS WITHOUT COMPLIC 03/21/2019 BASIM LOWERY YOGESH Ot E66.9 OBESITY, UNSPECIFIED 03/21/2019 BASIM LOWERY YOGESH Ot E78.5 HYPERLIPIDEMIA, UNSPECIFIED 03/21/2019 BASIM LOWERY YOGESH Ot G47.33 OBSTRUCTIVE SLEEP APNEA (ADULT) (PEDIATR 03/21/2019 BASIM LOWERY YOGESH Ot I11.0 HYPERTENSIVE HEART DISEASE WITH HEART FA 03/21/2019 BASIM LOWERY YOGESH Ot I25.10 ATHSCL HEART DISEASE OF [place] CORONARY 03/21/2019 BASIM LOWERY YOGESH Ot 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 0 ATHSCL HEART DISEASE OF [place] COR ART W 03/21/2019 BASIM LOWERY YOGESH Ot I25.2 OLD MYOCARDIAL INFARCTION 03/21/2019 BASIM LOWERY YOGESH Ot I50.31 ACUTE DIASTOLIC (CONGESTIVE) HEART FAILU 03/21/2019 BASIM LOWERY YOGESH Ot I50.9 HEART FAILURE, UNSPECIFIED 03/21/2019 BASIM LOWERY YOGESH Ot J44.1 CHRONIC OBSTRUCTIVE PULMONARY DISEASE W 03/21/2019 YOGESH STALLWORTH DO Ot J96.01 ACUTE RESPIRATORY FAILURE WITH HYPOXIA 03/21/2019 YOGESH STALLWORTH DO Ot R07.89 OTHER CHEST PAIN 03/21/2019 YOGESH STALLWORTH DO Ot R53.81 OTHER MALAISE 03/21/2019 YOGESH STALLWORTH DO Ot R79.89 OTHER SPECIFIED ABNORMAL FINDINGS OF BLO 03/21/2019 YOGESH STALLWORTH DO Ot T38.0X 5A ADVERSE EFFECT OF GLUCOCORT/SYNTH ANALOG 03/21/2019 YOGESH STALLWORTH DO Ot Z68.33 BODY MASS INDEX (BMI) 33.0-33.9, ADULT 03/21/2019 YOGESH STALLWORTH DO Ot Z79.02 DETENTION (CURRENT) USE OF ANTITHROMBOTI 03/21/2019 YOGESH STALLWORTH DO Ot Z79.84 DETENTION (CURRENT) USE OF ORAL HYPOGLYC 03/21/2019 YOGESH STALLWORTH DO Ot Z85.82 0 PERSONAL HISTORY OF MALIGNANT MELANOMA O 03/21/2019 YOGESH STALLWORTH DO Ot Z87.01 PERSONAL HISTORY OF PNEUMONIA (RECURRENT 03/21/2019 YOGESH STALLWORTH DO Ot Z87.89 1 PERSONAL HISTORY OF NICOTINE DEPENDENCE 03/21/2019 YOGESH STALLWORTH DO Ot Z95.5 PRESENCE OF CORONARY ANGIOPLASTY IMPLANT 05/02/2019 JOSE LUND MD Ot E11. 9 TYPE 2 DIABETES MELLITUS WITHOUT COMPLIC 05/02/2019 JOSE LUND MD Ot G47. 30 SLEEP APNEA, UNSPECIFIED 05/02/2019 JOSE LUND MD Ot I11. 0 HYPERTENSIVE HEART DISEASE WITH HEART FA 05/02/2019 JOSE LUND MD Ot I25. 10 ATHSCL HEART DISEASE OF [place] CORONARY 05/02/2019 JOSE LUND MD Ot I50. 9 HEART FAILURE, UNSPECIFIED 05/02/2019 JOSE LUND MD Ot J44. 1 CHRONIC OBSTRUCTIVE PULMONARY DISEASE W 05/02/2019 JOSE LUND MD Ot R06. 02 SHORTNESS OF BREATH 05/02/2019 JOSE LUND MD Ot Z79. 82 DIMENSIONAL INSPECTOR (CURRENT) USE OF ASPIRIN 05/02/2019 JOSE LUND MD Ot Z79. 84 DIMENSIONAL INSPECTOR (CURRENT) USE OF ORAL HYPOGLYC 05/02/2019 JOSE LUND MD Ot Z82. 49 FAMILY HX OF ISCHEM HEART DIS AND OTH DI 05/02/2019 JOSE LUND MD Ot Z85.828 PERSONAL HISTORY OF OTHER MALIGNANT NEOP 05/02/2019 JOSE LUND MD Ot Z87.891 PERSONAL HISTORY OF NICOTINE DEPENDENCE 05/02/2019 JOSE LUND MD Ot Z90.710 ACQUIRED ABSENCE OF BOTH CERVIX AND UTER 05/02/2019 JOSE LUND MD Ot Z95. 1 PRESENCE OF AORTOCORONARY BYPASS GRAFT 05/02/2019 JOSE LUND MD Ot Z95. 5 PRESENCE OF CORONARY ANGIOPLASTY IMPLANT 06/13/2019 ERIN SANTIAGO MD Ot E11. 9 TYPE 2 DIABETES MELLITUS WITHOUT COMPLIC 06/13/2019 ERIN SANTIAGO MD Ot E66. 09 OTHER OBESITY DUE TO EXCESS CALORIES 06/13/2019 ERIN SANTIAGO MD Ot E78. 5 HYPERLIPIDEMIA, UNSPECIFIED 06/13/2019 ERIN SANTIAGO MD Ot G47. 30 SLEEP APNEA, UNSPECIFIED 06/13/2019 ERIN SANTIAGO MD Ot I10 ESSENTIAL (PRIMARY) HYPERTENSION 06/13/2019 ERIN SANTIAGO MD Ot I25. 10 ATHSCL HEART DISEASE OF [place] CORONARY 06/13/2019 ERIN SANTIAGO MD Ot I25. 2 OLD MYOCARDIAL INFARCTION 06/13/2019 ERIN SANTIAGO MD Ot I48. 0 PAROXYSMAL ATRIAL FIBRILLATION 06/13/2019 ERIN SANTIAGO MD Ot J30. 2 OTHER SEASONAL ALLERGIC RHINITIS 06/13/2019 ERIN SANTIAGO MD Ot J44. 9 CHRONIC OBSTRUCTIVE PULMONARY DISEASE, U 06/13/2019 ERIN SANTIAGO MD Ot Z68. 35 BODY MASS INDEX (BMI) 35.0-35.9, ADULT 06/13/2019 ERIN SANTIAGO MD Ot Z85.820 PERSONAL HISTORY OF MALIGNANT MELANOMA O 06/13/2019 ERIN SANTIAGO MD Ot Z87.891 PERSONAL HISTORY OF NICOTINE DEPENDENCE 06/13/2019 ERIN SANTIAGO MD Ot Z95. 1 PRESENCE OF AORTOCORONARY BYPASS GRAFT 06/13/2019 ERIN SANTIAGO MD Ot Z95. 5 PRESENCE OF CORONARY ANGIOPLASTY IMPLANT 06/13/2019 ERIN SANTIAGO MD Ot Z98.890 OTHER SPECIFIED POSTPROCEDURAL STATES 06/14/2019 ERIN SANTIAGO MD Ot E11. 9 TYPE 2 DIABETES MELLITUS WITHOUT COMPLIC 06/14/2019 ERIN SANTIAGO MD Ot E66. 09 OTHER OBESITY DUE TO EXCESS CALORIES 06/14/2019 ERIN SANTIAGO MD Ot E78. 5 HYPERLIPIDEMIA, UNSPECIFIED 06/14/2019 ERIN SANTIAGO MD Ot G47. 30 SLEEP APNEA, UNSPECIFIED 06/14/2019 ERIN SANTIAGO MD Ot I10 ESSENTIAL (PRIMARY) HYPERTENSION 06/14/2019 ERIN SANTIAGO MD Ot I25. 10 ATHSCL HEART DISEASE OF [place] CORONARY 06/14/2019 ERIN SANTIAGO MD Ot I25. 2 OLD MYOCARDIAL INFARCTION 06/14/2019 ERIN SANTIAGO MD Ot I48. 0 PAROXYSMAL ATRIAL FIBRILLATION 06/14/2019 ERIN SANTIAGO MD Ot J30. 2 OTHER SEASONAL ALLERGIC RHINITIS 06/14/2019 ERIN SANTIAGO MD Ot J44. 9 CHRONIC OBSTRUCTIVE PULMONARY DISEASE, U 06/14/2019 ERIN SANTIAGO MD Ot Z68. 35 BODY MASS INDEX (BMI) 35.0-35.9, ADULT 06/14/2019 ERIN SANTIAGO MD Ot Z85.820 PERSONAL HISTORY OF MALIGNANT MELANOMA O 06/14/2019 ERIN SANTIAGO MD Ot Z87.891 PERSONAL HISTORY OF NICOTINE DEPENDENCE 06/14/2019 ERIN SANTIAGO MD Ot Z95. 1 PRESENCE OF AORTOCORONARY BYPASS GRAFT 06/14/2019 ERIN SANTIAGO MD Ot Z95. 5 PRESENCE OF CORONARY ANGIOPLASTY IMPLANT 06/14/2019 ERIN SANTIAGO MD Ot Z98.890 OTHER SPECIFIED POSTPROCEDURAL STATES 06/14/2019 ERIN SANTIAGO MD Ot E11. 9 TYPE 2 DIABETES MELLITUS WITHOUT COMPLIC 06/14/2019 ERIN SANTIAGO MD Ot E66. 09 OTHER OBESITY DUE TO EXCESS CALORIES 06/14/2019 ERIN SANTIAGO MD Ot E78. 5 HYPERLIPIDEMIA, UNSPECIFIED 06/14/2019 ERIN SANTIAGO MD Ot G47. 30 SLEEP APNEA, UNSPECIFIED 06/14/2019 ERIN SANTIAGO MD Ot I10 ESSENTIAL (PRIMARY) HYPERTENSION 06/14/2019 ERIN SANTIAGO MD Ot I25. 10 ATHSCL HEART DISEASE OF [place] CORONARY 06/14/2019 ERIN SANTIAGO MD Ot I25. 2 OLD MYOCARDIAL INFARCTION 06/14/2019 ERIN SANTIAGO MD Ot I34. 0 NONRHEUMATIC MITRAL (VALVE) INSUFFICIENC 06/14/2019 ERIN SANTIAGO MD Ot I48. 0 PAROXYSMAL ATRIAL FIBRILLATION 06/14/2019 ERIN SANTIAGO MD, Ot J30. 2 OTHER SEASONAL ALLERGIC RHINITIS 06/14/2019 ERIN SANTIAGO MD Ot J44. 9 CHRONIC OBSTRUCTIVE PULMONARY DISEASE, U 06/14/2019 ERIN SANTIAGO MD Ot Z68. 35 BODY MASS INDEX (BMI) 35.0-35.9, ADULT 06/14/2019 ERIN SANTIAGO MD Ot Z79. 4 DIMENSIONAL INSPECTOR (CURRENT) USE OF INSULIN 06/14/2019 ERIN SANTIAGO MD Ot Z85.820 PERSONAL HISTORY OF MALIGNANT MELANOMA O 06/14/2019 ERIN SANTIAGO MD Ot Z87.891 PERSONAL HISTORY OF NICOTINE DEPENDENCE 06/14/2019 ERIN SANTIAGO MD Ot Z95. 1 PRESENCE OF AORTOCORONARY BYPASS GRAFT 06/14/2019 ERIN SANTIAGO MD Ot Z95. 5 PRESENCE OF CORONARY ANGIOPLASTY IMPLANT 06/14/2019 ERIN SANTIAGO MD Ot Z98.890 OTHER SPECIFIED POSTPROCEDURAL STATES 06/18/2019 ERIN SANTIAGO MD Ot E11. 9 TYPE 2 DIABETES MELLITUS WITHOUT COMPLIC 06/18/2019 ERIN SANTIAGO MD Ot E66. 09 OTHER OBESITY DUE TO EXCESS CALORIES 06/18/2019 ERIN SANTIAGO MD Ot E78. 5 HYPERLIPIDEMIA, UNSPECIFIED 06/18/2019 ERIN SANTIAGO MD Ot G47. 30 SLEEP APNEA, UNSPECIFIED 06/18/2019 ERIN SANTIAGO MD Ot I10 ESSENTIAL (PRIMARY) HYPERTENSION 06/18/2019 ERIN SANTIAGO MD Ot I25. 10 ATHSCL HEART DISEASE OF [place] CORONARY 06/18/2019 ERIN SANTIAGO MD Ot I25. 2 OLD MYOCARDIAL INFARCTION 06/18/2019 ERIN SANTIAGO MD Ot I34. 0 NONRHEUMATIC MITRAL (VALVE) INSUFFICIENC 06/18/2019 ERIN SANTIAGO MD Ot I48. 0 PAROXYSMAL ATRIAL FIBRILLATION 06/18/2019 ERIN SANTIAGO MD, Ot J30. 2 OTHER SEASONAL ALLERGIC RHINITIS 06/18/2019 ERIN SANTIAGO MD Ot J44. 9 CHRONIC OBSTRUCTIVE PULMONARY DISEASE, U 06/18/2019 ERIN SANTIAGO MD Ot Z68. 35 BODY MASS INDEX (BMI) 35.0-35.9, ADULT 06/18/2019 ERIN SANTIAGO MD Ot Z79. 4 DIMENSIONAL INSPECTOR (CURRENT) USE OF INSULIN 06/18/2019 ERIN SANTIAGO MD Ot Z85.820 PERSONAL HISTORY OF MALIGNANT MELANOMA O 06/18/2019 ERIN SANTIAGO MD Ot Z87.891 PERSONAL HISTORY OF NICOTINE DEPENDENCE 06/18/2019 ERIN SANTIAGO MD Ot Z95. 1 PRESENCE OF AORTOCORONARY BYPASS GRAFT 06/18/2019 ERIN SANTIAGO MD Ot Z95. 5 PRESENCE OF CORONARY ANGIOPLASTY IMPLANT 06/18/2019 ERIN SANTIAGO MD Ot Z98.890 OTHER SPECIFIED POSTPROCEDURAL STATES 06/18/2019 ERIN SANTIAGO MD Ot E11. 9 TYPE 2 DIABETES MELLITUS WITHOUT COMPLIC 06/18/2019 ERIN SANTIAGO MD Ot E66. 09 OTHER OBESITY DUE TO EXCESS CALORIES 06/18/2019 ERIN SANTIAGO MD Ot E78. 5 HYPERLIPIDEMIA, UNSPECIFIED 06/18/2019 ERIN SANTIAGO MD Ot G47. 30 SLEEP APNEA, UNSPECIFIED 06/18/2019 ERIN SANTIAGO MD Ot I10 ESSENTIAL (PRIMARY) HYPERTENSION 06/18/2019 ERIN SANTIAGO MD Ot I25. 10 ATHSCL HEART DISEASE OF [place] CORONARY 06/18/2019 ERIN SANTIAGO MD Ot I25. 2 OLD MYOCARDIAL INFARCTION 06/18/2019 ERIN SANTIAGO MD Ot I34. 0 NONRHEUMATIC MITRAL (VALVE) INSUFFICIENC 06/18/2019 ERIN SANTIAGO MD Ot I48. 0 PAROXYSMAL ATRIAL FIBRILLATION 06/18/2019 ERIN SANTIAGO MD Ot J30. 2 OTHER SEASONAL ALLERGIC RHINITIS 06/18/2019 ERIN SANTIAGO MD, Ot J44. 9 CHRONIC OBSTRUCTIVE PULMONARY DISEASE, U 06/18/2019 ERIN SANTIAGO MD Ot Z68. 35 BODY MASS INDEX (BMI) 35.0-35.9, ADULT 06/18/2019 ERIN SANTIAGO MD Ot Z79. 4 DIMENSIONAL INSPECTOR (CURRENT) USE OF INSULIN 06/18/2019 ERIN SANTIAGO MD Ot Z85.820 PERSONAL HISTORY OF MALIGNANT MELANOMA O 06/18/2019 ERIN SANTIAGO MD Ot Z87.891 PERSONAL HISTORY OF NICOTINE DEPENDENCE 06/18/2019 ERIN SANTIAGO MD Ot Z95. 1 PRESENCE OF AORTOCORONARY BYPASS GRAFT 06/18/2019 ERIN SANTIAGO MD Ot Z95. 5 PRESENCE OF CORONARY ANGIOPLASTY IMPLANT 06/18/2019 ERIN SANTIAGO MD Ot Z98.890 OTHER SPECIFIED POSTPROCEDURAL STATES 06/18/2019 ERIN SANTIAGO MD Ot E11. 9 TYPE 2 DIABETES MELLITUS WITHOUT COMPLIC 06/18/2019 ERIN SANTIAGO MD Ot E66. 09 OTHER OBESITY DUE TO EXCESS CALORIES 06/18/2019 ERIN SANTIAGO MD Ot E78. 5 HYPERLIPIDEMIA, UNSPECIFIED 06/18/2019 ERIN SANTIAGO MD Ot G47. 30 SLEEP APNEA, UNSPECIFIED 06/18/2019 ERIN SANTIAGO MD Ot I10 ESSENTIAL (PRIMARY) HYPERTENSION 06/18/2019 ERIN SANTIAGO MD Ot I25. 10 ATHSCL HEART DISEASE OF [place] CORONARY 06/18/2019 ERIN SANTIAGO MD Ot I25. 2 OLD MYOCARDIAL INFARCTION 06/18/2019 ERIN SANTIAGO MD Ot I34. 0 NONRHEUMATIC MITRAL (VALVE) INSUFFICIENC 06/18/2019 ERIN SANTIAGO MD Ot I48. 0 PAROXYSMAL ATRIAL FIBRILLATION 06/18/2019 ERIN SANTIAGO MD Ot J30. 2 OTHER SEASONAL ALLERGIC RHINITIS 06/18/2019 ERIN SANTIAGO MD Ot J44. 9 CHRONIC OBSTRUCTIVE PULMONARY DISEASE, U 06/18/2019 ERIN SANTIAGO MD Ot Z68. 35 BODY MASS INDEX (BMI) 35.0-35.9, ADULT 06/18/2019 ERIN SANTIAGO MD Ot Z79. 4 DIMENSIONAL INSPECTOR (CURRENT) USE OF INSULIN 06/18/2019 ERIN SANTIAGO MD Ot Z85.820 PERSONAL HISTORY OF MALIGNANT MELANOMA O 06/18/2019 ERIN SANTIAGO MD Ot Z87.891 PERSONAL HISTORY OF NICOTINE DEPENDENCE 06/18/2019 JACK MD, BASHAR J Ot Z95. 1 PRESENCE OF AORTOCORONARY BYPASS GRAFT 06/18/2019 ERIN SANTIAGO MD Ot Z95. 5 PRESENCE OF CORONARY ANGIOPLASTY IMPLANT 06/18/2019 ERIN SANTIAGO MD Ot Z98.890 OTHER SPECIFIED POSTPROCEDURAL STATES 06/18/2019 ERIN SANTIAGO MD Ot E11. 9 TYPE 2 DIABETES MELLITUS WITHOUT COMPLIC 06/18/2019 ERIN SANTIAGO MD Ot E66. 09 OTHER OBESITY DUE TO EXCESS CALORIES 06/18/2019 ERIN SANTIAGO MD Ot E78. 5 HYPERLIPIDEMIA, UNSPECIFIED 06/18/2019 ERIN SANTIAGO MD Ot G47. 30 SLEEP APNEA, UNSPECIFIED 06/18/2019 ERIN SANTIAGO MD Ot I10 ESSENTIAL (PRIMARY) HYPERTENSION 06/18/2019 ERIN SANTIAGO MD Ot I25. 10 ATHSCL HEART DISEASE OF [place] CORONARY 06/18/2019 ERIN SANTIAGO MD Ot I25. 2 OLD MYOCARDIAL INFARCTION 06/18/2019 ERIN SANTIAGO MD Ot I34. 0 NONRHEUMATIC MITRAL (VALVE) INSUFFICIENC 06/18/2019 ERIN SANTIAGO MD Ot I48. 0 PAROXYSMAL ATRIAL FIBRILLATION 06/18/2019 ERIN SANTIAGO MD Ot J30. 2 OTHER SEASONAL ALLERGIC RHINITIS 06/18/2019 ERIN SANTIAGO MD Ot J44. 9 CHRONIC OBSTRUCTIVE PULMONARY DISEASE, U 06/18/2019 ERIN SANTIAGO MD Ot Z68. 35 BODY MASS INDEX (BMI) 35.0-35.9, ADULT 06/18/2019 ERIN SANTIAGO MD Ot Z79. 4 DETENTION (CURRENT) USE OF INSULIN 06/18/2019 ERIN SANTIAGO MD Ot Z85.820 PERSONAL HISTORY OF MALIGNANT MELANOMA O 06/18/2019 ERIN SANTIAGO MD Ot Z87.891 PERSONAL HISTORY OF NICOTINE DEPENDENCE 06/18/2019 ERIN SANTIAGO MD Ot Z95. 1 PRESENCE OF AORTOCORONARY BYPASS GRAFT 06/18/2019 ERIN SANTIAGO MD Ot Z95. 5 PRESENCE OF CORONARY ANGIOPLASTY IMPLANT 06/18/2019 ERIN SANTIAGO MD Ot Z98.890 OTHER SPECIFIED POSTPROCEDURAL STATES 06/25/2019 ERIN SANTIAGO MD Ot I48. 0 PAROXYSMAL ATRIAL FIBRILLATION 06/25/2019 JACK TELLO, ERIN Nicholson Ot Z51. 81 ENCOUNTER FOR THERAPEUTIC DRUG LEVEL MON 07/02/2019 SOLEDAD TELLO, MARYSOL Greene Ot R30.0 DYSURIA 07/08/2019 COLTON TELLO, AMINAH Greene Ot I48. 0 PAROXYSMAL ATRIAL FIBRILLATION 07/17/2019 JACK TELLO, ERIN Nicholson Ot I48. 0 PAROXYSMAL ATRIAL FIBRILLATION 07/17/2019 JACK TELLO, ERIN Nicholson Ot Z51. 81 ENCOUNTER FOR THERAPEUTIC DRUG LEVEL MON 07/22/2019 SOLEDAD TELLO, MARYSOL Greene Ot R30.0 DYSURIA 08/25/2019 YASMIN WHITE DO Ot E11. 9 TYPE 2 DIABETES MELLITUS WITHOUT COMPLIC 08/25/2019 YASMIN WHITE DO Ot I11. 0 HYPERTENSIVE HEART DISEASE WITH HEART FA 08/25/2019 YASMIN WHITE DO Ot I25. 10 ATHSCL HEART DISEASE OF [place] CORONARY 08/25/2019 YASMIN WHITE DO Ot I25. 2 OLD MYOCARDIAL INFARCTION 08/25/2019 YASMIN WHITE DO Ot I50. 9 HEART FAILURE, UNSPECIFIED 08/25/2019 YASMIN WHITE DO Ot J44. 9 CHRONIC OBSTRUCTIVE PULMONARY DISEASE, U 08/25/2019 YASMIN WHITE DO Ot M25.512 PAIN IN LEFT SHOULDER 08/25/2019 YASMIN WHITE DO Ot S42.201A UNSP FRACTURE OF UPPER END OF RIGHT BARB 08/25/2019 YASMIN WHITE DO Ot S42.202A UNSP FRACTURE OF UPPER END OF LEFT HUMER 08/25/2019 YASMIN WHITE DO Ot S42.302A UNSP FRACTURE OF SHAFT OF HUMERUS, LEFT 08/25/2019 YASMIN WHITE DO Ot W01.0XXA FALL SAME LEV FROM SLIP/TRIP W/O STRIKE 08/25/2019 YASMIN WHITE DO Ot Y93. K1 ACTIVITY, WALKING AN ANIMAL 08/25/2019 YASMIN WHITE DO Ot Z23 ENCOUNTER FOR IMMUNIZATION 08/25/2019 YASMIN WHITE DO Ot Z79. 01 DIMENSIONAL INSPECTOR (CURRENT) USE OF ANTICOAGULANT 08/25/2019 YASMIN WHITE DO Ot Z79. 4 DIMENSIONAL INSPECTOR (CURRENT) USE OF INSULIN 08/25/2019 YASMIN WHITE DO Ot Z79. 51 DETENTION (CURRENT) USE OF INHALED STERO 08/25/2019 YASMIN WHITE DO Ot Z79. 82 DETENTION (CURRENT) USE OF ASPIRIN 08/25/2019 YASMIN WHITE DO Ot Z82. 49 FAMILY HX OF ISCHEM HEART DIS AND OTH DI 08/25/2019 YASMIN WHITE DO Ot Z85.820 PERSONAL HISTORY OF MALIGNANT MELANOMA O 08/25/2019 YASMIN WHITE DO Ot Z87.891 PERSONAL HISTORY OF NICOTINE DEPENDENCE 08/25/2019 YASMIN WHITE DO Ot Z90.710 ACQUIRED ABSENCE OF BOTH CERVIX AND UTER 08/25/2019 YASMIN WHITE DO Ot Z95. 5 PRESENCE OF CORONARY ANGIOPLASTY IMPLANT 08/28/2019 YASMIN WHITE DO Ot E11. 9 TYPE 2 DIABETES MELLITUS WITHOUT COMPLIC 08/28/2019 YASMNI WHITE DO Ot I11. 0 HYPERTENSIVE HEART DISEASE WITH HEART FA 08/28/2019 YASMIN WHITE DO Ot I25. 10 ATHSCL HEART DISEASE OF [place] CORONARY 08/28/2019 YASMIN WHITE DO Ot I25. 2 OLD MYOCARDIAL INFARCTION 08/28/2019 YASMIN WHITE DO Ot I50. 9 HEART FAILURE, UNSPECIFIED 08/28/2019 YASMIN WHITE DO Ot J44. 9 CHRONIC OBSTRUCTIVE PULMONARY DISEASE, U 08/28/2019 YASMIN WHITE DO Ot M25.512 PAIN IN LEFT SHOULDER 08/28/2019 YASMIN WHITE DO Ot S42.201A UNSP FRACTURE OF UPPER END OF RIGHT BARB 08/28/2019 YASMIN WHITE DO Ot S42.202A UNSP FRACTURE OF UPPER END OF LEFT HUMER 08/28/2019 YASMIN WHITE DO Ot S42.302A UNSP FRACTURE OF SHAFT OF HUMERUS, LEFT 08/28/2019 AYSMIN WHITE DO Ot W01.0XXA FALL SAME LEV FROM SLIP/TRIP W/O STRIKE 08/28/2019 YASMIN WHITE DO Ot Y93. K1 ACTIVITY, WALKING AN ANIMAL 08/28/2019 YASMIN WHITE DO Ot Z23 ENCOUNTER FOR IMMUNIZATION 08/28/2019 YASMIN WHITE DO Ot Z79. 01 DETENTION (CURRENT) USE OF ANTICOAGULANT 08/28/2019 YASMIN WHITE DO Ot Z79. 4 DETENTION (CURRENT) USE OF INSULIN 08/28/2019 YASMIN WHITE DO Ot Z79. 51 DETENTION (CURRENT) USE OF INHALED STERO 08/28/2019 YASMIN WHITE DO Ot Z79. 82 DIMENSIONAL INSPECTOR (CURRENT) USE OF ASPIRIN 08/28/2019 YASMIN WHITE DO Ot Z82. 49 FAMILY HX OF ISCHEM HEART DIS AND OTH DI 08/28/2019 YASMIN WHITE DO Ot Z85.820 PERSONAL HISTORY OF MALIGNANT MELANOMA O 08/28/2019 YASMIN WHITE DO Ot Z87.891 PERSONAL HISTORY OF NICOTINE DEPENDENCE 08/28/2019 YASMIN WHITE DO Ot Z90.710 ACQUIRED ABSENCE OF BOTH CERVIX AND UTER 08/28/2019 YASMIN WHITE DO Ot Z95. 5 PRESENCE OF CORONARY ANGIOPLASTY IMPLANT 09/14/2019 ERIN SANTIAGO MD Ot I48. 0 PAROXYSMAL ATRIAL FIBRILLATION 09/14/2019 ERIN SANTIAGO MD Ot Z51. 81 ENCOUNTER FOR THERAPEUTIC DRUG LEVEL MON 09/14/2019 ERIN SANTIAGO MD Ot Z79. 01 DIMENSIONAL INSPECTOR (CURRENT) USE OF ANTICOAGULANT 09/15/2019 ERIN SANTIAGO MD Ot I48. 0 PAROXYSMAL ATRIAL FIBRILLATION 09/15/2019 ERIN SANTIAGO MD Ot Z51. 81 ENCOUNTER FOR THERAPEUTIC DRUG LEVEL MON 09/15/2019 ERIN SANTIAGO MD Ot Z79. 01 DIMENSIONAL INSPECTOR (CURRENT) USE OF ANTICOAGULANT 09/20/2019 ERIN SANTIAGO MD Ot I48. 0 PAROXYSMAL ATRIAL FIBRILLATION 09/20/2019 ERIN SANTIAGO MD Ot Z51. 81 ENCOUNTER FOR THERAPEUTIC DRUG LEVEL MON 09/20/2019 ERIN SANTIAGO MD Ot Z79. 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 9 TYPE 2 DIABETES MELLITUS WITHOUT COMPLIC 03/10/2020 ERIN SANTIAGO MD Ot E78. 2 MIXED HYPERLIPIDEMIA 03/10/2020 ERIN SANTIAGO MD Ot G47. 10 HYPERSOMNIA, UNSPECIFIED 03/10/2020 ERIN SANTIAGO MD Ot G47. 33 OBSTRUCTIVE SLEEP APNEA (ADULT) (PEDIATR 03/10/2020 ERIN SANTIAGO MD Ot I08. 1 RHEUMATIC DISORDERS OF BOTH MITRAL AND T 03/10/2020 ERIN SANTIAGO MD Ot E11. 9 TYPE 2 DIABETES MELLITUS WITHOUT COMPLIC 03/10/2020 ERIN SANTIAGO MD Ot E78. 2 MIXED HYPERLIPIDEMIA 03/10/2020 ERIN SANTIAGO MD Ot G47. 10 HYPERSOMNIA, UNSPECIFIED 03/10/2020 ERIN SANTIAGO MD Ot G47. 33 OBSTRUCTIVE SLEEP APNEA (ADULT) (PEDIATR 03/10/2020 ERIN SANTIAGO MD Ot I51. 89 OTHER ILL-DEFINED HEART DISEASES Procedures Code Description Performed By Per formed On [id number] DI LATION OF 1 COR ART WITH 2 DRUG-ELUT, 01/02/2019 [id number] IN SERTION OF ENDOTRACHEAL AIRWAY INTO TR 01/02/2019 [id number] ME ASURE OF CARDIAC SAMPL PRESSURE, L H 01/02/2019 [id number] RE SPIRATORY VENTILATION, 24- 96 CONSECUTI 01/02/2019 [id number] RE SPIRATORY VENTILATION, GREATER THAN 96 01/02/2019 [id number] FL UOROSCOPY OF MULT COR ART USING L OSM 01/02/2019 [id number] FL UOROSCOPY OF LEFT HEART USING LOW OSMO 01/02/2019 Results Test Result Range Complete blood count (CBC) with automate d white blood cell (WBC) differential - 01/01/19 16:59 Blood leukocytes automated count (number/volume) 19.0 10*3/uL 4.3-11.0 Blood erythrocytes automated count (number/volume) 4.90 10*6/uL 4.35-5.85 Venous blood hemoglobin measurement (mass/volume) 15.7 g/dL 11.5-16.0 Blood hematocrit (volume fraction) 47 % 35-52 Automated erythrocyte mean corpuscular volume 96 [ foz_us] 80-99 Automated erythrocyte mean corpuscular h emoglobin (mass per erythrocyte) 32 pg 25-34 Automated erythrocyte mean corpuscular h emoglobin concentration measurement (mass/volume) 34 g/dL 32-36 Automated erythrocyte distribution width ratio 12. 5 % 10.0- 14.5 Automated blood platelet count (count/volume) 293 10*3/uL 130-400 Automated blood platelet mean volume measurement 10.1 [foz_us] 7.4-10.4 Automated blood neutrophils/100 leukocytes 70 % 42-75 Automated blood lymphocytes/100 leukocytes 21 % 12-44 Blood monocytes/100 leukocytes 7 % 0-12 Automated blood eosinophils/100 leukocytes 1 % 0-10 Automated blood basophils/100 leukocytes 1 % 0-10 Blood neutrophils automated count (number/volume) 13.2 10*3 1.8-7.8 Blood lymphocytes automated count (number/volume) 4.0 10*3 1.0-4.0 Blood monocytes automated count (number/volume) 1. 4 10*3 0.0-1.0 Automated eosinophil count 0.3 10*3/uL 0 .0-0.3 Automated blood basophil count (count/volume) 0.1 10*3/uL 0.0-0.1 Blood manual differential performed dete ction - 01/01/19 16:59 Blood monocytes/100 leukocytes 5 % NRG Manual blood segmented neutrophils/100 leukocytes 74 % NRG Manual blood lymphocytes/100 leukocytes 15 % NRG Manual eosinophils/100 leukocytes in nose 1 % NRG Blood lymphocytes variant/100 leukocytes 5 % NRG Blood erythrocyte morphology finding identification NORMAL NRG PT panel in platelet poor plasma by coag ulation assay - 01/01/19 16:59 Prothrombin time (PT) in platelet poor plasma by coagu lation assay 12.9 s 12.2-14.7 INR in platelet poor plasma or blood by coagulation as say 0.9 0.8-1.4 Activated partial thromboplastin time (a PTT) in platelet poor plasma bycoagulation assay - 01/01/19 16:59 Activated partial thromboplastin time (a PTT) in platelet poor plasma bycoagulation assay 36 s 24-35 Comprehensive metabolic panel - 01/01/19 16:59 Serum or plasma sodium measurement (moles/volume) 139 mmol/L 135-145 Serum or plasma potassium measurement (moles/volume) 3.8 mmol/L 3.6-5.0 Serum or plasma chloride measurement (moles/volume) 98 mmol/L 98-107 Carbon dioxide 22 mmol/L 21-32 Serum or plasma anion gap determination (moles/volume) 19 mmol/L 5-14 Serum or plasma urea nitrogen measurement (mass/volume ) 10 mg/dL 7-18 Serum or plasma creatinine measurement (mass/volume) 0.70 mg/dL 0.60-1.30 Serum or plasma urea nitrogen/creatinine mass ratio 14 NRG Serum or plasma creatinine measurement w ith calculation of estimated glomerular filtration rate > NRG Serum or plasma glucose measurement (mass/volume) 244 mg/dL 70-105 Serum or plasma calcium measurement (mass/volume) 9.3 mg/dL 8.5-10.1 Serum or plasma total bilirubin measurement (mass/volu me) 0.7 mg/dL 0.1-1.0 Serum or plasma alkaline phosphatase lakisha surement (enzymatic activity/volume) 93 U/L 40-136 Serum or plasma aspartate aminotransfera se measurement (enzymatic activity/volume) 13 U/L 5-34 Serum or plasma alanine aminotransferase measurement (enzymatic activity/volume) 16 U/L 0-55 Serum or plasma protein measurement (mass/volume) 7.6 g/dL 6.4-8.2 Serum or plasma albumin measurement (mass/volume) 4.5 g/dL 3.2-4.5 CALCIUM CORRECTED 8.9 mg/dL 8.5-10.1 Magnesium - 01/01/19 16:59 Magnesium 1.8 mg/dL 1.8-2.4 Myoglobin, serum - 01/01/19 16:59 Myoglobin, serum 25.6 ng/mL 10.0-92.0 TROPONIN T - 01/01/19 16:59 TROPONIN T 19 % <=10 PROBNP FS - 01/01/19 16:59 PROBNP FS 202.9 pg/mL <75.0 Fibrin D-dimer FEU measurement in platel et poor plasma (mass/volume) - 01/01/19 20:09 Fibrin D-dimer FEU measurement in platelet poor plasma (mass/volume) 0.54 ug/mL 0.00-0.49 Serum or plasma lithium measurement (mol es/volume) - 01/01/19 20:09 BNP level 69.0 pg/mL <100.0 Serum or plasma troponin i.cardiac measu rement (mass/volume) - 01/01/19 20:09 Serum or plasma troponin i.cardiac measurement (mass/v olume) 0.745 ng/mL <0.028 Capillary blood glucose measurement by g lucometer (mass/volume) - 01/01/19 22:24 Capillary blood glucose measurement by glucometer (mas s/volume) 314 mg/dL 70-110 Methicillin resistant Staphylococcus aur eus (MRSA) screening culture - 01/01/19 22:27 Methicillin resistant Staphylococcus aureus (MRSA) scr eening culture NEG NRG Complete blood count (CBC) with automate d white blood cell (WBC) differential - 01/02/19 02:00 Blood leukocytes automated count (number/volume) 26.2 10*3/uL 4.3-11.0 Blood erythrocytes automated count (number/volume) 4.46 10*6/uL 4.35-5.85 Venous blood hemoglobin measurement (mass/volume) 14.4 g/dL 11.5-16.0 Blood hematocrit (volume fraction) 44 % 35-52 Automated erythrocyte mean corpuscular volume 98 [ foz_us] 80-99 Automated erythrocyte mean corpuscular h emoglobin (mass per erythrocyte) 32 pg 25-34 Automated erythrocyte mean corpuscular h emoglobin concentration measurement (mass/volume) 33 g/dL 32-36 Automated erythrocyte distribution width ratio 13. 2 % 10.0- 14.5 Automated blood platelet count (count/volume) 280 10*3/uL 130-400 Automated blood platelet mean volume measurement 10.3 [foz_us] 7.4-10.4 Automated blood neutrophils/100 leukocytes 90 % 42-75 Automated blood lymphocytes/100 leukocytes 4 % 12-44 Blood monocytes/100 leukocytes 7 % 0-12 Automated blood eosinophils/100 leukocytes 0 % 0-10 Automated blood basophils/100 leukocytes 0 % 0-10 Blood neutrophils automated count (number/volume) 23.5 10*3 1.8-7.8 Blood lymphocytes automated count (number/volume) 1.0 10*3 1.0-4.0 Blood monocytes automated count (number/volume) 1. 7 10*3 0.0-1.0 Automated eosinophil count 0.0 10*3/uL 0 .0-0.3 Automated blood basophil count (count/volume) 0.0 10*3/uL 0.0-0.1 Comprehensive metabolic panel - 01/02/19 02:00 Serum or plasma sodium measurement (moles/volume) 137 mmol/L 135-145 Serum or plasma potassium measurement (moles/volume) 5.2 mmol/L 3.6-5.0 Serum or plasma chloride measurement (moles/volume) 103 mmol/L 98-107 Carbon dioxide 21 mmol/L 21-32 Serum or plasma anion gap determination (moles/volume) 13 mmol/L 5-14 Serum or plasma urea nitrogen measurement (mass/volume ) 13 mg/dL 7-18 Serum or plasma creatinine measurement (mass/volume) 1.23 mg/dL 0.60-1.30 Serum or plasma urea nitrogen/creatinine mass ratio 11 NRG Serum or plasma creatinine measurement w ith calculation of estimated glomerular filtration rate 44 NRG Serum or plasma glucose measurement (mass/volume) 271 mg/dL 70-105 Serum or plasma calcium measurement (mass/volume) 9.3 mg/dL 8.5-10.1 Serum or plasma total bilirubin measurement (mass/volu me) 0.3 mg/dL 0.1-1.0 Serum or plasma alkaline phosphatase lakisha surement (enzymatic activity/volume) 89 U/L 40-136 Serum or plasma aspartate aminotransfera se measurement (enzymatic activity/volume) 80 U/L 5-34 Serum or plasma alanine aminotransferase measurement (enzymatic activity/volume) 25 U/L 0-55 Serum or plasma protein measurement (mass/volume) 7.1 g/dL 6.4-8.2 Serum or plasma albumin measurement (mass/volume) 4.2 g/dL 3.2-4.5 CALCIUM CORRECTED 9.1 mg/dL 8.5-10.1 Serum or plasma troponin i.cardiac measu rement (mass/volume) - 01/02/19 02:00 Serum or plasma troponin i.cardiac measurement (mass/v olume) 16.131 ng/mL <0.028 Lipid 1996 panel - 01/02/19 02:00 Serum or plasma triglyceride measurement (mass/volume) 190 mg/dL <150 Serum or plasma cholesterol measurement (mass/volume) 237 mg/dL < 200 Serum or plasma cholesterol in HDL measurement (mass/v olume) 39 mg/dL 40-60 Cholesterol in LDL [mass/volume] in serum or plasma by direct assay 178 mg/dL 1-129 Serum or plasma cholesterol in VLDL measurement (mass/ volume) 38 mg/dL 5-40 Complete blood count (CBC) with automate d white blood cell (WBC) differential - 01/02/19 06:30 Blood leukocytes automated count (number/volume) 23.1 10*3/uL 4.3-11.0 Blood erythrocytes automated count (number/volume) 4.35 10*6/uL 4.35-5.85 Venous blood hemoglobin measurement (mass/volume) 14.2 g/dL 11.5-16.0 Blood hematocrit (volume fraction) 42 % 35-52 Automated erythrocyte mean corpuscular volume 97 [ foz_us] 80-99 Automated erythrocyte mean corpuscular h emoglobin (mass per erythrocyte) 33 pg 25-34 Automated erythrocyte mean corpuscular h emoglobin concentration measurement (mass/volume) 34 g/dL 32-36 Automated erythrocyte distribution width ratio 13. 2 % 10.0- 14.5 Automated blood platelet count (count/volume) 269 10*3/uL 130-400 Automated blood platelet mean volume measurement 10.5 [foz_us] 7.4-10.4 Automated blood neutrophils/100 leukocytes 85 % 42-75 Automated blood lymphocytes/100 leukocytes 7 % 12-44 Blood monocytes/100 leukocytes 9 % 0-12 Automated blood eosinophils/100 leukocytes 0 % 0-10 Automated blood basophils/100 leukocytes 0 % 0-10 Blood neutrophils automated count (number/volume) 19.5 10*3 1.8-7.8 Blood lymphocytes automated count (number/volume) 1.6 10*3 1.0-4.0 Blood monocytes automated count (number/volume) 2. 0 10*3 0.0-1.0 Automated eosinophil count 0.0 10*3/uL 0 .0-0.3 Automated blood basophil count (count/volume) 0.0 10*3/uL 0.0-0.1 Blood blood smear finding identification by light micr oscopy N NRG Blood lactic acid measurement (moles/vol ume) - 01/02/19 06:30 Blood lactic acid measurement (moles/volume) 2.35 mmol/L 0.50-2.00 Comprehensive metabolic panel - 01/02/19 06:30 Serum or plasma sodium measurement (moles/volume) 136 mmol/L 135-145 Serum or plasma potassium measurement (moles/volume) 4.9 mmol/L 3.6-5.0 Serum or plasma chloride measurement (moles/volume) 104 mmol/L 98-107 Carbon dioxide 22 mmol/L 21-32 Serum or plasma anion gap determination (moles/volume) 10 mmol/L 5-14 Serum or plasma urea nitrogen measurement (mass/volume ) 15 mg/dL 7-18 Serum or plasma creatinine measurement (mass/volume) 1.33 mg/dL 0.60-1.30 Serum or plasma urea nitrogen/creatinine mass ratio 11 NRG Serum or plasma creatinine measurement w ith calculation of estimated glomerular filtration rate 40 NRG Serum or plasma glucose measurement (mass/volume) 162 mg/dL 70-105 Serum or plasma calcium measurement (mass/volume) 9.0 mg/dL 8.5-10.1 Serum or plasma total bilirubin measurement (mass/volu me) 0.3 mg/dL 0.1-1.0 Serum or plasma alkaline phosphatase lakisha surement (enzymatic activity/volume) 81 U/L 40-136 Serum or plasma aspartate aminotransfera se measurement (enzymatic activity/volume) 96 U/L 5-34 Serum or plasma alanine aminotransferase measurement (enzymatic activity/volume) 26 U/L 0-55 Serum or plasma protein measurement (mass/volume) 6.6 g/dL 6.4-8.2 Serum or plasma albumin measurement (mass/volume) 4.0 g/dL 3.2-4.5 CALCIUM CORRECTED 9.0 mg/dL 8.5-10.1 Serum or plasma phosphate measurement (m ass/volume) - 01/02/19 06:30 Serum or plasma phosphate measurement (mass/volume) 5.7 mg/dL 2.3-4.7 Magnesium - 01/02/19 06:30 Magnesium 1.9 mg/dL 1.8-2.4 Bacterial blood culture - 01/02/19 06:30 Bacterial blood culture NG NRG Bacterial blood culture - 01/02/19 06:30 Bacterial blood culture NG NRG Bacterial blood culture - 01/02/19 06:35 Bacterial blood culture NG NRG Complete urinalysis with reflex to cultu re - 01/02/19 06:55 Urine color determination YELLOW NRG Urine clarity determination CLEAR NR G Urine pH measurement by test strip 5 5-9 Specific gravity of urine by test strip 1.010 1.016-1.022 Urine protein assay by test strip, semi-quantitative 2+ NEGATIVE Urine glucose detection by automated test strip 1+ NEGATIVE Erythrocytes detection in urine sediment by light micr oscopy NEGATIVE NEGATIVE Urine ketones detection by automated test strip NE GATIVE NEGATIVE Urine nitrite detection by test strip NEGATIVE NEGATIVE Urine total bilirubin detection by test strip NEGA TIVE NEGATIVE Urine urobilinogen measurement by automated test strip (mass/volume) 1 mg/dL NORMAL Urine leukocyte esterase detection by dipstick 1+ NEGATIVE Automated urine sediment erythrocyte cou nt by microscopy (number/high power field) NONE NRG Automated urine sediment leukocyte count by microscopy (number/high power field) [HPF] NRG Bacteria detection in urine sediment by light microsco py FEW NRG Squamous epithelial cells detection in u rine sediment by light microscopy 0-2 NRG Crystals detection in urine sediment by light microsco py NONE NRG Casts detection in urine sediment by light microscopy PRESENT NRG Mucus detection in urine sediment by light microscopy NEGATIVE NRG Complete urinalysis with reflex to culture NO NRG Hyaline casts detection in urine sediment by light sylvie roscopy 2-5 NRG Influenza virus A and B antigen detectio n - 01/02/19 07:15 FLU RESULT NEGATIVE FOR INFLUENZA A AND B ANTIGENS BY IA NRG Arterial blood gas measurement - 9 08:09 Blood pCO2 58 mm[Hg] 35-45 Blood pO2 75 mm[Hg] 79-93 Arterial blood bicarbonate measurement (moles/volume) 24 mmol/L 23-27 Arterial blood base excess by calculation -2.0 mmo l/L -2.5-2.5 Arterial blood oxygen saturation measurement 95 % 94-100 * Inhaled oxygen flow rate 4 NRG Arterial blood pH measurement with patient temperature correction 7.25 7.37-7.43 Arterial blood carbon dioxide, total measurement (mole s/volume) 25.9 mmol/L 21.0-31.0 Body site RT RADIAL NRG Assessment of wrist artery patency prior to arterial p uncture YES-POS NRG Setting of ventilation mode NO NR G Measurement of body temperature 99.2 NRG Serum or plasma lactate measurement (mol es/volume) - 01/02/19 09:20 Serum or plasma lactate measurement (moles/volume) 2.48 mmol/L 0.50-2.00 Capillary blood glucose measurement by g lucometer (mass/volume) - 01/02/19 10:18 Capillary blood glucose measurement by glucometer (mas s/volume) 168 mg/dL 70-110 Sputum Gram stain - 01/02/19 11:20 Sputum Gram stain 01-03-19604. NRG Bacterial sputum culture - 01/02/19 11:2 0 QUANTITY OF GROWTH . NRG Bacterial sputum culture USUAL RESP NRG Serum or plasma triglyceride measurement (mass/volume) - 01/02/19 13:50 Serum or plasma triglyceride measurement (mass/volume) 122 mg/dL <150 Activated partial thromboplastin time (a PTT) in platelet poor plasma bycoagulation assay - 01/02/19 13:50 Activated partial thromboplastin time (a PTT) in platelet poor plasma bycoagulation assay 135 s 24-35 Arterial blood gas measurement - 9 14:27 Blood pCO2 59 mm[Hg] 35-45 Blood pO2 90 mm[Hg] 79-93 Arterial blood bicarbonate measurement (moles/volume) 21 mmol/L 23-27 Arterial blood base excess by calculation -5.7 mmo l/L -2.5-2.5 Arterial blood oxygen saturation measurement 96 % 94-100 * Inhaled oxygen flow rate 80% NRG Arterial blood pH measurement with patient temperature correction 7.19 7.37-7.43 Arterial blood carbon dioxide, total measurement (mole s/volume) 23.0 mmol/L 21.0-31.0 Body site LT RADIAL NRG Assessment of wrist artery patency prior to arterial p uncture YES-POS NRG Setting of ventilation mode YES NR G Measurement of body temperature 99.8 NRG Activated partial thromboplastin time (a PTT) in platelet poor plasma bycoagulation assay - 01/02/19 15:50 Activated partial thromboplastin time (a PTT) in platelet poor plasma bycoagulation assay 55 s 24-35 Arterial blood gas measurement - 9 16:15 Blood pCO2 53 mm[Hg] 35-45 Blood pO2 95 mm[Hg] 79-93 Arterial blood bicarbonate measurement (moles/volume) 19 mmol/L 23-27 Arterial blood base excess by calculation -7.9 mmo l/L -2.5-2.5 Arterial blood oxygen saturation measurement 97 % 94-100 * Inhaled oxygen flow rate 80% NRG Arterial blood pH measurement with patient temperature correction 7.18 7.37-7.43 Arterial blood carbon dioxide, total measurement (mole s/volume) 20.6 mmol/L 21.0-31.0 Body site LEFT RADIAL NRG Assessment of wrist artery patency prior to arterial p uncture POSITIVE NRG Setting of ventilation mode YES NR G Measurement of body temperature 99.3 NRG Capillary blood glucose measurement by g lucometer (mass/volume) - 01/02/19 17:29 Capillary blood glucose measurement by glucometer (mas s/volume) 325 mg/dL 70-110 Arterial blood gas measurement - 9 19:05 Blood pCO2 43 mm[Hg] 35-45 Blood pO2 122 mm[Hg] 79-93 Arterial blood bicarbonate measurement (moles/volume) 17 mmol/L 23-27 Arterial blood base excess by calculation -8.8 mmo l/L -2.5-2.5 Arterial blood oxygen saturation measurement 99 % 94-100 * Inhaled oxygen flow rate 80% NRG Arterial blood pH measurement with patient temperature correction 7.23 7.37-7.43 Arterial blood carbon dioxide, total measurement (mole s/volume) 18.6 mmol/L 21.0-31.0 Body site RIGHT RADIAL NRG Assessment of wrist artery patency prior to arterial p uncture POSITIVE NRG Setting of ventilation mode YES NR G Measurement of body temperature 99.1 NRG Capillary blood glucose measurement by g lucometer (mass/volume) - 01/02/19 23:43 Capillary blood glucose measurement by glucometer (mas s/volume) 318 mg/dL 70-110 Complete blood count (CBC) with automate d white blood cell (WBC) differential - 01/03/19 02:45 Blood leukocytes automated count (number/volume) 13.4 10*3/uL 4.3-11.0 Blood erythrocytes automated count (number/volume) 3.69 10*6/uL 4.35-5.85 Venous blood hemoglobin measurement (mass/volume) 11.8 g/dL 11.5-16.0 Blood hematocrit (volume fraction) 37 % 35-52 Automated erythrocyte mean corpuscular volume 100 [foz_us] 80-99 Automated erythrocyte mean corpuscular h emoglobin (mass per erythrocyte) 32 pg 25-34 Automated erythrocyte mean corpuscular h emoglobin concentration measurement (mass/volume) 32 g/dL 32-36 Automated erythrocyte distribution width ratio 13. 4 % 10.0- 14.5 Automated blood platelet count (count/volume) 216 10*3/uL 130-400 Automated blood platelet mean volume measurement 10.3 [foz_us] 7.4-10.4 Automated blood neutrophils/100 leukocytes 91 % 42-75 Automated blood lymphocytes/100 leukocytes 5 % 12-44 Blood monocytes/100 leukocytes 4 % 0-12 Automated blood eosinophils/100 leukocytes 0 % 0-10 Automated blood basophils/100 leukocytes 0 % 0-10 Blood neutrophils automated count (number/volume) 12.1 10*3 1.8-7.8 Blood lymphocytes automated count (number/volume) 0.7 10*3 1.0-4.0 Blood monocytes automated count (number/volume) 0. 6 10*3 0.0-1.0 Automated eosinophil count 0.0 10*3/uL 0 .0-0.3 Automated blood basophil count (count/volume) 0.0 10*3/uL 0.0-0.1 Serum or plasma phosphate measurement (m ass/volume) - 01/03/19 02:45 Serum or plasma phosphate measurement (mass/volume) 2.0 mg/dL 2.3-4.7 Whole blood basic metabolic panel - 12/24 09/13 02:45 Serum or plasma sodium measurement (moles/volume) 137 mmol/L 135-145 Serum or plasma potassium measurement (moles/volume) 4.2 mmol/L 3.6-5.0 Serum or plasma chloride measurement (moles/volume) 111 mmol/L 98-107 Carbon dioxide 14 mmol/L 21-32 Serum or plasma anion gap determination (moles/volume) 12 mmol/L 5-14 Serum or plasma urea nitrogen measurement (mass/volume ) 19 mg/dL 7-18 Serum or plasma creatinine measurement (mass/volume) 1.16 mg/dL 0.60-1.30 Serum or plasma urea nitrogen/creatinine mass ratio 16 NRG Serum or plasma creatinine measurement w ith calculation of estimated glomerular filtration rate 47 NRG Serum or plasma glucose measurement (mass/volume) 301 mg/dL 70-105 Serum or plasma calcium measurement (mass/volume) 7.6 mg/dL 8.5-10.1 Magnesium - 01/03/19 02:45 Magnesium 1.6 mg/dL 1.8-2.4 Blood lactic acid measurement (moles/vol ume) - 01/03/19 02:45 Blood lactic acid measurement (moles/volume) 4.32 mmol/L 0.50-2.00 Serum or plasma troponin i.cardiac measu rement (mass/volume) - 01/03/19 02:45 Serum or plasma troponin i.cardiac measurement (mass/v olume) 15.861 ng/mL <0.028 Arterial blood gas measurement - 9 03:02 Blood pCO2 37 mm[Hg] 35-45 Blood pO2 112 mm[Hg] 79-93 Arterial blood bicarbonate measurement (moles/volume) 17 mmol/L 23-27 Arterial blood base excess by calculation -8.7 mmo l/L -2.5-2.5 Arterial blood oxygen saturation measurement 92 % 94-100 * Inhaled oxygen flow rate 40% VENT NRG Arterial blood pH measurement with patient temperature correction 7.28 7.37-7.43 Arterial blood carbon dioxide, total measurement (mole s/volume) 18.0 mmol/L 21.0-31.0 Body site LEFT RADIAL NRG Assessment of wrist artery patency prior to arterial p uncture POSITIVE NRG Setting of ventilation mode YES NR G Measurement of body temperature 97.3 NRG Serum or plasma lactate measurement (mol es/volume) - 01/03/19 06:35 Serum or plasma lactate measurement (moles/volume) 5.40 mmol/L 0.50-2.00 Capillary blood glucose measurement by g lucometer (mass/volume) - 01/03/19 11:37 Capillary blood glucose measurement by glucometer (mas s/volume) 239 mg/dL 70-110 Blood lactic acid measurement (moles/vol ume) - 01/03/19 15:05 Blood lactic acid measurement (moles/volume) 3.15 mmol/L 0.50-2.00 Comprehensive metabolic panel - 01/03/19 15:05 Serum or plasma sodium measurement (moles/volume) 139 mmol/L 135-145 Serum or plasma potassium measurement (moles/volume) 3.8 mmol/L 3.6-5.0 Serum or plasma chloride measurement (moles/volume) 110 mmol/L 98-107 Carbon dioxide 17 mmol/L 21-32 Serum or plasma anion gap determination (moles/volume) 12 mmol/L 5-14 Serum or plasma urea nitrogen measurement (mass/volume ) 20 mg/dL 7-18 Serum or plasma creatinine measurement (mass/volume) 0.92 mg/dL 0.60-1.30 Serum or plasma urea nitrogen/creatinine mass ratio 22 NRG Serum or plasma creatinine measurement w ith calculation of estimated glomerular filtration rate > NRG Serum or plasma glucose measurement (mass/volume) 224 mg/dL 70-105 Serum or plasma calcium measurement (mass/volume) 7.8 mg/dL 8.5-10.1 Serum or plasma total bilirubin measurement (mass/volu me) 0.2 mg/dL 0.1-1.0 Serum or plasma alkaline phosphatase lakisha surement (enzymatic activity/volume) 50 U/L 40-136 Serum or plasma aspartate aminotransfera se measurement (enzymatic activity/volume) 43 U/L 5-34 Serum or plasma alanine aminotransferase measurement (enzymatic activity/volume) 35 U/L 0-55 Serum or plasma protein measurement (mass/volume) 4.7 g/dL 6.4-8.2 Serum or plasma albumin measurement (mass/volume) 2.9 g/dL 3.2-4.5 CALCIUM CORRECTED 8.7 mg/dL 8.5-10.1 Capillary blood glucose measurement by g lucometer (mass/volume) - 01/03/19 17:27 Capillary blood glucose measurement by glucometer (mas s/volume) 209 mg/dL 70-110 Serum or plasma lactate measurement (mol es/volume) - 01/03/19 17:29 Serum or plasma lactate measurement (moles/volume) 3.18 mmol/L 0.50-2.00 Capillary blood glucose measurement by g lucometer (mass/volume) - 01/03/19 23:33 Capillary blood glucose measurement by glucometer (mas s/volume) 154 mg/dL 70-110 Complete blood count (CBC) with automate d white blood cell (WBC) differential - 01/04/19 03:00 Blood leukocytes automated count (number/volume) 20.0 10*3/uL 4.3-11.0 Blood erythrocytes automated count (number/volume) 3.35 10*6/uL 4.35-5.85 Venous blood hemoglobin measurement (mass/volume) 10.8 g/dL 11.5-16.0 Blood hematocrit (volume fraction) 33 % 35-52 Automated erythrocyte mean corpuscular volume 99 [ foz_us] 80-99 Automated erythrocyte mean corpuscular h emoglobin (mass per erythrocyte) 32 pg 25-34 Automated erythrocyte mean corpuscular h emoglobin concentration measurement (mass/volume) 33 g/dL 32-36 Automated erythrocyte distribution width ratio 13. 9 % 10.0- 14.5 Automated blood platelet count (count/volume) 202 10*3/uL 130-400 Automated blood platelet mean volume measurement 10.2 [foz_us] 7.4-10.4 Automated blood neutrophils/100 leukocytes 87 % 42-75 Automated blood lymphocytes/100 leukocytes 4 % 12-44 Blood monocytes/100 leukocytes 9 % 0-12 Automated blood eosinophils/100 leukocytes 0 % 0-10 Automated blood basophils/100 leukocytes 0 % 0-10 Blood neutrophils automated count (number/volume) 17.3 10*3 1.8-7.8 Blood lymphocytes automated count (number/volume) 0.8 10*3 1.0-4.0 Blood monocytes automated count (number/volume) 1. 8 10*3 0.0-1.0 Automated eosinophil count 0.0 10*3/uL 0 .0-0.3 Automated blood basophil count (count/volume) 0.0 10*3/uL 0.0-0.1 Arterial blood gas measurement - 9 03:00 Blood pCO2 35 mm[Hg] 35-45 Blood pO2 73 mm[Hg] 79-93 Arterial blood bicarbonate measurement (moles/volume) 21 mmol/L 23-27 Arterial blood base excess by calculation -3.1 mmo l/L -2.5-2.5 Arterial blood oxygen saturation measurement 96 % 94-100 * Inhaled oxygen flow rate 35% VENT NRG Arterial blood pH measurement with patient temperature correction 7.39 7.37-7.43 Arterial blood carbon dioxide, total measurement (mole s/volume) 22.3 mmol/L 21.0-31.0 Body site LEFT RADIAL NRG Assessment of wrist artery patency prior to arterial p uncture POSITIVE NRG Setting of ventilation mode YES NR G Measurement of body temperature 97.5 NRG Serum or plasma phosphate measurement (m ass/volume) - 01/04/19 03:00 Serum or plasma phosphate measurement (mass/volume) 2.8 mg/dL 2.3-4.7 Whole blood basic metabolic panel - 12/24 10/14 03:00 Serum or plasma sodium measurement (moles/volume) 140 mmol/L 135-145 Serum or plasma potassium measurement (moles/volume) 4.0 mmol/L 3.6-5.0 Serum or plasma chloride measurement (moles/volume) 111 mmol/L 98-107 Carbon dioxide 18 mmol/L 21-32 Serum or plasma anion gap determination (moles/volume) 11 mmol/L 5-14 Serum or plasma urea nitrogen measurement (mass/volume ) 20 mg/dL 7-18 Serum or plasma creatinine measurement (mass/volume) 0.90 mg/dL 0.60-1.30 Serum or plasma urea nitrogen/creatinine mass ratio 22 NRG Serum or plasma creatinine measurement w ith calculation of estimated glomerular filtration rate > NRG Serum or plasma glucose measurement (mass/volume) 149 mg/dL 70-105 Serum or plasma calcium measurement (mass/volume) 8.1 mg/dL 8.5-10.1 Magnesium - 01/04/19 03:00 Magnesium 1.9 mg/dL 1.8-2.4 Serum or plasma troponin i.cardiac measu rement (mass/volume) - 01/04/19 03:00 Serum or plasma troponin i.cardiac measurement (mass/v olume) 9.689 ng/mL <0.028 Blood lactic acid measurement (moles/vol ume) - 01/04/19 06:15 Blood lactic acid measurement (moles/volume) 3.44 mmol/L 0.50-2.00 Serum or plasma lactate measurement (mol es/volume) - 01/04/19 09:00 Serum or plasma lactate measurement (moles/volume) 2.07 mmol/L 0.50-2.00 Capillary blood glucose measurement by g lucometer (mass/volume) - 01/04/19 11:25 Capillary blood glucose measurement by glucometer (mas s/volume) 189 mg/dL 70-110 Serum or plasma triglyceride measurement (mass/volume) - 01/04/19 12:10 Serum or plasma triglyceride measurement (mass/volume) 290 mg/dL <150 Vancomycin trough - 01/04/19 12:10 Vancomycin trough 12.0 ug/mL 10.0-20.0 Capillary blood glucose measurement by g lucometer (mass/volume) - 01/04/19 16:56 Capillary blood glucose measurement by glucometer (mas s/volume) 224 mg/dL 70-110 Capillary blood glucose measurement by g lucometer (mass/volume) - 01/04/19 23:21 Capillary blood glucose measurement by glucometer (mas s/volume) 224 mg/dL 70-110 Complete blood count (CBC) with automate d white blood cell (WBC) differential - 01/05/19 02:32 Blood leukocytes automated count (number/volume) 15.7 10*3/uL 4.3-11.0 Blood erythrocytes automated count (number/volume) 3.91 10*6/uL 4.35-5.85 Venous blood hemoglobin measurement (mass/volume) 12.6 g/dL 11.5-16.0 Blood hematocrit (volume fraction) 38 % 35-52 Automated erythrocyte mean corpuscular volume 97 [ foz_us] 80-99 Automated erythrocyte mean corpuscular h emoglobin (mass per erythrocyte) 32 pg 25-34 Automated erythrocyte mean corpuscular h emoglobin concentration measurement (mass/volume) 33 g/dL 32-36 Automated erythrocyte distribution width ratio 13. 9 % 10.0- 14.5 Automated blood platelet count (count/volume) 211 10*3/uL 130-400 Automated blood platelet mean volume measurement 10.2 [foz_us] 7.4-10.4 Automated blood neutrophils/100 leukocytes 82 % 42-75 Automated blood lymphocytes/100 leukocytes 9 % 12-44 Blood monocytes/100 leukocytes 10 % 0-12 Automated blood eosinophils/100 leukocytes 0 % 0-10 Automated blood basophils/100 leukocytes 0 % 0-10 Blood neutrophils automated count (number/volume) 12.8 10*3 1.8-7.8 Blood lymphocytes automated count (number/volume) 1.3 10*3 1.0-4.0 Blood monocytes automated count (number/volume) 1. 5 10*3 0.0-1.0 Automated eosinophil count 0.0 10*3/uL 0 .0-0.3 Automated blood basophil count (count/volume) 0.0 10*3/uL 0.0-0.1 Whole blood basic metabolic panel - 12/24 11/11 02:32 Serum or plasma sodium measurement (moles/volume) 141 mmol/L 135-145 Serum or plasma potassium measurement (moles/volume) 4.7 mmol/L 3.6-5.0 Serum or plasma chloride measurement (moles/volume) 111 mmol/L 98-107 Carbon dioxide 20 mmol/L 21-32 Serum or plasma anion gap determination (moles/volume) 10 mmol/L 5-14 Serum or plasma urea nitrogen measurement (mass/volume ) 20 mg/dL 7-18 Serum or plasma creatinine measurement (mass/volume) 0.88 mg/dL 0.60-1.30 Serum or plasma urea nitrogen/creatinine mass ratio 23 NRG Serum or plasma creatinine measurement w ith calculation of estimated glomerular filtration rate > NRG Serum or plasma glucose measurement (mass/volume) 233 mg/dL 70-105 Serum or plasma calcium measurement (mass/volume) 8.4 mg/dL 8.5-10.1 Serum or plasma phosphate measurement (m ass/volume) - 01/05/19 02:32 Serum or plasma phosphate measurement (mass/volume) 2.8 mg/dL 2.3-4.7 Magnesium - 01/05/19 02:32 Magnesium 2.2 mg/dL 1.8-2.4 Arterial blood gas measurement - 9 03:51 Blood pCO2 38 mm[Hg] 35-45 Blood pO2 73 mm[Hg] 79-93 Arterial blood bicarbonate measurement (moles/volume) 23 mmol/L 23-27 Arterial blood base excess by calculation -0.5 mmo l/L -2.5-2.5 Arterial blood oxygen saturation measurement 94 % 94-100 * Inhaled oxygen flow rate 25% VENT NRG Arterial blood pH measurement with patient temperature correction 7.41 7.37-7.43 Arterial blood carbon dioxide, total measurement (mole s/volume) 24.4 mmol/L 21.0-31.0 Body site LEFT RADIAL NRG Assessment of wrist artery patency prior to arterial p uncture POSITIVE NRG Setting of ventilation mode YES NR G Measurement of body temperature 100.7 NRG Bacterial blood culture - 01/05/19 05:15 Bacterial blood culture NG NRG Complete urinalysis with reflex to cultu re - 01/05/19 05:30 Urine color determination YELLOW NRG Urine clarity determination CLEAR NR G Urine pH measurement by test strip 6 5-9 Specific gravity of urine by test strip 1.015 1.016-1.022 Urine protein assay by test strip, semi-quantitative 1+ NEGATIVE Urine glucose detection by automated test strip NE GATIVE NEGATIVE Erythrocytes detection in urine sediment by light micr oscopy 1+ NEGATIVE Urine ketones detection by automated test strip NE GATIVE NEGATIVE Urine nitrite detection by test strip NEGATIVE NEGATIVE Urine total bilirubin detection by test strip NEGA TIVE NEGATIVE Urine urobilinogen measurement by automated test strip (mass/volume) NORMAL NORMAL Urine leukocyte esterase detection by dipstick 1+ NEGATIVE Automated urine sediment erythrocyte cou nt by microscopy (number/high power field) NONE NRG Automated urine sediment leukocyte count by microscopy (number/high power field) [HPF] NRG Bacteria detection in urine sediment by light microsco py TRACE NRG Squamous epithelial cells detection in u rine sediment by light microscopy RARE NRG Crystals detection in urine sediment by light microsco py NONE NRG Casts detection in urine sediment by light microscopy NONE NRG Mucus detection in urine sediment by light microscopy NEGATIVE NRG Complete urinalysis with reflex to culture NO NRG Capillary blood glucose measurement by g lucometer (mass/volume) - 01/05/19 05:31 Capillary blood glucose measurement by glucometer (mas s/volume) 208 mg/dL 70-110 Sputum Gram stain - 01/05/19 06:09 Sputum Gram stain Rare Yeast NRG Bacterial sputum culture - 01/05/19 06:0 9 FREE TEXT EXTERNAL MULTI-DRUG RESISTANT ORGANISM; CONTACT NRG QUANTITY OF GROWTH FEW NRG FREE TEXT ENTRY 2 PRECAUTIONS, SUSCEPTIBILITY REPO RTED NRG FREE TEXT ENTRY 3 01/08 12:05 , ID REPORTED 01/06 16 :05 NRG Bacterial sputum culture YEAST NRG RML Sensitivity Panel - 01/05/19 06:09 Trimethoprim/sulfamethoxazole susceptibi lity test by minimum inhibitoryconcentration <= NRG Levofloxacin susceptibility test by minimum inhibitory concentration <= NRG Piperacillin/tazobactam susceptibility t est by minimum inhibitory concentration R NRG Bacterial blood culture - 01/05/19 08:02 Bacterial blood culture NG NRG Capillary blood glucose measurement by g lucometer (mass/volume) - 01/05/19 10:50 Capillary blood glucose measurement by glucometer (mas s/volume) 183 mg/dL 70-110 Capillary blood glucose measurement by g lucometer (mass/volume) - 01/05/19 17:01 Capillary blood glucose measurement by glucometer (mas s/volume) 211 mg/dL 70-110 Capillary blood glucose measurement by g lucometer (mass/volume) - 01/05/19 23:29 Capillary blood glucose measurement by glucometer (mas s/volume) 170 mg/dL 70-110 Complete blood count (CBC) with automate d white blood cell (WBC) differential - 01/06/19 03:35 Blood leukocytes automated count (number/volume) 15.0 10*3/uL 4.3-11.0 Blood erythrocytes automated count (number/volume) 3.95 10*6/uL 4.35-5.85 Venous blood hemoglobin measurement (mass/volume) 12.6 g/dL 11.5-16.0 Blood hematocrit (volume fraction) 38 % 35-52 Automated erythrocyte mean corpuscular volume 95 [ foz_us] 80-99 Automated erythrocyte mean corpuscular h emoglobin (mass per erythrocyte) 32 pg 25-34 Automated erythrocyte mean corpuscular h emoglobin concentration measurement (mass/volume) 33 g/dL 32-36 Automated erythrocyte distribution width ratio 13. 5 % 10.0- 14.5 Automated blood platelet count (count/volume) 187 10*3/uL 130-400 Automated blood platelet mean volume measurement 10.5 [foz_us] 7.4-10.4 Automated blood neutrophils/100 leukocytes 80 % 42-75 Automated blood lymphocytes/100 leukocytes 11 % 12-44 Blood monocytes/100 leukocytes 9 % 0-12 Automated blood eosinophils/100 leukocytes 0 % 0-10 Automated blood basophils/100 leukocytes 0 % 0-10 Blood neutrophils automated count (number/volume) 12.0 10*3 1.8-7.8 Blood lymphocytes automated count (number/volume) 1.7 10*3 1.0-4.0 Blood monocytes automated count (number/volume) 1. 3 10*3 0.0-1.0 Automated eosinophil count 0.0 10*3/uL 0 .0-0.3 Automated blood basophil count (count/volume) 0.0 10*3/uL 0.0-0.1 Arterial blood gas measurement - 9 03:35 Blood pCO2 34 mm[Hg] 35-45 Blood pO2 58 mm[Hg] 79-93 Arterial blood bicarbonate measurement (moles/volume) 25 mmol/L 23-27 Arterial blood base excess by calculation 1.0 mmol /L -2.5-2.5 Arterial blood oxygen saturation measurement 90 % 94-100 * Inhaled oxygen flow rate 25% NRG Arterial blood pH measurement with patient temperature correction 7.46 7.37-7.43 Arterial blood carbon dioxide, total measurement (mole s/volume) 25.6 mmol/L 21.0-31.0 Body site LEFT RADIAL NRG Assessment of wrist artery patency prior to arterial p uncture POSITIVE NRG Setting of ventilation mode YES NR G Measurement of body temperature 97.7 NRG Whole blood basic metabolic panel - 12/24 12/12 03:35 Serum or plasma sodium measurement (moles/volume) 139 mmol/L 135-145 Serum or plasma potassium measurement (moles/volume) 4.0 mmol/L 3.6-5.0 Serum or plasma chloride measurement (moles/volume) 108 mmol/L 98-107 Carbon dioxide 21 mmol/L 21-32 Serum or plasma anion gap determination (moles/volume) 10 mmol/L 5-14 Serum or plasma urea nitrogen measurement (mass/volume ) 16 mg/dL 7-18 Serum or plasma creatinine measurement (mass/volume) 0.72 mg/dL 0.60-1.30 Serum or plasma urea nitrogen/creatinine mass ratio 22 NRG Serum or plasma creatinine measurement w ith calculation of estimated glomerular filtration rate > NRG Serum or plasma glucose measurement (mass/volume) 192 mg/dL 70-105 Serum or plasma calcium measurement (mass/volume) 8.0 mg/dL 8.5-10.1 Serum or plasma phosphate measurement (m ass/volume) - 01/06/19 03:35 Serum or plasma phosphate measurement (mass/volume) 3.2 mg/dL 2.3-4.7 Magnesium - 01/06/19 03:35 Magnesium 2.1 mg/dL 1.8-2.4 Capillary blood glucose measurement by g lucometer (mass/volume) - 01/06/19 10:40 Capillary blood glucose measurement by glucometer (mas s/volume) 219 mg/dL 70-110 Capillary blood glucose measurement by g lucometer (mass/volume) - 01/06/19 11:53 Capillary blood glucose measurement by glucometer (mas s/volume) 212 mg/dL 70-110 Capillary blood glucose measurement by g lucometer (mass/volume) - 01/06/19 17:57 Capillary blood glucose measurement by glucometer (mas s/volume) 224 mg/dL 70-110 Capillary blood glucose measurement by g lucometer (mass/volume) - 01/06/19 23:29 Capillary blood glucose measurement by glucometer (mas s/volume) 210 mg/dL 70-110 Complete blood count (CBC) with automate d white blood cell (WBC) differential - 01/07/19 03:06 Blood leukocytes automated count (number/volume) 15.1 10*3/uL 4.3-11.0 Blood erythrocytes automated count (number/volume) 4.00 10*6/uL 4.35-5.85 Venous blood hemoglobin measurement (mass/volume) 12.6 g/dL 11.5-16.0 Blood hematocrit (volume fraction) 37 % 35-52 Automated erythrocyte mean corpuscular volume 94 [ foz_us] 80-99 Automated erythrocyte mean corpuscular h emoglobin (mass per erythrocyte) 32 pg 25-34 Automated erythrocyte mean corpuscular h emoglobin concentration measurement (mass/volume) 34 g/dL 32-36 Automated erythrocyte distribution width ratio 13. 1 % 10.0- 14.5 Automated blood platelet count (count/volume) 190 10*3/uL 130-400 Automated blood platelet mean volume measurement 10.3 [foz_us] 7.4-10.4 Automated blood neutrophils/100 leukocytes 89 % 42-75 Automated blood lymphocytes/100 leukocytes 4 % 12-44 Blood monocytes/100 leukocytes 7 % 0-12 Automated blood eosinophils/100 leukocytes 0 % 0-10 Automated blood basophils/100 leukocytes 0 % 0-10 Blood neutrophils automated count (number/volume) 13.5 10*3 1.8-7.8 Blood lymphocytes automated count (number/volume) 0.7 10*3 1.0-4.0 Blood monocytes automated count (number/volume) 1. 0 10*3 0.0-1.0 Automated eosinophil count 0.0 10*3/uL 0 .0-0.3 Automated blood basophil count (count/volume) 0.0 10*3/uL 0.0-0.1 Whole blood basic metabolic panel - 12/24 01/11 03:06 Serum or plasma sodium measurement (moles/volume) 139 mmol/L 135-145 Serum or plasma potassium measurement (moles/volume) 3.9 mmol/L 3.6-5.0 Serum or plasma chloride measurement (moles/volume) 105 mmol/L 98-107 Carbon dioxide 22 mmol/L 21-32 Serum or plasma anion gap determination (moles/volume) 12 mmol/L 5-14 Serum or plasma urea nitrogen measurement (mass/volume ) 18 mg/dL 7-18 Serum or plasma creatinine measurement (mass/volume) 0.66 mg/dL 0.60-1.30 Serum or plasma urea nitrogen/creatinine mass ratio 27 NRG Serum or plasma creatinine measurement w ith calculation of estimated glomerular filtration rate > NRG Serum or plasma glucose measurement (mass/volume) 201 mg/dL 70-105 Serum or plasma calcium measurement (mass/volume) 8.0 mg/dL 8.5-10.1 Serum or plasma phosphate measurement (m ass/volume) - 01/07/19 03:06 Serum or plasma phosphate measurement (mass/volume) 2.7 mg/dL 2.3-4.7 Magnesium - 01/07/19 03:06 Magnesium 2.2 mg/dL 1.8-2.4 Blood manual differential performed dete ction - 01/07/19 03:06 Blood monocytes/100 leukocytes 8 % NRG Manual blood segmented neutrophils/100 leukocytes 87 % NRG Manual blood lymphocytes/100 leukocytes 5 % NRG Serum or plasma lithium measurement (mol es/volume) - 01/07/19 03:06 BNP level 894.7 pg/mL <100.0 Arterial blood gas measurement - 9 03:20 Blood pCO2 34 mm[Hg] 35-45 Blood pO2 65 mm[Hg] 79-93 Arterial blood bicarbonate measurement (moles/volume) 27 mmol/L 23-27 Arterial blood base excess by calculation 4.2 mmol /L -2.5-2.5 Arterial blood oxygen saturation measurement 93 % 94-100 * Inhaled oxygen flow rate 25% FIO2 NRG Arterial blood pH measurement with patient temperature correction 7.52 7.37-7.43 Arterial blood carbon dioxide, total measurement (mole s/volume) 28.2 mmol/L 21.0-31.0 Body site LEFT RADIAL NRG Assessment of wrist artery patency prior to arterial p uncture POSITIVE NRG Setting of ventilation mode YES NR G Measurement of body temperature 98.5 NRG Capillary blood glucose measurement by g lucometer (mass/volume) - 01/07/19 12:13 Capillary blood glucose measurement by glucometer (mas s/volume) 175 mg/dL 70-110 Arterial blood gas measurement - 9 14:23 Blood pCO2 36 mm[Hg] 35-45 Blood pO2 76 mm[Hg] 79-93 Arterial blood bicarbonate measurement (moles/volume) 27 mmol/L 23-27 Arterial blood base excess by calculation 3.9 mmol /L -2.5-2.5 Arterial blood oxygen saturation measurement 96 % 94-100 * Inhaled oxygen flow rate 70% VAPOTHERM NRG Arterial blood pH measurement with patient temperature correction 7.49 7.37-7.43 Arterial blood carbon dioxide, total measurement (mole s/volume) 28.4 mmol/L 21.0-31.0 Body site RIGHT RADIAL NRG Assessment of wrist artery patency prior to arterial p uncture POSITIVE NRG Setting of ventilation mode NO NR G Measurement of body temperature 98.1 NRG Capillary blood glucose measurement by g lucometer (mass/volume) - 01/07/19 18:11 Capillary blood glucose measurement by glucometer (mas s/volume) 262 mg/dL 70-110 Capillary blood glucose measurement by g lucometer (mass/volume) - 01/07/19 23:48 Capillary blood glucose measurement by glucometer (mas s/volume) 248 mg/dL 70-110 Complete blood count (CBC) with automate d white blood cell (WBC) differential - 01/08/19 03:10 Blood leukocytes automated count (number/volume) 20.0 10*3/uL 4.3-11.0 Blood erythrocytes automated count (number/volume) 3.78 10*6/uL 4.35-5.85 Venous blood hemoglobin measurement (mass/volume) 12.1 g/dL 11.5-16.0 Blood hematocrit (volume fraction) 36 % 35-52 Automated erythrocyte mean corpuscular volume 94 [ foz_us] 80-99 Automated erythrocyte mean corpuscular h emoglobin (mass per erythrocyte) 32 pg 25-34 Automated erythrocyte mean corpuscular h emoglobin concentration measurement (mass/volume) 34 g/dL 32-36 Automated erythrocyte distribution width ratio 13. 0 % 10.0- 14.5 Automated blood platelet count (count/volume) 184 10*3/uL 130-400 Automated blood platelet mean volume measurement 10.4 [foz_us] 7.4-10.4 Automated blood neutrophils/100 leukocytes 93 % 42-75 Automated blood lymphocytes/100 leukocytes 3 % 12-44 Blood monocytes/100 leukocytes 5 % 0-12 Automated blood eosinophils/100 leukocytes 0 % 0-10 Automated blood basophils/100 leukocytes 0 % 0-10 Blood neutrophils automated count (number/volume) 18.5 10*3 1.8-7.8 Blood lymphocytes automated count (number/volume) 0.5 10*3 1.0-4.0 Blood monocytes automated count (number/volume) 1. 0 10*3 0.0-1.0 Automated eosinophil count 0.0 10*3/uL 0 .0-0.3 Automated blood basophil count (count/volume) 0.0 10*3/uL 0.0-0.1 Serum or plasma phosphate measurement (m ass/volume) - 01/08/19 03:10 Serum or plasma phosphate measurement (mass/volume) 3.1 mg/dL 2.3-4.7 Whole blood basic metabolic panel - 12/24 02/11 03:10 Serum or plasma sodium measurement (moles/volume) 135 mmol/L 135-145 Serum or plasma potassium measurement (moles/volume) 3.8 mmol/L 3.6-5.0 Serum or plasma chloride measurement (moles/volume) 100 mmol/L 98-107 Carbon dioxide 23 mmol/L 21-32 Serum or plasma anion gap determination (moles/volume) 12 mmol/L 5-14 Serum or plasma urea nitrogen measurement (mass/volume ) 18 mg/dL 7-18 Serum or plasma creatinine measurement (mass/volume) 0.81 mg/dL 0.60-1.30 Serum or plasma urea nitrogen/creatinine mass ratio 22 NRG Serum or plasma creatinine measurement w ith calculation of estimated glomerular filtration rate > NRG Serum or plasma glucose measurement (mass/volume) 256 mg/dL 70-105 Serum or plasma calcium measurement (mass/volume) 8.4 mg/dL 8.5-10.1 Magnesium - 01/08/19 03:10 Magnesium 2.2 mg/dL 1.8-2.4 Ammonia - 01/08/19 06:05 Ammonia 24 umol/L 11-32 Capillary blood glucose measurement by g lucometer (mass/volume) - 01/08/19 11:45 Capillary blood glucose measurement by glucometer (mas s/volume) 250 mg/dL 70-110 Capillary blood glucose measurement by g lucometer (mass/volume) - 01/08/19 17:52 Capillary blood glucose measurement by glucometer (mas s/volume) 229 mg/dL 70-110 Capillary blood glucose measurement by g lucometer (mass/volume) - 01/09/19 00:03 Capillary blood glucose measurement by glucometer (mas s/volume) 247 mg/dL 70-110 Complete blood count (CBC) with automate d white blood cell (WBC) differential - 01/09/19 04:00 Blood leukocytes automated count (number/volume) 21.7 10*3/uL 4.3-11.0 Blood erythrocytes automated count (number/volume) 3.94 10*6/uL 4.35-5.85 Venous blood hemoglobin measurement (mass/volume) 12.6 g/dL 11.5-16.0 Blood hematocrit (volume fraction) 37 % 35-52 Automated erythrocyte mean corpuscular volume 93 [ foz_us] 80-99 Automated erythrocyte mean corpuscular h emoglobin (mass per erythrocyte) 32 pg 25-34 Automated erythrocyte mean corpuscular h emoglobin concentration measurement (mass/volume) 34 g/dL 32-36 Automated erythrocyte distribution width ratio 13. 4 % 10.0- 14.5 Automated blood platelet count (count/volume) 235 10*3/uL 130-400 Automated blood platelet mean volume measurement 10.3 [foz_us] 7.4-10.4 Automated blood neutrophils/100 leukocytes 89 % 42-75 Automated blood lymphocytes/100 leukocytes 2 % 12-44 Blood monocytes/100 leukocytes 9 % 0-12 Automated blood eosinophils/100 leukocytes 0 % 0-10 Automated blood basophils/100 leukocytes 0 % 0-10 Blood neutrophils automated count (number/volume) 19.2 10*3 1.8-7.8 Blood lymphocytes automated count (number/volume) 0.5 10*3 1.0-4.0 Blood monocytes automated count (number/volume) 1. 9 10*3 0.0-1.0 Automated eosinophil count 0.0 10*3/uL 0 .0-0.3 Automated blood basophil count (count/volume) 0.0 10*3/uL 0.0-0.1 Serum or plasma phosphate measurement (m ass/volume) - 01/09/19 04:00 Serum or plasma phosphate measurement (mass/volume) 3.5 mg/dL 2.3-4.7 Whole blood basic metabolic panel - 12/24 03/13 04:00 Serum or plasma sodium measurement (moles/volume) 135 mmol/L 135-145 Serum or plasma potassium measurement (moles/volume) 4.2 mmol/L 3.6-5.0 Serum or plasma chloride measurement (moles/volume) 100 mmol/L 98-107 Carbon dioxide 22 mmol/L 21-32 Serum or plasma anion gap determination (moles/volume) 13 mmol/L 5-14 Serum or plasma urea nitrogen measurement (mass/volume ) 18 mg/dL 7-18 Serum or plasma creatinine measurement (mass/volume) 0.99 mg/dL 0.60-1.30 Serum or plasma urea nitrogen/creatinine mass ratio 18 NRG Serum or plasma creatinine measurement w ith calculation of estimated glomerular filtration rate 56 NRG Serum or plasma glucose measurement (mass/volume) 239 mg/dL 70-105 Serum or plasma calcium measurement (mass/volume) 9.0 mg/dL 8.5-10.1 Magnesium - 01/09/19 04:00 Magnesium 2.3 mg/dL 1.8-2.4 Capillary blood glucose measurement by g lucometer (mass/volume) - 01/09/19 11:49 Capillary blood glucose measurement by glucometer (mas s/volume) 150 mg/dL 70-110 Capillary blood glucose measurement by g lucometer (mass/volume) - 01/09/19 16:10 Capillary blood glucose measurement by glucometer (mas s/volume) 151 mg/dL 70-110 Capillary blood glucose measurement by g lucometer (mass/volume) - 01/09/19 21:20 Capillary blood glucose measurement by glucometer (mas s/volume) 111 mg/dL 70-110 Complete blood count (CBC) with automate d white blood cell (WBC) differential - 01/10/19 02:43 Blood leukocytes automated count (number/volume) 23.5 10*3/uL 4.3-11.0 Blood erythrocytes automated count (number/volume) 4.12 10*6/uL 4.35-5.85 Venous blood hemoglobin measurement (mass/volume) 13.1 g/dL 11.5-16.0 Blood hematocrit (volume fraction) 39 % 35-52 Automated erythrocyte mean corpuscular volume 95 [ foz_us] 80-99 Automated erythrocyte mean corpuscular h emoglobin (mass per erythrocyte) 32 pg 25-34 Automated erythrocyte mean corpuscular h emoglobin concentration measurement (mass/volume) 33 g/dL 32-36 Automated erythrocyte distribution width ratio 13. 8 % 10.0- 14.5 Automated blood platelet count (count/volume) 317 10*3/uL 130-400 Automated blood platelet mean volume measurement 10.2 [foz_us] 7.4-10.4 Automated blood neutrophils/100 leukocytes 77 % 42-75 Automated blood lymphocytes/100 leukocytes 8 % 12-44 Blood monocytes/100 leukocytes 14 % 0-12 Automated blood eosinophils/100 leukocytes 0 % 0-10 Automated blood basophils/100 leukocytes 0 % 0-10 Blood neutrophils automated count (number/volume) 18.1 10*3 1.8-7.8 Blood lymphocytes automated count (number/volume) 2.0 10*3 1.0-4.0 Blood monocytes automated count (number/volume) 3. 4 10*3 0.0-1.0 Automated eosinophil count 0.0 10*3/uL 0 .0-0.3 Automated blood basophil count (count/volume) 0.0 10*3/uL 0.0-0.1 Whole blood basic metabolic panel - 12/24 04/13 02:43 Serum or plasma sodium measurement (moles/volume) 136 mmol/L 135-145 Serum or plasma potassium measurement (moles/volume) 3.8 mmol/L 3.6-5.0 Serum or plasma chloride measurement (moles/volume) 99 mmol/L 98-107 Carbon dioxide 24 mmol/L 21-32 Serum or plasma anion gap determination (moles/volume) 13 mmol/L 5-14 Serum or plasma urea nitrogen measurement (mass/volume ) 20 mg/dL 7-18 Serum or plasma creatinine measurement (mass/volume) 1.08 mg/dL 0.60-1.30 Serum or plasma urea nitrogen/creatinine mass ratio 19 NRG Serum or plasma creatinine measurement w ith calculation of estimated glomerular filtration rate 51 NRG Serum or plasma glucose measurement (mass/volume) 116 mg/dL 70-105 Serum or plasma calcium measurement (mass/volume) 9.1 mg/dL 8.5-10.1 Serum or plasma phosphate measurement (m ass/volume) - 01/10/19 02:43 Serum or plasma phosphate measurement (mass/volume) 2.2 mg/dL 2.3-4.7 Magnesium - 01/10/19 02:43 Magnesium 2.4 mg/dL 1.8-2.4 Blood manual differential performed dete ction - 01/10/19 02:43 Blood monocytes/100 leukocytes 12 % NRG Manual blood segmented neutrophils/100 leukocytes 79 % NRG Manual blood lymphocytes/100 leukocytes 9 % NRG Bacterial blood culture - 01/10/19 04:24 Bacterial blood culture NG NRG Bacterial blood culture - 01/10/19 04:28 Bacterial blood culture NG NRG Bacterial blood culture - 01/10/19 04:33 Bacterial blood culture NG NRG Complete urinalysis with reflex to cultu re - 01/10/19 04:35 Urine color determination MAHAMED NRG Urine clarity determination SLIGHTLY CLOUDY NRG Urine pH measurement by test strip 7 5-9 Specific gravity of urine by test strip 1.010 1.016-1.022 Urine protein assay by test strip, semi-quantitative 2+ NEGATIVE Urine glucose detection by automated test strip NE GATIVE NEGATIVE Erythrocytes detection in urine sediment by light micr oscopy 5+ NEGATIVE Urine ketones detection by automated test strip NE GATIVE NEGATIVE Urine nitrite detection by test strip NEGATIVE NEGATIVE Urine total bilirubin detection by test strip NEGA TIVE NEGATIVE Urine urobilinogen measurement by automated test strip (mass/volume) NORMAL NORMAL Urine leukocyte esterase detection by dipstick 1+ NEGATIVE Automated urine sediment erythrocyte cou nt by microscopy (number/high power field) > [HPF] NRG Automated urine sediment leukocyte count by microscopy (number/high power field) [HPF] NRG Bacteria detection in urine sediment by light microsco py TRACE NRG Squamous epithelial cells detection in u rine sediment by light microscopy NONE NRG Crystals detection in urine sediment by light microsco py NONE NRG Casts detection in urine sediment by light microscopy NONE NRG Mucus detection in urine sediment by light microscopy NEGATIVE NRG Complete urinalysis with reflex to culture NO NRG Methicillin resistant Staphylococcus aur eus (MRSA) screening culture - 01/10/19 04:35 Methicillin resistant Staphylococcus aureus (MRSA) scr eening culture NEG NRG Capillary blood glucose measurement by g lucometer (mass/volume) - 01/10/19 11:39 Capillary blood glucose measurement by glucometer (mas s/volume) 163 mg/dL 70-110 Capillary blood glucose measurement by g lucometer (mass/volume) - 01/10/19 16:40 Capillary blood glucose measurement by glucometer (mas s/volume) 164 mg/dL 70-110 Capillary blood glucose measurement by g lucometer (mass/volume) - 01/10/19 21:44 Capillary blood glucose measurement by glucometer (mas s/volume) 137 mg/dL 70-110 Complete blood count (CBC) with automate d white blood cell (WBC) differential - 01/11/19 03:30 Blood leukocytes automated count (number/volume) 16.9 10*3/uL 4.3-11.0 Blood erythrocytes automated count (number/volume) 3.80 10*6/uL 4.35-5.85 Venous blood hemoglobin measurement (mass/volume) 12.0 g/dL 11.5-16.0 Blood hematocrit (volume fraction) 36 % 35-52 Automated erythrocyte mean corpuscular volume 95 [ foz_us] 80-99 Automated erythrocyte mean corpuscular h emoglobin (mass per erythrocyte) 32 pg 25-34 Automated erythrocyte mean corpuscular h emoglobin concentration measurement (mass/volume) 33 g/dL 32-36 Automated erythrocyte distribution width ratio 13. 9 % 10.0- 14.5 Automated blood platelet count (count/volume) 270 10*3/uL 130-400 Automated blood platelet mean volume measurement 9.8 [foz_us] 7.4-10.4 Automated blood neutrophils/100 leukocytes 72 % 42-75 Automated blood lymphocytes/100 leukocytes 14 % 12-44 Blood monocytes/100 leukocytes 14 % 0-12 Automated blood eosinophils/100 leukocytes 1 % 0-10 Automated blood basophils/100 leukocytes 0 % 0-10 Blood neutrophils automated count (number/volume) 12.2 10*3 1.8-7.8 Blood lymphocytes automated count (number/volume) 2.3 10*3 1.0-4.0 Blood monocytes automated count (number/volume) 2. 4 10*3 0.0-1.0 Automated eosinophil count 0.1 10*3/uL 0 .0-0.3 Automated blood basophil count (count/volume) 0.0 10*3/uL 0.0-0.1 Whole blood basic metabolic panel - 12/24 05/14 03:30 Serum or plasma sodium measurement (moles/volume) 137 mmol/L 135-145 Serum or plasma potassium measurement (moles/volume) 3.8 mmol/L 3.6-5.0 Serum or plasma chloride measurement (moles/volume) 101 mmol/L 98-107 Carbon dioxide 25 mmol/L 21-32 Serum or plasma anion gap determination (moles/volume) 11 mmol/L 5-14 Serum or plasma urea nitrogen measurement (mass/volume ) 15 mg/dL 7-18 Serum or plasma creatinine measurement (mass/volume) 0.78 mg/dL 0.60-1.30 Serum or plasma urea nitrogen/creatinine mass ratio 19 NRG Serum or plasma creatinine measurement w ith calculation of estimated glomerular filtration rate > NRG Serum or plasma glucose measurement (mass/volume) 125 mg/dL 70-105 Serum or plasma calcium measurement (mass/volume) 8.6 mg/dL 8.5-10.1 Serum or plasma phosphate measurement (m ass/volume) - 01/11/19 03:30 Serum or plasma phosphate measurement (mass/volume) 2.5 mg/dL 2.3-4.7 Magnesium - 01/11/19 03:30 Magnesium 2.0 mg/dL 1.8-2.4 Capillary blood glucose measurement by g lucometer (mass/volume) - 01/11/19 11:04 Capillary blood glucose measurement by glucometer (mas s/volume) 222 mg/dL 70-110 Capillary blood glucose measurement by g lucometer (mass/volume) - 01/11/19 15:39 Capillary blood glucose measurement by glucometer (mas s/volume) 187 mg/dL 70-110 Capillary blood glucose measurement by g lucometer (mass/volume) - 01/11/19 19:58 Capillary blood glucose measurement by glucometer (mas s/volume) 177 mg/dL 70-110 Complete blood count (CBC) with automate d white blood cell (WBC) differential - 01/12/19 05:05 Blood leukocytes automated count (number/volume) 15.5 10*3/uL 4.3-11.0 Blood erythrocytes automated count (number/volume) 3.82 10*6/uL 4.35-5.85 Venous blood hemoglobin measurement (mass/volume) 12.1 g/dL 11.5-16.0 Blood hematocrit (volume fraction) 37 % 35-52 Automated erythrocyte mean corpuscular volume 97 [ foz_us] 80-99 Automated erythrocyte mean corpuscular h emoglobin (mass per erythrocyte) 32 pg 25-34 Automated erythrocyte mean corpuscular h emoglobin concentration measurement (mass/volume) 33 g/dL 32-36 Automated erythrocyte distribution width ratio 13. 9 % 10.0- 14.5 Automated blood platelet count (count/volume) 260 10*3/uL 130-400 Automated blood platelet mean volume measurement 9.8 [foz_us] 7.4-10.4 Automated blood neutrophils/100 leukocytes 70 % 42-75 Automated blood lymphocytes/100 leukocytes 16 % 12-44 Blood monocytes/100 leukocytes 13 % 0-12 Automated blood eosinophils/100 leukocytes 2 % 0-10 Automated blood basophils/100 leukocytes 0 % 0-10 Blood neutrophils automated count (number/volume) 10.8 10*3 1.8-7.8 Blood lymphocytes automated count (number/volume) 2.4 10*3 1.0-4.0 Blood monocytes automated count (number/volume) 2. 0 10*3 0.0-1.0 Automated eosinophil count 0.2 10*3/uL 0 .0-0.3 Automated blood basophil count (count/volume) 0.0 10*3/uL 0.0-0.1 Comprehensive metabolic panel - 01/12/19 05:05 Serum or plasma sodium measurement (moles/volume) 136 mmol/L 135-145 Serum or plasma potassium measurement (moles/volume) 3.7 mmol/L 3.6-5.0 Serum or plasma chloride measurement (moles/volume) 103 mmol/L 98-107 Carbon dioxide 25 mmol/L 21-32 Serum or plasma anion gap determination (moles/volume) 8 mmol/L 5-14 Serum or plasma urea nitrogen measurement (mass/volume ) 13 mg/dL 7-18 Serum or plasma creatinine measurement (mass/volume) 0.74 mg/dL 0.60-1.30 Serum or plasma urea nitrogen/creatinine mass ratio 18 NRG Serum or plasma creatinine measurement w ith calculation of estimated glomerular filtration rate > NRG Serum or plasma glucose measurement (mass/volume) 122 mg/dL 70-105 Serum or plasma calcium measurement (mass/volume) 8.5 mg/dL 8.5-10.1 Serum or plasma total bilirubin measurement (mass/volu me) 0.6 mg/dL 0.1-1.0 Serum or plasma alkaline phosphatase lakisha surement (enzymatic activity/volume) 63 U/L 40-136 Serum or plasma aspartate aminotransfera se measurement (enzymatic activity/volume) 25 U/L 5-34 Serum or plasma alanine aminotransferase measurement (enzymatic activity/volume) 40 U/L 0-55 Serum or plasma protein measurement (mass/volume) 5.2 g/dL 6.4-8.2 Serum or plasma albumin measurement (mass/volume) 3.1 g/dL 3.2-4.5 CALCIUM CORRECTED 9.2 mg/dL 8.5-10.1 Serum or plasma phosphate measurement (m ass/volume) - 01/12/19 05:05 Serum or plasma phosphate measurement (mass/volume) 2.5 mg/dL 2.3-4.7 Magnesium - 01/12/19 05:05 Magnesium 2.2 mg/dL 1.8-2.4 Serum or plasma lithium measurement (mol es/volume) - 01/12/19 05:05 BNP level 540.2 pg/mL <100.0 Capillary blood glucose measurement by g lucometer (mass/volume) - 01/12/19 10:45 Capillary blood glucose measurement by glucometer (mas s/volume) 207 mg/dL 70-110 Capillary blood glucose measurement by g lucometer (mass/volume) - 01/12/19 16:46 Capillary blood glucose measurement by glucometer (mas s/volume) 123 mg/dL 70-110 Capillary blood glucose measurement by g lucometer (mass/volume) - 01/12/19 21:50 Capillary blood glucose measurement by glucometer (mas s/volume) 130 mg/dL 70-110 Complete blood count (CBC) with automate d white blood cell (WBC) differential - 01/13/19 05:25 Blood leukocytes automated count (number/volume) 14.3 10*3/uL 4.3-11.0 Blood erythrocytes automated count (number/volume) 3.68 10*6/uL 4.35-5.85 Venous blood hemoglobin measurement (mass/volume) 11.5 g/dL 11.5-16.0 Blood hematocrit (volume fraction) 36 % 35-52 Automated erythrocyte mean corpuscular volume 97 [ foz_us] 80-99 Automated erythrocyte mean corpuscular h emoglobin (mass per erythrocyte) 31 pg 25-34 Automated erythrocyte mean corpuscular h emoglobin concentration measurement (mass/volume) 32 g/dL 32-36 Automated erythrocyte distribution width ratio 13. 8 % 10.0- 14.5 Automated blood platelet count (count/volume) 269 10*3/uL 130-400 Automated blood platelet mean volume measurement 10.1 [foz_us] 7.4-10.4 Automated blood neutrophils/100 leukocytes 70 % 42-75 Automated blood lymphocytes/100 leukocytes 16 % 12-44 Blood monocytes/100 leukocytes 13 % 0-12 Automated blood eosinophils/100 leukocytes 1 % 0-10 Automated blood basophils/100 leukocytes 0 % 0-10 Blood neutrophils automated count (number/volume) 9.9 10*3 1.8-7.8 Blood lymphocytes automated count (number/volume) 2.3 10*3 1.0-4.0 Blood monocytes automated count (number/volume) 1. 9 10*3 0.0-1.0 Automated eosinophil count 0.2 10*3/uL 0 .0-0.3 Automated blood basophil count (count/volume) 0.0 10*3/uL 0.0-0.1 Comprehensive metabolic panel - 01/13/19 05:25 Serum or plasma sodium measurement (moles/volume) 139 mmol/L 135-145 Serum or plasma potassium measurement (moles/volume) 3.5 mmol/L 3.6-5.0 Serum or plasma chloride measurement (moles/volume) 105 mmol/L 98-107 Carbon dioxide 23 mmol/L 21-32 Serum or plasma anion gap determination (moles/volume) 11 mmol/L 5-14 Serum or plasma urea nitrogen measurement (mass/volume ) 9 mg/dL 7-18 Serum or plasma creatinine measurement (mass/volume) 0.67 mg/dL 0.60-1.30 Serum or plasma urea nitrogen/creatinine mass ratio 13 NRG Serum or plasma creatinine measurement w ith calculation of estimated glomerular filtration rate > NRG Serum or plasma glucose measurement (mass/volume) 108 mg/dL 70-105 Serum or plasma calcium measurement (mass/volume) 8.4 mg/dL 8.5-10.1 Serum or plasma total bilirubin measurement (mass/volu me) 0.9 mg/dL 0.1-1.0 Serum or plasma alkaline phosphatase lakisha surement (enzymatic activity/volume) 57 U/L 40-136 Serum or plasma aspartate aminotransfera se measurement (enzymatic activity/volume) 34 U/L 5-34 Serum or plasma alanine aminotransferase measurement (enzymatic activity/volume) 38 U/L 0-55 Serum or plasma protein measurement (mass/volume) 5.0 g/dL 6.4-8.2 Serum or plasma albumin measurement (mass/volume) 3.1 g/dL 3.2-4.5 CALCIUM CORRECTED 9.1 mg/dL 8.5-10.1 Capillary blood glucose measurement by g lucometer (mass/volume) - 01/13/19 05:28 Capillary blood glucose measurement by glucometer (mas s/volume) 115 mg/dL 70-110 Capillary blood glucose measurement by g lucometer (mass/volume) - 01/13/19 12:00 Capillary blood glucose measurement by glucometer (mas s/volume) 188 mg/dL 70-110 Capillary blood glucose measurement by g lucometer (mass/volume) - 01/13/19 16:33 Capillary blood glucose measurement by glucometer (mas s/volume) 129 mg/dL 70-110 Capillary blood glucose measurement by g lucometer (mass/volume) - 01/13/19 20:20 Capillary blood glucose measurement by glucometer (mas s/volume) 187 mg/dL 70-110 Capillary blood glucose measurement by g lucometer (mass/volume) - 01/14/19 05:06 Capillary blood glucose measurement by glucometer (mas s/volume) 181 mg/dL 70-110 Complete blood count (CBC) with automate d white blood cell (WBC) differential - 01/14/19 05:25 Blood leukocytes automated count (number/volume) 14.0 10*3/uL 4.3-11.0 Blood erythrocytes automated count (number/volume) 3.45 10*6/uL 4.35-5.85 Venous blood hemoglobin measurement (mass/volume) 10.9 g/dL 11.5-16.0 Blood hematocrit (volume fraction) 33 % 35-52 Automated erythrocyte mean corpuscular volume 97 [ foz_us] 80-99 Automated erythrocyte mean corpuscular h emoglobin (mass per erythrocyte) 32 pg 25-34 Automated erythrocyte mean corpuscular h emoglobin concentration measurement (mass/volume) 33 g/dL 32-36 Automated erythrocyte distribution width ratio 13. 5 % 10.0- 14.5 Automated blood platelet count (count/volume) 269 10*3/uL 130-400 Automated blood platelet mean volume measurement 9.8 [foz_us] 7.4-10.4 Automated blood neutrophils/100 leukocytes 70 % 42-75 Automated blood lymphocytes/100 leukocytes 16 % 12-44 Blood monocytes/100 leukocytes 13 % 0-12 Automated blood eosinophils/100 leukocytes 2 % 0-10 Automated blood basophils/100 leukocytes 0 % 0-10 Blood neutrophils automated count (number/volume) 9.7 10*3 1.8-7.8 Blood lymphocytes automated count (number/volume) 2.2 10*3 1.0-4.0 Blood monocytes automated count (number/volume) 1. 9 10*3 0.0-1.0 Automated eosinophil count 0.2 10*3/uL 0 .0-0.3 Automated blood basophil count (count/volume) 0.0 10*3/uL 0.0-0.1 Comprehensive metabolic panel - 01/14/19 05:25 Serum or plasma sodium measurement (moles/volume) 139 mmol/L 135-145 Serum or plasma potassium measurement (moles/volume) 3.7 mmol/L 3.6-5.0 Serum or plasma chloride measurement (moles/volume) 106 mmol/L 98-107 Carbon dioxide 23 mmol/L 21-32 Serum or plasma anion gap determination (moles/volume) 10 mmol/L 5-14 Serum or plasma urea nitrogen measurement (mass/volume ) 7 mg/dL 7-18 Serum or plasma creatinine measurement (mass/volume) 0.67 mg/dL 0.60-1.30 Serum or plasma urea nitrogen/creatinine mass ratio 10 NRG Serum or plasma creatinine measurement w ith calculation of estimated glomerular filtration rate > NRG Serum or plasma glucose measurement (mass/volume) 171 mg/dL 70-105 Serum or plasma calcium measurement (mass/volume) 8.3 mg/dL 8.5-10.1 Serum or plasma total bilirubin measurement (mass/volu me) 0.9 mg/dL 0.1-1.0 Serum or plasma alkaline phosphatase lakisha surement (enzymatic activity/volume) 61 U/L 40-136 Serum or plasma aspartate aminotransfera se measurement (enzymatic activity/volume) 41 U/L 5-34 Serum or plasma alanine aminotransferase measurement (enzymatic activity/volume) 54 U/L 0-55 Serum or plasma protein measurement (mass/volume) 5.1 g/dL 6.4-8.2 Serum or plasma albumin measurement (mass/volume) 3.1 g/dL 3.2-4.5 CALCIUM CORRECTED 9.0 mg/dL 8.5-10.1 Capillary blood glucose measurement by g lucometer (mass/volume) - 01/14/19 11:06 Capillary blood glucose measurement by glucometer (mas s/volume) 149 mg/dL 70-110 Capillary blood glucose measurement by g lucometer (mass/volume) - 01/14/19 15:26 Capillary blood glucose measurement by glucometer (mas s/volume) 149 mg/dL 70-110 Capillary blood glucose measurement by g lucometer (mass/volume) - 01/14/19 20:51 Capillary blood glucose measurement by glucometer (mas s/volume) 175 mg/dL 70-110 Capillary blood glucose measurement by g lucometer (mass/volume) - 01/15/19 05:57 Capillary blood glucose measurement by glucometer (mas s/volume) 148 mg/dL 70-110 Capillary blood glucose measurement by g lucometer (mass/volume) - 01/15/19 11:07 Capillary blood glucose measurement by glucometer (mas s/volume) 145 mg/dL 70-110 Capillary blood glucose measurement by g lucometer (mass/volume) - 01/15/19 15:31 Capillary blood glucose measurement by glucometer (mas s/volume) 167 mg/dL 70-110 Capillary blood glucose measurement by g lucometer (mass/volume) - 01/15/19 20:43 Capillary blood glucose measurement by glucometer (mas s/volume) 163 mg/dL 70-110 Capillary blood glucose measurement by g lucometer (mass/volume) - 01/16/19 05:28 Capillary blood glucose measurement by glucometer (mas s/volume) 130 mg/dL 70-110 Capillary blood glucose measurement by g lucometer (mass/volume) - 01/16/19 10:53 Capillary blood glucose measurement by glucometer (mas s/volume) 169 mg/dL 70-110 Capillary blood glucose measurement by g lucometer (mass/volume) - 01/16/19 23:58 Capillary blood glucose measurement by glucometer (mas s/volume) 231 mg/dL 70-110 Capillary blood glucose measurement by g lucometer (mass/volume) - 01/17/19 05:03 Capillary blood glucose measurement by glucometer (mas s/volume) 102 mg/dL 70-110 Complete blood count (CBC) with automate d white blood cell (WBC) differential - 01/22/19 09:20 Blood leukocytes automated count (number/volume) 7.8 10*3/uL 4.3-11.0 Blood erythrocytes automated count (number/volume) 3.79 10*6/uL 4.35-5.85 Venous blood hemoglobin measurement (mass/volume) 11.8 g/dL 11.5-16.0 Blood hematocrit (volume fraction) 37 % 35-52 Automated erythrocyte mean corpuscular volume 97 [ foz_us] 80-99 Automated erythrocyte mean corpuscular h emoglobin (mass per erythrocyte) 31 pg 25-34 Automated erythrocyte mean corpuscular h emoglobin concentration measurement (mass/volume) 32 g/dL 32-36 Automated erythrocyte distribution width ratio 12. 9 % 10.0- 14.5 Automated blood platelet count (count/volume) 339 10*3/uL 130-400 Automated blood platelet mean volume measurement 9.3 [foz_us] 7.4-10.4 Automated blood neutrophils/100 leukocytes 72 % 42-75 Automated blood lymphocytes/100 leukocytes 17 % 12-44 Blood monocytes/100 leukocytes 8 % 0-12 Automated blood eosinophils/100 leukocytes 2 % 0-10 Automated blood basophils/100 leukocytes 1 % 0-10 Blood neutrophils automated count (number/volume) 5.6 10*3 1.8-7.8 Blood lymphocytes automated count (number/volume) 1.3 10*3 1.0-4.0 Blood monocytes automated count (number/volume) 0. 7 10*3 0.0-1.0 Automated eosinophil count 0.2 10*3/uL 0 .0-0.3 Automated blood basophil count (count/volume) 0.1 10*3/uL 0.0-0.1 PT panel in platelet poor plasma by coag ulation assay - 01/22/19 09:20 Prothrombin time (PT) in platelet poor plasma by coagu lation assay 13.0 s 12.2-14.7 INR in platelet poor plasma or blood by coagulation as say 1.0 0.8-1.4 Activated partial thromboplastin time (a PTT) in platelet poor plasma bycoagulation assay - 01/22/19 09:20 Activated partial thromboplastin time (a PTT) in platelet poor plasma bycoagulation assay 32 s 24-35 Comprehensive metabolic panel - 01/22/19 09:20 Serum or plasma sodium measurement (moles/volume) 141 mmol/L 135-145 Serum or plasma potassium measurement (moles/volume) 3.1 mmol/L 3.6-5.0 Serum or plasma chloride measurement (moles/volume) 102 mmol/L 98-107 Carbon dioxide 25 mmol/L 21-32 Serum or plasma anion gap determination (moles/volume) 14 mmol/L 5-14 Serum or plasma urea nitrogen measurement (mass/volume ) 7 mg/dL 7-18 Serum or plasma creatinine measurement (mass/volume) 0.57 mg/dL 0.60-1.30 Serum or plasma urea nitrogen/creatinine mass ratio 12 NRG Serum or plasma creatinine measurement w ith calculation of estimated glomerular filtration rate > NRG Serum or plasma glucose measurement (mass/volume) 182 mg/dL 70-105 Serum or plasma calcium measurement (mass/volume) 8.8 mg/dL 8.5-10.1 Serum or plasma total bilirubin measurement (mass/volu me) 0.6 mg/dL 0.1-1.0 Serum or plasma alkaline phosphatase lakisha surement (enzymatic activity/volume) 86 U/L 40-136 Serum or plasma aspartate aminotransfera se measurement (enzymatic activity/volume) 24 U/L 5-34 Serum or plasma alanine aminotransferase measurement (enzymatic activity/volume) 58 U/L 0-55 Serum or plasma protein measurement (mass/volume) 6.3 g/dL 6.4-8.2 Serum or plasma albumin measurement (mass/volume) 3.7 g/dL 3.2-4.5 CALCIUM CORRECTED 9.0 mg/dL 8.5-10.1 Magnesium - 01/22/19 09:20 Magnesium 1.3 mg/dL 1.8-2.4 Myoglobin, serum - 01/22/19 09:20 Myoglobin, serum 26.7 ng/mL 10.0-92.0 Lipase - 01/22/19 09:20 Lipase 46 U/L 8-78 PROBNP FS - 01/22/19 09:20 PROBNP FS 3387.0 pg/mL <75.0 TROPONIN T - 01/22/19 09:20 TROPONIN T 72 % <=10 Bacterial blood culture - 01/22/19 09:50 Bacterial blood culture NG NRG Complete urinalysis with reflex to cultu re - 01/22/19 10:25 Urine color determination YELLOW NRG Urine clarity determination CLEAR NR G Urine pH measurement by test strip 6.5 5-9 Specific gravity of urine by test strip <= 1.016-1.022 Urine protein assay by test strip, semi-quantitative NEGATIVE NEGATIVE Urine glucose detection by automated test strip NE GATIVE NEGATIVE Erythrocytes detection in urine sediment by light micr oscopy NEGATIVE NEGATIVE Urine ketones detection by automated test strip NE GATIVE NEGATIVE Urine nitrite detection by test strip NEGATIVE NEGATIVE Urine total bilirubin detection by test strip NEGA TIVE NEGATIVE Urine urobilinogen measurement by automated test strip (mass/volume) 0.2 mg/dL NORMAL Urine leukocyte esterase detection by dipstick TRA CE NEGATIVE Automated urine sediment erythrocyte cou nt by microscopy (number/high power field) NONE NRG Automated urine sediment leukocyte count by microscopy (number/high power field) [HPF] NRG Bacteria detection in urine sediment by light microsco py FEW NRG Squamous epithelial cells detection in u rine sediment by light microscopy 10-25 NRG Crystals detection in urine sediment by light microsco py NONE NRG Casts detection in urine sediment by light microscopy NONE NRG Mucus detection in urine sediment by light microscopy NEGATIVE NRG Complete urinalysis with reflex to culture NO NRG Blood lactic acid measurement (moles/vol ume) - 01/22/19 10:40 Blood lactic acid measurement (moles/volume) 2.33 mmol/L 0.50-2.00 Bacterial blood culture - 01/22/19 10:40 Bacterial blood culture NG NRG TROPONIN T - 01/22/19 11:55 TROPONIN T 63 % <=10 Methicillin resistant Staphylococcus aur eus (MRSA) screening culture - 01/22/19 14:10 Methicillin resistant Staphylococcus aureus (MRSA) scr eening culture NEG NRG Serum or plasma phosphate measurement (m ass/volume) - 01/22/19 14:28 Serum or plasma phosphate measurement (mass/volume) 3.9 mg/dL 2.3-4.7 Serum or plasma troponin i.cardiac measu rement (mass/volume) - 01/22/19 14:28 Serum or plasma troponin i.cardiac measurement (mass/v olume) 0.045 ng/mL <0.028 Complete blood count (CBC) with automate d white blood cell (WBC) differential - 01/22/19 14:50 Blood leukocytes automated count (number/volume) 7.2 10*3/uL 4.3-11.0 Blood erythrocytes automated count (number/volume) 3.59 10*6/uL 4.35-5.85 Venous blood hemoglobin measurement (mass/volume) 11.2 g/dL 11.5-16.0 Blood hematocrit (volume fraction) 35 % 35-52 Automated erythrocyte mean corpuscular volume 97 [ foz_us] 80-99 Automated erythrocyte mean corpuscular h emoglobin (mass per erythrocyte) 31 pg 25-34 Automated erythrocyte mean corpuscular h emoglobin concentration measurement (mass/volume) 32 g/dL 32-36 Automated erythrocyte distribution width ratio 13. 2 % 10.0- 14.5 Automated blood platelet count (count/volume) 315 10*3/uL 130-400 Automated blood platelet mean volume measurement 9.5 [foz_us] 7.4-10.4 Automated blood neutrophils/100 leukocytes 78 % 42-75 Automated blood lymphocytes/100 leukocytes 14 % 12-44 Blood monocytes/100 leukocytes 8 % 0-12 Automated blood eosinophils/100 leukocytes 1 % 0-10 Automated blood basophils/100 leukocytes 0 % 0-10 Blood neutrophils automated count (number/volume) 5.6 10*3 1.8-7.8 Blood lymphocytes automated count (number/volume) 1.0 10*3 1.0-4.0 Blood monocytes automated count (number/volume) 0. 6 10*3 0.0-1.0 Automated eosinophil count 0.1 10*3/uL 0 .0-0.3 Automated blood basophil count (count/volume) 0.0 10*3/uL 0.0-0.1 Serum or plasma lactate measurement (mol es/volume) - 01/22/19 14:50 Serum or plasma lactate measurement (moles/volume) 1.18 mmol/L 0.50-2.00 Capillary blood glucose measurement by g lucometer (mass/volume) - 01/22/19 16:16 Capillary blood glucose measurement by glucometer (mas s/volume) 122 mg/dL 70-110 Capillary blood glucose measurement by g lucometer (mass/volume) - 01/22/19 20:58 Capillary blood glucose measurement by glucometer (mas s/volume) 145 mg/dL 70-110 Automated blood complete blood count (he mogram) panel - 01/23/19 02:59 Blood leukocytes automated count (number/volume) 7.5 10*3/uL 4.3-11.0 Blood erythrocytes automated count (number/volume) 3.27 10*6/uL 4.35-5.85 Venous blood hemoglobin measurement (mass/volume) 10.3 g/dL 11.5-16.0 Blood hematocrit (volume fraction) 32 % 35-52 Automated erythrocyte mean corpuscular volume 97 [ foz_us] 80-99 Automated erythrocyte mean corpuscular h emoglobin (mass per erythrocyte) 31 pg 25-34 Automated erythrocyte mean corpuscular h emoglobin concentration measurement (mass/volume) 32 g/dL 32-36 Automated erythrocyte distribution width ratio 13. 3 % 10.0- 14.5 Automated blood platelet count (count/volume) 312 10*3/uL 130-400 Automated blood platelet mean volume measurement 9.6 [foz_us] 7.4-10.4 Comprehensive metabolic panel - 01/23/19 02:59 Serum or plasma sodium measurement (moles/volume) 142 mmol/L 135-145 Serum or plasma potassium measurement (moles/volume) 3.3 mmol/L 3.6-5.0 Serum or plasma chloride measurement (moles/volume) 107 mmol/L 98-107 Carbon dioxide 26 mmol/L 21-32 Serum or plasma anion gap determination (moles/volume) 9 mmol/L 5-14 Serum or plasma urea nitrogen measurement (mass/volume ) 8 mg/dL 7-18 Serum or plasma creatinine measurement (mass/volume) 0.64 mg/dL 0.60-1.30 Serum or plasma urea nitrogen/creatinine mass ratio 13 NRG Serum or plasma creatinine measurement w ith calculation of estimated glomerular filtration rate > NRG Serum or plasma glucose measurement (mass/volume) 78 mg/dL 70-105 Serum or plasma calcium measurement (mass/volume) 8.4 mg/dL 8.5-10.1 Serum or plasma total bilirubin measurement (mass/volu me) 0.5 mg/dL 0.1-1.0 Serum or plasma alkaline phosphatase lakisha surement (enzymatic activity/volume) 72 U/L 40-136 Serum or plasma aspartate aminotransfera se measurement (enzymatic activity/volume) 20 U/L 5-34 Serum or plasma alanine aminotransferase measurement (enzymatic activity/volume) 47 U/L 0-55 Serum or plasma protein measurement (mass/volume) 5.4 g/dL 6.4-8.2 Serum or plasma albumin measurement (mass/volume) 3.2 g/dL 3.2-4.5 CALCIUM CORRECTED 9.0 mg/dL 8.5-10.1 Magnesium - 01/23/19 02:59 Magnesium 1.3 mg/dL 1.8-2.4 Serum or plasma troponin i.cardiac measu rement (mass/volume) - 01/23/19 02:59 Serum or plasma troponin i.cardiac measurement (mass/v olume) 0.064 ng/mL <0.028 Lipid 1996 panel - 01/23/19 02:59 Serum or plasma triglyceride measurement (mass/volume) 190 mg/dL <150 Serum or plasma cholesterol measurement (mass/volume) 122 mg/dL < 200 Serum or plasma cholesterol in HDL measurement (mass/v olume) 28 mg/dL 40-60 Cholesterol in LDL [mass/volume] in serum or plasma by direct assay 68 mg/dL 1-129 Serum or plasma cholesterol in VLDL measurement (mass/ volume) 38 mg/dL 5-40 Serum or plasma phosphate measurement (m ass/volume) - 01/23/19 02:59 Serum or plasma phosphate measurement (mass/volume) 4.5 mg/dL 2.3-4.7 Comprehensive metabolic panel - 03/19/19 07:40 Serum or plasma sodium measurement (moles/volume) 136 mmol/L 135-145 Serum or plasma potassium measurement (moles/volume) 3.4 mmol/L 3.6-5.0 Serum or plasma chloride measurement (moles/volume) 98 mmol/L 98-107 Carbon dioxide 22 mmol/L 21-32 Serum or plasma anion gap determination (moles/volume) 16 mmol/L 5-14 Serum or plasma urea nitrogen measurement (mass/volume ) 16 mg/dL 7-18 Serum or plasma creatinine measurement (mass/volume) 0.77 mg/dL 0.60-1.30 Serum or plasma urea nitrogen/creatinine mass ratio 21 NRG Serum or plasma creatinine measurement w ith calculation of estimated glomerular filtration rate > NRG Serum or plasma glucose measurement (mass/volume) 307 mg/dL 70-105 Serum or plasma calcium measurement (mass/volume) 8.9 mg/dL 8.5-10.1 Serum or plasma total bilirubin measurement (mass/volu me) 0.6 mg/dL 0.1-1.0 Serum or plasma alkaline phosphatase lakisha surement (enzymatic activity/volume) 113 U/L 40-136 Serum or plasma aspartate aminotransfera se measurement (enzymatic activity/volume) 35 U/L 5-34 Serum or plasma alanine aminotransferase measurement (enzymatic activity/volume) 44 U/L 0-55 Serum or plasma protein measurement (mass/volume) 6.8 g/dL 6.4-8.2 Serum or plasma albumin measurement (mass/volume) 4.0 g/dL 3.2-4.5 CALCIUM CORRECTED 8.9 mg/dL 8.5-10.1 Magnesium - 03/19/19 07:40 Magnesium 1.7 mg/dL 1.8-2.4 Serum or plasma troponin i.cardiac measu rement (mass/volume) - 03/19/19 07:40 Serum or plasma troponin i.cardiac measurement (mass/v olume) < ng/mL <0.30 PROBNP FS - 03/19/19 07:40 PROBNP FS 5843.0 pg/mL <75.0 Complete blood count (CBC) with automate d white blood cell (WBC) differential - 03/19/19 07:40 Blood leukocytes automated count (number/volume) 21.5 10*3/uL 4.3-11.0 Blood erythrocytes automated count (number/volume) 4.39 10*6/uL 4.35-5.85 Venous blood hemoglobin measurement (mass/volume) 13.2 g/dL 11.5-16.0 Blood hematocrit (volume fraction) 41 % 35-52 Automated erythrocyte mean corpuscular volume 95 [ foz_us] 80-99 Automated erythrocyte mean corpuscular h emoglobin (mass per erythrocyte) 30 pg 25-34 Automated erythrocyte mean corpuscular h emoglobin concentration measurement (mass/volume) 32 g/dL 32-36 Automated erythrocyte distribution width ratio 13. 1 % 10.0- 14.5 Automated blood platelet count (count/volume) 278 10*3/uL 130-400 Automated blood platelet mean volume measurement 11.1 [foz_us] 7.4-10.4 Automated blood neutrophils/100 leukocytes 77 % 42-75 Automated blood lymphocytes/100 leukocytes 12 % 12-44 Blood monocytes/100 leukocytes 11 % 0-12 Automated blood eosinophils/100 leukocytes 0 % 0-10 Automated blood basophils/100 leukocytes 0 % 0-10 Blood neutrophils automated count (number/volume) 16.2 10*3 1.8-7.8 Blood lymphocytes automated count (number/volume) 2.5 10*3 1.0-4.0 Blood monocytes automated count (number/volume) 2. 3 10*3 0.0-1.0 Automated eosinophil count 0.1 10*3/uL 0 .0-0.3 Automated blood basophil count (count/volume) 0.1 10*3/uL 0.0-0.1 Manual absolute plasma cell count - 02/24 01/11 07:40 Blood monocytes/100 leukocytes 9 % NRG Manual blood segmented neutrophils/100 leukocytes 79 % NRG Blood band neutrophils/100 leukocytes 3 % NRG Manual blood lymphocytes/100 leukocytes 11 % NRG Blood erythrocyte morphology finding identification NORMAL NRG Manual blood myelocytes/100 leukocytes 1 % NRG Serum or plasma creatine kinase MB measu rement (enzymatic activity/volume) - 03/19/19 07:40 Serum or plasma creatine kinase MB measu rement (enzymatic activity/volume) 2.7 ng/mL <6.6 Bacterial blood culture - 03/19/19 07:50 Bacterial blood culture NG NRG Bacterial blood culture - 03/19/19 08:50 Bacterial blood culture NG NRG Capillary blood glucose measurement by g lucometer (mass/volume) - 03/19/19 11:57 Capillary blood glucose measurement by glucometer (mas s/volume) 286 mg/dL 70-110 Capillary blood glucose measurement by g lucometer (mass/volume) - 03/19/19 15:27 Capillary blood glucose measurement by glucometer (mas s/volume) 435 mg/dL 70-110 Capillary blood glucose measurement by g lucometer (mass/volume) - 03/19/19 20:50 Capillary blood glucose measurement by glucometer (mas s/volume) 409 mg/dL 70-110 Complete blood count (CBC) with automate d white blood cell (WBC) differential - 03/20/19 03:35 Blood leukocytes automated count (number/volume) 15.5 10*3/uL 4.3-11.0 Blood erythrocytes automated count (number/volume) 4.42 10*6/uL 4.35-5.85 Venous blood hemoglobin measurement (mass/volume) 13.0 g/dL 11.5-16.0 Blood hematocrit (volume fraction) 41 % 35-52 Automated erythrocyte mean corpuscular volume 92 [ foz_us] 80-99 Automated erythrocyte mean corpuscular h emoglobin (mass per erythrocyte) 29 pg 25-34 Automated erythrocyte mean corpuscular h emoglobin concentration measurement (mass/volume) 32 g/dL 32-36 Automated erythrocyte distribution width ratio 13. 4 % 10.0- 14.5 Automated blood platelet count (count/volume) 246 10*3/uL 130-400 Automated blood platelet mean volume measurement 11.1 [foz_us] 7.4-10.4 Automated blood neutrophils/100 leukocytes 87 % 42-75 Automated blood lymphocytes/100 leukocytes 6 % 12-44 Blood monocytes/100 leukocytes 7 % 0-12 Automated blood eosinophils/100 leukocytes 0 % 0-10 Automated blood basophils/100 leukocytes 0 % 0-10 Blood neutrophils automated count (number/volume) 13.5 10*3 1.8-7.8 Blood lymphocytes automated count (number/volume) 0.9 10*3 1.0-4.0 Blood monocytes automated count (number/volume) 1. 1 10*3 0.0-1.0 Automated eosinophil count 0.0 10*3/uL 0 .0-0.3 Automated blood basophil count (count/volume) 0.0 10*3/uL 0.0-0.1 Comprehensive metabolic panel - 03/20/19 03:35 Serum or plasma sodium measurement (moles/volume) 136 mmol/L 135-145 Serum or plasma potassium measurement (moles/volume) 3.6 mmol/L 3.6-5.0 Serum or plasma chloride measurement (moles/volume) 99 mmol/L 98-107 Carbon dioxide 23 mmol/L 21-32 Serum or plasma anion gap determination (moles/volume) 14 mmol/L 5-14 Serum or plasma urea nitrogen measurement (mass/volume ) 17 mg/dL 7-18 Serum or plasma creatinine measurement (mass/volume) 0.79 mg/dL 0.60-1.30 Serum or plasma urea nitrogen/creatinine mass ratio 22 NRG Serum or plasma creatinine measurement w ith calculation of estimated glomerular filtration rate > NRG Serum or plasma glucose measurement (mass/volume) 188 mg/dL 70-105 Serum or plasma calcium measurement (mass/volume) 9.8 mg/dL 8.5-10.1 Serum or plasma total bilirubin measurement (mass/volu me) 0.7 mg/dL 0.1-1.0 Serum or plasma alkaline phosphatase lakisha surement (enzymatic activity/volume) 111 U/L 40-136 Serum or plasma aspartate aminotransfera se measurement (enzymatic activity/volume) 13 U/L 5-34 Serum or plasma alanine aminotransferase measurement (enzymatic activity/volume) 36 U/L 0-55 Serum or plasma protein measurement (mass/volume) 6.7 g/dL 6.4-8.2 Serum or plasma albumin measurement (mass/volume) 3.9 g/dL 3.2-4.5 CALCIUM CORRECTED 9.9 mg/dL 8.5-10.1 Serum or plasma phosphate measurement (m ass/volume) - 03/20/19 03:35 Serum or plasma phosphate measurement (mass/volume) 3.4 mg/dL 2.3-4.7 Magnesium - 03/20/19 03:35 Magnesium 2.1 mg/dL 1.8-2.4 Serum or plasma troponin i.cardiac measu rement (mass/volume) - 03/20/19 03:35 Serum or plasma troponin i.cardiac measurement (mass/v olume) 0.049 ng/mL <0.028 Capillary blood glucose measurement by g lucometer (mass/volume) - 03/20/19 11:21 Capillary blood glucose measurement by glucometer (mas s/volume) 256 mg/dL 70-110 Capillary blood glucose measurement by g lucometer (mass/volume) - 03/20/19 16:27 Capillary blood glucose measurement by glucometer (mas s/volume) 298 mg/dL 70-110 Capillary blood glucose measurement by g lucometer (mass/volume) - 03/20/19 19:55 Capillary blood glucose measurement by glucometer (mas s/volume) 307 mg/dL 70-110 Capillary blood glucose measurement by g lucometer (mass/volume) - 03/21/19 05:53 Capillary blood glucose measurement by glucometer (mas s/volume) 232 mg/dL 70-110 Capillary blood glucose measurement by g lucometer (mass/volume) - 03/21/19 11:13 Capillary blood glucose measurement by glucometer (mas s/volume) 439 mg/dL 70-110 Complete blood count (CBC) with automate d white blood cell (WBC) differential - 05/02/19 15:30 Blood leukocytes automated count (number/volume) 9.3 10*3/uL 4.3-11.0 Blood erythrocytes automated count (number/volume) 4.44 10*6/uL 4.35-5.85 Venous blood hemoglobin measurement (mass/volume) 13.5 g/dL 11.5-16.0 Blood hematocrit (volume fraction) 41 % 35-52 Automated erythrocyte mean corpuscular volume 91 [ foz_us] 80-99 Automated erythrocyte mean corpuscular h emoglobin (mass per erythrocyte) 30 pg 25-34 Automated erythrocyte mean corpuscular h emoglobin concentration measurement (mass/volume) 33 g/dL 32-36 Automated erythrocyte distribution width ratio 13. 6 % 10.0- 14.5 Automated blood platelet count (count/volume) 221 10*3/uL 130-400 Automated blood platelet mean volume measurement 10.7 [foz_us] 7.4-10.4 Automated blood neutrophils/100 leukocytes 59 % 42-75 Automated blood lymphocytes/100 leukocytes 25 % 12-44 Blood monocytes/100 leukocytes 9 % 0-12 Automated blood eosinophils/100 leukocytes 6 % 0-10 Automated blood basophils/100 leukocytes 1 % 0-10 Blood neutrophils automated count (number/volume) 5.5 10*3 1.8-7.8 Blood lymphocytes automated count (number/volume) 2.3 10*3 1.0-4.0 Blood monocytes automated count (number/volume) 0. 9 10*3 0.0-1.0 Automated eosinophil count 0.5 10*3/uL 0 .0-0.3 Automated blood basophil count (count/volume) 0.1 10*3/uL 0.0-0.1 PT panel in platelet poor plasma by coag ulation assay - 05/02/19 15:30 Prothrombin time (PT) in platelet poor plasma by coagu lation assay 12.3 s 12.2-14.7 INR in platelet poor plasma or blood by coagulation as say 0.9 0.8-1.4 Activated partial thromboplastin time (a PTT) in platelet poor plasma bycoagulation assay - 05/02/19 15:30 Activated partial thromboplastin time (a PTT) in platelet poor plasma bycoagulation assay 32 s 24-35 Blood lactic acid measurement (moles/vol ume) - 05/02/19 15:30 Blood lactic acid measurement (moles/volume) 2.14 mmol/L 0.50-2.00 Comprehensive metabolic panel - 05/02/19 15:30 Serum or plasma sodium measurement (moles/volume) 135 mmol/L 135-145 Serum or plasma potassium measurement (moles/volume) 4.6 mmol/L 3.6-5.0 Serum or plasma chloride measurement (moles/volume) 94 mmol/L 98-107 Carbon dioxide 23 mmol/L 21-32 Serum or plasma anion gap determination (moles/volume) 18 mmol/L 5-14 Serum or plasma urea nitrogen measurement (mass/volume ) 17 mg/dL 7-18 Serum or plasma creatinine measurement (mass/volume) 1.06 mg/dL 0.60-1.30 Serum or plasma urea nitrogen/creatinine mass ratio 16 NRG Serum or plasma creatinine measurement w ith calculation of estimated glomerular filtration rate 52 NRG Serum or plasma glucose measurement (mass/volume) 236 mg/dL 70-105 Serum or plasma calcium measurement (mass/volume) 9.4 mg/dL 8.5-10.1 Serum or plasma total bilirubin measurement (mass/volu me) 0.4 mg/dL 0.1-1.0 Serum or plasma alkaline phosphatase lakisha surement (enzymatic activity/volume) 95 U/L 40-136 Serum or plasma aspartate aminotransfera se measurement (enzymatic activity/volume) 17 U/L 5-34 Serum or plasma alanine aminotransferase measurement (enzymatic activity/volume) 18 U/L 0-55 Serum or plasma protein measurement (mass/volume) 6.7 g/dL 6.4-8.2 Serum or plasma albumin measurement (mass/volume) 4.0 g/dL 3.2-4.5 CALCIUM CORRECTED 9.4 mg/dL 8.5-10.1 Serum or plasma troponin i.cardiac measu rement (mass/volume) - 05/02/19 15:30 Serum or plasma troponin i.cardiac measurement (mass/v olume) < ng/mL <0.30 PROBNP FS - 05/02/19 15:30 PROBNP FS 985.3 pg/mL <75.0 Bacterial blood culture - 05/02/19 15:30 Bacterial blood culture NG NRG Bacterial blood culture - 05/02/19 16:21 Bacterial blood culture NG NRG Serum or plasma lactate measurement (mol es/volume) - 05/02/19 17:30 Serum or plasma lactate measurement (moles/volume) 2.04 mmol/L 0.50-2.00 Serum or plasma troponin i.cardiac measu rement (mass/volume) - 05/02/19 17:30 Serum or plasma troponin i.cardiac measurement (mass/v olume) < ng/mL <0.30 Automated blood complete blood count (he mogram) panel - 06/10/19 17:27 Blood leukocytes automated count (number/volume) 10.8 10*3/uL 4.3-11.0 Blood erythrocytes automated count (number/volume) 3.32 10*6/uL 4.35-5.85 Venous blood hemoglobin measurement (mass/volume) 9.6 g/dL 11.5-16.0 Blood hematocrit (volume fraction) 32 % 35-52 Automated erythrocyte mean corpuscular volume 96 [ foz_us] 80-99 Automated erythrocyte mean corpuscular h emoglobin (mass per erythrocyte) 29 pg 25-34 Automated erythrocyte mean corpuscular h emoglobin concentration measurement (mass/volume) 30 g/dL 32-36 Automated erythrocyte distribution width ratio 17. 9 % 10.0- 14.5 Automated blood platelet count (count/volume) 470 10*3/uL 130-400 Automated blood platelet mean volume measurement 9.4 [foz_us] 7.4-10.4 PT panel in platelet poor plasma by coag ulation assay - 06/10/19 17:27 Prothrombin time (PT) in platelet poor plasma by coagu lation assay 15.6 s 12.2-14.7 INR in platelet poor plasma or blood by coagulation as say 1.2 0.8-1.4 Activated partial thromboplastin time (a PTT) in platelet poor plasma bycoagulation assay - 06/10/19 17:27 Activated partial thromboplastin time (a PTT) in platelet poor plasma bycoagulation assay 35 s 24-35 Comprehensive metabolic panel - 06/10/19 17:27 Serum or plasma sodium measurement (moles/volume) 138 mmol/L 135-145 Serum or plasma potassium measurement (moles/volume) 4.5 mmol/L 3.6-5.0 Serum or plasma chloride measurement (moles/volume) 103 mmol/L 98-107 Carbon dioxide 23 mmol/L 21-32 Serum or plasma anion gap determination (moles/volume) 12 mmol/L 5-14 Serum or plasma urea nitrogen measurement (mass/volume ) 28 mg/dL 7-18 Serum or plasma creatinine measurement (mass/volume) 1.39 mg/dL 0.60-1.30 Serum or plasma urea nitrogen/creatinine mass ratio 20 NRG Serum or plasma creatinine measurement w ith calculation of estimated glomerular filtration rate 38 NRG Serum or plasma glucose measurement (mass/volume) 151 mg/dL 70-105 Serum or plasma calcium measurement (mass/volume) 8.8 mg/dL 8.5-10.1 Serum or plasma total bilirubin measurement (mass/volu me) 0.6 mg/dL 0.1-1.0 Serum or plasma alkaline phosphatase lakisha surement (enzymatic activity/volume) 135 U/L 40-136 Serum or plasma aspartate aminotransfera se measurement (enzymatic activity/volume) 22 U/L 5-34 Serum or plasma alanine aminotransferase measurement (enzymatic activity/volume) 46 U/L 0-55 Serum or plasma protein measurement (mass/volume) 6.2 g/dL 6.4-8.2 Serum or plasma albumin measurement (mass/volume) 3.5 g/dL 3.2-4.5 CALCIUM CORRECTED 9.2 mg/dL 8.5-10.1 Serum or plasma lithium measurement (mol es/volume) - 06/10/19 17:27 BNP PT 1329.4 pg/mL <100.0 THYROID STIMULATING HORMONE - 06/10/19 1 7:27 THYROID STIMULATING HORMONE 2.12 u[iU]/mL 0.35-4.94 Activated partial thromboplastin time (a PTT) in platelet poor plasma bycoagulation assay - 06/10/19 21:18 Activated partial thromboplastin time (a PTT) in platelet poor plasma bycoagulation assay 145 s 24-35 Automated blood platelet count (count/vo lume) - 06/11/19 03:20 Automated blood platelet count (count/volume) 416 10*3/uL 130-400 PT panel in platelet poor plasma by coag ulation assay - 06/11/19 03:20 Prothrombin time (PT) in platelet poor plasma by coagu lation assay 14.7 s 12.2-14.7 INR in platelet poor plasma or blood by coagulation as say 1.1 0.8-1.4 Activated partial thromboplastin time (a PTT) in platelet poor plasma bycoagulation assay - 06/11/19 03:20 Activated partial thromboplastin time (a PTT) in platelet poor plasma bycoagulation assay 78 s 24-35 Activated partial thromboplastin time (a PTT) in platelet poor plasma bycoagulation assay - 06/11/19 10:25 Activated partial thromboplastin time (a PTT) in platelet poor plasma bycoagulation assay 80 s 24-35 Capillary blood glucose measurement by g lucometer (mass/volume) - 06/11/19 11:52 Capillary blood glucose measurement by glucometer (mas s/volume) 172 mg/dL 70-110 Capillary blood glucose measurement by g lucometer (mass/volume) - 06/11/19 15:31 Capillary blood glucose measurement by glucometer (mas s/volume) 221 mg/dL 70-110 Capillary blood glucose measurement by g lucometer (mass/volume) - 06/11/19 21:11 Capillary blood glucose measurement by glucometer (mas s/volume) 158 mg/dL 70-110 Automated blood platelet count (count/vo lume) - 06/12/19 03:10 Automated blood platelet count (count/volume) 415 10*3/uL 130-400 PT panel in platelet poor plasma by coag ulation assay - 06/12/19 03:10 Prothrombin time (PT) in platelet poor plasma by coagu lation assay 17.3 s 12.2-14.7 INR in platelet poor plasma or blood by coagulation as say 1.4 0.8-1.4 Whole blood basic metabolic panel - 05/26 04/13 03:10 Serum or plasma sodium measurement (moles/volume) 137 mmol/L 135-145 Serum or plasma potassium measurement (moles/volume) 4.4 mmol/L 3.6-5.0 Serum or plasma chloride measurement (moles/volume) 102 mmol/L 98-107 Carbon dioxide 22 mmol/L 21-32 Serum or plasma anion gap determination (moles/volume) 13 mmol/L 5-14 Serum or plasma urea nitrogen measurement (mass/volume ) 15 mg/dL 7-18 Serum or plasma creatinine measurement (mass/volume) 0.94 mg/dL 0.60-1.30 Serum or plasma urea nitrogen/creatinine mass ratio 16 NRG Serum or plasma creatinine measurement w ith calculation of estimated glomerular filtration rate 60 NRG Serum or plasma glucose measurement (mass/volume) 121 mg/dL 70-105 Serum or plasma calcium measurement (mass/volume) 8.8 mg/dL 8.5-10.1 Magnesium - 06/12/19 03:10 Magnesium 1.7 mg/dL 1.6-2.4 Activated partial thromboplastin time (a PTT) in platelet poor plasma bycoagulation assay - 06/12/19 03:10 Activated partial thromboplastin time (a PTT) in platelet poor plasma bycoagulation assay 86 s 24-35 Capillary blood glucose measurement by g lucometer (mass/volume) - 06/12/19 06:49 Capillary blood glucose measurement by glucometer (mas s/volume) 136 mg/dL 70-110 Capillary blood glucose measurement by g lucometer (mass/volume) - 06/12/19 11:33 Capillary blood glucose measurement by glucometer (mas s/volume) 163 mg/dL 70-110 Capillary blood glucose measurement by g lucometer (mass/volume) - 06/12/19 15:38 Capillary blood glucose measurement by glucometer (mas s/volume) 222 mg/dL 70-110 Activated partial thromboplastin time (a PTT) in platelet poor plasma bycoagulation assay - 06/12/19 16:10 Activated partial thromboplastin time (a PTT) in platelet poor plasma bycoagulation assay 72 s 24-35 Capillary blood glucose measurement by g lucometer (mass/volume) - 06/12/19 20:50 Capillary blood glucose measurement by glucometer (mas s/volume) 187 mg/dL 70-110 Activated partial thromboplastin time (a PTT) in platelet poor plasma bycoagulation assay - 06/12/19 22:30 Activated partial thromboplastin time (a PTT) in platelet poor plasma bycoagulation assay 79 s 24-35 Automated blood complete blood count (he mogram) panel - 06/13/19 03:44 Blood leukocytes automated count (number/volume) 9.2 10*3/uL 4.3-11.0 Blood erythrocytes automated count (number/volume) 3.22 10*6/uL 4.35-5.85 Venous blood hemoglobin measurement (mass/volume) 9.2 g/dL 11.5-16.0 Blood hematocrit (volume fraction) 31 % 35-52 Automated erythrocyte mean corpuscular volume 96 [ foz_us] 80-99 Automated erythrocyte mean corpuscular h emoglobin (mass per erythrocyte) 29 pg 25-34 Automated erythrocyte mean corpuscular h emoglobin concentration measurement (mass/volume) 30 g/dL 32-36 Automated erythrocyte distribution width ratio 18. 0 % 10.0- 14.5 Automated blood platelet count (count/volume) 396 10*3/uL 130-400 Automated blood platelet mean volume measurement 9.6 [foz_us] 7.4-10.4 PT panel in platelet poor plasma by coag ulation assay - 06/13/19 03:44 Prothrombin time (PT) in platelet poor plasma by coagu lation assay 19.5 s 12.2-14.7 INR in platelet poor plasma or blood by coagulation as say 1.6 0.8-1.4 Comprehensive metabolic panel - 06/13/19 03:44 Serum or plasma sodium measurement (moles/volume) 138 mmol/L 135-145 Serum or plasma potassium measurement (moles/volume) 4.8 mmol/L 3.6-5.0 Serum or plasma chloride measurement (moles/volume) 104 mmol/L 98-107 Carbon dioxide 23 mmol/L 21-32 Serum or plasma anion gap determination (moles/volume) 11 mmol/L 5-14 Serum or plasma urea nitrogen measurement (mass/volume ) 13 mg/dL 7-18 Serum or plasma creatinine measurement (mass/volume) 0.99 mg/dL 0.60-1.30 Serum or plasma urea nitrogen/creatinine mass ratio 13 NRG Serum or plasma creatinine measurement w ith calculation of estimated glomerular filtration rate 56 NRG Serum or plasma glucose measurement (mass/volume) 117 mg/dL 70-105 Serum or plasma calcium measurement (mass/volume) 9.0 mg/dL 8.5-10.1 Serum or plasma total bilirubin measurement (mass/volu me) 0.5 mg/dL 0.1-1.0 Serum or plasma alkaline phosphatase lakisha surement (enzymatic activity/volume) 143 U/L 40-136 Serum or plasma aspartate aminotransfera se measurement (enzymatic activity/volume) 16 U/L 5-34 Serum or plasma alanine aminotransferase measurement (enzymatic activity/volume) 31 U/L 0-55 Serum or plasma protein measurement (mass/volume) 6.0 g/dL 6.4-8.2 Serum or plasma albumin measurement (mass/volume) 3.6 g/dL 3.2-4.5 CALCIUM CORRECTED 9.3 mg/dL 8.5-10.1 Capillary blood glucose measurement by g lucometer (mass/volume) - 06/13/19 11:15 Capillary blood glucose measurement by glucometer (mas s/volume) 178 mg/dL 70-110 Capillary blood glucose measurement by g lucometer (mass/volume) - 06/13/19 16:49 Capillary blood glucose measurement by glucometer (mas s/volume) 175 mg/dL 70-110 Capillary blood glucose measurement by g lucometer (mass/volume) - 06/13/19 21:45 Capillary blood glucose measurement by glucometer (mas s/volume) 174 mg/dL 70-110 Activated partial thromboplastin time (a PTT) in platelet poor plasma bycoagulation assay - 06/13/19 22:10 Activated partial thromboplastin time (a PTT) in platelet poor plasma bycoagulation assay 63 s 24-35 Automated blood platelet count (count/vo lume) - 06/14/19 04:15 Automated blood platelet count (count/volume) 372 10*3/uL 130-400 PT panel in platelet poor plasma by coag ulation assay - 06/14/19 04:15 Prothrombin time (PT) in platelet poor plasma by coagu lation assay 20.9 s 12.2-14.7 INR in platelet poor plasma or blood by coagulation as say 1.7 0.8-1.4 Capillary blood glucose measurement by g lucometer (mass/volume) - 06/14/19 06:56 Capillary blood glucose measurement by glucometer (mas s/volume) 118 mg/dL 70-110 Capillary blood glucose measurement by g lucometer (mass/volume) - 06/14/19 12:02 Capillary blood glucose measurement by glucometer (mas s/volume) 128 mg/dL 70-110 PT panel in platelet poor plasma by coag ulation assay - 06/15/19 09:35 Prothrombin time (PT) in platelet poor plasma by coagu lation assay 24.3 s 12.2-14.7 INR in platelet poor plasma or blood by coagulation as say 2.1 0.8-1.4 PT panel in platelet poor plasma by coag ulation assay - 06/16/19 14:11 Prothrombin time (PT) in platelet poor plasma by coagu lation assay 30.9 s 12.2-14.7 INR in platelet poor plasma or blood by coagulation as say 2.8 0.8-1.4 PT panel in platelet poor plasma by coag ulation assay - 06/19/19 08:39 Prothrombin time (PT) in platelet poor plasma by coagu lation assay 40.5 s 12.2-14.7 INR in platelet poor plasma or blood by coagulation as say 4.0 0.8-1.4 PT panel in platelet poor plasma by coag ulation assay - 06/24/19 12:42 Prothrombin time (PT) in platelet poor plasma by coagu lation assay 34.0 s 12.2-14.7 INR in platelet poor plasma or blood by coagulation as say 3.2 0.8-1.4 Complete urinalysis with reflex to cultu re - 06/30/19 13:48 Urine color determination YELLOW NRG Urine clarity determination CLOUDY NR G Urine pH measurement by test strip 6.0 5-9 Specific gravity of urine by test strip 1.010 1.016-1.022 Urine protein assay by test strip, semi-quantitative 2+ NEGATIVE Urine glucose detection by automated test strip NE GATIVE NEGATIVE Erythrocytes detection in urine sediment by light micr oscopy 3+ NEGATIVE Urine ketones detection by automated test strip NE GATIVE NEGATIVE Urine nitrite detection by test strip NEGATIVE NEGATIVE Urine total bilirubin detection by test strip NEGA TIVE NEGATIVE Urine urobilinogen measurement by automated test strip (mass/volume) 0.2 mg/dL NORMAL Urine leukocyte esterase detection by dipstick 2+ NEGATIVE Automated urine sediment erythrocyte cou nt by microscopy (number/high power field) > [HPF] NRG Automated urine sediment leukocyte count by microscopy (number/high power field) > [HPF] NRG Bacteria detection in urine sediment by light microsco py FEW NRG Squamous epithelial cells detection in u rine sediment by light microscopy 2-5 NRG Crystals detection in urine sediment by light microsco py NONE NRG Casts detection in urine sediment by light microscopy NONE NRG Mucus detection in urine sediment by light microscopy NEGATIVE NRG Complete urinalysis with reflex to culture YES NRG Bacterial urine culture - 06/30/19 13:48 Bacterial urine culture GRAM POS M NRG COLONY COUNT 30,000 CFU/ML NRG FTX;REPORTABLE SUSCEPTIBILITY REPORTED 07/02/19 14: 05 NRG Dirithromycin susceptibility test by dis k diffusion - 06/30/19 13:48 Gentamicin susceptibility test by minimum inhibitory c oncentration > NRG Trimethoprim/sulfamethoxazole susceptibi lity test by minimum inhibitoryconcentration > NRG Levofloxacin susceptibility test by minimum inhibitory concentration <= NRG Ampicillin susceptibility test by minimum inhibitory c oncentration > NRG Cefazolin susceptibility test by minimum inhibitory co ncentration 2 NRG Ceftriaxone susceptibility test by minimum inhibitory concentration <= NRG Ciprofloxacin susceptibility test by minimum inhibitor y concentration <= NRG Meropenem susceptibility test by minimum inhibitory co ncentration <= NRG Nitrofurantoin susceptibility test by mi nimum inhibitory concentration <= NRG Amoxicillin and clavulanate potassium susc SYLVIE = NRG PT panel in platelet poor plasma by coag ulation assay - 07/02/19 15:09 Prothrombin time (PT) in platelet poor plasma by coagu lation assay 38.5 s 12.2-14.7 INR in platelet poor plasma or blood by coagulation as say 3.7 0.8-1.4 Encounters ACCT No. Visit Date/Time Discharge Status Pt. Type Provider Facility Loc./Unit Complaint [id number] 03/09/2020 08:17:00 23:59:59 CLS Outpatient ERIN SANTIAGO MD [facility] DIABETES,HYPERSOMNIA,HYPERLIPIDEMIA,JAC [id number] 03/08/2020 11:45:00 23:59:59 CLS Outpatient ERIN SANTIAGO MD [facility] CARD DIABETES,HYPERSOMNIA,HYPERLIPIDEMIA,JAC [id number] 03/08/2020 11:38:00 23:59:59 CLS Outpatient MATTHEW JOE APRN [facility] RAD LUNG SCREENING [id number] 07/02/2019 14:25:00 00:01:00 DIS Outpatient ERIN SANTIAGO MD [facility] LAB FS I48.0 Z51.81 [id number] 08/25/2019 08:41:00 10:15:00 DIS Emergency YASMIN WHITE DO [facility] ER FS FALL; LEWIS SHOULDER INJ [id number] 06/30/2019 13:26:00 23:59:59 CLS Outpatient MARYSOL ROWE MD [facility] LAB FS R30.0 [id number] 06/15/2019 08:59:00 23:59:59 CLS Outpatient AMINAH SEGURA MD [facility] LAB FS I48.0 [id number] 06/11/2019 14:34:00 15:20:00 DIS Inpatient ERIN SANTIAGO MD [facility] CSD AFIB [id number] 05/02/2019 15:02:00 18:13:00 DIS Emergency JOSE LUND MD [facility] ER FS SOB [id number] 03/19/2019 10:53:00 13:40:00 DIS Inpatient DALJIT STALLWORTH DOI V ia [facility] 4TH COPD EXACERBATION CHF EXACERBATION [id number] 03/19/2019 12:47:00 23:59:59 CLS Preadmit MATTHEW JOE APRN [facility] RAD HX OF NICOTINE DEP [id number] 02/24/2019 09:28:00 23:59:59 CLS Outpatient MATTHEW JOE APRN [facility] RAD DYSPNEA [id number] 02/13/2019 10:06:00 23:59:59 CLS Outpatient MERRY TELLO, MIKHAIL Saez [facility] RT CORONARY ARTERY DISEAS E INVOLVING SUN'AQ CORONARY [id number] 02/12/2019 11:44:00 23:59:59 CLS Preadmit MATTHEW JOE APRN [facility] SLEEP SLEEP DISORDER [id number] 01/22/2019 11:59:00 11:40:00 DIS Inpatient YOGESH STALLWORTH DO, [facility] ICU NSTEMI PNEUMONIA [id number] 01/12/2019 10:50:00 10:35:00 DIS Inpatient YOGESH STALLWORTH DO, V [facility] IRF MYOPATHY [id number] 01/01/2019 18:35:00 10:50:00 DIS Inpatient HENOK TELLO, ANDREA Gross [facility] 4TH CHEST PAIN [id number] 03/16/2020 09:00:00 P EN Preadmit JACK TELLO, ERIN Nicholson [facility] CATH ABN STRESS
[2020-03-16 07:24] LABS: HEMOGLOBIN 12.5 G/DL (11.5-16.0); MEAN PLATELET VOLUME 10.4 FL (7.4-10.4); RED CELL DISTRIBUTION WIDTH 14.9 % (10.0-14.5); WHITE BLOOD COUNT 10.2 10^3/uL (4.3-11.0)
[2020-03-16] MEDS ORDERED: RIVA20TA PO (07:29)
[2020-03-16] MEDS ORDERED: LIRA0.6P SQ (07:29)
[2020-03-16] MEDS ORDERED: AMLO5TAB9 PO (07:29)
[2020-03-16 07:40] LABS: ALBUMIN 4.5 GM/DL (3.2-4.5); POTASSIUM 3.5 MMOL/L (3.6-5.0)
[2020-03-16 07:42] LABS: CALCIUM 9.6 MG/DL (8.5-10.1)
[2020-03-16 07:43] LABS: PROTHROMBIN TIME PATIENT 13.7 SEC (12.2-14.7); TOTAL PROTEIN 7.7 GM/DL (6.4-8.2)
[2020-03-16 07:45] LABS: BILIRUBIN,TOTAL 0.9 MG/DL (0.1-1.0)
[2020-03-16 07:46] LABS: CREATININE SERUM 1.19 MG/DL (0.60-1.30)
--- NOTE | 2020-03-16 07:56 | Diagnostic Imaging Report ---
INDICATION: Preop. Chest pain. COMPARISON: 08/25/2019. FINDINGS: There has been slight increase in cardiac size since previous exam. The lungs are well-aerated and clear. No pneumothorax or pleural effusion. Median sternotomy changes are again noted. IMPRESSION: 1. Increased cardiac size with otherwise stable appearing chest. Dictated by: Dictated on workstation # [id number]
[2020-03-16] MEDS ORDERED: fentaNYL INJECTION 100 MCG/2 ML AMP ONE (08:41)
[2020-03-16] MEDS ORDERED: MIDAZOLAM 5 MG/5 ML (VERSED) VIAL ONE (08:41)
--- NOTE | 2020-03-16 08:51 | Cardiac Procedure Note-CS/ASA ---
Pre-Procedure Note Pre-Op Procedure Note H&P Reviewed The H&P was reviewed, patient examined and no changes noted. Date H&P Reviewed: Mar 16, 2020 Time H&P Reviewed: 08:51 Conscious Sedation Pre-Proced Time 08:51 ASA Score 3 For ASA 3 and 4: Consider anesthesia and medical clearance. Also, for patients with a history of failed moderate sedation consider anesthesia. Airway Lungs Heart ASA score ASA 1: a normal healthy patient ASA 2: a patient with a mild systemic disease (mid diabetes, controlled hypertension, obesity x ASA 3: a patient with a severe systemic disease that limits activity (angina, COPD, prior Myocardial infarction) ASA 4: a patient with an incapacitating disease that is a constant threat to life (CHF, renal failure) ASA 5: a moribund patient not expected to survive 24 hrs. (ruptured aneurysm) ASA 6: a declared brain- patient whose organs are being harvested. For emergent operations, add the letter E after the classification Mallampati Classification Grade 3 Sedation Plan Analgesia, Amnesia, Plan communicated to team members, Discussed options with patient/fam, Discussed risks with patient/fam The patient is an appropriate candidate to undergo the planned procedure, sedation, and anesthesia. The patient immediately re-assessed prior to indication. ERIN SANTIAGO MD Mar 16, 2020 08:51
[2020-03-16] MEDS ORDERED: METF-397 PO (09:41)
--- NOTE | 2020-03-16 09:42 | Discharge Inst-Post CATH ---
Discharge Inst-CATH/EP Problems Reviewed?: Yes Post Cardiac Cath/EP D/C Inst Follow Up/Plan Hold metformin for [address]. [address] Em's office in 4 weeks <b>CARDIAC CATH/EP PROCEDURE DISCHARGE INSTRUCTIONS</b> ACTIVITY * Go Home directly and rest. * Limit activity of the leg (or wrist if it was used) for 7 days including aerobics, swimming, jogging, bicycling, etc. * Restrict stair-climbing for 7 days if possible, if not, climb up with your non-cath leg, then bring together on the same step. * Avoid lifting, pushing, pulling or excessive movement of the affected extremity for 7 days. * Customary sexual activity may be resumed after 2 days-use caution not to use a position that strains or causes pain to the affected extremity. * No driving for 24 hours. * NO SMOKING. * Avoid straining for bowel movements for 7 days. * Gentle walking on level ground is allowed. * Returning to work will depend on the type of procedure and the results. Your doctor will discuss this with you. CALL YOUR DOCTOR FOR ANY OF THE FOLLOWING: *If bleeding from the puncture site occurs- Apply gentle pressure to site with clean cloth and call your doctor or EMS. * If a knot or lump forms under the skin, increases in size, or causes pain. * If bruising appears to be worsening or moving further down your leg instead of disappearing. * Temperature above 101 F. CARE OF YOUR GROIN INCISION; * Bruising or purple discoloration of the skin near the puncture site is common. * You may shower only, no bathtub bathing for 5 days. Be careful to avoid slipping as your leg may feel stiff. * If a closure device was used on your femoral artery, please see the attached guide regarding care of the device and your leg. * Leave dressing on FOR 24 hours. CARE OF YOUR WRIST INCISION; * Bruising or purple discoloration of the skin near the puncture site is common. * You may shower. * DO NOT submerge wrist. * Leave dressing on FOR 24 hours. ERIN EM MD Mar 16, 2020 09:42
[2020-03-16] MEDS ORDERED: PATIENT MAY USE OWN MEDS, ALL PO SCH (09:45)
--- NOTE | 2020-03-16 09:49 | Cardiac Cath Report ---
Cardiac Cath Report Physician (s)/Winch Operator (s) Physician ERIN SANTIAGO MD Pre-Procedure Diagnosis Pre-Procedure Diagnosis: coronary artery disease Post-Procedure Note Procedure Start Date: Mar 16, 2020 Name of Procedure: Left heart catheterization Vein graft angiogram BRENNER angiogram Left ventriculogram Findings/Procedure Note PROCEDURE NOTE: 65-year-old lady with history of coronary artery disease, CABG 3 done in April 2019, mitral valve repair, had an abnormal stress test, scheduled for cardiac catheterization possible PTCA. After explaining the procedure to the patient, all pros and cons were explained, all questions were answered. The patient signed the consent and then she was placed on the cardiac catheterization laboratory. Groin was prepped SL fashion local anesthesia was used. Sheath placed in the right femoral artery. Ashish right and left catheter were used to access the coronary system.Vein Graft evaluated. BRENNER evaluated. Pigtail was used to access the left ventricular cavity. Left ventriculogram was done At the end of the procedure the sheath was removed. Closure device was used FINDINGS: Hemodynamics LV 144/40, end-diastolic pressure 40 Aorta 145/76 mean of 104 ANATOMY: Left Main is free of obstructive disease Left Anterior Descending has severe stenosis at the midportion, BRENNER to LAD is patent Left Circumflex has severe stenosis at the long segment in the proper circumflex artery that is very small artery not bypassed and not amendable to intervention, the first obtuse marginal branch has patent stent proximally and patent vein graft to it Right Coronory Artery has severe stenosis at the midportion, vein graft to the right coronary artery is patent BRENNER to LAD is patent with good flow in the distal LAD Vein Graft evaluation showed 2 vein graft Vein graft to the first obtuse marginal/ramus intermedius is patent with excellent flow distally. Vein graft to the right coronary artery is patent with excellent flow distally LV Gram was done showing normal left ventricular size, mild hypokinesia noted diffusely, EF 40-45 percent, ring on the mitral valve was noted, no significant mitral regurgitation CONCLUSION: 1. The proper circumflex artery that is not bypassed has severe long segment stenosis, the artery is a very small artery and not amendable to intervention 2. Severe mid LAD stenosis corrected with the BRENNER to LAD that is providing excellent flow distally 3. Patent stent in the first obtuse marginal/ ramus intermedius with patent vein graft to OM with excellent flow distally 4. Severe stenosis in the mid right coronary artery with patent vein graft to t he distal right coronary artery 5. Patient had mitral valve ring, the valve is functioning normally 6. Prominent left ventricle with diffuse left ventricular hypokinesia, estimated ejection fraction 40-45 percent, elevated left ventricular end- diastolic pressure DISCUSSION AND RECOMMENDATION: Medical therapy is recommended no intervention is warranted, the circumflex artery is a very small artery that has severe stenosis not amendable to intervention at this point Anesthesia Type: Conscious Sedation Estimated blood loss (mL): 25 ml Contrast Amount: 84 ml Total Radiation Dose: 638 mGy Post-Procedure Diagnosis Post-operative diagnosis: Coronary artery disease Congestive heart failure, chronic compensated left ventricular systolic dysfunction, ischemic cardiomyopathy Hypertension Hyperlipidemia ERIN SANTIAGO MD Mar 16, 2020 9:49 am
== END 2020-03-16 14:00 | disposition home or self-care (01) ==
LOC: CATH 06:53 → SDC 10:08 → CATH 14:00
PROVIDERS: ATTEND Internal Medicine Cardiovascular Disease
DX: I25.10 Atherosclerotic heart disease of native coronary artery without angina pectoris (principal); I11.0 Hypertensive heart disease with heart failure; I50.9 Heart failure, unspecified; E78.2 Mixed hyperlipidemia; G47.33 Obstructive sleep apnea (adult) (pediatric); J44.9 Chronic obstructive pulmonary disease, unspecified; I48.91 Unspecified atrial fibrillation; E11.9 Type 2 diabetes mellitus without complications; J18.9 Pneumonia, unspecified organism; R94.39 Abnormal result of other cardiovascular function study; E66.9 Obesity, unspecified; Z68.31 Body mass index [BMI] 31.0-31.9, adult; Z79.51 Long term (current) use of inhaled steroids; Z79.899 Other long term (current) drug therapy; Z79.84 Long term (current) use of oral hypoglycemic drugs; Z90.710 Acquired absence of both cervix and uterus; Z87.891 Personal history of nicotine dependence; Z80.9 Family history of malignant neoplasm, unspecified
CPT/HCPCS: 71045; 80053; 80061; 85027; 85610; 85730; 87081; 93459; C1760; C1894; 36415

== ENCOUNTER 2020-03-30 08:51 | Inpatient (IN) | payer MEDICARE, OTHER ==
[~2020-03-30] VITALS: Ht 182 cm; Wt 107.0 kg
[~2020-03-30 08:51] MED LIST changes: +AMLO5TAB9 PO; +LIRA0.6P SQ; +RIVA20TA PO
--- OUTSIDE RECORDS SUMMARY | 2020-03-30 09:00 | XMS REPORT | Continuity of Care Document ---
Author Organization Unknown Address Unknown Phone Unavailable Allergies Active Description Code Type Severity Reaction Onset Reported/Identified Relationship to Patient Clinical Status Yes No Known Drug Allergies [id number] Drug Allergy Unknown N/A 01/01/2019 Medications There [...] G47.33 OBSTRUCTIVE SLEEP APNEA (ADULT) (PEDIATR 01/04/2019 NADREA WHITING MD Ot I10 ESSENTIAL (PRIMARY) HYPERTENSION [...] G47.33 OBSTRUCTIVE SLEEP APNEA (ADULT) (PEDIATR 01/11/2019 NADREA WHITING MD Ot I10 ESSENTIAL (PRIMARY) HYPERTENSION [...] Ot F17.210 NICOTINE DEPENDENCE, CIGARETTES, UNCOMPL 01/12/2019 NADREA WHITING MD Ot G47.33 OBSTRUCTIVE SLEEP APNEA [...] Ot B37 .0 CANDIDAL STOMATITIS 01/12/2019 ANDREA WHTIING MD Ot E11 .9 TYPE 2 DIABETES [...] YOGESH Ot G93.41 METABOLIC ENCEPHALOPATHY 01/17/2019 DALJIT STALLWORTH DOI Ot I11.0 HYPERTENSIVE HEART DISEASE WITH HEART FA 01/17/2019 DALJIT STALLWORTH DOI Ot I21.4 NON-ST ELEVATION (NSTEMI) MYOCARDIAL INF 01/17/2019 DALJIT STALLWORTH DOI Ot I25.10 ATHSCL HEART DISEASE OF [place] CORONARY 01/17/2019 YOGESH STALLWORTH DO Ot I50.31 [...] Ot I25.11 0 ATHSCL HEART DISEASE OF [place] COR ART W 01/23/2019 YOGESH STALWLORTH DO Ot J44.9 CHRONIC OBSTRUCTIVE PULMONARY DISEASE, U 01/23/2019 YOGESH STALLWORTH DO Ot J98.11 ATELECTASIS 01/23/2019 YOGESH STALLWORTH DO Ot Z68.33 BODY MASS INDEX (BMI) 33.0-33.9, ADULT 01/23/2019 YOGESH STALLWORTH DO Ot Z79.84 MCC (CURRENT) USE OF ORAL HYPOGLYC 01/23/2019 YOGESH STALLWORTH DO Ot Z85.82 0 PERSONAL HISTORY OF MALIGNANT MELANOMA O 01/23/2019 YOGESH STALLWORTH DO Ot Z87.01 PERSONAL HISTORY OF PNEUMONIA (RECURRENT 01/23/2019 YOGESH STALLWORTH DO Ot Z87.89 1 PERSONAL HISTORY OF NICOTINE DEPENDENCE 01/23/2019 YOGESH STALLWORTH DO Ot Z95.5 PRESENCE OF CORONARY ANGIOPLASTY IMPLANT 02/17/2019 MERRY TELLO, MIKHAIL Saez Ot I25.119 ATHSCL HEART DISEASE OF [place] COR ART W 02/23/2019 MATTHEW JOE APRN Ot G47.10 HYPERSOMNIA, UNSPECIFIED 02/25/2019 MATTHEW JOE APRN Ot J18.9 PNEUMONIA, UNSPECIFIED ORGANISM 02/25/2019 MATTHEW JOE APRN Ot J30.9 ALLERGIC RHINITIS, UNSPECIFIED 02/25/2019 MATTHEW JOE APRN Ot J44.9 CHRONIC OBSTRUCTIVE PULMONARY DISEASE, U 02/25/2019 MATTHEW JOE APRN Ot J96.90 RESPIRATORY FAILURE, UNSP, UNSP W HYPOXI 03/05/2019 MERRY TELLO, MIKHAIL Saez Ot I25.119 ATHSCL HEART DISEASE OF [place] COR ART W 03/19/2019 MATTHEW JOE APRN [...] YOGESH Ot I25.10 ATHSCL HEART DISEASE OF [place] CORONARY 03/21/2019 BASIM LOWERY YOGESH Ot I25.11 0 ATHSCL HEART DISEASE OF [place] COR ART W 03/21/2019 BASIM LOWERY YOGESH [...] ADULT 03/21/2019 YOGESH STALLWORTH DO Ot Z79.02 MCC (CURRENT) USE OF ANTITHROMBOTI 03/21/2019 YOGESH STALLWORTH DO Ot Z79.84 MCC (CURRENT) USE OF ORAL HYPOGLYC 03/21/2019 YOGESH [...] Ot I25. 10 ATHSCL HEART DISEASE OF [place] CORONARY 05/02/2019 JOSE LUND MD Ot I50. 9 HEART FAILURE, UNSPECIFIED 05/02/2019 JOSE LUND MD Ot J44. 1 CHRONIC OBSTRUCTIVE PULMONARY DISEASE W 05/02/2019 JOSE LUND MD Ot R06. 02 SHORTNESS OF BREATH 05/02/2019 JOSE LUND MD Ot Z79. 82 SINGING TELEGRAM PERFORMER (CURRENT) USE OF ASPIRIN 05/02/2019 JOSE LUND MD Ot Z79. 84 SINGING TELEGRAM PERFORMER (CURRENT) USE OF ORAL HYPOGLYC 05/02/2019 JOSE [...] Ot I25. 10 ATHSCL HEART DISEASE OF [place] CORONARY 06/13/2019 ERIN SANTIAGO MD Ot I25. [...] Ot I25. 10 ATHSCL HEART DISEASE OF [place] CORONARY 06/14/2019 ERIN SANTIAGO MD Ot I25. [...] Ot I25. 10 ATHSCL HEART DISEASE OF [place] CORONARY 06/14/2019 ERIN SANTIAGO MD Ot I25. [...] 06/14/2019 ERIN SANTIAGO MD Ot Z79. 4 SINGING TELEGRAM PERFORMER (CURRENT) USE OF INSULIN 06/14/2019 ERIN SANTIAGO [...] Ot I25. 10 ATHSCL HEART DISEASE OF [place] CORONARY 06/18/2019 ERIN SANTIAGO MD Ot I25. [...] 06/18/2019 ERIN SANTIAGO MD Ot Z79. 4 SINGING TELEGRAM PERFORMER (CURRENT) USE OF INSULIN 06/18/2019 ERIN SANTIAGO [...] Ot I25. 10 ATHSCL HEART DISEASE OF [place] CORONARY 06/18/2019 ERIN SANTIAGO MD Ot I25. [...] 06/18/2019 ERIN SANTIAGO MD Ot Z79. 4 SINGING TELEGRAM PERFORMER (CURRENT) USE OF INSULIN 06/18/2019 ERIN SANTIAGO [...] Ot E78. 5 HYPERLIPIDEMIA, UNSPECIFIED 06/18/2019 ERIN SANTIAOG MD Ot G47. 30 SLEEP APNEA, UNSPECIFIED 06/18/2019 ERIN SANTIAGO MD Ot I10 ESSENTIAL (PRIMARY) HYPERTENSION 06/18/2019 ERIN SANTIAGO MD Ot I25. 10 ATHSCL HEART DISEASE OF [place] CORONARY 06/18/2019 ERIN SANTIAGO MD Ot I25. [...] 06/18/2019 ERIN SANTIAGO MD Ot Z79. 4 SINGING TELEGRAM PERFORMER (CURRENT) USE OF INSULIN 06/18/2019 ERIN SANTIAGO [...] Ot I25. 10 ATHSCL HEART DISEASE OF [place] CORONARY 06/18/2019 ERIN SANTIAGO MD Ot I25. [...] 06/18/2019 ERIN SANTIAGO MD Ot Z79. 4 MCC (CURRENT) USE OF INSULIN 06/18/2019 ERIN SANTIAGO [...] Ot I25. 10 ATHSCL HEART DISEASE OF [place] CORONARY 08/25/2019 YASMIN WHITE DO Ot I25. [...] 08/25/2019 YASMIN WHITE DO Ot Z79. 01 SINGING TELEGRAM PERFORMER (CURRENT) USE OF ANTICOAGULANT 08/25/2019 YASMIN WHITE DO Ot Z79. 4 SINGING TELEGRAM PERFORMER (CURRENT) USE OF INSULIN 08/25/2019 YASMIN WHITE DO Ot Z79. 51 MCC (CURRENT) USE OF INHALED STERO 08/25/2019 YASMIN WHITE DO Ot Z79. 82 MCC (CURRENT) USE OF ASPIRIN 08/25/2019 YASMIN WHITE [...] TYPE 2 DIABETES MELLITUS WITHOUT COMPLIC 08/28/2019 YASMIN WHITE DO Ot I11. 0 HYPERTENSIVE HEART DISEASE WITH HEART FA 08/28/2019 YASMIN WHITE DO Ot I25. 10 ATHSCL HEART DISEASE OF [place] CORONARY 08/28/2019 YASMIN WHITE DO Ot I25. [...] FRACTURE OF SHAFT OF HUMERUS, LEFT 08/28/2019 YASMIN WHITE DO Ot W01.0XXA FALL SAME LEV FROM SLIP/TRIP W/O STRIKE 08/28/2019 YASMIN WHITE DO Ot Y93. K1 ACTIVITY, WALKING AN ANIMAL 08/28/2019 YASMIN WHITE DO Ot Z23 ENCOUNTER FOR IMMUNIZATION 08/28/2019 YASMIN WHITE DO Ot Z79. 01 MCC (CURRENT) USE OF ANTICOAGULANT 08/28/2019 YASMIN WHITE DO Ot Z79. 4 MCC (CURRENT) USE OF INSULIN 08/28/2019 YASMIN WHITE DO Ot Z79. 51 MCC (CURRENT) USE OF INHALED STERO 08/28/2019 YASMIN WHITE DO Ot Z79. 82 SINGING TELEGRAM PERFORMER (CURRENT) USE OF ASPIRIN 08/28/2019 YASMIN WHITE [...] 09/14/2019 ERIN SANTIAGO MD Ot Z79. 01 SINGING TELEGRAM PERFORMER (CURRENT) USE OF ANTICOAGULANT 09/15/2019 ERIN SANTIAGO MD Ot I48. 0 PAROXYSMAL ATRIAL FIBRILLATION 09/15/2019 ERIN SANTIAGO MD Ot Z51. 81 ENCOUNTER FOR THERAPEUTIC DRUG LEVEL MON 09/15/2019 ERIN SANTIAGO MD Ot Z79. 01 SINGING TELEGRAM PERFORMER (CURRENT) USE OF ANTICOAGULANT 09/20/2019 ERIN SANTIAGO MD Ot I48. 0 PAROXYSMAL ATRIAL FIBRILLATION 09/20/2019 ERIN SANTIAGO MD Ot Z51. 81 ENCOUNTER FOR THERAPEUTIC DRUG LEVEL MON 09/20/2019 ERIN SANTIAGO MD Ot Z79. 01 MCC (CURRENT) USE OF ANTICOAGULANT 02/25/2020 MATTHEW JOE APRN Ot Z87.891 PERSONAL HISTORY OF NICOTINE DEPENDENCE 02/28/2020 MATTHEW JOE APRN Ot Z87.891 PERSONAL HISTORY OF NICOTINE DEPENDENCE 02/29/2020 MATTHEW JOE APRN Ot Z87.891 PERSONAL HISTORY OF NICOTINE DEPENDENCE 03/10/2020 MATTHEW JOE APRN Ot I25.10 ATHSCL HEART DISEASE OF [place] CORONARY 03/10/2020 MATTHEW JOE APRN Ot I51.7 CARDIOMEGALY 03/10/2020 MATTHEW JOE APRN Ot J43.9 EMPHYSEMA, UNSPECIFIED 03/10/2020 MATTHEW JOE APRN Ot M47.814 SPONDYLOSIS W/O MYELOPATHY OR RADICULOPA 03/10/2020 MATTHEW JOE APRN Ot Z12.2 ENCNTR SCREEN FOR MALIGNANT NEOPLASM OF 03/10/2020 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 89 OTHER ILL-DEFINED HEART DISEASES 03/16/2020 ERIN SANTIAGO MD Ot E11. 9 TYPE 2 DIABETES MELLITUS WITHOUT COMPLIC 03/16/2020 ERIN SANTIAGO MD Ot E66. 9 OBESITY, UNSPECIFIED 03/16/2020 ERIN SANTIAGO MD Ot E78. 2 MIXED HYPERLIPIDEMIA 03/16/2020 ERIN SANTIAGO MD Ot G47. 33 OBSTRUCTIVE SLEEP APNEA (ADULT) (PEDIATR 03/16/2020 ERIN SANTIAGO MD Ot I11. 0 HYPERTENSIVE HEART DISEASE WITH HEART FA 03/16/2020 ERIN SANTIAGO MD Ot I25. 10 ATHSCL HEART DISEASE OF [place] CORONARY 03/16/2020 ERIN SANTIAGO MD Ot I48. 91 UNSPECIFIED ATRIAL FIBRILLATION 03/16/2020 ERIN SANTIAGO MD Ot I50. 9 HEART FAILURE, UNSPECIFIED 03/16/2020 ERIN SANTIAGO MD Ot J18. 9 PNEUMONIA, UNSPECIFIED ORGANISM 03/16/2020 ERIN SANTIAGO MD Ot J44. 9 CHRONIC OBSTRUCTIVE PULMONARY DISEASE, U 03/16/2020 ERIN SANTIAGO MD Ot R94. 39 ABNORMAL RESULT OF OTHER CARDIOVASCULAR 03/16/2020 ERIN SANTIAGO MD Ot Z68. 31 BODY MASS INDEX (BMI) 31.0-31.9, ADULT 03/16/2020 ERIN SANTIAGO MD Ot Z79. 51 SINGING TELEGRAM PERFORMER (CURRENT) USE OF INHALED STERO 03/16/2020 ERIN SANTIAGO MD Ot Z79. 84 SINGING TELEGRAM PERFORMER (CURRENT) USE OF ORAL HYPOGLYC 03/16/2020 ERIN SANTIAGO MD Ot Z79.899 OTHER SINGING TELEGRAM PERFORMER (CURRENT) DRUG THERAPY 03/16/2020 ERIN SANTIAGO MD Ot Z80. 9 FAMILY HISTORY OF MALIGNANT NEOPLASM, UN 03/16/2020 ERIN SANTIAGO MD Ot Z87.891 PERSONAL HISTORY OF NICOTINE DEPENDENCE 03/16/2020 ERIN SANTIAGO MD Ot Z90.710 ACQUIRED ABSENCE OF BOTH CERVIX AND UTER 03/21/2020 ERIN SANTIAGO MD Ot E11. 9 TYPE 2 DIABETES MELLITUS WITHOUT COMPLIC 03/21/2020 ERIN SANTIAGO MD Ot E66. 9 OBESITY, UNSPECIFIED 03/21/2020 ERIN SANTIAGO MD Ot E78. 2 MIXED HYPERLIPIDEMIA 03/21/2020 ERIN SANTIAGO MD Ot G47. 33 OBSTRUCTIVE SLEEP APNEA (ADULT) (PEDIATR 03/21/2020 ERIN SANTIAGO MD Ot I11. 0 HYPERTENSIVE HEART DISEASE WITH HEART FA 03/21/2020 ERIN SANTIAGO MD Ot I25. 10 ATHSCL HEART DISEASE OF [place] CORONARY 03/21/2020 ERIN SANTIAGO MD Ot I48. 91 UNSPECIFIED ATRIAL FIBRILLATION 03/21/2020 ERIN SANTIAGO MD Ot I50. 9 HEART FAILURE, UNSPECIFIED 03/21/2020 ERIN SANTIAGO MD Ot J18. 9 PNEUMONIA, UNSPECIFIED ORGANISM 03/21/2020 ERIN SANTIAGO MD Ot J44. 9 CHRONIC OBSTRUCTIVE PULMONARY DISEASE, U 03/21/2020 ERIN SANTIAGO MD Ot R94. 39 ABNORMAL RESULT OF OTHER CARDIOVASCULAR 03/21/2020 ERIN SANTIAGO MD, Ot Z68. 31 BODY MASS INDEX (BMI) 31.0-31.9, ADULT 03/21/2020 ERIN SANTIAGO MD, Ot Z79. 51 MCC (CURRENT) USE OF INHALED STERO 03/21/2020 ERIN SANTIAGO MD, Ot Z79. 84 MCC (CURRENT) USE OF ORAL HYPOGLYC 03/21/2020 ERIN SANTIAGO MD, Ot Z79.899 OTHER MCC (CURRENT) DRUG THERAPY 03/21/2020 ERIN SANTIAGO MD, Ot Z80. 9 FAMILY HISTORY OF MALIGNANT NEOPLASM, UN 03/21/2020 ERIN SANTIAGO MD, Ot Z87.891 PERSONAL HISTORY OF NICOTINE DEPENDENCE 03/21/2020 ERIN SANTIAGO MD, Ot Z90.710 ACQUIRED ABSENCE OF BOTH CERVIX AND UTER Procedures Code Description Performed By Per formed On [id number] DI LATION OF 1 COR ART WITH 2 DRUG-ELUT, 01/02/2019 [id number] IN SERTION OF ENDOTRACHEAL AIRWAY INTO TR 01/02/2019 [id number] ME ASURE OF CARDIAC SAMPL PRESSURE, L H 01/02/2019 [id number] RE SPIRATORY VENTILATION, 24- 96 CONSECUTI 01/02/2019 [id number] RE SPIRATORY VENTILATION, GREATER THAN 96 01/02/2019 [id number] FL UOROSCOPY OF MULT COR ART USING L OSM 01/02/2019 [id number] FL UOROSCOPY OF LEFT HEART USING LOW [...] stain - 01/02/19 11:20 Sputum Gram stain 01-03-19 06. NRG Bacterial sputum culture - 01/02/19 11:2 [...] blood by coagulation as say 3.7 0.8-1.4 Automated blood complete blood count (he mogram) panel - 03/16/20 07:15 Blood leukocytes automated count (number/volume) 10.2 10*3/uL 4.3-11.0 Blood erythrocytes automated count (number/volume) 4.43 10*6/uL 4.35-5.85 Venous blood hemoglobin measurement (mass/volume) 12.5 g/dL 11.5-16.0 Blood hematocrit (volume fraction) 39 % 35-52 Automated erythrocyte mean corpuscular volume 89 [ foz_us] 80-99 Automated erythrocyte mean corpuscular h emoglobin (mass per erythrocyte) 28 pg 25-34 Automated erythrocyte mean corpuscular h emoglobin concentration measurement (mass/volume) 32 g/dL 32-36 Automated erythrocyte distribution width ratio 14. 9 % 10.0- 14.5 Automated blood platelet count (count/volume) 269 10*3/uL 130-400 Automated blood platelet mean volume measurement 10.4 [foz_us] 7.4-10.4 Comprehensive metabolic panel - 03/16/20 07:15 Serum or plasma sodium measurement (moles/volume) 138 mmol/L 135-145 Serum or plasma potassium measurement (moles/volume) 3.5 mmol/L 3.6-5.0 Serum or plasma chloride measurement (moles/volume) 101 mmol/L 98-107 Carbon dioxide 26 mmol/L 21-32 Serum or plasma anion gap determination (moles/volume) 11 mmol/L 5-14 Serum or plasma urea nitrogen measurement (mass/volume ) 13 mg/dL 7-18 Serum or plasma creatinine measurement (mass/volume) 1.19 mg/dL 0.60-1.30 Serum or plasma urea nitrogen/creatinine mass ratio 11 NRG Serum or plasma creatinine measurement w ith calculation of estimated glomerular filtration rate 45 NRG Serum or plasma glucose measurement (mass/volume) 175 mg/dL 70-105 Serum or plasma calcium measurement (mass/volume) 9.6 mg/dL 8.5-10.1 Serum or plasma total bilirubin measurement (mass/volu me) 0.9 mg/dL 0.1-1.0 Serum or plasma alkaline phosphatase lakisha surement (enzymatic activity/volume) 110 U/L 40-136 Serum or plasma aspartate aminotransfera se measurement (enzymatic activity/volume) 16 U/L 5-34 Serum or plasma alanine aminotransferase measurement (enzymatic activity/volume) 13 U/L 0-55 Serum or plasma protein measurement (mass/volume) 7.7 g/dL 6.4-8.2 Serum or plasma albumin measurement (mass/volume) 4.5 g/dL 3.2-4.5 CALCIUM CORRECTED 9.2 mg/dL 8.5-10.1 Lipid 1996 panel - 03/16/20 07:15 Serum or plasma triglyceride measurement (mass/volume) 244 mg/dL <150 Serum or plasma cholesterol measurement (mass/volume) 150 mg/dL < 200 Serum or plasma cholesterol in HDL measurement (mass/v olume) 37 mg/dL 40-60 Cholesterol in LDL [mass/volume] in serum or plasma by direct assay 84 mg/dL 1-129 Serum or plasma cholesterol in VLDL measurement (mass/ volume) 49 mg/dL 5-40 PT panel in platelet poor plasma by coag ulation assay - 03/16/20 07:15 Prothrombin time (PT) in platelet poor plasma by coagu lation assay 13.7 s 12.2-14.7 INR in platelet poor plasma or blood by coagulation as say 1.0 0.8-1.4 Activated partial thromboplastin time (a PTT) in platelet poor plasma bycoagulation assay - 03/16/20 07:15 Activated partial thromboplastin time (a PTT) in platelet poor plasma bycoagulation assay 43 s 24-35 Methicillin resistant Staphylococcus aur eus (MRSA) screening culture - 03/16/20 07:15 Methicillin resistant Staphylococcus aureus (MRSA) scr eening culture NEG NRG Cholesterol in LDL [mass/volume] in seru m or plasma by direct assay - 03/16/20 07:15 Cholesterol in LDL [mass/volume] in serum or plasma by direct assay 84 % 0-129 Encounters ACCT No. Visit Date/Time Discharge Status Pt. Type Provider Facility Loc./Unit Complaint [id number] 03/16/2020 06:53:00 14:00:00 DIS Outpatient ERIN SANTIAGO MD [facility] CATH ABN STRESS [id number] 03/09/2020 08:17:00 23:59:59 CLS Outpatient ERIN SANTIAGO MD [facility] CARD DIABETES,HYPERSOMNIA,HYPERLIPIDEMIA,JAC [id number] 03/08/2020 11:45:00 23:59:59 CLS Outpatient ERIN SANTIAGO MD [facility] CARD DIABETES,HYPERSOMNIA,HYPERLIPIDEMIA,JAC [id number] 03/08/2020 11:38:00 23:59:59 CLS Outpatient MATTHEW JOE APRN [facility] RAD LUNG SCREENING [id number] 07/02/2019 14:25:00 00:01:00 DIS Outpatient ERIN SANTIAGO MD [facility] LAB FS I48.0 Z51.81 [id number] 08/25/2019 08:41:00 10:15:00 DIS Emergency YASMIN WHITE DO [facility] ER FS FALL; LEWIS SHOULDER INJ [id number] 06/30/2019 13:26:00 23:59:59 CLS Outpatient MARYSOL ROWE MD [facility] LAB FS R30.0 [id number] 06/15/2019 08:59:00 23:59:59 CLS Outpatient COLTON TELLO, AMINAH Greene [facility] LAB FS I48.0 [id number] 06/11/2019 14:34:00 15:20:00 DIS Inpatient ERIN SANTIAGO MD [facility] CSD AFIB [id number] 05/02/2019 15:02:00 18:13:00 DIS Emergency ASHELY TELLO, JOSE Nicholson [facility] ER FS SOB [id number] 03/19/2019 10:53:00 13:40:00 DIS Inpatient YOGESH STALLWORTH DO, [facility] 4TH COPD EXACERBATION CHF EXACERBATION [id number] 03/19/2019 12:47:00 23:59:59 CLS Preadmit MATTHEW JOE APRN [facility] RAD HX OF NICOTINE DEP [id number] 02/24/2019 09:28:00 23:59:59 CLS Outpatient MATTHEW JOE APRN [facility] RAD DYSPNEA [id number] 02/13/2019 10:06:00 23:59:59 CLS Outpatient MIKHAIL SOUSA MD [facility] RT CORONARY ARTERY DISEAS E INVOLVING [place] CORONARY [id number] 02/12/2019 11:44:00 23:59:59 CLS Preadmit MATTHEW JOE APRN [facility] SLEEP SLEEP DISORDER [id number] 01/22/2019 11:59:00 11:40:00 DIS Inpatient YOGESH STALLWORTH DO, [facility] ICU NSTEMI PNEUMONIA [id number] 01/12/2019 10:50:00 10:35:00 DIS Inpatient DALJIT STALLWORTH DOI [facility] IRF MYOPATHY [id number] 01/01/2019 18:35:00 10:50:00 DIS Inpatient ANDREA WHITING MD [facility] 4TH CHEST PAIN [id number] 03/30/2020 08:53:[address] Emergency SEAN PRADO DO [facility] ER FS SOB
[2020-03-30] MEDS ORDERED: FUROSEMIDE 40 MG/4 ML INJ (LASIX) IVP ONE ×2 (09:30→10:30)
[2020-03-30 09:41] LABS: BASOPHILS % (AUTO) 1 % (0-10); EOSINOPHILS # (AUTO) 0.3 10^3/uL (0.0-0.3); EOSINOPHILS % (AUTO) 4 % (0-10); HEMATOCRIT 36 % (35-52); HEMOGLOBIN 11.2 G/DL (11.5-16.0); LYMPHOCYTES # (AUTO) 2.2 X 10^3 (1.0-4.0); LYMPHOCYTES % (AUTO) 23 % (12-44); MEAN CORPUSCULAR HEMOGLOBIN 28 PG (25-34); MEAN CORPUSCULAR HGB CONC 31 G/DL (32-36); MEAN CORPUSCULAR VOLUME 90 FL (80-99); MEAN PLATELET VOLUME 10.2 FL (7.4-10.4); MONOCYTES # (AUTO) 0.8 X 10^3 (0.0-1.0); MONOCYTES % (AUTO) 8 % (0-12); NEUTROPHILS % (AUTO) 64 % (42-75); PLATELET COUNT 244 10^3/uL (130-400); RED CELL DISTRIBUTION WIDTH 14.6 % (10.0-14.5); WHITE BLOOD COUNT 9.5 10^3/uL (4.3-11.0)
[2020-03-30 09:42] LABS: BASOPHILS # (AUTO) 0.1 10^3/uL (0.0-0.1)
--- NOTE | 2020-03-30 09:45 | NUR ---
Pt up to BSC to void: 400 ml
--- NOTE | 2020-03-30 09:47 | NUR ---
Nurse assisted with a PCXR 1 view thru the glass window of room.
--- NOTE | 2020-03-30 09:50 | ED General ---
General Chief Complaint: Respiratory Problems Stated Complaint: SOB History of Present Illness Date Seen by Provider: Mar 30, 2020 Time Seen by Provider: 09:47 Initial Comments Patient presenting to emergency department for evaluation of worsening shortness of breath over the last 2 weeks. She says that it has progressively worsened and not became worse all of a sudden. She has had pressure on her chest this entire time as well. It appears she had a heart catheterization with Dr. Em on Y the and she has multiple areas of stenoses but none of them amenable to stenting. She is early had triple bypass in April 2019. Dr. Em recommended medical management. Patient says that she has gained approximately 10 pounds in the past 10 days and she has doubled her Lasix from 20 mg to 40 mg over the past several days. Patient had a echocardiogram done several days after her stress test and appears that she had an ejection fraction of 30-35%. She appears dyspneic and she says that she is dyspneic at rest as well as exertion. She is nontoxic with nausea and saturation in the mid to upper 90s. Her blood pressure is elevated but her heart rate is in the 90s range. Allergies and Home Medications Allergies Coded Allergies: No Known Drug Allergies (Unverified , 01/01/19) Home Medications Albuterol Sulfate 18 Gm Hfa.aer.ad, 2 PUFF INH Q4H PRN for SHORTNESS OF BREATH, (Reported) Amlodipine Besylate 5 Mg Tablet, 5 MG PO DAILY, (Reported) Atorvastatin Calcium 80 Mg Tablet, 80 MG PO HS, (Reported) Buspirone HCl 7.5 Mg Tablet, 7.5 MG PO BID, (Reported) Cholecalciferol (Vitamin D3) 1,000 Unit Capsule, 1,000 UNIT PO DAILY, (Reported) Citalopram Hydrobromide 40 Mg Tablet, 40 MG PO DAILY, (Reported) Fluticasone/Salmeterol 1 Each Blst.w.dev, 1 PUFF IH BID, (Reported) Furosemide 20 Mg Tablet, 20 MG PO DAILY, (Reported) Krill/Om-3/Dha/Epa/Phospho/Ast 1 Each Capsule, 1,000 MG PO DAILY, (Reported) Liraglutide 0.6 Mg/0.1 Ml Pen.injctr, 1.2 MG SQ BID, (Reported) Loratadine 10 Mg Tablet, 10 MG PO DAILY, (Reported) Metformin HCl 500 Mg Tablet, 1,000 MG PO BID TAKES 2 (500MG) TABLETS Prescribed by: ERIN EM on 03/16/20 0941 Montelukast Sodium 10 Mg Tablet, 10 MG PO HS, (Reported) Multivitamin 1 Each Tablet, 1 TAB PO DAILY, (Reported) Nitroglycerin 0.4 Mg Tab.subl, 0.4 MG SL UD PRN for CHEST PAIN, (Reported) Pantoprazole Sodium 40 Mg Tablet.dr, 40 MG PO DAILY, (Reported) Potassium Chloride 10 Meq Tablet.er, 10 MEQ PO DAILY, (Reported) Rivaroxaban 20 Mg Tablet, 20 MG PO HS, (Reported) Tramadol HCl 50 Mg Tablet, 50-100 MG PO Q6H PRN for PAIN-MODERATE, (Reported) Vit A/Vit C/Vit E/Zinc/Copper 1 Each Tablet, 1 TAB PO DAILY, (Reported) Vitamin C/Biotin 1 Each Tab.chew, 1 TAB.CHEW PO DAILY, (Reported) Patient Home Medication List Home Medication List Reviewed: Yes Review of Systems Review of Systems Constitutional: no symptoms reported EENTM: no symptoms reported Respiratory: dyspnea on exertion, short of breath Cardiovascular: chest pain Gastrointestinal: no symptoms reported Genitourinary: no symptoms reported Musculoskeletal: no symptoms reported Skin: no symptoms reported Psychiatric/Neurological: No Symptoms Reported All Other Systems Reviewed Negative Unless Noted: Yes Past Wudvfsk-Epctot-Xwwgwi Hx Patient Social History Type Used: Cigarettes Former Smoker, Quit: January 01, 2019 2nd Hand Smoke Exposure: No Recent Foreign Travel: No Contact w/Someone Who Travel: No Recent Hopitalizations: Yes (VIA [employer] 01/17/19) Immunizations Up To Date Tetanus Booster (TDap): Unknown PED Vaccines UTD: Yes Date of Pneumonia Vaccine: Jun 11, 2017 Date of Influenza Vaccine: Jun 08, 2019 Seasonal Allergies Seasonal Allergies: No Past Medical History Surgeries: Yes (Coronary stenting x 2 12/2018; 3 vessel bypass with valve r epair) CABG, Section, Coronary Stent, Hysterectomy Respiratory: Yes (Initiation home CPAP 03/18/19, Tobaccoism Hx) Sleep Apnea, COPD Currently Using CPAP: No Currently Using BIPAP: No Cardiac: Yes (CHF) Coronary Artery Disease, Heart Attack, Hypertension Neurological: Yes FIRST ASSIST History: Hysterectomy Sexually Transmitted Disease: No HIV/AIDS: No Genitourinary: No Gastrointestinal: No Musculoskeletal: No Endocrine: Yes Diabetes, Non-Insulin dep HEENT: No Cancer: Yes Melanoma Did You Recieve Any Treatments: No What Type of Treatment Did You: Surgical Intervention Psychosocial: No Integumentary: Yes (Melanoma on Right arm Removed) Blood Disorders: No Adverse Reaction/Blood Tranf: No Family Medical History Alcoholism 19 MOTHER Alzheimer's disease 19 FATHER Arthritis 19 FATHER Asthma 19 FATHER Cardiovascular disease 19 FATHER Cataracts 19 FATHER Diabetes mellitus Hypertension 19 FATHER 19 MOTHER Myocardial infarction 19 FATHER Osteoporosis 19 MOTHER Parkinson's disease 19 MOTHER Respiratory disorder 19 MOTHER No Family History of: Glaucoma Physical Exam Vital Signs Capillary Refill : Height, Weight, BMI Height: 6'0" Weight: 252lbs. 9.0oz. 114.777680hc; 31.35 BMI Method:Stated General Appearance: No Apparent Distress, WD/WN HEENT: PERRL/EOMI Neck: Supple Respiratory: Other (mild respiratory distress, few crackles at bases) Cardiovascular: Regular Rate, Rhythm Gastrointestinal: Non Tender, Soft Back: Normal Inspection Extremity: Non Tender, No Pedal Edema Neurologic/Psychiatric: Alert, Oriented x3 Skin: Warm/Dry Procedures/Interventions Date of ETT Placement: January 02, 2019 Time of ETT Placement: 1119 Progress/Results/Core Measures Suspected Sepsis SIRS Temperature: Pulse: Respiratory Rate: Laboratory Tests 03/30/20 09:30: White Blood Count 9.5 Blood Pressure / Mean: Laboratory Tests 03/30/20 09:30: Creatinine 1.05, INR Comment 1.8H, Platelet Count 244, Total Bilirubin 0.6 Results/Orders Lab Results Laboratory Tests Test 03/30/20 09:30 Range/Units White Blood Count 9.5 4.3-11.0 10^3/uL Red Blood Count 3.97 L 4.35-5.85 10^6/uL Hemoglobin 11.2 L 11.5-16.0 G/DL Hematocrit 36 35-52 % Mean Corpuscular Volume 90 80-99 FL Mean Corpuscular Hemoglobin 28 25-34 PG Mean Corpuscular Hemoglobin Concent 31 L 32-36 G/DL Red Cell Distribution Width 14.6 H 10.0-14.5 % Platelet Count 244 130-400 10^3/uL Mean Platelet Volume 10.2 7.4-10.4 FL Neutrophils (%) (Auto) 64 42-75 % Lymphocytes (%) (Auto) 23 12-44 % Monocytes (%) (Auto) 8 0-12 % Eosinophils (%) (Auto) 4 0-10 % Basophils (%) (Auto) 1 0-10 % Neutrophils # (Auto) 6.0 1.8-7.8 X 10^3 Lymphocytes # (Auto) 2.2 1.0-4.0 X 10^3 Monocytes # (Auto) 0.8 0.0-1.0 X 10^3 Eosinophils # (Auto) 0.3 0.0-0.3 10^3/uL Basophils # (Auto) 0.1 0.0-0.1 10^3/uL Prothrombin Time 20.7 H 12.2-14.7 SEC INR Comment 1.8 H 0.8-1.4 Activated Partial Thromboplast Time 53 H 24-35 SEC Sodium Level 139 135-145 MMOL/L Potassium Level 3.8 3.6-5.0 MMOL/L Chloride Level 101 98-107 MMOL/L Carbon Dioxide Level 25 21-32 MMOL/L Anion Gap 13 5-14 MMOL/L Blood Urea Nitrogen 13 7-18 MG/DL Creatinine 1.05 0.60-1.30 MG/DL Estimat Glomerular Filtration Rate 52 BUN/Creatinine Ratio 12 Glucose Level 201 H 70-105 MG/DL Calcium Level 9.2 8.5-10.1 MG/DL Corrected Calcium 8.9 8.5-10.1 MG/DL Magnesium Level 1.5 L 1.6-2.4 MG/DL Total Bilirubin 0.6 0.1-1.0 MG/DL Aspartate Amino Transf (AST/SGOT) 17 5-34 U/L Alanine Aminotransferase (ALT/SGPT) 16 0-55 U/L Alkaline Phosphatase 118 40-136 U/L Troponin I < 0.30 <0.30 NG/ML Pro-B-Type Natriuretic Peptide 2558.0 H <75.0 PG/ML Total Protein 7.1 6.4-8.2 GM/DL Albumin 4.4 3.2-4.5 GM/DL My Orders Orders - SEAN PRADO DO Chest 1 View Ap/Pa Only (03/30/20 09:25) Ekg Tracing (03/30/20 09:25) Troponin I Fs (03/30/20 09:25) Protime With Inr (03/30/20 09:25) Partial Thromboplastin Time (03/30/20 09:25) Magnesium (03/30/20 09:25) Cbc With Automated Diff (03/30/20 09:25) Comprehensive Metabolic Panel (03/30/20 09:25) Probnp Fs (03/30/20 09:25) Iv/Invasive Line Insertion .IV start (03/30/20 09:25) Furosemide Injection (Lasix Injection) (03/30/20 09:30) Nitroglycerin 0.4 Mg Btl 25's (Nitrostat (03/30/20 09:30) Magnesium 1 Gm/100 Ml Ivpb (Magnesium Olivera (03/30/20 10:30) Potassium Chloride (Tablet) (K Dur Table (03/30/20 10:30) Furosemide Injection (Lasix Injection) (03/30/20 10:30) Medications Given in ED Current Medications Medications Dose Ordered Sig/Ciara Route Start Time Stop Time Status Last Admin Dose Admin Furosemide 40 mg ONCE ONCE IVP 03/30/20 09:30 03/30/20 09:31 DC 03/30/20 09:54 40 MG Furosemide 40 mg ONCE ONCE IVP 03/30/20 10:30 03/30/20 10:31 DC 03/30/20 10:45 40 MG Magnesium Sulfate/ Dextrose 100 ml @ 100 mls/hr ONCE ONCE IV 03/30/20 10:30 03/30/20 11:29 03/30/20 10:47 100 MLS/HR Nitroglycerin 1 TAB Q 5 MIN X 3 NEEDED PRN SL 03/30/20 09:30 03/30/20 10:05 0.4 MG Potassium Chloride 20 meq ONCE ONCE PO 03/30/20 10:30 03/30/20 10:31 DC 03/30/20 10:43 20 MEQ Vital Signs/I&O Capillary Refill : Progress Note : Progress Note Patient with a 10 pound weight gain and signs of cardiomegaly and pulmonary edema on her chest x-ray. I spoke to Dr. Em and Dr. Loredo and given her weight gain with worsening heart failure the plan will be to admit her to the hospital for IV diuresis. Patient aware and agreeable with plan. Patient accepted by Dr. Villegas and transferred in stable condition. Departure Impression Primary Impression: Acute exacerbation of CHF (congestive heart failure) Qualified Codes: I50.23 - Acute on chronic systolic (congestive) heart failure Additional Impression: Hypertension Disposition: 09 ADMITTED INPATIENT Condition: Improved Transfer Transfer Reason: Exceeds level of care Transfer Facility: [facility] for [facility] Method of Transfer: EMS Departure-Patient Inst. Referrals: MARYSOL ROWE MD (PCP/Family) Primary Care Physician SEAN PRADO DO Mar 30, 2020 09:50
[2020-03-30] MEDS: NITROGLYCERIN 0.4 MG SL TABS BTL 25'S SL PRN ×2 (09:52→10:05)
[2020-03-30 09:53] LABS: INR 1.8 (0.8-1.4); PROTHROMBIN TIME PATIENT 20.7 SEC (12.2-14.7)
--- NOTE | 2020-03-30 09:59 | Diagnostic Imaging Report ---
INDICATION: Shortness of breath. Comparison with 03/16/2020. FINDINGS: Cardiomegaly with median sternotomy changes are again noted. There has been increase in the interstitial markings since previous exam. There is also a small amount of fluid within the right major fissure. No consolidated infiltrates are present. IMPRESSION: 1. Cardiomegaly with postoperative residue. 2. Development of interstitial infiltrates with small pleural effusion likely secondary to pulmonary edema. Dictated by: Dictated on workstation # [id number]
[2020-03-30 10:12] LABS: CHLORIDE 101 MMOL/L (98-107); POTASSIUM 3.8 MMOL/L (3.6-5.0); SODIUM 139 MMOL/L (135-145)
[2020-03-30 10:13] LABS: ALANINE AMINOTRANSFERASE 16 U/L (0-55); ALKALINE PHOSPHATASE 118 U/L (40-136); BILIRUBIN,TOTAL 0.6 MG/DL (0.1-1.0); BUN/CREATININE RATIO 12; CALCIUM 9.2 MG/DL (8.5-10.1); CARBON DIOXIDE 25 MMOL/L (21-32); CREATININE SERUM 1.05 MG/DL (0.60-1.30); GFR ESTIMATED 52; GLUCOSE 201 MG/DL (70-105); MAGNESIUM 1.5 MG/DL (1.6-2.4)
[2020-03-30 10:14] LABS: ALBUMIN 4.4 GM/DL (3.2-4.5); TOTAL PROTEIN 7.1 GM/DL (6.4-8.2)
[2020-03-30] MEDS ORDERED: KCL 20 MEQ TAB (K-DUR) PO ONE (10:30)
[2020-03-30] MEDS ORDERED: MAGNESIUM 1 GM/100 ML IVPB 100 ML IV ONE (10:30)
--- NOTE | 2020-03-30 10:30 | NUR ---
Pt up to BSC to void: 400 ml. Note activity tolerance is NIBP rises with activity and SaO2 varies from 97% Rm Air to 95%.
--- NOTE | 2020-03-30 10:45 | NUR ---
Pt is up to BSC: 400 ml voided
--- NOTE | 2020-03-30 11:05 | NUR ---
Report to Vi PAN.
--- NOTE | 2020-03-30 11:15 | NUR ---
Pt up to BSC to void: 350 ml
--- NOTE | 2020-03-30 11:25 | NUR ---
EMS arrived from a call and preparing for transfer, left temporarily to go to EMS barn.
--- NOTE | 2020-03-30 11:30 | NUR ---
Pt up to BSC to void: 250 ml
--- NOTE | 2020-03-30 11:45 | NUR ---
Pt up to BSC to void: 300 ml.
--- NOTE | 2020-03-30 11:47 | NUR ---
Magnesium infusion completed.
--- NOTE | 2020-03-30 11:50 | NUR ---
EMS ready to depart and patient needing to void again before arriving to truck.
--- NOTE | 2020-03-30 12:00 | NUR ---
EMS pulling out of [facility]ED with stable patient.
--- NOTE | 2020-03-30 12:44 | NUR ---
DYLANCARMEN Tyler admitted to room 510-1, with an admitting diagnosis of CHF, on 03/30/20 from [place] via cart, accompanied by ems.CARMEN RICHARDSON introduced to surroundings, call light, bed controls, phone, TV, temperature control, lights, meal times, smoking policy, visitor policy, side rail policy, bathrooms and showers. Patient Rights given to patient in the handbook. CARMEN RICHARDSON verbalizes understanding that [facility] is not responsible for the loss or damage to any personal effects or valuables that are kept in the patients posession during their hospitalization. The following Patient Care Plans were discussed with the pt: Discharge Planning. CARMEN RICHARDSON verbalizes understanding of Interdisciplinary Patient Education. Patient and/or family were informed about the Rapid Response Team and its purpose.
[2020-03-30 12:49] VITALS: BP 136/82
[2020-03-30 12:51] VITALS: BP 136/82
--- OUTSIDE RECORDS SUMMARY | 2020-03-30 13:35 | XMS REPORT | Continuity of Care Document ---
Author Organization Unknown Address Unknown Phone Unavailable Allergies Active Description Code Type Severity Reaction Onset Reported/Identified Relationship to Patient Clinical Status Yes No Known Drug Allergies [id number] Drug Allergy Unknown N/A 01/01/2019 Medications There [...] Ot A41 .9 SEPSIS, UNSPECIFIED ORGANISM 01/11/2019 NADREA WHITING MD Ot D72.829 ELEVATED WHITE BLOOD [...] DOI Ot I25.10 ATHSCL HEART DISEASE OF [place] CORONARY 01/17/2019 YOGESH STALLWORTH DO Ot I50.31 [...] Ot I25.11 0 ATHSCL HEART DISEASE OF [place] COR ART W 01/23/2019 YOGESH STALLWORTH DO Ot J44.9 CHRONIC OBSTRUCTIVE PULMONARY DISEASE, U 01/23/2019 YOGESH STALLWORTH DO Ot J98.11 ATELECTASIS 01/23/2019 YOGESH STALLWORTH DO Ot Z68.33 BODY MASS INDEX (BMI) 33.0-33.9, ADULT 01/23/2019 YOGESH STALLWORTH DO Ot Z79.84 SHELTER (CURRENT) USE OF ORAL HYPOGLYC 01/23/2019 YOGESH STALLWORTH DO Ot Z85.82 0 PERSONAL HISTORY OF MALIGNANT MELANOMA O 01/23/2019 YOGESH STALLWORTH DO Ot Z87.01 PERSONAL HISTORY OF PNEUMONIA (RECURRENT 01/23/2019 YOGESH STALLWORTH DO Ot Z87.89 1 PERSONAL HISTORY OF NICOTINE DEPENDENCE 01/23/2019 YOGESH STALLWORTH DO Ot Z95.5 PRESENCE OF CORONARY ANGIOPLASTY IMPLANT 02/17/2019 MERRY TELLO, MIKHAIL Saez Ot I25.119 ATHSCL HEART DISEASE OF [place] COR ART W 02/23/2019 MATTHEW JOE APRN Ot G47.10 HYPERSOMNIA, UNSPECIFIED 02/25/2019 MATTHEW JOE APRN Ot J18.9 PNEUMONIA, UNSPECIFIED ORGANISM 02/25/2019 MATTHEW JOE APRN Ot J30.9 ALLERGIC RHINITIS, UNSPECIFIED 02/25/2019 MATTHEW JOE APRN Ot J44.9 CHRONIC OBSTRUCTIVE PULMONARY DISEASE, U 02/25/2019 MATTHEW JOE APRN Ot J96.90 RESPIRATORY FAILURE, UNSP, UNSP W HYPOXI 03/05/2019 MERRY TELLO, MIKHAIL Saez Ot I25.119 ATHSCL HEART DISEASE OF [place] COR ART W 03/19/2019 MATTHEW JOE APRN [...] YOGESH Ot I25.10 ATHSCL HEART DISEASE OF [place] CORONARY 03/21/2019 BASIM LOWERY YOGESH Ot I25.11 0 ATHSCL HEART DISEASE OF [place] COR ART W 03/21/2019 BASIM LOWERY YOGESH [...] ADULT 03/21/2019 YOGESH STALLWORTH DO Ot Z79.02 SHELTER (CURRENT) USE OF ANTITHROMBOTI 03/21/2019 YOGESH STALLWORTH DO Ot Z79.84 SHELTER (CURRENT) USE OF ORAL HYPOGLYC 03/21/2019 YOGESH [...] Ot I25. 10 ATHSCL HEART DISEASE OF [place] CORONARY 05/02/2019 JOSE LUND MD Ot I50. 9 HEART FAILURE, UNSPECIFIED 05/02/2019 JOSE LUND MD Ot J44. 1 CHRONIC OBSTRUCTIVE PULMONARY DISEASE W 05/02/2019 JOSE LUND MD Ot R06. 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 84 BURNISHING MACHINE OPERATOR (CURRENT) USE OF ORAL HYPOGLYC 05/02/2019 JOSE [...] Ot I25. 10 ATHSCL HEART DISEASE OF [place] CORONARY 06/13/2019 ERIN SANTIAGO MD Ot I25. [...] Ot I25. 10 ATHSCL HEART DISEASE OF [place] CORONARY 06/14/2019 ERIN SANTIAGO MD Ot I25. [...] Ot I25. 10 ATHSCL HEART DISEASE OF [place] CORONARY 06/14/2019 ERIN SANTIAGO MD Ot I25. 2 OLD MYOCARDIAL INFARCTION 06/14/2019 ERIN SANTIAGO MD Ot I34. 0 NONRHEUMATIC MITRAL (VALVE) INSUFFICIENC 06/14/2019 ERIN SANTIAGO MD Ot I48. 0 PAROXYSMAL ATRIAL FIBRILLATION 06/14/2019 ERIN SANTIAGO MD, Ot J30. 2 OTHER SEASONAL ALLERGIC RHINITIS 06/14/2019 ERNI SANTIAGO MD Ot J44. 9 CHRONIC OBSTRUCTIVE PULMONARY DISEASE, U 06/14/2019 ERIN SANTIAGO MD Ot Z68. 35 BODY MASS INDEX (BMI) 35.0-35.9, ADULT 06/14/2019 ERIN SANTIAGO MD Ot Z79. 4 BURNISHING MACHINE OPERATOR (CURRENT) USE OF INSULIN 06/14/2019 ERIN SANTIAGO [...] Ot I25. 10 ATHSCL HEART DISEASE OF [place] CORONARY 06/18/2019 ERIN SANTIAGO MD Ot I25. [...] 06/18/2019 ERIN SANTIAGO MD Ot Z79. 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 10 ATHSCL HEART DISEASE OF [place] CORONARY 06/18/2019 ERIN SANTIAGO MD Ot I25. [...] MASS INDEX (BMI) 35.0-35.9, ADULT 06/18/2019 ERIN SANTAIGO MD Ot Z79. 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 10 ATHSCL HEART DISEASE OF [place] CORONARY 06/18/2019 ERIN SANTIAGO MD Ot I25. [...] 06/18/2019 ERIN SANTIAGO MD Ot Z79. 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 09 OTHER OBESITY DUE TO EXCESS CALORIES 06/18/2019 ERIN SANTIAGO MD Ot E78. 5 HYPERLIPIDEMIA, UNSPECIFIED 06/18/2019 ERIN SANTIAGO MD Ot G47. 30 SLEEP APNEA, UNSPECIFIED 06/18/2019 ERIN SANTIAGO MD Ot I10 ESSENTIAL (PRIMARY) HYPERTENSION 06/18/2019 ERIN SANTIAGO MD Ot I25. 10 ATHSCL HEART DISEASE OF [place] CORONARY 06/18/2019 ERIN SANTIAGO MD Ot I25. [...] 06/18/2019 ERIN SANTIAGO MD Ot Z79. 4 SHELTER (CURRENT) USE OF INSULIN 06/18/2019 ERIN SANTIAGO [...] FOR THERAPEUTIC DRUG LEVEL MON 07/22/2019 SOLEDAD ETLLO, MARYSOL Greene Ot R30.0 DYSURIA 08/25/2019 YASMIN WHITE DO Ot E11. 9 TYPE 2 DIABETES MELLITUS WITHOUT COMPLIC 08/25/2019 YASMIN WHITE DO Ot I11. 0 HYPERTENSIVE HEART DISEASE WITH HEART FA 08/25/2019 YASMIN WHITE DO Ot I25. 10 ATHSCL HEART DISEASE OF [place] CORONARY 08/25/2019 YASMIN WHITE DO Ot I25. [...] 08/25/2019 YASMIN WHITE DO Ot Z79. 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 4 BURNISHING MACHINE OPERATOR (CURRENT) USE OF INSULIN 08/25/2019 YASMIN WHITE DO Ot Z79. 51 SHELTER (CURRENT) USE OF INHALED STERO 08/25/2019 YASMIN WHITE DO Ot Z79. 82 SHELTER (CURRENT) USE OF ASPIRIN 08/25/2019 YAMSIN WHITE DO Ot Z82. 49 FAMILY HX [...] Ot I25. 10 ATHSCL HEART DISEASE OF [place] CORONARY 08/28/2019 YASMIN WHITE DO Ot I25. [...] 08/28/2019 YASMIN WHITE DO Ot Z79. 01 SHELTER (CURRENT) USE OF ANTICOAGULANT 08/28/2019 YASMIN WHITE DO Ot Z79. 4 SHELTER (CURRENT) USE OF INSULIN 08/28/2019 YASMIN WHITE DO Ot Z79. 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 01 BURNISHING MACHINE OPERATOR (CURRENT) USE OF ANTICOAGULANT 09/15/2019 ERIN SANTIAGO MD Ot I48. 0 PAROXYSMAL ATRIAL FIBRILLATION 09/15/2019 ERIN SANTIAGO MD Ot Z51. 81 ENCOUNTER FOR THERAPEUTIC DRUG LEVEL MON 09/15/2019 ERIN SANTIAGO MD Ot Z79. 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 0 PAROXYSMAL ATRIAL FIBRILLATION 09/20/2019 ERIN SANTIAGO MD Ot Z51. 81 ENCOUNTER FOR THERAPEUTIC DRUG LEVEL MON 09/20/2019 ERIN SANTIAGO MD Ot Z79. 01 SHELTER (CURRENT) USE OF ANTICOAGULANT 02/25/2020 MATTHEW JOE APRN Ot Z87.891 PERSONAL HISTORY OF NICOTINE DEPENDENCE 02/28/2020 MATTHEW JOE APRN Ot Z87.891 PERSONAL HISTORY OF NICOTINE DEPENDENCE 02/29/2020 MATTHEW JOE APRN Ot Z87.891 PERSONAL HISTORY OF NICOTINE DEPENDENCE 03/10/2020 MATTHEW JOE APRN Ot I25.10 ATHSCL HEART DISEASE OF [place] CORONARY 03/10/2020 MATTHEW JOE APRN Ot I51.7 CARDIOMEGALY 03/10/2020 MATTHEW JOE APRN Ot J43.9 EMPHYSEMA, UNSPECIFIED 03/10/2020 MATTHEW JOE APRN Ot M47.814 SPONDYLOSIS W/O MYELOPATHY OR RADICULOPA 03/10/2020 MATTHEW JOE APRN Ot Z12.2 ENCNTR SCREEN FOR MALIGNANT NEOPLASM OF 03/10/2020 MATTHEW JOE MANAGER ELECTRICAL Ot Z87.891 PERSONAL HISTORY OF NICOTINE DEPENDENCE [...] Ot I25. 10 ATHSCL HEART DISEASE OF [place] CORONARY 03/16/2020 ERIN SANTIAGO MD Ot I48. [...] 03/16/2020 ERIN SANTIAGO MD Ot Z79. 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 84 BURNISHING MACHINE OPERATOR (CURRENT) USE OF ORAL HYPOGLYC 03/16/2020 ERIN SANTIAGO MD Ot Z79.899 OTHER BURNISHING MACHINE OPERATOR (CURRENT) DRUG THERAPY 03/16/2020 ERIN SANTIAGO MD [...] Ot I25. 10 ATHSCL HEART DISEASE OF [place] CORONARY 03/21/2020 ERIN SANTIAGO MD Ot I48. [...] 03/21/2020 ERIN SANTIAGO MD, Ot Z79. 51 SHELTER (CURRENT) USE OF INHALED STERO 03/21/2020 ERIN SANTIAGO MD, Ot Z79. 84 SHELTER (CURRENT) USE OF ORAL HYPOGLYC 03/21/2020 ERIN SANTIAGO MD, Ot Z79.899 OTHER SHELTER (CURRENT) DRUG THERAPY 03/21/2020 ERIN SANTIAGO MD, Ot Z80. 9 FAMILY HISTORY OF MALIGNANT NEOPLASM, UN 03/21/2020 ERIN SANTIAGO MD, Ot Z87.891 PERSONAL HISTORY OF NICOTINE DEPENDENCE 03/21/2020 ERIN SANTIAGO MD, Ot Z90.710 ACQUIRED ABSENCE OF BOTH CERVIX AND UTER Procedures Code Description Performed By [place] formed On [id number] DI LATION OF 1 COR ART WITH 2 DRUG-ELUT, 01/02/2019 [id number] IN SERTION OF ENDOTRACHEAL AIRWAY INTO TR 01/02/2019 [id number] ME ASURE OF CARDIAC SAMPL PRESSURE, L H 01/02/2019 [id number] RE SPIRATORY VENTILATION, 24- 96 CONSECUTI 01/02/2019 [id number] RE SPIRATORY VENTILATION, GREATER THAN 96 01/02/2019 [id number] FL UOROSCOPY OF MULT COR ART USING L OSM 01/02/2019 [id number] FL UOROSCOPY OF LEFT HEART USING LOW [...] Status Pt. Type Provider Facility Loc./Unit Complaint [id number] 03/16/2020 06:53:00 14:00:00 DIS Outpatient ERIN SANTIAGO MD [facility] CATH ABN STRESS [id number] 03/09/2020 08:17:00 23:59:59 CLS Outpatient ERIN SANTIAGO MD [facility] CARD DIABETES,HYPERSOMNIA,HYPERLIPIDEMIA,JAC [id number] 03/08/2020 11:45:00 23:59:59 CLS Outpatient ERIN SANTIAGO MD [facility] CARD DIABETES,HYPERSOMNIA,HYPERLIPIDEMIA,JAC [id number] 03/08/2020 11:38:00 23:59:59 CLS Outpatient MATTHEW JOE APRN [facility] RAD LUNG SCREENING [id number] 07/02/2019 14:25:00 00:01:00 DIS Outpatient ERIN SANTIAGO MD [facility] LAB FS I48.0 Z51.81 [id number] 08/25/2019 08:41:00 10:15:00 DIS Emergency YASMIN WHITE DO [facility] ER FS FALL; LEWIS SHOULDER INJ [id number] 06/30/2019 13:26:00 23:59:59 CLS Outpatient MARYSOL ROWE MD [facility] LAB FS R30.0 [id number] 06/15/2019 08:59:00 23:59:59 CLS Outpatient COLTON TELLO, AMINAH Greene [facility] LAB FS I48.0 [id number] 06/11/2019 14:34:00 15:20:00 DIS Inpatient ERIN SANTIAGO MD [facility] CSD AFIB [id number] 05/02/2019 15:02:00 18:13:00 DIS Emergency ASHELY TELLO, JOSE Nicholson [facility] ER FS SOB [id number] 03/19/2019 10:53:00 13:40:00 DIS Inpatient YOGESH STALLWORTH DO, [facility] 4TH COPD EXACERBATION CHF EXACERBATION [id number] 03/19/2019 12:47:00 23:59:59 CLS Preadmit MATTHEW JOE APRN [facility] RAD HX OF NICOTINE DEP [id number] 02/24/2019 09:28:00 23:59:59 CLS Outpatient MATTHEW JOE APRN [facility] RAD DYSPNEA [id number] 02/13/2019 10:06:00 23:59:59 CLS Outpatient MIKHAIL SOUSA MD [facility] RT CORONARY ARTERY DISEAS E INVOLVING [place] CORONARY [id number] 02/12/2019 11:44:00 23:59:59 CLS Preadmit MATTHEW JOE APRN [facility] SLEEP SLEEP DISORDER [id number] 01/22/2019 11:59:00 11:40:00 DIS Inpatient YOGESH STALLWORTH DO, [facility] ICU NSTEMI PNEUMONIA [id number] 01/12/2019 10:50:00 10:35:00 DIS Inpatient DALJIT STALLWORTH DOI [facility] IRF MYOPATHY [id number] 01/01/2019 18:35:00 10:50:00 DIS Inpatient ANDREA WHITING MD [facility] 4TH CHEST PAIN [id number] 03/30/2020 12:41:[address] Inpatient COLTON TELLO, AMINAH Greene [facility] CSD CHF EXACERBATION
--- NOTE | 2020-03-30 14:41 | Consultation-Cardiology ---
HPI-Cardiology Cardiology Consultation: Date of Consultation 03/30/20 Time Seen by a Provider: 14:50 Date of Admission 03-30-2020 Attending Physician Suzanne Fine MD Admitting Physician Kade Hagen MD Consulting Physician Sarah Villegas MD [facility] Hand: Dr. Em HPI: Chief Complaint: CHF Ms. Richardson is a 65 yr old female admitted to [facility] from [facility] ED with c/o increasing SOB and abd distension over the course of the last 2-3 weeks. 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 She reports she has continued to have chest heaviness and progressive SOB. She reports a weight gain of approx 15 lbs over the last week. She reports orthopnea. She denies any palpitations, syncope or near syncope. No c/o LE swelling. She reports she was doubling up her Lasix at home with very little relief of her symptoms. No c/o n/v/d. No c/o fever or chills. Review of Systems-Cardiology Review of Systems Constitutional: No chills, No fever, No malaise; weight gain Eyes: No vision change Ears/Nose/Throat: No epistaxis, No recent hearing loss Respiratory: As described under HPI Cardiovascular: As described under HPI Gastrointestinal: No constipation, No diarrhea, No vomiting Genitourinary: No dysuria, No hematuria Musculoskeletal: no symptoms reported Skin: No rash on exposed areas, No ulcerations on exposed areas Psychiatric/Neurological: No anxiety, No depression, No seizure, No focal weakn ess, No syncope Hematologic: No bleeding abnormalities All Other Systems Reviewed Negative Unless Noted: Yes IUH-Yazxiy-Qciyiu Hx Patient Social History Type Used: Cigarettes 2nd Hand Smoke Exposure: No Recent Foreign Travel: No Immunizations Up To Date Tetanus Booster (TDap): Unknown Date of Pneumonia Vaccine: Jun 11, 2017 Date of Influenza Vaccine: Jun 08, 2019 Past Medical History PMH As described under Assessment. Family Medical History Family Medical History: She reports her father had CAD and HTN. Her mother had HTN. Family History: 19 FATHER Alzheimer's disease Arthritis Asthma Cardiovascular disease Cataracts Hypertension Myocardial infarction 19 MOTHER Alcoholism Hypertension Osteoporosis Parkinson's disease Respiratory disorder Relation not specified for: Diabetes mellitus Allergies and Home Medications Allergies Coded Allergies: No Known Drug Allergies (Unverified , 01/01/19) Home Medications Albuterol Sulfate 18 Gm Hfa.aer.ad, 2 PUFF INH Q4H PRN for SHORTNESS OF BREATH, (Reported) Amlodipine Besylate 5 Mg Tablet, 5 MG PO DAILY, (Reported) Atorvastatin Calcium 80 Mg Tablet, 80 MG PO HS, (Reported) Buspirone HCl 7.5 Mg Tablet, 7.5 MG PO BID, (Reported) Cholecalciferol (Vitamin D3) 1,000 Unit Capsule, 1,000 UNIT PO DAILY, (Reported) Citalopram Hydrobromide 40 Mg Tablet, 40 MG PO DAILY, (Reported) Fluticasone/Salmeterol 1 Each Blst.w.dev, 1 PUFF IH BID, (Reported) Furosemide 20 Mg Tablet, 20 MG PO DAILY, (Reported) Krill/Om-3/Dha/Epa/Phospho/Ast 1 Each Capsule, 1,000 MG PO DAILY, (Reported) Liraglutide 0.6 Mg/0.1 Ml Pen.injctr, 1.2 MG SQ BID, (Reported) Loratadine 10 Mg Tablet, 10 MG PO DAILY, (Reported) Metformin HCl 500 Mg Tablet, 1,000 MG PO BID TAKES 2 (500MG) TABLETS Prescribed by: ERIN EM on 03/16/20 0941 Montelukast Sodium 10 Mg Tablet, 10 MG PO HS, (Reported) Multivitamin 1 Each Tablet, 1 TAB PO DAILY, (Reported) Nitroglycerin 0.4 Mg Tab.subl, 0.4 MG SL UD PRN for CHEST PAIN, (Reported) Pantoprazole Sodium 40 Mg Tablet.dr, 40 MG PO DAILY, (Reported) Potassium Chloride 10 Meq Tablet.er, 10 MEQ PO DAILY, (Reported) Rivaroxaban 20 Mg Tablet, 20 MG PO HS, (Reported) Tramadol HCl 50 Mg Tablet, 50-100 MG PO Q6H PRN for PAIN-MODERATE, (Reported) Vit A/Vit C/Vit E/Zinc/Copper 1 Each Tablet, 1 TAB PO DAILY, (Reported) Vitamin C/Biotin 1 Each Tab.chew, 1 TAB.CHEW PO DAILY, (Reported) Physical Exam-Cardiology Physical Exam Vital Signs/I&O 03/30/20 03/30/20 03/31/20 03/31/20 20:00 21:00 00:00 00:00 Temp 37.0 Pulse 78 Resp 16 B/P (MAP) 109/73 (85) Pulse Ox 97 98 98 98 O2 Delivery Room Air Room Air Room Air Room Air 03/31/20 03/31/20 03/31/20 01:00 04:00 04:00 Temp 36.9 Pulse 80 75 Resp 18 B/P (MAP) 105/55 (72) Pulse Ox 96 96 O2 Delivery Room Air Room Air 03/31/20 00:00 Intake Total 600 ml Output Total 4100 ml Balance -3500 ml Capillary Refill : Constitutional: AAO x 3, well-developed, well-nourished HEENT: PERRL, hearing is well preserved, oral hygience is good Neck: No carotid bruit; carotid pulses are 2 + bilaterally Respiratory: No accessory muscle use, No respiratory distress; chest expansion is symmetric, chest is bilaterally symmetric, other (good air entry with prolonged expiratory phase) Cardiovascular: regular rate-rhythm; No JVD; systolic murmur Gastrointestinal: No tender; soft, round, distended, audible bowel sounds Extremities: no lower extremity edema bilateral Neurologic/Psychiatric: grossly intact (moves all extremities) Skin: No rash on exposed areas, No ulcerations on exposed areas Data Review Labs Laboratory Tests 03/30/20 09:30: White Blood Count 9.5, Red Blood Count 3.97L, Hemoglobin 11.2L, Hematocrit 36, Mean Corpuscular Volume 90, Mean Corpuscular Hemoglobin 28, Mean Corpuscular Hemoglobin Concent 31L, Red Cell Distribution Width 14.6H, Platelet Count 244, Mean Platelet Volume 10.2, Neutrophils (%) (Auto) 64, Lymphocytes (%) (Auto) 23, Monocytes (%) (Auto) 8, Eosinophils (%) (Auto) 4, Basophils (%) (Auto) 1, Neutrophils # (Auto) 6.0, Lymphocytes # (Auto) 2.2, Monocytes # (Auto) 0.8, Eosinophils # (Auto) 0.3, Basophils # (Auto) 0.1, Prothrombin Time 20.7H, INR Comment 1.8H, Activated Partial Thromboplast Time 53H, Sodium Level 139, Potassium Level 3.8, Chloride Level 101, Carbon Dioxide Level 25, Anion Gap 13, Blood Urea Nitrogen 13, Creatinine 1.05, Estimat Glomerular Filtration Rate 52, BUN/Creatinine Ratio 12, Glucose Level 201H, Calcium Level 9.2, Corrected Calcium 8.9, Magnesium Level 1.5L, Total Bilirubin 0.6, Aspartate Amino Transf (AST/SGOT) 17, Alanine Aminotransferase (ALT/SGPT) 16, Alkaline Phosphatase 118, Troponin I < 0.30, Pro-B-Type Natriuretic Peptide 2558.0H, Total Protein 7.1, Albumin 4.4 03/30/20 13:13: Troponin I < 0.028 03/31/20 03:46: White Blood Count 11.0, Red Blood Count 4.03L, Hemoglobin 11.3L, Hematocrit 36, Mean Corpuscular Volume 90, Mean Corpuscular Hemoglobin 28, Mean Corpuscular Hemoglobin Concent 31L, Red Cell Distribution Width 14.7H, Platelet Count 277, Mean Platelet Volume 10.2, Sodium Level 138, Potassium Level 3.9, Chloride Level 99, Carbon Dioxide Level 28, Anion Gap 11, Blood Urea Nitrogen 17, Creatinine 1.40H, Estimat Glomerular Filtration Rate 38, BUN/Creatinine Ratio 12, Glucose Level 158H, Calcium Level 9.1, Magnesium Level 1.5L Radiology NAME: CARMEN RICHARDSON [facility] REC#: [id number] PT STATUS: REG ER : 1955 PHYSICIAN: SEAN PRADO DO ADMIT DATE: 03/30/20/ER FS Signed Date of Exam:03/30/20 CHEST 1 VIEW AP/PA ONLY INDICATION: Shortness of breath. Comparison with 03/16/2020. FINDINGS: Cardiomegaly with median sternotomy changes are again noted. There has been increase in the interstitial markings since previous exam. There is also a small amount of fluid within the right major fissure. No consolidated infiltrates are present. IMPRESSION: 1. Cardiomegaly with postoperative residue. 2. Development of interstitial infiltrates with small pleural effusion likely secondary to pulmonary edema. Dictated by: Dictated on workstation # [id number] Dict: 03/30/2055 Trans: 03/30/20 1129 [facility] [id number] Interpreted by: OXANA TURNER MD Electronically signed by: OXANA TURNER MD 03/30/20 1129 A/P-Cardiology Assessment/Admission Diagnosis Acute on chronic systolic CHF Echocardiogram of March 08, [address] Em showed LVEF 30-35%. Severe diffuse hypokinesis. LA mild to mod dilated. Mod calcified mitral valve annulus with mod regurg. Mod TR. PASP 35-40mmHg Abnormal stress test on 03/09/[address] Em revealing baseline LBBB with severe hypertension persisting throughout test. Patchy uptake with decreased uptake involving the whole inferior wall and inferolateral wall and anterolateral wall with mild reversibility. Prominent left ventricle with diffuse left ventricular hypokinesia, more pronounced at the inferior wall, EF 32%. SSS 7, SDS 5, TID 1.03. Subsequent cardiac cath on March 16, [address] Em: the proper circumflex artery that is not bypassed has severe long segment stenosis, the artery is a very small artery and not amendable to intervention. Severe mid LAD stenosis corrected with the BRENNER to LAD that is providing excellent flow distally. Patent stent (placed December 2018) in the first obtuse marginal/ ramus intermedius with patent vein graft to OM with excellent flow distally. Severe stenosis in the mid right coronary artery with patent vein graft to the distal right coronary artery. Patient had mitral valve ring, the valve is functioning normally. Prominent left ventricle with diffuse left ventricular hypokinesia, estimated ejection fraction 40-45 % elevated left ventricular end-diastolic pressure H/O CABG [address] Bailey on May 22, 2019 using BRENNER to LAD, vein graft to the obtuse marginal branch and vein graft to the distal right coronary artery. Mitral valve repair on May 22, [address] Bailey using number 27 Medtronic flexible annuloplasty ring and Laure anterior leaflet suture H/O severe mitral regurgitation status post mitral valve repair with a ring and a clip done in April 2019 Sinus node dysfunction, sinus bradycardia alternating with paroxysmal atrial fibrillation, intolerant to beta blockers secondary to severe bradycardia Postoperative atrial fibrillation, treated with amiodarone, currently off antiarrhythmic medication. Maintained on Xarelto 20 milligrams daily Hypertension Hyperlipidemia Diabetes mellitus 2 Tobaccoism, she has stopped smoking in December 2018. Sleep apnea - CPAP tx COPD Discussion and Recomendations Acute on chronic systolic CHF - treat with diuretics Replace electrolytes as indicated ICM for which we advise HODAN (-) We advise stopping Norvasc to allow BP room for HODAN and carvedilol We advise continuation of OAC d/t known h/o PAF Further recs will be based on her hospital course We would like to thank medical services for this consult Clinical Quality Measures DVT/VTE Risk/Contraindication: Risk Factor Score Per Nursin RFS Level Per Nursing on Admit: 3=High MINOR OLIVARES Mar 30, 2020 14:41
[2020-03-30] MEDS ORDERED: ANTACID SUSP 30 ML UDC (MYLANTA) PO PRN (15:15)
[2020-03-30] MEDS ORDERED: ONDANSETRON 4 MG (ZOFRAN) ORAL DISSOLVE TAB PO PRN (15:15)
[2020-03-30] MEDS ORDERED: diphenhydrAMINE 25 MG TAB (BENADRYL) PO PRN (15:15)
[2020-03-30] MEDS ORDERED: ONDANSETRON 4 MG/2 ML (SDV) Z0FRAN IV PRN (15:15)
[2020-03-30] MEDS ORDERED: polyethylene glycoL POWDER 17 GM (MIRALAX) PACK PO PRN (15:15)
[2020-03-30] MEDS ORDERED: BISACODYL 10 MG SUPP (DULCOLAX) PR PRN (15:15)
[2020-03-30] MEDS ORDERED: MELATONIN 3 MG TABLET PO PRN (15:15)
[2020-03-30] MEDS ORDERED: ACETAMINOPHEN 325 MG TABLET PO PRN (15:15)
--- NOTE | 2020-03-30 15:49 | Physical Therapy Evaluation ---
PT Evaluation-General Medical Diagnosis Admission Date Mar 30, 2020 at 12:41 Medical Diagnosis: CHF Onset Date: Mar 30, 2020 Therapy Diagnosis Therapy Diagnosis: weakness Height/Weight Height (Feet): 6 Height (Inches): 0 Weight (Pounds): 252 Weight (Ounces): 9.0 Precautions Precautions/Isolations: Standard Precautions Weight Bear Status Right Lower Extremity: Right Weight Bearing/Tolerated Left Lower Extremity: Left Weight Bearing/Tolerated Referral Physician: Rody Reason for Referral: Evaluation/Treatment Medical History Pertinent Medical History: COPD, DM, HTN, Smoking Additional Medical History Hx of FL with heart cath 1.5 years ago Current History Admitted with SOB and abd distention. Reviewed History: Yes Social History Home: Single Level Current Living Status: Spouse Entry Into Home: Stairs With Railing Prior Prior Level of Function SCALE: Activities may be completed with or without assistive devices. 7-Asfhnbbeqt-idatqhc completes the activity by him/herself with no assistance from a helper. 5-Set-up or Clean-up Assistance-helper sets up or cleans up; patient completes activity. [place] assists only prior to or following the activity. 4-Supervision or Touching Assistance-helper provides verbal cues and/or touching/steadying and/or contact guard assistance as patient completes activity. Assistance may be provided throughout the activity or intermittently. 3-Partial/Moderate Assistance-helper does LESS THAN HALF the effort. [place] lifts, holds or supports trunk or limbs, but provides less than half the effort. 2-Substantial/Maximal Assistance-helper does MORE THAN HALF the effort. [place] lifts or holds trunk or limbs and provides more than half the effort. 5-Oylvliafh-yimten does ALL the effort. Patient does none of the effort to complete the activity. Or, the assistance of 2 or more helpers is required for the patient to complete the activity. If activity was not attempted, code reason: 7-Patient Refused. 9-Not Applicable-not attempted and the patient did not perform the activity before the current illness, exacerbation or injury. 10-Not Attempted due to Environmental Limitations-(lack of equipment, weather restraints, etc.). 88-Not Attempted due to Medical Conditions or Safety Concerns. Pt indep at PLOF; community ambulator. PT Evaluation-Current Subjective Reports she has been up in her room without assist. Expresses no PT needs. Agrees to PT eval to assess. Objective Patient Orientation: Person, Place, Time, Situation ROM/Strength ROM Lower Extremities WNL Strength Lower Extremities WNL Integumentary/Posture Integumentary intact Bowel Incontinence: No Bladder Incontinence: No Posture normal and symmetrical Neuromuscular (Tone, Coordination, Reflexes) intact Sensory Vision: Functional Hearing: Functional Transfers Pt is indep with all bed mobility and transfers. No difficulty noted or safety concerns Gait Gait Assistive Device: None Comments/Gait Description Pt ambulated in room and 250 ft in jorgensen without AD at an indep level. normal bjorn and pace with no safety concerns. Slight SOA noted but pt able to continue walking. Balance Sitting Static: Normal Sitting Dynamic: Normal Standing Static: Normal Standing Dynamic: Normal Assessment/Needs Pt is indep with all mobility with no noted safety concerns. Advised pt and nurse that she appears to be safe to be up ad venu in room. Rehab Potential: Good PT Plan Treatment/Plan Treatment Plan: Discontinue PT Treatment Duration: Mar 30, 2020 Frequency: Safety Risks/Education Patient Education: Safety Issues Teaching Recipient: Patient Teaching Methods: Discussion Response to Teaching: Return Demonstration Discharge Recommendations Plan DC, no skilled therapy needs at this haley.e Time/GCodes Time In: 1520 Time Out: 1535 Total Billed Treatment Time: 15 Total Billed Treatment visit EVM 15 MARILUZ MESSER PT Mar 30, 2020 15:49
[2020-03-30 15:57] VITALS: BP 113/72
--- NOTE | 2020-03-30 15:59 | Occupational Therapy Eval ---
OT Evaluation-General/PLF Medical Diagnosis Admission Date Mar 30, 2020 at 12:41 Medical Diagnosis: CHF Onset Date: Mar 30, 2020 Therapy Diagnosis Therapy Diagnosis: weakness Height/Weight Height (Feet): 6 Height (Inches): 0 Weight (Pounds): 252 Weight (Ounces): 9.0 Precautions Precautions/Isolations: Standard Precautions Referral Physician: Rody Referral Reason: Evaluation/Treatment Medical History Pertinent Medical History: COPD, DM, HTN, Smoking Current History Pt to [facility] ED due to worsening SOB and pressure in chest Social History Home: Single Level Current Living Status: Spouse Entry Into Home: Stairs With Railing ADL-Prior Level of Function SCALE: Activities may be completed with or without assistive devices. 1-Yhntqwwpob-seupjvn completes the activity by him/herself with no assistance from a helper. 5-Set-up or Clean-up Assistance-helper sets up or cleans up; patient completes activity. [place] assists only prior to or following the activity. 4-Supervision or Touching Assistance-helper provides verbal cues and/or touching/steadying and/or contact guard assistance as patient completes activity. Assistance may be provided throughout the activity or intermittently. 3-Partial/Moderate Assistance-helper does LESS THAN HALF the effort. [place] lifts, holds or supports trunk or limbs, but provides less than half the effort. 2-Substantial/Maximal Assistance-helper does MORE THAN HALF the effort. [place] l ifts or holds trunk or limbs and provides more than half the effort. 9-Tdsclsihq-pcaxxn does ALL the effort. Patient does none of the effort to complete the activity. Or, the assistance of 2 or more helpers is required for the patient to complete the activity. If activity was not attempted, code reason: 7-Patient Refused. 9-Not Applicable-not attempted and the patient did not perform the activity before the current illness, exacerbation or injury. 10-Not Attempted due to Environmental Limitations-(lack of equipment, weather restraints, etc.). 88-Not Attempted due to Medical Conditions or Safety Concerns. ADL PLOF Comments Pt reports being able to complete all ADLs and functional mobility without AD/AE. She took rest breaks as needed due to fatigue. OT Current Status Subjective Pt seated in recliner with PT. Mental Status/Objective Patient Orientation: Person, Place, Time, Situation Current Upper Extremity ROM BUE WFL, pt reports slightly decreased ROM in bilateral shoulders secondary to prior injury. Upper Extremity Coordination intact Upper Extremity Sensation intact Upper Extremity Strength WFL ADL-Treatment Eating (QC): 6 Oral Hygiene (QC): 6 On/Off Footwear (QC): 6 Toileting Hygiene (QC): 6 Other Treatments Pt seated in recliner, agreeable to OT evaluation. Pt reports being at her PLOF and she feels like she will have no difficulty with completing ADLS upon discharging home. She lives with her who is able to assist her if needed but she is able to complete all ADLS independently with rest breaks and activity modifications as needed. Pt is independent with ambulation, with PT she ambulated 250 feet in jorgensen without AD independently. She also reports being independent with feeding, oral hygiene, and toileting. Pt able to doff/don flip flops without assistance. Pt reports having no concerns with ADLs and does not feel like she needs OT at this time. Post OT Tx, pt seated in recliner, call light in reach and all need smet. Education OT Patient Education: Modified ADL techniques, Safety issues Teaching Recipient: Patient Teaching Methods: Discussion Response to Teaching: Verbalize Understanding OT Usp Goals Commercial Service Technician Goals 1=Demonstrate adherence to instructed precautions during ADL tasks. 2=Patient will verbalize/demonstrate understanding of assistive devices/modifications for ADL. 3=Patient will improve strength/tolerance for activity to enable patient to perform ADL's. OT Education/Plan Problem List/Assessment Assessment: No Skilled OT Needs ID'd no skilled OT services indicated at this time, pt is currently at PLOF Discharge Recommendations Plan/Recommendations: Discharge/Goals Met Treatment Plan/Plan of Care Treatment,Training & Education: Yes Patient would benefit from OT for education, treatment and training to promote independence in ADL's, mobility, safety and/or upper extremity function for ADL's. Plan of Care: ADL Retraining Treatment Duration: Mar 30, 2020 Frequency: 1 time per week (eval only) Time/GCodes Start Time: 15:35 Stop Time: 15:50 Total Time Billed (hr/min): 15 Billed Treatment Time 1, EVLAZARO MERIDA OT Mar 30, 2020 15:59
[2020-03-30] MEDS: inSUlin ASPART (NovoLOG) 1 UNIT/0.01 ML (CHARGE PER UNIT) SC SCH ×2 (16:01→20:18)
[2020-03-30] MEDS: RIVAROXABAN 20 MG TABLET (XARELTO) PO SCH (16:02)
[2020-03-30] MEDS: KCL 20 MEQ TAB (K-DUR) PO SCH (16:02)
[2020-03-30] MEDS: FUROSEMIDE 40 MG/4 ML INJ (LASIX) IV SCH (16:02)
[2020-03-30] MEDS ORDERED: RIVAROXABAN 20 MG TABLET (XARELTO) PO SCH (17:00)
[2020-03-30] MEDS ORDERED: CARVEDILOL 12.5 MG (COREG) TABLET PO NR (17:00)
--- NOTE | 2020-03-30 18:20 | History & Physical-Hospitalist ---
History of Present Illness HPI/Chief Complaint Lisseth Payne is a 65 year old female with PMH HTN, T2DM, HLD, COPD, former smoker, atrial fibrillation on Xarelto, CAD s/p CABG, HFrEF, mitral valve repair, who presented with shortness of breath. She reports that it has been worsening over weeks. She reports weight gain. Her clothes have been fitting more tightly. She reports chronic orthopnea. She denies fevers and chills. She denies chest pain. She denies abdominal pain, nausea, and vomiting. She tried to increase her Lasix from 20 mg daily to 40 mg daily, but did not notice a difference in her urine output. Source: patient Exam Limitations: no limitations Date Seen 03/30/20 Time Seen by a Provider: 16:15 Attending Physician Aminah Segura MD PCP Kade Hagen MD Referring Physician Date of Admission Mar 30, 2020 at 12:41 Home Medications & Allergies Home Medications Reviewed patient Home Medication Reconciliation performed by pharmacy medication reconciliations retail merchandiser technician and/or nursing. Patients Allergies have been reviewed. Allergies Allergies Coded Allergies No Known Drug Allergies (Unverified01/01/19) Past Kzcmhse-Zygjlm-Jrkskr Hx Past Med/Social Hx: Reviewed Nursing Past Med/Soc Hx Patient Social History Alcohol Use: Denies Use Recreational Drug Use: No Former Smoker, Quit: January 01, 2019 Type Used: Cigarettes 2nd Hand Smoke Exposure: No Recent Foreign Travel: No Contact w/other who traveled: No Recent Hopitalizations: No Recent Infectious Disease Expo: No Immunizations Up To Date Tetanus Booster (TDap): Unknown Pediatric: Yes Date of Pneumonia Vaccine: Jun 11, 2017 Date of Influenza Vaccine: Jun 08, 2019 Seasonal Allergies Seasonal Allergies: No Past Medical History Surgeries: CABG, Section, Coronary Stent, Hysterectomy Respiratory: Pneumonia, Sleep Apnea Currently Using CPAP: No Currently Using BIPAP: No Cardiac: Coronary Artery Disease, Heart Attack, Hypertension Sexually Transmitted Disease: No HIV/AIDS: No Hysterectomy Endocrine: Diabetes, Non-Insulin dep Cancer: Melanoma Did You Recieve Any Treatments: No What Type of Treatment Did You: Surgical Intervention History of Blood Disorders: No Adverse Reaction to Blood Peasron: No Family History Alcoholism 19 MOTHER Alzheimer's disease 19 FATHER Arthritis 19 FATHER Asthma 19 FATHER Cardiovascular disease 19 FATHER Cataracts 19 FATHER Diabetes mellitus Hypertension 19 FATHER 19 MOTHER Myocardial infarction 19 FATHER Osteoporosis 19 MOTHER Parkinson's disease 19 MOTHER Respiratory disorder 19 MOTHER No Family History of: Glaucoma Review of Systems Constitutional: weight gain EENTM: no symptoms reported Respiratory: short of breath Cardiovascular: no symptoms reported Gastrointestinal: no symptoms reported Genitourinary: no symptoms reported Musculoskeletal: no symptoms reported Skin: no symptoms reported Psychiatric/Neurological: No Symptoms Reported Physical Exam Physical Exam Vital Signs Vital Signs - First Documented 03/30/20 09:00 Temp 37.0 Pulse 92 Resp 21 B/P (MAP) 157/90 (112) Pulse Ox 98 O2 Delivery Room Air Capillary Refill : Less Than 3 Seconds Height, Weight, BMI Height: 6'0" Weight: 252lbs. 9.0oz. 114.462727gx; 31.69 BMI Method:Stated General Appearance: No Apparent Distress, Obese HEENT: PERRL/EOMI, Pharynx Normal Neck: Normal Inspection, Supple Respiratory: Lungs Clear, Normal Breath Sounds, No Respiratory Distress Cardiovascular: Regular Rate, Rhythm, No Murmur Gastrointestinal: Normal Bowel Sounds, Non Tender, Soft Extremity: Normal Inspection, Non Tender, Pedal Edema Neurologic/Psychiatric: Alert, Oriented x3, No Motor/Sensory Deficits, 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 Skin: Normal Color, Warm/Dry Results Results/Procedures Labs Laboratory Tests 03/30/20 09:30 Patient resulted labs reviewed. Imaging: Reviewed Imaging Report Assessment/Plan Admission Diagnosis Acute on chronic heart failure with reduced ejection fraction Admission Status: Inpatient Order (span 2 midnights) Reason for Inpatient Admission: HF requiring IV diuresis Assessment and Plan Acute on chronic heart failure with reduced ejection fraction -Most recent echo 02/2020 with EF 35% -XR with interstitial infiltrates and small pleural effusion -BNP elevated -Begin IV Lasix -Monitor I/O -Daily weight -Cardiology consulted, appreciate assistance -Begin goal-directed medical therapy -Starting Entresto and Coreg -Stop amlodipine CAD Atrial fibrillation HTN -Continue home meds T2DM -Sliding scale Obesity -BMI 31, clinically significant, no acute management needs DVT Prophylaxis: already receiving therapeutic anticoagulation Diagnosis/Problems Diagnosis/Problems (1) Acute on chronic HFrEF (heart failure with reduced ejection fraction) Status: Acute Clinical Quality Measures DVT/VTE Risk/Contraindication: Risk Factor Score Per Nursin RFS Level Per Nursing on Admit: 3=High AMINAH SEGURA MD Mar 30, 2020 18:20
--- NOTE | 2020-03-30 18:41 | Consultation-Cardiology ---
HPI-Cardiology Cardiology Consultation: Date of Consultation 03/30/20 Time Seen by a Provider: 17:45 Date of Admission Attending Physician Suzanne Fine MD Admitting Physician Kade Hagen MD Consulting Physician SHYANN YOST MD, FACP, FACC HPI: Chief Complaint: CC: Shortness of breath HPI Ms. Payne is a 65 yr old female admitted to [facility] from [facility] ED with c/o increasing SOB and abd distension over the course of the last 2-3 weeks. 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 She reports she has continued to have chest heaviness and progressive SOB. She reports a weight gain of approx 15 lbs over the last week. She reports orthopnea. She denies any palpitations, syncope or near syncope. No c/o LE swelling. She reports she was doubling up her Lasix at home with very little relief of her symptoms. No c/o n/v/d. No c/o fever or chills. Review of Systems-Cardiology Review of Systems Constitutional: No chills, No fever, No malaise; weight gain Eyes: No vision change Ears/Nose/Throat: No epistaxis, No recent hearing loss Respiratory: As described under HPI Cardiovascular: As described under HPI Gastrointestinal: No constipation, No diarrhea, No vomiting Genitourinary: No dysuria, No hematuria Musculoskeletal: no symptoms reported Skin: No rash on exposed areas, No ulcerations on exposed areas Psychiatric/Neurological: No anxiety, No depression, No seizure, No focal weakness, No syncope Hematologic: No bleeding abnormalities All Other Systems Reviewed Negative Unless Noted: Yes XRT-Gxutuj-Pfgzhj Hx Patient Social History Alcohol Use: Denies Use Recreational Drug Use: No Type Used: Cigarettes 2nd Hand Smoke Exposure: No Recent Foreign Travel: No Recent Infectious Disease Expo: No Hospitalization with Isolation: Denies Immunizations Up To Date Tetanus Booster (TDap): Unknown Date of Pneumonia Vaccine: Jun 11, 2017 Date of Influenza Vaccine: Jun 08, 2019 Past Medical History PMH As described under Assessment. Family Medical History Family Medical History: She reports her father had CAD and HTN. Her mother had HTN. Family History: Alcoholism 19 MOTHER Alzheimer's disease 19 FATHER Arthritis 19 FATHER Asthma 19 FATHER Cardiovascular disease 19 FATHER Cataracts 19 FATHER Diabetes mellitus Hypertension 19 FATHER 19 MOTHER Myocardial infarction 19 FATHER Osteoporosis 19 MOTHER Parkinson's disease 19 MOTHER Respiratory disorder 19 MOTHER No Family History of: Glaucoma Allergies and Home Medications Allergies Coded Allergies: No Known Drug Allergies (Unverified , 01/01/19) Home Medications Albuterol Sulfate 18 Gm Hfa.aer.ad, 2 PUFF INH Q4H PRN for SHORTNESS OF BREATH, (Reported) Amlodipine Besylate 5 Mg Tablet, 5 MG PO DAILY, (Reported) Atorvastatin Calcium 80 Mg Tablet, 80 MG PO HS, (Reported) Buspirone HCl 7.5 Mg Tablet, 7.5 MG PO BID, (Reported) Cholecalciferol (Vitamin D3) 1,000 Unit Capsule, 1,000 UNIT PO DAILY, (Reported) Citalopram Hydrobromide 40 Mg Tablet, 40 MG PO DAILY, (Reported) Fluticasone/Salmeterol 1 Each Blst.w.dev, 1 PUFF IH BID, (Reported) Furosemide 20 Mg Tablet, 20 MG PO DAILY, (Reported) Krill/Om-3/Dha/Epa/Phospho/Ast 1 Each Capsule, 1,000 MG PO DAILY, (Reported) Liraglutide 0.6 Mg/0.1 Ml Pen.injctr, 1.2 MG SQ BID, (Reported) Loratadine 10 Mg Tablet, 10 MG PO DAILY, (Reported) Metformin HCl 500 Mg Tablet, 1,000 MG PO BID TAKES 2 (500MG) TABLETS Prescribed by: ERIN EM on 03/16/20 0941 Montelukast Sodium 10 Mg Tablet, 10 MG PO HS, (Reported) Multivitamin 1 Each Tablet, 1 TAB PO DAILY, (Reported) Nitroglycerin 0.4 Mg Tab.subl, 0.4 MG SL UD PRN for CHEST PAIN, (Reported) Pantoprazole Sodium 40 Mg Tablet.dr, 40 MG PO DAILY, (Reported) Potassium Chloride 10 Meq Tablet.er, 10 MEQ PO DAILY, (Reported) Rivaroxaban 20 Mg Tablet, 20 MG PO HS, (Reported) Tramadol HCl 50 Mg Tablet, 50-100 MG PO Q6H PRN for PAIN-MODERATE, (Reported) Vit A/Vit C/Vit E/Zinc/Copper 1 Each Tablet, 1 TAB PO DAILY, (Reported) Vitamin C/Biotin 1 Each Tab.chew, 1 TAB.CHEW PO DAILY, (Reported) Patient Home Medication List Home Medication List Reviewed: Yes Physical Exam-Cardiology Physical Exam Vital Signs/I&O 03/30/20 03/30/20 03/30/20 03/30/20 09:00 11:50 12:49 12:51 Temp 37.0 37.0 36.6 36.6 Pulse 92 99 89 89 Resp 21 22 22 22 B/P (MAP) 157/90 (112) 159/80 (112) 136/82 (100) 136/82 Pulse Ox 98 95 98 98 O2 Delivery Room Air Room Air Room Air Room Air 03/30/20 03/30/20 03/30/20 12:58 15:13 15:57 Temp 36.3 Pulse 78 Resp 18 B/P (MAP) 113/72 (86) Pulse Ox 98 98 96 O2 Delivery Room Air Room Air Room Air Capillary Refill : Less Than 3 Seconds Constitutional: AAO x 3, well-developed, well-nourished HEENT: PERRL, hearing is well preserved, oral hygience is good Neck: No carotid bruit; carotid pulses are 2 + bilaterally Respiratory: No accessory muscle use, No respiratory distress; chest expansion is symmetric, chest is bilaterally symmetric, other (good air entry with prolonged expiratory phase) Cardiovascular: regular rate-rhythm; No JVD; systolic murmur Gastrointestinal: No tender; soft, round, distended, audible bowel sounds Extremities: no lower extremity edema bilateral Neurologic/Psychiatric: grossly intact (moves all extremities) Skin: No rash on exposed areas, No ulcerations on exposed areas Data Review Labs Laboratory Tests 03/30/20 09:30: White Blood Count 9.5, Red Blood Count 3.97L, Hemoglobin 11.2L, Hematocrit 36, Mean Corpuscular Volume 90, Mean Corpuscular Hemoglobin 28, Mean Corpuscular Hemoglobin Concent 31L, Red Cell Distribution Width 14.6H, Platelet Count 244, Mean Platelet Volume 10.2, Neutrophils (%) (Auto) 64, Lymphocytes (%) (Auto) 23, Monocytes (%) (Auto) 8, Eosinophils (%) (Auto) 4, Basophils (%) (Auto) 1, Neutrophils # (Auto) 6.0, Lymphocytes # (Auto) 2.2, Monocytes # (Auto) 0.8, Eosinophils # (Auto) 0.3, Basophils # (Auto) 0.1, Prothrombin Time 20.7H, INR Comment 1.8H, Activated Partial Thromboplast Time 53H, Sodium Level 139, Potassium Level 3.8, Chloride Level 101, Carbon Dioxide Level 25, Anion Gap 13, Blood Urea Nitrogen 13, Creatinine 1.05, Estimat Glomerular Filtration Rate 52, BUN/Creatinine Ratio 12, Glucose Level 201H, Calcium Level 9.2, Corrected Calcium 8.9, Magnesium Level 1.5L, Total Bilirubin 0.6, Aspartate Amino Transf (AST/SGOT) 17, Alanine Aminotransferase (ALT/SGPT) 16, Alkaline Phosphatase 118, Troponin I < 0.30, Pro-B-Type Natriuretic Peptide 2558.0H, Total Protein 7.1, Albumin 4.4 03/30/20 13:13: Troponin I < 0.028 Laboratory Tests 03/30/20 09:30 A/P-Cardiology Assessment/Admission Diagnosis Acute on chronic systolic CHF Ischemic cardiomyopathy Echocardiogram of March 08, [address] Em showed LVEF 30-35%. Severe diffuse hypokinesis. LA mild to mod dilated. Mod calcified mitral valve annulus with mod regurg. Mod TR. PASP 35-40mmHg Abnormal stress test on 03/09/[address] Em revealing baseline LBBB with severe hypertension persisting throughout test. Patchy uptake with decreased uptake involving the whole inferior wall and inferolateral wall and anterolateral wall with mild reversibility. Prominent left ventricle with diffuse left ventricular hypokinesia, more pronounced at the inferior wall, EF 32%. SSS 7, SDS 5, TID 1.03. Subsequent cardiac cath on March 16, [address] Em: the proper circumflex artery that is not bypassed has severe long segment stenosis, the artery is a very small artery and not amendable to intervention. Severe mid LAD stenosis corrected with the BRENNER to LAD that is providing excellent flow distally. Patent stent (placed December 2018) in the first obtuse marginal/ ramus intermedius with pa tent vein graft to OM with excellent flow distally. Severe stenosis in the mid right coronary artery with patent vein graft to the distal right coronary artery. Patient had mitral valve ring, the valve is functioning normally. Prominent left ventricle with diffuse left ventricular hypokinesia, estimated ejection fraction 40-45% elevated left ventricular end-diastolic pressure H/O CABG [address] Bailey on May 22, 2019 using BRENNER to LAD, vein graft to the obtuse marginal branch and vein graft to the distal right coronary artery. Mitral valve repair on May 22, [address] Bailey using number 27 Medtronic flexible annuloplasty ring and Laure anterior leaflet suture H/O severe mitral regurgitation status post mitral valve repair with a ring and a clip done in April 2019 Sinus node dysfunction, sinus bradycardia alternating with paroxysmal atrial fibrillation, intolerant to beta blockers secondary to severe bradycardia Postoperative atrial fibrillation, treated with amiodarone, currently off antiarrhythmic medication. Maintained on Xarelto 20 milligrams daily Hypertension Hyperlipidemia Diabetes mellitus 2 Tobaccoism, she has stopped smoking in December 2018. Sleep apnea - CPAP tx COPD Discussion and Recomendations Diuretics BB Entresto OAC Monitor labs We educated her in management of heart failure Further recs will be based on her hospital course We would like to thank Medical services for this consult Clinical Quality Measures DVT/VTE Risk/Contraindication: Risk Factor Score Per Nursin RFS Level Per Nursing on Admit: 3=High SHYANN YOST MD FACP [facility] Mar 30, 2020 18:41
[2020-03-30 19:35] VITALS: BP 139/83
[2020-03-30] MEDS: SENNOSIDES 8.6 MG (SENOKOT) TAB PO SCH (20:07)
[2020-03-30] MEDS: SACUBITRIL/VALSARTAN 24/26 MG (ENTRESTO) TABLET PO SCH (20:07)
[2020-03-30] MEDS: DOCUSATE SODIUM 100 MG (COLACE) CAP PO SCH (20:07)
[2020-03-31] VITALS: BP 109/73
[2020-03-31 04:00] VITALS: BP 105/55
[2020-03-31 04:05] LABS: HEMOGLOBIN 11.3 G/DL (11.5-16.0); MEAN PLATELET VOLUME 10.2 FL (7.4-10.4); RED CELL DISTRIBUTION WIDTH 14.7 % (10.0-14.5)
[2020-03-31 04:26] LABS: CALCIUM 9.1 MG/DL (8.5-10.1); CREATININE SERUM 1.4 MG/DL (0.60-1.30); MAGNESIUM 1.5 MG/DL (1.6-2.4); POTASSIUM 3.9 MMOL/L (3.6-5.0)
[2020-03-31] MEDS: inSUlin ASPART (NovoLOG) 1 UNIT/0.01 ML (CHARGE PER UNIT) SC SCH ×4 (04:33→20:20)
[2020-03-31] MEDS: FUROSEMIDE 40 MG/4 ML INJ (LASIX) IV SCH (06:25)
[2020-03-31] MEDS: KCL 20 MEQ TAB (K-DUR) PO SCH ×2 (06:25→16:58)
[2020-03-31 07:35] VITALS: BP 106/66
[2020-03-31] MEDS: SENNOSIDES 8.6 MG (SENOKOT) TAB PO SCH ×2 (08:00→20:17)
[2020-03-31] MEDS: DOCUSATE SODIUM 100 MG (COLACE) CAP PO SCH ×2 (08:00→20:18)
[2020-03-31] MEDS: SACUBITRIL/VALSARTAN 24/26 MG (ENTRESTO) TABLET PO SCH ×2 (08:01→20:17)
[2020-03-31] MEDS: CARVEDILOL 12.5 MG (COREG) TABLET PO SCH ×2 (08:01→20:17)
--- NOTE | 2020-03-31 09:26 | Progress Note - Cardiology ---
Cardiology SOAP Progress Note Subjective: Feeling better this morning. No c/o CP. Abdominal distension improving. No c/o palpitations. Objective: I&O/Vital Signs 04/01/20 04/01/20 04/01/20 04/01/20 00:00 00:00 01:00 03:53 Temp 36.3 36.0 Pulse 68 70 71 Resp 18 18 B/P (MAP) 103/70 (81) 93/62 (72) Pulse Ox 97 98 O2 Delivery Room Air Room Air Room Air 04/01/20 04/01/20 04/01/20 04/01/20 03:54 07:00 07:36 08:00 Temp 36.2 Pulse 69 66 Resp 19 B/P (MAP) 96/63 (74) Pulse Ox 97 O2 Delivery Room Air Room Air Room Air 04/01/20 00:00 Intake Total 1490 ml Output Total 1250 ml Balance 240 ml Weight (Pounds): 252 Weight (Ounces): 9.0 Weight (Calculated Kilograms): 114.868921 Constitutional: AAO x 3, well-developed, well-nourished, other (tremor to her voice - chronic) Respiratory: No accessory muscle use, No respiratory distress; chest expansion is symmetric, chest is bilaterally symmetric, other (good air entry with prolonged expiratory phase) Cardiovascular: regular rate-rhythm; No JVD; systolic murmur Gastrointestional: No tender; soft, round, distended, audible bowel sounds Extremities: no lower extremity edema bilateral Neurologic/Psychiatric: grossly intact (moves all extremities) Skin: No rash on exposed areas, No ulcerations on exposed areas Results/Procedures: Labs Laboratory Tests 04/01/20 03:18: Sodium Level 138, Potassium Level 4.2, Chloride Level 100, Carbon Dioxide Level 26, Anion Gap 12, Blood Urea Nitrogen 29H, Creatinine 1.49H, Estimat Glomerular Filtration Rate 35, BUN/Creatinine Ratio 19, Glucose Level 166H, Calcium Level 9.0, Magnesium Level 1.7 A/P: Assessment: Acute on chronic systolic CHF - clinically improving Ischemic cardiomyopathy Echocardiogram of March 08, [address] Em showed LVEF 30-35%. Severe diffuse hypokinesis. LA mild to mod dilated. Mod calcified mitral valve annulus with mod regurg. Mod TR. PASP 35-40mmHg Abnormal stress test on 03/09/[address] Em revealing baseline LBBB with severe hypertension persisting throughout test. Patchy uptake with decreased uptake involving the whole inferior wall and inferolateral wall and anterolateral wall with mild reversibility. Prominent left ventricle with diffuse left ventricular hypokinesia, more pronounced at the inferior wall, EF 32%. SSS 7, SDS 5, TID 1.03. Subsequent cardiac cath on March 16, [address] Em: the proper circumflex artery that is not bypassed has severe long segment stenosis, the artery is a very small artery and not amendable to intervention. Severe mid LAD stenosis corrected with the BRENNER to LAD that is providing excellent flow distally. Patent stent (placed December 2018) in the first obtuse marginal/ ramus intermedius with patent vein graft to OM with excellent flow distally. Severe stenosis in the mid right coronary artery with patent vein graft to the distal right coronary artery. Patient had mitral valve ring, the valve is functioning normally. Prominent left ventricle with diffuse left ventricular hypokinesia, estimated ejection fraction 40-45% elevated left ventricular end-diastolic pressure H/O CABG [address] Bailey on May 22, 2019 using BRENNER to LAD, vein graft to the obtuse marginal branch and vein graft to the distal right coronary artery. Mitral valve repair on May 22, [address] Bailey using number 27 Medtronic flexible annuloplasty ring and Laure anterior leaflet suture H/O severe mitral regurgitation status post mitral valve repair with a ring and a clip done in April 2019 Sinus node dysfunction, sinus bradycardia alternating with paroxysmal atrial fibrillation, previous intolerant to beta blockers secondary to severe bradycardia Postoperative atrial fibrillation, treated with amiodarone, currently off antiarrhythmic medications. Maintained on Xarelto 20 milligrams daily Hypertension Hyperlipidemia Diabetes mellitus 2 Tobaccoism, she has stopped smoking in December 2018. Sleep apnea - CPAP tx COPD Plan: Change diuretics to oral Continue BB Continue Entresto Continue OAC Monitor labs We educated her in management of heart failure Replace electrolytes as indicated MINOR OLIVARES Mar 31, 2020 09:26
[2020-03-31] MEDS ORDERED: POTA10CA43 PO (10:10)
[2020-03-31] MEDS ORDERED: METF-397 PO (10:10)
[2020-03-31] MEDS ORDERED: CHOL10002 PO (10:10)
[2020-03-31] MEDS ORDERED: ROPI1TAB PO (10:10)
--- NOTE | 2020-03-31 10:19 | NUR ---
SPOKE WITH THE PT (SHE HAD A MED LIST AND I PUT A COPY IN HER CHART) WENT THRU THE EXT MED HISTORY TO COMPLETE THE MED REC PT AND I WENT OVER HER MEDS AND SHE WAS ABLE TO TELL ME HOW/WHEN SHE TAKES EACH OTC MEDS: LORATADINE EYE VITAMIN OMEGA 3 MTV VIT D
[2020-03-31 11:23] VITALS: BP 100/68
--- NOTE | 2020-03-31 12:52 | Progress Note - Hospitalist ---
Subjective HPI/CC On Admission Date Seen by Provider: Mar 31, 2020 Time Seen by Provider: 10:40 Lisseth Payne is a 65 year old female with PMH HTN, T2DM, HLD, COPD, former smoker, atrial fibrillation on Xarelto, CAD s/p CABG, HFrEF, mitral valve repair, who presented with shortness of breath. She reports that it has been worsening over weeks. She reports weight gain. Her clothes have been fitting more tightly. She reports chronic orthopnea. She denies fevers and chills. She denies chest pain. She denies abdominal pain, nausea, and vomiting. She tried to increase her Lasix from 20 mg daily to 40 mg daily, but did not notice a d ifference in her urine output. Subjective/Events-last exam she reports feeling better today. She is not having any shortness of breath. She is not having any cough. She is not having any leg swelling. She has no other complaints or concerns. Objective Exam Vital Signs Vital Signs Date Time Temp Pulse Resp B/P (MAP) Pulse Ox O2 Delivery O2 Flow Rate FiO2 03/31/20 11:54 Room Air 03/31/20 07:35 36.6 87 18 106/66 (79) 94 Capillary Refill : Less Than 3 Seconds General Appearance: No Apparent Distress, Obese Respiratory: Lungs Clear, Normal Breath Sounds, No Respiratory Distress Cardiovascular: Regular Rate, Rhythm, No Murmur Gastrointestinal: Normal Bowel Sounds, Non Tender, Soft Extremity: Normal Inspection, Non Tender, Pedal Edema Neurologic/Psychiatric: Alert, Oriented x3, No Motor/Sensory Deficits, 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 Skin: Normal Color, Warm/Dry Results/Procedures Lab Laboratory Tests 03/31/20 03:46 Patient resulted labs reviewed. Assessment/Plan Assessment and Plan Assess & Plan/Chief Complaint Acute on chronic heart failure with reduced ejection fraction -Cardiology consulted, appreciate assistance -down 4 L since admission -continue Lasix -continue Entresto and Coreg acute kidney injury -creatinine increased to 1.4 -likely due to diuresis -Continue to monitor CAD Atrial fibrillation HTN -Continue home meds T2DM -Sliding scale Obesity -Clinically significant, no acute management needs DVT Prophylaxis: already receiving therapeutic anticoagulation Diagnosis/Problems Diagnosis/Problems (1) Acute on chronic HFrEF (heart failure with reduced ejection fraction) Status: Acute Clinical Quality Measures DVT/VTE Risk/Contraindication: Risk Factor Score Per Nursin RFS Level Per Nursing on Admit: 3=High AMINAH SEGURA MD Mar 31, 2020 12:52
--- NOTE | 2020-03-31 12:53 | Progress Note - Cardiology ---
Cardiology SOAP Progress Note Subjective: Shortness of breath has improved No cp or palp or syncope No n/v/d No focal weakness Objective: I&O/Vital Signs 03/31/20 03/31/20 03/31/20 03/31/20 01:00 04:00 04:00 06:46 Temp 36.9 Pulse 80 75 71 Resp 18 B/P (MAP) 105/55 (72) Pulse Ox 96 96 O2 Delivery Room Air Room Air 03/31/20 03/31/20 03/31/20 03/31/20 07:35 07:45 08:00 11:54 Temp 36.6 Pulse 87 Resp 18 B/P (MAP) 106/66 (79) Pulse Ox 94 O2 Delivery Room Air Room Air Room Air Room Air 03/31/20 00:00 Intake Total 600 ml Output Total 4100 ml Balance -3500 ml Weight (Pounds): 252 Weight (Ounces): 9.0 Weight (Calculated Kilograms): 114.459586 Constitutional: AAO x 3, well-developed, well-nourished, other (tremor to her voice - chronic) Respiratory: No accessory muscle use, No respiratory distress; chest expansion is symmetric, chest is bilaterally symmetric, other (good air entry with prolonged expiratory phase) Cardiovascular: regular rate-rhythm; No JVD; systolic murmur Gastrointestional: No tender; soft, round, distended, audible bowel sounds Extremities: no lower extremity edema bilateral Neurologic/Psychiatric: grossly intact (moves all extremities) Skin: No rash on exposed areas, No ulcerations on exposed areas Results/Procedures: Labs Laboratory Tests 03/30/20 13:13: Troponin I < 0.028 03/31/20 03:46: White Blood Count 11.0, Red Blood Count 4.03L, Hemoglobin 11.3L, Hematocrit 36, Mean Corpuscular Volume 90, Mean Corpuscular Hemoglobin 28, Mean Corpuscular Hemoglobin Concent 31L, Red Cell Distribution Width 14.7H, Platelet Count 277, Mean Platelet Volume 10.2, Sodium Level 138, Potassium Level 3.9, Chloride Level 99, Carbon Dioxide Level 28, Anion Gap 11, Blood Urea Nitrogen 17, Creatinine 1.40H, Estimat Glomerular Filtration Rate 38, BUN/Creatinine Ratio 12, Glucose Level 158H, Calcium Level 9.1, Magnesium Level 1.5L A/P: Assessment: Acute on chronic systolic CHF - clinically improving Ischemic cardiomyopathy. Echocardiogram of March 08, [address] Em showed LVEF 30-35%. Severe diffuse hypokinesis. LA mild to mod dilated. Mod calcified mitral valve annulus with mod regurg. Mod TR. PASP 35-40mmHg Cardiac cath on March 16, [address] Em (following abnormal MPI of 03/09/20): the proper circumflex artery that is not bypassed has severe long segment stenosis, the artery is a very small artery and not amendable to intervention. Severe mid LAD stenosis corrected with the BRENNER to LAD that is providing excellent flow distally. Patent stent (placed December 2018) in the first obtuse marginal/ ramus intermedius with patent vein graft to OM with excellent flow distally. Severe stenosis in the mid right coronary artery with patent vein graft to the distal right coronary artery. Patient had mitral valve ring, the valve is functioning normally. Prominent left ventricle with diffuse left ventricular hypokinesia, estimated ejection fraction 40-45% elevated left ventricular end-diastolic pressure H/O CABG [address] Bailey on May 22, 2019: BRENNER to LAD, vein graft to the obtuse marginal branch and vein graft to the distal right coronary artery. Mitral valve repair for severe MR on May 22, [address] Bailey using number 27 Medtronic flexible annuloplasty ring and Laure anterior leaflet suture Sinus node dysfunction, sinus bradycardia alternating with paroxysmal atrial fibrillation, previously intolerant to beta-hillary, but currently tolerating it Chronic stroke prophylaxis with Xarelto 20 milligrams daily Hypertension Hyperlipidemia Diabetes mellitus 2 Tobaccoism that she quit in December 2018. Sleep apnea - CPAP tx COPD H/o chronic, mild dysarthria Plan: Change diuretics to oral Continue BB Continue Entresto Continue OAC Monitor labs We educated her in management of heart failure Replace electrolytes as indicated SHYANN YOST MD FACP [facility]AC [facility] Mar 31, 2020 12:53
[2020-03-31 16:00] VITALS: BP 94/64
[2020-03-31] MEDS: RIVAROXABAN 20 MG TABLET (XARELTO) PO SCH (16:58)
[2020-03-31] MEDS: FUROSEMIDE 40 MG (LASIX) TAB PO SCH (16:58)
[2020-03-31 19:46] VITALS: BP 100/68
[2020-04-01] VITALS: BP 103/70
[2020-04-01 03:46] LABS: CREATININE SERUM 1.49 MG/DL (0.60-1.30); MAGNESIUM 1.7 MG/DL (1.6-2.4); POTASSIUM 4.2 MMOL/L (3.6-5.0)
[2020-04-01 03:53] VITALS: BP 93/62
[2020-04-01] MEDS: inSUlin ASPART (NovoLOG) 1 UNIT/0.01 ML (CHARGE PER UNIT) SC SCH ×2 (06:15→11:33)
[2020-04-01] MEDS: KCL 20 MEQ TAB (K-DUR) PO SCH (06:17)
[2020-04-01] MEDS: FUROSEMIDE 40 MG (LASIX) TAB PO SCH (06:17)
[2020-04-01] MEDS: CARVEDILOL 12.5 MG (COREG) TABLET PO SCH (07:32)
[2020-04-01] MEDS: SACUBITRIL/VALSARTAN 24/26 MG (ENTRESTO) TABLET PO SCH (07:32)
[2020-04-01] MEDS: SENNOSIDES 8.6 MG (SENOKOT) TAB PO SCH (07:32)
[2020-04-01] MEDS: DOCUSATE SODIUM 100 MG (COLACE) CAP PO SCH (07:32)
[2020-04-01 08:00] VITALS: BP 96/63
--- NOTE | 2020-04-01 09:21 | Progress Note - Cardiology ---
Cardiology SOAP Progress Note Subjective: Sitting up in bed. States she feels much better today, feels swelling has improved. Wants to go home today. Objective: I&O/Vital Signs Weight (Pounds): 252 Weight (Ounces): 9.0 Weight (Calculated Kilograms): 114.792910 Constitutional: AAO x 3, well-developed, well-nourished, other (tremor to her voice - chronic) Respiratory: No accessory muscle use, No respiratory distress; chest expansion is symmetric, chest is bilaterally symmetric, other (good air entry with prolonged expiratory phase) Cardiovascular: regular rate-rhythm; No JVD; systolic murmur Gastrointestional: No tender; soft, round, audible bowel sounds Extremities: no lower extremity edema bilateral Neurologic/Psychiatric: grossly intact (moves all extremities) Skin: No rash on exposed areas, No ulcerations on exposed areas Results/Procedures: Labs A/P: Assessment: Acute on chronic systolic CHF - clinically improved Ischemic cardiomyopathy. Echocardiogram of March 08, [address] Em showed LVEF 30-35%. Severe diffuse hypokinesis. LA mild to mod dilated. Mod calcified mitral valve annulus with mod regurg. Mod TR. PASP 35-40mmHg Cardiac cath on March 16, [address] Em (following abnormal MPI of 03/09/20): the proper circumflex artery that is not bypassed has severe long segment stenosis, the artery is a very small artery and not amendable to intervention. Severe mid LAD stenosis corrected with the BRENNER to LAD that is providing excellent flow distally. Patent stent (placed December 2018) in the first obtuse marginal/ ramus intermedius with patent vein graft to OM with excellent flow distally. Severe stenosis in the mid right coronary artery with patent vein graft to the distal right coronary artery. Patient had mitral valve ring, the valve is functioning normally. Prominent left ventricle with diffuse left ventricular hypokinesia, estimated ejection fraction 40-45% elevated left ventricular end-diastolic pressure H/O CABG [address] Bailey on May 22, 2019: BRENNER to LAD, vein graft to the obtuse marginal branch and vein graft to the distal right coronary artery. Mitral valve repair for severe MR on May 22, [address] Bailey using number 27 Medtronic flexible annuloplasty ring and Laure anterior leaflet suture Sinus node dysfunction, sinus bradycardia alternating with paroxysmal atrial fibrillation, previously intolerant to beta-hillary, but currently tolerating it Chronic stroke prophylaxis with Xarelto 20 milligrams daily Hypertension Hyperlipidemia Diabetes mellitus 2 Tobaccoism that she quit in December 2018. Sleep apnea - CPAP tx COPD H/o chronic, mild dysarthria Plan: Reduce Lasix to 40 BID, d/t worsening renal function Continue BB Continue Entresto Continue OAC Monitor labs We educated her in management of heart failure Replace electrolytes as indicated Repeat lab on Saturday with results to Dr. Em F/U with Dr. Em next week MINOR OLIVARES Apr 01, 2020 09:20
[2020-04-01] MEDS ORDERED: ASPI-999 PO (09:27)
[2020-04-01] MEDS ORDERED: POTA10CA43 PO (09:27)
[2020-04-01] MEDS ORDERED: SACU1TAB2 PO (09:27)
[2020-04-01] MEDS ORDERED: CARV12.53 PO (09:27)
[2020-04-01] MEDS ORDERED: FURO40TA4 PO (09:27)
[2020-04-01] MEDS ORDERED: ASPIRIN 81 MG CHEW (CHILDREN'S ASA) PO ONE (09:30)
[2020-04-01 12:00] VITALS: BP 93/65
[2020-04-01 12:25] VITALS: BP 93/65
--- NOTE | 2020-04-01 12:55 | Discharge Summary ---
Discharge Summary Hospital Course Was the Problem List Reviewed?: Yes Problems/Dx: (1) Acute on chronic HFrEF (heart failure with reduced ejection fraction) Status: Acute Hospital Course Date of Admission: Mar 30, 2020 at 12:41 Admission Diagnosis : Acute on chronic heart failure with reduced ejection fraction Family Physician/Provider: Marysol Hagen MD Date of Discharge: 04/01/20 Discharge Diagnosis: Acute on chronic heart failure with reduced ejection fraction Hospital Course: Lisseth Payne is a 65-year-old female who was admitted with acute on chronic heart failure with reduced ejection fraction. Her most recent echocardiogram showed an ejection fraction of 35 percent. Cardiology was consulted and ass isted in her care. She was diuresed with IV Lasix and responded well. She was transitioned to oral Lasix prior to discharge. She was started on Entresto for heart failure. She was also started on Coreg. Her Lasix dose was increased. She should follow-up with cardiology and get labs as scheduled. Labs and Pending Lab Test: Laboratory Tests 04/01/20 03:18: Sodium Level 138, Potassium Level 4.2, Chloride Level 100, Carbon Dioxide Level 26, Anion Gap 12, Blood Urea Nitrogen 29H, Creatinine 1.49H, Estimat Glomerular Filtration Rate 35, BUN/Creatinine Ratio 19, Glucose Level 166H, Calcium Level 9.0, Magnesium Level 1.7 04/01/20 10:40: Glucometer 304H Home Meds Active Aspirin 81 Mg Tab.chew 81 Mg PO DAILY Potassium Chloride 10 Meq Capsule.er 10 Meq PO BID Furosemide 40 Mg Tablet 40 Mg PO BID@0700,1700 Entresto 24 mg-26 mg Tablet (Sacubitril/Valsartan) 1 Each Tablet 1 Tab PO BID Carvedilol 12.5 Mg Tablet 12.5 Mg PO BID Reported Metformin HCl 500 Mg Tablet 500 Mg PO BID Ropinirole HCl 1 Mg Tablet 1 Mg PO HS PRN Vitamin D3 (Cholecalciferol (Vitamin D3)) 25 Mcg Tablet 25 Mcg PO DAILY Xarelto (Rivaroxaban) 20 Mg Tablet 20 Mg PO HS Victoza 2-Willi (Liraglutide) 0.6 Mg/0.1 Ml Pen.injctr 1.2 Mg SQ HS Tramadol HCl 50 Mg Tablet 50-100 Mg PO Q6H PRN Preservision Areds Tablet (Vit A/Vit C/Vit E/Zinc/Copper) 1 Each Tablet 1 Tab PO HS Atorvastatin Calcium 80 Mg Tablet 80 Mg PO HS Montelukast Sodium 10 Mg Tablet 10 Mg PO HS Loratadine 10 Mg Tablet 10 Mg PO DAILY Buspirone HCl 7.5 Mg Tablet 7.5 Mg PO BID Krill Oil 1,000 mg Softgel (Krill/Om-3/Dha/Epa/Phospho/Ast) 1 Each Capsule 1,000 Mg PO HS Multivitamins (Multivitamin) 1 Each Tablet 1 Tab PO DAILY Pantoprazole Sodium 40 Mg Tablet.dr 40 Mg PO DAILY Citalopram HBr (Citalopram Hydrobromide) 40 Mg Tablet 40 Mg PO DAILY Assessment/Pt Instructions Take medications as prescribed. Follow up with cardiology. Obtain labs as ordered. Discharge Planning: <30 minutes discharge planning Discharge Instructions Discharge Diet: Low Sodium Diet Activity as Tolerated: Yes Consultations Cardiology Discharge Physical Examination Vital Signs Vital Signs Date Time Temp Pulse Resp B/P (MAP) Pulse Ox O2 Delivery O2 Flow Rate FiO2 04/01/20 12:00 36.3 62 20 93/65 (74) 97 Room Air General Appearance: No Apparent Distress, Obese HEENT: PERRL/EOMI, Pharynx Normal Respiratory: Lungs Clear, Normal Breath Sounds, No Respiratory Distress Cardiovascular: Regular Rate, Rhythm, No Edema, No Murmur Gastrointestinal: Normal Bowel Sounds, Non Tender, Soft Extremity: Normal Inspection, Non Tender, No Pedal Edema Skin: Normal Color, Warm/Dry Neurologic/Psychiatric: Alert, Oriented x3, No Motor/Sensory Deficits, 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 Allergies: Coded Allergies: No Known Drug Allergies (Unverified , 01/01/19) Copy Copies To 1: MARYSOL HAGEN MD Discharge Summary Date of Admission Mar 30, 2020 at 12:41 Date of Discharge Discharge Date: Apr 01, 2020 Discharge Time: 12:53 Admission Diagnosis Acute on chronic heart failure with reduced ejection fraction Consults/Procedures Consulations Cardiology Discharge Diagnosis Acute on chronic heart failure with reduced ejection fraction (1) Acute on chronic HFrEF (heart failure with reduced ejection fraction) Status: Acute Clinical Quality Measures DVT/VTE Risk/Contraindication: Risk Factor Score Per Nursin RFS Level Per Nursing on Admit: 3=High AMINAH SEGURA MD Apr 01, 2020 12:55
[2020-04-01] MEDS ORDERED: FUROSEMIDE 40 MG (LASIX) TAB PO SCH (17:00)
== END 2020-04-01 12:25 | disposition home or self-care (01) | DRG 292 ==
LOC: EDUNIT# 08:51 → ER FS 08:53 → CSD 12:41
PROVIDERS: ADMIT Internal Medicine; ATTEND Internal Medicine
DX: I11.0 Hypertensive heart disease with heart failure (principal); N17.9 Acute kidney failure, unspecified; I50.23 Acute on chronic systolic (congestive) heart failure; I25.5 Ischemic cardiomyopathy; I08.1 Rheumatic disorders of both mitral and tricuspid valves; J44.9 Chronic obstructive pulmonary disease, unspecified; I25.10 Atherosclerotic heart disease of native coronary artery without angina pectoris; E78.5 Hyperlipidemia, unspecified; E11.9 Type 2 diabetes mellitus without complications; I48.0 Paroxysmal atrial fibrillation; I49.5 Sick sinus syndrome; G47.30 Sleep apnea, unspecified; I25.2 Old myocardial infarction; E66.9 Obesity, unspecified; Z87.891 Personal history of nicotine dependence; Z68.32 Body mass index [BMI] 32.0-32.9, adult; Z95.5 Presence of coronary angioplasty implant and graft; Z95.1 Presence of aortocoronary bypass graft; Z79.01 Long term (current) use of anticoagulants; Z95.2 Presence of prosthetic heart valve; Z79.84 Long term (current) use of oral hypoglycemic drugs; Z85.820 Personal history of malignant melanoma of skin; Z90.710 Acquired absence of both cervix and uterus
CPT/HCPCS: 36415; 71045; 80048; 80053; 82962; 83735; 83880; 84484; 85025; 85027; 85610; 85730; 93005; 96374; 96375; 96376

== ENCOUNTER → 2020-04-06 | Day surgery (SDC) | payer MEDICARE, OTHER ==
[~2020-04-06] VITALS: Ht 182 cm; Wt 109.0 kg
[~2020-04-06] MED LIST changes: +ASPI-999 PO; +CARV12.53 PO; +CHOL10002 PO; +FURO40TA4 PO; +LIDOCAINE 1% INJ 20 ML 20 ML VIAL ONE; +ROPI1TAB PO; +SACU1TAB2 PO
--- OUTSIDE RECORDS SUMMARY | 2020-04-06 09:50 | XMS REPORT | Continuity of Care Document ---
Author Organization Unknown Address Unknown Phone Unavailable Allergies Active Description Code Type Severity Reaction Onset Reported/Identified Relationship to Patient Clinical Status Yes No Known Drug Allergies [id number] Drug Allergy Unknown N/A 01/01/2019 Medications There [...] ELEVATED WHITE BLOOD CELL COUNT, UNSPECI 01/06/2019 NADREA WHITING MD Ot E11 .9 TYPE 2 [...] MD Ot I95 .9 HYPOTENSION, UNSPECIFIED 01/06/2019 ANDERA WHITING MD Ot J44 .1 CHRONIC OBSTRUCTIVE [...] OBSTRUCTIVE SLEEP APNEA (ADULT) (PEDIATR 01/07/2019 ANDREA HWITING MD Ot I10 ESSENTIAL (PRIMARY) HYPERTENSION 01/07/2019 [...] WHITING MD Ot E87 .5 HYPERKALEMIA 01/09/2019 ANRDEA WHITING MD Ot F17.210 NICOTINE DEPENDENCE, CIGARETTES, [...] 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 01/17/2019 BASIM LOWERY YOGSEH Ot G93.41 METABOLIC ENCEPHALOPATHY 01/17/2019 DALJIT STALLWORTH DOI Ot I11.0 HYPERTENSIVE HEART DISEASE WITH HEART FA 01/17/2019 DALJIT STALLWORTH DOI Ot I21.4 NON-ST ELEVATION (NSTEMI) MYOCARDIAL INF 01/17/2019 DALJIT STALLWORTH DOI Ot I25.10 ATHSCL HEART DISEASE OF [place] CORONARY 01/17/2019 YOGESH STALLWORTH DO Ot I50.31 [...] Ot I25.11 0 ATHSCL HEART DISEASE OF [place] COR ART W 01/23/2019 YOGESH STALLWORTH DO Ot J44.9 CHRONIC OBSTRUCTIVE PULMONARY DISEASE, U 01/23/2019 YOGESH STALLWORTH DO Ot J98.11 ATELECTASIS 01/23/2019 YOGESH STALLWORTH DO Ot Z68.33 BODY MASS INDEX (BMI) 33.0-33.9, ADULT 01/23/2019 YOGESH STALLWORTH DO Ot Z79.84 JAIL (CURRENT) USE OF ORAL HYPOGLYC 01/23/2019 YOGESH STALLWORTH DO Ot Z85.82 0 PERSONAL HISTORY OF MALIGNANT MELANOMA O 01/23/2019 YOGESH STALLWORTH DO Ot Z87.01 PERSONAL HISTORY OF PNEUMONIA (RECURRENT 01/23/2019 YOGESH STALLWORTH DO Ot Z87.89 1 PERSONAL HISTORY OF NICOTINE DEPENDENCE 01/23/2019 YOGESH STALLWORTH DO Ot Z95.5 PRESENCE OF CORONARY ANGIOPLASTY IMPLANT 02/17/2019 MERRY TELLO, MIKHAIL Saez Ot I25.119 ATHSCL HEART DISEASE OF [place] COR ART W 02/23/2019 MATTHEW JOE APRN Ot G47.10 HYPERSOMNIA, UNSPECIFIED 02/25/2019 MATTHEW JOE APRN Ot J18.9 PNEUMONIA, UNSPECIFIED ORGANISM 02/25/2019 MATTHEW JOE APRN Ot J30.9 ALLERGIC RHINITIS, UNSPECIFIED 02/25/2019 MATTHEW JOE APRN Ot J44.9 CHRONIC OBSTRUCTIVE PULMONARY DISEASE, U 02/25/2019 MATTHEW JOE APRN Ot J96.90 RESPIRATORY FAILURE, UNSP, UNSP W HYPOXI 03/05/2019 MERRY TELLO, MIKHAIL Saez Ot I25.119 ATHSCL HEART DISEASE OF [place] COR ART W 03/19/2019 MATTHEW JOE APRN [...] YOGESH Ot I25.10 ATHSCL HEART DISEASE OF [place] CORONARY 03/21/2019 BASIM LOWERY YOGESH Ot I25.11 0 ATHSCL HEART DISEASE OF [place] COR ART W 03/21/2019 BASIM LOWERY YOGESH [...] ADULT 03/21/2019 YOGESH STALLWORTH DO Ot Z79.02 JAIL (CURRENT) USE OF ANTITHROMBOTI 03/21/2019 YOGESH STALLWORTH DO Ot Z79.84 JAIL (CURRENT) USE OF ORAL HYPOGLYC 03/21/2019 YOGESH [...] Ot I25. 10 ATHSCL HEART DISEASE OF [place] CORONARY 05/02/2019 JOSE LUND MD Ot I50. 9 HEART FAILURE, UNSPECIFIED 05/02/2019 JOSE LUND MD Ot J44. 1 CHRONIC OBSTRUCTIVE PULMONARY DISEASE W 05/02/2019 JOSE LUND MD Ot R06. 02 SHORTNESS OF BREATH 05/02/2019 JOSE LUND MD Ot Z79. 82 NICKER AND BREAKER (CURRENT) USE OF ASPIRIN 05/02/2019 JOSE LUND MD Ot Z79. 84 NICKER AND BREAKER (CURRENT) USE OF ORAL HYPOGLYC 05/02/2019 JOSE [...] 5 PRESENCE OF CORONARY ANGIOPLASTY IMPLANT 06/13/2019 REIN SANTIAGO MD Ot E11. 9 TYPE 2 DIABETES MELLITUS WITHOUT COMPLIC 06/13/2019 ERIN SANTIAGO MD Ot E66. 09 OTHER OBESITY DUE TO EXCESS CALORIES 06/13/2019 ERIN SANTIAGO MD Ot E78. 5 HYPERLIPIDEMIA, UNSPECIFIED 06/13/2019 ERIN SANTIAGO MD Ot G47. 30 SLEEP APNEA, UNSPECIFIED 06/13/2019 ERIN SANTIAGO MD Ot I10 ESSENTIAL (PRIMARY) HYPERTENSION 06/13/2019 ERIN SANTIAGO MD Ot I25. 10 ATHSCL HEART DISEASE OF [place] CORONARY 06/13/2019 ERIN SANTIAGO MD Ot I25. 2 OLD MYOCARDIAL INFARCTION 06/13/2019 ERIN SANTIAGO MD Ot I48. 0 PAROXYSMAL ATRIAL FIBRILLATION 06/13/2019 ERIN SANTIAGO MD Ot J30. 2 OTHER SEASONAL ALLERGIC RHINITIS 06/13/2019 ERIN SANTIAGO MD Ot J44. 9 CHRONIC OBSTRUCTIVE PULMONARY DISEASE, U 06/13/2019 ERIN SANTIAGO MD Ot Z68. 35 BODY MASS INDEX (BMI) 35.0-35.9, ADULT 06/13/2019 ERNI SANTIAGO MD Ot Z85.820 PERSONAL HISTORY OF [...] Ot I25. 10 ATHSCL HEART DISEASE OF [place] CORONARY 06/14/2019 ERIN SANTIAGO MD Ot I25. [...] TYPE 2 DIABETES MELLITUS WITHOUT COMPLIC 06/14/2019 REIN SANTIAGO MD Ot E66. 09 OTHER OBESITY DUE TO EXCESS CALORIES 06/14/2019 ERIN SANTIAGO MD Ot E78. 5 HYPERLIPIDEMIA, UNSPECIFIED 06/14/2019 ERIN SANTIAGO MD Ot G47. 30 SLEEP APNEA, UNSPECIFIED 06/14/2019 ERIN SANTIAGO MD Ot I10 ESSENTIAL (PRIMARY) HYPERTENSION 06/14/2019 ERIN SANTIAGO MD Ot I25. 10 ATHSCL HEART DISEASE OF [place] CORONARY 06/14/2019 ERIN SANTIAGO MD Ot I25. [...] 06/14/2019 ERIN SANTIAGO MD Ot Z79. 4 NICKER AND BREAKER (CURRENT) USE OF INSULIN 06/14/2019 ERIN SANTIAGO [...] Ot I25. 10 ATHSCL HEART DISEASE OF [place] CORONARY 06/18/2019 ERIN SANTIAGO MD Ot I25. [...] 06/18/2019 ERIN SANTIAGO MD Ot Z79. 4 NICKER AND BREAKER (CURRENT) USE OF INSULIN 06/18/2019 ERIN SANTIAGO [...] Ot I25. 10 ATHSCL HEART DISEASE OF [place] CORONARY 06/18/2019 ERIN SANTIAGO MD Ot I25. [...] 06/18/2019 ERIN SANTIAGO MD Ot Z79. 4 NICKER AND BREAKER (CURRENT) USE OF INSULIN 06/18/2019 ERIN SANTIAGO [...] MD Ot I10 ESSENTIAL (PRIMARY) HYPERTENSION 06/18/2019 ERNI SANTIAGO MD Ot I25. 10 ATHSCL HEART DISEASE OF [place] CORONARY 06/18/2019 ERIN SANTIAGO MD Ot I25. [...] 06/18/2019 ERIN SANTIAGO MD Ot Z79. 4 NICKER AND BREAKER (CURRENT) USE OF INSULIN 06/18/2019 ERIN SANTIAGO [...] Ot I25. 10 ATHSCL HEART DISEASE OF [place] CORONARY 06/18/2019 ERIN SANTIAGO MD Ot I25. [...] 06/18/2019 ERIN SANTIAGO MD Ot Z79. 4 JAIL (CURRENT) USE OF INSULIN 06/18/2019 ERIN SANTIAGO MD Ot Z85.820 PERSONAL HISTORY OF MALIGNANT MELANOMA O 06/18/2019 ERIN SANTIAGO MD Ot Z87.891 PERSONAL HISTORY OF NICOTINE DEPENDENCE 06/18/2019 ERIN SANTIAGO MD Ot Z95. 1 PRESENCE OF AORTOCORONARY BYPASS GRAFT 06/18/2019 ERIN SANTIAGO MD Ot Z95. 5 PRESENCE OF CORONARY ANGIOPLASTY IMPLANT 06/18/2019 ERNI SANTIAGO MD Ot Z98.890 OTHER SPECIFIED POSTPROCEDURAL [...] Ot I25. 10 ATHSCL HEART DISEASE OF [place] CORONARY 08/25/2019 YASMIN WHITE DO Ot I25. [...] 08/25/2019 YASMIN WHITE DO Ot Z79. 01 NICKER AND BREAKER (CURRENT) USE OF ANTICOAGULANT 08/25/2019 YASMIN WHITE DO Ot Z79. 4 NICKER AND BREAKER (CURRENT) USE OF INSULIN 08/25/2019 YASMIN WHITE DO Ot Z79. 51 JAIL (CURRENT) USE OF INHALED STERO 08/25/2019 YASMIN WHITE DO Ot Z79. 82 JAIL (CURRENT) USE OF ASPIRIN 08/25/2019 YASMIN WHITE [...] Ot I25. 10 ATHSCL HEART DISEASE OF [place] CORONARY 08/28/2019 YASMIN WHITE DO Ot I25. 2 OLD MYOCARDIAL INFARCTION 08/28/2019 YASIMN WHITE DO Ot I50. 9 HEART FAILURE, [...] 08/28/2019 YASMIN WHITE DO Ot Z79. 01 JAIL (CURRENT) USE OF ANTICOAGULANT 08/28/2019 YASMIN WHITE DO Ot Z79. 4 JAIL (CURRENT) USE OF INSULIN 08/28/2019 YASMIN WHITE DO Ot Z79. 51 JAIL (CURRENT) USE OF INHALED STERO 08/28/2019 YASMIN WHITE DO Ot Z79. 82 NICKER AND BREAKER (CURRENT) USE OF ASPIRIN 08/28/2019 YASMIN WHITE [...] 09/14/2019 ERIN SANTIAGO MD Ot Z79. 01 NICKER AND BREAKER (CURRENT) USE OF ANTICOAGULANT 09/15/2019 ERIN SANTIAGO MD Ot I48. 0 PAROXYSMAL ATRIAL FIBRILLATION 09/15/2019 ERIN SANTIAGO MD Ot Z51. 81 ENCOUNTER FOR THERAPEUTIC DRUG LEVEL MON 09/15/2019 ERIN SANTIAGO MD Ot Z79. 01 NICKER AND BREAKER (CURRENT) USE OF ANTICOAGULANT 09/20/2019 ERIN SANTIAGO MD Ot I48. 0 PAROXYSMAL ATRIAL FIBRILLATION 09/20/2019 ERIN SANTIAGO MD Ot Z51. 81 ENCOUNTER FOR THERAPEUTIC DRUG LEVEL MON 09/20/2019 ERIN SANTIAGO MD Ot Z79. 01 JAIL (CURRENT) USE OF ANTICOAGULANT 02/25/2020 MATTHEW JOE APRN Ot Z87.891 PERSONAL HISTORY OF NICOTINE DEPENDENCE 02/28/2020 MATTHEW JOE APRN Ot Z87.891 PERSONAL HISTORY OF NICOTINE DEPENDENCE 02/29/2020 MATTHEW JOE APRN Ot Z87.891 PERSONAL HISTORY OF NICOTINE DEPENDENCE 03/10/2020 MATTHEW JOE APRN Ot I25.10 ATHSCL HEART DISEASE OF [place] CORONARY 03/10/2020 MATTHEW JOE APRN Ot I51.7 CARDIOMEGALY 03/10/2020 MATTHEW JOE APRN Ot J43.9 EMPHYSEMA, UNSPECIFIED 03/10/2020 MATTHEW JOE APRN Ot M47.814 SPONDYLOSIS W/O MYELOPATHY OR RADICULOPA 03/10/2020 MATTHEW JOE APRN Ot Z12.2 ENCNTR SCREEN FOR MALIGNANT NEOPLASM OF 03/10/2020 MATTHEW JOE LEAD GAME DESIGNER Ot Z87.891 PERSONAL HISTORY OF NICOTINE DEPENDENCE [...] Ot I25. 10 ATHSCL HEART DISEASE OF [place] CORONARY 03/16/2020 ERIN SANTIAGO MD Ot I48. [...] 03/16/2020 ERIN SANTIAGO MD Ot Z79. 51 NICKER AND BREAKER (CURRENT) USE OF INHALED STERO 03/16/2020 ERIN SANTIAGO MD Ot Z79. 84 NICKER AND BREAKER (CURRENT) USE OF ORAL HYPOGLYC 03/16/2020 ERIN SANTIAGO MD Ot Z79.899 OTHER NICKER AND BREAKER (CURRENT) DRUG THERAPY 03/16/2020 ERIN SANTIAGO MD [...] Ot I25. 10 ATHSCL HEART DISEASE OF [place] CORONARY 03/21/2020 ERIN SANTIAGO MD Ot I48. [...] 03/21/2020 ERIN SANTIAGO MD, Ot Z79. 51 JAIL (CURRENT) USE OF INHALED STERO 03/21/2020 ERIN SANTIAGO MD, Ot Z79. 84 JAIL (CURRENT) USE OF ORAL HYPOGLYC 03/21/2020 ERIN SANTIAGO MD, Ot Z79.899 OTHER JAIL (CURRENT) DRUG THERAPY 03/21/2020 ERIN SANTIAGO MD, Ot Z80. 9 FAMILY HISTORY OF MALIGNANT NEOPLASM, UN 03/21/2020 ERIN SANTIAGO MD, Ot Z87.891 PERSONAL HISTORY OF NICOTINE DEPENDENCE 03/21/2020 ERIN SANTIAGO MD, Ot Z90.710 ACQUIRED ABSENCE OF BOTH CERVIX AND UTER Procedures Code Description Performed By Per formed On [id number] DI LATION OF 1 COR ART WITH 2 DRUG-ELUT, 01/02/2019 [id number] IN SERTION OF ENDOTRACHEAL AIRWAY INTO TR 01/02/2019 [id number] ME ASURE OF CARDIAC SAMPL PRESSURE, L H 01/02/2019 [id number] RE SPIRATORY VENTILATION, 24- 96 CONSECUTI 01/02/2019 [id number] RE SPIRATORY VENTILATION, GREATER THAN 96 01/02/2019 [id number] FL UOROSCOPY OF MULT COR ART USING L OSM 01/02/2019 [id number] FL UOROSCOPY OF LEFT HEART USING LOW [...] plasma by direct assay 84 % 0-129 Complete blood count (CBC) with automate d white blood cell (WBC) differential - 03/30/20 09:30 Blood leukocytes automated count (number/volume) 9.5 10*3/uL 4.3-11.0 Blood erythrocytes automated count (number/volume) 3.97 10*6/uL 4.35-5.85 Venous blood hemoglobin measurement (mass/volume) 11.2 g/dL 11.5-16.0 Blood hematocrit (volume fraction) 36 % 35-52 Automated erythrocyte mean corpuscular volume 90 [ foz_us] 80-99 Automated erythrocyte mean corpuscular h emoglobin (mass per erythrocyte) 28 pg 25-34 Automated erythrocyte mean corpuscular h emoglobin concentration measurement (mass/volume) 31 g/dL 32-36 Automated erythrocyte distribution width ratio 14. 6 % 10.0- 14.5 Automated blood platelet count (count/volume) 244 10*3/uL 130-400 Automated blood platelet mean volume measurement 10.2 [foz_us] 7.4-10.4 Automated blood neutrophils/100 leukocytes 64 % 42-75 Automated blood lymphocytes/100 leukocytes 23 % 12-44 Blood monocytes/100 leukocytes 8 % 0-12 Automated blood eosinophils/100 leukocytes 4 % 0-10 Automated blood basophils/100 leukocytes 1 % 0-10 Blood neutrophils automated count (number/volume) 6.0 10*3 1.8-7.8 Blood lymphocytes automated count (number/volume) 2.2 10*3 1.0-4.0 Blood monocytes automated count (number/volume) 0. 8 10*3 0.0-1.0 Automated eosinophil count 0.3 10*3/uL 0 .0-0.3 Automated blood basophil count (count/volume) 0.1 10*3/uL 0.0-0.1 PT panel in platelet poor plasma by coag ulation assay - 03/30/20 09:30 Prothrombin time (PT) in platelet poor plasma by coagu lation assay 20.7 s 12.2-14.7 INR in platelet poor plasma or blood by coagulation as say 1.8 0.8-1.4 Activated partial thromboplastin time (a PTT) in platelet poor plasma bycoagulation assay - 03/30/20 09:30 Activated partial thromboplastin time (a PTT) in platelet poor plasma bycoagulation assay 53 s 24-35 Comprehensive metabolic panel - 03/30/20 09:30 Serum or plasma sodium measurement (moles/volume) 139 mmol/L 135-145 Serum or plasma potassium measurement (moles/volume) 3.8 mmol/L 3.6-5.0 Serum or plasma chloride measurement (moles/volume) 101 mmol/L 98-107 Carbon dioxide 25 mmol/L 21-32 Serum or plasma anion gap determination (moles/volume) 13 mmol/L 5-14 Serum or plasma urea nitrogen measurement (mass/volume ) 13 mg/dL 7-18 Serum or plasma creatinine measurement (mass/volume) 1.05 mg/dL 0.60-1.30 Serum or plasma urea nitrogen/creatinine mass ratio 12 NRG Serum or plasma creatinine measurement w ith calculation of estimated glomerular filtration rate 52 NRG Serum or plasma glucose measurement (mass/volume) 201 mg/dL 70-105 Serum or plasma calcium measurement (mass/volume) 9.2 mg/dL 8.5-10.1 Serum or plasma total bilirubin measurement (mass/volu me) 0.6 mg/dL 0.1-1.0 Serum or plasma alkaline phosphatase lakisha surement (enzymatic activity/volume) 118 U/L 40-136 Serum or plasma aspartate aminotransfera se measurement (enzymatic activity/volume) 17 U/L 5-34 Serum or plasma alanine aminotransferase measurement (enzymatic activity/volume) 16 U/L 0-55 Serum or plasma protein measurement (mass/volume) 7.1 g/dL 6.4-8.2 Serum or plasma albumin measurement (mass/volume) 4.4 g/dL 3.2-4.5 CALCIUM CORRECTED 8.9 mg/dL 8.5-10.1 Magnesium - 03/30/20 09:30 Magnesium 1.5 mg/dL 1.6-2.4 TROPONIN I FS - 03/30/20 09:30 TROPONIN I FS < 0.30 <0.30 PROBNP FS - 03/30/20 09:30 PROBNP FS 2558.0 pg/mL <75.0 Serum or plasma troponin i.cardiac measu rement (mass/volume) - 03/30/20 13:13 Serum or plasma troponin i.cardiac measurement (mass/v olume) < ng/mL <0.028 Automated blood complete blood count (he mogram) panel - 03/31/20 03:46 Blood leukocytes automated count (number/volume) 11.0 10*3/uL 4.3-11.0 Blood erythrocytes automated count (number/volume) 4.03 10*6/uL 4.35-5.85 Venous blood hemoglobin measurement (mass/volume) 11.3 g/dL 11.5-16.0 Blood hematocrit (volume fraction) 36 % 35-52 Automated erythrocyte mean corpuscular volume 90 [ foz_us] 80-99 Automated erythrocyte mean corpuscular h emoglobin (mass per erythrocyte) 28 pg 25-34 Automated erythrocyte mean corpuscular h emoglobin concentration measurement (mass/volume) 31 g/dL 32-36 Automated erythrocyte distribution width ratio 14. 7 % 10.0- 14.5 Automated blood platelet count (count/volume) 277 10*3/uL 130-400 Automated blood platelet mean volume measurement 10.2 [foz_us] 7.4-10.4 Whole blood basic metabolic panel - 02/12 03:46 Serum or plasma sodium measurement (moles/volume) 138 mmol/L 135-145 Serum or plasma potassium measurement (moles/volume) 3.9 mmol/L 3.6-5.0 Serum or plasma chloride measurement (moles/volume) 99 mmol/L 98-107 Carbon dioxide 28 mmol/L 21-32 Serum or plasma anion gap determination (moles/volume) 11 mmol/L 5-14 Serum or plasma urea nitrogen measurement (mass/volume ) 17 mg/dL 7-18 Serum or plasma creatinine measurement (mass/volume) 1.40 mg/dL 0.60-1.30 Serum or plasma urea nitrogen/creatinine mass ratio 12 NRG Serum or plasma creatinine measurement w ith calculation of estimated glomerular filtration rate 38 NRG Serum or plasma glucose measurement (mass/volume) 158 mg/dL 70-105 Serum or plasma calcium measurement (mass/volume) 9.1 mg/dL 8.5-10.1 Magnesium - 03/31/20 03:46 Magnesium 1.5 mg/dL 1.6-2.4 Whole blood basic metabolic panel - 03/14 03:18 Serum or plasma sodium measurement (moles/volume) 138 mmol/L 135-145 Serum or plasma potassium measurement (moles/volume) 4.2 mmol/L 3.6-5.0 Serum or plasma chloride measurement (moles/volume) 100 mmol/L 98-107 Carbon dioxide 26 mmol/L 21-32 Serum or plasma anion gap determination (moles/volume) 12 mmol/L 5-14 Serum or plasma urea nitrogen measurement (mass/volume ) 29 mg/dL 7-18 Serum or plasma creatinine measurement (mass/volume) 1.49 mg/dL 0.60-1.30 Serum or plasma urea nitrogen/creatinine mass ratio 19 NRG Serum or plasma creatinine measurement w ith calculation of estimated glomerular filtration rate 35 NRG Serum or plasma glucose measurement (mass/volume) 166 mg/dL 70-105 Serum or plasma calcium measurement (mass/volume) 9.0 mg/dL 8.5-10.1 Magnesium - 04/01/20 03:18 Magnesium 1.7 mg/dL 1.6-2.4 Capillary blood glucose measurement by g lucometer (mass/volume) - 04/01/20 10:40 Capillary blood glucose measurement by glucometer (mas s/volume) 304 mg/dL 70-110 Whole blood basic metabolic panel - 03/26 09/14 11:49 Serum or plasma sodium measurement (moles/volume) 136 mmol/L 135-145 Serum or plasma potassium measurement (moles/volume) 4.7 mmol/L 3.6-5.0 Serum or plasma chloride measurement (moles/volume) 100 mmol/L 98-107 Carbon dioxide 25 mmol/L 21-32 Serum or plasma anion gap determination (moles/volume) 11 mmol/L 5-14 Serum or plasma urea nitrogen measurement (mass/volume ) 32 mg/dL 7-18 Serum or plasma creatinine measurement (mass/volume) 1.95 mg/dL 0.60-1.30 Serum or plasma urea nitrogen/creatinine mass ratio 16 NRG Serum or plasma creatinine measurement w ith calculation of estimated glomerular filtration rate 26 NRG Serum or plasma glucose measurement (mass/volume) 150 mg/dL 70-105 Serum or plasma calcium measurement (mass/volume) 9.0 mg/dL 8.5-10.1 Magnesium - 04/05/20 11:49 Magnesium 1.8 mg/dL 1.6-2.4 Encounters ACCT No. Visit Date/Time Discharge Status Pt. Type Provider Facility Loc./Unit Complaint [id number] 03/30/2020 12:41:00 12:25:00 DIS Inpatient COLTON TELLO, AMINAH Greene [facility] CSD CHF EXACERBATION [id number] 03/16/2020 06:53:00 14:00:00 DIS Outpatient ERIN SANTIAGO MD [facility] CATH ABN STRESS [id number] 03/09/2020 08:17:00 23:59:59 CLS Outpatient ERIN SANTIAGO MD [facility] CARD DIABETES,HYPERSOMNIA,HYPERLIPIDEMIA,AJC [id number] 03/08/2020 11:45:00 23:59:59 CLS Outpatient ERIN SANTIAGO MD [facility] CARD DIABETES,HYPERSOMNIA,HYPERLIPIDEMIA,JAC [id number] 03/08/2020 11:38:00 23:59:59 CLS Outpatient MATTHEW JOE APRN [facility] RAD LUNG SCREENING [id number] 07/02/2019 14:25:00 00:01:00 DIS Outpatient ERIN SANTIAGO MD [facility] LAB FS I48.0 Z51.81 [id number] 08/25/2019 08:41:00 10:15:00 DIS Emergency YASMIN WHITE DO [facility] ER FS FALL; LEWIS SHOULDER INJ [id number] 06/30/2019 13:26:00 23:59:59 CLS Outpatient SOLEDAD TELLO, MARYSOL hathaway [facility] LAB FS R30.0 [id number] 06/15/2019 08:59:00 23:59:59 CLS Outpatient COLTON TELLO, AMINAH Greene [facility] LAB FS I48.0 [id number] 06/11/2019 14:34:00 15:20:00 DIS Inpatient JACK TELLO, ERIN Nicholson [facility] CSD AFIB [id number] 05/02/2019 15:02:00 18:13:00 DIS Emergency ASHELY TELLO, JOSE Nicholson [facility] ER FS SOB [id number] 03/19/2019 10:53:00 13:40:00 DIS Inpatient YOGESH STALLWORTH DO, [facility] 4TH COPD EXACERBATION CHF EXACERBATION [id number] 03/19/2019 12:47:00 23:59:59 CLS Preadmit MATTHEW JOE APRN [facility] RAD HX OF NICOTINE DEP [id number] 02/24/2019 09:28:00 23:59:59 CLS Outpatient MATTHEW JOE APRN [facility] RAD DYSPNEA [id number] 02/13/2019 10:06:00 23:59:59 CLS Outpatient MIKHAIL SOUSA MD [facility] RT CORONARY ARTERY DISEAS E INVOLVING [place] CORONARY [id number] 02/12/2019 11:44:00 23:59:59 CLS Preadmit MATTHEW JOE APRN [facility] SLEEP SLEEP DISORDER [id number] 01/22/2019 11:59:00 11:40:00 DIS Inpatient DALJIT STALLWORTH DOI [facility] ICU NSTEMI PNEUMONIA [id number] 01/12/2019 10:50:00 10:35:00 DIS Inpatient BASIM LOWERY YOGESH [facility] IRF MYOPATHY [id number] 01/01/2019 18:35:00 10:50:00 DIS Inpatient HENOK TELLO, ANDREA Gross [facility] 4TH CHEST PAIN [id number] 04/05/2020 12:24:00 Document Registration
[2020-04-06 10:05] VITALS: BP 139/84
--- NOTE | 2020-04-06 11:19 | Implantation of Loop Monitor ---
Implant of Loop Monitior IMPLANTATION OF LOOP MONITOR REPORT DATE OF PROCEDURE: 04/06/20 PREOP DIAGNOSIS: Paroxysmal atrial fibrillation POSTOP DIAGNOSIS: Paroxysmal atrial fibrillation PROCEDURE DETAILS: The patient is a 65 female with history of paroxysmal atrial fibrillation and sinus node dysfunction, we were planning to stop oral anticoagulation, did not have any recent episode of atrial fibrillation, I decided to proceed with Loop monitor implantation for long-term surveillance. Therefore implantable loop recorder was discussed and agreed with the patient. Informed consent was taken. All risks and complications were discussed at length. The patient was draped and prepped in the usual sterile fashion. Local anesthesia was lidocaine, which was given in the substernal area close to the 4th intercostal space. Loop monitor but chronic with serial number [id number] was implanted according to the protocol. Steri-Strips were placed at the end of the procedure. There were no complications and the patient tolerated the procedure well. The device was interrogated with a voltage of. ANESTHESIA: Local anesthesia with lidocaine. COMPLICATIONS: None CONTRAST/FLUOROSCOPY: None CONCLUSION: Successful implantation of a loop monitor with no complication FINAL DIAGNOSIS: Paroxysmal atrial fibrillation Sinus node dysfunction Coronary artery disease Hypertension ERIN SANTIAGO MD Apr 06, 2020 11:18 am
== END | disposition home or self-care (01) ==
LOC: CATH 09:05
PROVIDERS: ATTEND Internal Medicine Cardiovascular Disease
DX: I48.0 Paroxysmal atrial fibrillation (principal); I49.5 Sick sinus syndrome; I10 Essential (primary) hypertension; I25.10 Atherosclerotic heart disease of native coronary artery without angina pectoris
CPT/HCPCS: 33285; C1764

== ENCOUNTER → 2020-08-15 | Outpatient (CLI) | payer MEDICARE, OTHER ==
[~2020-08-15] MED LIST changes: +AMLO-250 PO; +AMLO-251 PO; -AMLO10TA7 PO; -AMLO5TAB9 PO; +ASPI-1238 PO; -ASPI-983 PO; -LIDOCAINE 1% INJ 20 ML 20 ML VIAL ONE; -MONT10TA26 PO; +MONT10TA97 PO; -PANT40TA3 PO; +PANT40TA52 PO
== END ==
LOC: CARD 12:00
PROVIDERS: ATTEND Physician Assistant
DX: I34.0 Nonrheumatic mitral (valve) insufficiency (principal); I50.9 Heart failure, unspecified

== ENCOUNTER → 2020-12-02 | Outpatient (CLI) | payer MEDICARE, OTHER ==
[~2020-12-02] MED LIST changes: +CHOL-34 PO; -CHOL10002 PO; -ISOS30TA3 PO; +ISOS30TA82 PO; -LISI-552 PO; +LISI20TA26 PO; +MONT10TA32 PO; -MONT10TA97 PO
== END ==
LOC: CARD 13:17
PROVIDERS: ATTEND Physician Assistant
DX: I05.2 Rheumatic mitral stenosis with insufficiency (principal); I11.9 Hypertensive heart disease without heart failure
CPT/HCPCS: 93306

== ENCOUNTER → 2021-12-01 | Outpatient (CLI) | payer MEDICARE, OTHER ==
[~2021-12-01] MED LIST changes: -CITA40TA11 PO; +CITA40TA13 PO; +MONT-40 PO; -MONT10TA32 PO
== END ==
LOC: CARD 14:30
PROVIDERS: ATTEND Internal Medicine Cardiovascular Disease
DX: I11.9 Hypertensive heart disease without heart failure (principal); I08.0 Rheumatic disorders of both mitral and aortic valves
CPT/HCPCS: 93306

== ENCOUNTER → 2021-12-27 | Outpatient (CLI) | payer MEDICARE, OTHER ==
[~2021-12-27] VITALS: Ht 182 cm; Wt 115.0 kg
[~2021-12-27] MED LIST changes: +CATHETER FLUSH 10 ML SYR IVP PRN; +REGADENOSON 0.4 MG/5 ML SYR (LEXISCAN) IV ONE
[2021-12-27 09:15] VITALS: BP 156/135
--- NOTE | 2021-12-27 13:05 | Cardiology Stress Test Report ---
Stress Test Report Date of Procedure/Referring: Date of Procedure: December 27, 2021 PCP Lb Em MD Admitting Physician Marysol Hagen MD Indications: CP Baseline Heart Rate: 53 Baseline Blood Pressure: Blood Pressure Systolic: 156 Blood Pressure Diastolic: 135 Baseline Vitals Vital Signs Date Time Temp Pulse Resp B/P (MAP) Pulse Ox O2 Delivery O2 Flow Rate FiO2 12/27/21 09:15 65 17 156/135 (142) 98 Room Air Baseline EKG: Baseline EKG: RBBB Summary After explaining the procedure to the patient, she signed a consent and then brought to the stress nuclear laboratory. Patient received 0.4 mg Lexiscan for stress test, ECG, heart rate and blood pressure were monitored continuously. Resting and stress dose of radio tracer were injected, imaging was acquired and reviewed in short axis, horizontal long axis and vertical long axis views. TID: 0.99 SSS: 16 SDS: 6 EF: 40 1. Patient tolerated Lexiscan well 2. Baseline right bundle branch block persisted during test 3. Diaphragmatic attenuation with reversible ischemia involving the whole inferior wall and inferoseptum 4. Normal left ventricular size with hypokinesia at the inferior wall, ejection fraction 40% Copy Copies To 1: MARYSOL HAGEN MD, BASHAR J MD December 27, 2021 13:05
== END ==
LOC: CARD 08:15
PROVIDERS: ATTEND Internal Medicine Cardiovascular Disease
DX: I25.10 Atherosclerotic heart disease of native coronary artery without angina pectoris (principal); I10 Essential (primary) hypertension
CPT/HCPCS: 78452; 93017; A9502

== ENCOUNTER 2022-01-03 14:00 | Day surgery (SDC) | payer MEDICARE, OTHER ==
[2022-01-03] VITALS (9 sets, daily range): BP systolic 114–157; BP diastolic 58–76
[~2022-01-03] VITALS: Ht 182.9 cm; Wt 118.3 kg
[2022-01-03 12:39] LABS: HEMATOCRIT 41 % (35-52); HEMOGLOBIN 12.9 g/dL (11.5-16.0); MEAN CORPUSCULAR HEMOGLOBIN 30 pg (25-34); MEAN CORPUSCULAR HGB CONC 32 g/dL (32-36); MEAN CORPUSCULAR VOLUME 93 fL (80-99); MEAN PLATELET VOLUME 11.5 fL (9.0-12.2); PLATELET COUNT 218 10^3/uL (130-400); WHITE BLOOD COUNT 7.5 10^3/uL (4.3-11.0)
[2022-01-03 12:42] LABS: BILIRUBIN,URINE NEGATIVE (NEGATIVE); CLARITY,URINE CLEAR; COLOR,URINE YELLOW; GLUCOSE, URINE (UA) NEGATIVE (NEGATIVE); KETONES,URINE NEGATIVE (NEGATIVE); LEUKOCYTE ESTERASE ,URINE NEGATIVE (NEGATIVE); NITRITE,URINE NEGATIVE (NEGATIVE); PROTEIN,URINE NEGATIVE (NEGATIVE)
[2022-01-03 12:52] LABS: BACTERIA,URINE NEGATIVE /HPF; WBC,URINE RARE /HPF
[2022-01-03 12:53] LABS: ALBUMIN 4.3 GM/DL (3.2-4.5); POTASSIUM 4.5 MMOL/L (3.6-5.0)
[2022-01-03 12:54] LABS: CALCIUM 9.3 MG/DL (8.5-10.1)
[2022-01-03 12:55] LABS: TOTAL PROTEIN 7.4 GM/DL (6.4-8.2)
[2022-01-03 12:56] LABS: INR 0.9 (0.8-1.4); PROTHROMBIN TIME PATIENT 12.8 SEC (12.2-14.7)
[2022-01-03 12:57] LABS: BILIRUBIN,TOTAL 0.8 MG/DL (0.1-1.0)
[2022-01-03 12:59] LABS: CREATININE SERUM 1.19 MG/DL (0.60-1.30)
--- NOTE | 2022-01-03 13:01 | Diagnostic Imaging Report ---
HISTORY: Abnormal stress test, chest pain, shortness of breath. TECHNIQUE: Frontal view of the chest. COMPARISON: 03/30/2020 FINDINGS: There is mild cardiomegaly which appears stable. No consolidation is seen. There is no pleural effusion or pneumothorax. Sternotomy wires are noted. Post-CABG changes are present. A environmental monitoring specialist device is noted. There is internal fixation of the proximal left humerus. IMPRESSION: 1. No acute pulmonary abnormality. 2. Mild cardiomegaly. Dictated by: Dictated on workstation # [id number]
--- NOTE | 2022-01-03 13:53 | Conscious Sedation/ASA ---
Conscious Sedation Pre-Proced Time 13:53 ASA Score 3 For ASA 3 and 4: Consider anesthesia and medical clearance. Also, for patients with a history of failed moderate sedation consider anesthesia. Airway Lungs Heart ASA score ASA 1: a normal healthy patient ASA 2: a patient with a mild systemic disease (mid diabetes, controlled hypertension, obesity x ASA 3: a patient with a severe systemic disease that limits activity (angina, COPD, prior Myocardial infarction) ASA 4: a patient with an incapacitating disease that is a constant threat to life (CHF, renal failure) ASA 5: a moribund patient not expected to survive 24 hrs. (ruptured aneurysm) ASA 6: a declared brain- patient whose organs are being harvested. For emergent operations, add the letter E after the classification Mallampati Classification Grade 3 Sedation Plan Analgesia, Amnesia, Plan communicated to team members, Discussed options with patient/fam, Discussed risks with patient/fam The patient is an appropriate candidate to undergo the planned procedure, sedation, and anesthesia. The patient immediately re-assessed prior to indication. ERIN SANTIAGO MD January 03, 2022 13:53
--- NOTE | 2022-01-03 13:55 | Discharge Inst-Post CATH ---
Discharge Inst-CATH/EP Problems Reviewed?: Yes Post Cardiac Cath/EP D/C Inst Follow Up/Plan Hold metformin for [address] Em's office in 2 to 4 weeks <b>CARDIAC CATH/EP PROCEDURE DISCHARGE INSTRUCTIONS</b> ACTIVITY * Go Home directly and rest. * Limit activity of the leg (or wrist if it was used) for 7 days including aerobics, swimming, jogging, bicycling, etc. * Restrict stair-climbing for 7 days if possible, if not, climb up with your non-cath leg, then bring together on the same step. * Avoid lifting, pushing, pulling or excessive movement of the affected extremity for 7 days. * Customary sexual activity may be resumed after 2 days-use caution not to use a position that strains or causes pain to the affected extremity. * No driving for 24 hours. * NO SMOKING. * Avoid straining for bowel movements for 7 days. * Gentle walking on level ground is allowed. * Returning to work will depend on the type of procedure and the results. Your doctor will discuss this with you. CALL YOUR DOCTOR FOR ANY OF THE FOLLOWING: *If bleeding from the puncture site occurs- Apply gentle pressure to site with clean cloth and call your doctor or EMS. * If a knot or lump forms under the skin, increases in size, or causes pain. * If bruising appears to be worsening or moving further down your leg instead of disappearing. * Temperature above 101 F. CARE OF YOUR GROIN INCISION; * Bruising or purple discoloration of the skin near the puncture site is common. * You may shower only, no bathtub bathing for 5 days. Be careful to avoid slipping as your leg may feel stiff. * If a closure device was used on your femoral artery, please see the attached guide regarding care of the device and your leg. * Leave dressing on FOR 24 hours. CARE OF YOUR WRIST INCISION; * Bruising or purple discoloration of the skin near the puncture site is common. * You may shower. * DO NOT submerge wrist. * Leave dressing on FOR 24 hours. ERIN EM MD January 03, 2022 13:55
[~2022-01-03 14:00] MED LIST changes: +CARV3.12 PO; -CATHETER FLUSH 10 ML SYR IVP PRN; +FLUT1BLS12 IH; +FURO-125 PO; +HEParin (CATH LAB) 2,000 ML IV ONE; +LIDOCAINE 1% INJ 20 ML VIAL ONE; +METF-399 PO; +MIDAZOLAM 2 MG/2 ML (VERSED) VIAL ONE; +MIDAZOLAM 5 MG/5 ML (VERSED) VIAL ONE; +NS IV 1000 ML 1,000 ML IV SCH; +NS IV 1000 ML 1,000 ML ONE; +PATIENT MAY USE OWN MEDS, ALL PO SCH; +POTA-160 PO; -REGADENOSON 0.4 MG/5 ML SYR (LEXISCAN) IV ONE; +SACU1TAB7 PO; +fentaNYL INJ 100 MCG/2 ML AMP ONE
--- NOTE | 2022-01-03 14:00 | Cardiac Cath Report ---
Cardiac Cath Report Physician (s)/Tie Loader (s) Physician ERIN SANTIAGO MD Pre-Procedure Diagnosis Pre-Procedure Diagnosis: coronary artery disease Post-Procedure Note Procedure Start Date: January 03, 2022 Name of Procedure: Left heart cath Vein graft angiogram BRENNER angiogram Findings/Procedure Note PROCEDURE NOTE: 66-year-old lady with history of coronary artery disease, mitral valve ring, multiple intervention in the past. Had an abnormal stress test, scheduled for cardiac catheterization possible PTCA After explaining the procedure to the patient, all pros and cons were explained, all questions were answered. The patient signed the consent and then she was placed on the cardiac catheterization laboratory. Groin was prepped SL fashion local anesthesia was used. Sheath placed in the right femoral artery. Ashish right and left catheter were used to access the coronary system.Vein Graft evaluated. BRENNER evaluated. Pigtail was used to access the left ventricular cavity. Left ventriculogram was not done, pressure was measured At the end of the procedure the sheath was removed. Closure device was deployed FINDINGS: Hemodynamics LV 139/9, end-diastolic pressure of 9 Aorta 147/63 mean of 97 ANATOMY: Left Main has moderate ostial/proximal stenosis. Left Anterior Descending has patent BRENNER to the LAD with good flow distally, moderate disease in the proximal LAD Left Circumflex is moderate in size, the obtuse marginal branch/ramus intermedius has patent stent proximally and patent vein graft to the mid with excellent flow distally. The proper circumflex artery has severe stenosis proximally, small artery less than 2 mm in diameter, did not change compared to the study of 2019. Right Coronary Artery is moderate in size, has severe stenosis at the midportion with patent vein graft to the right coronary artery BRENNER angiogram showed patent BRENNER to the LAD with excellent flow distally Vein Graft evaluation showed 2 vein graft Vein graft to the right coronary artery is patent with good flow distally, small vessel disease. Vein graft to the obtuse marginal branch/ramus intermedius branch is patent with good flow distally LV Gram was not done, pressure was measured CONCLUSION: 1. Moderate to severe ostial/proximal left main coronary artery stenosis with patent BRENNER to LAD, vein graft to the ramus intermedius and vein graft to the right coronary artery 2. Severe stenosis in the proximal circumflex artery that is very small artery less than 2 mm in diameter, did not change compared to the study of 2019 3. Normal left ventricular end-diastolic pressure DISCUSSION AND RECOMMENDATION: Continue to maximize medical therapy. No interventions is recommended Anesthesia Type: Conscious Sedation Estimated blood loss (mL): 20 ml Contrast Amount: 75 ml Total Radiation Dose: 571 mGy Post-Procedure Diagnosis Post-operative diagnosis: Chest pain Coronary artery disease Hypertension Hyperlipidemia ERIN SANTIAGO MD January 03, 2022 14:00
== END 2022-01-03 18:15 ==
LOC: CATH 14:00 → SDC 14:24 → CATH 18:15
PROVIDERS: ATTEND Internal Medicine Cardiovascular Disease
DX: I25.10 Atherosclerotic heart disease of native coronary artery without angina pectoris (principal); I10 Essential (primary) hypertension; I49.5 Sick sinus syndrome; I11.0 Hypertensive heart disease with heart failure; I45.10 Unspecified right bundle-branch block; I34.0 Nonrheumatic mitral (valve) insufficiency; I50.22 Chronic systolic (congestive) heart failure; I65.23 Occlusion and stenosis of bilateral carotid arteries; I97.89 Other postprocedural complications and disorders of the circulatory system, not elsewhere classified; E78.5 Hyperlipidemia, unspecified; N28.9 Disorder of kidney and ureter, unspecified; E11.9 Type 2 diabetes mellitus without complications; J44.9 Chronic obstructive pulmonary disease, unspecified; E78.2 Mixed hyperlipidemia; Z87.891 Personal history of nicotine dependence; Z79.899 Other long term (current) drug therapy; Z79.82 Long term (current) use of aspirin; Z79.84 Long term (current) use of oral hypoglycemic drugs
CPT/HCPCS: 71045; 80053; 81000; 85027; 85610; 85730; 87081; 93005; 93459; C1760; C1894; 36415

== ENCOUNTER 2022-10-09 11:01 | Emergency (ER) | payer MEDICARE, OTHER ==
[~2022-10-09] VITALS: Ht 182 cm; Wt 111.0 kg
[~2022-10-09 11:01] MED LIST changes: -HEParin (CATH LAB) 2,000 ML IV ONE; -LIDOCAINE 1% INJ 20 ML VIAL ONE; -MIDAZOLAM 2 MG/2 ML (VERSED) VIAL ONE; -MIDAZOLAM 5 MG/5 ML (VERSED) VIAL ONE; -NS IV 1000 ML 1,000 ML IV SCH; -NS IV 1000 ML 1,000 ML ONE; -PATIENT MAY USE OWN MEDS, ALL PO SCH; -POTA10CA43 PO; +POTA10CA44 PO; -fentaNYL INJ 100 MCG/2 ML AMP ONE
[2022-10-09] MEDS ORDERED: NS IV 1000 ML 1,000 ML IV STA (11:13)
--- NOTE | 2022-10-09 11:20 | ED Chest Pain ---
General Stated Complaint: TACHY Source: patient History of Present Illness Date Seen by Provider: Oct 09, 2022 Time Seen by Provider: 11:02 Initial Comments 67-year-old female presenting with complaints of feeling like her heart was racing. She states this has been going on for last 2 days. She feels like there is some chest tightness. She denies any actual pain. She had some nausea with vomiting last week and has had some diarrhea in the last few days. She denies having fever, chills, cough, abdominal pain, pain with urination. She does have a history of coronary artery disease with CABG in 2019 and heart cath with stenting in 2019. I reviewed Dr[address] Em's cardiology notes from her most recent heart cath in December 2021. She is very anxious and worried because of feeling like her heart was racing. 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 NTG SL PERSONALIZED LIVING MANAGER NURSE: No Associated Symptoms: No abdominal pain, No back pain, No diaphoresis, No dizziness, No edema, No fatigue, No fever/chills, No headache, No heartburn; nausea/vomiting (nausea and vomiting last week); No rash, No swelling/lump in chest, No syncope, No weakness Allergies and Home Medications Allergies Coded Allergies: No Known Drug Allergies (Unverified , 01/01/19) Patient Home Medication List Home Medication List Reviewed: Yes Albuterol Sulfate (Ventolin Hfa) 90 Mcg Hfa.aer.ad, 1 PUFF INH Q4H 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, (Reported) Entered as Reported by: MARCO RIVAS on 01/03/22 1303 Aspirin (Aspirin) 81 Mg Tab.chew, 81 MG PO DAILY Prescribed by: MINOR OLIVARES on 04/01/20 0927 Atorvastatin Calcium (Atorvastatin Calcium) 80 Mg Tablet, 80 MG PO HS, (Reported) Entered as Reported by: MICHAEL KHAN on 03/19/19 1319 Buspirone HCl (Buspirone HCl) 7.5 Mg Tablet, 7.5 MG PO BID, (Reported) Entered as Reported by: MICHAEL KHAN on 01/22/19 1428 Carvedilol (Coreg) 3.125 Mg Tablet, 3.125 MG PO BID, (Reported) Entered as Reported by: MARCO RIVAS on 01/03/22 1303 Cholecalciferol (Vitamin D3) (Vitamin D3) 25 Mcg Tablet, 25 MCG PO DAILY, (Reported) Entered as Reported by: JYOTI BARKER on 03/31/20 1010 Citalopram Hydrobromide (Citalopram HBr) 40 Mg Tablet, 40 MG PO DAILY, (Reported) Entered as Reported by: MICHAEL KHAN on 01/02/19 0949 Fluticasone Propion/Salmeterol (Fluticasone-Salmeterol 250-50) 250 Mcg-50 Mcg/Dose Blst.w.dev, 1 EACH IH Q12H, (Reported) Entered as Reported by: MARCO RIVAS on 01/03/22 1303 Furosemide (Lasix) 20 Mg Tablet, 20 MG PO DAILY, (Reported) Entered as Reported by: MARCO RIVAS on 01/03/22 1303 Krill/Om-3/Dha/Epa/Phospho/Ast (Krill Oil 1,000 mg Softgel) 1 Each Capsule, 1,000 MG PO HS, (Reported) Entered as Reported by: MICHAEL KHAN on 01/02/19 0949 Liraglutide (Victoza 2-Willi) 0.6 Mg/0.1 Ml Pen.injctr, 1.2 MG SQ HS, (Reported) Entered as Reported by: BRET BERKOWITZ on 03/16/20 0729 Loratadine (Loratadine) 10 Mg Tablet, 10 MG PO DAILY, (Reported) Entered as Reported by: MICHAEL KHAN on 01/22/19 1428 Magnesium Chloride (Mag Delay) 64 Mg Tablet.dr, 64 MG PO BID Prescribed by: BECKY HAZEL on 10/09/22 1220 Metformin HCl (Metformin HCl) 1,000 Mg Tablet, 1,000 MG PO BID Prescribed by: ERIN EM on 01/03/22 1354 Montelukast Sodium (Montelukast Sodium) 10 Mg Tablet, 10 MG PO HS, (Reported) Entered as Reported by: MICHAEL KHAN on 01/22/19 1428 Multivitamin (Multivitamins) 1 Each Tablet, 1 TAB PO DAILY, (Reported) Entered as Reported by: MICHAEL KHAN on 01/02/19 0949 Nitroglycerin (Nitroglycerin) 0.4 Mg Tab.subl, 0.4 MG SL PRN PRN for CHEST PAIN (ANGINA), (Reported) Entered as Reported by: MARCO RIVAS on 01/03/22 1303 Pantoprazole Sodium (Pantoprazole Sodium) 40 Mg Tablet.dr, 40 MG PO DAILY, (Reported) Entered as Reported by: MICHAEL KHAN on 01/02/19 0949 Potassium Chloride (Klor-Con 10) 10 Meq Tablet.er, 10 MEQ PO DAILY, (Reported) Entered as Reported by: MARCO RIVAS on 01/03/22 1303 Ropinirole HCl (Ropinirole HCl) 1 Mg Tablet, 1 MG PO HS PRN for RESTLESSNESS, (Reported) Entered as Reported by: JYOTI BARKER on 03/31/20 1010 Sacubitril/Valsartan (Entresto 49 mg-51 mg Tablet) 49 Mg-51 Mg Tablet, 1 TAB PO BID, (Reported) Entered as Reported by: MARCO RIVAS on 01/03/22 1303 Tramadol HCl (Tramadol HCl) 50 Mg Tablet, 50-100 MG PO Q6H PRN for PAIN- MODERATE, (Reported) Entered as Reported by: MICHAEL KHAN on 06/11/19 0923 Review of Systems Review of Systems Constitutional: No chills, No fever EENTM: No Symptoms Reported Respiratory: No Symptoms Reported Cardiovascular: See HPI Gastrointestinal: See HPI Genitourinary: No Symptoms Reported Musculoskeletal: no symptoms reported Skin: no symptoms reported Psychiatric/Neurological: Anxiety Endocrine: No Symptoms Reported Past Ryiihha-Utqtna-Lmbuto Hx Patient Social History Tobacco Use?: No Smoking Status: Former Smoker (quit in 2019) Use of E-Cig and/or Vaping dev: No Substance use?: No Alcohol Use?: No Immunizations Up To Date Tetanus Booster (TDap): Unknown PED Vaccines UTD: Yes Seasonal Allergies Seasonal Allergies: No Past Medical History Surgery/Hospitalization HX: CAD, CABG 2019 Surgeries: Yes (Coronary stenting x 2 12/2018; 3 vessel bypass with valve repair) CABG, Section, Coronary Stent, Hysterectomy, Orthopedic Respiratory: Yes (Initiation home CPAP 03/18/19, Tobaccoism Hx) COPD Currently Using CPAP: No Currently Using BIPAP: No Cardiac: Yes (CHF, 02/2020: stress test, 2 D Echo, Heart Cath completed) Coronary Artery Disease, Hypertension 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 Sexually Transmitted Disease: No HIV/AIDS: No Genitourinary: No Gastrointestinal: No Musculoskeletal: No Endocrine: Yes (VICTOZA) Diabetes, Non-Insulin dep HEENT: No Cancer: Yes Melanoma Did You Recieve Any Treatments: No What Type of Treatment Did You: Surgical Intervention Psychosocial: No Integumentary: Yes (Melanoma on Right arm Removed) Blood Disorders: No Adverse Reaction/Blood Tranf: No Family Medical History Alcoholism 19 MOTHER Alzheimer's disease 19 FATHER Arthritis 19 FATHER Asthma 19 FATHER Cardiovascular disease 19 FATHER Cataracts 19 FATHER Diabetes mellitus Hypertension 19 FATHER 19 MOTHER Myocardial infarction 19 FATHER Osteoporosis 19 MOTHER Parkinson's disease 19 MOTHER Respiratory disorder 19 MOTHER No Family History of: Glaucoma Physical Exam Vital Signs Vital Signs - First Documented 10/09/22 11:31 Temp 35.6 Pulse 75 Resp 18 B/P (MAP) 123/71 (88) Pulse Ox 95 O2 Delivery Room Air Capillary Refill : Height, Weight, BMI Height: 6'0" Weight: 252lbs. 9.0oz. 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 Norm as Tested, Other (anxious) Skin: Normal Color, Warm/Dry Procedures/Interventions Date of ETT Placement: January 02, 2019 Time of ETT Placement: 1119 Progress/Results/Core Measures Results/Orders Lab Results Laboratory Tests Test 10/09/22 11:20 10/09/22 12:14 Range/Units White Blood Count 8.2 4.3-11.0 10^3/uL Red Blood Count 4.59 3.80-5.11 10^6/uL Hemoglobin 13.6 11.5-16.0 g/dL Hematocrit 42 35-52 % Mean Corpuscular Volume 92 80-99 fL Mean Corpuscular Hemoglobin 30 25-34 pg Mean Corpuscular Hemoglobin Concent 32 32-36 g/dL Red Cell Distribution Width 14.2 10.0-14.5 % Platelet Count 232 130-400 10^3/uL Mean Platelet Volume 11.4 9.0-12.2 fL Immature Granulocyte % (Auto) 0 % Neutrophils (%) (Auto) 59 42-75 % Lymphocytes (%) (Auto) 29 12-44 % Monocytes (%) (Auto) 9 0-12 % Eosinophils (%) (Auto) 3 0-10 % Basophils (%) (Auto) 1 0-10 % Neutrophils # (Auto) 4.8 1.8-7.8 10^3/uL Lymphocytes # (Auto) 2.3 1.0-4.0 10^3/uL Monocytes # (Auto) 0.7 0.0-1.0 10^3/uL Eosinophils # (Auto) 0.2 0.0-0.3 10^3/uL Basophils # (Auto) 0.1 0.0-0.1 10^3/uL Immature Granulocyte # (Auto) 0.0 0.0-0.1 10^3/uL Prothrombin Time 13.3 12.2-14.7 SEC INR Comment 1.0 0.8-1.4 Activated Partial Thromboplast Time 36 H 24-35 SEC Sodium Level 138 135-145 MMOL/L Potassium Level 3.8 3.6-5.0 MMOL/L Chloride Level 99 98-107 MMOL/L Carbon Dioxide Level 25 21-32 MMOL/L Anion Gap 14 5-14 MMOL/L Blood Urea Nitrogen 19 H 7-18 MG/DL Creatinine 1.35 H 0.60-1.30 MG/DL Estimat Glomerular Filtration Rate 43 BUN/Creatinine Ratio 14 Glucose Level 115 H 70-105 MG/DL Calcium Level 9.6 8.5-10.1 MG/DL Corrected Calcium 9.3 8.5-10.1 MG/DL Magnesium Level 1.3 L 1.6-2.4 MG/DL Total Bilirubin 0.6 0.1-1.0 MG/DL Aspartate Amino Transf (AST/SGOT) 14 5-34 U/L Alanine Aminotransferase (ALT/SGPT) 12 0-55 U/L Alkaline Phosphatase 109 40-136 U/L Troponin I < 0.30 <0.30 NG/ML Pro-B-Type Natriuretic Peptide 675.5 H <125.0 PG/ML Total Protein 7.3 6.4-8.2 GM/DL Albumin 4.4 3.2-4.5 GM/DL Lipase 36 8-78 U/L Urine Color YELLOW Urine Clarity CLEAR Urine pH 6.0 5-9 Urine Specific [place] 1.015 L 1.016-1.022 Urine Protein NEGATIVE NEGATIVE Urine Glucose (UA) NEGATIVE NEGATIVE Urine Ketones NEGATIVE NEGATIVE Urine Nitrite NEGATIVE NEGATIVE Urine Bilirubin NEGATIVE NEGATIVE Urine Urobilinogen 1.0 < = 1.0 MG/DL Urine Leukocyte Esterase TRACE H NEGATIVE Urine RBC (Auto) NEGATIVE NEGATIVE Urine RBC NONE /HPF Urine WBC 5-10 H /HPF Urine Squamous Epithelial Cells 2-5 /HPF Urine Crystals NONE /LPF Urine Bacteria TRACE /HPF Urine Casts PRESENT /LPF Urine Hyaline Casts 5-10 H /LPF Urine Mucus SMALL H /LPF Urine Culture Indicated YES My Orders Orders - BECKY HAZEL MD Cbc With Automated Diff (10/09/22 11:13) Magnesium (10/09/22 11:13) Chest 1 View Ap/Pa Only (10/09/22 11:13) Ekg Tracing (10/09/22 11:13) Comprehensive Metabolic Panel (10/09/22 11:13) Protime With Inr (10/09/22 11:13) Partial Thromboplastin Time (10/09/22 11:13) O2 (10/09/22 11:13) Monitor-Rhythm Ecg Trace Only (10/09/22 11:13) Ed Iv/Invasive Line Start (10/09/22 11:13) Lipase (10/09/22 11:13) Troponin I Fs (10/09/22 11:13) Probnp Fs (10/09/22 11:13) Ua Culture If Indicated (10/09/22 11:13) Ns Iv 1000 Ml (Sodium Chloride 0.9%) (10/09/22 11:13) Magnesium 1 Gm/100 Ml Ivpb (Magnesium Olivera (10/09/22 12:02) Urine Culture (10/09/22 12:14) Vital Signs/I&O 10/09/22 10/09/22 11:31 13:19 Temp 35.6 Pulse 75 55 Resp 18 19 B/P (MAP) 123/71 (88) 168/77 Pulse Ox 95 97 O2 Delivery Room Air Room Air Progress Progress Note #1: Progress Note Potential life-threatening diagnosis of myocardial infarction, atrial fibrillation, SVT, electrolyte abnormality, acute on chronic heart failure. Place patient on cardiac telemetry monitoring and my initial interpretation is s inus rhythm with PVCs. Obtain electrocardiogram for further evaluation of her rate and rhythm. Obtain peripheral IV access and send blood for complete blood count, comprehensive metabolic profile, magnesium, troponin, proBNP, lipase. Obtain urinalysis to look for signs of dehydration or infection. Obtain 1 view chest x-ray looking for signs of failure, infiltrate, cardiomegaly, pneumothorax, effusion. Since she had vomiting last week and diarrhea this week will order normal saline 1 L IV fluid bolus for hydration. Progress Note #2: Time: 12:04 Progress Note My personal review of 1 view chest xray shows no acute infiltrate or effusion. I reviewed the radiologist report at 1204 and they did not see any acute process on the 1 view chest x-ray either. The complete blood count was not showing an elevated white blood cell count for infection or low hemoglobin for anemia. Her comprehensive metabolic profile had shown some mild renal insufficiency with a creatinine up to 1.35. She does have low magnesium at 1.3. Normally cardiology likes to have this value around 2. Her troponin I was less than 0.3 which would be 0 and not showing elevation especially considering she has had chest tightness and heart palpitations for the last 2 days. We will supplement her magnesium with 1 g IV of magnesium sulfate and plan on prescribing oral magnesi um at discharge. Have her follow-up with Dr. Em and cardiology for the palpitations and have the labs rechecked within a week for her magnesium and ensure that it was coming up. Progress Note #3: Progress Note Urinalysis had trace Leukocyte esterase and trace bacteria. Culture was reflexed. She denies pain or burning with urination. Will defer antibiotic unless she has a positive culture result. patient was feeling reassured that the heart enzymes did not show acute damage or abnormality. She was feeling a little better after the magnesium infused. Discharge to home with oral magnesium SlowMag 64 mg by mouth twice a day for 2 weeks. Encouraged to have labs and magnesium rechecked within a week and follow up with pcp and/or svp programmatic tv. Return or be seen sooner if more concerns or new symptoms. Initial ECG Impression Date: Oct 09, 2022 Initial ECG Impression Time: 11:07 Initial ECG Rate: 66 Initial ECG Rhythm: Normal Sinus Initial ECG Comparisson: Unchanged (Similar to 01/03/2022) Comment On my personal interpretation and review of her electrocardiogram she shows sinus rhythm with frequent PVCs. Her heart rate of 66 bpm. WV interval 130 ms. There is a right bundle marjorie block. Left ventricular hypertrophy. There is no acute ST elevation. She has nonspecific intraventricular conduction delay. QT interval 446 ms with a QTc interval 460 ms. Overall appears similar to tracing from January 03, 2022. Diagnostic Imaging Diagonstic Imaging: Xray Plain Films/CT/US/NM/MRI: chest Comments My interpretation of the 1 view chest xray shows no acute infiltrate or effusion. Appears similar to image from 01/03/2022. NAME: CARMEN RICHARDSON [facility] REC#: [id number] PT STATUS: REG ER : 1955 PHYSICIAN: BECKY HAZEL MD ADMIT DATE: 10/09/22/ER FS Signed Date of Exam:10/09/22 CHEST 1 VIEW AP/PA ONLY CHEST 1 VIEW AP/PA ONLY Indication: Chest tightness Comparison: 03/19/2019 Findings: No focal airspace disease in the visualized lungs. No pleural effusion or pneumothorax. Stable changes of CABG. Impression: 1. No acute cardiopulmonary process by portable radiography. Dictated by: Dictated on workstation # [id number] Dict: 10/09/22 1150 Trans: 10/09/22 1150 [facility] [id number] Interpreted by: MADELINE TURNER MD Electronically signed by: MADELINE TURNER MD 10/09/22 1150 Reviewed: Reviewed by Me (I reviewed radiologist report at 12:04 PM) Departure Impression Primary Impression: Hypomagnesemia Additional Impressions: Tightness in chest Heart palpitations Disposition: 01 HOME, SELF-CARE Condition: Stable Departure-Patient Inst. Decision time for Depature: 12:42 Referrals: MARYSOL ROWE MD (PCP/Family) Primary Care Physician Patient Instructions: Palpitations ED, Low Magnesium Level (DC) Add. Discharge Instructions: Take the oral magnesium delayed release medicine as 1 pill or 64 mg twice a day for next 2 weeks[address] Check back with Dr. Em or Dr. Rowe about the palpitations and to have your magnesium level rechecked within the next week. Continue on your regular medicines Scripts Magnesium Chloride (Mag Delay) 64 Mg Tablet. 64 MG PO BID for hypomagnesemia for 14 Days, #28 TAB 0 Refills Prov: BECKY HAZEL MD 10/09/22 BECKY HAZEL MD Oct 09, 2022 11:20
[2022-10-09 11:38] LABS: BASOPHILS # (AUTO) 0.1 10^3/uL (0.0-0.1); BASOPHILS % (AUTO) 1 % (0-10); EOSINOPHILS # (AUTO) 0.2 10^3/uL (0.0-0.3); EOSINOPHILS % (AUTO) 3 % (0-10); HEMATOCRIT 42 % (35-52); HEMOGLOBIN 13.6 g/dL (11.5-16.0); LYMPHOCYTES # (AUTO) 2.3 10^3/uL (1.0-4.0); LYMPHOCYTES % (AUTO) 29 % (12-44); MEAN CORPUSCULAR HEMOGLOBIN 30 pg (25-34); MEAN CORPUSCULAR HGB CONC 32 g/dL (32-36); MEAN CORPUSCULAR VOLUME 92 fL (80-99); MEAN PLATELET VOLUME 11.4 fL (9.0-12.2); MONOCYTES # (AUTO) 0.7 10^3/uL (0.0-1.0); MONOCYTES % (AUTO) 9 % (0-12); NEUTROPHILS # (AUTO) 4.8 10^3/uL (1.8-7.8); NEUTROPHILS % (AUTO) 59 % (42-75); PLATELET COUNT 232 10^3/uL (130-400); WHITE BLOOD COUNT 8.2 10^3/uL (4.3-11.0)
[2022-10-09 11:48] LABS: PROTHROMBIN TIME PATIENT 13.3 SEC (12.2-14.7)
--- NOTE | 2022-10-09 11:51 | Diagnostic Imaging Report ---
CHEST 1 VIEW AP/PA ONLY Indication: Chest tightness Comparison: 03/19/2019 Findings: No focal airspace disease in the visualized lungs. No pleural effusion or pneumothorax. Stable changes of CABG. Impression: 1. No acute cardiopulmonary process by portable radiography. Dictated by: Dictated on workstation # [id number]
[2022-10-09 11:59] LABS: CALCIUM 9.6 MG/DL (8.5-10.1); CREATININE SERUM 1.35 MG/DL (0.60-1.30); POTASSIUM 3.8 MMOL/L (3.6-5.0)
[2022-10-09 12:00] LABS: ALBUMIN 4.4 GM/DL (3.2-4.5); BILIRUBIN,TOTAL 0.6 MG/DL (0.1-1.0); MAGNESIUM 1.3 MG/DL (1.6-2.4); TOTAL PROTEIN 7.3 GM/DL (6.4-8.2)
[2022-10-09] MEDS ORDERED: MAGNESIUM 1 GM/100 ML IVPB 100 ML IV STA (12:02)
[2022-10-09] MEDS ORDERED: MAGN64TA12 PO (12:20)
[2022-10-09 12:30] LABS: BILIRUBIN,URINE NEGATIVE (NEGATIVE); CLARITY,URINE CLEAR; COLOR,URINE YELLOW; GLUCOSE, URINE (UA) NEGATIVE (NEGATIVE); KETONES,URINE NEGATIVE (NEGATIVE); LEUKOCYTE ESTERASE ,URINE TRACE (NEGATIVE); NITRITE,URINE NEGATIVE (NEGATIVE); PROTEIN,URINE NEGATIVE (NEGATIVE)
[2022-10-09 12:39] LABS: BACTERIA,URINE TRACE /HPF
[2022-10-09 13:19] VITALS: BP 168/77
== END 2022-10-09 13:25 | disposition home or self-care (01) ==
LOC: EDUNIT# 11:01 → ER FS 11:02
DX: E83.42 Hypomagnesemia (principal); I45.10 Unspecified right bundle-branch block; I51.7 Cardiomegaly; Z87.891 Personal history of nicotine dependence
CPT/HCPCS: 36415; 71045; 80053; 81000; 83690; 83735; 83880; 84484; 85025; 85610; 85730; 87088; 93005; 93041